=== PATIENT | male | born 1935 | race Caucasian/White ===

== ENCOUNTER 2017-06-22 07:31 | Inpatient (IN) | payer MEDICARE ==
[2017-06-22 08:45] LABS: Anisocytosis Slight; Basophils # (A) 0.1 k/uL (0-0.2); Basophils % (A) 1 %; CH 25.5; CHCM 32.6; Eosinophils # (A) 0.4 k/uL (0-0.7); Eosinophils % (A) 3 %; HCT 39.6 % (39.0-53.0); HDW 3.28; HGB 12.8 gm/dL (13.0-17.5); Hypochromasia Slight; Luc # (Auto) 0.13; Luc % (Auto) 1; Lymphocytes # (A) 1.3 k/uL (1.0-4.8); Lymphocytes % (A) 12 %; MCH 25.3 pg (25.0-35.0); MCHC 32.2 g/dL (31.0-37.0); MCV 78.6 fL (80.0-100.0); Mean Platelet Volume 7.4; Microcytosis Slight; Monocytes # (A) 0.7 k/uL (0-1.0); Monocytes % (A) 6 %; Neutrophils # (A) 8.2 k/uL (1.3-7.7); Neutrophils % (A) 76 %; RBC 5.04 m/uL (4.30-5.90); RDW 17.3 % (11.5-15.5); WBC 10.7 k/uL (3.8-10.6); WBC (Perox) 11.36
[2017-06-22 08:52] LABS: INR 1.3 (<1.2); Prothrombin Time 12.7 sec (9.0-12.0)
[2017-06-22 08:57] LABS: Calcium 9.2 mg/dL (8.4-10.2); Potassium 4.1 mmol/L (3.5-5.1); Total Bilirubin 0.9 mg/dL (0.2-1.3); Total Protein 6.2 g/dL (6.3-8.2)
--- NOTE | 2017-06-22 08:57 | XR ---
EXAMINATION TYPE: XR chest 2V DATE OF EXAM: 06/22/2017 COMPARISON: Chest x-ray January 13, 2017. HISTORY: History of open heart surgery with shortness of breath. TECHNIQUE: Frontal and lateral views of the chest are obtained. FINDINGS: There is stable right internal jugular Mediport catheter. Sternal wires and mediastinal cli ps are redemonstrated. There is persistent mild cardiomegaly with dual lead pacemaker and atheroscler otic thoracic aorta. There is chronic emphysematous change with persistent small to moderate size lef t pleural effusion or pleural thickening with increased lateral component noted. Increasing reticular interstitial prominence is present. The osseous structures remain demineralized. IMPRESSION: Background of chronic emphysematous change and chronic fibrosis with increased interstit ial prominence suggests new interstitial edema on background of chronic change, correlate for CHF exa cerbation given finding of mild cardiomegaly. Addition there is suspicious small to moderate lobulate d left pleural effusion or pleural thickening extending to lung apex level noted more prominent versu s prior. Pleural-based neoplasm needs to be considered given unilateral findings.
[2017-06-22] MEDS ORDERED: ASPIRIN 325 MG TAB PO STA (09:06)
[2017-06-22] MEDS ORDERED: FUROSEMIDE 10 MG/ML 4 ML VIAL IV STA (09:06)
[2017-06-22 09:19] LABS: Creatine Kinase MB 0.9 ng/mL (0.0-2.4); Troponin I 0.03 ng/mL (0.000-0.034)
[2017-06-22] MEDS ORDERED: NALOXONE 0.4 MG/ML 1 ML VIAL IV PRN (09:23)
--- NOTE | 2017-06-22 09:33 | ED ---
General Adult HPI - General Chief complaint: Shortness of Breath Stated complaint: Difficulty Breathing Time Seen by Provider: 06/22/17 07:42 Source: patient, RN notes reviewed, old records reviewed Mode of arrival: wheelchair Limitations: no limitations - History of Present Illness Initial comments: 82-year-old male history of CAD status post CABG, congestive heart failure, and COPD presents with a one-month history of worsening dyspnea. Patient does complain of orthopnea which is worse over the past 24 hours. Patient was unable to catch his breath even though he transition from bed to a chair this evening. Patient denies chest pain. Denies significant cough. Denies fever or chills. Patient does note some intermittent trace lower extremity swelling. He has history of pleural effusion requiring drainage this was several years ago. Patient states that approximately 3 weeks ago his Lasix was increased from 40 mg daily to 40 mg twice a day. No other change in medication. No history of chest pain over the past month. No significant change in diet. - Related Data Home Medications Medication Instructions Recorded Confirmed Aspirin EC [Ecotrin Low Dose] 81 mg PO DAILY 01/31/15 08/18/15 Allopurinol [Zyloprim] 100 mg PO BID 08/14/15 08/18/15 Amiodarone [Cordarone] 200 mg PO DAILY 08/14/15 08/18/15 Insulin Aspart [NovoLOG Flexpen] 8 unit SQ HS 08/14/15 08/18/15 Insulin Aspart [NovoLOG Flexpen] 22 unit SQ AC-BRKFST 08/14/15 08/18/15 Lisinopril [Zestril] 2.5 mg PO DAILY 08/14/15 08/18/15 Metoprolol Succinate (ER) [Toprol 25 mg PO BID 08/18/15 08/18/15 XL] Previous Rx's Medication Instructions Recorded Furosemide [Lasix] 40 mg PO BID #120 tab 02/17/15 Spironolactone [Aldactone] 25 mg PO DAILY #30 tab 02/17/15 glipiZIDE [Glucotrol] 5 mg PO AC-BID #60 tab 07/09/15 Allergies Allergy/AdvReac Type Severity Reaction Status Date / Time No Known Allergies Allergy Verified 06/22/17 07:37 Review of Systems ROS Statement: Those systems with pertinent positive or pertinent negative responses have been documented in the HPI. ROS Other: All systems not noted in ROS Statement are negative. Past Medical History Past Medical History: Atrial Fibrillation, Coronary Artery Disease (CAD), Heart Failure, Diabetes Mellitus, Hypertension Additional Past Medical History / Comment(s): Ischemic cardiomyopathy with history of AICD implantation, ventricular tachycardia requiring electrical cardioversion with Dr. 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 tach January 2015, AICD implantation Past Anesthesia/Blood Transfusion Reactions: No Reported Reaction Type of Cardiac Device: Permanent Pacemaker, AICD Device Placement Date:: 2004 Past Psychological History: No Psychological Hx Reported Smoking Status: Former smoker - Past Family History Father Family Medical History: Cancer, Myocardial Infarction ([place]) General Exam Limitations: no limitations General appearance: alert, in no apparent distress Head exam: Present: atraumatic, normocephalic Eye exam: Present: normal appearance, PERRL ENT exam: Present: normal exam, normal oropharynx Neck exam: Present: normal inspection, tenderness Respiratory exam: Present: respiratory distress, rales, decreased breath sounds (At the bases) Cardiovascular Exam: Present: regular rate, normal rhythm GI/Abdominal exam: Present: soft. Absent: distended Extremities exam: Present: normal capillary refill, pedal edema Back exam: Present: normal inspection, full ROM Neurological exam: Present: alert, oriented X3, CN II-XII intact. Absent: motor sensory deficit Psychiatric exam: Present: normal affect, normal mood Skin exam: Present: warm, dry. Absent: cyanosis, diaphoretic Course Vital Signs 06/22/17 07:33 Temperature 97.6 F Pulse Rate 77 Respiratory 18 Rate Blood Pressure 133/63 O2 Sat by Pulse 92 L Oximetry EKG Findings - EKG Comments: EKG Findings:: EKG shows paced rhythm, ventricular rate is 69, IL interval 296, there is right axis deviation, QRS duration 160, long QT at 505. No signs of ischemia. Medical Decision Making - Medical Decision Making 82-year-old male presenting with worsening shortness of breath and orthopnea. Patient does have history of heart failure. Symptoms worsened this evening prompting ER evaluation. On examination patient does appear fluid overloaded with peripheral edema and bilateral Rales on pulmonary auscultation. EKG is nonischemic. There is no history of chest pain. Chest x-ray does show pulmonary vascular congestion with left-sided pleural effusion. Patient is given IV Lasix, and aspirin in the emergency department. Laboratory studies reveal elevated creatinine which is at the patient's baseline. Troponin is mildly elevated in the setting of CK the. BNP is 10,000 consistent with congestive heart failure. Patient will be admitted for further diuresis. Diagnosis: Acute on chronic heart failure, CKD - Lab Data Result diagrams: 06/22/17 08:12 06/22/17 08:12 Lab Results 06/22/17 06/22/17 06/22/17 Range/Units 08:12 08:12 08:12 WBC 10.7 H (3.8-10.6) k/uL RBC 5.04 (4.30-5.90) m/uL Hgb 12.8 L (13.0-17.5) gm/dL Hct 39.6 (39.0-53.0) % MCV 78.6 L (80.0-100.0) fL MCH 25.3 (25.0-35.0) pg MCHC 32.2 (31.0-37.0) g/dL RDW 17.3 H (11.5-15.5) % Plt Count 279 (150-450) k/uL Neutrophils % 76 % Lymphocytes % 12 % Monocytes % 6 % Eosinophils % 3 % Basophils % 1 % Neutrophils # 8.2 H (1.3-7.7) k/uL Lymphocytes # 1.3 (1.0-4.8) k/uL Monocytes # 0.7 (0-1.0) k/uL Eosinophils # 0.4 (0-0.7) k/uL Basophils # 0.1 (0-0.2) k/uL Hypochromasia Slight Anisocytosis Slight Microcytosis Slight PT (9.0-12.0) sec INR (<1.2) APTT (22.0-30.0) sec Sodium 145 (137-145) mmol/L Potassium 4.1 (3.5-5.1) mmol/L Chloride 107 (98-107) mmol/L Carbon Dioxide 25 (22-30) mmol/L Anion Gap 13 mmol/L BUN 42 H (9-20) mg/dL Creatinine 1.95 H (0.66-1.25) mg/dL Est GFR (MDRD) Af Amer 40 (>60 ml/min/1.73 sqM) Est GFR (MDRD) Non-Af 33 (>60 ml/min/1.73 sqM) Glucose 106 H (74-99) mg/dL Calcium 9.2 (8.4-10.2) mg/dL Magnesium 2.0 (1.6-2.3) mg/dL Total Bilirubin 0.9 (0.2-1.3) mg/dL AST 14 L (17-59) U/L ALT 25 (21-72) U/L Alkaline Phosphatase 112 (38-126) U/L Total Creatine Kinase 29 L (55-170) U/L CK-MB (CK-2) 0.9 (0.0-2.4) ng/mL CK-MB (CK-2) Rel Index 3.1 Troponin I 0.030 (0.000-0.034) ng/mL NT-Pro-B Natriuret Pep pg/mL Total Protein 6.2 L (6.3-8.2) g/dL Albumin 3.8 (3.5-5.0) g/dL 06/22/17 06/22/17 Range/Units 08:12 08:12 WBC (3.8-10.6) k/uL RBC (4.30-5.90) m/uL Hgb (13.0-17.5) gm/dL Hct (39.0-53.0) % MCV (80.0-100.0) fL MCH (25.0-35.0) pg MCHC (31.0-37.0) g/dL RDW (11.5-15.5) % Plt Count (150-450) k/uL Neutrophils % % Lymphocytes % % Monocytes % % Eosinophils % % Basophils % % Neutrophils # (1.3-7.7) k/uL Lymphocytes # (1.0-4.8) k/uL Monocytes # (0-1.0) k/uL Eosinophils # (0-0.7) k/uL Basophils # (0-0.2) k/uL Hypochromasia Anisocytosis Microcytosis PT 12.7 H (9.0-12.0) sec INR 1.3 H (<1.2) APTT 27.0 (22.0-30.0) sec Sodium (137-145) mmol/L Potassium (3.5-5.1) mmol/L Chloride (98-107) mmol/L Carbon Dioxide (22-30) mmol/L Anion Gap mmol/L BUN (9-20) mg/dL Creatinine (0.66-1.25) mg/dL Est GFR (MDRD) Af Amer (>60 ml/min/1.73 sqM) Est GFR (MDRD) Non-Af (>60 ml/min/1.73 sqM) Glucose (74-99) mg/dL Calcium (8.4-10.2) mg/dL Magnesium (1.6-2.3) mg/dL Total Bilirubin (0.2-1.3) mg/dL AST (17-59) U/L ALT (21-72) U/L Alkaline Phosphatase (38-126) U/L Total Creatine Kinase (55-170) U/L CK-MB (CK-2) (0.0-2.4) ng/mL CK-MB (CK-2) Rel Index Troponin I (0.000-0.034) ng/mL NT-Pro-B Natriuret Pep 9160 pg/mL Total Protein (6.3-8.2) g/dL Albumin (3.5-5.0) g/dL Disposition Clinical Impression: Systolic congestive heart failure Disposition: ADMITTED IP TO THIS [facility] Condition: Stable Referrals: Clarita Marcelo MD [Primary Care Provider] - 1-2 days Decision to Admit Reason: Admit from EC Decision Date: 06/22/17 Decision Time: 09:33
[2017-06-22 12:16] LABS: Glucose,Whole Blood 102 mg/dL (75-99)
[2017-06-22] MEDS ORDERED: ONDANSETRON 4 MG/2 ML VIAL IVP PRN (13:00)
[2017-06-22] MEDS ORDERED: ACETAMINOPHEN TAB 325 MG TAB PO PRN (13:00)
[2017-06-22] MEDS ORDERED: Magnesium Replacement Protocol 1 EACH MISC MISCELLANE PRN (13:01)
[2017-06-22] MEDS ORDERED: Potassium Replacement Protocol 1 EACH MISC MISCELLANE PRN (13:01)
--- NOTE | 2017-06-22 13:20 | P.HPIM ---
History of Present Illness H&P Date: 06/22/17 Chief Complaint: Worsening shortness of breath This is a 82-year-old gentleman with past medical history noted below significant for history of coronary artery disease with known underlying systolic heart failure who presented to the emergency room with worsening shortness of breath. Patient said that his symptoms has been getting progressively worse over the past week. He denies any chest pain. He is also complaining of worsening bilateral lower extremity swelling. Patient admits that he was only taking Lasix at home once a day whereas he was instructed by me to take Lasix twice a day. His at bedside is frustrated that he is not taking his medication like he is supposed to. In the emergency room chest x- ray showed evidence of fluid overload and BNP was elevated. Patient was started on IV Lasix and is currently admitted to the hospital for further evaluation. Review of Systems Review of system: 14 points review of systems were obtained and were negative except to what were mentioned in the HPI. Past Medical History Past Medical History: Atrial Fibrillation, Coronary Artery Disease (CAD), Cancer , Heart Failure, COPD, Diabetes Mellitus, Hypertension, Liver Disease, Myocardial Infarction ([place]) Additional Past Medical History / Comment(s): Ischemic cardiomyopathy/AICD implantation, ventricular tachycardia/cardioversion, Afib/RVR, 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, NIDDM type II, occasional bilateral feet's toe numbness/tingling, pleural effusion L side with thoracentesis x2, sepsis, urinary retention, hepatitis in 1950 type unknown, some dysphagia-no special diet, Last Myocardial Infarction Date:: 1998 History of Any Multi-Drug Resistant Organisms: None Reported Past Surgical History: AICD, Coronary Bypass/CABG, Pacemaker Additional Past Surgical History / Comment(s): 1998 PTCA, 1998 4 vessel CABG, cardioversion for slow VT, AICD originally implanted 2006 and battery replaced in 2014, L thoracentesis x2, EGD with dilation, colonoscopy, bone marrow bx, bilateral cataract removal, mediport. Past Anesthesia/Blood Transfusion Reactions: No Reported Reaction Type of Cardiac Device: Permanent Pacemaker, AICD Device Placement Date:: 2004 implant/2014 gen change Smoking Status: Former smoker - Past Family History Mother Family Medical History: No Reported History Additional Family Medical History / Comment(s): Mother was healthy and lived to be 86yrs old. Father Family Medical History: Cancer Additional Family Medical History / Comment(s): Father had bone cancer. He also had "heart problems." He at the age of 82 yrs. Medications and Allergies Home Medications Medication Instructions Recorded Confirmed Type Aspirin EC [Ecotrin Low Dose] 81 mg PO DAILY 01/31/15 06/22/17 History Allopurinol [Zyloprim] 200 mg PO DAILY 08/14/15 06/22/17 History Amiodarone [Cordarone] 200 mg PO DAILY 08/14/15 06/22/17 History Cholecalciferol [Vitamin D3] 1,000 unit PO DAILY 06/22/17 06/22/17 History Furosemide [Lasix] 40 mg PO DAILY 06/22/17 06/22/17 History Levothyroxine Sodium [Synthroid] 100 mcg PO DAILY 06/22/17 06/22/17 History Metoprolol Tartrate 12.5 mg PO DAILY 06/22/17 06/22/17 History glipiZIDE [Glucotrol] 5 mg PO BID 06/22/17 06/22/17 History Allergies Allergy/AdvReac Type Severity Reaction Status Date / Time No Known Allergies Allergy Verified 06/22/17 12:21 Physical Exam Vitals: Vital Signs Temp Pulse Pulse Resp BP BP Pulse Ox 06/22/17 12:05 97.4 F L 66 18 113/56 98 06/22/17 11:50 97.8 F 68 18 118/59 94 L 06/22/17 11:42 97.8 F 68 18 118/59 94 L 06/22/17 11:11 70 18 130/58 96 06/22/17 07:33 97.6 F 77 18 133/63 92 L Intake and Output 06/21/17 06/22/17 06/22/17 22:59 06:59 14:59 Output Total 100 Balance -100 Output: Urine 100 Other: Weight 90.718 kg Patient Weight 06/23/17 06:59 Weight 90.718 kg General: The patient is awake and alert, in no distress Eye: there is normal conjunctiva bilaterally. Neck: The neck is supple, there is no JVD. Cardiovascular: Normal S1-S2, no S3-S4, no murmurs. Respiratory: Lungs with bibasilar crackles Gastrointestinal: Abdomen is soft, nontender Musculoskeletal: There is +2 edema up to the midshin. Neurological:. Speech is normal. Skin: Skin is warm and dry Results CBC & Chem 7: 06/22/17 08:12 06/22/17 08:12 Labs: Abnormal Lab Results - Last 24 Hours (Table) 06/22/17 06/22/17 06/22/17 Range/Units 08:12 08:12 08:12 WBC 10.7 H (3.8-10.6) k/uL Hgb 12.8 L (13.0-17.5) gm/dL MCV 78.6 L (80.0-100.0) fL RDW 17.3 H (11.5-15.5) % Neutrophils # 8.2 H (1.3-7.7) k/uL PT (9.0-12.0) sec INR (<1.2) BUN 42 H (9-20) mg/dL Creatinine 1.95 H (0.66-1.25) mg/dL Glucose 106 H (74-99) mg/dL POC Glucose (mg/dL) (75-99) mg/dL AST 14 L (17-59) U/L Total Creatine Kinase 29 L (55-170) U/L Total Protein 6.2 L (6.3-8.2) g/dL 06/22/17 06/22/17 Range/Units 08:12 12:11 WBC (3.8-10.6) k/uL Hgb (13.0-17.5) gm/dL MCV (80.0-100.0) fL RDW (11.5-15.5) % Neutrophils # (1.3-7.7) k/uL PT 12.7 H (9.0-12.0) sec INR 1.3 H (<1.2) BUN (9-20) mg/dL Creatinine (0.66-1.25) mg/dL Glucose (74-99) mg/dL POC Glucose (mg/dL) 102 H (75-99) mg/dL AST (17-59) U/L Total Creatine Kinase (55-170) U/L Total Protein (6.3-8.2) g/dL Thrombosis Risk Factor Assmnt - Choose All That Apply Any of the Below Risk Factors Present?: Yes Each Factor Represents 1 point: Abnormal pulmonary function (COPD), Heart failure (<1month), Obesity (BMI >25), Swollen legs (current) Other Risk Factors: Yes Each Risk Factor Represents 2 Points: Malignancy Each Risk Factor Represents 3 Points: Age 75 years or older Other congenital or acquired thrombophilia - If yes, enter type in comment: No Thrombosis Risk Factor Assessment Total Risk Factor Score: 9 Thrombosis Risk Factor Assessment Level: High Risk Assessment and Plan Plan: 1. Acute systolic heart failure exacerbation: Last echocardiogram approximately a month ago in the office showing EF of 20% 2. Underlying ischemic cardiomyopathy 3. 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 Essential hypertension: Blood pressure well-controlled 5. Next hyperlipidemia, diet-controlled 6. Underlying hypothyroidism on levothyroxin 7. Stage IIIB chronic kidney disease 8. Suspicious lobulated left pleural effusion with concerns about pleural- based neoplasm: I will consult pulmonology for further evaluation. May consider computed tomography scan of the chest without contrast. Today, I reviewed his medication list the lab work results. Continue diuresis with IV Lasix. Monitor kidney function and electrolytes closely. Consult cardiology for further evaluation. Repeat lab work in the morning. Patient was counseled extensively about medication compliance.
[2017-06-22 14:49] LABS: Creatine Kinase MB 0.8 ng/mL (0.0-2.4); Troponin I 0.025 ng/mL (0.000-0.034)
--- NOTE | 2017-06-22 15:14 | P.CNPUL ---
History of Present Illness Consult date: 06/22/17 Reason for consult: dyspnea, cough, chest pain, COPD, hypoxemia, pleural effusion History of present illness: Patient seen and evaluated examined on 6 floor is present at the bedside patient has been having increasing shortness of breath for 2-3 weeks has some dry nonproductive cough is present as well he also noted some increased swelling of the lower extremity he has been taking his Lasix off and on with due to progressive shortness of breath cough not feeling well he's been advised to come into the emergency department here where he was seen evaluated examined now admitted into the hospital for further evaluation on specific questioning he denies any night sweats or fever or chills cough is mostly dry and nonproductive he has received Lasix and he is been diuresing very well. This is a 82-year-old gentleman with past medical history noted below significant for history of coronary artery disease with known underlying systolic heart failure who presented to the emergency room with worsening shortness of breath. Patient said that his symptoms has been getting progressively worse over the past week. He denies any chest pain. He is also complaining of worsening bilateral lower extremity swelling. Patient admits that he was only taking Lasix at home once a day whereas he was instructed by me to take Lasix twice a day. His at bedside is frustrated that he is not taking his medication like he is supposed to. In the emergency room chest x- ray showed evidence of fluid overload and BNP was elevated. Patient was started on IV Lasix and is currently admitted to the hospital for further evaluation. Review of Systems Constitutional: Reports as per HPI, Reports daytime sleepiness, Reports fatigue , Reports poor appetite, Reports weakness Eyes: denies as per HPI, denies blurred vision, denies bulging eye, denies decreased vision, denies diplopia, denies discharge, denies dry eye, denies irritation, denies itching, denies pain, denies photophobia, denies loss of peripheral vision, denies loss of vision, denies tunnel vision/blind spots Ears: deny: decreased hearing, ear discharge, earache, tinnitus Ears, nose, mouth and throat: Reports as per HPI Cardiovascular: Reports as per HPI Respiratory: Reports as per HPI Gastrointestinal: Reports as per HPI Genitourinary: Reports as per HPI Musculoskeletal: Reports as per HPI Musculoskeletal: absent: ankle pain, ankle stiffness, ankle swelling, as per HPI , elbow pain, elbow stiffness, elbow swelling, foot pain, foot stiffness, foot swelling, hand pain, hand stiffness, hand swelling, hip pain, hip stiffness, hip swelling, knee pain, knee stiffness, knee swelling, shoulder pain, shoulder stiffness, shoulder swelling, wrist pain, wrist stiffness, wrist swelling Integumentary: Reports as per HPI Neurological: Reports as per HPI Psychiatric: Reports as per HPI Endocrine: Reports as per HPI Hematologic/Lymphatic: Reports as per HPI Allergic/Immunologic: Reports as per HPI Past Medical History Past Medical History: Atrial Fibrillation, Coronary Artery Disease (CAD), Cancer , Heart Failure, COPD, Diabetes Mellitus, Hypertension, Liver Disease, Myocardial Infarction ([place]) Additional Past Medical History / Comment(s): Ischemic cardiomyopathy/AICD implantation, ventricular tachycardia/cardioversion, Afib/RVR, 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, NIDDM type II, occasional bilateral feet's toe numbness/tingling, pleural effusion L side with thoracentesis x2, sepsis, urinary retention, hepatitis in 1950 type unknown, some dysphagia-no special diet, Last Myocardial Infarction Date:: 1998 History of Any Multi-Drug Resistant Organisms: None Reported Past Surgical History: AICD, Coronary Bypass/CABG, Pacemaker Additional Past Surgical History / Comment(s): 1998 PTCA, 1998 4 vessel CABG, cardioversion for slow VT, AICD originally implanted 2006 and battery replaced in 2014, L thoracentesis x2, EGD with dilation, colonoscopy, bone marrow bx, bilateral cataract removal, mediport. Past Anesthesia/Blood Transfusion Reactions: No Reported Reaction Type of Cardiac Device: Permanent Pacemaker, AICD Device Placement Date:: 2004 implant/2014 gen change Smoking Status: Former smoker - Past Family History Mother Family Medical History: No Reported History Additional Family Medical History / Comment(s): Mother was healthy and lived to be 86yrs old. Father Family Medical History: Cancer Additional Family Medical History / Comment(s): Father had bone cancer. He also had "heart problems." He at the age of 82 yrs. Medications and Allergies Home Medications Medication Instructions Recorded Confirmed Type Aspirin EC [Ecotrin Low Dose] 81 mg PO DAILY 01/31/15 06/22/17 History Allopurinol [Zyloprim] 200 mg PO DAILY 08/14/15 06/22/17 History Amiodarone [Cordarone] 200 mg PO DAILY 08/14/15 06/22/17 History Cholecalciferol [Vitamin D3] 1,000 unit PO DAILY 06/22/17 06/22/17 History Furosemide [Lasix] 40 mg PO DAILY 06/22/17 06/22/17 History Levothyroxine Sodium [Synthroid] 100 mcg PO DAILY 06/22/17 06/22/17 History Metoprolol Tartrate 12.5 mg PO DAILY 06/22/17 06/22/17 History glipiZIDE [Glucotrol] 5 mg PO BID 06/22/17 06/22/17 History Allergies Allergy/AdvReac Type Severity Reaction Status Date / Time No Known Allergies Allergy Verified 06/22/17 12:21 Physical Exam Vitals: Vital Signs Temp Pulse Pulse Resp BP BP Pulse Ox 06/22/17 12:05 97.4 F L 66 18 113/56 98 06/22/17 11:50 97.8 F 68 18 118/59 94 L 06/22/17 11:42 97.8 F 68 18 118/59 94 L 06/22/17 11:11 70 18 130/58 96 06/22/17 07:33 97.6 F 77 18 133/63 92 L Intake and Output 06/22/17 06/22/17 06/22/17 06:59 14:59 22:59 Output Total 100 Balance -100 Output: Urine 100 Other: Weight 90.718 kg Patient Weight 06/23/17 06:59 Weight 90.718 kg General: The patient is awake and alert, in no distress Eye: there is normal conjunctiva bilaterally. Neck: The neck is supple, there is no JVD. Cardiovascular: Normal S1-S2, no S3-S4, no murmurs. Respiratory: Lungs with bibasilar crackles Gastrointestinal: Abdomen is soft, nontender Musculoskeletal: There is +2 edema up to the midshin. Neurological:. Speech is normal. Skin: Skin is warm and dry Results - Laboratory Findings CBC and BMP: 06/22/17 08:12 06/22/17 08:12 PT/INR, D-dimer PT 12.7 sec (9.0-12.0) H 06/22/17 08:12 INR 1.3 (<1.2) H 06/22/17 08:12 Abnormal lab findings: Abnormal Labs 06/22/17 06/22/17 06/22/17 08:12 08:12 08:12 WBC 10.7 H Hgb 12.8 L MCV 78.6 L RDW 17.3 H Neutrophils # 8.2 H PT INR BUN 42 H Creatinine 1.95 H Glucose 106 H POC Glucose (mg/dL) AST 14 L Total Creatine Kinase 29 L Total Protein 6.2 L 06/22/17 06/22/17 06/22/17 08:12 12:11 13:46 WBC Hgb MCV RDW Neutrophils # PT 12.7 H INR 1.3 H BUN Creatinine Glucose POC Glucose (mg/dL) 102 H AST Total Creatine Kinase 27 L Total Protein - Diagnostic Findings Chest x-ray: report reviewed, image reviewed (Left-sided pleural effusion slightly worse than before) Assessment and Plan Plan: 1. Acute systolic heart failure exacerbation: Last echocardiogram approximately a month ago in the office showing EF of 20% 2. Suspicious lobulated left pleural effusion with concerns about pleural-based neoplasm: I will repeat chest x-ray for further evaluation. May consider computed tomography scan of the chest without contrast, pending finding on chest x-ray 3. Coronary artery disease with history of CABG many years ago 4. Essential hypertension: Blood pressure well-controlled 5. Next hyperlipidemia, diet-controlled 6. Underlying hypothyroidism on levothyroxin 7. Stage IIIB chronic kidney disease 8. History of chronic recurrent left pleural effusion with history of lymphoma requiring frequent thoracentesis on the left side, lately patient has been in remission in that regard Time with Patient: Greater than 30
--- NOTE | 2017-06-22 15:53 | P.PN ---
Progress Note - Text I follow this patient in the office and I saw him on 06/09/2017. Patient was supposed to go to the office for stress test. He been complaining of vague discomfort of the chest and shortness of breath. I had increased dose of Lasix. This morning I met him in the parking lot of the office and he was complaining of shortness of breath orthopnea and PND which is getting worse and therefore I sent him to the emergency room. I spoke to the nurse practitioner on the service Dr. Alexis and he will be seen by Dr. Xiong My plan was to start ENTRESTO and switch to carvedilol, watch electrolytes increase the dose of Lasix that he is noncompliant with diuretic therapy and consider adding spironolactone as long as his renal function and potassium are within normal limits. TSH checked He has an underlying left bundle branch block pattern and I will consider biventricular ICD upgrade in the future for heart failure management Dr. courtney's note was reviewed regarding the loculated pleural effusion and I will await further evaluation with CT See full evaluation/consultation by Dr. Xiong and Dr. alexis
[2017-06-22 16:46] LABS: Glucose,Whole Blood 117 mg/dL (75-99)
[2017-06-22] MEDS: glipiZIDE 5 MG TAB PO SCH (17:23)
[2017-06-22] MEDS: CARVEDILOL 1.563 MG TAB PO SCH (17:23)
[2017-06-22] MEDS: HEPARIN SODIUM,PORCINE 5,000 UNIT/ML 1 ML VIAL SQ SCH (20:05)
[2017-06-22] MEDS: FUROSEMIDE 10 MG/ML 4 ML VIAL IV SCH (20:05)
[2017-06-22 20:54] LABS: Glucose,Whole Blood 82 mg/dL (75-99)
[2017-06-22] MEDS ORDERED: METOPROLOL TARTRATE 12.5 MG TAB PO SCH (21:00)
[2017-06-22 21:06] LABS: Creatine Kinase MB 0.8 ng/mL (0.0-2.4); Troponin I 0.023 ng/mL (0.000-0.034)
[2017-06-23 05:42] LABS: Glucose,Whole Blood 89 mg/dL (75-99)
[2017-06-23 06:03] LABS: Anisocytosis Slight; Basophils # (A) 0.1 k/uL (0-0.2); Basophils % (A) 1 %; CH 25.3; Eosinophils # (A) 0.4 k/uL (0-0.7); Eosinophils % (A) 5 %; HCT 39.7 % (39.0-53.0); HDW 3.17; HGB 12.3 gm/dL (13.0-17.5); Hypochromasia Slight; Luc # (Auto) 0.14; Luc % (Auto) 2; Lymphocytes # (A) 1.5 k/uL (1.0-4.8); Lymphocytes % (A) 19 %; MCH 24.7 pg (25.0-35.0); MCV 79.5 fL (80.0-100.0); Mean Platelet Volume 7.4; Monocytes # (A) 0.6 k/uL (0-1.0); Monocytes % (A) 8 %; Neutrophils # (A) 5.2 k/uL (1.3-7.7); Neutrophils % (A) 66 %; RBC 4.99 m/uL (4.30-5.90); RDW 17.3 % (11.5-15.5); WBC 7.9 k/uL (3.8-10.6); WBC (Perox) 8.17
[2017-06-23 06:15] LABS: Calcium 8.9 mg/dL (8.4-10.2); Magnesium 1.9 mg/dL (1.6-2.3); Phosphorous 3.8 mg/dL (2.5-4.5); Potassium 4.5 mmol/L (3.5-5.1); Total Protein 5.9 g/dL (6.3-8.2)
[2017-06-23] MEDS: glipiZIDE 5 MG TAB PO SCH ×2 (06:50→17:19)
[2017-06-23] MEDS: CARVEDILOL 1.563 MG TAB PO SCH ×2 (06:50→17:19)
[2017-06-23] MEDS: LEVOTHYROXINE 100 MCG TAB PO SCH (06:50)
--- NOTE | 2017-06-23 07:52 | P.PN ---
Subjective Principal diagnosis: Acute on chronic hypoxic respiratory failure, acute exacerbation of CHF related to acute on chronic systolic heart failure, left-sided pleural effusion, history of B-cell lymphoma, history of chronic recurrent pleural effusion with multiple thoracentesis on the left side 06/23/2017, patient seen and evaluated examined during the rounds he is awake and alert breathing comfortably he is currently on room air breathing fairly well but does get short of breath occasionally he does desire deep breaths, it home however he is on home oxygen while in the hospital he is on oxygen as well. Temporary disconnected himself I have advised him to keep on using the oxygen given his marginal saturation. He denies any cough he's been diuresing fairly well swelling in the lower extremity has been improving along with his respiratory status as well Objective - Vital Signs Vital signs: Vital Signs Temp 97.4 F L 06/23/17 04:00 Pulse 70 06/23/17 04:00 Resp 18 06/23/17 04:00 BP 106/54 06/23/17 04:00 Pulse Ox 94 L 06/23/17 04:00 Intake & Output 06/22/17 06/23/17 06/23/17 18:59 06:59 18:59 Intake Total 360 100 Output Total 1100 800 Balance -740 -800 100 Weight 90.718 kg 88.8 kg Intake: Oral 360 100 Output: Urine 1100 800 Other: Voiding Method Urinal # Voids 2 - Exam General: The patient is awake and alert, in no distress Eye: there is normal conjunctiva bilaterally. Neck: The neck is supple, there is no JVD. No bruit and no lymphadenopathy, neck veins however prominent Cardiovascular: Normal S1-S2, no S3-S4, no murmurs. Respiratory: Lungs with bibasilar crackles, slightly decreased air entry on the left base is present with some dullness to percussion appears to have improved compared to yesterday Gastrointestinal: Abdomen is soft, nontender Musculoskeletal: There is trace edema at pretibial area Neurological:. Speech is normal. Coordination intact good bilateral strength and cranial last 2-12 are within normal limit. Neuro exam otherwise normal Skin: Skin is warm and dry - Labs CBC & Chem 7: 06/23/17 05:35 06/23/17 05:35 Labs: Abnormal Lab Results - Last 24 Hours (Table) 09/06/22/17 06/22/17 Range/Units 08:12 08:12 08:12 WBC 10.7 H (3.8-10.6) k/uL Hgb 12.8 L (13.0-17.5) gm/dL MCV 78.6 L (80.0-100.0) fL MCH (25.0-35.0) pg RDW 17.3 H (11.5-15.5) % Neutrophils # 8.2 H (1.3-7.7) k/uL PT (9.0-12.0) sec INR (<1.2) BUN 42 H (9-20) mg/dL Creatinine 1.95 H (0.66-1.25) mg/dL Glucose 106 H (74-99) mg/dL POC Glucose (mg/dL) (75-99) mg/dL AST 14 L (17-59) U/L Total Creatine Kinase 29 L (55-170) U/L Total Protein 6.2 L (6.3-8.2) g/dL 06/22/17 06/22/17 06/22/17 Range/Units 08:12 12:11 13:46 WBC (3.8-10.6) k/uL Hgb (13.0-17.5) gm/dL MCV (80.0-100.0) fL MCH (25.0-35.0) pg RDW (11.5-15.5) % Neutrophils # (1.3-7.7) k/uL PT 12.7 H (9.0-12.0) sec INR 1.3 H (<1.2) BUN (9-20) mg/dL Creatinine (0.66-1.25) mg/dL Glucose (74-99) mg/dL POC Glucose (mg/dL) 102 H (75-99) mg/dL AST (17-59) U/L Total Creatine Kinase 27 L (55-170) U/L Total Protein (6.3-8.2) g/dL 06/22/17 06/22/17 06/23/17 Range/Units 16:32 20:23 05:35 WBC (3.8-10.6) k/uL Hgb 12.3 L (13.0-17.5) gm/dL MCV 79.5 L (80.0-100.0) fL MCH 24.7 L (25.0-35.0) pg RDW 17.3 H (11.5-15.5) % Neutrophils # (1.3-7.7) k/uL PT (9.0-12.0) sec INR (<1.2) BUN (9-20) mg/dL Creatinine (0.66-1.25) mg/dL Glucose (74-99) mg/dL POC Glucose (mg/dL) 117 H (75-99) mg/dL AST (17-59) U/L Total Creatine Kinase 24 L (55-170) U/L Total Protein (6.3-8.2) g/dL 06/23/17 Range/Units 05:35 WBC (3.8-10.6) k/uL Hgb (13.0-17.5) gm/dL MCV (80.0-100.0) fL MCH (25.0-35.0) pg RDW (11.5-15.5) % Neutrophils # (1.3-7.7) k/uL PT (9.0-12.0) sec INR (<1.2) BUN 44 H (9-20) mg/dL Creatinine 2.10 H (0.66-1.25) mg/dL Glucose (74-99) mg/dL POC Glucose (mg/dL) (75-99) mg/dL AST (17-59) U/L Total Creatine Kinase (55-170) U/L Total Protein 5.9 L (6.3-8.2) g/dL - Imaging and Cardiology Chest x-ray: report reviewed, image reviewed (Chest x-ray performed to the earlier this morning on 06/23/2017 reviewed and compared with a chest x-ray performed on 06/22/2017 today morning x-ray is a portable view however continued to manifest interstitial edema with chronic changes in the left lower lobe which however appears to be not much change as dictated in plan we'll proceed with a computed tomography scan of the chest without dye) Assessment and Plan Plan: 1. Acute systolic heart failure exacerbation: Last echocardiogram approximately a month ago in the office showing EF of 20% 2. Suspicious lobulated left pleural effusion with concerns about pleural-based neoplasm: I have reviewed the repeat chest x-ray for further evaluation, there appears to be a chronic pleural effusion and pleural thickening, would consider obtaining computed tomography scan of the chest without contrast, 3. Coronary artery disease with history of CABG many years ago 4. Essential hypertension: Blood pressure well-controlled 5. Next hyperlipidemia, diet-controlled 6. Underlying hypothyroidism on levothyroxin 7. Stage IIIB chronic kidney disease 8. History of chronic recurrent left pleural effusion with history of lymphoma requiring frequent thoracentesis on the left side, lately patient has been in remission in that regard Time with Patient: Greater than 30
[2017-06-23] MEDS: FUROSEMIDE 10 MG/ML 4 ML VIAL IV SCH ×2 (09:02→20:22)
[2017-06-23] MEDS: CHOLECALCIFEROL 1,000 UNIT TAB PO SCH (09:02)
[2017-06-23] MEDS: HEPARIN SODIUM,PORCINE 5,000 UNIT/ML 1 ML VIAL SQ SCH ×2 (09:02→20:23)
[2017-06-23] MEDS: ALLOPURINOL 100 MG TAB PO SCH (09:02)
[2017-06-23] MEDS: AMIODARONE 200 MG TAB PO SCH (09:02)
[2017-06-23] MEDS: ASPIRIN 81 MG PO SCH (09:02)
--- NOTE | 2017-06-23 09:07 | XR ---
EXAMINATION TYPE: XR chest 1V DATE OF EXAM: 06/23/2017 COMPARISON: 06/22/2017 HISTORY: Difficulty breathing FINDINGS: There are bilateral pleural effusions with cardiomegaly and bibasilar infiltrate. There is a diffuse interstitial pattern. Postsurgical changes are noted. Mediport catheter seen. One of the sternotomy wires appears disrupted but stable. Arthropathy of the shoulders. IMPRESSION: 1. Bilateral pleural effusions greater on the left basilar infiltrate. Correlate for underlying inter stitial pulmonary fibrosis. Superimposed venous congestion or pneumonitis in the differential diagnos is.
--- NOTE | 2017-06-23 09:10 | CT ---
EXAMINATION TYPE: CT chest wo con DATE OF EXAM: 06/23/2017 COMPARISON: 01/18/2012 HISTORY: Pt poor history, Mass CT DLP: 529.1 mGycm. Automated Exposure Control for Dose Reduction was Utilized. TECHNIQUE: CT scan of the thorax is performed without IV contrast. FINDINGS: LUNGS: Diffuse interseptal lobular thickening is again appreciated, more pronounced than on the prior examination. This is seen throughout although perhaps more pronounced within the upper lungs. Locula robinson fluid is seen within the left interlobar fissure. Small layering bilateral pleural effusions are appreciated with associated minimal compressive dependent atelectasis. Mild paraseptal emphysematous changes are present. No bronchiectasis is appreciated. No pulmonary mass is seen, however evaluation for pulmonary nodules is diminished due to the scattered geographic groundglass opacities and interse ptal lobular thickening. The tracheobronchial tree is patent. MEDIASTINUM: Left ventricular enlargement is again seen as well as multilead left-sided cardiac devic e, diffuse three-vessel coronary artery calcifications, valvular calcifications and calcific atheroma tous changes of the thoracic aorta. Lack of IV contrast is noted to limit evaluation for mediastinal and especially hilar adenopathy. There are no definitive greater than 1 cm hilar or mediastinal lymph nodes. Nearly enlarged 1.0 cm right paratracheal lymph node is slightly enlarged in comparison to t he prior exam of 01/18/2012. Subcarinal lymph node has similar appearance. Hilar calcified mediastinal lymph nodes are noted. OSSEOUS STRUCTURES: Moderate degenerative changes of the visualized thoracic spine are seen as well a s median sternotomy wires. Punctate sclerotic focus is present within the lateral seventh rib on the right, unchanged from the prior and most likely relating to benign bone island. OTHER: Bilateral retroareolar gynecomastia is present. Small hiatal hernia is present. Scattered punc grande calcifications are seen within the splenic parenchyma. Exophytic left 4.5 cm upper pole renal cy st is seen as well as exophytic anterior midpole right 3.1 cm renal cyst. Punctate calcification is s een within the hepatic parenchyma. 1.9 cm hepatic cyst is present within the left lobe. IMPRESSION: 1. Progressed geographic groundglass airspace disease and interseptal lobular thickening as well as b ilateral pleural effusions and cardiomegaly all suggestive of decompensated congestive heart failure. This limits evaluation for pulmonary nodules although no pulmonary masses are seen. Loculated fluid is seen in the left interlobar fissure. 2. Prominent but nonenlarged right paratracheal lymph node, increased in size from the prior exam of 2011. This finding is nonspecific and may be reactive. 3. Incidental note is made of bilateral simple renal cysts, hepatic cyst, small hiatal hernia, spleni c/hepatic/hilar granulomatous disease and bilateral gynecomastia.
--- NOTE | 2017-06-23 11:19 | P.PN ---
Subjective Patient is feeling better today. He is diuresing well. Objective - Vital Signs Vital signs: Vital Signs Temp 97.2 F L 06/23/17 08:00 Pulse 77 06/23/17 08:00 Resp 18 06/23/17 08:00 BP 90/51 06/23/17 08:00 Pulse Ox 96 06/23/17 08:00 Intake & Output 06/22/17 06/23/17 06/23/17 18:59 06:59 18:59 Intake Total 360 100 Output Total 1100 800 Balance -740 -800 100 Weight 90.718 kg 88.8 kg Intake: Oral 360 100 Output: Urine 1100 800 Other: Voiding Method Urinal Urinal # Voids 2 1 - Exam General: The patient is awake and alert, in no distress Eye: there is normal conjunctiva bilaterally. Neck: The neck is supple, there is no JVD. Cardiovascular: Normal S1-S2, no S3-S4, no murmurs. Respiratory: Lungs clear to auscultation bilaterally Gastrointestinal: Abdomen is soft, nontender Musculoskeletal: There is +1 pedal edema. Skin: Skin is warm and dry - Labs CBC & Chem 7: 06/23/17 05:35 06/23/17 05:35 Labs: Abnormal Lab Results - Last 24 Hours (Table) 06/22/17 06/22/17 06/22/17 Range/Units 12:11 13:46 16:32 Hgb (13.0-17.5) gm/dL MCV (80.0-100.0) fL MCH (25.0-35.0) pg RDW (11.5-15.5) % BUN (9-20) mg/dL Creatinine (0.66-1.25) mg/dL POC Glucose (mg/dL) 102 H 117 H (75-99) mg/dL Total Creatine Kinase 27 L (55-170) U/L Total Protein (6.3-8.2) g/dL 06/22/17 06/23/17 06/23/17 Range/Units 20:23 05:35 05:35 Hgb 12.3 L (13.0-17.5) gm/dL MCV 79.5 L (80.0-100.0) fL MCH 24.7 L (25.0-35.0) pg RDW 17.3 H (11.5-15.5) % BUN 44 H (9-20) mg/dL Creatinine 2.10 H (0.66-1.25) mg/dL POC Glucose (mg/dL) (75-99) mg/dL Total Creatine Kinase 24 L (55-170) U/L Total Protein 5.9 L (6.3-8.2) g/dL Assessment and Plan Plan: 1. Acute systolic heart failure exacerbation: Last echocardiogram approximately a month ago in the office showing EF of 20% 2. Underlying ischemic cardiomyopathy 3. Coronary artery disease with history of CABG many years ago 4. Essential hypertension: Blood pressure well-controlled 5. Next hyperlipidemia, diet-controlled 6. Underlying hypothyroidism on levothyroxin 7. Stage IIIB chronic kidney disease 8. Bilateral pleural effusion with evidence of fluid overload Today, I reviewed his medication list the lab work results. Continue diuresis with IV Lasix. Monitor kidney function and electrolytes closely. Cardiology and pulmonology following closely. Repeat lab work in the morning. Patient was started on Entresto
[2017-06-23 11:34] LABS: Glucose,Whole Blood 96 mg/dL (75-99)
--- NOTE | 2017-06-23 15:03 | CONS ---
ISAAC Pack is an 82-year-old gentleman with history of coronary artery disease, ischemic cardiomyopathy with severe LV systolic dysfunction, diabetes, hypertension, dyslipidemia. He is admitted to hospital with acute exacerbation of chronic systolic heart failure. His baseline ejection fraction is around 20%. His symptoms are primarily in the form of progressively worsening shortness of breath and some leg edema. He had recently been seen by Dr. Carrera in our office, and his note is in the chart. Please review it if you need to. At the time of my evaluation this morning, patient is comfortable at rest, hemodynamically stable, able to lie flat in the bed, and leg edema had improved. PAST MEDICAL HISTORY: Past medical history is significant for: 1. Coronary artery disease, status post CABG. 2. Status post AICD. 3. Diabetes. 4. Atrial fibrillation. 5. Congestive heart failure. 6. COPD. MEDICATIONS: Medications at home included 1. Aspirin. 2. Amiodarone 200 mg daily. 3. Lasix. 4. Metoprolol. 5. Synthroid. 6. Glipizide. ALLERGIES: CHARTED. FAMILY HISTORY: Negative for premature coronary artery disease. SOCIAL HISTORY: Negative for current smoking, ETOH abuse or drug abuse. REVIEW OF SYSTEMS: HEENT is unremarkable. CARDIAC: As described above. RESPIRATORY: As described above. GI: Negative. GENITOURINARY: Negative. ALLERGY/IMMUNOLOGIC: Negative. SKIN: Negative. MUSCULOSKELETAL: Significant for arthritis. PSYCHOSOCIAL: Negative. ENDOCRINE: Negative. DERMATOLOGICAL: Negative. CONSTITUTIONAL: Negative. ONCOLOGICAL: Negative. Rest of the system review is not relevant. EXAM: He is comfortable at rest. Vital signs are stable. There is no jugular venous distention. Carotid upstroke is normal. There is no bruit. Chest exam reveals diminished air entry at the bases. Heart exam reveals first and second heart sounds. No gallop. No murmur. ABDOMEN: Soft, nontender. Examination of the extremities reveals 1+ edema. Peripheral pulses are felt. LABS/IMAGING: Hemoglobin of 12.3. Platelet count is 265. Potassium is 4.5. BUN is 44. Creatinine is 2.1. EKG shows sinus rhythm, first-degree AV block and intraventricular conduction delay. CT scan of the chest showed small bilateral pleural effusions. ASSESSMENT: 1. Acute exacerbation of chronic systolic heart failure. 2. Coronary artery disease. 3. Status post AICD. PLAN: Patient will continue the Coreg, aspirin, amiodarone, Lasix 40 IV q.12, and had just been started on Entresto. Patient is not a candidate for Aldactone, as he has renal insufficiency with a creatinine of 2.1. MMTORIEL / TURNERN: [id number] /
[2017-06-23 16:31] LABS: Glucose,Whole Blood 109 mg/dL (75-99)
[2017-06-23] MEDS: SACUBITRIL/VALSARTAN 24 MG-26 MG TABLET PO SCH (20:22)
[2017-06-23 21:06] LABS: Glucose,Whole Blood 127 mg/dL (75-99)
[2017-06-24 06:05] LABS: Anisocytosis Slight; Basophils # (A) 0.1 k/uL (0-0.2); Basophils % (A) 1 %; CH 25.2; CHCM 32.1; Eosinophils # (A) 0.4 k/uL (0-0.7); Eosinophils % (A) 5 %; HCT 39.7 % (39.0-53.0); HDW 3.18; HGB 12.7 gm/dL (13.0-17.5); Hypochromasia Slight; Luc # (Auto) 0.13; Luc % (Auto) 2; Lymphocytes # (A) 1.6 k/uL (1.0-4.8); Lymphocytes % (A) 22 %; MCH 25.1 pg (25.0-35.0); MCV 78.7 fL (80.0-100.0); Mean Platelet Volume 7.6; Microcytosis Slight; Monocytes # (A) 0.5 k/uL (0-1.0); Monocytes % (A) 7 %; Neutrophils # (A) 4.8 k/uL (1.3-7.7); Neutrophils % (A) 64 %; RBC 5.04 m/uL (4.30-5.90); RDW 16.9 % (11.5-15.5); WBC 7.5 k/uL (3.8-10.6); WBC (Perox) 7.03
[2017-06-24 06:12] LABS: Glucose,Whole Blood 93 mg/dL (75-99)
[2017-06-24 06:15] LABS: Calcium 8.8 mg/dL (8.4-10.2); Phosphorous 3.8 mg/dL (2.5-4.5); Total Bilirubin 0.7 mg/dL (0.2-1.3); Total Protein 5.7 g/dL (6.3-8.2)
[2017-06-24] MEDS: CARVEDILOL 1.563 MG TAB PO SCH ×2 (06:31→16:10)
[2017-06-24] MEDS: LEVOTHYROXINE 100 MCG TAB PO SCH (06:31)
[2017-06-24] MEDS: glipiZIDE 5 MG TAB PO SCH ×2 (06:31→16:10)
[2017-06-24] MEDS: ALLOPURINOL 100 MG TAB PO SCH (08:00)
[2017-06-24] MEDS: AMIODARONE 200 MG TAB PO SCH (08:00)
[2017-06-24] MEDS: CHOLECALCIFEROL 1,000 UNIT TAB PO SCH (08:00)
[2017-06-24] MEDS: ASPIRIN 81 MG PO SCH (08:00)
[2017-06-24] MEDS: HEPARIN SODIUM,PORCINE 5,000 UNIT/ML 1 ML VIAL SQ SCH ×2 (08:01→20:33)
[2017-06-24] MEDS: SACUBITRIL/VALSARTAN 24 MG-26 MG TABLET PO SCH ×2 (08:01→20:33)
--- NOTE | 2017-06-24 08:25 | P.PN ---
Subjective Principal diagnosis: Acute on chronic hypoxic respiratory failure, acute exacerbation of CHF related to acute on chronic systolic heart failure, left-sided pleural effusion, history of B-cell lymphoma, history of chronic recurrent pleural effusion with multiple thoracentesis on the left side 06/24/2017, patient seen and evaluated examined on the selective care, patient is still short of breath on activity and exertion has severity however has improved swelling in the lower extremity has improved, patient is status post computed tomography scan of the chest which I have reviewed dated 06/23/2017. The computed tomography scan showed extensive thickening of the fissures and Septra in the lung, interstitial edema bilaterally is present the small pleural effusion on the left side and some loculated pleural effusion and the major fissure as been noted no obvious pleural based masses seen, borderline left adenopathy in paratracheal area seen which is 1 cm in size 06/23/2017, patient seen and evaluated examined during the rounds he is awake and alert breathing comfortably he is currently on room air breathing fairly well but does get short of breath occasionally he does desire deep breaths, it home however he is on home oxygen while in the hospital he is on oxygen as well. Temporary disconnected himself I have advised him to keep on using the oxygen given his marginal saturation. He denies any cough he's been diuresing fairly well swelling in the lower extremity has been improving along with his respiratory status as well Objective - Vital Signs Vital signs: Vital Signs Temp 97.4 F L 06/24/17 08:00 Pulse 64 06/24/17 08:00 Resp 16 06/24/17 08:00 BP 92/54 06/24/17 08:00 Pulse Ox 97 06/24/17 08:00 Intake & Output 06/23/17 06/24/17 06/24/17 18:59 06:59 18:59 Intake Total 540 Output Total 100 150 Balance 440 -150 Weight 87.9 kg Intake: Oral 540 Output: Urine 100 150 Other: Voiding Method Urinal Urinal # Voids 1 1 - Exam General: The patient is awake and alert, in no distress Eye: there is normal conjunctiva bilaterally. Neck: The neck is supple, there is no JVD. No bruit and no lymphadenopathy, neck veins however prominent Cardiovascular: Normal S1-S2, no S3-S4, no murmurs. Respiratory: Lungs with bibasilar crackles, slightly decreased air entry on the left base is present with some dullness to percussion appears to have improved compared to yesterday Gastrointestinal: Abdomen is soft, nontender Musculoskeletal: There is trace edema at pretibial area Neurological:. Speech is normal. Coordination intact good bilateral strength and cranial last 2-12 are within normal limit. Neuro exam otherwise normal Skin: Skin is warm and dry - Labs CBC & Chem 7: 06/24/17 05:43 06/24/17 05:43 Labs: Abnormal Lab Results - Last 24 Hours (Table) 06/23/17 06/23/17 06/24/17 Range/Units 16:30 21:00 05:43 Hgb 12.7 L (13.0-17.5) gm/dL MCV 78.7 L (80.0-100.0) fL RDW 16.9 H (11.5-15.5) % BUN (9-20) mg/dL Creatinine (0.66-1.25) mg/dL POC Glucose (mg/dL) 109 H 127 H (75-99) mg/dL AST (17-59) U/L Total Protein (6.3-8.2) g/dL Albumin (3.5-5.0) g/dL 06/24/17 Range/Units 05:43 Hgb (13.0-17.5) gm/dL MCV (80.0-100.0) fL RDW (11.5-15.5) % BUN 43 H (9-20) mg/dL Creatinine 2.19 H (0.66-1.25) mg/dL POC Glucose (mg/dL) (75-99) mg/dL AST 15 L (17-59) U/L Total Protein 5.7 L (6.3-8.2) g/dL Albumin 3.3 L (3.5-5.0) g/dL Assessment and Plan Plan: 1. Acute systolic heart failure exacerbation: Last echocardiogram approximately a month ago in the office showing EF of 20% 2. lobulated left pleural effusion related to congestive heart failure no pleural-based neoplasm noted I have reviewed the computed tomography scan of the chest without contrast, no further workup is recommended except to monitor and observe at this point of time 3. Coronary artery disease with history of CABG many years ago 4. Essential hypertension: Blood pressure well-controlled 5. Next hyperlipidemia, diet-controlled 6. Underlying hypothyroidism on levothyroxin 7. Stage IIIB chronic kidney disease 8. History of chronic recurrent left pleural effusion with history of lymphoma requiring frequent thoracentesis on the left side, lately patient has been in remission in that regard Time with Patient: Greater than 30
--- NOTE | 2017-06-24 11:13 | P.PN ---
Subjective Principal diagnosis: Congestive heart failure This is a pleasant 82-year-old gentleman who follows with Dr. smith in the office. He has a known history of ischemic cardio myopathy with prior AICD implantation, coronary artery disease with prior bypass surgery, paroxysmal atrial fibrillation, COPD, hypertension, diabetes, hyperlipidemia, acute on chronic renal failure, documented ejection fraction of less than 20%. He was admitted to the hospital with congestive heart failure. Patient was also started yesterday on and chest. He today is down 1 kg. Hemoglobin 12.7, platelet count 270. Potassium 4.0, BUN 23, creatinine 2.1. Magnesium level 2.0. blood pressure this morning 92/50 heart rate in the 60s. Patient seen and examined this morning, denies any dizziness or lightheadedness, states that his breathing is somewhat improved today. Objective - Vital Signs Vital signs: Vital Signs Temp 97.4 F L 06/24/17 08:00 Pulse 64 06/24/17 08:00 Resp 16 06/24/17 08:00 BP 92/54 06/24/17 08:00 Pulse Ox 97 06/24/17 08:00 Intake & Output 06/23/17 06/24/17 06/24/17 18:59 06:59 18:59 Intake Total 540 Output Total 100 150 Balance 440 -150 Weight 87.9 kg Intake: Oral 540 Output: Urine 100 150 Other: Voiding Method Urinal Urinal # Voids 1 1 - Exam PHYSICAL EXAMINATION: HEENT: Head is atraumatic, normocephalic. Pupils equal, round. Neck is supple. There is no elevated jugular venous pressure. HEART EXAMINATION: Heart S1 and S2 systolic murmur is heard. CHEST EXAMINATION: His reveal diminished air entry to bilateral bases. ABDOMEN: Soft, nontender. Bowel sounds are heard. No organomegaly noted. EXTREMITIES: 2+ peripheral pulses with trace to 1+ evidence of peripheral edema and no calf tenderness noted. NEUROLOGIC patient is awake, alert and oriented -3. . - Labs CBC & Chem 7: 06/24/17 05:43 06/24/17 05:43 Labs: Abnormal Lab Results - Last 24 Hours (Table) 06/23/17 06/23/17 06/24/17 Range/Units 16:30 21:00 05:43 Hgb 12.7 L (13.0-17.5) gm/dL MCV 78.7 L (80.0-100.0) fL RDW 16.9 H (11.5-15.5) % BUN (9-20) mg/dL Creatinine (0.66-1.25) mg/dL POC Glucose (mg/dL) 109 H 127 H (75-99) mg/dL AST (17-59) U/L Total Protein (6.3-8.2) g/dL Albumin (3.5-5.0) g/dL 06/24/17 Range/Units 05:43 Hgb (13.0-17.5) gm/dL MCV (80.0-100.0) fL RDW (11.5-15.5) % BUN 43 H (9-20) mg/dL Creatinine 2.19 H (0.66-1.25) mg/dL POC Glucose (mg/dL) (75-99) mg/dL AST 15 L (17-59) U/L Total Protein 5.7 L (6.3-8.2) g/dL Albumin 3.3 L (3.5-5.0) g/dL Assessment and Plan (1) Systolic CHF, acute on chronic Status: Acute (2) Ischemic cardiomyopathy Status: Acute (3) AICD (automatic cardioverter/defibrillator) present Status: Acute (4) HTN (hypertension) Status: Acute (5) Acute on chronic kidney failure Status: Acute (6) Diabetes Status: Acute (7) History of coronary artery bypass graft Status: Acute (8) Renal insufficiency Status: Acute Plan: From cardiology's perspective, we'll recommend to continue current dose of IV Lasix. Check lytes BUN and creatinine in the morning and continue to monitor intake and output along with daily weights. DNP note has been reviewed, I agree with a documented findings and plan of care. Patient was seen and examined.
--- NOTE | 2017-06-24 11:35 | P.PN ---
Subjective Patient is feeling better today. He is diuresing well. No events overnight Objective - Vital Signs Vital signs: Vital Signs Temp 97.4 F L 06/24/17 08:00 Pulse 64 06/24/17 08:00 Resp 16 06/24/17 08:00 BP 92/54 06/24/17 08:00 Pulse Ox 97 06/24/17 08:00 Intake & Output 06/23/17 06/24/17 06/24/17 18:59 06:59 18:59 Intake Total 540 Output Total 100 150 Balance 440 -150 Weight 87.9 kg Intake: Oral 540 Output: Urine 100 150 Other: Voiding Method Urinal Urinal # Voids 1 1 - Exam General: The patient is awake and alert, in no distress Eye: there is normal conjunctiva bilaterally. Neck: The neck is supple, there is no JVD. Cardiovascular: Normal S1-S2, no S3-S4, no murmurs. Respiratory: Lungs clear to auscultation bilaterally Gastrointestinal: Abdomen is soft, nontender Musculoskeletal: There is +1 pedal edema. Skin: Skin is warm and dry - Labs CBC & Chem 7: 06/24/17 05:43 06/24/17 05:43 Labs: Abnormal Lab Results - Last 24 Hours (Table) 06/23/17 06/23/17 06/24/17 Range/Units 16:30 21:00 05:43 Hgb 12.7 L (13.0-17.5) gm/dL MCV 78.7 L (80.0-100.0) fL RDW 16.9 H (11.5-15.5) % BUN (9-20) mg/dL Creatinine (0.66-1.25) mg/dL POC Glucose (mg/dL) 109 H 127 H (75-99) mg/dL AST (17-59) U/L Total Protein (6.3-8.2) g/dL Albumin (3.5-5.0) g/dL 06/24/17 Range/Units 05:43 Hgb (13.0-17.5) gm/dL MCV (80.0-100.0) fL RDW (11.5-15.5) % BUN 43 H (9-20) mg/dL Creatinine 2.19 H (0.66-1.25) mg/dL POC Glucose (mg/dL) (75-99) mg/dL AST 15 L (17-59) U/L Total Protein 5.7 L (6.3-8.2) g/dL Albumin 3.3 L (3.5-5.0) g/dL Assessment and Plan Plan: 1. Acute systolic heart failure exacerbation: Last echocardiogram approximately a month ago in the office showing EF of 20% 2. Underlying ischemic cardiomyopathy 3. Coronary artery disease with history of CABG many years ago 4. Essential hypertension: Blood pressure well-controlled 5. Mixed hyperlipidemia, diet-controlled 6. Underlying hypothyroidism on levothyroxin 7. Stage IIIB chronic kidney disease 8. Bilateral pleural effusion with evidence of fluid overload Today, I reviewed his medication list the lab work results. Continue diuresis with IV Lasix. Monitor kidney function and electrolytes closely. Cardiology and pulmonology following closely. Repeat lab work in the morning. Patient was started on Entresto he is tolerating well,
[2017-06-24 11:46] LABS: Glucose,Whole Blood 130 mg/dL (75-99)
[2017-06-24] MEDS: FUROSEMIDE 10 MG/ML 4 ML VIAL IV SCH ×2 (12:01→20:34)
[2017-06-24 16:36] LABS: Glucose,Whole Blood 105 mg/dL (75-99)
[2017-06-24 21:28] LABS: Glucose,Whole Blood 172 mg/dL (75-99)
[2017-06-25 06:12] LABS: Anisocytosis Slight; Basophils # (A) 0.1 k/uL (0-0.2); Basophils % (A) 1 %; CH 25.3; CHCM 32.1; Eosinophils # (A) 0.4 k/uL (0-0.7); Eosinophils % (A) 5 %; HCT 42.4 % (39.0-53.0); HDW 3.16; HGB 13.2 gm/dL (13.0-17.5); Hypochromasia Slight; Luc # (Auto) 0.14; Luc % (Auto) 2; Lymphocytes # (A) 1.6 k/uL (1.0-4.8); Lymphocytes % (A) 20 %; MCH 24.6 pg (25.0-35.0); MCV 79.1 fL (80.0-100.0); Mean Platelet Volume 7.6; Microcytosis Slight; Monocytes # (A) 0.6 k/uL (0-1.0); Monocytes % (A) 7 %; Neutrophils # (A) 5.3 k/uL (1.3-7.7); Neutrophils % (A) 65 %; RBC 5.36 m/uL (4.30-5.90); WBC 8.1 k/uL (3.8-10.6); WBC (Perox) 8.73
[2017-06-25] MEDS: glipiZIDE 5 MG TAB PO SCH ×2 (06:19→17:53)
[2017-06-25] MEDS: CARVEDILOL 1.563 MG TAB PO SCH ×2 (06:19→17:53)
[2017-06-25] MEDS: LEVOTHYROXINE 100 MCG TAB PO SCH (06:19)
[2017-06-25 06:25] LABS: Calcium 8.8 mg/dL (8.4-10.2); Phosphorous 3.4 mg/dL (2.5-4.5); Potassium 3.6 mmol/L (3.5-5.1); Total Bilirubin 0.6 mg/dL (0.2-1.3); Total Protein 5.7 g/dL (6.3-8.2)
[2017-06-25 06:38] LABS: Glucose,Whole Blood 97 mg/dL (75-99)
[2017-06-25] MEDS: HEPARIN SODIUM,PORCINE 5,000 UNIT/ML 1 ML VIAL SQ SCH ×2 (07:51→20:01)
[2017-06-25] MEDS: AMIODARONE 200 MG TAB PO SCH (07:51)
[2017-06-25] MEDS: CHOLECALCIFEROL 1,000 UNIT TAB PO SCH (07:51)
[2017-06-25] MEDS: FUROSEMIDE 10 MG/ML 4 ML VIAL IV SCH (07:51)
[2017-06-25] MEDS: ALLOPURINOL 100 MG TAB PO SCH (07:51)
[2017-06-25] MEDS: SACUBITRIL/VALSARTAN 24 MG-26 MG TABLET PO SCH ×2 (07:51→20:01)
[2017-06-25] MEDS: ASPIRIN 81 MG PO SCH (07:51)
--- NOTE | 2017-06-25 11:13 | P.PN ---
Subjective Patient is feeling better today. He is diuresing well. No events overnight Objective - Vital Signs Vital signs: Vital Signs Temp 97.5 F L 06/25/17 08:00 Pulse 68 06/25/17 08:00 Resp 18 06/25/17 08:00 BP 102/55 06/25/17 08:00 Pulse Ox 94 L 06/25/17 08:00 Intake & Output 06/24/17 06/25/17 06/25/17 18:59 06:59 18:59 Intake Total 360 Output Total 425 Balance 360 -425 Weight 88.3 kg Intake: Oral 360 Output: Urine 425 Other: Voiding Method Urinal # Voids 1 - Exam General: The patient is awake and alert, in no distress Eye: there is normal conjunctiva bilaterally. Neck: The neck is supple, there is no JVD. Cardiovascular: Normal S1-S2, no S3-S4, no murmurs. Respiratory: Lungs clear to auscultation bilaterally Gastrointestinal: Abdomen is soft, nontender Musculoskeletal: There is +1 pedal edema. Skin: Skin is warm and dry - Labs CBC & Chem 7: 06/25/17 05:53 06/25/17 05:53 Labs: Abnormal Lab Results - Last 24 Hours (Table) 06/24/17 06/24/17 06/24/17 Range/Units 11:44 16:32 21:20 MCV (80.0-100.0) fL MCH (25.0-35.0) pg RDW (11.5-15.5) % BUN (9-20) mg/dL Creatinine (0.66-1.25) mg/dL POC Glucose (mg/dL) 130 H 105 H 172 H (75-99) mg/dL AST (17-59) U/L Total Protein (6.3-8.2) g/dL Albumin (3.5-5.0) g/dL 06/25/17 06/25/17 Range/Units 05:53 05:53 MCV 79.1 L (80.0-100.0) fL MCH 24.6 L (25.0-35.0) pg RDW 17.0 H (11.5-15.5) % BUN 47 H (9-20) mg/dL Creatinine 2.20 H (0.66-1.25) mg/dL POC Glucose (mg/dL) (75-99) mg/dL AST 13 L (17-59) U/L Total Protein 5.7 L (6.3-8.2) g/dL Albumin 3.3 L (3.5-5.0) g/dL Assessment and Plan Plan: 1. Acute systolic heart failure exacerbation: Last echocardiogram approximately a month ago in the office showing EF of 20% 2. Underlying ischemic cardiomyopathy 3. Coronary artery disease with history of CABG many years ago 4. Essential hypertension: Blood pressure well-controlled 5. Mixed hyperlipidemia, diet-controlled 6. Underlying hypothyroidism on levothyroxin 7. Stage IIIB chronic kidney disease 8. Bilateral pleural effusion with evidence of fluid overload Today, I reviewed his medication list the lab work results. Continue diuresis with IV Lasix. Monitor kidney function and electrolytes closely. Cardiology and pulmonology following closely. Repeat lab work in the morning. Patient was started on Entresto he is tolerating well, we will make sure that is covered by his insurance tomorrow. Plan to discharge home tomorrow.
[2017-06-25 11:27] LABS: Glucose,Whole Blood 213 mg/dL (75-99)
--- NOTE | 2017-06-25 12:06 | P.PN ---
Subjective Principal diagnosis: This is a pleasant 82-year-old gentleman who follows with Dr. smith in the office. He has a known history of ischemic cardio myopathy with prior AICD implantation, coronary artery disease with prior bypass surgery, paroxysmal atrial fibrillation, COPD, hypertension, diabetes, hyperlipidemia, acute on chronic renal failure, documented ejection fraction of less than 20%. He was admitted to the hospital with congestive heart failure. On follow-up with the patient today, he is feeling better. The shortness of breath has improved. The creatinine is worse today and I will decrease the dose of Lasix to 40 mg IVP daily and continue monitor the kidney function. Objective - Vital Signs Vital signs: Vital Signs Temp 97.6 F 06/25/17 11:57 Pulse 81 06/25/17 11:57 Resp 18 06/25/17 11:57 BP 112/58 06/25/17 11:57 Pulse Ox 98 06/25/17 11:57 Intake & Output 06/24/17 06/25/17 06/25/17 18:59 06:59 18:59 Intake Total 360 Output Total 425 Balance 360 -425 Weight 88.3 kg Intake: Oral 360 Output: Urine 425 Other: Voiding Method Urinal # Voids 1 - Constitutional General appearance: Present: no acute distress - Respiratory Respiratory: bilateral: CTA - Cardiovascular Heart sounds: normal: S1, S2 - Labs CBC & Chem 7: 06/25/17 05:53 06/25/17 05:53 Labs: Abnormal Lab Results - Last 24 Hours (Table) 06/24/17 06/24/17 06/25/17 Range/Units 16:32 21:20 05:53 MCV 79.1 L (80.0-100.0) fL MCH 24.6 L (25.0-35.0) pg RDW 17.0 H (11.5-15.5) % BUN (9-20) mg/dL Creatinine (0.66-1.25) mg/dL POC Glucose (mg/dL) 105 H 172 H (75-99) mg/dL AST (17-59) U/L Total Protein (6.3-8.2) g/dL Albumin (3.5-5.0) g/dL 06/25/17 06/25/17 Range/Units 05:53 11:20 MCV (80.0-100.0) fL MCH (25.0-35.0) pg RDW (11.5-15.5) % BUN 47 H (9-20) mg/dL Creatinine 2.20 H (0.66-1.25) mg/dL POC Glucose (mg/dL) 213 H (75-99) mg/dL AST 13 L (17-59) U/L Total Protein 5.7 L (6.3-8.2) g/dL Albumin 3.3 L (3.5-5.0) g/dL Assessment and Plan Plan: This is a pleasant 82-year-old gentleman who was admitted to the hospital was congestive heart failure secondary to systolic dysfunction. I am going to decrease the dose of Lasix to 40 mg IVP daily. Clinically the patient is doing better. Probably change the Lasix to by mouth tomorrow and possible discharge home tomorrow after tomorrow.
[2017-06-25 16:50] LABS: Glucose,Whole Blood 99 mg/dL (75-99)
[2017-06-26 05:57] LABS: Glucose,Whole Blood 86 mg/dL (75-99)
[2017-06-26] MEDS: LEVOTHYROXINE 100 MCG TAB PO SCH (05:59)
[2017-06-26 06:11] LABS: Basophils # (A) 0.1 k/uL (0-0.2); Basophils % (A) 1 %; CH 24.4; CHCM 30.9; Eosinophils # (A) 0.4 k/uL (0-0.7); Eosinophils % (A) 6 %; HCT 40.8 % (39.0-53.0); HDW 3.12; HGB 12.8 gm/dL (13.0-17.5); Hypochromasia Moderate; Luc # (Auto) 0.12; Luc % (Auto) 2; Lymphocytes # (A) 1.6 k/uL (1.0-4.8); Lymphocytes % (A) 21 %; MCH 24.8 pg (25.0-35.0); MCHC 31.3 g/dL (31.0-37.0); MCV 79.2 fL (80.0-100.0); Mean Platelet Volume 7.1; Monocytes # (A) 0.5 k/uL (0-1.0); Monocytes % (A) 6 %; Neutrophils # (A) 4.9 k/uL (1.3-7.7); Neutrophils % (A) 65 %; RBC 5.14 m/uL (4.30-5.90); RDW 15.9 % (11.5-15.5); WBC 7.6 k/uL (3.8-10.6); WBC (Perox) 7.85
[2017-06-26 06:22] LABS: Calcium 8.7 mg/dL (8.4-10.2); Magnesium 2.1 mg/dL (1.6-2.3); Phosphorous 3.5 mg/dL (2.5-4.5); Potassium 3.8 mmol/L (3.5-5.1); Total Bilirubin 0.5 mg/dL (0.2-1.3); Total Protein 5.6 g/dL (6.3-8.2)
[2017-06-26] MEDS: glipiZIDE 5 MG TAB PO SCH (06:52)
[2017-06-26] MEDS: CARVEDILOL 1.563 MG TAB PO SCH (06:52)
[2017-06-26] MEDS: ALLOPURINOL 100 MG TAB PO SCH (08:04)
[2017-06-26] MEDS: HEPARIN SODIUM,PORCINE 5,000 UNIT/ML 1 ML VIAL SQ SCH (08:05)
[2017-06-26] MEDS: SACUBITRIL/VALSARTAN 24 MG-26 MG TABLET PO SCH (08:05)
[2017-06-26] MEDS: AMIODARONE 200 MG TAB PO SCH (08:05)
[2017-06-26] MEDS: CHOLECALCIFEROL 1,000 UNIT TAB PO SCH (08:05)
[2017-06-26] MEDS: ASPIRIN 81 MG PO SCH (08:05)
[2017-06-26] MEDS ORDERED: FUROSEMIDE 10 MG/ML 4 ML VIAL IV SCH (09:00)
[2017-06-26 09:16] VITALS: BP 106/56; PULSE 84; RESP 18; TEMP 97
--- NOTE | 2017-06-26 10:54 | P.PN ---
Subjective Principal diagnosis: Congestive heart failure This is a pleasant 82-year-old gentleman who follows with Dr. carrera in the office. He has a known history of ischemic cardio myopathy with prior AICD implantation, coronary artery disease with prior bypass surgery, paroxysmal atrial fibrillation, COPD, hypertension, diabetes, hyperlipidemia, acute on chronic renal failure, documented ejection fraction of less than 20%. He was admitted to the hospital with congestive heart failure. Patient was also started yesterday on and chest. He today is down 1 kg. Hemoglobin 12.7, platelet count 270. Potassium 4.0, BUN 23, creatinine 2.1. Magnesium level 2.0. blood pressure this morning 92/50 heart rate in the 60s. Patient seen and examined this morning, denies any dizziness or lightheadedness, states that his breathing is somewhat improved today. 06/26/2017 Patient seen and examined this morning, feeling much better overall. Good urine output, weight unchanged from yesterday. Potassium 3.8, creatinine 2.1 today. We will discontinue the IV Lasix, increase patient's home dose of Lasix from 40 mg daily to 40 by mouth twice a day. He may be able to be discharged home from cardiology's perspective to follow-up with Dr. Carrera in the office post discharge. Objective - Vital Signs Vital signs: Vital Signs Temp 97 F L 06/26/17 08:00 Pulse 84 06/26/17 08:00 Resp 18 06/26/17 08:00 BP 106/56 06/26/17 08:00 Pulse Ox 96 06/26/17 08:00 Intake & Output 06/25/17 06/26/17 06/26/17 18:59 06:59 18:59 Intake Total 240 250 240 Output Total 250 1100 Balance -10 -850 240 Weight 88.7 kg Intake: Oral 240 250 240 Output: Urine 250 1100 Other: Voiding Method Urinal Urinal # Voids 1 1 - Exam PHYSICAL EXAMINATION: HEENT: Head is atraumatic, normocephalic. Pupils equal, round. Neck is supple. There is no elevated jugular venous pressure. HEART EXAMINATION: Heart S1 and S2 systolic murmur is heard. CHEST EXAMINATION: Lungs are clear to auscultation. ABDOMEN: Soft, nontender. Bowel sounds are heard. No organomegaly noted. EXTREMITIES: 2+ peripheral pulses with trace evidence of peripheral edema and no calf tenderness noted. NEUROLOGIC patient is awake, alert and oriented -3. . - Labs CBC & Chem 7: 06/26/17 05:48 06/26/17 05:48 Labs: Abnormal Lab Results - Last 24 Hours (Table) 06/25/17 06/26/17 06/26/17 Range/Units 11:20 05:48 05:48 Hgb 12.8 L (13.0-17.5) gm/dL MCV 79.2 L (80.0-100.0) fL MCH 24.8 L (25.0-35.0) pg RDW 15.9 H (11.5-15.5) % Chloride 108 H (98-107) mmol/L BUN 45 H (9-20) mg/dL Creatinine 2.16 H (0.66-1.25) mg/dL POC Glucose (mg/dL) 213 H (75-99) mg/dL Total Protein 5.6 L (6.3-8.2) g/dL Albumin 3.2 L (3.5-5.0) g/dL Assessment and Plan (1) Systolic CHF, acute on chronic Status: Acute (2) Ischemic cardiomyopathy Status: Acute (3) AICD (automatic cardioverter/defibrillator) present Status: Acute (4) HTN (hypertension) Status: Acute (5) Acute on chronic kidney failure Status: Acute (6) Diabetes Status: Acute (7) History of coronary artery bypass graft Status: Acute (8) Renal insufficiency Status: Acute Plan: From cardiology's perspective, we'll discontinue the IV Lasix, and initiate the patient on Lasix 40 mg one tablet by mouth twice a day. He may be able to be discharged home from cardiology's perspective. We will make him a follow-up appointment to see Dr. Schafer in the office post discharge. DNP note has been reviewed, I agree with a documented findings and plan of care. Patient was seen and examined.
--- NOTE | 2017-06-26 11:14 | P.PN ---
Subjective Principal diagnosis: Acute on chronic hypoxic respiratory failure, acute exacerbation of CHF related to acute on chronic systolic heart failure, left-sided pleural effusion, history of B-cell lymphoma, history of chronic recurrent pleural effusion with multiple thoracentesis on the left side 06/25/17, patient seen and evaluated examined during the rounds doing well in terms of respiration off of oxygen has been ambulating shortness of breath and cough has improved significantly patient is a being diuresed tolerating diuresing very well no other [place] complaining of present besides some component of dyspnea on exertion, his labs from today has been reviewed mild degree of the microcytosis is seen otherwise fairly stable hemoglobin BUN/ creatinine is 47 and 2.2, overall is noted to be stable except a mild shift upwards 06/24/2017, patient seen and evaluated examined on the selective care, patient is still short of breath on activity and exertion has severity however has improved swelling in the lower extremity has improved, patient is status post computed tomography scan of the chest which I have reviewed dated 06/23/2017. The computed tomography scan showed extensive thickening of the fissures and Septra in the lung, interstitial edema bilaterally is present the small pleural effusion on the left side and some loculated pleural effusion and the major fissure as been noted no obvious pleural based masses seen, borderline left adenopathy in paratracheal area seen which is 1 cm in size 06/23/2017, patient seen and evaluated examined during the rounds he is awake and alert breathing comfortably he is currently on room air breathing fairly well but does get short of breath occasionally he does desire deep breaths, it home however he is on home oxygen while in the hospital he is on oxygen as well. Temporary disconnected himself I have advised him to keep on using the oxygen given his marginal saturation. He denies any cough he's been diuresing fairly well swelling in the lower extremity has been improving along with his respiratory status as well Objective - Vital Signs Vital signs: Vital Signs Temp 97 F L 06/26/17 08:00 Pulse 84 06/26/17 08:00 Resp 18 06/26/17 08:00 BP 106/56 06/26/17 08:00 Pulse Ox 96 06/26/17 08:00 Intake & Output 06/25/17 06/26/17 06/26/17 18:59 06:59 18:59 Intake Total 240 250 240 Output Total 250 1100 Balance -10 850 240 Weight 88.7 kg Intake: Oral 240 250 240 Output: Urine 250 1100 Other: Voiding Method Urinal Urinal # Voids 1 1 - Exam General: The patient is awake and alert, in no distress Eye: there is normal conjunctiva bilaterally. Neck: The neck is supple, there is no JVD. No bruit and no lymphadenopathy, neck veins however prominent Cardiovascular: Normal S1-S2, no S3-S4, no murmurs. Respiratory: Lungs with bibasilar crackles, slightly decreased air entry on the left base is present with some dullness to percussion appears to have improved compared to yesterday Gastrointestinal: Abdomen is soft, nontender Musculoskeletal: There is trace edema at pretibial area Neurological:. Speech is normal. Coordination intact good bilateral strength and cranial last 2-12 are within normal limit. Neuro exam otherwise normal Skin: Skin is warm and dry - Labs CBC & Chem 7: 06/26/17 05:48 06/26/17 05:48 Labs: Abnormal Lab Results - Last 24 Hours (Table) 06/25/17 06/26/17 06/26/17 Range/Units 11:20 05:48 05:48 Hgb 12.8 L (13.0-17.5) gm/dL MCV 79.2 L (80.0-100.0) fL MCH 24.8 L (25.0-35.0) pg RDW 15.9 H (11.5-15.5) % Chloride 108 H (98-107) mmol/L BUN 45 H (9-20) mg/dL Creatinine 2.16 H (0.66-1.25) mg/dL POC Glucose (mg/dL) 213 H (75-99) mg/dL Total Protein 5.6 L (6.3-8.2) g/dL Albumin 3.2 L (3.5-5.0) g/dL Assessment and Plan Plan: 1. Acute systolic heart failure exacerbation: Last echocardiogram approximately a month ago in the office showing EF of 20% 2. lobulated left pleural effusion related to congestive heart failure no pleural-based neoplasm noted I have reviewed the computed tomography scan of the chest without contrast, no further workup is recommended except to monitor and observe at this point of time 3. Acute on chronic renal failure stage 3-4 overall stable with diuresis 4. Coronary artery disease with history of CABG many years ago 5. Next hyperlipidemia, diet-controlled 6. Underlying hypothyroidism on levothyroxin 7. Stage IIIB chronic kidney disease 8. History of chronic recurrent left pleural effusion with history of lymphoma requiring frequent thoracentesis on the left side, lately patient has been in remission in that regard 9. Essential hypertension: Blood pressure well-controlled Time with Patient: Greater than 30
[2017-06-26 11:23] LABS: Glucose,Whole Blood 129 mg/dL (75-99)
--- NOTE | 2017-06-26 11:43 | P.DS ---
Providers Date of admission: 06/22/17 09:23 Expected date of discharge: 06/26/17 Attending physician: Clarita Marcelo Consults: 06/22/17 13:14 Consult Physician Routine Consulting Provider: Silas Barrios Consult Reason/Comments: pleural effusion? Do you want consulting provider notified?: Yes Consult Physician Routine Consulting Provider: Andre Conway Consult Reason/Comments: CHF Do you want consulting provider notified?: Yes Primary care physician: Clarita Dayroyce [facility] Course: Patient was diuresed in the hospital with IV Lasix. He was seen and evaluated by cardiology. His regimen was adjusted. Entresto added to his regimen. He will be discharged home in a stable condition. He will follow-up with me in cardiology as directed. 1. Acute systolic heart failure exacerbation: Last echocardiogram approximately a month ago in the office showing EF of 20% 2. Underlying ischemic cardiomyopathy 3. Coronary artery disease with history of CABG many years ago 4. Essential hypertension: Blood pressure well-controlled 5. Mixed hyperlipidemia, diet-controlled 6. Underlying hypothyroidism on levothyroxin 7. Stage IIIB chronic kidney disease 8. Bilateral pleural effusion with evidence of fluid overload Patient Condition at Discharge: Stable Plan - Discharge Summary New Discharge Prescriptions: New Carvedilol [Coreg] 1.563 mg PO BID-W/MEALS #60 tab Potassium Chloride ER [K-Dur 10] 10 meq PO DAILY #30 tab Sacubitril/Valsartan [Entresto 24 mg-26 mg Tablet] 1 each PO BID #60 tab Continue Aspirin EC [Ecotrin Low Dose] 81 mg PO DAILY Amiodarone [Cordarone] 200 mg PO DAILY Allopurinol [Zyloprim] 200 mg PO DAILY Cholecalciferol [Vitamin D3] 1,000 unit PO DAILY glipiZIDE [Glucotrol] 5 mg PO BID Levothyroxine Sodium [Synthroid] 100 mcg PO DAILY Changed Furosemide [Lasix] 40 mg PO BID #60 Discontinued Metoprolol Tartrate 12.5 mg PO DAILY Discharge Medication List Aspirin EC [Ecotrin Low Dose] 81 mg PO DAILY 01/31/15 [History] Allopurinol [Zyloprim] 200 mg PO DAILY 08/14/15 [History] Amiodarone [Cordarone] 200 mg PO DAILY 08/14/15 [History] Cholecalciferol [Vitamin D3] 1,000 unit PO DAILY 06/22/17 [History] Levothyroxine Sodium [Synthroid] 100 mcg PO DAILY 06/22/17 [History] glipiZIDE [Glucotrol] 5 mg PO BID 06/22/17 [History] Carvedilol [Coreg] 1.563 mg PO BID-W/MEALS #60 tab 06/26/17 [Rx] Furosemide [Lasix] 40 mg PO BID #60 06/26/17 [Rx] Potassium Chloride ER [K-Dur 10] 10 meq PO DAILY #30 tab 06/26/17 [Rx] Sacubitril/Valsartan [Entresto 24 mg-26 mg Tablet] 1 each PO BID #60 tab [Rx] Follow up Appointment(s)/Referral(s): Silas Barrios MD [STAFF PHYSICIAN] - 1 Week Clarita Marcelo MD [Primary Care Provider] - 1 Week Discharge Disposition: HOME SELF-CARE
== END 2017-06-26 13:14 | disposition home or self-care (01) | DRG 291 ==
LOC: EC 07:31 → 6SEL 09:23
PROVIDERS: ADMIT Internal Medicine; ATTEND Internal Medicine
DX: I13.0 Hypertensive heart and chronic kidney disease with heart failure and stage 1 through stage 4 chronic kidney disease, or unspecified chronic kidney disease (principal); I50.23 Acute on chronic systolic (congestive) heart failure; J96.21 Acute and chronic respiratory failure with hypoxia; N17.9 Acute kidney failure, unspecified; E11.22 Type 2 diabetes mellitus with diabetic chronic kidney disease; I48.0 Paroxysmal atrial fibrillation; E03.9 Hypothyroidism, unspecified; E78.2 Mixed hyperlipidemia; I25.10 Atherosclerotic heart disease of native coronary artery without angina pectoris; I25.2 Old myocardial infarction; I25.5 Ischemic cardiomyopathy; J44.9 Chronic obstructive pulmonary disease, unspecified; N18.3 Chronic kidney disease, stage 3 (moderate); Z99.81 Dependence on supplemental oxygen; Z95.810 Presence of automatic (implantable) cardiac defibrillator; Z79.82 Long term (current) use of aspirin; Z79.899 Other long term (current) drug therapy; Z79.4 Long term (current) use of insulin; Z85.72 Personal history of non-Hodgkin lymphomas; Z95.1 Presence of aortocoronary bypass graft; Z87.891 Personal history of nicotine dependence; Z82.49 Family history of ischemic heart disease and other diseases of the circulatory system
CPT/HCPCS: 36415; 71010; 71020; 71250; 80053; 82550; 82553; 83735; 83880; 84100; 84443; 84484; 85025; 85610; 85730; 93005; 96374; 99285

== ENCOUNTER 2018-03-13 08:08 | Day surgery (SDC) | payer MEDICARE ==
[2018-03-09 09:49] VITALS: BMI 27.2
[~2018-03-13 08:08] MED LIST: LACTATED RINGERS 1,000 ML IV SCH
[2018-03-13 08:40] VITALS: TEMP 98.3
[2018-03-13] MEDS ORDERED: LIDOCAINE 1% 20 ML VIAL (10MG/ML) FOR IV START INTRADERMA ONE (08:50)
[2018-03-13 08:53] LABS: Glucose,Whole Blood 91 mg/dL (75-99)
[2018-03-13] MEDS ORDERED: PROPOFOL 10 MG/ML 20 ML VIAL IV ONE (09:29)
[2018-03-13] MEDS ORDERED: MIDAZOLAM 2 MG/2 ML VIAL ONE (09:29)
--- NOTE | 2018-03-13 09:50 | P.PCN ---
Date of Procedure: 03/13/18 Procedure(s) Performed: Procedure: Esophagogastroduodenoscopy and biopsy. Preoperative diagnosis: Dysphagia. Postoperative diagnosis: 1. Sliding hiatal hernia but no obvious esophagitis or strictures. 2. Mild antral gastritis. 3. Biopsies obtained from the antrum and esophagus. Preparation sedation: Was provided by anesthesia. Brief clinical history: The patient is an 82-year-old male who is scheduled for this evaluation because of progressive difficulties with swallowing solid food. There is no weight loss or any history of obstructive dysphagia and he does not have acid reflux. He indicated that he had a prior evaluation 7 or 8 years ago but he feels that things has gotten worse since. This evaluation is to assess for stricture or other pathology. Procedure: With the patient on his left lateral decubitus position and after informed consent and adequate sedation, I passed the Olympus-GIF 160 video upper endoscope through the cricopharyngeus down the esophagus. GE junction was around 41-42 cm from the incisors and there was no evidence of esophagitis or any obvious strictures or restriction to the advancement of the endoscope. No Mishra's esophagus. There was a small 1-2 cm sliding hiatal hernia then the endoscope was advanced into the stomach which was insufflated with air and inspected in detail including the retroflex view in the cardia. There was some mottling and erythema in the antrum but no ulcers or erosions. Pyloric channel , duodenal bulb, post bulbar area and descending duodenum appeared within normal limits. I obtained biopsies from the antrum and esophagus before the endoscope was withdrawn but there was no indication for dilation. The patient tolerated the procedure well. Plan: The patient was reassured. I suspect we are dealing with a motility issue. Further studies of his esophageal motility can be considered especially if his symptoms get worse or if there is nutritional compromise. Will await biopsy results and make further recommendations if applicable. He will follow up with you as planned.
[2018-03-13 10:12] VITALS: BP 109/56; PULSE 59; RESP 16
== END 2018-03-13 10:56 | disposition home or self-care (01) ==
LOC: ORWHC2ENDO 08:08
DX: K29.50 Unspecified chronic gastritis without bleeding (principal); K44.9 Diaphragmatic hernia without obstruction or gangrene; R13.10 Dysphagia, unspecified; I25.10 Atherosclerotic heart disease of native coronary artery without angina pectoris; I11.0 Hypertensive heart disease with heart failure; I50.9 Heart failure, unspecified; I48.91 Unspecified atrial fibrillation; E11.9 Type 2 diabetes mellitus without complications; C83.10 Mantle cell lymphoma, unspecified site; Z95.1 Presence of aortocoronary bypass graft; Z95.810 Presence of automatic (implantable) cardiac defibrillator; I25.2 Old myocardial infarction; E07.9 Disorder of thyroid, unspecified; N28.9 Disorder of kidney and ureter, unspecified; Z79.84 Long term (current) use of oral hypoglycemic drugs; Z79.82 Long term (current) use of aspirin; Z79.890 Hormone replacement therapy; Z79.899 Other long term (current) drug therapy
CPT/HCPCS: 88305; 43239; J2250; J2704

== ENCOUNTER 2018-05-26 23:53 | Inpatient (IN) | payer MEDICARE ==
--- NOTE | 2018-05-27 00:35 | ED ---
General Adult HPI - General Chief complaint: Shortness of Breath Stated complaint: SERGIO Time Seen by Provider: 05/27/18 00:01 Source: patient, family, RN notes reviewed, old records reviewed Mode of arrival: wheelchair Limitations: no limitations - History of Present Illness Initial comments: 82-year-old male presenting with worsening dyspnea. Patient states his symptoms have been progressive over the past several days however today was significantly worse. He does have history of both COPD and congestive heart failure. He states that his symptoms are worse with lying flat. He has had cough however this is nonproductive. No fever or chills. No chest pain. He has been compliant with his medications. He is currently on 40 mg of Lasix twice daily. No significant dietary changes. He does report lower extremity swelling. - Related Data Home Medications Medication Instructions Recorded Confirmed Aspirin EC [Ecotrin Low Dose] 81 mg PO DAILY 01/31/15 03/13/18 Allopurinol [Zyloprim] 200 mg PO DAILY 08/14/15 03/13/18 Amiodarone [Cordarone] 200 mg PO DAILY 08/14/15 03/13/18 Cholecalciferol [Vitamin D3] 1,000 unit PO DAILY 06/22/17 03/13/18 Levothyroxine Sodium [Synthroid] 100 mcg PO DAILY 06/22/17 03/13/18 glipiZIDE [Glucotrol] 5 mg PO BID 06/22/17 03/13/18 Carvedilol [Coreg] 1.563 mg PO QAM 03/09/18 03/13/18 Previous Rx's Medication Instructions Recorded Furosemide [Lasix] 40 mg PO BID #60 06/26/17 Sacubitril/Valsartan [Entresto 24 1 each PO BID #60 tab 06/26/17 mg-26 mg Tablet] Allergies Allergy/AdvReac Type Severity Reaction Status Date / Time No Known Allergies Allergy Verified 05/27/18 00:15 Review of Systems ROS Statement: Those systems with pertinent positive or pertinent negative responses have been documented in the HPI. ROS Other: All systems not noted in ROS Statement are negative. 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 Past Anesthesia/Blood Transfusion Reactions: No Reported Reaction Type of Cardiac Device: Permanent Pacemaker, AICD Device Placement Date:: 2004 implant/2014 gen change Past Psychological History: No Psychological Hx Reported Smoking Status: Former smoker - Past Family History Mother Family Medical History: No Reported History Additional Family Medical History / Comment(s): Mother was healthy and lived to be 86yrs old. Brother(s) Family Medical History: Cancer Father Family Medical History: Cancer Additional Family Medical History / Comment(s): Father had bone cancer. He also had "heart problems." He at the age of 82 yrs. General Exam Limitations: no limitations General appearance: alert, in no apparent distress Head exam: Present: atraumatic, normocephalic Eye exam: Present: normal appearance, PERRL ENT exam: Present: normal exam Neck exam: Present: normal inspection. Absent: tenderness, meningismus Respiratory exam: Present: rales, decreased breath sounds. Absent: respiratory distress Cardiovascular Exam: Present: regular rate, normal rhythm GI/Abdominal exam: Present: soft. Absent: distended, tenderness, guarding Extremities exam: Present: pedal edema Neurological exam: Present: alert, oriented X3, CN II-XII intact. Absent: motor sensory deficit Psychiatric exam: Present: normal affect, normal mood Skin exam: Present: warm, dry, intact. Absent: cyanosis, diaphoretic Course Vital Signs 05/27/18 05/27/18 00:13 00:15 Temperature 98.9 F Pulse Rate 102 H 96 Respiratory 26 H 20 Rate Blood Pressure 118/63 123/62 O2 Sat by Pulse 84 L 97 Oximetry EKG Findings - EKG Comments: EKG Findings:: EKG: Regular rhythm, likely sinusitis although there is poor baseline artifact, rate of 99, QRS duration 176, QTC 549 overall similar compared to EKG obtained in June 2017. No ST segment elevation. Medical Decision Making - Medical Decision Making 82-year-old male presenting with history concerning for congestive heart failure. Patient does have bilateral Rales on exam. He has pitting edema in the lower extremities. Chest x-ray shows congestive heart failure with pulmonary edema and bilateral pleural effusions. Patient's given IV Lasix in the emergency department. He will be admitted for further treatment of CHF exacerbation with hypoxia. Echo will be obtained. Cardiology placed on consult. Hemoglobin stable 12.9, mild leukocytosis at 11.8. Creatinine 2.3 which appears stable for this patient. BNP is significantly elevated at 17,000. - Lab Data Result diagrams: 05/27/18 00:42 05/27/18 00:42 Lab Results 05/27/18 05/27/18 05/27/18 Range/Units 00:42 00:42 00:42 WBC 11.8 H (3.8-10.6) k/uL RBC 5.04 (4.30-5.90) m/uL Hgb 12.9 L (13.0-17.5) gm/dL Hct 41.1 (39.0-53.0) % MCV 81.5 (80.0-100.0) fL MCH 25.5 (25.0-35.0) pg MCHC 31.3 (31.0-37.0) g/dL RDW 15.9 H (11.5-15.5) % Plt Count 225 (150-450) k/uL Neutrophils % 78 % Lymphocytes % 12 % Monocytes % 6 % Eosinophils % 3 % Basophils % 1 % Neutrophils # 9.2 H (1.3-7.7) k/uL Lymphocytes # 1.4 (1.0-4.8) k/uL Monocytes # 0.7 (0-1.0) k/uL Eosinophils # 0.3 (0-0.7) k/uL Basophils # 0.1 (0-0.2) k/uL PT (9.0-12.0) sec INR (<1.2) APTT (22.0-30.0) sec Sodium 143 (137-145) mmol/L Potassium 4.4 (3.5-5.1) mmol/L Chloride 108 H (98-107) mmol/L Carbon Dioxide 24 (22-30) mmol/L Anion Gap 11 mmol/L BUN 46 H (9-20) mg/dL Creatinine 2.30 H (0.66-1.25) mg/dL Est GFR (CKD-EPI)AfAm 30 (>60 ml/min/1.73 sqM) Est GFR (CKD-EPI)NonAf 26 (>60 ml/min/1.73 sqM) Glucose 123 H (74-99) mg/dL Calcium 8.9 (8.4-10.2) mg/dL Magnesium 1.9 (1.6-2.3) mg/dL Total Bilirubin 1.0 (0.2-1.3) mg/dL AST 19 (17-59) U/L ALT 34 (21-72) U/L Alkaline Phosphatase 124 (38-126) U/L Total Creatine Kinase 34 L (55-170) U/L CK-MB (CK-2) 0.9 (0.0-2.4) ng/mL CK-MB (CK-2) Rel Index 2.6 Troponin I 0.024 (0.000-0.034) ng/mL NT-Pro-B Natriuret Pep pg/mL Total Protein 6.4 (6.3-8.2) g/dL Albumin 3.8 (3.5-5.0) g/dL 05/27/18 05/27/18 Range/Units 00:42 00:42 WBC (3.8-10.6) k/uL RBC (4.30-5.90) m/uL Hgb (13.0-17.5) gm/dL Hct (39.0-53.0) % MCV (80.0-100.0) fL MCH (25.0-35.0) pg MCHC (31.0-37.0) g/dL RDW (11.5-15.5) % Plt Count (150-450) k/uL Neutrophils % % Lymphocytes % % Monocytes % % Eosinophils % % Basophils % % Neutrophils # (1.3-7.7) k/uL Lymphocytes # (1.0-4.8) k/uL Monocytes # (0-1.0) k/uL Eosinophils # (0-0.7) k/uL Basophils # (0-0.2) k/uL PT 12.6 H (9.0-12.0) sec INR 1.3 H (<1.2) APTT 27.0 (22.0-30.0) sec Sodium (137-145) mmol/L Potassium (3.5-5.1) mmol/L Chloride (98-107) mmol/L Carbon Dioxide (22-30) mmol/L Anion Gap mmol/L BUN (9-20) mg/dL Creatinine (0.66-1.25) mg/dL Est GFR (CKD-EPI)AfAm (>60 ml/min/1.73 sqM) Est GFR (CKD-EPI)NonAf (>60 ml/min/1.73 sqM) Glucose (74-99) mg/dL Calcium (8.4-10.2) mg/dL Magnesium (1.6-2.3) mg/dL Total Bilirubin (0.2-1.3) mg/dL AST (17-59) U/L ALT (21-72) U/L Alkaline Phosphatase (38-126) U/L Total Creatine Kinase (55-170) U/L CK-MB (CK-2) (0.0-2.4) ng/mL CK-MB (CK-2) Rel Index Troponin I (0.000-0.034) ng/mL NT-Pro-B Natriuret Pep 40264 pg/mL Total Protein (6.3-8.2) g/dL Albumin (3.5-5.0) g/dL Disposition Clinical Impression: Congestive heart disease, Renal insufficiency Disposition: ADMITTED IP TO THIS [facility] Condition: Stable Is patient prescribed a controlled substance at d/c from ED?: No Referrals: None,Stated [Primary Care Provider] - 1-2 days Decision to Admit Reason: Admit from EC Decision Date: 05/27/18 Decision Time: 01:44
[2018-05-27 00:58] LABS: Basophils # (A) 0.1 k/uL (0-0.2); Basophils % (A) 1 %; Eosinophils # (A) 0.3 k/uL (0-0.7); Eosinophils % (A) 3 %; HCT 41.1 % (39.0-53.0); HGB 12.9 gm/dL (13.0-17.5); Lymphocytes # (A) 1.4 k/uL (1.0-4.8); Lymphocytes % (A) 12 %; MCH 25.5 pg (25.0-35.0); MCHC 31.3 g/dL (31.0-37.0); MCV 81.5 fL (80.0-100.0); Mean Platelet Volume 6.9; Monocytes # (A) 0.7 k/uL (0-1.0); Monocytes % (A) 6 %; Neutrophils # (A) 9.2 k/uL (1.3-7.7); Neutrophils % (A) 78 %; Platelet Count 225 k/uL (150-450); RBC 5.04 m/uL (4.30-5.90); RDW 15.9 % (11.5-15.5); WBC 11.8 k/uL (3.8-10.6)
--- NOTE | 2018-05-27 01:03 | XR ---
EXAMINATION TYPE: XR chest 2V DATE OF EXAM: 05/27/2018 COMPARISON: 06/23/2017 HISTORY: Difficulty breathing TECHNIQUE: Frontal and lateral views of the chest are obtained. FINDINGS: There is pulmonary vascular congestion. There is pulmonary interstitial and alveolar edema . There is some blunting of costophrenic angles. There are chest leads. There is right central venous catheter with tip in the superior vena cava. There is left axillary pacemaker with the lead tips in the right ventricle. IMPRESSION: Congestive heart failure with pleural effusions. This appears the same or slightly worse than last exam.
[2018-05-27 01:04] LABS: Albumin 3.8 g/dL (3.5-5.0); Calcium 8.9 mg/dL (8.4-10.2); INR 1.3 (<1.2); Magnesium 1.9 mg/dL (1.6-2.3); Potassium 4.4 mmol/L (3.5-5.1); Prothrombin Time 12.6 sec (9.0-12.0); Total Protein 6.4 g/dL (6.3-8.2)
[2018-05-27] MEDS ORDERED: FUROSEMIDE 10 MG/ML 4 ML VIAL IV STA (01:15)
[2018-05-27 01:35] LABS: Creatine Kinase MB 0.9 ng/mL (0.0-2.4); Troponin I 0.024 ng/mL (0.000-0.034)
[2018-05-27] MEDS ORDERED: NALOXONE 0.4 MG/ML 1 ML VIAL IV PRN (01:38)
[2018-05-27] MEDS: glipiZIDE 5 MG TAB PO SCH ×2 (08:09→18:46)
[2018-05-27] MEDS: LEVOTHYROXINE 100 MCG TAB PO SCH (08:09)
[2018-05-27] MEDS: ASPIRIN 81 MG PO SCH (08:11)
[2018-05-27] MEDS: SACUBITRIL/VALSARTAN 24 MG-26 MG TABLET PO SCH ×2 (08:11→22:29)
[2018-05-27] MEDS: AMIODARONE 200 MG TAB PO SCH (08:11)
[2018-05-27] MEDS: FUROSEMIDE 10 MG/ML 4 ML VIAL IV SCH ×2 (08:12→21:56)
[2018-05-27] MEDS ORDERED: CARVEDILOL 1.563 MG TAB PO SCH (09:00)
[2018-05-27] MEDS: CARVEDILOL 3.125 MG TAB PO SCH (09:02)
--- NOTE | 2018-05-27 13:30 | P.CRDCN ---
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 He follows with Dr. Carrera regularly. He also had a dual- chamber pacemaker implantation. He came to the hospital complaining of increasing shortness of breath for the last 2 days. Denied any chest pain or palpitations. His pacemaker showed wide-complex rhythm consistent pacemaker rhythm. Underlying rhythm could be sinus tachycardia versus flutter. Patient has history of atrial flutter. Patient is given IV Lasix with some improvement of symptoms. There is mild pedal swelling. 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 Past Anesthesia/Blood Transfusion Reactions: No Reported Reaction Type of Cardiac Device: Permanent Pacemaker, AICD Device Placement Date:: 2004 implant/2014 gen change Past Psychological History: No Psychological Hx Reported Smoking Status: Former smoker - Past Family History Mother Family Medical History: No Reported History Additional Family Medical History / Comment(s): Mother was healthy and lived to be 86yrs old. Brother(s) Family Medical History: Cancer Father Family Medical History: Cancer Additional Family Medical History / Comment(s): Father had bone cancer. He also had "heart problems." He at the age of 82 yrs. Medications and Allergies Home Medications Medication Instructions Recorded Confirmed Type Aspirin EC [Ecotrin Low Dose] 81 mg PO DAILY 01/31/15 05/27/18 History Allopurinol [Zyloprim] 100 mg PO DAILY 08/14/15 05/27/18 History Amiodarone [Cordarone] 200 mg PO DAILY 08/14/15 05/27/18 History Cholecalciferol [Vitamin D3] 1,000 unit PO DAILY 06/22/17 05/27/18 History Levothyroxine Sodium [Synthroid] 100 mcg PO DAILY 06/22/17 05/27/18 History glipiZIDE [Glucotrol] 5 mg PO BID 06/22/17 05/27/18 History Furosemide [Lasix] 40 mg PO BID #60 06/26/17 05/27/18 Rx Carvedilol [Coreg] 3.125 mg PO BID 05/27/18 05/27/18 History Sacubitril/Valsartan [Entresto 24 1 tab PO DAILY 05/27/18 05/27/18 History mg-26 mg Tablet] Allergies Allergy/AdvReac Type Severity Reaction Status Date / Time No Known Allergies Allergy Verified 05/27/18 10:16 Physical Exam Vitals: Vital Signs Temp Pulse Resp BP Pulse Ox 05/27/18 12:00 80 18 117/71 95 05/27/18 10:15 78 18 112/56 95 05/27/18 08:14 82 18 113/66 94 L 05/27/18 07:08 85 18 96/52 95 05/27/18 06:00 98 F 84 20 114/56 97 05/27/18 05:00 92 20 112/56 98 05/27/18 04:00 90 20 118/57 97 05/27/18 03:00 22 05/27/18 02:30 98 F 101 H 20 137/64 97 05/27/18 02:00 92 20 123/60 97 05/27/18 01:15 90 20 127/64 97 05/27/18 00:15 96 20 123/62 97 05/27/18 00:13 98.9 F 102 H 26 H 118/63 84 L Intake and Output 05/26/18 05/27/18 05/27/18 22:59 06:59 14:59 Output Total 400 Balance -400 Output: Urine 400 Other: Weight 81.647 kg GENERAL EXAM: Patient is alert and oriented and Appears to be in moderate distress HEENT: Normocephalic. Normal reaction of pupils, equal size, normal range of extraocular motion. No erythema or exudates in the throat. NECK: No masses, no nuchal rigidity. CHEST: No chest wall deformity. LUNGS: [Diminished breath sounds at bases with scattered rhonchi HEART: Tachycardic ABDOMEN: No hepatosplenomegaly, normal bowel sounds, no guarding or rigidity. SKIN: No rashes CENTRAL NERVOUS SYSTEM: No focal deficits. EXTREMITIES: [Mild edema Results 05/27/18 00:42 05/27/18 00:42 Cardiac Enzymes 05/27/18 05/27/18 Range/Units 00:42 00:42 AST 19 (17-59) U/L CK-MB (CK-2) 0.9 (0.0-2.4) ng/mL Troponin I 0.024 (0.000-0.034) ng/mL Coagulation 05/27/18 Range/Units 00:42 PT 12.6 H (9.0-12.0) sec APTT 27.0 (22.0-30.0) sec CBC 05/27/18 Range/Units 00:42 WBC 11.8 H (3.8-10.6) k/uL RBC 5.04 (4.30-5.90) m/uL Hgb 12.9 L (13.0-17.5) gm/dL Hct 41.1 (39.0-53.0) % Plt Count 225 (150-450) k/uL Comprehensive Metabolic Panel 05/27/18 Range/Units 00:42 Sodium 143 (137-145) mmol/L Potassium 4.4 (3.5-5.1) mmol/L Chloride 108 H (98-107) mmol/L Carbon Dioxide 24 (22-30) mmol/L BUN 46 H (9-20) mg/dL Creatinine 2.30 H (0.66-1.25) mg/dL Glucose 123 H (74-99) mg/dL Calcium 8.9 (8.4-10.2) mg/dL AST 19 (17-59) U/L ALT 34 (21-72) U/L Alkaline Phosphatase 124 (38-126) U/L Total Protein 6.4 (6.3-8.2) g/dL Albumin 3.8 (3.5-5.0) g/dL Current Medications Generic Name Dose Route Start Last Admin Trade Name Freq PRN Reason Stop Dose Admin Amiodarone HCl 200 mg 05/27/18 09:00 05/27/18 08:11 Cordarone PO 200 mg DAILY MAME Administration Aspirin 81 mg 05/27/18 09:00 05/27/18 08:11 Aspirin PO 81 mg DAILY MAME Administration Carvedilol 1.5625 mg 05/27/18 09:00 05/27/18 09:02 Coreg PO 1.5625 mg QAM MAME Administration Furosemide 40 mg 05/27/18 09:00 05/27/18 08:12 Lasix IV 40 mg Q12HR MAME Administration Glipizide 5 mg 05/27/18 07:30 05/27/18 08:09 Glucotrol PO 5 mg BID-W/MEALS MAME Administration Levothyroxine Sodium 100 mcg 05/27/18 06:30 05/27/18 08:09 Synthroid PO 100 mcg 0630 MAME Administration Naloxone HCl 0.2 mg 05/27/18 01:38 Narcan IV Q2M PRN Opioid Reversal Sacubitril/Valsartan 1 each 05/27/18 09:00 05/27/18 08:11 Entresto 24 Mg-26 Mg Tablet PO 1 each BID MAME Administration Intake and Output 05/26/18 05/27/18 05/27/18 22:59 06:59 14:59 Output Total 400 Balance -400 Output: Urine 400 Other: Weight 81.647 kg 05/27/18 00:42 05/27/18 00:42 EKG Interpretations (text) Pacemaker rhythm Assessment and Plan (1) Chronic renal failure Current Visit: Yes Status: Acute Code(s): N18.9 - CHRONIC KIDNEY DISEASE, UNSPECIFIED SNOMED Code(s): 55756264 (2) Renal insufficiency Current Visit: Yes Status: Acute Code(s): N28.9 - DISORDER OF KIDNEY AND URETER, UNSPECIFIED SNOMED Code(s): 878245463 (3) AICD (automatic cardioverter/defibrillator) present Current Visit: No Status: Acute Code(s): Z95.810 - PRESENCE OF AUTOMATIC ( IMPLANTABLE) CARDIAC DEFIBRILLATOR SNOMED Code(s): 832872371 (4) Acute combined systolic and diastolic ACC/AHA stage C congestive heart failure Current Visit: No Status: Acute Code(s): I50.41 - ACUTE COMBINED SYSTOLIC AND DIASTOLIC (CONGESTIVE) HRT FAIL SNOMED Code(s): 251504835488327 (5) Cardiac dysrhythmia Current Visit: No Status: Acute Code(s): I49.9 - CARDIAC ARRHYTHMIA, UNSPECIFIED SNOMED Code(s): 343780501 Plan: Continue with IV diuretics. Continue with amiodarone. The rest of the medication to be continued. May consider renal consult. Prognosis is guarded.
[2018-05-27] MEDS ORDERED: IPRATROPIUM-ALBUTEROL 3 ML NEB INHALATION PRN (14:24)
--- NOTE | 2018-05-27 15:34 | P.HPIM ---
History of Present Illness This is a pleasant 82 years old male with past medical history of heart failure with ejection fraction less than 20% in 2018, atrial fibrillation, coronary artery disease, status post coronary bypass/CABG and AICD. He is status post cardiac Pacemaker too. He Follows with Dr. Johnston in the Outpatient Basis. COPD, Diabetes Mellitus, Hypertension, Liver Disease, Hypothyroidism, Who Presents Because of Progressive Dyspnea of one day duration, pt complains from one day of dry cough , but no phlegm , no chest pain or pain anywhere else, pt at baseline he is mobile using a cane, pt denies to me any h/o COPD before ( he was not giving this diagnosis previously) pt states he is ex-smoker pt is not on oxygen at home. When I see him patient's vitals looks stable, her oxygen saturation is 93% on 2- 3 L nasal cannula. Has mild leukocytosis at 11.8 K, INR is 1.3. His BMP was reviewed. Sodium 143, potassium 4.4, creatinine 2.3 close to his baseline. Troponin 0.024. Chest x-ray shows him slightly worse heart failure and pleural effusion. Patient got 1 dose of Lasix in the emergency room. And his been evaluated by airplane pilot helper Review of Systems CONSTITUTIONAL: No fever, no malaise, no fatigue. HEENT: No recent visual problems or hearing problems. Denied any sore throat. CARDIOVASCULAR: No orthopnea, PND, no palpitations, no syncope. PULMONARY: No shortness of breath, no cough, no hemoptysis. GASTROINTESTINAL: No diarrhea, no nausea, no vomiting, no abdominal pain. Normoactive bowel sounds. NEUROLOGICAL: No headaches, no weakness, no numbness. HEMATOLOGICAL: Denies any bleeding or petechiae. GENITOURINARY: Denies any burning micturition, frequency, or urgency. MUSCULOSKELETAL/RHEUMATOLOGICAL: Denies any joint pain, swelling, or any muscle pain. ENDOCRINE: Denies any polyuria or polydipsia. 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 Past Anesthesia/Blood Transfusion Reactions: No Reported Reaction Type of Cardiac Device: Permanent Pacemaker, AICD Device Placement Date:: 2004 implant/2014 gen change Past Psychological History: No Psychological Hx Reported Smoking Status: Former smoker - Past Family History Mother Family Medical History: No Reported History Additional Family Medical History / Comment(s): Mother was healthy and lived to be 86yrs old. Brother(s) Family Medical History: Cancer Father Family Medical History: Cancer Additional Family Medical History / Comment(s): Father had bone cancer. He also had "heart problems." He at the age of 82 yrs. Medications and Allergies Home Medications Medication Instructions Recorded Confirmed Type Aspirin EC [Ecotrin Low Dose] 81 mg PO DAILY 01/31/15 05/27/18 History Allopurinol [Zyloprim] 100 mg PO DAILY 08/14/15 05/27/18 History Amiodarone [Cordarone] 200 mg PO DAILY 08/14/15 05/27/18 History Cholecalciferol [Vitamin D3] 1,000 unit PO DAILY 06/22/17 05/27/18 History Levothyroxine Sodium [Synthroid] 100 mcg PO DAILY 06/22/17 05/27/18 History glipiZIDE [Glucotrol] 5 mg PO BID 06/22/17 05/27/18 History Furosemide [Lasix] 40 mg PO BID #60 06/26/17 05/27/18 Rx Carvedilol [Coreg] 3.125 mg PO BID 05/27/18 05/27/18 History Sacubitril/Valsartan [Entresto 24 1 tab PO DAILY 05/27/18 05/27/18 History mg-26 mg Tablet] Allergies Allergy/AdvReac Type Severity Reaction Status Date / Time No Known Allergies Allergy Verified 05/27/18 10:16 Physical Exam Vitals: Vital Signs Temp Pulse Resp BP Pulse Ox 05/27/18 14:42 77 08/19/18 14:34 80 05/27/18 14:14 82 18 130/67 93 L 05/27/18 13:00 86 18 92 L 05/27/18 12:00 80 18 117/71 95 05/27/18 10:15 78 18 112/56 95 05/27/18 08:14 82 18 113/66 94 L 05/27/18 07:08 85 18 96/52 95 05/27/18 06:00 98 F 84 20 114/56 97 05/27/18 05:00 92 20 112/56 98 05/27/18 04:00 90 20 118/57 97 05/27/18 03:00 22 05/27/18 02:30 98 F 101 H 20 137/64 97 05/27/18 02:00 92 20 123/60 97 05/27/18 01:15 90 20 127/64 97 05/27/18 00:15 96 20 123/62 97 05/27/18 00:13 98.9 F 102 H 26 H 118/63 84 L Intake and Output 05/26/18 05/27/18 05/27/18 22:59 06:59 14:59 Output Total 780 Balance -780 Output: Urine 780 Other: Weight 81.647 kg GENERAL: The patient is alert and oriented x3, not in any acute distress. Well developed, well nourished. HEENT: Pupils are round and equally reacting to light. EOMI. No scleral icterus. No conjunctival pallor. Normocephalic, atraumatic. No pharyngeal erythema. No thyromegaly. CARDIOVASCULAR: S1 and S2 present. No murmurs, rubs, or gallops. -PULMONARY: Chest is clear to auscultation, BV/L scattered wheezing with basal crackles. ABDOMEN: Soft, nontender, nondistended, normoactive bowel sounds. No palpable organomegaly. MUSCULOSKELETAL: No joint swelling or deformity. EXTREMITIES: No cyanosis, clubbing, or pedal edema. NEUROLOGICAL: Gross neurological examination did not reveal any focal deficits. SKIN: No rashes. Results CBC & Chem 7: 05/27/18 00:42 05/27/18 00:42 Labs: Abnormal Lab Results - Last 24 Hours (Table) 05/27/18 05/27/18 05/27/18 Range/Units 00:42 00:42 00:42 WBC 11.8 H (3.8-10.6) k/uL Hgb 12.9 L (13.0-17.5) gm/dL RDW 15.9 H (11.5-15.5) % Neutrophils # 9.2 H (1.3-7.7) k/uL PT (9.0-12.0) sec INR (<1.2) Chloride 108 H (98-107) mmol/L BUN 46 H (9-20) mg/dL Creatinine 2.30 H (0.66-1.25) mg/dL Glucose 123 H (74-99) mg/dL Total Creatine Kinase 34 L (55-170) U/L 05/27/18 Range/Units 00:42 WBC (3.8-10.6) k/uL Hgb (13.0-17.5) gm/dL RDW (11.5-15.5) % Neutrophils # (1.3-7.7) k/uL PT 12.6 H (9.0-12.0) sec INR 1.3 H (<1.2) Chloride (98-107) mmol/L BUN (9-20) mg/dL Creatinine (0.66-1.25) mg/dL Glucose (74-99) mg/dL Total Creatine Kinase (55-170) U/L Assessment and Plan Assessment: Acute on chronic systolic heart failure, status post and AICD atrial fibrillation, He is status post cardiac Pacemaker too History of coronary artery disease, status post coronary bypass/CABG . . He Follows with Dr. Johnston in the Outpatient Basis. possible COPD, pt denies h/o COPD. less likely Chronic Kid disease Diabetes Mellitus Hypertension h/o Liver Disease Hypothyroidism Plan: This is a pleasant 82 years old male with past medical history of heart failure and COPD who presents with progressive dyspnea. Continue same treatment. Continue with symptomatic treatment. c/w breathing treatment and oxygen treatment. Continue with diuretics and cardiology consultation. Monitor lytes and vitals. DVT and GI prophylaxis. Further recommendation to the clinical course of the patient's. DVT px sc heparin GI Px pepcid PT/OT: pending prognosis is guarded
[2018-05-27 20:36] LABS: Glucose,Whole Blood 53 mg/dL (75-99)
[2018-05-27 20:58] LABS: Glucose,Whole Blood 75 mg/dL (75-99)
[2018-05-27 23:01] LABS: Glucose,Whole Blood 109 mg/dL (75-99)
[2018-05-28 02:03] LABS: Glucose,Whole Blood 53 mg/dL (75-99)
[2018-05-28] MEDS ORDERED: DEXTROSE 50%-WATER 50 ML SYRINGE IVP STA ×2 (02:10→14:27)
[2018-05-28 02:23] LABS: Glucose,Whole Blood 64 mg/dL (75-99)
[2018-05-28 03:04] LABS: Glucose,Whole Blood 143 mg/dL (75-99)
[2018-05-28 05:07] LABS: Glucose,Whole Blood 77 mg/dL (75-99)
[2018-05-28] MEDS: glipiZIDE 5 MG TAB PO SCH (05:29)
[2018-05-28] MEDS: LEVOTHYROXINE 100 MCG TAB PO SCH (06:02)
[2018-05-28 06:34] LABS: Anisocytosis Slight; Basophils % (A) 1 %; Eosinophils # (A) 0.2 k/uL (0-0.7); Eosinophils % (A) 2 %; HCT 34.9 % (39.0-53.0); HGB 11.1 gm/dL (13.0-17.5); Lymphocytes # (A) 1.5 k/uL (1.0-4.8); Lymphocytes % (A) 17 %; MCHC 31.9 g/dL (31.0-37.0); MCV 81.5 fL (80.0-100.0); Mean Platelet Volume 7.9; Monocytes # (A) 0.6 k/uL (0-1.0); Monocytes % (A) 7 %; Neutrophils % (A) 72 %; Platelet Count 175 k/uL (150-450); RBC 4.27 m/uL (4.30-5.90); WBC 8.4 k/uL (3.8-10.6)
[2018-05-28 06:41] LABS: Calcium 7.9 mg/dL (8.4-10.2); Potassium 3.5 mmol/L (3.5-5.1)
[2018-05-28 06:43] LABS: Glucose,Whole Blood 81 mg/dL (75-99)
[2018-05-28 08:05] LABS: Glucose,Whole Blood 89 mg/dL (75-99)
[2018-05-28 09:08] LABS: Glucose,Whole Blood 113 mg/dL (75-99)
[2018-05-28] MEDS: ASPIRIN 81 MG PO SCH (09:46)
[2018-05-28] MEDS: SACUBITRIL/VALSARTAN 24 MG-26 MG TABLET PO SCH ×2 (09:46→20:01)
[2018-05-28] MEDS: AMIODARONE 200 MG TAB PO SCH (09:46)
[2018-05-28] MEDS: FUROSEMIDE 10 MG/ML 4 ML VIAL IV SCH ×2 (09:55→20:01)
[2018-05-28] MEDS: POTASSIUM CHLORIDE ER 20 MEQ TAB.ER PO SCH ×2 (10:07→12:29)
[2018-05-28 10:39] LABS: Glucose,Whole Blood 88 mg/dL (75-99)
--- NOTE | 2018-05-28 11:02 | P.NPCON ---
History of Present Illness - Reason for Consult acute renal failure, chronic renal failure - History of Present Illness Reason for consultation: Acute kidney injury on chronic kidney disease History of present illness: Patient is a 82-year-old male seen in renal consultation for acute kidney injury on chronic kidney disease. Patient has chronic kidney disease stage IV with baseline creatinine in the range of 1.9-2.2. Etiology is nephrosclerosis and cardiorenal syndrome. Patient has history of systolic CHF with ejection fraction of less than 20% with mild to moderate mitral regurgitation. He has a defibrillator in place. Patient presented to the hospital with dyspnea. Patient states Monday night he became quite short of breath. He does admit to taking Lasix 40 mg orally twice daily at home. However he refused to take an additional dose according to his . He admits to good urine output. No hematuria or dysuria. Currently maintained on IV Lasix 40 mg twice daily. Admits to good urine output. Symptoms have improved. Denies use of NSAIDs. Does have history of diabetes mellitus. Hasn't noticed significant weight gain. Vital signs are stable. General: The patient appeared well nourished and normally developed. HEENT: Head exam is unremarkable. Neck is without jugular venous distension. LUNGS: Lungs are clear to auscultation and percussion. Breath sounds decreased. HEART: Rate and Rhythm are regular. First and second heart sounds normal. No murmurs, rubs or gallops. ABDOMEN: Abdominal exam reveals normal bowel sounds. Non-tender and non- distended. No evidence of peritonitis. EXTREMITITES: No clubbing, cyanosis, or edema. 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 Past Anesthesia/Blood Transfusion Reactions: No Reported Reaction Type of Cardiac Device: Permanent Pacemaker, AICD Device Placement Date:: 2004 implant/2014 gen change Past Psychological History: No Psychological Hx Reported Smoking Status: Former smoker - Past Family History Mother Family Medical History: No Reported History Additional Family Medical History / Comment(s): Mother was healthy and lived to be 86yrs old. Brother(s) Family Medical History: Cancer Father Family Medical History: Cancer Additional Family Medical History / Comment(s): Father had bone cancer. He also had "heart problems." He at the age of 82 yrs. Medications and Allergies Home Medications Medication Instructions Recorded Confirmed Type Aspirin EC [Ecotrin Low Dose] 81 mg PO DAILY 01/31/15 05/27/18 History Allopurinol [Zyloprim] 100 mg PO DAILY 08/14/15 05/27/18 History Amiodarone [Cordarone] 200 mg PO DAILY 08/14/15 05/27/18 History Cholecalciferol [Vitamin D3] 1,000 unit PO DAILY 06/22/17 05/27/18 History Levothyroxine Sodium [Synthroid] 100 mcg PO DAILY 06/22/17 05/27/18 History glipiZIDE [Glucotrol] 5 mg PO BID 06/22/17 05/27/18 History Furosemide [Lasix] 40 mg PO BID #60 06/26/17 05/27/18 Rx Carvedilol [Coreg] 3.125 mg PO BID 05/27/18 05/27/18 History Sacubitril/Valsartan [Entresto 24 1 tab PO DAILY 05/27/18 05/27/18 History mg-26 mg Tablet] Allergies Allergy/AdvReac Type Severity Reaction Status Date / Time No Known Allergies Allergy Verified 05/27/18 10:16 Physical Exam Vitals: Vital Signs Temp Pulse Pulse Resp BP BP BP 05/28/18 09:44 76 101/58 05/28/18 09:05 97.5 F L 74 16 107/63 05/28/18 03:33 99.3 F 71 18 117/67 05/28/18 00:32 100.3 F H 77 18 111/66 05/27/18 23:31 98.5 F 76 16 123/68 05/27/18 21:33 83 16 113/69 05/27/18 20:00 97.4 F L 83 18 98/59 05/27/18 18:00 98.2 F 82 18 110/58 05/27/18 15:00 75 18 05/27/18 14:42 77 05/27/18 14:34 80 05/27/18 14:14 82 18 130/67 05/27/18 13:00 86 18 05/27/18 12:00 80 18 117/71 Pulse Ox 05/28/18 09:44 05/28/18 09:05 94 L 05/28/18 03:33 94 L 05/28/18 00:32 93 L 05/27/18 23:31 93 L 05/27/18 21:33 99 05/27/18 20:00 91 L 05/27/18 18:00 93 L 05/27/18 15:00 93 L 05/27/18 14:42 05/27/18 14:34 05/27/18 14:14 93 L 05/27/18 13:00 92 L 05/27/18 12:00 95 Intake and Output 05/27/18 05/28/18 05/28/18 22:59 06:59 14:59 Intake Total 20 80 Output Total 100 275 Balance -80 -195 Intake: IV 20 80 0.9 20 80 Output: Urine 100 275 Other: Voiding Method Urinal Urinal # Voids 1 0 Weight 90 kg Results - Lab Results Most recent lab results Calcium 7.9 mg/dL (8.4-10.2) L 05/28/18 05:41 Magnesium 1.9 mg/dL (1.6-2.3) 05/27/18 00:42 05/28/18 05:41 05/28/18 05:41 Assessment and Plan Plan: assessment: 1. Nonoliguric acute kidney injury mostly prerenal secondary to cardiorenal syndrome. Creatinine was 2.3 on admission and is down to 2.0 today. 2. Chronic kidney disease stage IV secondary to cardiorenal syndrome and nephrosclerosis. Baseline creatinine in the range of 1.9-2.2. 3. Volume overload. 4. Diabetes mellitus. 5. Systolic CHF with ejection fraction of less than 20% with mild to moderate mitral regurgitation. Plan: Continue Lasix 40 mg IV twice daily. Low-salt diet. Daily weights. Check urinalysis. Avoid nephrotoxic agents. Repeat electrolytes in the morning. Thank you for the consultation. I will continue to follow the patient with you during his hospital stay.
[2018-05-28 11:12] LABS: Glucose,Whole Blood 65 mg/dL (75-99)
[2018-05-28 11:29] LABS: Glucose,Whole Blood 67 mg/dL (75-99)
[2018-05-28 11:47] LABS: Glucose,Whole Blood 92 mg/dL (75-99)
--- NOTE | 2018-05-28 12:16 | P.PN ---
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 He follows with Dr. Carrera regularly. He also had a dual- chamber pacemaker implantation. He came to the hospital complaining of increasing shortness of breath for the last 2 days. Patient was initiated on IV Lasix and continues to be on that at this time. He states that he has been urinating quite a bit, however his weight is not reflective of that this morning. He also states that his breathing overall feels better today. Patient did have a drop in blood sugar through the night last night, this morning this is also stable. Blood pressure 108/60 with a heart rate in the 70s , 94% on 3 L of oxygen. White blood cell count 8.4, hemoglobin 11.1, platelet count 175. Sodium 141, potassium 3.5, BUN 46, creatinine 2.0. Objective - Vital Signs Vital signs: Vital Signs Temp 97.5 F L 05/28/18 09:05 Pulse 76 05/28/18 09:44 Resp 16 05/28/18 09:05 BP 101/58 05/28/18 09:44 Pulse Ox 94 L 05/28/18 09:05 Intake & Output 05/27/18 05/28/18 05/28/18 18:59 06:59 18:59 Intake Total 100 Output Total 780 375 Balance -780 -275 Weight 90 kg Intake: IV 100 0.9 100 Output: Urine 780 375 Other: Voiding Method Urinal Urinal # Voids 1 0 - Exam GENERAL EXAM: Patient is alert and oriented and Appears to be in moderate distress HEENT: Normocephalic. Normal reaction of pupils, equal size, normal range of extraocular motion. No erythema or exudates in the throat. NECK: No masses, no nuchal rigidity. CHEST: No chest wall deformity. LUNGS: [Diminished breath sounds at bases with scattered rhonchi HEART: Tachycardic ABDOMEN: No hepatosplenomegaly, normal bowel sounds, no guarding or rigidity. SKIN: No rashes CENTRAL NERVOUS SYSTEM: No focal deficits. EXTREMITIES: [Mild edema - Labs CBC & Chem 7: 05/28/18 05:41 05/28/18 05:41 Labs: Abnormal Lab Results - Last 24 Hours (Table) 05/27/18 05/27/18 05/28/18 Range/Units 20:34 22:59 02:01 RBC (4.30-5.90) m/uL Hgb (13.0-17.5) gm/dL Hct (39.0-53.0) % RDW (11.5-15.5) % BUN (9-20) mg/dL Creatinine (0.66-1.25) mg/dL Glucose (74-99) mg/dL POC Glucose (mg/dL) 53 L 109 H 53 L (75-99) mg/dL Calcium (8.4-10.2) mg/dL 05/28/18 05/28/18 05/28/18 Range/Units 02:20 03:02 05:41 RBC 4.27 L (4.30-5.90) m/uL Hgb 11.1 L (13.0-17.5) gm/dL Hct 34.9 L (39.0-53.0) % RDW 16.0 H (11.5-15.5) % BUN (9-20) mg/dL Creatinine (0.66-1.25) mg/dL Glucose (74-99) mg/dL POC Glucose (mg/dL) 64 L 143 H (75-99) mg/dL Calcium (8.4-10.2) mg/dL 05/28/18 05/28/18 05/28/18 Range/Units 05:41 09:05 11:05 RBC (4.30-5.90) m/uL Hgb (13.0-17.5) gm/dL Hct (39.0-53.0) % RDW (11.5-15.5) % BUN 46 H (9-20) mg/dL Creatinine 2.08 H (0.66-1.25) mg/dL Glucose 101 H (74-99) mg/dL POC Glucose (mg/dL) 113 H 65 L (75-99) mg/dL Calcium 7.9 L (8.4-10.2) mg/dL 05/28/18 Range/Units 11:19 RBC (4.30-5.90) m/uL Hgb (13.0-17.5) gm/dL Hct (39.0-53.0) % RDW (11.5-15.5) % BUN (9-20) mg/dL Creatinine (0.66-1.25) mg/dL Glucose (74-99) mg/dL POC Glucose (mg/dL) 67 L (75-99) mg/dL Calcium (8.4-10.2) mg/dL Assessment and Plan Plan: Assessment and plan #1 Acute on chronic systolic heart failure, ischemic cardiomyopathy, status post and AICD #2 atrial fibrillation, chronic persistent. He is status post cardiac Pacemaker too #3 History of coronary artery disease, status post coronary bypass/CABG . #4 Chronic Kidney disease #5 Diabetes Mellitus #6 Hypertension Plan Cardiology's perspective, we'll continue the patient on current dose of IV Lasix. Check lytes BUN and creatinine in the morning. Recommend a nephrology consult if okay with the hospitalist as well. DNP note has been reviewed, I agree with a documented findings and plan of care. Patient was seen and examined.
[2018-05-28] MEDS: CARVEDILOL 3.125 MG TAB PO SCH (12:29)
--- NOTE | 2018-05-28 13:16 | P.PN ---
Subjective This is a pleasant 82 years old male with past medical history of heart failure with ejection fraction less than 20% in 2018, atrial fibrillation, coronary artery disease, status post coronary bypass/CABG and AICD. He is status post cardiac Pacemaker too. He Follows with Dr. Johnston in the Outpatient Basis. COPD, Diabetes Mellitus, Hypertension, Liver Disease, Hypothyroidism, Who Presents Because of Progressive Dyspnea of one day duration, pt complains from one day of dry cough , but no phlegm , no chest pain or pain anywhere else, pt at baseline he is mobile using a cane, pt denies to me any h/o COPD before ( he was not giving this diagnosis previously) pt states he is ex-smoker pt is not on oxygen at home. When I see him patient's vitals looks stable, her oxygen saturation is 93% on 2- 3 L nasal cannula. Has mild leukocytosis at 11.8 K, INR is 1.3. His BMP was reviewed. Sodium 143, potassium 4.4, creatinine 2.3 close to his baseline. Troponin 0.024. Chest x-ray shows him slightly worse heart failure and pleural effusion. Patient got 1 dose of Lasix in the emergency room. And his been evaluated by wood crafter 05/28/2018 pt is lying in bed not in distress, he is breathin is better today , no chest pain , no pain anywhere else , pt sugar dropped this morning , hold glipizide in view of his worsening kid function , creatinine is improving 2.3 to 2.0 . cardiology and nephrology team are following the pt and their input is appreciated Objective - Vital Signs Vital signs: Vital Signs Temp 97.1 F L 05/28/18 12:00 Pulse 75 05/28/18 12:00 Resp 20 05/28/18 12:00 BP 88/45 05/28/18 12:00 Pulse Ox 95 05/28/18 12:00 Intake & Output 05/27/18 05/28/18 05/28/18 18:59 06:59 18:59 Intake Total 100 Output Total 780 375 200 Balance -780 -275 -200 Weight 90 kg Intake: IV 100 0.9 100 Output: Urine 780 375 200 Other: Voiding Method Urinal Urinal # Voids 1 0 - Exam GENERAL: The patient is alert and oriented x3, not in any acute distress. Well developed, well nourished. HEENT: Pupils are round and equally reacting to light. EOMI. No scleral icterus. No conjunctival pallor. Normocephalic, atraumatic. No pharyngeal erythema. No thyromegaly. CARDIOVASCULAR: S1 and S2 present. No murmurs, rubs, or gallops. -PULMONARY: Chest is clear to auscultation, BV/L scattered wheezing with basal crackles. improving ABDOMEN: Soft, nontender, nondistended, normoactive bowel sounds. No palpable organomegaly. MUSCULOSKELETAL: No joint swelling or deformity. EXTREMITIES: No cyanosis, clubbing, or pedal edema. NEUROLOGICAL: Gross neurological examination did not reveal any focal deficits. SKIN: No rashes. - Labs CBC & Chem 7: 05/28/18 05:41 05/28/18 05:41 Labs: Abnormal Lab Results - Last 24 Hours (Table) 05/27/18 05/27/18 05/28/18 Range/Units 20:34 22:59 02:01 RBC (4.30-5.90) m/uL Hgb (13.0-17.5) gm/dL Hct (39.0-53.0) % RDW (11.5-15.5) % BUN (9-20) mg/dL Creatinine (0.66-1.25) mg/dL Glucose (74-99) mg/dL POC Glucose (mg/dL) 53 L 109 H 53 L (75-99) mg/dL Calcium (8.4-10.2) mg/dL 05/28/18 05/28/18 05/28/18 Range/Units 02:20 03:02 05:41 RBC 4.27 L (4.30-5.90) m/uL Hgb 11.1 L (13.0-17.5) gm/dL Hct 34.9 L (39.0-53.0) % RDW 16.0 H (11.5-15.5) % BUN (9-20) mg/dL Creatinine (0.66-1.25) mg/dL Glucose (74-99) mg/dL POC Glucose (mg/dL) 64 L 143 H (75-99) mg/dL Calcium (8.4-10.2) mg/dL 05/28/18 05/28/18 05/28/18 Range/Units 05:41 09:05 11:05 RBC (4.30-5.90) m/uL Hgb (13.0-17.5) gm/dL Hct (39.0-53.0) % RDW (11.5-15.5) % BUN 46 H (9-20) mg/dL Creatinine 2.08 H (0.66-1.25) mg/dL Glucose 101 H (74-99) mg/dL POC Glucose (mg/dL) 113 H 65 L (75-99) mg/dL Calcium 7.9 L (8.4-10.2) mg/dL 05/28/18 Range/Units 11:19 RBC (4.30-5.90) m/uL Hgb (13.0-17.5) gm/dL Hct (39.0-53.0) % RDW (11.5-15.5) % BUN (9-20) mg/dL Creatinine (0.66-1.25) mg/dL Glucose (74-99) mg/dL POC Glucose (mg/dL) 67 L (75-99) mg/dL Calcium (8.4-10.2) mg/dL Assessment and Plan Assessment: Acute on chronic systolic heart failure, status post and AICD atrial fibrillation, He is status post cardiac Pacemaker too History of coronary artery disease, status post coronary bypass/CABG . . He Follows with Dr. Johnston in the Outpatient Basis. possible COPD, pt denies h/o COPD. less likely Chronic Kid disease Diabetes Mellitus Hypertension h/o Liver Disease Hypothyroidism Hypoglycemia Plan: This is a pleasant 82 years old male with past medical history of heart failure and COPD who presents with progressive dyspnea. Continue same treatment. Continue with symptomatic treatment. c/w breathing treatment and oxygen treatment. Continue with diuretics and cardiology consultation. Monitor lytes and vitals. DVT and GI prophylaxis. Further recommendation to the clinical course of the patient's.Hold Glipizide due to low sugar DVT px sc heparin GI Px pepcid PT/OT: pending prognosis is guarded
[2018-05-28] MEDS: DEXTROSE 50%-WATER 50 ML SYRINGE IVP ONE ×2 (13:45→13:59)
[2018-05-28 14:07] LABS: Glucose,Whole Blood 210 mg/dL (75-99)
[2018-05-28] MEDS ORDERED: DEXTROSE 50%-WATER 50 ML SYRINGE IVP PRN (14:40)
[2018-05-28 14:42] LABS: Glucose,Whole Blood 215 mg/dL (75-99)
[2018-05-28 15:14] VITALS: BMI 28.4
[2018-05-28 16:31] LABS: Glucose,Whole Blood 155 mg/dL (75-99)
[2018-05-28 17:09] LABS: Appearance,Urine Clear (Clear); Bilirubin,Urine Negative (Negative); Blood,Urine Negative (Negative); Color,Urine Yellow; Glucose,Urine (UA) Negative (Negative); Ketones,Urine Negative (Negative); Leukocyte Esterase,Urine Negative (Negative); Nitrite,Urine Negative (Negative); Protein,Urine Negative (Negative); Specific Gravity,Urine 1.009 (1.001-1.035); Urobilinogen,Urine <2.0 mg/dL (<2.0)
[2018-05-28 18:46] LABS: Glucose,Whole Blood 136 mg/dL (75-99)
[2018-05-28 20:01] LABS: Glucose,Whole Blood 143 mg/dL (75-99)
[2018-05-28 20:40] LABS: Hemoglobin A1C 5.3 % (4.0-6.0)
[2018-05-28 21:58] LABS: Glucose,Whole Blood 154 mg/dL (75-99)
[2018-05-28 23:55] LABS: Glucose,Whole Blood 154 mg/dL (75-99)
[2018-05-29 01:58] LABS: Glucose,Whole Blood 136 mg/dL (75-99)
[2018-05-29 03:56] LABS: Glucose,Whole Blood 117 mg/dL (75-99)
[2018-05-29] MEDS: LEVOTHYROXINE 100 MCG TAB PO SCH (06:07)
[2018-05-29 06:09] LABS: Glucose,Whole Blood 113 mg/dL (75-99)
[2018-05-29 06:48] LABS: Basophils # (A) 0.1 k/uL (0-0.2); Basophils % (A) 1 %; Eosinophils # (A) 0.5 k/uL (0-0.7); Eosinophils % (A) 6 %; HCT 36.2 % (39.0-53.0); HGB 11.1 gm/dL (13.0-17.5); Hypochromasia Moderate; Lymphocytes % (A) 13 %; MCH 25.6 pg (25.0-35.0); MCHC 30.8 g/dL (31.0-37.0); MCV 83.2 fL (80.0-100.0); Mean Platelet Volume 7.4; Monocytes # (A) 0.6 k/uL (0-1.0); Monocytes % (A) 7 %; Neutrophils % (A) 73 %; Platelet Count 190 k/uL (150-450); RBC 4.35 m/uL (4.30-5.90); RDW 15.5 % (11.5-15.5); WBC 8.3 k/uL (3.8-10.6)
[2018-05-29 07:02] LABS: Calcium 8.1 mg/dL (8.4-10.2)
[2018-05-29 08:01] LABS: Glucose,Whole Blood 142 mg/dL (75-99)
[2018-05-29] MEDS: SACUBITRIL/VALSARTAN 24 MG-26 MG TABLET PO SCH ×2 (09:42→19:49)
[2018-05-29] MEDS: FUROSEMIDE 10 MG/ML 4 ML VIAL IV SCH (09:42)
[2018-05-29] MEDS: CARVEDILOL 3.125 MG TAB PO SCH (09:43)
[2018-05-29] MEDS: ASPIRIN 81 MG PO SCH (09:43)
[2018-05-29] MEDS: AMIODARONE 200 MG TAB PO SCH (09:43)
--- NOTE | 2018-05-29 11:02 | P.PN ---
Subjective Patient is seen in follow-up for acute kidney injury on chronic kidney disease. Patient has chronic kidney disease stage IV with baseline creatinine in the range of 1.9-2.2 secondary to nephrosclerosis and cardiorenal syndrome. Patient has systolic CHF with ejection fraction of less than 20% with mild to moderate mitral regurgitation. Patient presented with shortness of breath. Currently maintained on Lasix 40 mg IV twice daily. Admits to good urine output. Dyspnea improved. No active complaints at this time. Vital signs are stable. General: The patient appeared well nourished and normally developed. HEENT: Head exam is unremarkable. Neck is without jugular venous distension. LUNGS: Lungs are clear to auscultation and percussion. Breath sounds decreased. HEART: Rate and Rhythm are regular. First and second heart sounds normal. No murmurs, rubs or gallops. ABDOMEN: Abdominal exam reveals normal bowel sounds. Non-tender and non- distended. No evidence of peritonitis. EXTREMITITES: No clubbing, cyanosis, or edema. Objective - Vital Signs Vital signs: Vital Signs Temp 97.1 F L 05/29/18 08:00 Pulse 76 05/29/18 08:00 Resp 18 05/29/18 08:00 BP 101/53 05/29/18 08:00 Pulse Ox 95 05/29/18 08:00 Intake & Output 05/28/18 05/29/18 05/29/18 18:59 06:59 18:59 Intake Total 480 170 230 Output Total 400 1275 Balance 80 -1105 230 Weight 90 kg 86 kg Intake: IV 170 0.9 170 Oral 480 230 Output: Urine 400 1275 Other: Voiding Method Urinal Urinal # Voids 0 - Labs CBC & Chem 7: 05/29/18 06:27 05/29/18 06:27 Labs: Abnormal Lab Results - Last 24 Hours (Table) 05/28/18 05/28/18 05/28/18 Range/Units 11:05 11:19 14:06 Hgb (13.0-17.5) gm/dL Hct (39.0-53.0) % MCHC (31.0-37.0) g/dL Chloride (98-107) mmol/L BUN (9-20) mg/dL Creatinine (0.66-1.25) mg/dL Glucose (74-99) mg/dL POC Glucose (mg/dL) 65 L 67 L 210 H (75-99) mg/dL Calcium (8.4-10.2) mg/dL 05/28/18 05/28/18 05/28/18 Range/Units 14:22 16:17 18:39 Hgb (13.0-17.5) gm/dL Hct (39.0-53.0) % MCHC (31.0-37.0) g/dL Chloride (98-107) mmol/L BUN (9-20) mg/dL Creatinine (0.66-1.25) mg/dL Glucose (74-99) mg/dL POC Glucose (mg/dL) 215 H 155 H 136 H (75-99) mg/dL Calcium (8.4-10.2) mg/dL 05/28/18 05/28/18 05/28/18 Range/Units 20:00 21:56 23:53 Hgb (13.0-17.5) gm/dL Hct (39.0-53.0) % MCHC (31.0-37.0) g/dL Chloride (98-107) mmol/L BUN (9-20) mg/dL Creatinine (0.66-1.25) mg/dL Glucose (74-99) mg/dL POC Glucose (mg/dL) 143 H 154 H 154 H (75-99) mg/dL Calcium (8.4-10.2) mg/dL 05/29/18 05/29/18 05/29/18 Range/Units 01:57 03:55 06:08 Hgb (13.0-17.5) gm/dL Hct (39.0-53.0) % MCHC (31.0-37.0) g/dL Chloride (98-107) mmol/L BUN (9-20) mg/dL Creatinine (0.66-1.25) mg/dL Glucose (74-99) mg/dL POC Glucose (mg/dL) 136 H 117 H 113 H (75-99) mg/dL Calcium (8.4-10.2) mg/dL 05/29/18 05/29/18 05/29/18 Range/Units 06:27 06:27 07:57 Hgb 11.1 L (13.0-17.5) gm/dL Hct 36.2 L (39.0-53.0) % MCHC 30.8 L (31.0-37.0) g/dL Chloride 108 H (98-107) mmol/L BUN 49 H (9-20) mg/dL Creatinine 2.00 H (0.66-1.25) mg/dL Glucose 110 H (74-99) mg/dL POC Glucose (mg/dL) 142 H (75-99) mg/dL Calcium 8.1 L (8.4-10.2) mg/dL Assessment and Plan Plan: assessment: 1. Nonoliguric acute kidney injury mostly prerenal secondary to cardiorenal syndrome. Creatinine was 2.3 on admission and is down to 2.0 today. Urinalysis benign. 2. Chronic kidney disease stage IV secondary to cardiorenal syndrome and nephrosclerosis. Baseline creatinine in the range of 1.9-2.2. 3. Volume overload. Improved with diuresis. 4. Diabetes mellitus. 5. Systolic CHF with ejection fraction of less than 20% with mild to moderate mitral regurgitation. Plan: I will change Lasix to 40 mg orally twice daily. Low-salt diet. Daily weights. Avoid nephrotoxic agents. Repeat electrolytes in the morning. Upon discharge I advised the patient to follow a low salt diet along with 60 ounces fluid restriction daily. He is to monitor his weight closely.
[2018-05-29 12:17] LABS: Glucose,Whole Blood 155 mg/dL (75-99)
[2018-05-29 12:17] LABS: Glucose,Whole Blood 135 mg/dL (75-99)
[2018-05-29] MEDS: INSULIN ASPART 100 UNIT/ML 1 ML 10 ML VIAL SQ SCH ×3 (12:20→21:09)
--- NOTE | 2018-05-29 12:44 | P.PN ---
Subjective Progress Note Date: 05/29/18 History of present illness: This is a 82-year-old gentleman with history of coronary artery disease, ischemic cardio myopathy with severe LV dysfunction and chronic congestive heart failure. He follows with Dr. Carrera regularly. He also had a dual- chamber pacemaker implantation. He came to the hospital complaining of increasing shortness of breath for the last 2 days. Patient was initiated on IV Lasix and continues to be on that at this time. He states that he has been urinating quite a bit, however his weight is not reflective of that this morning. He also states that his breathing overall feels better today. Patient did have a drop in blood sugar through the night last night, this morning this is also stable. Blood pressure 108/60 with a heart rate in the 70s , 94% on 3 L of oxygen. White blood cell count 8.4, hemoglobin 11.1, platelet count 175. Sodium 141, potassium 3.5, BUN 46, creatinine 2.0. 05/29/2018 Patient seen and examined this morning, feeling significantly better overall. Weight is down 4 kg today. Sodium 141, potassium 4.0, BUN 49, creatinine 2.0. Magnesium 2.0. We will discontinue the IV Lasix today and start the patient on oral diuretics. Plan for possible discharge home in 24hours. Objective - Vital Signs Vital signs: Vital Signs Temp 97.1 F L 05/29/18 08:00 Pulse 76 05/29/18 08:00 Resp 18 05/29/18 08:00 BP 101/53 05/29/18 08:00 Pulse Ox 95 05/29/18 08:00 Intake & Output 05/28/18 05/29/18 05/29/18 18:59 06:59 18:59 Intake Total 480 170 230 Output Total 400 1275 Balance 80 -1105 230 Weight 90 kg 86 kg Intake: IV 170 0.9 170 Oral 480 230 Output: Urine 400 1275 Other: Voiding Method Urinal Urinal # Voids 0 - Exam GENERAL EXAM: Patient is alert and oriented and Appears to be in moderate distress HEENT: Normocephalic. Normal reaction of pupils, equal size, normal range of extraocular motion. No erythema or exudates in the throat. NECK: No masses, no nuchal rigidity. CHEST: No chest wall deformity. LUNGS: Lungs are clear to auscultation HEART: Tachycardic ABDOMEN: No hepatosplenomegaly, normal bowel sounds, no guarding or rigidity. SKIN: No rashes CENTRAL NERVOUS SYSTEM: No focal deficits. EXTREMITIES: Mild edema - Labs CBC & Chem 7: 05/29/18 06:27 05/29/18 06:27 Labs: Abnormal Lab Results - Last 24 Hours (Table) 05/28/18 05/28/18 05/28/18 Range/Units 14:06 14:22 16:17 Hgb (13.0-17.5) gm/dL Hct (39.0-53.0) % MCHC (31.0-37.0) g/dL Chloride (98-107) mmol/L BUN (9-20) mg/dL Creatinine (0.66-1.25) mg/dL Glucose (74-99) mg/dL POC Glucose (mg/dL) 210 H 215 H 155 H (75-99) mg/dL Calcium (8.4-10.2) mg/dL 05/28/18 05/28/18 05/28/18 Range/Units 18:39 20:00 21:56 Hgb (13.0-17.5) gm/dL Hct (39.0-53.0) % MCHC (31.0-37.0) g/dL Chloride (98-107) mmol/L BUN (9-20) mg/dL Creatinine (0.66-1.25) mg/dL Glucose (74-99) mg/dL POC Glucose (mg/dL) 136 H 143 H 154 H (75-99) mg/dL Calcium (8.4-10.2) mg/dL 05/28/18 05/29/18 05/29/18 Range/Units 23:53 01:57 03:55 Hgb (13.0-17.5) gm/dL Hct (39.0-53.0) % MCHC (31.0-37.0) g/dL Chloride (98-107) mmol/L BUN (9-20) mg/dL Creatinine (0.66-1.25) mg/dL Glucose (74-99) mg/dL POC Glucose (mg/dL) 154 H 136 H 117 H (75-99) mg/dL Calcium (8.4-10.2) mg/dL 05/29/18 05/29/18 05/29/18 Range/Units 06:08 06:27 06:27 Hgb 11.1 L (13.0-17.5) gm/dL Hct 36.2 L (39.0-53.0) % MCHC 30.8 L (31.0-37.0) g/dL Chloride 108 H (98-107) mmol/L BUN 49 H (9-20) mg/dL Creatinine 2.00 H (0.66-1.25) mg/dL Glucose 110 H (74-99) mg/dL POC Glucose (mg/dL) 113 H (75-99) mg/dL Calcium 8.1 L (8.4-10.2) mg/dL 05/29/18 05/29/18 05/29/18 Range/Units 07:57 10:42 11:45 Hgb (13.0-17.5) gm/dL Hct (39.0-53.0) % MCHC (31.0-37.0) g/dL Chloride (98-107) mmol/L BUN (9-20) mg/dL Creatinine (0.66-1.25) mg/dL Glucose (74-99) mg/dL POC Glucose (mg/dL) 142 H 155 H 135 H (75-99) mg/dL Calcium (8.4-10.2) mg/dL Assessment and Plan Plan: Assessment and plan #1 Acute on chronic systolic heart failure, ischemic cardiomyopathy, status post and AICD #2 atrial fibrillation, chronic persistent. He is status post cardiac Pacemaker too #3 History of coronary artery disease, status post coronary bypass/CABG . #4 Chronic Kidney disease #5 Diabetes Mellitus #6 Hypertension Plan Cardiology's perspective, we'll discontinue the IV Lasix and start the patient on oral diuretics today. Plan for possible discharge home in 24 hours if stable. DNP note has been reviewed, I agree with a documented findings and plan of care. Patient was seen and examined.
--- NOTE | 2018-05-29 14:06 | XR ---
EXAMINATION TYPE: XR chest 2V DATE OF EXAM: 05/29/2018 COMPARISON: 05/27/2018 TECHNIQUE: PA and lateral views submitted. HISTORY: Difficulty breathing FINDINGS: Bilateral small effusion with diffuse interstitial pattern and cardiomegaly noted. Cardiac device, Me diport, and postsurgical changes seen. Granuloma left upper lobe. Atherosclerotic change aorta. Findi ngs appear stable. IMPRESSION: 1. Bilateral infiltrate, small effusion and diffuse interstitial pattern CHF favored. Atypical or int erstitial pneumonitis also in the differential diagnosis.
[2018-05-29] MEDS ORDERED: IOPAMIDOL-250 50ML BTL IV ONE (16:13)
--- NOTE | 2018-05-29 16:30 | P.PCN ---
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
[2018-05-29 17:18] LABS: Glucose,Whole Blood 140 mg/dL (75-99)
[2018-05-29] MEDS: FUROSEMIDE 40 MG TAB PO SCH (18:39)
[2018-05-29 21:01] LABS: Glucose,Whole Blood 152 mg/dL (75-99)
[2018-05-29] MEDS ORDERED: MELATONIN 3 MG TABLET PO PRN (23:32)
--- NOTE | 2018-05-29 23:54 | P.PN ---
Subjective This is a pleasant 82 years old male with past medical history of heart failure with ejection fraction less than 20% in 2018, atrial fibrillation, coronary artery disease, status post coronary bypass/CABG and AICD. He is status post cardiac Pacemaker too. He Follows with Dr. Johnston in the Outpatient Basis. COPD, Diabetes Mellitus, Hypertension, Liver Disease, Hypothyroidism, Who Presents Because of Progressive Dyspnea of one day duration, pt complains from one day of dry cough , but no phlegm , no chest pain or pain anywhere else, pt at baseline he is mobile using a cane, pt denies to me any h/o COPD before ( he was not giving this diagnosis previously) pt states he is ex-smoker pt is not on oxygen at home. When I see him patient's vitals looks stable, her oxygen saturation is 93% on 2- 3 L nasal cannula. Has mild leukocytosis at 11.8 K, INR is 1.3. His BMP was reviewed. Sodium 143, potassium 4.4, creatinine 2.3 close to his baseline. Troponin 0.024. Chest x-ray shows him slightly worse heart failure and pleural effusion. Patient got 1 dose of Lasix in the emergency room. And his been evaluated by percussion instructor 05/28/2018 pt is lying in bed not in distress, he is breathin is better today , no chest pain , no pain anywhere else , pt sugar dropped this morning , hold glipizide in view of his worsening kid function , creatinine is improving 2.3 to 2.0 . cardiology and nephrology team are following the pt and their input is appreciated 05/29/2018 pt breathing is doing better today , pt however has low grade temp , around 100 F, pt has wound in his leg with no s/s of cellultis , we will repeat CXR and ask ID team to evaluate the pt Objective - Vital Signs Vital signs: Vital Signs Temp 96.8 F L 05/29/18 19:52 Pulse 74 05/29/18 20:00 Resp 18 05/29/18 20:00 BP 100/45 05/29/18 19:52 Pulse Ox 97 05/29/18 19:52 Intake & Output 05/29/18 05/29/18 05/30/18 06:59 18:59 06:59 Intake Total 170 1260 Output Total 1275 700 300 Balance -1105 560 -300 Weight 86 kg Intake: IV 170 200 0.9 170 200 Oral 1060 Output: Urine 1275 700 300 Other: Voiding Method Urinal Urinal # Voids 1 - Exam GENERAL: The patient is alert and oriented x3, not in any acute distress. Well developed, well nourished. HEENT: Pupils are round and equally reacting to light. EOMI. No scleral icterus. No conjunctival pallor. Normocephalic, atraumatic. No pharyngeal erythema. No thyromegaly. CARDIOVASCULAR: S1 and S2 present. No murmurs, rubs, or gallops. -PULMONARY: Chest is clear to auscultation, BV/L scattered wheezing with basal crackles. improving ABDOMEN: Soft, nontender, nondistended, normoactive bowel sounds. No palpable organomegaly. MUSCULOSKELETAL: No joint swelling or deformity. EXTREMITIES: No cyanosis, clubbing, or pedal edema. NEUROLOGICAL: Gross neurological examination did not reveal any focal deficits. SKIN: No rashes. - Labs CBC & Chem 7: 05/29/18 06:27 05/29/18 06:27 Labs: Abnormal Lab Results - Last 24 Hours (Table) 05/28/18 05/29/18 05/29/18 Range/Units 23:53 01:57 03:55 Hgb (13.0-17.5) gm/dL Hct (39.0-53.0) % MCHC (31.0-37.0) g/dL Chloride (98-107) mmol/L BUN (9-20) mg/dL Creatinine (0.66-1.25) mg/dL Glucose (74-99) mg/dL POC Glucose (mg/dL) 154 H 136 H 117 H (75-99) mg/dL Calcium (8.4-10.2) mg/dL 05/29/18 05/29/18 05/29/18 Range/Units 06:08 06:27 06:27 Hgb 11.1 L (13.0-17.5) gm/dL Hct 36.2 L (39.0-53.0) % MCHC 30.8 L (31.0-37.0) g/dL Chloride 108 H (98-107) mmol/L BUN 49 H (9-20) mg/dL Creatinine 2.00 H (0.66-1.25) mg/dL Glucose 110 H (74-99) mg/dL POC Glucose (mg/dL) 113 H (75-99) mg/dL Calcium 8.1 L (8.4-10.2) mg/dL 05/29/18 05/29/18 05/29/18 Range/Units 07:57 10:42 11:45 Hgb (13.0-17.5) gm/dL Hct (39.0-53.0) % MCHC (31.0-37.0) g/dL Chloride (98-107) mmol/L BUN (9-20) mg/dL Creatinine (0.66-1.25) mg/dL Glucose (74-99) mg/dL POC Glucose (mg/dL) 142 H 155 H 135 H (75-99) mg/dL Calcium (8.4-10.2) mg/dL 05/29/18 05/29/18 Range/Units 17:06 21:00 Hgb (13.0-17.5) gm/dL Hct (39.0-53.0) % MCHC (31.0-37.0) g/dL Chloride (98-107) mmol/L BUN (9-20) mg/dL Creatinine (0.66-1.25) mg/dL Glucose (74-99) mg/dL POC Glucose (mg/dL) 140 H 152 H (75-99) mg/dL Calcium (8.4-10.2) mg/dL Assessment and Plan Assessment: Acute on chronic systolic heart failure, status post and AICD atrial fibrillation, He is status post cardiac Pacemaker too History of coronary artery disease, status post coronary bypass/CABG . . He Follows with Dr. Johnston in the Outpatient Basis. possible COPD, pt denies h/o COPD. less likely Chronic Kid disease Diabetes Mellitus Hypertension h/o Liver Disease Hypothyroidism Hypoglycemia Plan: This is a pleasant 82 years old male with past medical history of heart failure and COPD who presents with progressive dyspnea. Continue same treatment. Continue with symptomatic treatment. c/w breathing treatment and oxygen treatment. Continue with diuretics and cardiology consultation. Monitor lytes and vitals. DVT and GI prophylaxis. Further recommendation to the clinical course of the patient's.Hold Glipizide due to low sugar DVT px sc heparin GI Px pepcid PT/OT: pending prognosis is guarded
[2018-05-29 23:55] VITALS: RESP 16
[2018-05-30 06:01] LABS: Glucose,Whole Blood 129 mg/dL (75-99)
[2018-05-30] MEDS: INSULIN ASPART 100 UNIT/ML 1 ML 10 ML VIAL SQ SCH ×2 (06:19→12:28)
[2018-05-30 06:21] LABS: Basophils % (A) 1 %; Eosinophils # (A) 0.5 k/uL (0-0.7); Eosinophils % (A) 8 %; HCT 36.1 % (39.0-53.0); HGB 11.4 gm/dL (13.0-17.5); Hypochromasia Slight; Lymphocytes # (A) 1.3 k/uL (1.0-4.8); Lymphocytes % (A) 20 %; MCH 26.1 pg (25.0-35.0); MCHC 31.6 g/dL (31.0-37.0); MCV 82.7 fL (80.0-100.0); Mean Platelet Volume 7.5; Monocytes # (A) 0.4 k/uL (0-1.0); Monocytes % (A) 6 %; Neutrophils # (A) 4.1 k/uL (1.3-7.7); Neutrophils % (A) 64 %; Platelet Count 209 k/uL (150-450); RBC 4.36 m/uL (4.30-5.90); RDW 15.6 % (11.5-15.5); WBC 6.4 k/uL (3.8-10.6)
[2018-05-30] MEDS: LEVOTHYROXINE 100 MCG TAB PO SCH (06:28)
[2018-05-30 06:45] LABS: Calcium 8.4 mg/dL (8.4-10.2)
--- NOTE | 2018-05-30 08:00 | CONS ---
CONSULTATION DATE OF SERVICE: 05/29/2018 REASON FOR CONSULTATION: 1. Fever. 2. Right leg wound. HISTORY OF PRESENT ILLNESS: The patient is an 82-year-old male who presented to the [facility] ER on 05/26/2018 with chief complaints of increasing shortness of breath. His symptoms has been getting worse before he presented. The patient has been complaining of orthopnea, but no PND. He has also been complaining of swelling in his lower extremity. No high-grade fever, rigors or chills. With his symptoms, the patient was evaluated by the ER physician. The patient has been diagnosed with congestive heart failure on the basis of chest x-ray. The patient does have a cough which is mild in intensity and is dry in nature. No chest pain. No nausea. No vomiting. No URI symptoms. No abdominal pain and no diarrhea. The patient was evaluated by the ER physician. The patient was afebrile on admission. He did have a low-grade fever around midnight of 100.3, however, the patient is afebrile since then. Infectious Disease consultation was requested for further management. The patient also has a small wound on the right anterior watters/leg that he had for a couple of weeks now. The patient says as a trauma to the leg has been using different kind of salves on it without any healing. He denies having any pain to the right leg wound area or any drainage from it. No significant erythema. REVIEW OF SYSTEMS: CONSTITUTIONAL: Positive for weakness and low-grade fever x1 episode as mentioned above. EYES: No complaint. ENT: No complaint. RESPIRATORY: As per HPI. CARDIOVASCULAR: As per HPI. GENITOURINARY: No complaint. GASTROINTESTINAL: No complaint. MUSCULOSKELETAL: No complaint. INTEGUMENTARY; As per HPI. PSYCHOLOGICAL: No complaint. ENDOCRINE: No complaint. NEUROLOGICAL: No complaint. PAST MEDICAL HISTORY: Coronary artery disease, atrial fibrillation, heart failure, COPD, diabetes mellitus, hypertension, myocardial infarction, hypothyroidism, mantle cell lymphoma, pleural effusion, sepsis, UTI. PAST SURGICAL HISTORY: AICD placement, coronary artery bypass grafting, heart catheterization, cardioversion, left-sided thoracocentesis x2, colonoscopy, bone marrow biopsy, bilateral cataract surgery. SOCIAL HISTORY: Remote history of smoking. No drinking or drug use. Lives with the family. FAMILY HISTORY: Mother with and lived to be 86-year-old. Father history of bone cancer and heart problems. ALLERGIES: No known drug allergies. MEDICATIONS: Medications currently include the patient is on DuoNeb, amiodarone, aspirin, Coreg, Lasix, NovoLog, Synthroid, Narcan, Entresto. PHYSICAL EXAMINATION: On examination, blood pressure is 100/45 with a pulse of 74, temperature of 96.8. He is 97% on 2 L nasal cannula. General description is an elderly male lying in bed in no distress. HEENT examination shows slight pallor. No scleral icterus. Oral mucous membrane is dry. No pharyngeal erythema or thrush. NECK: Trachea central. No thyromegaly. LUNGS: Unlabored breathing, fine crackles at the bases bilaterally. No wheeze. HEART: S1, S2. Regular rate and rhythm. ABDOMEN: Soft, no tenderness. No guarding or rigidity. EXTREMITIES: No edema of feet. Right leg superficial wound with no slough tissue, no surrounding erythema or any foul-smelling drainage. NEUROLOGICALLY: Patient is awake, alert, oriented x3. Mood and affect normal. LABS: Hemoglobin is 11.1, white count of 8.3, BUN of 49, creatinine 2.0. Electrolytes have been normal. Chest x-ray report as mentioned above. No culture during this admission. DIAGNOSTIC IMPRESSION AND PLAN: Patient with low-grade fever in this patient admitted to the hospital with shortness of breath progressive, more congestive heart failure exacerbation. The patient did have a low-grade fever, however, no clinical focus of bacterial infection. The patient chest x-ray suggestive of congestive heart failure with no evidence of any pneumonia. Urine is negative. No evidence of cellulitis of right leg wound traumatic but no secondary wound infection. PLAN: 1. We will watch the patient closely off antibiotic therapy at this point. If he spikes any more fever or any change in his clinical condition to culture him before starting him on any antibiotics. 2. Right leg wound will be treated with an Aquacel Silver dressing to be changed . 3. We will follow up on his clinical condition to further adjust medication if needed. Family was present at bedside. Their questions were answered. MMODL / IJN: [id number] /
[2018-05-30] MEDS: CARVEDILOL 3.125 MG TAB PO SCH (08:40)
[2018-05-30] MEDS: ASPIRIN 81 MG PO SCH (08:40)
[2018-05-30] MEDS: SACUBITRIL/VALSARTAN 24 MG-26 MG TABLET PO SCH (08:40)
[2018-05-30] MEDS: FUROSEMIDE 40 MG TAB PO SCH ×2 (08:40→15:45)
[2018-05-30] MEDS: AMIODARONE 200 MG TAB PO SCH (08:40)
--- NOTE | 2018-05-30 11:49 | P.PN ---
Subjective Progress Note Date: 05/30/18 Principal diagnosis: This 82-year-old is known with chronic kidney disease and acute kidney injury secondary to cardiorenal syndrome responding to diuretics creatinine is back to baseline at 2. He feels fairly well denies any shortness of breath although he has minimal cough. He is on room air. Good appetite is able to walk. His urine output is documented at 100 mL. He was admitted with CHF, has ejection fraction of 20% atrial fibrillation coronary artery disease status post CABG and AICD. Also has COPD. Objective - Vital Signs Vital signs: Vital Signs Temp 97.3 F L 05/30/18 08:00 Pulse 64 05/30/18 08:00 Resp 16 05/30/18 08:00 BP 116/70 05/30/18 08:00 Pulse Ox 97 05/30/18 08:00 Intake & Output 05/29/18 05/30/18 05/30/18 18:59 06:59 18:59 Intake Total 1260 100 Output Total 700 500 120 Balance 560 -500 -20 Weight 86.5 kg Intake: IV 200 0.9 200 Oral 1060 100 Output: Urine 700 500 120 Other: Voiding Method Urinal # Voids 1 Awake alert oriented comfortable HEENT exam no JVP neck is supple no facial asymmetry Lungs are significant for bilateral coarse crackle at bases not clear but cough. Heart sounds are unremarkable no murmur rub gallop Abdomen soft nontender. No masses felt Extremity examination was no edema Neurologically awake alert oriented - Labs CBC & Chem 7: 05/30/18 05:54 05/30/18 05:54 Labs: Abnormal Lab Results - Last 24 Hours (Table) 05/29/18 05/29/18 05/29/18 Range/Units 10:42 11:45 17:06 Hgb (13.0-17.5) gm/dL Hct (39.0-53.0) % RDW (11.5-15.5) % BUN (9-20) mg/dL Creatinine (0.66-1.25) mg/dL Glucose (74-99) mg/dL POC Glucose (mg/dL) 155 H 135 H 140 H (75-99) mg/dL 05/29/18 05/30/18 05/30/18 Range/Units 21:00 05:54 05:54 Hgb 11.4 L (13.0-17.5) gm/dL Hct 36.1 L (39.0-53.0) % RDW 15.6 H (11.5-15.5) % BUN 53 H (9-20) mg/dL Creatinine 2.10 H (0.66-1.25) mg/dL Glucose 118 H (74-99) mg/dL POC Glucose (mg/dL) 152 H (75-99) mg/dL 05/30/18 Range/Units 06:00 Hgb (13.0-17.5) gm/dL Hct (39.0-53.0) % RDW (11.5-15.5) % BUN (9-20) mg/dL Creatinine (0.66-1.25) mg/dL Glucose (74-99) mg/dL POC Glucose (mg/dL) 129 H (75-99) mg/dL Assessment and Plan Assessment: Impression 1. Acute kidney injury secondary to cardiorenal syndrome improved with diuresis.. Creatinine was 2.3 on admission is currently 2.1. Adequate urine output on current Lasix dose of 40 twice a day. 2. Chronic kidney disease nephrosclerosis Baseline creatinine is 2. 3. History of coronary artery disease, cardiac myopathy, AICD, stable compensated 4. Bilateral basal crackles secondary to COPD. 5. Mild anemia hemoglobin 11.4 at target. Recommendation. 1. May be discharged but needs to be followed up closely to ensure adequacy of volume status being optimized. Currently on Lasix 40 twice a day which is his home Lasix dose. Would like to see him in the office in about 2 or 3 days after discharge
[2018-05-30 13:46] VITALS: BP 108/54; PULSE 65; TEMP 96.9
--- NOTE | 2018-05-30 14:35 | P.PN ---
Subjective Progress Note Date: 05/30/18 History of present illness: This is a 82-year-old gentleman with history of coronary artery disease, ischemic cardio myopathy with severe LV dysfunction and chronic congestive heart failure. He follows with Dr. Carrera regularly. He also had a dual- chamber pacemaker implantation. He came to the hospital complaining of increasing shortness of breath for the last 2 days. Patient was initiated on IV Lasix and continues to be on that at this time. He states that he has been urinating quite a bit, however his weight is not reflective of that this morning. He also states that his breathing overall feels better today. Patient did have a drop in blood sugar through the night last night, this morning this is also stable. Blood pressure 108/60 with a heart rate in the 70s , 94% on 3 L of oxygen. White blood cell count 8.4, hemoglobin 11.1, platelet count 175. Sodium 141, potassium 3.5, BUN 46, creatinine 2.0. 05/29/2018 Patient seen and examined this morning, feeling significantly better overall. Weight is down 4 kg today. Sodium 141, potassium 4.0, BUN 49, creatinine 2.0. Magnesium 2.0. We will discontinue the IV Lasix today and start the patient on oral diuretics. Plan for possible discharge home in 24hours. 05/30/2008 Patient seen and examined this morning, feels well, breathing is stable. Blood pressure 108/50, heart rate in the 60s, 90-60% on room air. White blood cell count 6.4, hemoglobin 11.4, platelet count 209. Sodium 141, potassium 4.0, BUN 53, creatinine 2.1. From cardiology's perspective, he may be able to be discharged home today. We'll make him a follow-up appointment in the office with Dr. Carrera. We will also get lytes BUN and creatinine in one week. Objective - Vital Signs Vital signs: Vital Signs Temp 96.9 F L 05/30/18 12:00 Pulse 65 05/30/18 12:00 Resp 16 05/30/18 12:00 BP 108/54 05/30/18 12:00 Pulse Ox 92 L 05/30/18 12:00 Intake & Output 05/29/18 05/30/18 05/30/18 18:59 06:59 18:59 Intake Total 1260 100 Output Total 700 500 120 Balance 560 -500 -20 Weight 86.5 kg Intake: IV 200 0.9 200 Oral 1060 100 Output: Urine 700 500 120 Other: Voiding Method Urinal # Voids 1 - Exam GENERAL EXAM: Patient is alert and oriented and Appears to be in moderate distress HEENT: Normocephalic. Normal reaction of pupils, equal size, normal range of extraocular motion. No erythema or exudates in the throat. NECK: No masses, no nuchal rigidity. CHEST: No chest wall deformity. LUNGS: Lungs are clear to auscultation HEART: Tachycardic ABDOMEN: No hepatosplenomegaly, normal bowel sounds, no guarding or rigidity. SKIN: No rashes CENTRAL NERVOUS SYSTEM: No focal deficits. EXTREMITIES: Mild edema - Labs CBC & Chem 7: 05/30/18 05:54 05/30/18 05:54 Labs: Abnormal Lab Results - Last 24 Hours (Table) 05/29/18 05/29/18 05/30/18 Range/Units 17:06 21:00 05:54 Hgb 11.4 L (13.0-17.5) gm/dL Hct 36.1 L (39.0-53.0) % RDW 15.6 H (11.5-15.5) % BUN (9-20) mg/dL Creatinine (0.66-1.25) mg/dL Glucose (74-99) mg/dL POC Glucose (mg/dL) 140 H 152 H (75-99) mg/dL 05/30/18 05/30/18 Range/Units 05:54 06:00 Hgb (13.0-17.5) gm/dL Hct (39.0-53.0) % RDW (11.5-15.5) % BUN 53 H (9-20) mg/dL Creatinine 2.10 H (0.66-1.25) mg/dL Glucose 118 H (74-99) mg/dL POC Glucose (mg/dL) 129 H (75-99) mg/dL Assessment and Plan Plan: Assessment and plan #1 Acute on chronic systolic heart failure, ischemic cardiomyopathy, status post and AICD #2 atrial fibrillation, chronic persistent. He is status post cardiac Pacemaker too #3 History of coronary artery disease, status post coronary bypass/CABG . #4 Chronic Kidney disease #5 Diabetes Mellitus #6 Hypertension Plan Cardiology's perspective, patient may be able to be discharged home today. We will make him a follow-up appointment to see Dr. Carrera in the office. Millietes BUN and creatinine in one week. DNP note has been reviewed, I agree with a documented findings and plan of care. Patient was seen and examined.
[2018-05-30 16:43] LABS: Glucose,Whole Blood 191 mg/dL (75-99)
--- NOTE | 2018-05-30 23:03 | PN ---
PROGRESS NOTE DATE OF SERVICE: 05/30/2018 REASON FOR FOLLOWUP: 1. Fever. 2. Right lower extremity but no cellulitis. INTERVAL HISTORY: The patient was seen on rounds this morning. The patient had been afebrile. He was breathing comfortably. Denied significant chest pain or any cough. No abdominal pain. No pain in the right left area. PHYSICAL EXAMINATION: Blood pressure 108/54 with a pulse of 65, temperature 96.9. He is 92% on room air. General description is an elderly male lying in bed in no distress. RESPIRATORY SYSTEM: Unlabored breathing. Clear to auscultation anteriorly. HEART: S1, S2. Regular rate and rhythm. ABDOMEN: Soft, non-tender. Right leg wound is dressed. No obvious drainage on the dressing. LABS: White count 6.4. DIAGNOSTIC IMPRESSION AND PLAN: 1. Patient with a fever that has resolved. No clear focus of infection. Did well off antibiotic therapy; hence no need for any antibiotic on discharge. 2. Right leg wound. Local wound care with an Aquacel Silver dressing. Follow up in the office in a week or so if the wound has not healed. Continue with supportive care. MMODL / IJN: [id number] /
--- NOTE | 2018-06-01 12:40 | ECHOF ---
Referral Reason:chf MEASUREMENTS -------- HEIGHT: 182.9 cm WEIGHT: 89.8 kg BP: 117/67 IVSd: 1.1 cm (0.6 - 1.1) LVIDd: 6.1 cm (3.9 - 5.3) LVPWd: 1.3 cm (0.6 - 1.1) IVSs: 1.2 cm LVIDs: 6.1 cm LVPWs: 1.2 cm Ao Diam: 2.7 cm (2.0 - 3.7) AV Cusp: 1.7 cm (1.5 - 2.6) LA Diam: 3.5 cm (2.7 - 3.8) MV EXCURSION: 12.148 mm (> 18.000) MV EF SLOPE: 37 mm/s (70 - 150) EPSS: 1.3 cm MV E Jose Antonio: 0.92 m/s MV DecT: 162 ms MV A Jose Antonio: 0.81 m/s MV E/A Ratio: 1.14 AR PHT: 464 ms RAP: 5.00 mmHg RVSP: 18.28 mmHg FINDINGS -------- Sinus rhythm. AICD This was a technically difficult study with suboptimal views. The left ventricle is mildly dilated. There is borderline concentric left ventricular hypertrophy. Overall left ventricular systolic function is severely impaired with, an EF < 20%. The right ventricle is normal in size and function. The left atrium is normal in size. The right atrium is normal in size. Lumason used Aortic valve is trileaflet and is mildly thickened. There is mild aortic regurgitation. The mitral valve leaflets are mildly thickened. Moderate mitral regurgitation is present. Mild tricuspid regurgitation present. The right ventricular systolic pressure, as measured by Doppl er, is 18.28mmHg. Trace/mild (physiologic) pulmonic regurgitation. The aortic root size is normal. There is no pericardial effusion. CONCLUSIONS -------- 1. Sinus rhythm. 2. AICD 3. This was a technically difficult study with suboptimal views. 4. The left ventricle is mildly dilated. 5. There is borderline concentric left ventricular hypertrophy. 6. Overall left ventricular systolic function is severely impaired with, an EF < 20%. 7. The left atrium is normal in size. 8. Lumason used 9. Aortic valve is trileaflet and is mildly thickened. 10. There is mild aortic regurgitation. 11. The mitral valve leaflets are mildly thickened. 12. Moderate mitral regurgitation is present. 13. Mild tricuspid regurgitation present. 14. The right ventricular systolic pressure, as measured by Doppler, is 18.28mmHg. 15. Trace/mild (physiologic) pulmonic regurgitation. 16. The aortic root size is normal. 17. There is no pericardial effusion. PLANT CUSTODIAN: Linda Pleitez RDCS
== END 2018-05-30 17:58 | disposition home or self-care (01) | DRG 291 ==
LOC: EC 23:53 → 6SEL 05-27 01:38
PROVIDERS: ADMIT Internal Medicine; ATTEND Internal Medicine
PROC: B51NYZZ Fluoroscopy of Left Upper Extremity Veins using Other Contrast (ICD-10-PCS; principal; 2018-05-29 16:08)
DX: I13.2 Hypertensive heart and chronic kidney disease with heart failure and with stage 5 chronic kidney disease, or end stage renal disease (principal); I50.23 Acute on chronic systolic (congestive) heart failure; N17.9 Acute kidney failure, unspecified; N18.4 Chronic kidney disease, stage 4 (severe); E11.22 Type 2 diabetes mellitus with diabetic chronic kidney disease; E11.649 Type 2 diabetes mellitus with hypoglycemia without coma; J44.9 Chronic obstructive pulmonary disease, unspecified; I25.5 Ischemic cardiomyopathy; I48.2 Chronic atrial fibrillation; I34.0 Nonrheumatic mitral (valve) insufficiency; D64.9 Anemia, unspecified; I44.7 Left bundle-branch block, unspecified; R50.9 Fever, unspecified; E03.9 Hypothyroidism, unspecified; K76.9 Liver disease, unspecified; R09.02 Hypoxemia; D72.829 Elevated white blood cell count, unspecified; I25.10 Atherosclerotic heart disease of native coronary artery without angina pectoris; I25.2 Old myocardial infarction; Z79.84 Long term (current) use of oral hypoglycemic drugs; Z79.82 Long term (current) use of aspirin; Z79.890 Hormone replacement therapy; Z79.899 Other long term (current) drug therapy; Z95.1 Presence of aortocoronary bypass graft; Z95.810 Presence of automatic (implantable) cardiac defibrillator; Z87.891 Personal history of nicotine dependence; Z85.72 Personal history of non-Hodgkin lymphomas; Z87.440 Personal history of urinary (tract) infections; Z86.79 Personal history of other diseases of the circulatory system; Z95.0 Presence of cardiac pacemaker; Z98.42 Cataract extraction status, left eye; Z98.41 Cataract extraction status, right eye; Z80.8 Family history of malignant neoplasm of other organs or systems
CPT/HCPCS: 36005; 36415; 71046; 75820; 80048; 80053; 81003; 82550; 82553; 83036; 83735; 83880; 84484; 85025; 85610; 85730; 93005; 93306; 94640; 96374; 96376; 99285

== ENCOUNTER → 2018-06-14 | Outpatient (CLI) | payer MEDICARE ==
[2018-06-14 11:30] LABS: HCT 40.9 % (39.0-53.0); HGB 12.7 gm/dL (13.0-17.5); Hypochromasia Slight; MCH 25.6 pg (25.0-35.0); MCV 82.8 fL (80.0-100.0); Mean Platelet Volume 7.2; Platelet Count 240 k/uL (150-450); RBC 4.94 m/uL (4.30-5.90); RDW 15.9 % (11.5-15.5); WBC 8.8 k/uL (3.8-10.6)
[2018-06-14 11:59] LABS: Potassium 4.5 mmol/L (3.5-5.1)
== END | disposition home or self-care (01) ==
LOC: LABPAT 10:25
PROVIDERS: ATTEND Internal Medicine Clinical Cardiac Electrophysiology
DX: Z01.812 Encounter for preprocedural laboratory examination (principal); I50.22 Chronic systolic (congestive) heart failure
CPT/HCPCS: 36415; 80051; 82565; 82947; 84520; 85027

== ENCOUNTER 2018-06-19 09:02 | Day surgery (SDC) | payer MEDICARE ==
[~2018-06-19 09:02] MED LIST changes: -LACTATED RINGERS 1,000 ML IV SCH; +SODIUM CHLORIDE 0.9% 1,000 ML IV SCH; +ceFAZolin 1,000 MG in SODIUM CHLORIDE 0.9% IRRIGATIO 250 ML IRRIGATION ONE; +ceFAZolin IN SWFI 2 GM/20 ML SYRINGE IVP ONE
[2018-06-19 10:29] LABS: Glucose,Whole Blood 94 mg/dL (75-99)
[2018-06-19] MEDS ORDERED: MIDAZOLAM 2 MG/2 ML VIAL ONE (11:58)
[2018-06-19] MEDS ORDERED: fentaNYL (PF) 50 MCG/ML 2 ML AMP ONE (11:58)
[2018-06-19] MEDS ORDERED: PROPOFOL 10 MG/ML 20 ML VIAL IV ONE (11:58)
[2018-06-19] MEDS ORDERED: ePHEDrine SULFATE/0.9% NACL/PF 50 MG/5 ML SYRINGE IV ONE (11:58)
[2018-06-19] MEDS ORDERED: IV FLUID CONTINUATION 800 ML IV ONE (12:23)
[2018-06-19] MEDS ORDERED: LIDOCAINE 1% INJ 10MG/ML (20 ML MDV) SQ ONE (13:12)
[2018-06-19] MEDS ORDERED: LIDOCAINE 1% INJ 10MG/ML (20 ML MDV) ONE (13:13)
[2018-06-19] MEDS ORDERED: IOPAMIDOL-250 50ML BTL IV ONE (14:20)
[2018-06-19] MEDS ORDERED: ACETAMINOPHEN TAB 325 MG TAB PO PRN (14:57)
[2018-06-19] MEDS ORDERED: ACETAMINOPHEN IV (For NPO) 1,000 MG in EMPTY BAG 1 BAG IVPB ONE (15:00)
[2018-06-19] MEDS: LACTATED RINGERS 1,000 ML IV SCH (16:56)
[2018-06-19 17:21] LABS: Glucose,Whole Blood 71 mg/dL (75-99)
[2018-06-19 20:34] LABS: Glucose,Whole Blood 129 mg/dL (75-99)
[2018-06-19] MEDS: ceFAZolin IN SWFI 2 GM/20 ML SYRINGE IVP SCH (21:08)
[2018-06-19] MEDS: HYDROcodone/APAP 5-325MG 1 EACH TAB PO PRN (21:16)
[2018-06-19] MEDS: SACUBITRIL/VALSARTAN 24 MG-26 MG TABLET PO SCH (21:16)
[2018-06-19] MEDS: CARVEDILOL 3.125 MG TAB PO SCH (21:17)
[2018-06-19] MEDS: glipiZIDE 5 MG TAB PO SCH (21:17)
[2018-06-19] MEDS: FUROSEMIDE 40 MG TAB PO SCH (21:18)
[2018-06-19 22:52] VITALS: BMI 24.5
--- NOTE | 2018-06-20 00:21 | PCN ---
PROCEDURE NOTE DATE OF SERVICE: 06/19/2018. HISTORY: Mr. Patel is an 83-year-old male patient who has known severe ischemic cardiomyopathy, underlying left bundle branch block, recurrent heart failure symptoms, and recent hospitalization once again for congestive heart failure despite being on appropriate guideline-directed medical treatment for many years. He has a dual-chamber ICD in situ. Venogram showed a patent left subclavian vein. Therefore, an upgrade to a biventricular ICD was recommended for management of heart failure since he has failed medical treatment. Ejection fraction is severely reduced. DESCRIPTION OF PROCEDURE: The patient was brought to the EP lab in a fasting state. Written informed consent was obtained prior to the procedure. The left shoulder area was prepped and draped as per protocol. Next, 1% lidocaine was used for local anesthesia. An incision was made directly over the previous surgical site and carried down to the level of the generator. The generator was explanted. The leads were freed. Partial capsulectomy was performed. Access was obtained in the left axillary vein and via this coronary sinus catheter was placed. Then the sheath was placed. Coronary sinus was cannulated. Venogram was performed. He had extremely diminutive anterior veins, lateral veins, but he had a large posterolateral vein. An LV lead was placed with LV lead tip in the lateral position in an OCCITAN [address] [employer] LV lead was a model #1458QL, 75 cm in length, and serial number [id number]. The pacing impedance was 890 ohms, pacing threshold 0.8 v at 0.5 milliseconds, 10 V test negative on the tip, but from the proximal pole diaphragmatic stimulation was noted. The sheath was removed. The lead was secured to the underlying pectoralis muscle. The old generator was explanted. The new generator was implanted. The old generator was a [employer] model number [id number], serial #[id number]. The new generator was a [employer] model number [id number], serial #[id number]. Leads and generator were then placed in subfascial pocket. The wound was closed in 3 layers and dressed per protocol. The device was programmed programming and Bi-V pacing with an LV offset of 60 milliseconds. The pacing from the distal pole was provided. The patient tolerated the procedure well without any acute complications. MMODL / IJN: [id number] /
[2018-06-20] MEDS: ceFAZolin IN SWFI 2 GM/20 ML SYRINGE IVP SCH ×3 (02:43→11:52)
[2018-06-20] MEDS: HYDROcodone/APAP 5-325MG 1 EACH TAB PO PRN (02:47)
[2018-06-20] MEDS ORDERED: LEVOTHYROXINE 100 MCG TAB PO SCH (06:30)
[2018-06-20 07:03] LABS: Glucose,Whole Blood 68 mg/dL (75-99)
[2018-06-20 07:25] LABS: Glucose,Whole Blood 85 mg/dL (75-99)
--- NOTE | 2018-06-20 07:56 | P.DS ---
Providers Attending physician: Edu Carrera Primary care physician: [facility] Course: Patient is doing well. Mild tenderness over the ICD site. No hematoma. 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 with hospitalizations for heart failure, underlying left bundle branch block Severe LV dysfunction, upgrade to a biventricular ICD yesterday ICD site is healing well no hematoma minimal bruising Suggest he may go home on his current medications without any changes after completion of IV antibiotics and device interrogation this morning As well as chest x-ray The office in 5 days and see me again in about 2-3 months Patient Condition at Discharge: Stable Plan - Discharge Summary Discharge Rx Participant: No New Discharge Prescriptions: Continue RX: Aspirin EC [Ecotrin Low Dose] 81 mg PO DAILY RX: Allopurinol [Zyloprim] 100 mg PO DAILY RX: Cholecalciferol [Vitamin D3] 1,000 unit PO DAILY RX: Levothyroxine Sodium [Synthroid] 100 mcg PO DAILY RX: Furosemide [Lasix] 40 mg PO BID #60 RX: Carvedilol [Coreg] 3.125 mg PO BID RX: Amiodarone [Cordarone] 100 mg PO DAILY #90 tab RX: Sacubitril/Valsartan [Entresto 24 mg-26 mg Tablet] 1 each PO BID #60 tablet RX: glipiZIDE [Glucotrol] 5 mg PO AC-BID Discharge Medication List RX: Aspirin EC [Ecotrin Low Dose] 81 mg PO DAILY 01/31/15 [History] RX: Allopurinol [Zyloprim] 100 mg PO DAILY 08/14/15 [History] RX: Cholecalciferol [Vitamin D3] 1,000 unit PO DAILY 06/22/17 [History] RX: Levothyroxine Sodium [Synthroid] 100 mcg PO DAILY 06/22/17 [History] RX: Furosemide [Lasix] 40 mg PO BID #60 06/26/17 [Rx] RX: Carvedilol [Coreg] 3.125 mg PO BID 05/27/18 [History] RX: Amiodarone [Cordarone] 100 mg PO DAILY #90 tab 05/29/18 [Rx] RX: Sacubitril/Valsartan [Entresto 24 mg-26 mg Tablet] 1 each PO BID #60 tablet 05/30/18 [Rx] RX: glipiZIDE [Glucotrol] 5 mg PO AC-BID 06/14/18 [History] Follow up Appointment(s)/Referral(s): Edu Carrera MD [STAFF PHYSICIAN] - 1 Week (Follow-up in device clinic in [address] Johnston in 3 months No change in medications, continue all home medications as before) Activity/Diet/Wound Care/Special Instructions: PATIENT EDUCATION MATERIAL Instructions following a heart rhythm device implant. 1. Keep dressing DRY for 5 DAYS. You may cover the area with Saran or Cling Wrap, prior to a shower. 2. The dressing will be removed in the Device Clinic at [facility]. Absorbable sutures were used to close the wound. 3. Avoid raising the left arm above the shoulder level. 4 week restriction 4. Avoid arm movements, like backscratching, rubbing the head, or pulling on a cord. 4 weeks restriction 5. Gentle range of motion movements of the shoulder, closest to the incision should be performed to avoid a frozen shoulder. (Pendulum exercises of the shoulder) 6. The opposite arm may be used freely. 7. Avoid driving for 7 days. 8. Avoid activities such as golfing, swimming, weed whacking, lifting more than 10 pounds weight, bowling, gymnastics and weight training/lifting. (6 weeks restriction) 9. Activities such as wood chopping with an axe, pull-ups in the gymnasium, power lifting, arc-welding, being close to home induction cooktops will always be a problem. 10. Arm sling is only a reminder not to raise the arm above the head. You do not need to keep the arm completely immobilized. Your free to move the arm and use it and for normal activities. In case of any problems, please call [facility], [facility], @ [phone], Attention: Device Clinic Device clinic follow-up in 5 days Follow-up with primary punch hand in 2-3 months
[2018-06-20 08:13] VITALS: RESP 18
[2018-06-20] MEDS: FUROSEMIDE 40 MG TAB PO SCH (08:34)
[2018-06-20] MEDS: glipiZIDE 5 MG TAB PO SCH (08:34)
[2018-06-20] MEDS: SACUBITRIL/VALSARTAN 24 MG-26 MG TABLET PO SCH (08:34)
[2018-06-20] MEDS: CARVEDILOL 3.125 MG TAB PO SCH (08:34)
[2018-06-20] MEDS ORDERED: AMIODARONE 100 MG TAB PO SCH (09:00)
[2018-06-20] MEDS ORDERED: ALLOPURINOL 100 MG TAB PO SCH (09:00)
[2018-06-20] MEDS ORDERED: ASPIRIN 81 MG PO SCH (09:00)
--- NOTE | 2018-06-20 09:38 | XR ---
EXAMINATION TYPE: XR chest 2V DATE OF EXAM: 06/20/2018 COMPARISON: Prior chest x-ray 05/29/2018 HISTORY: Lead placement check TECHNIQUE: Frontal and lateral views of the chest are obtained. FINDINGS: Generator is present in the left pectoral region. There has been interval placement of a l ead within the coronary sinus. No evident pneumothorax. Patient is post median sternotomy. Heart timo ins enlarged. Interstitium is increased. Right sided Port-A-Cath is stable, distal tip coursing to th e level within the superior vena cava. Suspect pseudotumor present on the lateral exam. There is blun ting the posterior costophrenic angle suggestive of small effusions. Stable leads in the right atrium and ventricle. IMPRESSION: No evident complication status post lead placement.
[2018-06-20] MEDS: LACTATED RINGERS 1,000 ML IV SCH (10:09)
[2018-06-20 11:46] VITALS: BP 119/68; PULSE 61; TEMP 97.4
== END 2018-06-20 12:30 | disposition home or self-care (01) ==
LOC: CATHEP 09:02 → 3OBS 14:34 → CATHEP 06-20 12:30
PROVIDERS: ATTEND Internal Medicine Clinical Cardiac Electrophysiology
DX: I25.5 Ischemic cardiomyopathy (principal); I44.7 Left bundle-branch block, unspecified; Z45.02 Encounter for adjustment and management of automatic implantable cardiac defibrillator; I25.10 Atherosclerotic heart disease of native coronary artery without angina pectoris; I13.2 Hypertensive heart and chronic kidney disease with heart failure and with stage 5 chronic kidney disease, or end stage renal disease; E11.22 Type 2 diabetes mellitus with diabetic chronic kidney disease; N18.5 Chronic kidney disease, stage 5; I50.22 Chronic systolic (congestive) heart failure; F17.210 Nicotine dependence, cigarettes, uncomplicated; E07.9 Disorder of thyroid, unspecified; E78.5 Hyperlipidemia, unspecified; Z95.1 Presence of aortocoronary bypass graft; Z79.84 Long term (current) use of oral hypoglycemic drugs; Z79.82 Long term (current) use of aspirin; Z79.890 Hormone replacement therapy; Z79.899 Other long term (current) drug therapy
CPT/HCPCS: 33225; 33264; 71046; C1769 ×2; C1892; C1730; C1900; C1882; J2250; J0690 ×3; J2001; J3010; J2704; Q9966; 33249

== ENCOUNTER → 2018-07-06 | Outpatient (CLI) | payer MEDICARE ==
--- NOTE | 2018-07-06 16:39 | US ---
EXAMINATION TYPE: US kidneys/renal and bladder DATE OF EXAM: 07/06/2018 COMPARISON: US CLINICAL HISTORY: N18.3 CKD. EXAM MEASUREMENTS: Right Kidney: 9.7 x 5.6 x 4.7 cm Left Kidney: 9.6 x 5.3 x 4.3 cm Post Void Residual Volume: 97.8 mL Right Kidney: mid cortical simple cyst = 3.0 x 3.6 x 3.1cm Left Kidney: superior simple cortical cyst = 4.7 x 3.8 x 3.8cm Bladder: wnl Bilateral Jets seen: small left jet seen within 5 minute observation Normal Post Void Residual: No IMPRESSION: 1. Bilateral simple renal cysts. 2. Left ureteral jet identified. Right ureteral jet not identified.
== END ==
LOC: RADUSWWP 07:59
PROVIDERS: ATTEND Internal Medicine
DX: N28.1 Cyst of kidney, acquired (principal); Z96.0 Presence of urogenital implants
CPT/HCPCS: 76770

== ENCOUNTER → 2018-08-14 | Outpatient (CLI) | payer MEDICARE ==
--- NOTE | 2018-08-14 14:11 | XR ---
EXAMINATION TYPE: XR chest 2V DATE OF EXAM: 08/14/2018 COMPARISON: Prior chest x-ray 06/20/2018, CT chest 06/23/2017 HISTORY: Pleural effusion, history of lymphoma, abnormal chest x-ray TECHNIQUE: Frontal and lateral views of the chest are obtained. FINDINGS: Patient is post median sternotomy and rotated. Right-sided Port-A-Cath is in place, cathet er coursing to the level of the superior vena cava. Generator is in left pectoral region, intracardia c leads are present in the right atrium, ventricle, coronary sinus. No evident pneumothorax. There is persistent blunting of the left costophrenic angle. Interstitium is increased. Cardiac mediastinal s ilhouette, pulmonary vascularity and gary are stable. Calcified nodule present in the left upper lobe . Bones are stable. Superior sternal wire is fractured. Aorta is dense.. Pseudotumor no longer eviden t. There is underlying emphysema. IMPRESSION: Resolution of pseudotumor. There is chronic interstitial lung disease and cardiomegaly. Chronic pleural reaction suspected at the left lung base.
== END | disposition home or self-care (01) ==
LOC: RADXRMAIN 10:08
PROVIDERS: ATTEND Internal Medicine Sleep Medicine
DX: J84.9 Interstitial pulmonary disease, unspecified (principal); I51.7 Cardiomegaly
CPT/HCPCS: 71046

== ENCOUNTER → 2018-08-14 | Outpatient (CLI) | payer MEDICARE ==
[2018-08-14 18:14] LABS: Albumin 3.7 g/dL (3.80-4.90); Albumin/Globulin Ratio 2.31 (1.20-2.10); Anion Gap 8.8 mmol/L (4.00-12.00); Calcium 8.6 mg/dL (8.7-10.3); Carbon Dioxide 29.2 mmol/L (21.6-31.8); Globulin 1.6 g/dL (2.1-3.7); Potassium 4.6 mmol/L (3.5-5.5); Total Bilirubin 0.4 mg/dL (0.2-1.2); Total Protein 5.3 g/dL (6.2-8.2)
== END | disposition home or self-care (01) ==
LOC: LABWHC1 09:08
PROVIDERS: ATTEND Nurse Practitioner Family
DX: N18.3 Chronic kidney disease, stage 3 (moderate) (principal)
CPT/HCPCS: 36415; 80053

== ENCOUNTER → 2018-08-31 | Outpatient (CLI) | payer MEDICARE ==
[2018-08-31 16:51] LABS: Anisocytosis Slight; Appearance,Urine Clear (Clear); Basophils # (A) 0.1 k/uL (0-0.2); Basophils % (A) 1 %; Bilirubin,Urine Negative (Negative); Blood,Urine Negative (Negative); Color,Urine Light Yellow; Eosinophils # (A) 0.5 k/uL (0-0.7); Eosinophils % (A) 5 %; Glucose,Urine (UA) Negative (Negative); HCT 41.9 % (39.0-53.0); HGB 13.5 gm/dL (13.0-17.5); Hypochromasia Slight; Ketones,Urine Negative (Negative); Leukocyte Esterase,Urine Negative (Negative); Lymphocytes # (A) 2.1 k/uL (1.0-4.8); Lymphocytes % (A) 22 %; MCH 27.1 pg (25.0-35.0); MCHC 32.3 g/dL (31.0-37.0); MCV 83.9 fL (80.0-100.0); Mean Platelet Volume 7.1; Monocytes # (A) 0.6 k/uL (0-1.0); Monocytes % (A) 6 %; Neutrophils # (A) 6.4 k/uL (1.3-7.7); Neutrophils % (A) 66 %; Nitrite,Urine Negative (Negative); PH, Urine 5.5 (5.0-8.0); Platelet Count 219 k/uL (150-450); Protein,Urine Negative (Negative); RBC 4.99 m/uL (4.30-5.90); RDW 16.6 % (11.5-15.5); Specific Gravity,Urine 1.008 (1.001-1.035); Urobilinogen,Urine <2.0 mg/dL (<2.0); WBC 9.7 k/uL (3.8-10.6)
[2018-09-01 01:48] LABS: Iron Saturation 16.36 (15.00-50.00)
[2018-09-01 01:54] LABS: Parathyroid Hormone Intact 150.7 pg/mL (14.0-72.0)
[2018-09-01 01:58] LABS: Vitamin D 25 Hydroxy 32.1 ng/mL (30.0-100.0)
[2018-09-01 10:52] LABS: Albumin 4.2 g/dL (3.80-4.90); Albumin/Globulin Ratio 2.33 (1.20-2.10); Anion Gap 16.4 mmol/L (4.00-12.00); Calcium 9.3 mg/dL (8.7-10.3); Carbon Dioxide 23.6 mmol/L (21.6-31.8); Globulin 1.8 g/dL (2.1-3.7); Phosphorus 3.1 mg/dL (2.4-5.1); Potassium 4.5 mmol/L (3.5-5.5); Total Bilirubin 0.4 mg/dL (0.3-1.2)
== END | disposition home or self-care (01) ==
LOC: LABWHC1 16:00
PROVIDERS: ATTEND Nurse Practitioner Family
DX: N18.3 Chronic kidney disease, stage 3 (moderate) (principal); D63.1 Anemia in chronic kidney disease; N39.0 Urinary tract infection, site not specified; R80.9 Proteinuria, unspecified; E21.3 Hyperparathyroidism, unspecified; E55.9 Vitamin D deficiency, unspecified; M10.9 Gout, unspecified
CPT/HCPCS: 36415; 80053; 81003; 82306; 82570; 82728; 83540; 83550; 83735; 83970; 84100; 84156; 84550; 85025

== ENCOUNTER → 2019-02-14 | Outpatient (CLI) | payer MEDICARE ==
[2019-02-14 09:14] LABS: Anisocytosis Slight; HCT 42.8 % (39.0-53.0); HGB 13.7 gm/dL (13.0-17.5); MCH 27.5 pg (25.0-35.0); MCHC 31.9 g/dL (31.0-37.0); MCV 86.2 fL (80.0-100.0); Mean Platelet Volume 8.2; Platelet Count 224 k/uL (150-450); RBC 4.96 m/uL (4.30-5.90); WBC 8.7 k/uL (3.8-10.6)
[2019-02-14 10:26] LABS: Appearance,Urine Clear (Clear); Bilirubin,Urine Negative (Negative); Blood,Urine Trace (Negative); Color,Urine Light Yellow; Glucose,Urine (UA) Negative (Negative); Ketones,Urine Negative (Negative); Leukocyte Esterase,Urine Negative (Negative); Mucus,Urine Rare /hpf; Nitrite,Urine Negative (Negative); PH, Urine 5.5 (5.0-8.0); Protein,Urine Negative (Negative); RBC,Urine 6 /hpf (0-5); Specific Gravity,Urine 1.011 (1.001-1.035); Urobilinogen,Urine <2.0 mg/dL (<2.0); WBC,Urine 3 /hpf (0-5)
[2019-02-14 11:52] LABS: Iron Saturation 20.28 (15.00-50.00)
[2019-02-14 11:53] LABS: Albumin 4.4 g/dL (3.80-4.90); Albumin/Globulin Ratio 2.44 (1.60-3.17); Anion Gap 13.9 mmol/L (4.00-12.00); Calcium 9.2 mg/dL (8.7-10.3); Carbon Dioxide 21.1 mmol/L (21.6-31.8); Globulin 1.8 g/dL (1.6-3.3); Magnesium 2.4 mg/dL (1.5-2.4); Phosphorus 4.4 mg/dL (2.4-5.1); Potassium 5.3 mmol/L (3.5-5.5); Total Bilirubin 0.3 mg/dL (0.3-1.2); Total Protein 6.2 g/dL (6.2-8.2); Uric Acid 8.6 mg/dL (3.7-8.7)
[2019-02-14 12:01] LABS: Vitamin D 25 Hydroxy 35.8 ng/mL (30.0-100.0)
[2019-02-14 18:22] LABS: Total Protein,Urine Random 7.6 mg/dL (0.0-13.5)
[2019-02-14 18:23] LABS: Creatinine,Urine Random 38.2 mg/dL
== END | disposition home or self-care (01) ==
LOC: LABWHC1 07:33
PROVIDERS: ATTEND Nurse Practitioner Family
DX: E55.9 Vitamin D deficiency, unspecified (principal); E21.3 Hyperparathyroidism, unspecified; N18.3 Chronic kidney disease, stage 3 (moderate); D63.1 Anemia in chronic kidney disease; N39.0 Urinary tract infection, site not specified; R80.9 Proteinuria, unspecified; M10.9 Gout, unspecified
CPT/HCPCS: 36415; 80053; 81001; 82306; 82570; 82728; 83540; 83550; 83735; 83970; 84100; 84156; 84550; 85027

== ENCOUNTER 2019-02-16 19:51 | Inpatient (IN) | payer MEDICARE ==
[2019-02-16 20:57] LABS: Anisocytosis Slight; Basophils # (A) 0.1 k/uL (0-0.2); Basophils % (A) 0 %; Eosinophils # (A) 0.2 k/uL (0-0.7); Eosinophils % (A) 1 %; HCT 42.3 % (39.0-53.0); HGB 13.4 gm/dL (13.0-17.5); Lymphocytes # (A) 1.2 k/uL (1.0-4.8); Lymphocytes % (A) 6 %; MCH 26.8 pg (25.0-35.0); MCHC 31.6 g/dL (31.0-37.0); MCV 84.8 fL (80.0-100.0); Mean Platelet Volume 7.2; Monocytes # (A) 0.9 k/uL (0-1.0); Monocytes % (A) 4 %; Neutrophils # (A) 17.3 k/uL (1.3-7.7); Neutrophils % (A) 87 %; Platelet Count 247 k/uL (150-450); RBC 4.99 m/uL (4.30-5.90); RDW 16.4 % (11.5-15.5); WBC 19.8 k/uL (3.8-10.6)
--- NOTE | 2019-02-16 21:07 | XR ---
EXAMINATION TYPE: XR chest 2V DATE OF EXAM: 02/16/2019 COMPARISON: 08/14/2013 HISTORY: 83-year-old male with chest pain and shortness of breath TECHNIQUE: AP and lateral views FINDINGS: Left anterior chest wall ICD generator with right atrial, right ventricular, and coronary sinus leads . Median sternotomy wires are present with post-CABG clips. Heart mildly enlarged with diffuse inters titial densities. No sizable pleural effusion. Right anterior chest wall injection port with catheter tip obscured by the multiple ICD leads. IMPRESSION: Mild cardiomegaly with diffuse interstitial changes, possible CHF with mild pulmonary vascular conges tion.
[2019-02-16 21:11] LABS: INR 1.1 (<1.2); Partial Thromboplastin Time 24.7 sec (22.0-30.0); Prothrombin Time 11.8 sec (9.0-12.0)
[2019-02-16 21:16] LABS: D-Dimer 1.28 mg/L FEU (<0.60)
[2019-02-16 21:17] LABS: Albumin 4.2 g/dL (3.5-5.0); Calcium 9.2 mg/dL (8.4-10.2); Potassium 5.6 mmol/L (3.5-5.1); Total Bilirubin 0.8 mg/dL (0.2-1.3); Total Protein 6.7 g/dL (6.3-8.2)
[2019-02-16] MEDS ORDERED: DEXTROSE 50% SYRINGE 50 ML IVP STA (21:31)
[2019-02-16] MEDS ORDERED: INSULIN REGULAR 100 UNIT/ML VIAL IV ONE (21:32)
[2019-02-16] MEDS ORDERED: SODIUM CHLORIDE 0.9% 500 ML 250 ML IV ONE (22:03)
[2019-02-16] MEDS ORDERED: LEVOFLOXACIN 750MG-D5W PMX 750 MG in DEXTROSE/WATER 1 150ML.BAG IVPB STA (23:06)
[2019-02-16] MEDS ORDERED: VANCOMYCIN 1,000 MG in SODIUM CHLORIDE 0.9% 250 ML IVPB STA (23:06)
[2019-02-16] MEDS ORDERED: VANCOMYCIN IV PER PHARMACY 1 EACH MISC MISCELLANE PRN (23:08)
[2019-02-16] MEDS: VANCOMYCIN 1,500 MG in SODIUM CHLORIDE 0.9% 250 ML IVPB STA (23:59)
--- NOTE | 2019-02-17 00:03 | ED ---
Chest Pain HPI - General Chief Complaint: Chest Pain Stated Complaint: WILL HILL Time Seen by Provider: 02/16/19 21:05 Source: patient, family Mode of arrival: wheelchair Limitations: no limitations - History of Present Illness Initial Comments: The patient is an 83-year-old male who presents to the emergency department with complaint of chest pain and shortness of breath. The symptoms started last night and worsened today. The patient is reporting a substernal chest pressure without radiation. He also admits to shortness of breath especially upon ex ertion. He has had a persistent cough without phlegm production. No reported fevers or chills. He denies chest palpitations. No abdominal pain. Does admits to nausea with an episode of vomiting. Denies any changes in his bowel or bladder habits. Does admit to bilateral lower extremity swelling. Swelling has been worse than normal. The patient does have a history of congestive heart failure and is on Lasix 40mg twice a day. States he has been taking his medications as directed and has not missed any doses. He denies any calf pain. No history of DVTs or PEs. Last travel was in December when he flew home from [place]. There are no other alleviating, precipitating or modifying factors - Related Data Home Medications Medication Instructions Recorded Confirmed Aspirin EC [Ecotrin Low Dose] 81 mg PO DAILY 01/31/15 02/16/19 Allopurinol [Zyloprim] 100 mg PO DAILY 08/14/15 02/16/19 Cholecalciferol [Vitamin D3 (25 1,000 unit PO DAILY 06/22/17 02/16/19 Mcg = 1000 Iu)] Levothyroxine Sodium [Synthroid] 100 mcg PO DAILY 06/22/17 02/16/19 glipiZIDE [Glucotrol] 5 mg PO QAM 06/14/18 02/16/19 Sacubitril/Valsartan [Entresto 24 1 tab PO BID 02/16/19 02/16/19 mg-26 mg Tablet] Previous Rx's Medication Instructions Recorded Furosemide [Lasix] 40 mg PO BID #60 06/26/17 Amiodarone [Cordarone] 100 mg PO DAILY #90 tab 05/29/18 Allergies Allergy/AdvReac Type Severity Reaction Status Date / Time No Known Allergies Allergy Verified 02/16/19 20:38 Review of Systems ROS Statement: Those systems with pertinent positive or pertinent negative responses have been documented in the HPI. ROS Other: All systems not noted in ROS Statement are negative. EKG Findings - EKG Comments: EKG Findings:: EKG demonstrates a ventricularly paced rhythm with a rate of 108. KS interval 0 QRS 148. QTC of 530. There are no acute ST segment elevations or depressions. Does not meet Amita's criteria. 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 Past Anesthesia/Blood Transfusion Reactions: No Reported Reaction Type of Cardiac Device: Permanent Pacemaker, AICD Device Placement Date:: 2004 implant/2014 gen change Past Psychological History: No Psychological Hx Reported Smoking Status: Former smoker Past Alcohol Use History: None Reported Past Drug Use History: None Reported - Past Family History Mother Family Medical History: No Reported History Additional Family Medical History / Comment(s): Mother was healthy and lived to be 86yrs old. Brother(s) Family Medical History: Cancer Father Family Medical History: Cancer Additional Family Medical History / Comment(s): Father had bone cancer. He also had "heart problems." He at the age of 82 yrs. General Exam Limitations: no limitations General appearance: alert, in no apparent distress Head exam: Present: atraumatic, normocephalic, normal inspection Eye exam: Present: normal appearance, PERRL, EOMI. Absent: scleral icterus, c onjunctival injection, periorbital swelling ENT exam: Present: normal exam, mucous membranes moist Neck exam: Present: normal inspection. Absent: tenderness, meningismus, lymphadenopathy Respiratory exam: Present: wheezes, rales. Absent: stridor Cardiovascular Exam: Present: normal rhythm, tachycardia, normal heart sounds. Absent: systolic murmur, diastolic murmur, rubs, gallop, clicks, JVD GI/Abdominal exam: Present: soft, normal bowel sounds. Absent: distended, ten derness, guarding, rebound, rigid Extremities exam: Present: normal inspection, full ROM, normal capillary refill, pedal edema. Absent: tenderness, joint swelling, calf tenderness Back exam: Present: normal inspection Neurological exam: Present: alert, oriented X3, CN II-XII intact Psychiatric exam: Present: normal affect, normal mood Skin exam: Present: warm, dry, intact, normal color. Absent: rash Course Vital Signs 02/16/19 02/16/19 02/16/19 20:00 20:13 20:20 Temperature 97.6 F Pulse Rate 129 H 107 H Respiratory 22 15 Rate Blood Pressure 72/42 98/57 94/46 O2 Sat by Pulse 94 L Oximetry 02/16/19 02/16/19 02/16/19 20:30 20:40 20:50 Temperature Pulse Rate 117 H 116 H Respiratory 24 30 H Rate Blood Pressure 94/46 97/49 92/57 O2 Sat by Pulse 97 96 Oximetry 02/16/19 02/16/19 02/16/19 21:00 21:06 21:10 Temperature Pulse Rate 112 H 87 111 H Respiratory 17 16 33 H Rate Blood Pressure 92/57 95/53 83/46 O2 Sat by Pulse 97 97 96 Oximetry 02/16/19 02/16/19 02/16/19 21:20 21:30 21:40 Temperature Pulse Rate 108 H 107 H 108 H Respiratory 21 19 17 Rate Blood Pressure 80/48 80/48 95/53 O2 Sat by Pulse 96 96 96 Oximetry 02/16/19 02/16/19 02/16/19 21:50 22:00 22:06 Temperature Pulse Rate 105 H 105 H 86 Respiratory 6 L 18 18 Rate Blood Pressure 81/54 81/54 88/56 O2 Sat by Pulse 96 97 98 Oximetry 02/16/19 02/16/19 02/16/19 22:10 22:20 22:30 Temperature Pulse Rate 98 96 81 Respiratory 20 17 22 Rate Blood Pressure 65/39 85/49 85/49 O2 Sat by Pulse 96 96 Oximetry 02/16/19 02/16/19 02/16/19 22:40 22:50 23:00 Temperature Pulse Rate 83 81 81 Respiratory 18 18 18 Rate Blood Pressure 88/56 84/43 84/43 O2 Sat by Pulse Oximetry 02/16/19 02/16/19 02/16/19 23:10 23:20 23:30 Temperature Pulse Rate 71 74 79 Respiratory 14 19 Rate Blood Pressure 87/45 91/48 91/48 O2 Sat by Pulse 97 98 Oximetry 02/16/19 02/16/19 02/17/19 23:40 23:50 00:00 Temperature Pulse Rate 61 80 80 Respiratory Rate Blood Pressure 100/45 88/40 88/40 O2 Sat by Pulse 97 98 97 Oximetry 02/17/19 02/17/19 02/17/19 00:10 00:20 00:30 Temperature Pulse Rate 78 87 80 Respiratory 15 Rate Blood Pressure 83/47 84/47 84/47 O2 Sat by Pulse 96 96 96 Oximetry 02/17/19 02/17/19 02/17/19 00:40 00:50 01:00 Temperature Pulse Rate 78 78 80 Respiratory 19 17 15 Rate Blood Pressure 93/41 89/50 89/50 O2 Sat by Pulse 97 96 96 Oximetry 02/17/19 02/17/19 02/17/19 01:10 01:20 01:30 Temperature Pulse Rate 79 79 65 Respiratory 16 18 19 Rate Blood Pressure 95/55 101/64 101/64 O2 Sat by Pulse 95 98 97 Oximetry 02/17/19 02/17/19 01:40 01:50 Temperature Pulse Rate 78 75 Respiratory 33 H 14 Rate Blood Pressure 96/51 90/57 O2 Sat by Pulse 95 97 Oximetry Chest Pain MDM - Differential Diagnosis ACS, Pneumonia Acute kidney injury, chronic kidney disease, acute exacerbation of CHF - MDM Upon arrival the patient was placed into room 3. He was hooked up to continuous pulse ox and cardiac monitoring. He was placed on 2 L of oxygen via nasal cannula. A 12-lead EKG was performed. IV access was established. The patient was hypotensive upon arrival and therefore was given a 250 mL bolus of 0.9% normal saline. Laboratory studies were conducted. The patient did have a chest x-ray performed. Upon return results the patient's labs are significant for white count of 19.8, d-dimer 1.2, potassium of 5.6, and a creatinine of 3.9. Chest x-ray does demonstrate volume overload. I did discuss the results with the patient. I did discuss the diagnosis, differential and treatment options. I did obtain blood cultures and started the patient on Levaquin and Vanco for his elevated white blood cell count with productive cough. I also provided the patient with a amp of dextrose and 10 units of IV insulin because of his hyperkalemia. Repeat lytes will be drawn in 4 hours. I called and discussed the case with Dr. Dalton. He did accept admission of the patient and requested he be placed in the ICU. I did call discuss case with Dr. Rice who did accept admission. He did recommend a central line. I discussed central line placement with the patient who refused the procedure. He is aware of the risks of not having the access or starting vasopressors. He is of sound mind and capable of making his own decisions. His family at bedside agrees with his decision. I did call and discuss this with Dr. Rice. The patient's blood pressure did improve and remained in the mid 90s systolic. I discussed heparinizing the patient with Dr. Dalton but he recommended against it. The patient will have a perfusion scan done in the morning. I will consult Dr. Vaz from nephrology. I will also consult cardiology and the patient's test technician, Dr. Barrios. The patient was reevaluated upon multiple occasions. He remained in stable condition and was transported to the floor. Disposition Clinical Impression: Chest pain, Systolic CHF, acute on chronic, Hypotension, Acute renal failure (ARF), Chronic renal failure Disposition: ADMITTED IP TO THIS HOSP Condition: Serious Is patient prescribed a controlled substance at d/c from ED?: No Decision to Admit Reason: Admit from EC Decision Date: 02/17/19 Decision Time: 00:03
[2019-02-17] MEDS ORDERED: NALOXONE 0.4 MG/ML 1 ML VIAL IV PRN (00:05)
[2019-02-17] MEDS: VANCOMYCIN 1,500 MG in SODIUM CHLORIDE 0.9% 250 ML IVPB STA (01:02)
[2019-02-17 01:41] LABS: Appearance,Urine Clear (Clear); Bilirubin,Urine Negative (Negative); Blood,Urine Negative (Negative); Color,Urine Yellow; Glucose,Urine (UA) Negative (Negative); Hyaline Casts,Urine 117 /lpf (0-2); Ketones,Urine Negative (Negative); Leukocyte Esterase,Urine Trace (Negative); Mucus,Urine Rare /hpf; Nitrite,Urine Negative (Negative); Protein,Urine Trace (Negative); RBC,Urine 3 /hpf (0-5); Specific Gravity,Urine 1.013 (1.001-1.035); Squamous Epithelial Cell,Urine <1 /hpf (0-4); Urobilinogen,Urine <2.0 mg/dL (<2.0); WBC,Urine 6 /hpf (0-5)
[2019-02-17] MEDS ORDERED: VANCOMYCIN IV PER PHARMACY 1 EACH MISC MISCELLANE PRN (01:46)
[2019-02-17] MEDS ORDERED: TEMAZEPAM 15 MG CAP PO PRN (01:48)
[2019-02-17] MEDS ORDERED: HYDROmorphone 0.5 MG/0.5 ML SYRINGE IVP PRN (01:48)
[2019-02-17] MEDS ORDERED: HYDROcodone/APAP 5-325MG 1 EACH TAB PO PRN (01:48)
[2019-02-17] MEDS ORDERED: ALPRAZolam 0.25 MG TAB PO PRN (01:48)
[2019-02-17 02:31] LABS: Anisocytosis Slight; Basophils # (A) 0.1 k/uL (0-0.2); Basophils % (A) 0 %; Eosinophils # (A) 0.1 k/uL (0-0.7); Eosinophils % (A) 0 %; HCT 36.6 % (39.0-53.0); HGB 11.7 gm/dL (13.0-17.5); Lymphocytes # (A) 1.8 k/uL (1.0-4.8); Lymphocytes % (A) 10 %; MCH 26.9 pg (25.0-35.0); MCHC 31.9 g/dL (31.0-37.0); MCV 84.3 fL (80.0-100.0); Mean Platelet Volume 7.9; Monocytes # (A) 0.7 k/uL (0-1.0); Monocytes % (A) 4 %; Neutrophils # (A) 14.4 k/uL (1.3-7.7); Neutrophils % (A) 84 %; Platelet Count 190 k/uL (150-450); RBC 4.35 m/uL (4.30-5.90); RDW 16.5 % (11.5-15.5); WBC 17.2 k/uL (3.8-10.6)
[2019-02-17 02:33] LABS: Calcium 8.5 mg/dL (8.4-10.2); Potassium 5.4 mmol/L (3.5-5.1)
[2019-02-17 02:50] LABS: Glucose,Whole Blood 95 mg/dL (75-99)
[2019-02-17] MEDS: PANTOPRAZOLE 40 MG/10 ML VIAL IVP SCH ×2 (03:47→08:37)
--- NOTE | 2019-02-17 06:43 | XR ---
EXAMINATION TYPE: XR chest 1V portable DATE OF EXAM: 02/17/2019 HISTORY: chf. REFERENCE: Previous study dated 02/16/2019. FINDINGS: There has been a midline sternotomy. There is a multilead pacing device in place on the lef t. There is a Port-A-Cath in place via a right subclavian approach. Its tip is in the right atrium. There is dense consolidation at the left lung base. There is a small left effusion. There is mild vas cular congestion and mild interstitial change. IMPRESSION: 1. LEFT BASILAR AIRSPACE DISEASE. 2. SMALL LEFT EFFUSION. 3. I COULD NOT EXCLUDE A MILD DEGREE OF HEART FAILURE.
[2019-02-17 06:46] LABS: Anisocytosis Slight; HCT 35.1 % (39.0-53.0); HGB 11.3 gm/dL (13.0-17.5); MCH 27.4 pg (25.0-35.0); MCHC 32.2 g/dL (31.0-37.0); Mean Platelet Volume 8.6; Platelet Count 184 k/uL (150-450); RBC 4.14 m/uL (4.30-5.90); RDW 16.6 % (11.5-15.5); WBC 14.3 k/uL (3.8-10.6)
[2019-02-17 07:04] LABS: Potassium 4.9 mmol/L (3.5-5.1)
[2019-02-17 07:05] LABS: Calcium 8.4 mg/dL (8.4-10.2)
[2019-02-17 07:20] LABS: Glucose,Whole Blood 77 mg/dL (75-99)
[2019-02-17] MEDS: LEVOTHYROXINE 100 MCG TAB PO SCH (07:21)
[2019-02-17] MEDS ORDERED: FUROSEMIDE 10 MG/ML 4 ML VIAL IV STA (07:59)
--- NOTE | 2019-02-17 08:23 | HP ---
HISTORY AND PHYSICAL DATE OF SERVICE: 02/16/2019. CHIEF COMPLAINT: Chest pain, shortness of breath. HISTORY OF PRESENT ILLNESS: This 83-year-old gentleman with a past medical history of multiple medical problems including history of CAD, history of atrial fibrillation, history of CHF, COPD, diabetes mellitus Type 2, hypertension, hyperlipidemia, myocardial infarction, history of CAD/CABG being followed by Dr. Carrera and Dr. Barrios in the outpatient setting, was complaining of cough and the patient also subsequently vomiting. The patient has shortness of breath and some chest pain as well. Because of multiple symptomatology, patient came to [facility] and admitted for further evaluation and treatment. The patient was found to have multiple lab abnormalities including creatinine which was elevated at 3.98. The patient's baseline creatinine was around 2. The patient has seen Nephrology previously. Lactic acid 2.2 and WBC 19.2. Influenza is negative. The patient's chest x-ray which was personally reviewed by me showed evidence of some fluid overload as well. There is no history of fever, rigors or chills. No history of headache, loss of consciousness, seizures. Patient being admitted for further evaluation and treatment. The patient has significant cough at this time. PAST MEDICAL HISTORY: History of CAD, history of CHF, COPD, diabetes mellitus Type 2, history of hypertension, history of liver disease, history of myocardial infarction, history of atrial fibrillation, history of CAD/CABG, cardiac catheterization. MEDICATIONS: Prior to admission home medications are: 1. Glucotrol 5 mg q.a.m. 2. Entresto 1 p.o. b.i.d. 3. Synthroid 100 mcg daily. 4. Lasix 40 mg p.o. b.i.d. 5. Vitamin D 3000 daily. 6. Ecotrin 81 mg p.o. daily. 7. Cordarone 100 mg p.o. daily. 8. Zyloprim 100 mg daily. ALLERGIES: None. FAMILY HISTORY: History of bone cancer in the family and heart problems in the family. SOCIAL HISTORY: Previous history of smoking. No history of current smoking or alcohol intake. REVIEW OF SYSTEMS: ENT: No diminished vision. No diminished hearing. CARDIOVASCULAR: As mentioned earlier. GI no nausea or vomiting. no dysuria. CENTRAL NERVOUS SYSTEM: No numbness or weakness. ALLERGY/IMMUNOLOGY: No asthma or hayfever. MUSCULOSKELETAL as mentioned earlier. HEMATOLOGY/ONCOLOGY: No history of anemia. ENDOCRINE: Hypothyroidism. CONSTITUTIONAL: As mentioned earlier. DERMATOLOGY: Negative. RHEUMATOLOGY: Negative. PSYCHIATRY: As mentioned earlier. PHYSICAL EXAM: Patient is alert, oriented times three. Pulse is 129, blood pressure 72/42, respiratory rate 22, temperature 97.6, pulse ox 94% on room air. HEENT: Conjunctivae normal. Oral mucosa moist. NECK is jugular venous distention at the root of the neck. CARDIOVASCULAR system: S1, S2 muffled. Ejection systolic murmur. RESPIRATIONS: Breath sounds diminished in the bases. A few scattered rhonchi and crackles. ABDOMEN: Soft, nontender. No mass palpable. LEGS: No edema. No swelling. NERVOUS SYSTEM: Higher functions as mentioned earlier. Moves all four extremities. No focal motor or sensory deficits. LYMPHATICS: No lymph nodes palpable in the neck, axillae or groin. SKIN: No ulcer, rash or bleeding. JOINTS: No active deforming arthropathy. LABS: At this time shows WBC 19.8 and sodium is 141, potassium 5.6 and creatinine 3.98. Plasma lactic acid 2.2, alk phos 127. ASSESSMENT: 1. Shortness of breath and chest pain, possible congestive heart failure acute exacerbation with acute on chronic systolic dysfunction ejection fraction less than 20%. 2. Rule out bilateral pneumonia. 3. Hypotension possibly secondary dehydration and prerenal factors rule out cardiogenic shock. 4. Increased creatinine with acute on chronic renal failure with acute tubular necrosis. 5. Chronic kidney disease stage 3 baseline. 6. Increased lactic acid secondary to dehydration. 7. Increased WBC. 8. History atrial fibrillation. 9. History of coronary artery disease. 10.History of congestive heart failure. 11.History of chronic obstructive pulmonary disease. 12.Diabetes mellitus type 2. 13.Hypertension. 14.History of liver disease. 15.History of myocardial infarction. 16.History of hypothyroidism. 17.History of AICD. 18.History of coronary artery disease, coronary artery bypass grafting. 19.Remote history of nicotine dependence. 20.FULL CODE. RECOMMENDATIONS AND DISCUSSION: In this 83-year-old gentleman who presented with multiple complex medical issues, we will monitor the patient closely. Continue the current medications, management and symptomatic treatment. Otherwise, I recommend ICU management, ICU monitoring. Cautious IV fluids have been recommended. If the blood pressure is not improving, Levophed drip may be initiated. We will obtain cardiology consultation and nephrology consultation as well. Dr. Pool will be consulted. Empiric antibiotics also will be given. Patient was given vancomycin and Levaquin. We will hold off the blood pressure medications. Prognosis guarded. DVT prophylaxis. Prognosis guarded because of multiple complex medical issues. Further recommendations to follow. A copy of dictation is being forwarded to Dr. Barrios who is the primary physician. Pulmonary will be consulted for further evaluation and treatment. MMODL / IJN: [id number] /
[2019-02-17] MEDS: INSULIN ASPART (NovoLOG) 100 UNIT/ML VIAL SQ SCH ×4 (08:35→20:33)
[2019-02-17] MEDS: glipiZIDE 5 MG TAB PO SCH (08:36)
[2019-02-17] MEDS: HEPARIN SODIUM,PORCINE 5,000 UNIT/ML 1 ML VIAL SQ SCH ×2 (08:36→21:14)
[2019-02-17] MEDS: ALLOPURINOL 100 MG TAB PO SCH (08:36)
[2019-02-17] MEDS: ASPIRIN 81 MG PO SCH (08:36)
[2019-02-17] MEDS: FUROSEMIDE 10 MG/ML 4 ML VIAL IV SCH ×2 (08:36→21:12)
[2019-02-17] MEDS: AMIODARONE 100 MG TAB PO SCH (08:36)
[2019-02-17] MEDS: CHOLECALCIFEROL 1,000 UNIT TAB PO SCH (08:36)
[2019-02-17] MEDS ORDERED: AMIODARONE 100 MG TAB PO SCH (09:00)
--- NOTE | 2019-02-17 09:40 | P.CNPUL ---
History of Present Illness Consult date: 02/17/19 Requesting physician: Fernanda Dalton Reason for consult: dyspnea Chief complaint: Shortness of breath History of present illness: This is an 83-year-old white male with history of multiple medical problems including chronic atrial fibrillation, COPD, congestive heart failure, type 2 diabetes, hypertension, previous UT, previous CABG. Patient presented to the ER last night with 1 day history of shortness of breath and cough. Cough was nonproductive. No fever no chills no hemoptysis minimal vague chest pain. Upon presentation to the ER, patient was noted to be hypotensive, fluid boluses were given, patient was also noted to have atrial fibrillation, but with controlled rate, he was also noted to have acute on chronic renal failure, borderline elevated lactic acid of 2.2, WBC count was 19.2. Chest x-ray showed mostly interstitial edema, underlying pneumonia could not be entirely ruled out, hypotension responded to fluids, did not require any pressors. Because of the hypotension, patient was admitted to the ICU, and I was asked to see him on consultation. Today, the patient is feeling better, breathing easier, received a dose of Lasix earlier today, and responded quite well. Chest x-ray continues to show mild interstitial edema, no clear-cut evidence of pneumonia, but again it is not entirely ruled out. Clinically felt to be less likely. His BNP level was elevated. D-dimer was elevated, but felt to be nonspecific. And VQ scan was canceled. Patient is presently resting in bed, on 1 L nasal cannula, in no form of any distress. Review of Systems Constitutional: Denies weight loss, fevers chills, night sweats. Eyes: Denies diplopia blurred vision. Ears: Denies earache nose, mouth and throat: Denies sore throat, no nasal discharge, . Cardiovascular: Presently denies any chest pain, no palpitations, no orthopnea, no PND. Respiratory: As noted in HPI. Mostly shortness of breath however significantly improved in the last 24 hours Gastrointestinal: Has nausea vomiting abdominal pain melena or hematemesis. Genitourinary: Denied dysuria frequency urgency. Musculoskeletal: Denies arthralgia or myalgia. Integumentary: Denies any rashes Neurological: No headache no blurred vision no dizziness.. Psychiatric: Denies symptoms of active depression Endocrine: Denies heat or cold intolerance. Hematologic: Denies clotting bleeding or bruising. Past Medical History Past Medical History: Atrial Fibrillation, Coronary Artery Disease (CAD), Cancer, Heart Failure, COPD, Diabetes Mellitus, Hypertension, Liver Disease, Myocardial Infarction (UT), Thyroid Disorder Additional Past Medical History / Comment(s): See Dr Carrera's H&P,mantle cell lymphoma treated 9-10 years ago with chemo, hx pleural effusion L side with thoracentesis x2, sepsis, urinary retention, hepatitis in 1950 type unknown, diff swallowing, decreased kidney function Last Myocardial Infarction Date:: 1998 History of Any Multi-Drug Resistant Organisms: None Reported Past Surgical History: AICD, Coronary Bypass/CABG, Heart Catheterization, Pacemaker Additional Past Surgical History / Comment(s): PTCA, 1998 4 vessel CABG, cardioversion, L thoracentesis x2, colonoscopy, bone marrow bx, bilateral catara ct removal, mediport. Past Anesthesia/Blood Transfusion Reactions: No Reported Reaction Type of Cardiac Device: Permanent Pacemaker, AICD Device Placement Date:: 2004 implant/2017 gen change Past Psychological History: No Psychological Hx Reported Additional Psychological History / Comment(s): Lives in the family home with his . 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 Denies any recent travels. No recent animal exposures. Uses cane to ambulate. Pt drives. Smoking Status: Former smoker Past Alcohol Use History: None Reported Additional Past Alcohol Use History / Comment(s): Pt smoked from about 1955 until 1994. 1 ppd Past Drug Use History: None Reported - Past Family History Mother Family Medical History: No Reported History Additional Family Medical History / Comment(s): Mother was healthy and lived to be 86yrs old. Brother(s) Family Medical History: Cancer Father Family Medical History: Cancer Additional Family Medical History / Comment(s): Father had bone cancer. He also had "heart problems." He at the age of 82 yrs. Medications and Allergies Home Medications Medication Instructions Recorded Confirmed Type Aspirin EC [Ecotrin Low Dose] 81 mg PO DAILY 01/31/15 02/16/19 History Allopurinol [Zyloprim] 100 mg PO DAILY 08/14/15 02/16/19 History Cholecalciferol [Vitamin D3 (25 1,000 unit PO DAILY 06/22/17 02/16/19 History Mcg = 1000 Iu)] Levothyroxine Sodium [Synthroid] 100 mcg PO DAILY 06/22/17 02/16/19 History Furosemide [Lasix] 40 mg PO BID #60 06/26/17 02/16/19 Rx Amiodarone [Cordarone] 100 mg PO DAILY #90 tab 05/29/18 02/16/19 Rx glipiZIDE [Glucotrol] 5 mg PO QAM 06/14/18 02/16/19 History Sacubitril/Valsartan [Entresto 24 1 tab PO BID 02/16/19 02/16/19 History mg-26 mg Tablet] Allergies Allergy/AdvReac Type Severity Reaction Status Date / Time No Known Allergies Allergy Verified 02/16/19 20:38 Physical Exam Vitals: Vital Signs Temp Pulse Resp BP Pulse Ox 02/17/19 08:00 65 14 104/68 96 02/17/19 07:00 65 16 86/66 95 02/17/19 06:00 64 13 94/53 90 L 02/17/19 05:00 67 15 98/48 93 L 02/17/19 04:00 74 16 105/44 94 L 02/17/19 03:50 71 11 L 94 L 02/17/19 03:40 69 14 94 L 02/17/19 03:30 71 11 L 94 L 02/17/19 03:20 75 20 92 L 02/17/19 03:19 98.4 F 16 94 L 02/17/19 03:10 72 19 93 L 02/17/19 03:00 98.4 F 74 17 104/61 95 02/17/19 02:50 87 20 104/59 95 02/17/19 02:30 70 14 88/46 98 02/17/19 02:20 64 17 88/46 96 02/17/19 02:10 75 11 L 78/36 96 02/17/19 02:00 74 17 90/57 98 02/17/19 01:50 75 14 90/57 97 02/17/19 01:40 78 33 H 96/51 95 02/17/19 01:30 65 19 101/64 97 02/17/19 01:20 79 18 101/64 98 02/17/19 01:10 79 16 95/55 95 02/17/19 01:00 80 15 89/50 96 02/17/19 00:50 78 17 89/50 96 02/17/19 00:40 78 19 93/41 97 02/17/19 00:30 80 15 84/47 96 02/17/19 00:20 87 84/47 96 02/17/19 00:10 78 83/47 96 02/17/19 00:00 80 88/40 97 02/16/19 23:50 80 88/40 98 02/16/19 23:40 61 100/45 97 02/16/19 23:30 79 19 91/48 98 02/16/19 23:20 74 91/48 97 02/16/19 23:10 71 14 87/45 02/16/19 23:00 81 18 84/43 02/16/19 22:50 81 18 84/43 02/16/19 22:40 83 18 88/56 02/16/19 22:30 81 22 85/49 02/16/19 22:20 96 17 85/49 96 02/16/19 22:10 98 20 65/39 96 02/16/19 22:06 86 18 88/56 98 02/16/19 22:00 105 H 18 81/54 97 02/16/19 21:50 105 H 6 L 81/54 96 02/16/19 21:40 108 H 17 95/53 96 02/16/19 21:30 107 H 19 80/48 96 02/16/19 21:20 108 H 21 80/48 96 02/16/19 21:10 111 H 33 H 83/46 96 02/16/19 21:06 87 16 95/53 97 02/16/19 21:00 112 H 17 92/57 97 02/16/19 20:50 92/57 02/16/19 20:40 116 H 30 H 97/49 96 02/16/19 20:30 117 H 24 94/46 97 02/16/19 20:20 107 H 15 94/46 02/16/19 20:13 98/57 02/16/19 20:00 97.6 F 129 H 22 72/42 94 L Intake and Output 02/16/19 02/17/19 02/17/19 22:59 06:59 14:59 Intake Total 335 60 Output Total 150 Balance 335 -90 Intake: IV 335 60 0.9 60 60 Levofloxacin 750Mg-D5w 150 Pmx 750 mg In Dextrose/ Water 1 150ml.bag @ 100 mls/hr IVPB ONCE STA Rx#: [id number] Vancomycin 1,500 mg In 125 Sodium Chloride 0.9% 250 ml @ 125 mls/hr IVPB ONCE STA Rx#:[id number] Output: Urine 150 Other: # Voids 0 1 Weight 83.915 kg General appearance: alert, in no apparent distress Head exam: Atraumatic, normocephalic Eye exam:normal appearance, PERRL, EOMI. Absent: scleral icterus, conjunctival injection, periorbital swelling ENT exam: normal exam, mucous membranes moist Neck exam: Present: normal inspection. Absent: tenderness, meningismus, lymphadenopathy Respiratory exam: Crackles noted bilaterally, no rhonchi no wheezes. Symmetrical chest expansion noted. Cardiovascular Exam: Irregular irregular rhythm, no S3 gallop. GI/Abdominal exam: Present: soft, normal bowel sounds. Absent: distended, tenderness, guarding, rebound, rigid Extremities exam: Present: normal inspection, full ROM, normal capillary refill. Absent: tenderness, pedal edema, joint swelling, calf tenderness Back exam: Present: normal inspection Neurological exam: Present: alert, oriented X3, CN II-XII intact Psychiatric exam: Present: normal affect, normal mood Skin exam: Present: warm, dry, intact, normal color. Absent: rash Results - Laboratory Findings CBC and BMP: 02/17/19 06:35 02/17/19 06:35 PT/INR, D-dimer PT 11.8 sec (9.0-12.0) 02/16/19 20:29 INR 1.1 (<1.2) 02/16/19 20:29 D-Dimer 1.28 mg/L FEU (<0.60) H 02/16/19 20:29 Abnormal lab findings: Abnormal Labs 02/16/19 02/16/19 02/16/19 20:29 20:29 20:29 WBC 19.8 H RBC Hgb Hct RDW 16.4 H Neutrophils # 17.3 H D-Dimer 1.28 H Potassium 5.6 H Chloride Carbon Dioxide 18 L BUN 89 H Creatinine 3.98 H Glucose 150 H Plasma Lactic Acid Dario AST 15 L ALT 19 L Alkaline Phosphatase 127 H Troponin I Urine Protein Ur Leukocyte Esterase Urine WBC Hyaline Casts Urine Mucus 02/16/19 02/17/19 02/17/19 20:29 01:30 02:09 WBC RBC Hgb Hct RDW Neutrophils # D-Dimer Potassium Chloride Carbon Dioxide BUN Creatinine Glucose Plasma Lactic Acid Dario 2.2 H* AST ALT Alkaline Phosphatase Troponin I 0.076 H* Urine Protein Trace H Ur Leukocyte Esterase Trace H Urine WBC 6 H Hyaline Casts 117 H Urine Mucus Rare H 02/17/19 02/17/19 02/17/19 02:09 02:09 04:37 WBC 17.2 H RBC Hgb 11.7 L Hct 36.6 L RDW 16.5 H Neutrophils # 14.4 H D-Dimer Potassium 5.4 H Chloride 110 H Carbon Dioxide BUN 94 H Creatinine 4.13 H Glucose Plasma Lactic Acid Dario AST ALT Alkaline Phosphatase Troponin I 0.082 H* Urine Protein Ur Leukocyte Esterase Urine WBC Hyaline Casts Urine Mucus 02/17/19 02/17/19 06:35 06:35 WBC 14.3 H RBC 4.14 L Hgb 11.3 L Hct 35.1 L RDW 16.6 H Neutrophils # D-Dimer Potassium Chloride 110 H Carbon Dioxide BUN 95 H Creatinine 4.04 H Glucose Plasma Lactic Acid Dario AST ALT Alkaline Phosphatase Troponin I Urine Protein Ur Leukocyte Esterase Urine WBC Hyaline Casts Urine Mucus - Diagnostic Findings Chest x-ray: image reviewed (Chest x-ray is suggestive of bilateral interstitial edema.) Assessment and Plan Assessment: Impression: 1 acute on chronic systolic congestive heart failure, patient is known to have history of LV dysfunction and ejection fraction of 20%. 2 strongly doubt pneumonia considering the clinical history and the presentation and the response to treatment. 3 hypotension mostly secondary to systolic dysfunction and atrial fibrillation. 4 acute on chronic renal failure, most likely cardiorenal in nature. 5 chronic kidney disease stage III. 6 increased lactic acid secondary to hypoperfusion and LV dysfunction as well as hypotension. 7 chronic atrial fibrillation 5 type 2 diabetes 6 history of hypertension 7 history of coronary artery disease and previous UT, previous CABg 8 history of hypothyroidism 10 LV dysfunction and previous AICD placement. Recommendation: Clearly the patient presented with multiple complex medical problems, however he is responding to treatment mostly diuretics, I have written for a maintenance dose of Lasix, will continue all his other meds, will discontinue vancomycin, continue to hold his blood pressure medication, transfer out of the ICU to a monitor bed on selective today. We'll continue to follow as needed. Time with Patient: Greater than 30
[2019-02-17] MEDS ORDERED: LEVOFLOXACIN 500MG-D5W PMX 500 MG in DEXTROSE/WATER 1 100ML.BAG IVPB SCH (10:00)
[2019-02-17 11:41] LABS: Glucose,Whole Blood 91 mg/dL (75-99)
--- NOTE | 2019-02-17 12:30 | P.CRDCN ---
History of Present Illness Consult date: 02/17/19 Chief complaint: Shortness of breath History of present illness: This is a pleasant 83-year-old gentleman with a past medical history significant for coronary artery disease, status post CABG, known ischemic cardiomyopathy based on echocardiogram was performed in 2079 showing an EF of 20%, status post bi-V ICD, chronic kidney disease, diabetes, hypertension, and dyslipidemia, was admitted to the intensive care unit with shortness of breath and possible congestive heart failure. The patient somewhat is a poor historian. He stated that for the last few days, he has been experiencing increasing in the shortness of breath as well as congestion. Beside that he was experiencing cough but without any sputum production. No fever and no chills. No lower extremities edema. And no symptoms of chest pain or chest discomfort. In the emergency room, the chest x-ray revealed findings consistent with CHF was bilateral pleural effusion. The BNP came in to be elevated. Beside that the troponin was checked and came in to be slightly abnormal. The patient clearly indicates that he did not have any symptoms of chest pain or chest discomfort. More importantly, the creatinine came in to be around [address] above the patient's baseline creatinine. Currently nephrology is on the case. The EKG showed atrial fibrillation with interventricular conduction delay seems to be nonspecific. No documented history of atrial fibrillation. Reviewing the previous medical records did not indicate that the patient was diagnosed with atrial fibrillation in the past nor he is taking any oral anticoagulation at home. The patient received one dose of Lasix IV with improvement in his symptoms. The last echocardiogram was from 2017 showing an EF of 20% with mild valvular abnormalities. The patient underwent an upgrade into bi-V ICD in May 2018 as well. Past Medical History Past Medical History: Atrial Fibrillation, Coronary Artery Disease (CAD), Cancer, Heart Failure, COPD, Diabetes Mellitus, Hypertension, Liver Disease, Myocardial Infarction ([place]), Thyroid Disorder Additional Past Medical History / Comment(s): See Dr Carrera's H&P,mantle cell lymphoma treated 9-10 years ago with chemo, hx pleural effusion L side with thoracentesis x2, sepsis, urinary retention, hepatitis in 1950 type unknown, diff swallowing, decreased kidney function Last Myocardial Infarction Date:: 1998 History of Any Multi-Drug Resistant Organisms: None Reported Past Surgical History: AICD, Coronary Bypass/CABG, Heart Catheterization, Pacemaker Additional Past Surgical History / Comment(s): PTCA, 1998 4 vessel CABG, cardioversion, L thoracentesis x2, colonoscopy, bone marrow bx, bilateral cataract removal, mediport. Past Anesthesia/Blood Transfusion Reactions: No Reported Reaction Type of Cardiac Device: Permanent Pacemaker, AICD Device Placement Date:: 2004 implant/2017 gen change Past Psychological History: No Psychological Hx Reported Additional Psychological History / Comment(s): Lives in the family home with his . 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 Denies any recent travels. No recent animal exposures. Uses cane to ambulate. Pt drives. Smoking Status: Former smoker Past Alcohol Use History: None Reported Additional Past Alcohol Use History / Comment(s): Pt smoked from about 1955 until 1994. 1 ppd Past Drug Use History: None Reported - Past Family History Mother Family Medical History: No Reported History Additional Family Medical History / Comment(s): Mother was healthy and lived to be 86yrs old. Brother(s) Family Medical History: Cancer Father Family Medical History: Cancer Additional Family Medical History / Comment(s): Father had bone cancer. He also had "heart problems." He at the age of 82 yrs. Medications and Allergies Home Medications Medication Instructions Recorded Confirmed Type Aspirin EC [Ecotrin Low Dose] 81 mg PO DAILY 01/31/15 02/16/19 History Allopurinol [Zyloprim] 100 mg PO DAILY 08/14/15 02/16/19 History Cholecalciferol [Vitamin D3 (25 1,000 unit PO DAILY 06/22/17 02/16/19 History Mcg = 1000 Iu)] Levothyroxine Sodium [Synthroid] 100 mcg PO DAILY 06/22/17 02/16/19 History Furosemide [Lasix] 40 mg PO BID #60 06/26/17 02/16/19 Rx Amiodarone [Cordarone] 100 mg PO DAILY #90 tab 05/29/18 02/16/19 Rx glipiZIDE [Glucotrol] 5 mg PO QAM 06/14/18 02/16/19 History Sacubitril/Valsartan [Entresto 24 1 tab PO BID 02/16/19 02/16/19 History mg-26 mg Tablet] Allergies Allergy/AdvReac Type Severity Reaction Status Date / Time No Known Allergies Allergy Verified 02/16/19 20:38 Physical Exam Vitals: Vital Signs Temp Pulse Resp BP Pulse Ox 02/17/19 11:00 98 F 64 14 96/46 93 L 02/17/19 10:00 66 16 101/53 96 02/17/19 09:00 69 14 103/57 93 L 02/17/19 08:00 65 14 104/68 96 02/17/19 07:00 65 16 86/66 95 02/17/19 06:00 64 13 94/53 90 L 02/17/19 05:00 67 15 98/48 93 L 02/17/19 04:00 74 16 105/44 94 L 02/17/19 03:50 71 11 L 94 L 02/17/19 03:40 69 14 94 L 02/17/19 03:30 71 11 L 94 L 02/17/19 03:20 75 20 92 L 02/17/19 03:19 98.4 F 16 94 L 02/17/19 03:10 72 19 93 L 02/17/19 03:00 98.4 F 74 17 104/61 95 02/17/19 02:50 87 20 104/59 95 02/17/19 02:30 70 14 88/46 98 02/17/19 02:20 64 17 88/46 96 02/17/19 02:10 75 11 L 78/36 96 02/17/19 02:00 74 17 90/57 98 02/17/19 01:50 75 14 90/57 97 02/17/19 01:40 78 33 H 96/51 95 02/17/19 01:30 65 19 101/64 97 02/17/19 01:20 79 18 101/64 98 02/17/19 01:10 79 16 95/55 95 02/17/19 01:00 80 15 89/50 96 02/17/19 00:50 78 17 89/50 96 02/17/19 00:40 78 19 93/41 97 02/17/19 00:30 80 15 84/47 96 02/17/19 00:20 87 84/47 96 02/17/19 00:10 78 83/47 96 02/17/19 00:00 80 88/40 97 02/16/19 23:50 80 88/40 98 02/16/19 23:40 61 100/45 97 02/16/19 23:30 79 19 91/48 98 02/16/19 23:20 74 91/48 97 02/16/19 23:10 71 14 87/45 02/16/19 23:00 81 18 84/43 02/16/19 22:50 81 18 84/43 02/16/19 22:40 83 18 88/56 02/16/19 22:30 81 22 85/49 02/16/19 22:20 96 17 85/49 96 02/16/19 22:10 98 20 65/39 96 02/16/19 22:06 86 18 88/56 98 02/16/19 22:00 105 H 18 81/54 97 02/16/19 21:50 105 H 6 L 81/54 96 02/16/19 21:40 108 H 17 95/53 96 02/16/19 21:30 107 H 19 80/48 96 02/16/19 21:20 108 H 21 80/48 96 02/16/19 21:10 111 H 33 H 83/46 96 02/16/19 21:06 87 16 95/53 97 02/16/19 21:00 112 H 17 92/57 97 02/16/19 20:50 92/57 02/16/19 20:40 116 H 30 H 97/49 96 02/16/19 20:30 117 H 24 94/46 97 02/16/19 20:20 107 H 15 94/46 02/16/19 20:13 98/57 02/16/19 20:00 97.6 F 129 H 22 72/42 94 L Intake and Output 02/16/19 02/17/19 02/17/19 22:59 06:59 14:59 Intake Total 335 100 Output Total 350 Balance 335 -250 Intake: IV 335 100 0.9 60 100 Levofloxacin 750Mg-D5w 150 Pmx 750 mg In Dextrose/ Water 1 150ml.bag @ 100 mls/hr IVPB ONCE STA Rx#: [id number] Vancomycin 1,500 mg In 125 Sodium Chloride 0.9% 250 ml @ 125 mls/hr IVPB ONCE STA Rx#:[id number] Output: Urine 350 Other: # Voids 0 1 Weight 83.915 kg - Constitutional General appearance: no acute distress - Respiratory Respiratory: bilateral: rales - Cardiovascular Rhythm: irregularly irregular Heart sounds: normal: S1, S2 Results 02/17/19 06:35 02/17/19 06:35 Cardiac Enzymes 02/16/19 02/16/19 02/17/19 Range/Units 20:29 20:29 02:09 AST 15 L (17-59) U/L Troponin I 0.023 0.076 H* (0.000-0.034) ng/mL 02/17/19 Range/Units 04:37 AST (17-59) U/L Troponin I 0.082 H* (0.000-0.034) ng/mL Coagulation 02/16/19 Range/Units 20:29 PT 11.8 (9.0-12.0) sec APTT 24.7 (22.0-30.0) sec CBC 02/16/19 02/17/19 02/17/19 Range/Units 20:29 02:09 06:35 WBC 19.8 H 17.2 H 14.3 H (3.8-10.6) k/uL RBC 4.99 4.35 4.14 L (4.30-5.90) m/uL Hgb 13.4 11.7 L 11.3 L (13.0-17.5) gm/dL Hct 42.3 36.6 L 35.1 L (39.0-53.0) % Plt Count 247 190 184 (150-450) k/uL Comprehensive Metabolic Panel 02/16/19 02/17/19 02/17/19 Range/Units 20:29 02:09 06:35 Sodium 141 141 143 (137-145) mmol/L Potassium 5.6 H 5.4 H 4.9 (3.5-5.1) mmol/L Chloride 107 110 H 110 H (98-107) mmol/L Carbon Dioxide 18 L 24 24 (22-30) mmol/L BUN 89 H 94 H 95 H (9-20) mg/dL Creatinine 3.98 H 4.13 H 4.04 H (0.66-1.25) mg/dL Glucose 150 H 90 76 (74-99) mg/dL Calcium 9.2 8.5 8.4 (8.4-10.2) mg/dL AST 15 L (17-59) U/L ALT 19 L (21-72) U/L Alkaline Phosphatase 127 H (38-126) U/L Total Protein 6.7 (6.3-8.2) g/dL Albumin 4.2 (3.5-5.0) g/dL Current Medications Generic Name Dose Route Start Last Admin Trade Name Freq PRN Reason Stop Dose Admin Hydrocodone Bitart/Acetaminophen 1 each 02/17/19 01:48 [place] 5-325 PO Q6HR PRN Pain Allopurinol 100 mg 02/17/19 09:00 02/17/19 08:36 Zyloprim PO 100 mg DAILY [facility] Administration Alprazolam 0.25 mg 02/17/19 01:48 Xanax PO TID PRN Anxiety Amiodarone HCl 100 mg 02/17/19 09:00 02/17/19 08:36 Cordarone PO 100 mg DAILY [facility] Administration Aspirin 81 mg 02/17/19 09:00 02/17/19 08:36 Aspirin PO 81 mg DAILY [facility] Administration Cholecalciferol 1,000 unit 02/17/19 09:00 02/17/19 08:36 Vitamin D3 (25 Mcg = 1000 Iu) PO 1,000 unit DAILY [facility] Administration Furosemide 40 mg 02/17/19 09:00 02/17/19 08:36 Lasix IV Not Given Q12HR [facility] Glipizide 5 mg 02/17/19 09:00 02/17/19 08:36 Glucotrol PO 5 mg QAM [facility] Administration Heparin Sodium (Porcine) 5,000 unit 02/17/19 09:00 02/17/19 08:36 Heparin SQ 5,000 unit Q12HR [facility] Administration Hydromorphone HCl 0.5 mg 02/17/19 01:48 Dilaudid IVP Q6HR PRN Severe Pain Levofloxacin 500 mg/ IV 100 mls @ 100 mls/hr 02/18/19 23:00 Solution IVPB Q48H [facility] Insulin Aspart 0 unit 02/17/19 07:30 02/17/19 08:35 Novolog SQ Not Given ACHS [facility] Protocol Levothyroxine Sodium 100 mcg 02/17/19 06:30 02/17/19 07:21 Synthroid PO 100 mcg DAILY@0630 [facility] Administration Naloxone HCl 0.2 mg 02/17/19 00:05 Narcan IV Q2M PRN Opioid Reversal Pantoprazole Sodium 40 mg 02/17/19 02:00 02/17/19 08:37 Protonix IVP Not Given BID [facility] Temazepam 15 mg 02/17/19 01:48 Restoril PO HS PRN Insomnia Intake and Output 02/16/19 02/17/19 02/17/19 22:59 06:59 14:59 Intake Total 335 100 Output Total 350 Balance 335 -250 Intake: IV 335 100 0.9 60 100 Levofloxacin 750Mg-D5w 150 Pmx 750 mg In Dextrose/ Water 1 150ml.bag @ 100 mls/hr IVPB ONCE STA Rx#: [id number] Vancomycin 1,500 mg In 125 Sodium Chloride 0.9% 250 ml @ 125 mls/hr IVPB ONCE STA Rx#:[id number] Output: Urine 350 Other: # Voids 0 1 Weight 83.915 kg 02/17/19 06:35 02/17/19 06:35 Assessment and Plan Assessment: Assessment #1 acute on chronic systolic congestive heart failure. #2 known ischemic cardiomyopathy was EF of 20% #3 severe underlying coronary artery disease and status post CABG #4 acute on chronic renal failure #5 mildly abnormal cardiac enzymes Plan #1 the patient was given one dose of Lasix IV with improvement in his symptoms #2 awaiting for the 40 service to see and evaluate the patient #3 he is on Lasix at this point at 40 mg IV twice a day #4 the patient is not on any oral anticoagulation for unknown reason. #5 continue monitor the kidney function and electrolytes #6 consider medical treatment for the mildly abnormal cardiac enzymes, which is likely related to acute renal failure as well as LV dysfunction, in view of the absence of any chest pain or chest discomfort at this point Thank you for allowing us participate in his care and we will continue following up with the patient
[2019-02-17 12:45] LABS: Potassium 4.9 mmol/L (3.5-5.1)
--- NOTE | 2019-02-17 13:21 | CONS ---
CONSULTATION REASON FOR CONSULT: Renal failure. HISTORY OF PRESENT ILLNESS: The patient is an 83-year-old male with history of chronic kidney disease and NKF stage IIIB to IV, with baseline creatinine about 2.2-2.9 mg/dL. The patient was admitted to the hospital with complaints of shortness of breath. He denied any fevers or chills. Chest x-ray showed evidence of pulmonary vascular congestion. The patient's white cell count was also elevated at 17.2. No nausea, vomiting or diarrhea is noted. Troponin was mildly elevated at 0.082. The patient denied any chest pains or cough. UA showed hyaline casts. No significant WBCs were noted. Blood pressure has been low systolic was in the 80s when he 1st came into the hospital. The patient did receive an IV fluid bolus in the ER. 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 Baseline creatinine 2.2-2.8 mg/dL. Mantle cell lymphoma. Hyperuricemia. History of hyperkalemia. History of BPH and urinary retention, history of CHF, ejection fraction less than 20%, coronary artery disease, type 2 diabetes, history of liver disease, history of atrial fibrillation. MEDICATIONS: Prior to admission included Glucotrol and Entresto, Synthroid. Lasix, Ecotrin, Cordarone, Zyloprim. ALLERGIES: None. SOCIAL HISTORY: The patient is a former smoker. No history of drug abuse or alcohol abuse. REVIEW OF SYSTEMS: As per HPI. Other systems negative. PHYSICAL EXAMINATION: Currently patient is comfortable, awake, alert, oriented x3. He is not in any acute distress. Blood pressure this morning 104/68, heart rate 65 per minute. He is afebrile. Examination of the heart S1, S2. Examination of the lungs bilateral breath sounds are heard. Abdomen is soft, nontender. Examination of lower extremities shows no significant edema. Minimal basal crackles are heard. CHIEF NUCLEAR MEDICINE TECHNOLOGIST exam is grossly intact. LAB: Show sodium 143, potassium 4.9, chloride 110, BUN 95, serum creatinine 4.04. Hemoglobin 11.3 g/dL. Magnesium was 2.2. ASSESSMENT: 1. Acute kidney injury secondary to hypotension and hypoperfusion, component of cardiorenal syndrome as well. Currently, patient is nonoliguric. I will give him a dose of Lasix this morning. Continue to minimize IV fluids. Decrease to KVO. Avoid any other nephrotoxic agents. Hold off on Entresto to avoid hypotension and repeat labs in a.m. Discontinue vancomycin given the advanced renal failure. 2. Chronic kidney disease and NKF stage IV secondary to nephrosclerosis and cardiorenal syndrome. Baseline creatinine 2.2-2.8 mg/dL. 3. Cardiomyopathy, ejection fraction less than 20%. 4. Congestive heart failure, acute on top of chronic, mainly systolic. 5. History of atrial fibrillation maintained on amiodarone, rate is controlled. 6. Type 2 diabetes, currently on Glucotrol. PLAN: Continue empiric antibiotics. Minimize IV fluids. Lasix x1 now. DC vancomycin given the advanced renal failure. Repeat labs in a.m. The patient did have a white count and lactic acidosis as well at the time of admission. Continue with the empiric antibiotics. His urine does not appear to be infected. We will follow up on the chest x-ray tomorrow after diuresis. Thank you for this consultation. We will continue to follow the patient with you during his hospitalization. MMODL / IJN: [id number] /
[2019-02-17 16:22] VITALS: BMI 26.5
[2019-02-17 16:50] LABS: Glucose,Whole Blood 44 mg/dL (75-99)
[2019-02-17 16:52] LABS: Glucose,Whole Blood 42 mg/dL (75-99)
[2019-02-17 17:12] LABS: Glucose,Whole Blood 57 mg/dL (75-99)
[2019-02-17] MEDS: PANTOPRAZOLE 40 MG TABLET PO SCH (17:33)
[2019-02-17 17:36] LABS: Glucose,Whole Blood 72 mg/dL (75-99)
[2019-02-17] MEDS ORDERED: VANCOMYCIN 1,500 MG in SODIUM CHLORIDE 0.9% 250 ML IVPB ONE (18:00)
--- NOTE | 2019-02-17 19:33 | PN ---
PROGRESS NOTE DATE OF SERVICE: 02/17/2019 This 83-year-old gentleman who was admitted with shortness of breath and CHF acute exacerbation, ejection fraction less than 20%. Patient was suspected of bilateral pneumonia too. The patient also had hypotension which was multifactorial. Patient has renal failure also. Today, the patient also reports that the patient has taken Motrin 600 mg twice daily for at least a week after dental extraction recently. The most recent chest x-ray done today which was personally reviewed by me showed some improvement at this time. Multiple consultants are following the patient closely. Blood pressure has also improved. Patient is feeling slightly better. Patient is still being monitored in ICU at this time. PAST MEDICAL HISTORY: Reviewed. REVIEW OF SYSTEMS: CARDIOVASCULAR SYSTEM: No angina. No palpitations. RESPIRATORY: As mentioned earlier. GI no nausea or vomiting. : No dysuria. NERVOUS SYSTEM: No numbness or weakness. CURRENT MEDICATIONS: Reviewed and include: 1. [place] 5 mg q.6h p.r.n. 2. Zyloprim 100 mg p.o. daily. 3. Xanax 0.5 t.i.d. 4. Cordarone 100 mg b.i.d. 5. Aspirin 81 mg daily. 6. Vitamin D 3000 daily. 7. Lasix 40 mg IV b.i.d. 8. Glucotrol 5 mg t.i.d. 9. Heparin 5000 units b.i.d. 10.Dilaudid q.6h p.r.n. 11.NovoLog a.c. and q.h.s. 12.Levaquin 500 mg IV q.48h. 13.Synthroid 100 mcg p.o. daily. 14.Narcan 0.2 q.2h p.r.n. 15.Protonix 40 mg b.i.d. 16.Restoril 50 mg q.h.s. p.r.n. PHYSICAL EXAM: Patient is alert, oriented x3. Pulse 66, blood pressure 111/50, respiration 20, temperature 98.2, pulse ox 94% on 2 L. HEENT: Conjunctivae normal. Oral mucosa moist. NECK is no jugular venous distention. No carotid bruit. No lymph node enlargement. CARDIOVASCULAR system: S1, S2 muffled. Ejection systolic murmur present. RESPIRATORY: Breath sounds diminished in the bases. A few scattered rhonchi and crackles. ABDOMEN: Soft, nontender. LEGS: No edema. No swelling. Higher functions as mentioned earlier. Moves all 4 limbs. No focal motor or sensory deficits. LYMPHATICS: No lymph nodes palpable in the neck, axillae or groin. SKIN: No ulcer, no rash. No bleeding. JOINTS: No active deforming arthropathy. LABS: WBC 14.2, hemoglobin 11.3, sodium 142, potassium 4.9, and creatinine is 4.04. The baseline creatinine is around 2. ASSESSMENT: 1. Shortness of breath, chest pain, with possible congestive heart failure acute exacerbation with acute on chronic systolic dysfunction, ejection fraction less than 20%. 2. Rule out bilateral pneumonia. 3. Hypotension, possibly secondary to dehydration renal factors. Rule out cardiogenic shock. 4. Increased creatinine with acute on chronic renal failure with acute tubular necrosis. 5. Possible cardiorenal syndrome. 6. Chronic kidney disease stage 3 baseline. 7. Increased lactic acid, possibly secondary to dehydration. 8. Increased WBC. 9. History atrial fibrillation. 10.History of coronary artery disease. 11.History of congestive heart failure. 12.History of chronic obstructive pulmonary disease. 13.Diabetes mellitus type 2. 14.Hypertension. 15.History of liver disease. 16.History of myocardial infarction. 17.History of hypothyroidism. 18.History of AICD. 19.History of coronary artery disease, coronary artery bypass grafting. 20.Remote history of nicotine dependence. 21.FULL CODE. RECOMMENDATIONS AND DISCUSSION: I recommend to continue current medications. Monitor and symptomatic treatment. Otherwise troponin is noted. The Lasix will be continued and we will continue to monitor. Nephrology is consulted. Broad-spectrum IV antibiotics. Avoid nephrotoxic agents. Resume the home medications. Closely follow with multiple consultants. Discussed with the family at length. Guarded prognosis. Further recommendations to follow. MMODL / IJN: [id number] / SEBASTIÁN
[2019-02-17 20:34] LABS: Glucose,Whole Blood 56 mg/dL (75-99)
[2019-02-17 21:01] LABS: Glucose,Whole Blood 72 mg/dL (75-99)
[2019-02-18 00:12] LABS: Glucose,Whole Blood 95 mg/dL (75-99)
[2019-02-18 04:40] LABS: Anisocytosis Slight; Basophils # (A) 0.1 k/uL (0-0.2); Basophils % (A) 1 %; Eosinophils # (A) 0.4 k/uL (0-0.7); Eosinophils % (A) 4 %; HCT 37.7 % (39.0-53.0); HGB 11.4 gm/dL (13.0-17.5); Lymphocytes # (A) 1.1 k/uL (1.0-4.8); Lymphocytes % (A) 12 %; MCH 26.1 pg (25.0-35.0); MCHC 30.2 g/dL (31.0-37.0); MCV 86.3 fL (80.0-100.0); Mean Platelet Volume 7.1; Monocytes # (A) 0.5 k/uL (0-1.0); Monocytes % (A) 6 %; Neutrophils # (A) 6.7 k/uL (1.3-7.7); Neutrophils % (A) 76 %; Platelet Count 201 k/uL (150-450); RBC 4.37 m/uL (4.30-5.90); RDW 16.3 % (11.5-15.5); WBC 8.9 k/uL (3.8-10.6)
[2019-02-18 04:48] LABS: Calcium 8.9 mg/dL (8.4-10.2); Potassium 4.7 mmol/L (3.5-5.1)
[2019-02-18 04:53] LABS: Vancomycin,Random 11.7 ug/mL
[2019-02-18 05:31] LABS: Glucose,Whole Blood 74 mg/dL (75-99)
[2019-02-18] MEDS: LEVOTHYROXINE 100 MCG TAB PO SCH (06:23)
[2019-02-18 06:52] LABS: Glucose,Whole Blood 97 mg/dL (75-99)
--- NOTE | 2019-02-18 07:34 | PN ---
PROGRESS NOTE DATE OF SERVICE: February 18, 2019 This is an 83-year-old male seen by my partner yesterday in evaluation. His impression at that time was acute on chronic systolic heart failure. He apparently has an ejection fraction of 20%. My partner also strongly doubted pneumonia on evaluating the patient. He apparently did have some transient hypotension, but here in the unit has been stable. In addition, he has acute on chronic renal failure, chronic kidney disease, stage III, lactic acidemia secondary to hypoperfusion, chronic atrial fibrillation, type 2 diabetes, benign essential hypertension, CAD with previous [place] and bypass grafting, hypothyroidism, and previous AICD placement for LV dysfunction. Currently, the patient is resting comfortably. He is receiving O2 at 2 L. He has no complaints. His IV is a 0.9 at 20 mL an hour. He denies any chest pain or chest discomfort, shortness of breath, cough, wheezing, phlegm production, hemoptysis, fever, chills, nausea, vomiting or diarrhea. PHYSICAL EXAMINATION: His current vital signs are reviewed temperature 98.3 heart rate 79, respiratory rate 16, blood pressure 111/56, mean 74 and a 2 L saturation between 93% and 95%. Appears in no acute distress. HEENT examination is grossly unremarkable. Nasal O2 noted. NECK: Supple. Full range of motion. No adenopathy. CARDIOVASCULAR: Examination reveals distant heart sounds. S1, S2 normal. Heart rate about 80 beats per minute. It is regular. S1, S2 normal. No murmur noted. LUNGS: Reveal some bibasilar crackles. No wheezes or rhonchi. Breath sounds are diminished. ABDOMEN: Soft. Bowel sounds are heard. EXTREMITIES: Are intact. Mild lower extremity edema. SKIN: Without rash. NEUROLOGIC: Examination is brief but nonfocal. The chest x-ray from this morning still shows a pattern of fluid overload. There is a small effusion. There is some cephalization and some interstitial edema. His device is noted. Labs are reviewed. White count 8.9, hemoglobin 11.4, hematocrit 37.7, platelet count 201,000. Sodium 141, potassium 4.7, chloride 110, CO2 of 21. Anion gap is 10. BUN and creatinine were 86 and 3.80. Microbiologic studies are all negative thus far. Medications are reviewed. ASSESSMENT: 1. Acute on chronic systolic heart failure in a patient with severe cardiomyopathy and ejection fraction of 20%. 2. Strongly doubt pneumonia. 3. Hypotension, transient, secondary to systolic dysfunction, atrial fibrillation. 4. Acute on chronic renal failure with stage 3 chronic kidney disease. 5. Lactic acidemia secondary to hypoperfusion with left ventricular dysfunction. 6. Chronic atrial fibrillation. 7. Type 2 diabetes mellitus. 8. History of hypertension. 9. History of coronary artery disease with previous myocardial infarction and bypass grafting. 10.Hypothyroidism. 11.Status post AICD placement. PLAN: The patient's medications are reviewed. I think the antibiotic can be discontinued. Additional recommendations and suggestions are forthcoming. Prognosis is guarded. Currently, he is stable. No additional recommendations are made. We will continue to follow while he is here in the intensive care unit. BRITTNY / TURNERN: [id number] /
--- NOTE | 2019-02-18 08:06 | XR ---
EXAMINATION TYPE: XR chest 1V portable DATE OF EXAM: 02/18/2019 COMPARISON: 02/17/2019 HISTORY: Shortness of breath FINDINGS: There are bilateral pleural effusions with cardiomegaly and bibasilar infiltrate. There is a diffuse interstitial pattern. Mediport catheter and cardiac device noted. Sternotomy wires are seen with dis ruption of the upper wire. This is stable. Atherosclerotic change aorta. IMPRESSION: 1. Bilateral infiltrate and small effusion with diffuse interstitial pattern correlate for CHF. Other yeung consider pneumonia.
[2019-02-18] MEDS: ALLOPURINOL 100 MG TAB PO SCH (08:22)
[2019-02-18] MEDS: glipiZIDE 5 MG TAB PO SCH (08:22)
[2019-02-18] MEDS: HEPARIN SODIUM,PORCINE 5,000 UNIT/ML 1 ML VIAL SQ SCH ×2 (08:22→21:05)
[2019-02-18] MEDS: ASPIRIN 81 MG PO SCH (08:22)
[2019-02-18] MEDS: AMIODARONE 100 MG TAB PO SCH (08:22)
[2019-02-18] MEDS: METOPROLOL TARTRATE 25 MG TAB PO SCH ×2 (08:22→21:05)
[2019-02-18] MEDS: CHOLECALCIFEROL 1,000 UNIT TAB PO SCH (08:22)
[2019-02-18] MEDS: FUROSEMIDE 10 MG/ML 4 ML VIAL IV SCH ×2 (08:23→21:05)
[2019-02-18] MEDS: PANTOPRAZOLE 40 MG TABLET PO SCH ×2 (08:24→17:14)
--- NOTE | 2019-02-18 08:55 | PN ---
PROGRESS NOTE Mr. Patel is an 83-year-old male who presented to the hospital with symptoms of progressive dyspnea. He has a known history of severe cardiomyopathy, status post Bi V ICD implantation, history of chronic kidney disease, status post CABG. He is feeling better this morning. He is denying any chest discomfort. He denies any dizziness or palpitation. Hemodynamically, he has been stable. He continues to be at this time on amiodarone 100 mg daily, aspirin 81 mg daily, Lasix 40 mg IV q.12 hours. PHYSICAL EXAMINATION: Blood pressure 112/60 with the heart rate in the 70s. LUNGS: With few crackles at the bases. HEART: Regular rate and rhythm. S1, S2. No S3. No gallop appreciated with a systolic murmur, diastolic murmur. ABDOMEN: Soft, nontender. EXTREMITIES: With mild edema. LAB DATA: Lab data revealed a BUN and creatinine 86 and 3.8, hemoglobin of 11.4, potassium 4.7. IMPRESSION: 1. Worsening congestive heart failure in a patient with known history of severe ischemic cardiomyopathy. 2. History of ICD Bi-V implant. 3. History of paroxysmal atrial fibrillation. 4. Renal failure. RECOMMENDATION: I will continue on the present therapy. I will start him on a low-dose beta lelo. His Entresto is on hold because of the renal functions and that will be reassessed. He will continue on the diuretics for now. We will follow his renal function and depending on the progress, further recommendation will be made. MMODL / IJN: [id number] /
--- NOTE | 2019-02-18 11:22 | PN ---
PROGRESS NOTE Patient is seen for followup for chronic kidney disease and acute kidney injury. He was admitted to the hospital with shortness of breath. He was found to be in fluid overload, although he was also hypotensive and had an elevated lactic acid level and mild elevation in his white count. Patient is maintained on empiric antibiotics. Overall, he states he is feeling better. Serum creatinine is down to 3.8 from 4.1 initially. PHYSICAL EXAMINATION: This morning, blood pressure was 112/59, heart rate 67 per minute. He is afebrile. Examination of the heart, S1, S2. Examination of the lungs, bilateral breath sounds are heard. Abdomen is soft, nontender. Examination of the lower extremities shows no significant edema. HUMAN RESOURCES ASSISTANT exam is grossly intact. LABS: Show sodium 141, potassium 4.7, chloride 110, BUN 86, serum creatinine 3.8, hemoglobin 11.4. ASSESSMENT: 1. Acute on top of chronic kidney disease, acute tubular necrosis, currently nonoliguric. Also component of cardiorenal syndrome. Continue with current dose of IV Lasix for now. 2. Chronic kidney disease, NKF stage IV. Baseline creatinine about 2.2 mg/dL. He has been at 2.8 as well over the past few months. Etiology is nephrosclerosis. 3. Congestive heart failure, acute on top of chronic, mainly systolic. 4. History of paroxysmal atrial fibrillation. 5. Coronary artery disease, status post coronary artery bypass surgery with severe ischemic cardiomyopathy and ejection fraction less than 20%. PLAN: Continue current dose of Lasix. Continue empiric antibiotics. All cultures are negative thus far. Repeat labs in a.m. MMODL / IJN: [id number] /
[2019-02-18 11:36] LABS: Glucose,Whole Blood 63 mg/dL (75-99)
[2019-02-18 11:59] LABS: Glucose,Whole Blood 71 mg/dL (75-99)
--- NOTE | 2019-02-18 15:52 | PN ---
PROGRESS NOTE DATE OF SERVICE: 02/18/2019 This 83-year-old gentleman who was admitted with shortness of breath as well as CHF, acute exacerbation, is being closely monitored. The patient is also suspected to have some pneumonia. Patient is on empiric antibiotics. The patient also had CHF and renal failure. Creatinine is 2.8 . Multiple consultants are following the patient closely. The patient has mild hypoglycemia today. Past medical history reviewed. REVIEW OF SYSTEMS: CARDIOVASCULAR SYSTEM: No angina, palpitations. RESPIRATORY SYSTEM: No cough, hemoptysis. GI: No nausea, vomiting. : No dysuria or retention. NERVOUS SYSTEM: No numbness, weakness. CURRENT MEDICATIONS: Reviewed. They include: 1. [place] 5 mg q.6 p.r.n. 2. Zyloprim 100 mg daily. 3. Xanax 0.25 t.i.d. 4. Cordarone 100 mg p.o. daily. 5. Aspirin 81 mg p.o. daily. 6. Vitamin D3 1000 daily. 7. Lasix 40 mg b.i.d. 8. Glucotrol 5 mg each morning. 9. Heparin subcutaneously b.i.d. 10.Dilaudid. 11.NovoLog. 12.Synthroid. 13.Lopressor. 14.Narcan. 15.Protonix. 16.Restoril. Doses reviewed. PHYSICAL EXAMINATION: Patient is alert, oriented x3. Pulse 57, blood pressure 112/67, respiration 14, temperature 97.8, pulse ox 94% on 2 L nasal cannula. HEENT: Conjunctivae normal. Oral mucosa moist. NECK: JVD at the root of the neck. CARDIOVASCULAR SYSTEM: S1, S2 muffled. No S3. No S4. RESPIRATORY SYSTEM: Breath sounds diminished at the bases. A few scattered rhonchi and crackles. ABDOMEN: Soft, obese, non-tender. LEGS: Minimal edema. NERVOUS SYSTEM: Diffusely weak. LAB/INVESTIGATIONS: WBC 8.9, hemoglobin 11.4. Creatinine is 3.80. Yesterday it was 4.04. BUN is 86. Troponins are noted. Sugars are noted. The cultures are negative so far. ASSESSMENT: 1. Shortness of breath with chest pain with possible congestive heart failure, acute exacerbation, with acute on chronic systolic dysfunction, ejection fraction less than 20%. 2. Possible bilateral pneumonia. 3. Hypotension, possibly secondary to dehydration and renal failure. Rule out cardiogenic shock. 4. Increased creatinine with acute on chronic renal failure with acute tubular necrosis. 5. Possible cardiorenal syndrome. 6. Chronic kidney disease, stage III at baseline. 7. Increased lactic acid, possible secondary to dehydration. 8. Increased white count. 9. History of atrial fibrillation. 10.History of coronary artery disease. 11.History of congestive heart failure. 12.Chronic obstructive pulmonary disease. 13.Diabetes mellitus, type 2. 14.Hypertension. 15.History of liver disease. 16.History of myocardial infarction. 17.History of hypothyroidism. 18.History of automated implantable cardioverter defibrillator. 19.History of coronary artery disease, coronary artery bypass grafting. 20.Remote history of nicotine dependence. 21.FULL CODE. RECOMMENDATIONS AND DISCUSSION: I recommend to continue current medications, continue with the monitoring, symptomatic treatment. Blood pressure has improved significantly. I would hold the antidiabetic medication because of persistent hypoglycemia. We will closely monitor with multiple consultants, Cardiology, Nephrology. Prognosis guarded because of multiple complex medical issues. Increase ambulation. Further recommendations to follow. MMODL / IJN: [id number] /
[2019-02-18 17:07] LABS: Glucose,Whole Blood 123 mg/dL (75-99)
[2019-02-18] MEDS: INSULIN ASPART (NovoLOG) 100 UNIT/ML VIAL SQ SCH ×2 (19:24→20:54)
[2019-02-18 20:43] LABS: Glucose,Whole Blood 135 mg/dL (75-99)
[2019-02-18] MEDS ORDERED: LEVOFLOXACIN 500MG-D5W PMX 500 MG in DEXTROSE/WATER 1 100ML.BAG IVPB SCH (23:00)
[2019-02-19 04:54] LABS: Anisocytosis Slight; Basophils # (A) 0.1 k/uL (0-0.2); Basophils % (A) 1 %; Eosinophils # (A) 0.4 k/uL (0-0.7); Eosinophils % (A) 5 %; HCT 37.6 % (39.0-53.0); HGB 11.9 gm/dL (13.0-17.5); Lymphocytes # (A) 1.8 k/uL (1.0-4.8); Lymphocytes % (A) 19 %; MCH 26.8 pg (25.0-35.0); MCHC 31.7 g/dL (31.0-37.0); MCV 84.5 fL (80.0-100.0); Mean Platelet Volume 7.5; Monocytes # (A) 0.6 k/uL (0-1.0); Monocytes % (A) 6 %; Neutrophils # (A) 6.5 k/uL (1.3-7.7); Neutrophils % (A) 68 %; Platelet Count 177 k/uL (150-450); RBC 4.45 m/uL (4.30-5.90); RDW 16.8 % (11.5-15.5); WBC 9.5 k/uL (3.8-10.6)
[2019-02-19 05:07] LABS: Potassium 4.4 mmol/L (3.5-5.1)
[2019-02-19] MEDS: INSULIN ASPART (NovoLOG) 100 UNIT/ML VIAL SQ SCH ×4 (06:05→20:50)
[2019-02-19] MEDS: LEVOTHYROXINE 100 MCG TAB PO SCH (06:41)
[2019-02-19] MEDS: PANTOPRAZOLE 40 MG TABLET PO SCH ×2 (06:41→16:55)
[2019-02-19 06:46] LABS: Glucose,Whole Blood 91 mg/dL (75-99)
--- NOTE | 2019-02-19 07:19 | PN ---
PROGRESS NOTE DATE OF SERVICE: February 19, 2019 This is an 83-year-old male seen by my partner in evaluation over the weekend. His impression at that time was that he had acute on chronic systolic heart failure. He apparently has an ejection fraction by echocardiogram of 20%. The patient was thought to also have pneumonia, but my partner and his evaluation doubted that diagnosis. The patient did have some transient hypotension. He is currently relatively stable. He does have a history of chronic kidney disease, stage 3, lactic acidemia secondary to hypoperfusion, chronic atrial fibrillation, type 2 diabetes mellitus, benign essential hypertension, CAD with previous [place] and bypass grafting, hypothyroidism, and previous AICD placement for LV dysfunction. The patient currently is resting comfortably. He is not receiving any supplemental oxygen. His IV is 0.9 at 20 mL an hour. The patient could likely be discharged to [facility]. Currently has had a stable night overnight. No major complaints. No chest pain, chest pressure, difficulty breathing, coughing, wheezing, or phlegm production. Current vital signs include a temperature 98.3, heart rate 63, respiratory rate about 8 breaths per minute, blood pressure 100/59, mean 72, room air saturation 93%. Appears in no acute distress. HEENT examination is grossly unremarkable. Mucous membranes are moist. NECK: Supple. Full range of motion. No adenopathy or thyromegaly. Neck veins are flat. CARDIOVASCULAR: Examination reveals distant heart sounds. Heart rate 63. Soft systolic murmur is noted. S1, S2 normal. LUNGS: Reveal relatively clear breath sounds. Maybe just a few scattered crackles. No wheezes or rhonchi. Breath sounds are equal bilaterally. ABDOMEN: Soft. Bowel sounds are heard. EXTREMITIES: Are intact. There is no cyanosis, clubbing, or significant edema. SKIN: Without rash. NEUROLOGIC: Examination is brief but nonfocal. White count 9.5, hemoglobin 11.9, hematocrit 37.6, platelet count 177,000. Sodium 144, potassium 4.4, chloride 110, CO2 of 24. BUN and creatinine were 82 and 3.56. The rest of the labs look okay. Microbiology data is negative. No chest x-ray from today. The chest x-ray from yesterday showed evidence of findings consistent with heart failure. Medications are reviewed. Medications are appropriate. The patient is not requiring any antibiotics or breathing treatments. ASSESSMENT: 1. Acute on chronic systolic heart failure in a patient with severe cardiomyopathy and ejection fraction of 20%. 2. Strongly doubt pneumonia. 3. Hypotension, transient, secondary to systolic dysfunction and atrial fibrillation. 4. Acute on chronic renal failure with stage 3 chronic kidney disease. 5. Lactic acidemia secondary to hypoperfusion with left ventricular dysfunction. 6. Chronic atrial fibrillation. 7. Type 2 diabetes mellitus. 8. History of hypertension. 9. History of coronary artery disease with previous myocardial infarction and bypass grafting. 10.Hypothyroidism. 11.Status post AICD placement. PLAN: The patient's medications were reviewed. Labs and problem list are all reviewed. He had an uneventful night. The patient could be discharged up to [facility]. He is not requiring any supplemental oxygen. His IV is 0.9 at 20 mL an hour. Additional recommendations and suggestions are forthcoming. MMTORIEL / IJN: [id number] /
[2019-02-19] MEDS: AMIODARONE 100 MG TAB PO SCH (08:07)
[2019-02-19] MEDS: CHOLECALCIFEROL 1,000 UNIT TAB PO SCH (08:07)
[2019-02-19] MEDS: FUROSEMIDE 10 MG/ML 4 ML VIAL IV SCH ×2 (08:07→21:00)
[2019-02-19] MEDS: ASPIRIN 81 MG PO SCH (08:07)
[2019-02-19] MEDS: ALLOPURINOL 100 MG TAB PO SCH (08:07)
[2019-02-19] MEDS: METOPROLOL TARTRATE 25 MG TAB PO SCH ×2 (08:08→21:00)
[2019-02-19] MEDS: HEPARIN SODIUM,PORCINE 5,000 UNIT/ML 1 ML VIAL SQ SCH ×2 (08:08→21:00)
--- NOTE | 2019-02-19 08:28 | PN ---
PROGRESS NOTE Mr. Patel is an 83-year-old male with a history of severe cardiomyopathy, status post Bi V ICD implantation, chronic disease, status post coronary artery bypass grafting, who presented with exacerbation of systolic heart failure. He is feeling better today. His breathing is stable. He is denying any chest pain. He is supine. He denies any dizziness or palpitation. He denies any nausea. He continues to be at this time on amiodarone 100 mg daily, aspirin once a day, Lasix 40 mg IV q.12 hours, metoprolol tartrate 25 mg twice a day. PHYSICAL EXAMINATION: Blood pressure 100/59 with a heart rate in the 60s. LUNGS: Clear. HEART: Regular rate and rhythm, S1, S2. No S3 with a systolic murmur. No diastolic murmur, no rub. ABDOMEN: Soft, nontender. EXTREMITIES: No significant edema. LAB DATA: Revealed a BUN and creatinine of 82 and 3.56, which has improved compared to yesterday. Potassium 4.4, hemoglobin 11.9. ASSESSMENT: 1. Exacerbation of systolic heart failure. 2. Worsening renal function, stabilizing. 3. Paroxysmal atrial fibrillation. 4. Status post ICD Bi V implantation. RECOMMENDATION: The patient will continue on the present regimen. Will continue to hold his Entresto for now until his blood pressure stabilizes. The IV diuretic will be adjusted by the Nephrology Service. Will continue to follow his renal function, increase his level of activity and depending on his progress, further recommendation will be made. MMODL / IJN: [id number] /
[2019-02-19 11:58] LABS: Glucose,Whole Blood 106 mg/dL (75-99)
[2019-02-19 16:59] LABS: Glucose,Whole Blood 144 mg/dL (75-99)
--- NOTE | 2019-02-19 17:55 | PN ---
PROGRESS NOTE DATE OF SERVICE: 02/19/2019 This 83-year-old gentleman, admitted with shortness of breath and CHF acute exacerbation, is being closely monitored. The blood pressure is improving at this time. The patient was suspected to have possible bilateral pneumonia also. Multiple consultants, including Cardiology and Pulmonology, are following the patient closely. Past medical history reviewed. REVIEW OF SYSTEMS: CARDIOVASCULAR SYSTEM: No angina, palpitations. RESPIRATORY SYSTEM: As mentioned earlier. GI: As mentioned earlier. : No dysuria or retention. NERVOUS SYSTEM: No numbness, weakness. CURRENT MEDICATIONS: Reviewed. They include: 1. Gilbert 5 mg q.6 p.r.n. 2. Zyloprim 100 mg p.o. daily. 3. Xanax 0.25 t.i.d. 4. Cordarone 100 mg p.o. daily. 5. Aspirin 81 mg daily. 6. Vitamin D3 1000 daily. 7. Lasix 40 mg IV b.i.d. 8. Heparin 5000 units subcutaneously b.i.d. 9. Dilaudid 0.5 q.6 p.r.n. 10.NovoLog. 11.Synthroid 100 mcg p.o. daily. 12.Lopressor 25 mg p.o. b.i.d. 13.Narcan. 14.Protonix 40 mg b.i.d. 15.Restoril 15 mg at bedtime p.r.n. PHYSICAL EXAMINATION: Patient is alert and oriented x3. Pulse 60, blood pressure 115/49, respiration 18, temperature 97.6, pulse ox 94% on room air. HEENT: Conjunctivae normal. Oral mucosa moist. NECK: No jugular venous distention. No carotid bruit. No lymph node enlargement. CARDIOVASCULAR SYSTEM: S1, S2 muffled. RESPIRATORY SYSTEM: Breath sounds diminished at the bases. A few scattered rhonchi and crackles. ABDOMEN: Soft, non-tender. LEGS: No edema. No swelling. NERVOUS SYSTEM: No focal deficit. LABS: Labs at this time show WBC 9.5, hemoglobin 11.9, sodium 144, potassium 4.4. ASSESSMENT: 1. Shortness of breath and chest pain with possible congestive heart failure, acute exacerbation, with acute on chronic systolic dysfunction, ejection fraction less than 20%. 2. Possible bilateral pneumonia. 3. Hypotension, possibly secondary to dehydration and respiratory failure. Rule out cardiogenic shock. 4. Increased creatinine with acute on chronic renal failure with acute tubular necrosis. 5. Possible cardiorenal syndrome. 6. Chronic kidney disease, stage III at baseline. 7. Increased lactic acid, possibly secondary to dehydration. 8. Increased white count. 9. History of atrial fibrillation. 10.History of coronary artery disease. 11.History of congestive heart failure. 12.History of chronic obstructive pulmonary disease. 13.Diabetes mellitus, type 2. 14.Hypertension. 15.History of liver disease. 16.History of myocardial infarction. 17.History of hypothyroidism. 18.History of automated implantable cardioverter defibrillator. 19.History of coronary artery disease, coronary artery bypass grafting. 20.Remote history of nicotine dependence. 21.FULL CODE. RECOMMENDATIONS AND DISCUSSION: I recommend to continue current medications, continue with the monitoring, symptomatic treatment. Otherwise at this time I would recommend continuing with Lasix. The most recent chest x-ray done yesterday, which was personally reviewed by me, showed some CHF. I will repeat a chest x-ray in the morning to evaluate the fluid status. Otherwise, continue with the rest of the medications. Follow with Cardiology. Prognosis guarded because of multiple complex medical issues. Further recommendations to follow. MMODL / IJN: [id number] /
--- NOTE | 2019-02-19 19:21 | P.CNPUL ---
History of Present Illness Consult date: 02/19/19 Reason for consult: dyspnea, COPD, hypoxemia, pleural effusion Chief complaint: Shortness of breath, primary care, continuation of care History of present illness: Patient is a 83-year-old male with the problem associated with chronic systolic heart failure, COPD, type 2 diabetes mellitus, history of coronary artery di sease status post CABG history of lymphoma, patient is well-known to me from before, patient presented about 1 two-day history of increasing shortness of breath dry nonproductive cough without any fever or chills he was hypoxic, with elevated lactic acid of 1.2 and WBC count of 19,000 he was noted to be A. fib with controlled ventricular response as well as renal failure he did respond with a fluid challenge it appears that patient has more of a heart failure than a pneumonia he was placed in ICU now he is downgraded to selective care and I was asked to evaluate this patient further and continuation of care he remains on supplemental oxygen and breathing much more easier Review of Systems All systems: negative Past Medical History Past Medical History: Atrial Fibrillation, Coronary Artery Disease (CAD), Cance r, Heart Failure, COPD, Diabetes Mellitus, Hypertension, Liver Disease, Myocardial Infarction (CO), Thyroid Disorder Additional Past Medical History / Comment(s): See Dr Carrera's H&P,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 Past Anesthesia/Blood Transfusion Reactions: No Reported Reaction Type of Cardiac Device: Permanent Pacemaker, AICD Device Placement Date:: 2004 implant/2017 gen change Past Psychological History: No Psychological Hx Reported Additional Psychological History / Comment(s): Lives in the family home with his . 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 Denies any recent travels. No recent animal exposures. Uses cane to ambulate. Pt drives. Smoking Status: Former smoker Past Alcohol Use History: None Reported Additional Past Alcohol Use History / Comment(s): Pt smoked from about 1955 until 1994. 1 ppd Past Drug Use History: None Reported - Past Family History Mother Family Medical History: No Reported History Additional Family Medical History / Comment(s): Mother was healthy and lived to be 86yrs old. Brother(s) Family Medical History: Cancer Father Family Medical History: Cancer Additional Family Medical History / Comment(s): Father had bone cancer. He also had "heart problems." He at the age of 82 yrs. Medications and Allergies Home Medications Medication Instructions Recorded Confirmed Type Aspirin EC [Ecotrin Low Dose] 81 mg PO DAILY 01/31/15 02/16/19 History Allopurinol [Zyloprim] 100 mg PO DAILY 08/14/15 02/16/19 History Cholecalciferol [Vitamin D3 (25 1,000 unit PO DAILY 06/22/17 02/16/19 History Mcg = 1000 Iu)] Levothyroxine Sodium [Synthroid] 100 mcg PO DAILY 06/22/17 02/16/19 History Furosemide [Lasix] 40 mg PO BID #60 06/26/17 02/16/19 Rx Amiodarone [Cordarone] 100 mg PO DAILY #90 tab 05/29/18 02/16/19 Rx glipiZIDE [Glucotrol] 5 mg PO QAM 06/14/18 02/16/19 History Sacubitril/Valsartan [Entresto 24 1 tab PO BID 02/16/19 02/16/19 History mg-26 mg Tablet] Allergies Allergy/AdvReac Type Severity Reaction Status Date / Time No Known Allergies Allergy Verified 02/16/19 20:38 Physical Exam Vitals: Vital Signs Temp Pulse Resp BP Pulse Ox 02/19/19 16:00 98 F 61 16 119/53 83 L 02/19/19 12:00 97.6 F 60 8 L 115/49 91 L 02/19/19 08:00 98.0 F 67 15 113/59 92 L 02/19/19 06:00 63 8 L 100/59 93 L 02/19/19 04:00 98.3 F 73 20 108/49 91 L 02/19/19 02:00 66 17 104/56 91 L 02/19/19 00:00 98.2 F 70 17 121/54 95 02/18/19 22:00 68 18 134/80 94 L 02/18/19 21:00 98.4 F 79 23 128/56 93 L 02/18/19 20:00 67 17 139/55 94 L Intake and Output 02/19/19 02/19/19 02/19/19 06:59 14:59 22:59 Intake Total 80 250 150 Output Total 625 200 300 Balance -545 50 -150 Intake: IV 80 0.9 80 Oral 250 150 Output: Urine 625 200 300 Other: Voiding Method Urinal Urinal Urinal Weight 87.2 kg - Constitutional General appearance: average body habitus, cooperative, disheveled - EENT Eyes: EOMI, PERRLA, normal appearance ENT: normal oropharynx Ears: bilateral: normal - Neck Neck: normal ROM Carotids: bilateral: upstroke normal Thyroid: bilateral: normal size - Respiratory Respiratory: bilateral: diminished (The bilateral bases) - Cardiovascular Rhythm: irregularly irregular Heart sounds: normal: S1, S2 - Gastrointestinal General gastrointestinal: normal bowel sounds, soft - Integumentary Integumentary: normal - Musculoskeletal Musculoskeletal: gait normal, generalized weakness, strength equal bilaterally - Psychiatric Psychiatric: A&O x's 3, appropriate affect, intact judgment & insight Results - Laboratory Findings CBC and BMP: 02/19/19 04:28 02/19/19 04:28 PT/INR, D-dimer PT 11.8 sec (9.0-12.0) 02/16/19 20:29 INR 1.1 (<1.2) 02/16/19 20:29 D-Dimer 1.28 mg/L FEU (<0.60) H 02/16/19 20:29 Abnormal lab findings: Abnormal Labs 02/16/19 02/16/19 02/16/19 20:29 20:29 20:29 WBC 19.8 H RBC Hgb Hct MCHC RDW 16.4 H Neutrophils # 17.3 H D-Dimer 1.28 H Potassium 5.6 H Chloride Carbon Dioxide 18 L BUN 89 H Creatinine 3.98 H Glucose 150 H POC Glucose (mg/dL) Plasma Lactic Acid Dario AST 15 L ALT 19 L Alkaline Phosphatase 127 H Troponin I Urine Protein Ur Leukocyte Esterase Urine WBC Hyaline Casts Urine Mucus 02/16/19 02/17/19 02/17/19 20:29 01:30 02:09 WBC RBC Hgb Hct MCHC RDW Neutrophils # D-Dimer Potassium Chloride Carbon Dioxide BUN Creatinine Glucose POC Glucose (mg/dL) Plasma Lactic Acid Dario 2.2 H* AST ALT Alkaline Phosphatase Troponin I 0.076 H* Urine Protein Trace H Ur Leukocyte Esterase Trace H Urine WBC 6 H Hyaline Casts 117 H Urine Mucus Rare H 02/17/19 02/17/19 02/17/19 02:09 02:09 04:37 WBC 17.2 H RBC Hgb 11.7 L Hct 36.6 L MCHC RDW 16.5 H Neutrophils # 14.4 H D-Dimer Potassium 5.4 H Chloride 110 H Carbon Dioxide BUN 94 H Creatinine 4.13 H Glucose POC Glucose (mg/dL) Plasma Lactic Acid Dario AST ALT Alkaline Phosphatase Troponin I 0.082 H* Urine Protein Ur Leukocyte Esterase Urine WBC Hyaline Casts Urine Mucus 02/17/19 02/17/19 02/17/19 06:35 06:35 12:22 WBC 14.3 H RBC 4.14 L Hgb 11.3 L Hct 35.1 L MCHC RDW 16.6 H Neutrophils # D-Dimer Potassium Chloride 110 H 111 H Carbon Dioxide 21 L BUN 95 H Creatinine 4.04 H Glucose POC Glucose (mg/dL) Plasma Lactic Acid Dario AST ALT Alkaline Phosphatase Troponin I Urine Protein Ur Leukocyte Esterase Urine WBC Hyaline Casts Urine Mucus 02/17/19 02/17/19 02/17/19 12:22 16:49 16:51 WBC RBC Hgb Hct MCHC RDW Neutrophils # D-Dimer Potassium Chloride Carbon Dioxide BUN Creatinine Glucose POC Glucose (mg/dL) 44 L 42 L Plasma Lactic Acid Dario AST ALT Alkaline Phosphatase Troponin I 0.071 H* Urine Protein Ur Leukocyte Esterase Urine WBC Hyaline Casts Urine Mucus 02/17/19 02/17/19 02/17/19 17:11 17:35 20:32 WBC RBC Hgb Hct MCHC RDW Neutrophils # D-Dimer Potassium Chloride Carbon Dioxide BUN Creatinine Glucose POC Glucose (mg/dL) 57 L 72 L 56 L Plasma Lactic Acid Dario AST ALT Alkaline Phosphatase Troponin I Urine Protein Ur Leukocyte Esterase Urine WBC Hyaline Casts Urine Mucus 02/17/19 02/18/19 02/18/19 20:57 04:10 04:10 WBC RBC Hgb 11.4 L Hct 37.7 L MCHC 30.2 L RDW 16.3 H Neutrophils # D-Dimer Potassium Chloride 110 H Carbon Dioxide 21 L BUN 86 H Creatinine 3.80 H Glucose 63 L POC Glucose (mg/dL) 72 L Plasma Lactic Acid Dario AST ALT Alkaline Phosphatase Troponin I Urine Protein Ur Leukocyte Esterase Urine WBC Hyaline Casts Urine Mucus 02/18/19 02/18/19 02/18/19 05:29 11:34 11:58 WBC RBC Hgb Hct MCHC RDW Neutrophils # D-Dimer Potassium Chloride Carbon Dioxide BUN Creatinine Glucose POC Glucose (mg/dL) 74 L 63 L 71 L Plasma Lactic Acid Dario AST ALT Alkaline Phosphatase Troponin I Urine Protein Ur Leukocyte Esterase Urine WBC Hyaline Casts Urine Mucus 02/18/19 02/18/19 02/19/19 17:05 20:42 04:28 WBC RBC Hgb 11.9 L Hct 37.6 L MCHC RDW 16.8 H Neutrophils # D-Dimer Potassium Chloride Carbon Dioxide BUN Creatinine Glucose POC Glucose (mg/dL) 123 H 135 H Plasma Lactic Acid Dario AST ALT Alkaline Phosphatase Troponin I Urine Protein Ur Leukocyte Esterase Urine WBC Hyaline Casts Urine Mucus 02/19/19 02/19/19 02/19/19 04:28 11:57 16:58 WBC RBC Hgb Hct MCHC RDW Neutrophils # D-Dimer Potassium Chloride 110 H Carbon Dioxide BUN 82 H Creatinine 3.56 H Glucose POC Glucose (mg/dL) 106 H 144 H Plasma Lactic Acid Dario AST ALT Alkaline Phosphatase Troponin I Urine Protein Ur Leukocyte Esterase Urine WBC Hyaline Casts Urine Mucus - Diagnostic Findings Chest x-ray: report reviewed, image reviewed (Bilateral basal diffuse interstitial infiltrates are still more of a congestive heart failure) Assessment and Plan Assessment: Acute systolic heart failure with severe cardiomyopathy baseline ejection fraction 20% status post AICD placement Acute hypoxic respiratory failure Interstitial lung disease Acute on chronic renal failure Baseline chronic stage III with slight worsening of renal function Chronic atrial fibrillation Type 2 diabetes mellitus Lymphoma in remission Plan: Agree with transfer patient out of the ICU Continue supplemental oxygen Continue medications for gout and generalized anxiety disorder For A. fib continue aspirin and amiodarone Gentle diuresis with Lasix DVT prophylaxis with subcu heparin Sliding scale insulin Continue Synthroid Peptic ulcer disease prophylaxis Further management and plan of care as per clinical response of the patient Doubt pneumonia agree with discontinuing the Levaquin and observe off of antibiotics Time with Patient: Greater than 30
[2019-02-19 20:25] LABS: Glucose,Whole Blood 222 mg/dL (75-99)
--- NOTE | 2019-02-19 21:36 | PN ---
PROGRESS NOTE The patient is seen for followup for acute kidney injury on top of chronic kidney disease. He was admitted to the hospital with shortness of breath. The patient also had an elevated white count and lactic acidosis. He received a small amount of IV fluid in the ER following which he is being diuresed. Currently maintained on Lasix 40 mg IV q.12 hours. Overall, patient is feeling better. His renal function has improved as well. Creatinine down from 4.1 to 3.56 mg/dL today. Patient continues to have good urine output. PHYSICAL EXAMINATION: On examination today, blood pressure was 115/49, heart rate 60 per minute. He is afebrile. Examination of the heart S1, S2. Examination lungs bilateral breath sounds are heard. Abdomen is soft, nontender. Examination lower extremities shows no evidence of edema. [employer] exam is grossly intact. LAB: Shows sodium 144, potassium 4.4, BUN 82, serum creatinine 3.56, hemoglobin 11.9 g/dL. ASSESSMENT: 1. Acute kidney injury, cardiorenal, currently improving. 2. Volume overload, congestive heart failure, acute on top of chronic mainly systolic currently improved. 3. Lactic acidosis on initial admission, now resolved. 4. Possible pneumonia maintained on antibiotics. 5. Chronic kidney disease stage IV secondary to nephrosclerosis. Baseline creatinine about 2.2 -2.8 mg/dL. 6. History of paroxysmal atrial fibrillation. 7. Ischemic cardiomyopathy with ejection fraction less than 20%. PLAN: Continue with IV Lasix. Will possibly switch to p.o. Lasix tomorrow. Renal function continues to improve. Chest x-ray from yesterday still showed interstitial edema and pleural effusions. MMODL / IJN: [id number] /
[2019-02-20 04:55] LABS: Anisocytosis Slight; Basophils # (A) 0.1 k/uL (0-0.2); Basophils % (A) 1 %; Eosinophils # (A) 0.4 k/uL (0-0.7); Eosinophils % (A) 4 %; HCT 38.4 % (39.0-53.0); HGB 12.2 gm/dL (13.0-17.5); Lymphocytes # (A) 1.7 k/uL (1.0-4.8); Lymphocytes % (A) 19 %; MCHC 31.8 g/dL (31.0-37.0); Mean Platelet Volume 7.2; Monocytes # (A) 0.6 k/uL (0-1.0); Monocytes % (A) 7 %; Neutrophils # (A) 6.1 k/uL (1.3-7.7); Neutrophils % (A) 68 %; Platelet Count 190 k/uL (150-450); RBC 4.52 m/uL (4.30-5.90); RDW 16.3 % (11.5-15.5)
[2019-02-20 04:57] LABS: Calcium 9.1 mg/dL (8.4-10.2); Potassium 4.4 mmol/L (3.5-5.1)
[2019-02-20] MEDS: LEVOTHYROXINE 100 MCG TAB PO SCH (06:33)
[2019-02-20] MEDS: PANTOPRAZOLE 40 MG TABLET PO SCH ×2 (06:33→17:51)
[2019-02-20] MEDS: INSULIN ASPART (NovoLOG) 100 UNIT/ML VIAL SQ SCH ×4 (06:37→21:53)
[2019-02-20 06:38] LABS: Glucose,Whole Blood 147 mg/dL (75-99)
--- NOTE | 2019-02-20 07:40 | XR ---
EXAMINATION TYPE: XR chest 1V portable DATE OF EXAM: 02/20/2019 COMPARISON: Prior chest x-ray 02/18/2019 HISTORY: Congestive heart failure TECHNIQUE: Single frontal view of the chest is obtained. FINDINGS: Heart size is stable, patient is post median sternotomy. Intracardiac defibrillator leads, Port-A-Cath are stable. Fractured sternal wire again noted. There is no pneumothorax. Interstitium i s increased. Left hemidiaphragm is obscured. IMPRESSION: Possible pulmonary venous hypertension and interstitial edema. Correlate for possible le ft lower lobe atelectasis, pneumonia, effusion, there may be chronic pleural reaction.
--- NOTE | 2019-02-20 08:50 | PN ---
PROGRESS NOTE Mr. Patel is an 83-year-old male with a known history of coronary artery disease, history of severe cardiomyopathy, status post Bi V ICD implantation who presented with exacerbation of systolic heart failure. He is feeling better today. His breathing is stable. He is denying any chest pain. He denies any dizziness or palpitation. He denies any nausea. He is lying supine without any difficulty. He is in sinus mechanism and hemodynamically stable. He continues to be on amiodarone 100 mg daily, aspirin once a day, Lasix 40 mg IV q.12 hours, metoprolol tartrate 25 mg twice a day. PHYSICAL EXAMINATION: Blood pressure 110/50 with a heart rate in 60s. LUNGS: No wheezes or rales appreciated. HEART: Regular rate and rhythm. S1, S2. No S3. No rub. ABDOMEN: Soft, nontender. EXTREMITIES: No edema. Chest x-ray shows small effusion on the left side with mild congestion. His x-ray has improved in comparison to yesterday. IMPRESSION: 1. Heart failure with systolic dysfunction, improving. 2. History of ischemic cardiomyopathy, status post ICD Bi V implant. 3. Paroxysmal atrial fibrillation. 4. Renal failure, stabilizing. RECOMMENDATION: I will switch him to oral diuretics, increase his level of activity, follow his renal function. I am hopeful that if he is stable, he may be able to be discharged home in the next 24 to 48 hours. FAISALL / TURNERN: [id number] /
[2019-02-20] MEDS: ASPIRIN 81 MG PO SCH (10:37)
[2019-02-20] MEDS: FUROSEMIDE 40 MG TAB PO SCH ×2 (10:37→15:13)
[2019-02-20] MEDS: ALLOPURINOL 100 MG TAB PO SCH (10:37)
[2019-02-20] MEDS: HEPARIN SODIUM,PORCINE 5,000 UNIT/ML 1 ML VIAL SQ SCH ×2 (10:37→20:45)
[2019-02-20] MEDS: CHOLECALCIFEROL 1,000 UNIT TAB PO SCH (10:37)
[2019-02-20] MEDS: AMIODARONE 100 MG TAB PO SCH (10:37)
[2019-02-20] MEDS: METOPROLOL TARTRATE 25 MG TAB PO SCH ×2 (10:37→20:45)
--- NOTE | 2019-02-20 10:49 | PN ---
PROGRESS NOTE DATE OF SERVICE: 02/20/2019 An 83-year-old male seen by my partner in evaluation over the weekend. The patient was admitted on February 17. At that time, he thought the patient had heart failure that was acute on chronic in nature. He has systolic heart failure as his ejection fraction by echocardiogram is about 20%. The patient was thought to have pneumonia, but that was not likely a proper diagnosis. Anyway, the patient did have some transient hypotension, which resolved. He does have a history of chronic kidney disease, stage III, lactic acidemia secondary to hypoperfusion, chronic atrial fibrillation, type 2 diabetes mellitus, benign essential hypertension, CAD with previous [place] and bypass grafting, hypothyroidism, and previous AICD placement for LV dysfunction. Currently, the patient is on room air. He is not receiving any IV fluids. He has Lasix 40 twice a day, IV could be switched to Lasix 40 p.o. b.i.d. The patient has no complaints. He is lying flat in bed. Denies any shortness of breath, chest tightness, wheezing, cough, phlegm production, chest pain or pressure. Current vital signs are good, temperature 97.9, heart rate 64, respiratory rate 16, blood pressure 110/58 mean 70, room air saturation 93%. Appears in no acute distress. HEENT: Examination is grossly unremarkable. Mucous membranes are moist. No oral lesions. NECK: Supple. Full range of motion. No adenopathy, thyromegaly or neck vein distention. CARDIOVASCULAR: Examination reveals regular rhythm and rate. S1, S2 normal. No S3, S4, or murmur. Heart sounds are distant. LUNGS: Reveal mostly clear breath sounds. Maybe some slight crackles at the bases. No rhonchi or wheezes. ABDOMEN: Soft. Bowel sounds are heard. EXTREMITIES: Intact. No cyanosis, clubbing, or significant edema. SKIN: Without rash. NEUROLOGIC: Examination is brief but nonfocal. LABORATORY STUDIES: White count 9, hemoglobin 12.2, hematocrit 38.4, platelet count 198,000. Sodium 140, potassium 4.4, chloride 106, CO2 is 23, anion gap is 11, BUN and creatinine were 85 and 3.36. A chest x-ray was done on February 20. It showed some mild interstitial edema and mild fluid overload. There is bilateral pleural effusion. Microbiologic studies are negative. Medications are reviewed. ASSESSMENT: 1. Acute on chronic systolic heart failure in a patient with severe cardiomyopathy and ejection fraction of about 20%. 2. No strong evidence of pneumonia. 3. Hypotension, transient, secondary to systolic dysfunction and atrial fibrillation. 4. Acute on chronic renal failure with stage III chronic kidney disease. 5. Lactic acidemia secondary to hypoperfusion with left ventricular dysfunction. 6. Chronic atrial fibrillation. 7. Type 2 diabetes mellitus. 8. History of hypertension. 9. History of coronary artery disease with previous myocardial infarction and bypass grafting. 10.Hypothyroidism. 11.Status post AICD placement. PLAN: All-in-all, Mr. Patel is doing well. He has been weaned down to room air. He has got no IV fluids. The patient's Lasix IV 40 twice a day will be switched to oral Lasix 40 twice a day. The patient could be discharged out of the unit to [address] [place] [address]. The patient's respiratory status seems to be relatively stable. Chest x-ray still shows some mild fluid overload and small pleural effusions. Additional recommendations and suggestions are forthcoming. Medications, labs, allergies, problem list are all reviewed. MMODL / IJN: [id number] /
[2019-02-20 12:10] LABS: Glucose,Whole Blood 137 mg/dL (75-99)
--- NOTE | 2019-02-20 14:02 | PN ---
PROGRESS NOTE REASON FOR REQUEST: Patient is seen for followup for acute kidney injury on top of chronic kidney disease. He was admitted to the hospital with CHF, volume overload. Patient is currently being diuresed. He did have an elevated lactic acid and white count as well. Patient is maintained on antibiotics, so far cultures are negative. He is a improved significantly with serum creatinine down to 3.36 from 4.1 on initial admission. PHYSICAL EXAMINATION: On examination today, blood pressure was 110/51, heart rate 61 per minute, patient is afebrile. Examination of the heart, S1, S2. Examination of the lungs, bilateral breath sounds are heard. Abdomen is soft, non-tender. Examination of the lower extremities shows no evidence of edema. [employer] exam is grossly intact. LABS: Show sodium 140, potassium 4.4, chloride 106, BUN 85, serum creatinine 3.36, hemoglobin 12.2 g/dL. ASSESSMENT: 1. Acute kidney injury, mainly cardiorenal, currently improving. 2. Chronic kidney disease, NKF stage IV, secondary to nephrosclerosis. Baseline creatinine around 2.2-2.8 mg/dL. 3. History of paroxysmal atrial fibrillation. 4. Ischemic cardiomyopathy. Ejection fraction less than 20%. 5. Lactic acidosis on initial admission, currently resolved. 6. Possible pneumonia maintained on antibiotics. PLAN: Can switch Lasix to p.o. and patient is stable for discharge from Nephrology standpoint. He should follow up as outpatient for CKD. MMTORIEL / TURNERN: [id number] /
[2019-02-20 17:00] LABS: Glucose,Whole Blood 146 mg/dL (75-99)
[2019-02-20 21:53] LABS: Glucose,Whole Blood 158 mg/dL (75-99)
[2019-02-20 23:38] VITALS: RESP 16
--- NOTE | 2019-02-20 23:44 | PN ---
PROGRESS NOTE DATE OF SERVICE: 02/20/2019 This 83-year-old gentleman who was admitted with CHF, acute exacerbation, also had shortness of breath. The patient had an ejection fraction of less than 20%. The patient also had possible bilateral pneumonia. The patient is being closely monitored. Creatinine is 3.36 at this time. Cardiology is following the patient closely and recommends monitoring 24 hours more in the hospital. No chest pain. No palpitations. Past medical history reviewed. REVIEW OF SYSTEMS: CARDIOVASCULAR SYSTEM: No angina, palpitations. RESPIRATORY SYSTEM: As mentioned earlier. GI: No nausea, vomiting. : No dysuria or retention. NERVOUS SYSTEM: No numbness, weakness. CURRENT MEDICATIONS: Reviewed. They include: 1. [place] 5 mg q.6 p.r.n. 2. Zyloprim 100 mg p.o. daily. 3. Xanax 0.25 t.i.d. 4. Cordarone 100 mg p.o. daily. 5. Aspirin 81 mg daily. 6. Vitamin D3 1000 daily. 7. Lasix 40 mg p.o. b.i.d. 8. Heparin subcutaneously b.i.d. 9. Dilaudid q.6 p.r.n. 10.NovoLog before meals and at bedtime. 11.Synthroid 100 mcg p.o. daily. 12.Lopressor 25 mg p.o. b.i.d. 13.Narcan 0.2 q.2 p.r.n. 14.Protonix 40 mg b.i.d. 15.Restoril 15 mg at bedtime p.r.n. PHYSICAL EXAMINATION: Patient is alert and oriented x3. Pulse is 55, blood pressure 109/56, respiration 20, temperature 97.8, pulse ox 97% on room air. HEENT: Conjunctivae normal. Oral mucosa moist. NECK: No jugular venous distention. No carotid bruit. No lymph node enlargement. CARDIOVASCULAR SYSTEM: S1, S2 muffled. RESPIRATORY SYSTEM: Breath sounds diminished at the bases. Bilateral scattered rhonchi and crackles. ABDOMEN: Soft, non-tender. LEGS: No edema. No swelling. NERVOUS SYSTEM: Higher functions as mentioned earlier. Moves all 4 limbs. No focal motor or sensory deficit. LYMPHATICS: No lymph node palpable in neck, axillae or groin. JOINTS: No active deforming arthropathy. LABS: WBC 9, hemoglobin 12.2. Sodium 140, potassium 4.4. Creatinine is 3.36. ASSESSMENT: 1. Shortness of breath with chest pain with possible congestive heart failure, acute exacerbation, with acute on chronic systolic dysfunction, ejection fraction less than 20%. 2. Possible bilateral pneumonia. 3. Hypotension, possibly secondary to dehydration and respiratory failure. Rule out cardiogenic shock. 4. Increased creatinine with acute on chronic renal failure with acute tubular necrosis. 5. Possible cardiorenal syndrome. 6. Chronic kidney disease, stage III at baseline. 7. Increased lactic acid, possibly secondary to dehydration. 8. Increased white count. 9. History of atrial fibrillation. 10.History of coronary artery disease. 11.History of congestive heart failure. 12.Chronic obstructive pulmonary disease. 13.Diabetes mellitus, type 2. 14.Hypertension. 15.History of liver disease. 16.History of myocardial infarction. 17.History of hypothyroidism. 18.History of automated implantable cardioverter defibrillator. 19.History of coronary artery disease, coronary artery bypass grafting. 20.Remote history of nicotine dependence. 21.FULL CODE. RECOMMENDATIONS AND DISCUSSION: I recommend to continue current medications, continue with the monitoring, symptomatic treatment. Continue with cautious diuresis. Otherwise, we will continue to monitor. Repeat labs will be ordered. DVT prophylaxis. Guarded prognosis because of multiple complex medical issues. Further recommendations to follow. Increase ambulation. MMODL / IJN: [id number] /
[2019-02-21 06:08] LABS: Glucose,Whole Blood 140 mg/dL (75-99)
[2019-02-21] MEDS: INSULIN ASPART (NovoLOG) 100 UNIT/ML VIAL SQ SCH ×2 (06:23→11:42)
[2019-02-21] MEDS: LEVOTHYROXINE 100 MCG TAB PO SCH (06:23)
[2019-02-21] MEDS: PANTOPRAZOLE 40 MG TABLET PO SCH (06:23)
[2019-02-21 06:38] LABS: Anisocytosis Slight; Basophils # (A) 0.1 k/uL (0-0.2); Basophils % (A) 1 %; Eosinophils # (A) 0.4 k/uL (0-0.7); Eosinophils % (A) 4 %; HCT 38.8 % (39.0-53.0); HGB 11.9 gm/dL (13.0-17.5); Lymphocytes # (A) 1.6 k/uL (1.0-4.8); Lymphocytes % (A) 18 %; MCH 26.1 pg (25.0-35.0); MCHC 30.7 g/dL (31.0-37.0); MCV 85.1 fL (80.0-100.0); Mean Platelet Volume 7.4; Monocytes # (A) 0.6 k/uL (0-1.0); Monocytes % (A) 6 %; Neutrophils # (A) 6.2 k/uL (1.3-7.7); Neutrophils % (A) 69 %; Platelet Count 210 k/uL (150-450); RBC 4.56 m/uL (4.30-5.90)
[2019-02-21 06:47] LABS: Calcium 9.2 mg/dL (8.4-10.2); Potassium 4.3 mmol/L (3.5-5.1)
[2019-02-21] MEDS: ASPIRIN 81 MG PO SCH (08:37)
[2019-02-21] MEDS: CHOLECALCIFEROL 1,000 UNIT TAB PO SCH (08:37)
[2019-02-21] MEDS: ALLOPURINOL 100 MG TAB PO SCH (08:37)
[2019-02-21] MEDS: FUROSEMIDE 40 MG TAB PO SCH (08:38)
[2019-02-21] MEDS: METOPROLOL TARTRATE 25 MG TAB PO SCH (08:38)
[2019-02-21] MEDS: HEPARIN SODIUM,PORCINE 5,000 UNIT/ML 1 ML VIAL SQ SCH (08:40)
[2019-02-21] MEDS: AMIODARONE 100 MG TAB PO SCH (08:45)
--- NOTE | 2019-02-21 08:57 | P.PN ---
Subjective Progress Note Date: 02/21/19 Principal diagnosis: Acute on chronic systolic heart failure, pulmonary edema, ischemic cardiomyopathy ejection pressure 20%, coronary artery disease, chronic renal failure, respiratory failure acute in nature, history of lymphoma, COPD 02/21/2019, patient seen and evaluated examined during the rounds clinically he is doing much better in terms of breathing denies any shortness of breath denies any cough or sputum production labs reviewed medications reviewed, renal functions remains stable creatinine slightly improved white cell count is normalized he is complaining of right ankle pain x-ray is ordered on examination her right ankle there is no evidence of redness or erythema or edema it is tender to touch no swelling is present This is a pleasant 83-year-old gentleman with a past medical history significant for coronary artery disease, status post CABG, known ischemic cardiomyopathy based on echocardiogram was performed in 2079 showing an EF of 20%, status post bi-V ICD, chronic kidney disease, diabetes, hypertension, and dyslipidemia, was admitted to the intensive care unit with shortness of breath and possible congestive heart failure. The patient somewhat is a poor historian. He stated that for the last few days, he has been experiencing increasing in the shortness of breath as well as congestion. Beside that he was experiencing cough but without any sputum production. No fever and no chills. No lower extremities edema. And no symptoms of chest pain or chest discomfort. In the emergency room, the chest x-ray revealed findings consistent with CHF was bilateral pleural effusion. The BNP came in to be elevated. Beside that the troponin was checked and came in to be slightly abnormal. The patient clearly indicates that he did not have any symptoms of chest pain or chest discomfort. More importantly, the creatinine came in to be around [address] above the patient's baseline creatinine. Currently nephrology is on the case. The EKG showed atrial fibrillation with interventricular conduction delay seems to be nonspecific. No documented history of atrial fibrillation. Reviewing the previous medical records did not indicate that the patient was diagnosed with atrial fibrillation in the past nor he is taking any oral anticoagulation at home. The patient received one dose of Lasix IV with improvement in his symptoms. The last echocardiogram was from 2017 showing an EF of 20% with mild valvular abnormalities. The patient underwent an upgrade into bi-V ICD in May 2018 as well. Objective - Vital Signs Vital signs: Vital Signs Temp 97.6 F 02/21/19 03:32 Pulse 71 05/16/19 03:32 Resp 16 02/21/19 03:32 BP 121/56 02/21/19 03:32 Pulse Ox 98 02/21/19 03:32 Intake & Output 02/20/19 02/21/19 02/21/19 18:59 06:59 18:59 Intake Total 740 Output Total 375 501 Balance 365 -501 Weight 85.5 kg 84.5 kg Intake: Oral 740 Output: Urine 375 501 Other: Voiding Method Urinal Urinal # Voids 1 - Exam - Constitutional General appearance: average body habitus, cooperative, disheveled - EENT Eyes: EOMI, PERRLA, normal appearance ENT: normal oropharynx Ears: bilateral: normal - Neck Neck: normal ROM Carotids: bilateral: upstroke normal Thyroid: bilateral: normal size - Respiratory Respiratory: bilateral: diminished (The bilateral bases) - Cardiovascular Rhythm: irregularly irregular Heart sounds: normal: S1, S2 - Gastrointestinal General gastrointestinal: normal bowel sounds, soft - Integumentary Integumentary: normal - Musculoskeletal Musculoskeletal: gait normal, generalized weakness, strength equal bilaterally, right ankle normal in appearance, no swelling no redness somewhat tender to touch - Psychiatric Psychiatric: A&O x's 3, appropriate affect, intact judgment & insight - Labs CBC & Chem 7: 02/21/19 05:54 02/21/19 05:54 Labs: Abnormal Lab Results - Last 24 Hours (Table) 02/20/19 02/20/19 02/20/19 Range/Units 12:08 16:59 21:18 Hgb (13.0-17.5) gm/dL Hct (39.0-53.0) % MCHC (31.0-37.0) g/dL RDW (11.5-15.5) % BUN (9-20) mg/dL Creatinine (0.66-1.25) mg/dL Glucose (74-99) mg/dL POC Glucose (mg/dL) 137 H 146 H 158 H (75-99) mg/dL 02/21/19 02/21/19 02/21/19 Range/Units 05:54 05:54 06:04 Hgb 11.9 L (13.0-17.5) gm/dL Hct 38.8 L (39.0-53.0) % MCHC 30.7 L (31.0-37.0) g/dL RDW 16.0 H (11.5-15.5) % BUN 91 H (9-20) mg/dL Creatinine 3.25 H (0.66-1.25) mg/dL Glucose 135 H (74-99) mg/dL POC Glucose (mg/dL) 140 H (75-99) mg/dL Microbiology - Last 24 Hours (Table) 02/17/19 00:54 Blood Culture - Preliminary Blood No Growth after 96 hours 02/18/19 19:00 Gram Stain - Final Sputum Sputum Culture - Final Assessment and Plan Assessment: Right ankle pain Acute systolic heart failure with severe cardiomyopathy baseline ejection fraction 20% status post AICD placement Acute hypoxic respiratory failure Interstitial lung disease Acute on chronic renal failure Baseline chronic stage III with slight worsening of renal function Chronic atrial fibrillation Type 2 diabetes mellitus Lymphoma in remission Plan: Ankle x-ray Monitor off of oxygen Continue medications for gout and generalized anxiety disorder For A. fib continue aspirin and amiodarone Gentle diuresis with Lasix DVT prophylaxis with subcu heparin Sliding scale insulin Continue Synthroid Peptic ulcer disease prophylaxis Further management and plan of care as per clinical response of the patient Doubt pneumonia agree with discontinuing the Levaquin and observe off of antibiotics Time with Patient: Greater than 30
[2019-02-21] MEDS ORDERED: FUROSEMIDE 10 MG/ML 4 ML VIAL IV STA (10:03)
[2019-02-21] MEDS ORDERED: traMADol 50 MG TAB PO PRN (10:49)
--- NOTE | 2019-02-21 11:01 | P.DS ---
Providers Date of admission: 02/17/19 00:10 Attending physician: Fernanda Dalton Consults: 02/17/19 00:05 Consult Physician Urgent Consulting Provider: Silas Barrios Consult Reason/Comments: aechf Do you want consulting provider notified?: Yes Consult Physician Urgent Consulting Provider: [facility] Consult Reason/Comments: aechf, chest pain Do you want consulting provider notified?: Yes Consult Physician Urgent Consulting Provider: Mary Vaz Consult Reason/Comments: brannon/ckd Do you want consulting provider notified?: Yes 02/17/19 02:39 Consult Physician Urgent Consulting Provider: Sophie Pool Consult Reason/Comments: hypotension, aechf, brannon/ckd Do you want consulting provider notified?: Already Contacted Primary care physician: Silas Barrios Hospital Course: 83-year-old pleasant gentleman with the on systolic dysfunction EF of less than 20% came in with CHF exacerbation patient was treated with diuretic therapy clinically doing well euvolemic patient will be discharged today. Patient also has acute renal failure that may be a competent of from cardiorenal syndrome patient baseline creatinine around 2.59 around 2.5 stabilized at that level we'll repeat basic metabolic profile in 3 days patient was cleared to be discharged from nephrology perspective and the patient will be discharged on 41 twice a day of Lasix. Patient is complaining of right ankle pain, inflammation related to osteoarthritis I'll give him nonsteroidal anti-inflammatories because of the chronic kidney dysfunction I can only give him tramadol. Patient will be discharged today patient is euvolemic. Patient doesn't have significant swelling to worry about the gout. PHYSICAL EXAMINATION: GENERAL: The patient is alert and oriented x3, not in any acute distress. Well developed, well nourished. HEENT: Pupils are round and equally reacting to light. EOMI. No scleral icterus. No conjunctival pallor. Normocephalic, atraumatic. No pharyngeal erythema. No thyromegaly. CARDIOVASCULAR: S1 and S2 present. No murmurs, rubs, or gallops. PULMONARY: Chest is clear to auscultation, no wheezing or crackles. ABDOMEN: Soft, nontender, nondistended, normoactive bowel sounds. No palpable organomegaly. MUSCULOSKELETAL: No joint swelling or deformity. EXTREMITIES: No cyanosis, clubbing, or pedal edema. NEUROLOGICAL: Gross neurological examination did not reveal any focal deficits. SKIN: No rashes. other chronic medical problems hospitalization course please refer to dictation from Dr. Dalton from yesterday Patient Condition at Discharge: Serious Plan - Discharge Summary New Discharge Prescriptions: New Metoprolol Tartrate [Lopressor] 25 mg PO BID #60 tab traMADol HCl [Ultram] 50 mg PO QID PRN #20 tab PRN Reason: Pain/Discomfort Continue Aspirin EC [Ecotrin Low Dose] 81 mg PO DAILY Allopurinol [Zyloprim] 100 mg PO DAILY Cholecalciferol [Vitamin D3 (25 Mcg = 1000 Iu)] 1,000 unit PO DAILY Levothyroxine Sodium [Synthroid] 100 mcg PO DAILY Furosemide [Lasix] 40 mg PO BID #60 Amiodarone [Cordarone] 100 mg PO DAILY #90 tab glipiZIDE [Glucotrol] 5 mg PO QAM Discontinued Sacubitril/Valsartan [Entresto 24 mg-26 mg Tablet] 1 tab PO BID Discharge Medication List Aspirin EC [Ecotrin Low Dose] 81 mg PO DAILY 01/31/15 [History] Allopurinol [Zyloprim] 100 mg PO DAILY 08/14/15 [History] Cholecalciferol [Vitamin D3 (25 Mcg = 1000 Iu)] 1,000 unit PO DAILY 06/22/17 [History] Levothyroxine Sodium [Synthroid] 100 mcg PO DAILY 06/22/17 [History] Furosemide [Lasix] 40 mg PO BID #60 06/26/17 [Rx] Amiodarone [Cordarone] 100 mg PO DAILY #90 tab 05/29/18 [Rx] glipiZIDE [Glucotrol] 5 mg PO QAM 06/14/18 [History] Metoprolol Tartrate [Lopressor] 25 mg PO BID #60 tab 02/21/19 [Rx] traMADol HCl [Ultram] 50 mg PO QID PRN #20 tab 02/21/19 [Rx] Follow up Appointment(s)/Referral(s): Mary Vaz MD [STAFF PHYSICIAN] - 1 Week [facility], [NON-STAFF] - 1-2 Days Silas Barrios MD [Primary Care Provider] - 3 Days Ambulatory/Diagnostic Orders: Basic Metabolic Panel [LAB.AMB] Time Frame: 3 Days, Location: None Selected
[2019-02-21 11:22] LABS: Glucose,Whole Blood 125 mg/dL (75-99)
--- NOTE | 2019-02-21 11:30 | P.PN ---
Subjective Patient is seen in follow-up for acute kidney injury on chronic kidney disease. Patient has chronic kidney disease stage IV secondary to cardiorenal syndrome with baseline creatinine in the range of 2.2-2.8. Creatinine today is 3.25. He is maintained on Lasix 40 mg orally twice daily. Urine output is good. No vomiting or diarrhea. Patient has systolic CHF with ejection fraction of 20%. Vital signs are stable. General: The patient appeared well nourished and normally developed. HEENT: Head exam is unremarkable. Neck is without jugular venous distension. LUNGS: Lungs are clear to auscultation and percussion. Breath sounds decreased. HEART: Rate and Rhythm are regular. First and second heart sounds normal. No murmurs, rubs or gallops. ABDOMEN: Abdominal exam reveals normal bowel sounds. Non-tender and non- distended. No evidence of peritonitis. EXTREMITITES: No clubbing, cyanosis, or edema. Objective - Vital Signs Vital signs: Vital Signs Temp 97.6 F 02/21/19 03:32 Pulse 71 02/21/19 03:32 Resp 16 02/21/19 03:32 BP 121/56 02/21/19 03:32 Pulse Ox 98 02/21/19 03:32 Intake & Output 02/20/19 02/21/19 02/21/19 18:59 06:59 18:59 Intake Total 740 Output Total 375 501 Balance 365 -501 Weight 85.5 kg 84.5 kg Intake: Oral 740 Output: Urine 375 501 Other: Voiding Method Urinal Urinal # Voids 1 - Labs CBC & Chem 7: 02/21/19 05:54 02/21/19 05:54 Labs: Abnormal Lab Results - Last 24 Hours (Table) 02/20/19 02/20/19 02/20/19 Range/Units 12:08 16:59 21:18 Hgb (13.0-17.5) gm/dL Hct (39.0-53.0) % MCHC (31.0-37.0) g/dL RDW (11.5-15.5) % BUN (9-20) mg/dL Creatinine (0.66-1.25) mg/dL Glucose (74-99) mg/dL POC Glucose (mg/dL) 137 H 146 H 158 H (75-99) mg/dL 02/21/19 02/21/19 02/21/19 Range/Units 05:54 05:54 06:04 Hgb 11.9 L (13.0-17.5) gm/dL Hct 38.8 L (39.0-53.0) % MCHC 30.7 L (31.0-37.0) g/dL RDW 16.0 H (11.5-15.5) % BUN 91 H (9-20) mg/dL Creatinine 3.25 H (0.66-1.25) mg/dL Glucose 135 H (74-99) mg/dL POC Glucose (mg/dL) 140 H (75-99) mg/dL 02/21/19 Range/Units 11:21 Hgb (13.0-17.5) gm/dL Hct (39.0-53.0) % MCHC (31.0-37.0) g/dL RDW (11.5-15.5) % BUN (9-20) mg/dL Creatinine (0.66-1.25) mg/dL Glucose (74-99) mg/dL POC Glucose (mg/dL) 125 H (75-99) mg/dL Microbiology - Last 24 Hours (Table) 02/17/19 00:54 Blood Culture - Preliminary Blood No Growth after 96 hours 02/18/19 19:00 Gram Stain - Final Sputum Sputum Culture - Final Assessment and Plan Plan: Assessment: 1. Acute kidney injury mostly prerenal secondary to cardiorenal syndrome. Creatinine 3.25 today. 2. Chronic kidney disease stage IV secondary to cardiorenal syndrome with baseline creatinine in the range of 2.2-2.8. 3. Systolic CHF with ejection fraction of 20%. 4. Volume overload. Improved with diuresis. Plan: Maintain Lasix 40 mg orally twice daily. Stable for discharge from nephrology standpoint. Repeat basic metabolic panel in 2-3 days postdischarge. Follow up outpatient in the next 1 week. I advised the patient follow a low-salt diet and to monitor his weight closely at home.
[2019-02-21 11:36] VITALS: TEMP 98
[2019-02-21 11:41] VITALS: BP 103/56; PULSE 68
--- NOTE | 2019-02-21 12:03 | XR ---
Right ankle HISTORY: Right ankle pain 3 views of the right ankle There is mild soft tissue swelling. Bone mineralization, joint spaces and alignment are maintained. T here is a plantar calcaneal spur. There is an enthesophyte at the insertion Achilles tendon. No dislo cation. Question small ossific density distal level of the fibula. IMPRESSION: Mild soft tissue swelling. Difficult to exclude small chip fracture or avulsion injury di stal fibula.
--- NOTE | 2019-02-21 12:40 | P.PN ---
Subjective Progress Note Date: 02/21/19 This is a pleasant 83-year-old gentleman with a past medical history significant for coronary artery disease, status post CABG, known ischemic cardiomyopathy based on echocardiogram was performed in 2079 showing an EF of 20%, status post bi-V ICD, chronic kidney disease, diabetes, hypertension, and dyslipidemia, was admitted to the intensive care unit with shortness of breath and possible congestive heart failure. The patient somewhat is a poor historian. He stated that for the last few days, he has been experiencing increasing in the shortness of breath as well as congestion. Beside that he was experiencing cough but without any sputum production. No fever and no chills. No lower extremities edema. And no symptoms of chest pain or chest discomfort. In the emergency room, the chest x-ray revealed findings consistent with CHF was bilateral pleural effusion. The BNP came in to be elevated. Beside that the troponin was checked and came in to be slightly abnormal. The patient clearly indicates that he did not have any symptoms of chest pain or chest discomfort. More importantly, the creatinine came in to be around [address] above the patient's baseline creatinine. Currently nephrology is on the case. The EKG showed atrial fibrillation with interventricular conduction delay seems to be nonspecific. No documented history of atrial fibrillation. Reviewing the previous medical records did not indicate that the patient was diagnosed with atrial fibrillation in the past nor he is taking any oral anticoagulation at home. The patient received one dose of Lasix IV with improvement in his symptoms. The last echocardiogram was from 2017 showing an EF of 20% with mild valvular abnormalities. The patient underwent an upgrade into bi-V ICD in May 2018 as well. 02/21/2019 Patient was seen and examined this morning, overall feeling well. Denies any shortness of breath, no chest pain, no dizziness or palpitations. Blood pressure 104/50 with a heart rate of 60, 95% on room air. White blood cell count 9.0, hemoglobin 11.9, platelet count 210. Sodium 141, potassium 4.3, BUN 91 and creatinine 3.2. Objective - Vital Signs Vital signs: Vital Signs Temp 98.0 F 02/21/19 08:30 Pulse 68 02/21/19 11:10 Resp 16 02/21/19 11:10 BP 103/56 02/21/19 11:10 Pulse Ox 95 05/16/19 11:10 Intake & Output 02/20/19 02/21/19 02/21/19 18:59 06:59 18:59 Intake Total 740 Output Total 375 501 550 Balance 365 -501 -550 Weight 85.5 kg 84.5 kg Intake: Oral 740 Output: Urine 375 501 550 Other: Voiding Method Urinal Urinal Urinal # Voids 1 2 - Exam PHYSICAL EXAMINATION: GENERAL: 83-year-old gentleman in no acute distress at the time of my examination HEENT: Head is atraumatic, normocephalic. Pupils equal, round. Sclera anicteric. Conjunctiva are clear. Mucous membranes of the mouth are moist. Neck is supple. There is no elevated jugular venous pressure. No carotid bruit is heard. HEART EXAMINATION: Heart S1, S2 normal. No murmur or gallop heard. CHEST EXAMINATION: Lungs are clear to auscultation and precussion. No chest wall tenderness is noted on palpation or with deep breathing. ABDOMEN: Soft, nontender. Bowel sounds are heard. No organomegaly noted. EXTREMITIES: 2+ peripheral pulses with no evidence of peripheral edema and no calf tenderness noted. NEUROLOGIC patient is awake, alert and oriented 3 . . - Labs CBC & Chem 7: 02/21/19 05:54 02/21/19 05:54 Labs: Abnormal Lab Results - Last 24 Hours (Table) 02/20/19 02/20/19 02/21/19 Range/Units 16:59 21:18 05:54 Hgb 11.9 L (13.0-17.5) gm/dL Hct 38.8 L (39.0-53.0) % MCHC 30.7 L (31.0-37.0) g/dL RDW 16.0 H (11.5-15.5) % BUN (9-20) mg/dL Creatinine (0.66-1.25) mg/dL Glucose (74-99) mg/dL POC Glucose (mg/dL) 146 H 158 H (75-99) mg/dL 02/21/19 02/21/19 02/21/19 Range/Units 05:54 06:04 11:21 Hgb (13.0-17.5) gm/dL Hct (39.0-53.0) % MCHC (31.0-37.0) g/dL RDW (11.5-15.5) % BUN 91 H (9-20) mg/dL Creatinine 3.25 H (0.66-1.25) mg/dL Glucose 135 H (74-99) mg/dL POC Glucose (mg/dL) 140 H 125 H (75-99) mg/dL Microbiology - Last 24 Hours (Table) 02/17/19 00:54 Blood Culture - Preliminary Blood No Growth after 96 hours 02/18/19 19:00 Gram Stain - Final Sputum Sputum Culture - Final Assessment and Plan Plan: Assessment and plan #1 systolic congestive heart failure acute on chronic #2 ischemic cardio myopathy with prior by V AICD #3 paroxysmal atrial fibrillation #4 renal failure Plan From cardiology's perspective, patient may be able to be discharged home today. We will make him a follow-up appointment in the office post discharge. DNP note has been reviewed, I agree with a documented findings and plan of care. Patient was seen and examined.
== END 2019-02-21 13:45 | disposition home health service (06) | DRG 291 ==
LOC: EC 19:51 → 2SICU 02-17 00:10 → 3SCARD 02-20 14:34
PROVIDERS: ADMIT Hospitalist; ATTEND Hospitalist
DX: I13.0 Hypertensive heart and chronic kidney disease with heart failure and stage 1 through stage 4 chronic kidney disease, or unspecified chronic kidney disease (principal); I50.23 Acute on chronic systolic (congestive) heart failure; J96.01 Acute respiratory failure with hypoxia; N17.0 Acute kidney failure with tubular necrosis; J18.9 Pneumonia, unspecified organism; R57.0 Cardiogenic shock; C85.90 Non-Hodgkin lymphoma, unspecified, unspecified site; E87.2 Acidosis; J84.9 Interstitial pulmonary disease, unspecified; N18.4 Chronic kidney disease, stage 4 (severe); J44.0 Chronic obstructive pulmonary disease with (acute) lower respiratory infection; E03.9 Hypothyroidism, unspecified; E11.22 Type 2 diabetes mellitus with diabetic chronic kidney disease; E11.649 Type 2 diabetes mellitus with hypoglycemia without coma; E78.5 Hyperlipidemia, unspecified; E86.0 Dehydration; I25.10 Atherosclerotic heart disease of native coronary artery without angina pectoris; I25.5 Ischemic cardiomyopathy; I48.0 Paroxysmal atrial fibrillation; I48.2 Chronic atrial fibrillation; M19.071 Primary osteoarthritis, right ankle and foot; E87.5 Hyperkalemia; N40.1 Benign prostatic hyperplasia with lower urinary tract symptoms; Z79.82 Long term (current) use of aspirin; I25.2 Old myocardial infarction; Z79.84 Long term (current) use of oral hypoglycemic drugs; Z79.890 Hormone replacement therapy; Z79.899 Other long term (current) drug therapy; Z87.891 Personal history of nicotine dependence; Z95.1 Presence of aortocoronary bypass graft; Z95.810 Presence of automatic (implantable) cardiac defibrillator; Z98.42 Cataract extraction status, left eye; Z98.41 Cataract extraction status, right eye
CPT/HCPCS: 36415; 71045; 71046; 80048; 80051; 80053; 80202; 81001; 83605; 83735; 83880; 84484; 85025; 85027; 85379; 85610; 85730; 87040; 87070; 87086; 87205; 87502; 93005; 96361; 96365; 96366; 96375; 99285

== ENCOUNTER → 2019-05-03 | Outpatient (CLI) | payer MEDICARE ==
[2019-05-03 11:36] LABS: Anisocytosis Slight; HCT 38.8 % (39.0-53.0); HGB 11.9 gm/dL (13.0-17.5); Hypochromasia Moderate; MCH 27.5 pg (25.0-35.0); MCHC 30.7 g/dL (31.0-37.0); MCV 89.6 fL (80.0-100.0); Mean Platelet Volume 7.3; Platelet Count 237 k/uL (150-450); RBC 4.33 m/uL (4.30-5.90); WBC 9.8 k/uL (3.8-10.6)
[2019-05-03 12:20] LABS: Appearance,Urine Clear (Clear); Bilirubin,Urine Negative (Negative); Blood,Urine Negative (Negative); Color,Urine Light Yellow; Glucose,Urine (UA) Negative (Negative); Ketones,Urine Negative (Negative); Leukocyte Esterase,Urine Negative (Negative); Nitrite,Urine Negative (Negative); PH, Urine 5.5 (5.0-8.0); Protein,Urine Negative (Negative); Specific Gravity,Urine 1.009 (1.001-1.035); Urobilinogen,Urine <2.0 mg/dL (<2.0)
[2019-05-03 17:04] LABS: Iron Saturation 11.61 (15.00-50.00)
[2019-05-03 17:11] LABS: African American GFR (CKD) 29.8 (60.0-200.0); Albumin 3.8 g/dL (3.80-4.90); Albumin/Globulin Ratio 2.38 (1.60-3.17); Anion Gap 9.6 mmol/L (4.00-12.00); BUN/Creat Ratio 22.17 Ratio (12.00-20.00); Calcium 8.8 mg/dL (8.7-10.3); Carbon Dioxide 27.4 mmol/L (21.6-31.8); Globulin 1.6 g/dL (1.6-3.3); Magnesium 1.9 mg/dL (1.5-2.4); Phosphorus 2.9 mg/dL (2.4-5.1); Potassium 4.6 mmol/L (3.5-5.5); Total Bilirubin 0.4 mg/dL (0.3-1.2); Total Protein 5.4 g/dL (6.2-8.2)
[2019-05-03 17:13] LABS: Vitamin D 25 Hydroxy 29.9 ng/mL (30.0-100.0)
[2019-05-03 19:53] LABS: Total Protein,Urine Random <4.0 mg/dL (0.0-13.5)
== END | disposition home or self-care (01) ==
LOC: LABWHC1 10:17
PROVIDERS: ATTEND Nurse Practitioner Family
DX: N39.0 Urinary tract infection, site not specified (principal); N18.3 Chronic kidney disease, stage 3 (moderate); D63.1 Anemia in chronic kidney disease; R80.9 Proteinuria, unspecified; E55.9 Vitamin D deficiency, unspecified; M10.9 Gout, unspecified; N25.81 Secondary hyperparathyroidism of renal origin
CPT/HCPCS: 36415; 80053; 81003; 82306; 82570; 82728; 83540; 83550; 83735; 83970; 84100; 84156; 85027

== ENCOUNTER → 2019-08-05 | Outpatient (CLI) | payer MEDICARE ==
[2019-08-05 10:10] LABS: HCT 39.6 % (39.0-53.0); HGB 12.5 gm/dL (13.0-17.5); Hypochromasia Moderate; MCH 27.1 pg (25.0-35.0); MCHC 31.6 g/dL (31.0-37.0); MCV 85.6 fL (80.0-100.0); Mean Platelet Volume 6.9; Platelet Count 212 k/uL (150-450); RBC 4.63 m/uL (4.30-5.90); RDW 15.3 % (11.5-15.5); WBC 10.3 k/uL (3.8-10.6)
[2019-08-05 16:58] LABS: % Iron Saturation 12.72 (15.00-50.00); African American GFR (CKD) 28.1 (60.0-200.0); Albumin 3.9 g/dL (3.80-4.90); Albumin/Globulin Ratio 2.44 (1.60-3.17); Anion Gap 5.9 mmol/L (4.00-12.00); BUN/Creat Ratio 23.75 Ratio (12.00-20.00); Calcium 8.8 mg/dL (8.7-10.3); Carbon Dioxide 27.1 mmol/L (21.6-31.8); Globulin 1.6 g/dL (1.6-3.3); Magnesium 2.1 mg/dL (1.5-2.4); Phosphorus 2.6 mg/dL (2.4-5.1); Potassium 4.4 mmol/L (3.5-5.5); Total Bilirubin 0.3 mg/dL (0.3-1.2); Total Protein 5.5 g/dL (6.2-8.2); Uric Acid 5.4 mg/dL (3.7-8.7)
[2019-08-05 17:08] LABS: Ferritin 40.4 ng/mL (22.0-322.0)
== END | disposition home or self-care (01) ==
LOC: LABWHC1 09:29
PROVIDERS: ATTEND Internal Medicine
DX: N25.81 Secondary hyperparathyroidism of renal origin (principal); D63.1 Anemia in chronic kidney disease; N18.3 Chronic kidney disease, stage 3 (moderate); E55.9 Vitamin D deficiency, unspecified; M10.9 Gout, unspecified
CPT/HCPCS: 36415; 80053; 82306; 82728; 83540; 83550; 83735; 83970; 84100; 84550; 85027

== ENCOUNTER → 2020-06-02 | Outpatient (CLI) | payer MEDICARE ==
[2020-06-02 11:33] LABS: HCT 39.8 % (39.0-53.0); HGB 12.1 gm/dL (13.0-17.5); Hypochromasia Moderate; MCH 26.4 pg (25.0-35.0); MCHC 30.5 g/dL (31.0-37.0); MCV 86.7 fL (80.0-100.0); Mean Platelet Volume 7.6; Platelet Count 169 k/uL (150-450); RBC 4.59 m/uL (4.30-5.90); RDW 15.9 % (11.5-15.5); WBC 7.5 k/uL (3.8-10.6)
[2020-06-02 18:56] LABS: % Iron Saturation 10.76 (15.00-50.00); African American GFR (CKD) 28.1 (60.0-200.0); Albumin 3.9 g/dL (3.80-4.90); Albumin/Globulin Ratio 2.05 (1.60-3.17); Anion Gap 8.2 mmol/L (4.00-12.00); BUN/Creat Ratio 22.5 Ratio (12.00-20.00); Carbon Dioxide 25.8 mmol/L (21.6-31.8); Globulin 1.9 g/dL (1.6-3.3); Magnesium 1.9 mg/dL (1.5-2.4); Non-African American GFR(CKD) 24.2 (60.0-200.0); Phosphorus 2.9 mg/dL (2.4-5.1); Potassium 5.1 mmol/L (3.5-5.5); Total Bilirubin 0.4 mg/dL (0.2-1.2); Total Protein 5.8 g/dL (6.2-8.2)
[2020-06-02 19:04] LABS: Ferritin 43.8 ng/mL (22.0-322.0)
== END | disposition home or self-care (01) ==
LOC: LABWHC1 10:01
PROVIDERS: ATTEND Nurse Practitioner Family
DX: N25.81 Secondary hyperparathyroidism of renal origin (principal); D50.9 Iron deficiency anemia, unspecified; E55.9 Vitamin D deficiency, unspecified; E79.0 Hyperuricemia without signs of inflammatory arthritis and tophaceous disease; N18.3 Chronic kidney disease, stage 3 (moderate); D63.1 Anemia in chronic kidney disease; M10.9 Gout, unspecified
CPT/HCPCS: 36415; 80053; 82306; 82728; 83540; 83550; 83735; 83970; 84100; 84550; 85027

== ENCOUNTER 2022-01-28 14:04 | Inpatient (IN) | payer MEDICARE ==
[2022-01-28 15:07] LABS: Anisocytosis Slight; Basophils # (A) 0.1 k/uL (0-0.2); Basophils % (A) 1 %; Eosinophils # (A) 0.4 k/uL (0-0.7); Eosinophils % (A) 5 %; HCT 38.3 % (39.0-53.0); HGB 11.6 gm/dL (13.0-17.5); Hypochromasia Moderate; Lymphocytes # (A) 1.4 k/uL (1.0-4.8); Lymphocytes % (A) 18 %; MCH 27.9 pg (25.0-35.0); MCHC 30.2 g/dL (31.0-37.0); MCV 92.6 fL (80.0-100.0); Mean Platelet Volume 7.8; Monocytes # (A) 0.4 k/uL (0-1.0); Monocytes % (A) 5 %; Neutrophils # (A) 5.7 k/uL (1.3-7.7); Neutrophils % (A) 70 %; Platelet Count 255 k/uL (150-450); RBC 4.13 m/uL (4.30-5.90); RDW 17.2 % (11.5-15.5); WBC 8.1 k/uL (3.8-10.6)
--- NOTE | 2022-01-28 15:14 | XR ---
EXAMINATION TYPE: XR chest 1V portable DATE OF EXAM: 01/28/2022 COMPARISON: 02/20/2019 INDICATION: Dyspnea, cough TECHNIQUE: Single frontal view of the chest is obtained. FINDINGS: The heart size is enlarged. The pulmonary vasculature is prominent. Diffuse increased lung markings are present bilaterally. Sternotomy wires are in the midline. Electro albert device overlies left chest. IMPRESSION: 1. Clinical correlation recommended for congestive heart failure. Follow-up is recommended.
[2022-01-28 15:22] LABS: INR 2.4 (<1.2); Partial Thromboplastin Time 36.9 sec (22.0-30.0); Prothrombin Time 24.3 sec (9.0-12.0)
[2022-01-28 15:28] LABS: Calcium 8.6 mg/dL (8.4-10.2); Magnesium 2.2 mg/dL (1.6-2.3); Potassium 4.7 mmol/L (3.5-5.1)
--- NOTE | 2022-01-28 15:47 | ED ---
General Adult HPI - General Chief complaint: Chest Pain Stated complaint: Chest Pain/SOB Time Seen by Provider: 01/28/22 14:24 Source: patient Mode of arrival: wheelchair Limitations: no limitations - History of Present Illness Initial comments: Dictation was produced using [employer] dictation software. please excuse any grammatical, word or spelling errors. Chief Complaint: 86-year-old male with multiple comorbidities presents to the emergency department for chest pain or shortness of breath. History of Present Illness: 86-year-old male who presents emergency Department along with his for chest pain or shortness of breath. Patient has multiple comorbidities he takes and a coagulation medications. He also has history of h eart failure with ejection fraction of approximately 10-15%. Last 48 hours he's been having worsening shortness of breath and some chest pain. States that shortness of breath is more concerning this chest pain. Patient states that he has some mild chest pressure with exertion. Nonradiating not associated with diaphoresis or nausea. States that he is legs feel swollen. He feels as though he is more short of breath especially with exertion and with lying flat. He's been sleeping in a recliner. Patient recently got covered and ended up being hospitalized for several days while in [facility]. Denies any fever. Does not any active chest pain at this time. The ROS documented in this emergency department record has been reviewed and confirmed by me. Those systems with pertinent positive or negative responses have been documented in the HPI. All other systems are other negative and/or noncontributory. PHYSICAL EXAM: General Impression: Alert and oriented x3, not in acute distress HEENT: Normocephalic atraumatic, extra-ocular movements intact, pupils equal and reactive to light bilaterally, mucous membranes moist. Cardiovascular: Heart regular rate and rhythm Chest: Able to complete full sentences, no retractions, no tachypnea Abdomen: abdomen soft, non-tender, non-distended, no organomegaly Musculoskeletal: Pulses present and equal in all extremities, no peripheral edema Motor: no focal deficits noted Neurological: CN II-XII grossly intact, no focal motor or sensory deficits noted Skin: Intact with no visualized rashes Psych: Normal affect and mood ED course: 86-year-old well-appearing male presents to the emergency department for shortness of breath and chest pain. His chest pain is atypical with typical features. He has extensive history of heart failure. Does not appear to be dyspneic at the bedside. EKG shows paced rhythm without any criteria to meet sgabrbossa. Laboratory evaluation obtained. CBC, coag panel unremarkable. Metabolic panel shows sodium 146. Creatinine of 2.66 with a BUN of 45. Patient's creatinine is slightly higher than his baseline. Brain atrophy peptide is 20,000. 4 panel viral PCR is negative. Troponins 0.016. Patient has history of elevated troponin. X-ray suggests heart failure. Patient given Lasix are given patient's medical history degree of symptomatology will be admitted observation for diuresis, Cardec monitoring and cartilage consultation. Patient will be admitted to Dr. Pedraza who was on city call today. EKG interpretation: Ventricular rate 868 pacemaker, QS 140, QTc 446. No DC prolo ngation, no QTC prolongation, no ST or T-wave changes noted. Overall, this EKG is unremarkable - Related Data Home Medications Medication Instructions Recorded Confirmed Aspirin EC [Ecotrin Low Dose] 81 mg PO DAILY 01/31/15 01/28/22 Levothyroxine Sodium [Synthroid] 100 mcg PO DAILY 06/22/17 01/28/22 Allopurinol [Zyloprim] 300 mg PO HS 01/28/22 01/28/22 Cranberry Fruit Extract [Cranberry] 200 mg PO DAILY 01/28/22 01/28/22 Furosemide [Lasix] 80 mg PO DAILY 01/28/22 01/28/22 Metoprolol Tartrate [Lopressor] 50 mg PO BID 01/28/22 01/28/22 Sacubitril/Valsartan [Entresto 24 1 tab PO BID 01/28/22 01/28/22 mg-26 mg Tablet] Warfarin [Coumadin] 1.25 mg PO SUTUWEFR 01/28/22 01/28/22 Warfarin [Coumadin] 2.5 mg PO MOTHSA 01/28/22 01/28/22 calcitrioL [Calcitriol] 0.25 mcg PO COUGHLIN 01/28/22 01/28/22 Previous Rx's Medication Instructions Recorded Amiodarone [Cordarone] 100 mg PO DAILY #90 tab 05/29/18 Allergies Allergy/AdvReac Type Severity Reaction Status Date / Time No Known Allergies Allergy Verified 01/28/22 16:07 Review of Systems ROS Statement: Those systems with pertinent positive or pertinent negative responses have been documented in the HPI. ROS Other: All systems not noted in ROS Statement are negative. 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 Past Anesthesia/Blood Transfusion Reactions: No Reported Reaction Type of Cardiac Device: Permanent Pacemaker, AICD Device Placement Date:: 2004 implant/2017 gen change Past Psychological History: No Psychological Hx Reported Smoking Status: Former smoker Past Alcohol Use History: None Reported Past Drug Use History: None Reported - Past Family History Mother Family Medical History: No Reported History Additional Family Medical History / Comment(s): Mother was healthy and lived to be 86yrs old. Brother(s) Family Medical History: Cancer Father Family Medical History: Cancer Additional Family Medical History / Comment(s): Father had bone cancer. He also had "heart problems." He at the age of 82 yrs. General Exam Limitations: no limitations Course Vital Signs 01/28/22 01/28/22 14:09 14:27 Temperature 98.2 F Pulse Rate 73 60 Respiratory 18 16 Rate Blood Pressure 117/51 116/52 O2 Sat by Pulse 93 L 99 Oximetry Medical Decision Making - Lab Data Result diagrams: 01/28/22 14:54 01/28/22 14:54 Lab Results 01/28/22 01/28/22 01/28/22 Range/Units 14:54 14:54 14:54 WBC 8.1 (3.8-10.6) k/uL RBC 4.13 L (4.30-5.90) m/uL Hgb 11.6 L (13.0-17.5) gm/dL Hct 38.3 L (39.0-53.0) % MCV 92.6 (80.0-100.0) fL MCH 27.9 (25.0-35.0) pg MCHC 30.2 L (31.0-37.0) g/dL RDW 17.2 H (11.5-15.5) % Plt Count 255 (150-450) k/uL MPV 7.8 Neutrophils % 70 % Lymphocytes % 18 % Monocytes % 5 % Eosinophils % 5 % Basophils % 1 % Neutrophils # 5.7 (1.3-7.7) k/uL Lymphocytes # 1.4 (1.0-4.8) k/uL Monocytes # 0.4 (0-1.0) k/uL Eosinophils # 0.4 (0-0.7) k/uL Basophils # 0.1 (0-0.2) k/uL Hypochromasia Moderate Anisocytosis Slight PT 24.3 H (9.0-12.0) sec INR 2.4 H (<1.2) APTT 36.9 H (22.0-30.0) sec Sodium 146 H (137-145) mmol/L Potassium 4.7 (3.5-5.1) mmol/L Chloride 110 H (98-107) mmol/L Carbon Dioxide 28 (22-30) mmol/L Anion Gap 8 mmol/L BUN 45 H (9-20) mg/dL Creatinine 2.66 H (0.66-1.25) mg/dL Est GFR (CKD-EPI)AfAm 24 (>60 ml/min/1.73 sqM) Est GFR (CKD-EPI)NonAf 21 (>60 ml/min/1.73 sqM) Glucose 125 H (74-99) mg/dL Plasma Lactic Acid Dario (0.7-2.0) mmol/L Calcium 8.6 (8.4-10.2) mg/dL Magnesium 2.2 (1.6-2.3) mg/dL Troponin I (0.000-0.034) ng/mL NT-Pro-B Natriuret Pep pg/mL Influenza Type A (PCR) (Not Detectd) Influenza Type B (PCR) (Not Detectd) RSV (PCR) (Not Detectd) SARS-CoV-2 (PCR) (Not Detectd) 01/28/22 01/28/22 01/28/22 Range/Units 14:54 14:54 14:54 WBC (3.8-10.6) k/uL RBC (4.30-5.90) m/uL Hgb (13.0-17.5) gm/dL Hct (39.0-53.0) % MCV (80.0-100.0) fL MCH (25.0-35.0) pg MCHC (31.0-37.0) g/dL RDW (11.5-15.5) % Plt Count (150-450) k/uL MPV Neutrophils % % Lymphocytes % % Monocytes % % Eosinophils % % Basophils % % Neutrophils # (1.3-7.7) k/uL Lymphocytes # (1.0-4.8) k/uL Monocytes # (0-1.0) k/uL Eosinophils # (0-0.7) k/uL Basophils # (0-0.2) k/uL Hypochromasia Anisocytosis PT (9.0-12.0) sec INR (<1.2) APTT (22.0-30.0) sec Sodium (137-145) mmol/L Potassium (3.5-5.1) mmol/L Chloride (98-107) mmol/L Carbon Dioxide (22-30) mmol/L Anion Gap mmol/L BUN (9-20) mg/dL Creatinine (0.66-1.25) mg/dL Est GFR (CKD-EPI)AfAm (>60 ml/min/1.73 sqM) Est GFR (CKD-EPI)NonAf (>60 ml/min/1.73 sqM) Glucose (74-99) mg/dL Plasma Lactic Acid Dario 1.0 (0.7-2.0) mmol/L Calcium (8.4-10.2) mg/dL Magnesium (1.6-2.3) mg/dL Troponin I 0.016 (0.000-0.034) ng/mL NT-Pro-B Natriuret Pep 34174 pg/mL Influenza Type A (PCR) (Not Detectd) Influenza Type B (PCR) (Not Detectd) RSV (PCR) (Not Detectd) SARS-CoV-2 (PCR) (Not Detectd) 01/28/22 Range/Units 15:09 WBC (3.8-10.6) k/uL RBC (4.30-5.90) m/uL Hgb (13.0-17.5) gm/dL Hct (39.0-53.0) % MCV (80.0-100.0) fL MCH (25.0-35.0) pg MCHC (31.0-37.0) g/dL RDW (11.5-15.5) % Plt Count (150-450) k/uL MPV Neutrophils % % Lymphocytes % % Monocytes % % Eosinophils % % Basophils % % Neutrophils # (1.3-7.7) k/uL Lymphocytes # (1.0-4.8) k/uL Monocytes # (0-1.0) k/uL Eosinophils # (0-0.7) k/uL Basophils # (0-0.2) k/uL Hypochromasia Anisocytosis PT (9.0-12.0) sec INR (<1.2) APTT (22.0-30.0) sec Sodium (137-145) mmol/L Potassium (3.5-5.1) mmol/L Chloride (98-107) mmol/L Carbon Dioxide (22-30) mmol/L Anion Gap mmol/L BUN (9-20) mg/dL Creatinine (0.66-1.25) mg/dL Est GFR (CKD-EPI)AfAm (>60 ml/min/1.73 sqM) Est GFR (CKD-EPI)NonAf (>60 ml/min/1.73 sqM) Glucose (74-99) mg/dL Plasma Lactic Acid Dario (0.7-2.0) mmol/L Calcium (8.4-10.2) mg/dL Magnesium (1.6-2.3) mg/dL Troponin I (0.000-0.034) ng/mL NT-Pro-B Natriuret Pep pg/mL Influenza Type A (PCR) Not Detected (Not Detectd) Influenza Type B (PCR) Not Detected (Not Detectd) RSV (PCR) Not Detected (Not Detectd) SARS-CoV-2 (PCR) Not Detected (Not Detectd) Disposition Clinical Impression: Heart failure Disposition: ADMITTED IP TO THIS HOSP Condition: Fair Referrals: Ali,Silas, MD [Primary Care Provider] - 1-2 days Decision Time: 17:23
[2022-01-28] MEDS ORDERED: FUROSEMIDE 10 MG/ML 4 ML VIAL IV SCH (17:30)
[2022-01-29] MEDS: FUROSEMIDE 80 MG TAB PO SCH ×2 (09:09→16:34)
[2022-01-29 09:43] VITALS: BMI 24.3
[2022-01-29] MEDS: AMIODARONE 100 MG TAB PO SCH (11:46)
[2022-01-29] MEDS: SACUBITRIL/VALSARTAN 24 MG-26 MG TABLET PO SCH ×2 (11:46→21:09)
[2022-01-29] MEDS: METOPROLOL TARTRATE 50 MG TAB PO SCH ×2 (11:46→21:10)
--- NOTE | 2022-01-29 12:42 | P.CNPUL ---
History of Present Illness Consult date: 01/29/22 Reason for consult: dyspnea, hypoxemia, pleural effusion Chief complaint: Shortness of breath for 2-3 days with increased swelling of the lower extre History of present illness: Patient is 86-year-old male well-known to me with prior medical history of lymphoma and chronic systolic heart failure with baseline ejection fraction about 10-15%, patient has chronic pleural effusion which has been tapped multiple times around to be diagnostic pleural effusion thought to be related to lymphoma since chemotherapy and lymphoma it's subsided, patient has component of COPD he follows me in the office, has been stable using his bronchodilator as needed. Patient has a episode of chest pain and shortness of breath started a bout 2-3 days ago in addition patient was having swelling in the lower extremity, on specific questioning denies any chest pain or radiation of pain shortness of breath is present but however denies any cough or sputum production no night sweats fever or chills. No cough or loss of consciousness dizziness appetite has been good, lately have difficulty in laying down flat has been sleeping in a recliner. 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 Past Anesthesia/Blood Transfusion Reactions: No Reported Reaction Type of Cardiac Device: Permanent Pacemaker, AICD Device Placement Date:: 2004 implant/2017 gen change Past Psychological History: No Psychological Hx Reported Additional Psychological History / Comment(s): Lives in the family home with his . 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 Denies any recent travels. No recent animal exposures. Uses cane to ambulate. Pt drives. Smoking Status: Former smoker Past Alcohol Use History: None Reported Additional Past Alcohol Use History / Comment(s): Pt smoked from about 1955 unti l 1994. 1 ppd Past Drug Use History: None Reported - Past Family History Mother Family Medical History: No Reported History Additional Family Medical History / Comment(s): Mother was healthy and lived to be 86yrs old. Brother(s) Family Medical History: Cancer Father Family Medical History: Cancer Additional Family Medical History / Comment(s): Father had bone cancer. He also had "heart problems." He at the age of 82 yrs. Medications and Allergies Home Medications Medication Instructions Recorded Confirmed Type Aspirin EC [Ecotrin Low Dose] 81 mg PO DAILY 01/31/15 01/28/22 History Levothyroxine Sodium [Synthroid] 100 mcg PO DAILY 06/22/17 01/28/22 History Amiodarone [Cordarone] 100 mg PO DAILY #90 tab 05/29/18 01/28/22 Rx Allopurinol [Zyloprim] 300 mg PO HS 01/28/22 01/28/22 History Cranberry Fruit Extract [Cranberry] 200 mg PO DAILY 01/28/22 01/28/22 History Furosemide [Lasix] 80 mg PO DAILY 01/28/22 01/28/22 History Metoprolol Tartrate [Lopressor] 50 mg PO BID 01/28/22 01/28/22 History Sacubitril/Valsartan [Entresto 24 1 tab PO BID 01/28/22 01/28/22 History mg-26 mg Tablet] Warfarin [Coumadin] 1.25 mg PO SUTUWEFR 01/28/22 01/28/22 History Warfarin [Coumadin] 2.5 mg PO MOTHSA 01/28/22 01/28/22 History calcitrioL [Calcitriol] 0.25 mcg PO COUGHLIN 01/28/22 01/28/22 History Allergies Allergy/AdvReac Type Severity Reaction Status Date / Time No Known Allergies Allergy Verified 01/28/22 16:07 Physical Exam Vitals: Vital Signs Temp Pulse Pulse Resp BP BP Pulse Ox 01/29/22 06:49 97.7 F 63 18 103/49 96 01/29/22 01:24 97.7 F 72 18 116/64 100 01/28/22 21:17 98.0 F 76 16 146/74 98 01/28/22 19:43 66 20 133/63 95 01/28/22 18:03 66 20 138/63 95 01/28/22 14:27 60 16 116/52 99 01/28/22 14:09 98.2 F 73 18 117/51 93 L Intake and Output 01/28/22 01/29/22 01/29/22 22:59 06:59 14:59 Intake Total 90 Output Total 300 Balance -210 Intake: Oral 90 Output: Urine 300 Other: Voiding Method Urinal Urinal # Voids 0 1 # Bowel Movements 1 Weight 77.111 kg 77.111 kg - Constitutional General appearance: average body habitus, cooperative, disheveled - EENT Eyes: EOMI, PERRLA ENT: normal oropharynx Ears: bilateral: normal - Neck Carotids: bilateral: upstroke normal Thyroid: bilateral: normal size - Respiratory Respiratory: bilateral: rales (Bilateral fine end inspiratory) - Cardiovascular Rhythm: regular Heart sounds: normal: S1, S2 - Gastrointestinal General gastrointestinal: normal bowel sounds, soft - Integumentary +2 edema of both lower extremity Integumentary: normal - Neurologic Neurologic: CNII-XII intact - Musculoskeletal Musculoskeletal: gait normal, generalized weakness, strength equal bilaterally - Psychiatric Psychiatric: A&O x's 3, appropriate affect, intact judgment & insight Results - Laboratory Findings CBC and BMP: 01/28/22 14:54 01/28/22 14:54 PT/INR, D-dimer PT 24.3 sec (9.0-12.0) H 01/28/22 14:54 INR 2.4 (<1.2) H 01/28/22 14:54 Abnormal lab findings: Abnormal Labs 01/28/22 01/28/22 01/28/22 14:54 14:54 14:54 RBC 4.13 L Hgb 11.6 L Hct 38.3 L MCHC 30.2 L RDW 17.2 H PT 24.3 H INR 2.4 H APTT 36.9 H Sodium 146 H Chloride 110 H BUN 45 H Creatinine 2.66 H Glucose 125 H - Diagnostic Findings Chest x-ray: report reviewed, image reviewed (X-ray finding as noted above) Assessment and Plan Assessment: Acute on chronic hypoxic respiratory failure related to acute exacerbation of congestive heart failure Acute on chronic systolic heart failure Acute on chronic kidney disease Chronic paroxysmal atrial fibrillation Coronary artery disease status post CABG COPD Diabetes mellitus History of mental cell lymphoma status post chemotherapy History of thyroid disorder Plan: Gentle diuresis Hold on steroids Monitor renal functions closely Continue anticoagulation Deep breathing sense incentive spirometry Continue Synthroid amiodarone Continue Coumadin The plan of care as per clinical response of the patient Time with Patient: Greater than 30
--- NOTE | 2022-01-29 14:10 | P.CRDCN ---
History of Present Illness Consult date: 01/29/22 Consult reason: congestive heart failure History of present illness: The patient is an 86-year-old male with multiple comorbid conditions who follows with Dr. Carrera on an outpatient patient's. Patient was and [facility] yesterday undergoing routine echocardiogram, when he reported having increased shortness of breath as well as orthopnea. According to technologist, EF was consistent with previous readings and he was not noted to have a pericardial or pleural effusion. He was then instructed to proceed to the emergency room. The patient states that the shortness of breath has been progressive over the last several days. He also stated that his legs were quite swollen. DIAGNOSTICS: EKG showed ventricular paced rhythm Chest x-ray shows diffuse increased lung markings bilaterally. Lab data: WBC 8.1, hemoglobin 11.6, hematocrit 30.3, platelet 255, INR 2.4, sodium 146, potassium 4.7, BUN 45, creatinine 2.66, BNP 28,000, magnesium 2.2, troponin 0.01 Vital signs: Blood pressure 103/49, respiratory rate 18, pulse 63, temp 97.7F, SpO2 96% on 4 L nasal cannula PAST MEDICAL HISTORY: Congestive heart failure, ischemic cardiomyopathy, CAD status post CABG, chronic renal failure REVIEW OF SYSTEMS: No fever or chills. No cough or expectoration. No diaphoresis. Patient denies headache, dizziness, blurred vision, double vision. Patient denies any stomach discomfort. No nausea, vomiting. No hematochezia. No hematemesis. Denies any black stools or blood in his stools. Denies dysuria or hematuria. No muscle weakness or numbness. Positive for shortness of breath, improving. Negative for chest pain or chest pressure. Negative for palpitations. PHYSICAL EXAMINATION: This is a 86-year-old male in no apparent distress at the time of my examination. HEENT: Head is atraumatic, normocephalic. Pupils are equal, round. Sclerae anicteric. Conjunctivae are clear. Mucous membranes of the mouth are moist. Neck is supple. There is no jugular venous distention. No carotid bruit is heard. CHEST EXAMINATION: Lungs are diminished to auscultation. No chest wall tenderness is noted on palpation or with deep breathing. No wheezes or rhonchi HEART EXAMINATION: Heart regular rate and rhythm. S1, S2 heard. No murmurs, gall ops or rub. ABDOMEN: Soft, nontender. Bowel sounds are heard. No organomegaly noted. EXTREMITIES: Weak peripheral pulses. 1+ pitting edema. No calf tenderness noted. NEUROLOGIC EXAMINATION: Patient is awake, alert and oriented x3. FINAL ASSESSMENT AND PLAN: Congestive heart failure, BNP 28,000, responded to single dose of IV Lasix Shortness of breath, improving Ischemic cardiomyopathy, known EF of 20% Coronary artery disease Hypertension Chronic renal failure, baseline creatinine around 2.5 PLAN: Switch to oral Lasix; 80mg BID Resume home medications including Entresto Montior electrolytes Further recommendations based on clinical course I am dictating on behalf of Dr Edu Carrera's history/physical and assessment/plan. 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 Past Anesthesia/Blood Transfusion Reactions: No Reported Reaction Type of Cardiac Device: Permanent Pacemaker, AICD Device Placement Date:: 2004 implant/2017 gen change Past Psychological History: No Psychological Hx Reported Additional Psychological History / Comment(s): Lives in the family home with his . 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 Denies any recent travels. No recent animal exposures. Uses cane to ambulate. Pt drives. Smoking Status: Former smoker Past Alcohol Use History: None Reported Additional Past Alcohol Use History / Comment(s): Pt smoked from about 1955 until 1994. 1 ppd Past Drug Use History: None Reported - Past Family History Mother Family Medical History: No Reported History Additional Family Medical History / Comment(s): Mother was healthy and lived to be 86yrs old. Brother(s) Family Medical History: Cancer Father Family Medical History: Cancer Additional Family Medical History / Comment(s): Father had bone cancer. He also had "heart problems." He at the age of 82 yrs. Medications and Allergies Home Medications Medication Instructions Recorded Confirmed Type Aspirin EC [Ecotrin Low Dose] 81 mg PO DAILY 01/31/15 01/28/22 History Levothyroxine Sodium [Synthroid] 100 mcg PO DAILY 06/22/17 01/28/22 History Amiodarone [Cordarone] 100 mg PO DAILY #90 tab 05/29/18 01/28/22 Rx Allopurinol [Zyloprim] 300 mg PO HS 01/28/22 01/28/22 History Cranberry Fruit Extract [Cranberry] 200 mg PO DAILY 01/28/22 01/28/22 History Furosemide [Lasix] 80 mg PO DAILY 01/28/22 01/28/22 History Metoprolol Tartrate [Lopressor] 50 mg PO BID 01/28/22 01/28/22 History Sacubitril/Valsartan [Entresto 24 1 tab PO BID 01/28/22 01/28/22 History mg-26 mg Tablet] Warfarin [Coumadin] 1.25 mg PO SUTUWEFR 01/28/22 01/28/22 History Warfarin [Coumadin] 2.5 mg PO MOTHSA 01/28/22 01/28/22 History calcitrioL [Calcitriol] 0.25 mcg PO COUGHLIN 01/28/22 01/28/22 History Allergies Allergy/AdvReac Type Severity Reaction Status Date / Time No Known Allergies Allergy Verified 01/28/22 16:07 Physical Exam Vitals: Vital Signs Temp Pulse Pulse Resp BP BP Pulse Ox 01/29/22 06:49 97.7 F 63 18 103/49 96 01/29/22 01:24 97.7 F 72 18 116/64 100 01/28/22 21:17 98.0 F 76 16 146/74 98 01/28/22 19:43 66 20 133/63 95 01/28/22 18:03 66 20 138/63 95 01/28/22 14:27 60 16 116/52 99 01/28/22 14:09 98.2 F 73 18 117/51 93 L Intake and Output 01/28/22 01/29/22 01/29/22 22:59 06:59 14:59 Output Total 300 Balance -300 Output: Urine 300 Other: Voiding Method Urinal Urinal # Voids 0 1 Weight 77.111 kg Results 01/28/22 14:54 01/28/22 14:54 Cardiac Enzymes 01/28/22 Range/Units 14:54 Troponin I 0.016 (0.000-0.034) ng/mL Coagulation 01/28/22 Range/Units 14:54 PT 24.3 H (9.0-12.0) sec APTT 36.9 H (22.0-30.0) sec CBC 01/28/22 Range/Units 14:54 WBC 8.1 (3.8-10.6) k/uL RBC 4.13 L (4.30-5.90) m/uL Hgb 11.6 L (13.0-17.5) gm/dL Hct 38.3 L (39.0-53.0) % Plt Count 255 (150-450) k/uL Comprehensive Metabolic Panel 01/28/22 Range/Units 14:54 Sodium 146 H (137-145) mmol/L Potassium 4.7 (3.5-5.1) mmol/L Chloride 110 H (98-107) mmol/L Carbon Dioxide 28 (22-30) mmol/L BUN 45 H (9-20) mg/dL Creatinine 2.66 H (0.66-1.25) mg/dL Glucose 125 H (74-99) mg/dL Calcium 8.6 (8.4-10.2) mg/dL Current Medications Generic Name Dose Route Start Last Admin Trade Name Jude PRN Reason Stop Dose Admin Furosemide 80 mg 01/29/22 09:00 Furosemide 80 Mg Tab PO BID@0900,1600 MAME Intake and Output 01/28/22 01/29/22 01/29/22 22:59 06:59 14:59 Output Total 300 Balance -300 Output: Urine 300 Other: Voiding Method Urinal Urinal # Voids 0 1 Weight 77.111 kg 01/28/22 14:54 01/28/22 14:54
[2022-01-29] MEDS: WARFARIN 2.5 MG TAB PO SCH (18:12)
[2022-01-29 18:29] LABS: INR 2.7 (<1.2); Prothrombin Time 26.7 sec (9.0-12.0)
[2022-01-29 18:32] LABS: Appearance,Urine Clear (Clear); Bilirubin,Urine Negative (Negative); Blood,Urine Negative (Negative); Color,Urine Light Yellow; Glucose,Urine (UA) Negative (Negative); Ketones,Urine Negative (Negative); Leukocyte Esterase,Urine Negative (Negative); Nitrite,Urine Negative (Negative); PH, Urine 5.5 (5.0-8.0); Protein,Urine Negative (Negative); Specific Gravity,Urine 1.008 (1.001-1.035); Urobilinogen,Urine <2.0 mg/dL (<2.0)
--- NOTE | 2022-01-29 19:05 | HP ---
HISTORY AND PHYSICAL CHIEF COMPLAINT: Shortness of breath and bilateral leg swelling. HISTORY OF PRESENT ILLNESS: This 86-year-old gentleman with a past medical history of atrial fibrillation, CAD, CHF and COPD was complaining of increased shortness of breath and also bilateral leg edema. Patient came to [facility]. Chest x-ray showed significant CHF, mainly on the right side. The patient was started on diuretics. Patient was also seen by Pulmonary and Cardiology. Patient is being closely monitored. There is no history of any fever, rigors or chills. Creatinine is also elevated at 2.66, indicating chronic kidney disease, stage 3. There is no history of any fever, rigor or chills at this time. PAST MEDICAL HISTORY: History of CAD, CHF, COPD. HOME MEDICATIONS: Reviewed. They include calcitriol, Coumadin. Doses and other medications are reviewed. ALLERGIES: NONE. FAMILY HISTORY: History of cancer. SOCIAL HISTORY: Previous history of smoking. REVIEW OF SYSTEMS: Fourteen-point review of systems negative except as mentioned earlier. PHYSICAL EXAMINATION: Pulse is 65, blood pressure 111/47, respiration 16. HEENT: Conjunctivae normal. NECK: Jugular venous distention at the root of the neck. CARDIOVASCULAR: S1, S2 muffled. Ejection systolic murmur. RESPIRATION: Breath sounds diminished at the bases. Bilateral scattered rhonchi and crackles. ABDOMEN: Soft, nontender. LEGS: No edema. No swelling. NERVOUS SYSTEM: Diffusely weak. SKIN: No ulcer, rash, bleeding. JOINTS: No active deforming arthropathy. LABS: WBC 8.2, hemoglobin 11.6. Sodium 146. ASSESSMENT: 1. Congestive heart failure, acute exacerbation, with acute on chronic systolic cardiac failure. 2. Chronic kidney disease, stage 3. 3. Coumadin monitoring. 4. Atrial fibrillation. 5. Chronic obstructive pulmonary disease. 6. Diabetes mellitus, type 2. 7. Hypertension. 8. Multiple medical problems. RECOMMENDATIONS AND DISCUSSION: In this 86-year-old gentleman who presented with multiple complex medical issues, we will monitor the patient closely. Resume the home medications. I would recommend Lasix. Continue the rest of the medications. Monitor fluid and electrolyte balance closely. Closely follow with Pulmonary and Cardiology. Prognosis guarded. Further recommendations to follow. MMODL / IJN: [id number] /
[2022-01-29 20:07] LABS: INR 2.48 (0.90-1.11); Prothrombin Time 26.1 sec (9.9-11.9)
[2022-01-29] MEDS: allopurinoL 300 MG TAB PO SCH (21:10)
[2022-01-30] MEDS: LEVOTHYROXINE 100 MCG TAB PO SCH (05:52)
[2022-01-30] MEDS: METOPROLOL TARTRATE 50 MG TAB PO SCH ×2 (08:37→20:46)
[2022-01-30] MEDS: ASPIRIN 81 MG PO SCH (08:37)
[2022-01-30] MEDS: AMIODARONE 100 MG TAB PO SCH (08:37)
[2022-01-30] MEDS: SACUBITRIL/VALSARTAN 24 MG-26 MG TABLET PO SCH ×2 (08:37→20:47)
[2022-01-30] MEDS: FUROSEMIDE 80 MG TAB PO SCH (08:37)
[2022-01-30 11:39] LABS: Basophils # (A) 0.06 X 10*3/uL (0.00-0.10); Basophils % (A) 0.7 %; Eosinophils # (A) 0.48 X 10*3/uL (0.04-0.35); Eosinophils % (A) 5.6 %; HGB 10.1 g/dL (13.0-17.0); Immature Grans, Automated 0.3 %; Lymphocytes % (A) 20.9 %; MCH 27.7 pg (27.0-32.0); MCHC 28.9 g/dL (32.0-37.0); MCV 95.9 fL (80.0-97.0); Mean Platelet Volume 10.9 fL (9.5-12.2); Monocytes # (A) 0.73 X 10*3/uL (0.20-1.00); Monocytes % (A) 8.5 %; NRBC Per 100 WBC 0 /100 WBCS (0.0-0.0); Neutrophils # (A) 5.53 X 10*3/uL (1.80-7.70); Platelet Count 230 X 10*3/uL (140-440); RBC 3.65 X 10*6/uL (4.40-5.60); RDW 17.6 % (11.5-14.5); WBC 8.63 X 10*3/uL (4.50-10.00)
[2022-01-30 11:58] LABS: Albumin 3.2 g/dL (3.8-4.9); Albumin/Globulin Ratio 1.6 (1.60-3.17); Anion Gap 13.2 mmol/L (10.00-18.00); BUN/Creat Ratio 16.07 Ratio (12.00-20.00); Blood Urea Nitrogen 43.4 mg/dL (9.0-27.0); Calcium 8.6 mg/dL (8.7-10.3); Carbon Dioxide 25.8 mmol/L (20.0-27.5); Non-African American GFR(CKD) 20.7 (60.0-200.0); Potassium 4.2 mmol/L (3.5-5.5); Total Bilirubin 0.5 mg/dL (0.30-1.20); Total Protein 5.2 g/dL (6.2-8.2)
[2022-01-30 12:01] LABS: INR 2.28 (0.90-1.11); Prothrombin Time 24.1 sec (9.9-11.9)
--- NOTE | 2022-01-30 13:09 | XR ---
EXAMINATION TYPE: XR chest 1V portable DATE OF EXAM: 01/30/2022 12:25 PM COMPARISON: Multiple radiographs, with the most recent on 01/26/2022 TECHNIQUE: XR chest 1V portable Frontal view of the chest. CLINICAL INDICATION:Male, 86 years old with history of chf; FINDINGS: Lungs/Pleura: There is no evidence of focal consolidation, or pneumothorax. There is blunting of the costophrenic angles. Pulmonary vascularity: Pulmonary vascular congestion. Heart/mediastinum: Cardiomediastinal silhouette is enlarged and stable. Three lead cardiac conduction device overlying the left hemithorax with lead tips projecting over the right ventricle, right atriu m and coronary sinus. Musculoskeletal: No acute osseous pathology. Midline sternotomy wires are noted and stable. IMPRESSION: Similar Cardiomegaly, pulmonary vascular congestion and bilateral pleural effusions. 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
--- NOTE | 2022-01-30 13:15 | P.PN ---
Subjective Progress Note Date: 01/30/22 The patient is an 86-year-old male who is currently admitted to the hospital with shortness of breath. He was referred by the cardiology office after developing edema and orthopnea. He states the symptoms have significantly improved after a single dose of IV Lasix and increasing his oral dose. He states he slept comfortably overnight. No chest pain or chest pressure. No heart racing or fluttering. No dizziness or lightheadedness. GENERAL: Well-appearing, well-nourished and in no acute distress. NECK: Supple without JVD or thyromegaly. LUNGS: Breath sounds diminished to auscultation bilaterally. Respiration equal and unlabored. No wheezes, rales or rhonchi. HEART: Regular rate and rhythm without murmurs, rubs or gallops. S1 and S2 heard. EXTREMITIES: Normal range of motion, +1 pitting edema. No clubbing or cyanosis. Peripheral pulses intact and strong. VITALS: Blood pressure 125/57, pulse 68, respiratory rate 18, SpO2 98% on 2L nasal cannula, SpO2 97.8F TELEMETRY: Sinus mechanism overnight IMPRESSION: Congestive heart failure, BNP 28,000 Shortness of breath, improved Ischemic cardiomyopathy, known EF of 20% CAD Hypertension Chronic renal failure, currently at baseline PLAN: Continue furosemide 80 mg in the a.m. and 40 mg at 2 PM Continue all other cardiac medications Patient may be discharged Follow-up in office in 2-3 weeks I am dictating on behalf of Dr Edu Carrera's history/physical and assessment/plan. Objective - Vital Signs Vital signs: Vital Signs Temp 97.9 F 01/30/22 06:57 Pulse 68 01/30/22 06:57 Resp 18 01/30/22 06:57 BP 125/57 01/30/22 06:57 Pulse Ox 98 01/30/22 06:57 Intake & Output 01/29/22 01/30/22 01/30/22 18:59 06:59 18:59 Intake Total 450 240 Output Total 500 200 600 Balance -50 -200 -360 Weight 77.111 kg Intake: Oral 450 240 Output: Urine 500 200 600 Other: Voiding Method Urinal Urinal # Voids 2 1 # Bowel Movements 1 - Labs CBC & Chem 7: 01/30/22 06:48 01/30/22 06:48 Labs: Abnormal Lab Results - Last 24 Hours (Table) 01/29/22 01/29/22 Range/Units 11:24 16:49 PT 26.1 H 26.7 H (9.9-11.9) sec INR 2.48 H 2.7 H (0.90-1.11)
--- NOTE | 2022-01-30 14:33 | P.PN ---
Subjective Progress Note Date: 01/30/22 Principal diagnosis: Acute on chronic hypoxic respiratory failure related to acute exacerbation of congestive heart failure Acute on chronic systolic heart failure Acute on chronic kidney disease Chronic paroxysmal atrial fibrillation Coronary artery disease status post CABG COPD Diabetes mellitus History of mental cell lymphoma status post chemotherapy History of thyroid disorder 01/30/2022, patient seen and evaluated examined, sitting upright in chair breathing comfortably, some swelling in the lower extremity had a period which was not present in the morning when he woke up, advised to recline and use recliner, shortness of breath stable patient remains on Lasix dose being adjusted, labs reviewed well anticoagulated with an INR of 2.2, BUN/creatinine stable 43/2.7, Lasix dose has been reduced to 40 mg in the afternoon and 18 mg in the morning Patient is 86-year-old male well-known to me with prior medical history of lymphoma and chronic systolic heart failure with baseline ejection fraction about 10-15%, patient has chronic pleural effusion which has been tapped multiple times around to be diagnostic pleural effusion thought to be related to lymphoma since chemotherapy and lymphoma it's subsided, patient has component of COPD he follows me in the office, has been stable using his bronchodilator as needed. Patient has a episode of chest pain and shortness of breath started about 2-3 days ago in addition patient was having swelling in the lower extremity, on specific questioning denies any chest pain or radiation of pain shortness of breath is present but however denies any cough or sputum production no night sweats fever or chills. No cough or loss of consciousness dizziness appetite has been good, lately have difficulty in laying down flat has been sleeping in a recliner. ECG paced rhythm, labs significant for chronic kidney disease with BUN/creatinine 45/2.66 troponin was 0.016: And flow negative, chest x-ray consistent with cardiomegaly interstitial edema small trace pleural effusion Objective - Vital Signs Vital signs: Vital Signs Temp 98.2 F 01/30/22 13:53 Pulse 63 01/30/22 13:53 Resp 18 01/30/22 13:53 BP 107/64 01/30/22 13:53 Pulse Ox 92 L 01/30/22 13:53 Intake & Output 01/29/22 01/30/22 01/30/22 18:59 06:59 18:59 Intake Total 450 480 Output Total 500 200 700 Balance -50 -200 -220 Weight 77.111 kg Intake: Oral 450 480 Output: Urine 500 200 700 Other: Voiding Method Urinal Urinal # Voids 2 1 # Bowel Movements 1 - Exam - Constitutional General appearance: average body habitus, cooperative, disheveled - EENT Eyes: EOMI, PERRLA ENT: normal oropharynx Ears: bilateral: normal - Neck Carotids: bilateral: upstroke normal Thyroid: bilateral: normal size - Respiratory Respiratory: bilateral: rales (Bilateral fine end inspiratory) - Cardiovascular Rhythm: regular Heart sounds: normal: S1, S2 - Gastrointestinal General gastrointestinal: normal bowel sounds, soft - Integumentary +2 edema of both lower extremity Integumentary: normal - Neurologic Neurologic: CNII-XII intact - Musculoskeletal Musculoskeletal: gait normal, generalized weakness, strength equal bilaterally - Psychiatric Psychiatric: A&O x's 3, appropriate affect, intact judgment & insight - Labs CBC & Chem 7: 01/30/22 06:48 01/30/22 06:48 Labs: Abnormal Lab Results - Last 24 Hours (Table) 01/29/22 01/29/22 01/30/22 Range/Units 11:24 16:49 06:48 RBC (4.40-5.60) X 10*6/uL Hgb (13.0-17.0) g/dL Hct (39.6-50.0) % MCHC (32.0-37.0) g/dL RDW (11.5-14.5) % Eosinophils # (0.04-0.35) X 10*3/uL PT 26.1 H 26.7 H 24.1 H (9.9-11.9) sec INR 2.48 H 2.7 H 2.28 H (0.90-1.11) Sodium (135-145) mmol/L BUN (9.0-27.0) mg/dL Creatinine (0.6-1.5) mg/dL Est GFR (CKD-EPI)AfAm (60.0-200.0) Est GFR (CKD-EPI)NonAf (60.0-200.0) Calcium (8.7-10.3) mg/dL AST (14-35) U/L ALT (10-49) U/L Total Protein (6.2-8.2) g/dL Albumin (3.8-4.9) g/dL 01/30/22 01/30/22 Range/Units 06:48 06:48 RBC 3.65 L (4.40-5.60) X 10*6/uL Hgb 10.1 L (13.0-17.0) g/dL Hct 35.0 L (39.6-50.0) % MCHC 28.9 L (32.0-37.0) g/dL RDW 17.6 H (11.5-14.5) % Eosinophils # 0.48 H (0.04-0.35) X 10*3/uL PT (9.9-11.9) sec INR (0.90-1.11) Sodium 146 H (135-145) mmol/L BUN 43.4 H (9.0-27.0) mg/dL Creatinine 2.7 H (0.6-1.5) mg/dL Est GFR (CKD-EPI)AfAm 24.0 L (60.0-200.0) Est GFR (CKD-EPI)NonAf 20.7 L (60.0-200.0) Calcium 8.6 L (8.7-10.3) mg/dL AST 12 L (14-35) U/L ALT 9 L (10-49) U/L Total Protein 5.2 L (6.2-8.2) g/dL Albumin 3.2 L (3.8-4.9) g/dL Assessment and Plan Assessment: Acute on chronic hypoxic respiratory failure related to acute exacerbation of congestive heart failure Acute on chronic systolic heart failure Acute on chronic kidney disease Chronic paroxysmal atrial fibrillation Coronary artery disease status post CABG COPD Diabetes mellitus History of mental cell lymphoma status post chemotherapy History of thyroid disorder Plan: Gentle diuresis Hold on steroids Monitor renal functions closely Continue anticoagulation, INR well therapeutic range Deep breathing sense incentive spirometry Continue Synthroid amiodarone and other home medications Continue Coumadin The plan of care as per clinical response of the patient Time with Patient: Greater than 30
[2022-01-30] MEDS: FUROSEMIDE 40 MG TAB PO SCH (15:09)
[2022-01-30] MEDS ORDERED: WARFARIN 1.25 MG TAB PO SCH (18:00)
--- NOTE | 2022-01-30 19:35 | PN ---
PROGRESS NOTE DATE OF SERVICE: 01/30/2022 This 86-year-old gentleman who was admitted with shortness of breath and CHF is being closely monitored at this time. Most recent chest x-ray was reviewed personally by me and showed some evidence of fluid overload. The patient is on diuretics. PHYSICAL EXAMINATION: Pulse is 63, blood pressure 106/60, respiration 18. CHEST: A few scattered rhonchi. CARDIOVASCULAR: S1, S2 muffled. ABDOMEN: Soft. NERVOUS SYSTEM: No focal deficit. LABS: Creatinine is 2.7. ASSESSMENT: 1. Congestive heart failure, acute exacerbation, with acute on chronic systolic cardiac failure. 2. Chronic kidney disease, stage 3. 3. Coumadin monitoring. 4. Atrial fibrillation. 5. Chronic obstructive pulmonary disease. 6. Diabetes mellitus, type 2. 7. Hypertension. 8. Multiple medical issues. RECOMMENDATIONS AND DISCUSSION: I recommend to continue current medications, continue with the monitoring, symptomatic treatment. Continue with the diuretics. Otherwise I would also recommend closely following with Cardiology. Continue to monitor. I would also recommend a nephrology evaluation to rule out the possibility of cardiorenal syndrome. Prognosis guarded. MMODL / IJN: [id number] /
[2022-01-30] MEDS: allopurinoL 300 MG TAB PO SCH (20:47)
[2022-01-31 08:42] LABS: INR 2.4 (<1.2); Prothrombin Time 23.6 sec (9.0-12.0)
[2022-01-31 09:00] LABS: Anisocytosis Slight; Basophils # (A) 0.1 k/uL (0-0.2); Basophils % (A) 1 %; Eosinophils # (A) 0.4 k/uL (0-0.7); Eosinophils % (A) 5 %; HCT 34.2 % (39.0-53.0); HGB 10.5 gm/dL (13.0-17.5); Hypochromasia Marked; Lymphocytes # (A) 1.6 k/uL (1.0-4.8); Lymphocytes % (A) 22 %; MCH 29.3 pg (25.0-35.0); MCHC 30.7 g/dL (31.0-37.0); MCV 95.5 fL (80.0-100.0); Mean Platelet Volume 7.7; Monocytes # (A) 0.4 k/uL (0-1.0); Monocytes % (A) 6 %; Neutrophils # (A) 4.8 k/uL (1.3-7.7); Neutrophils % (A) 65 %; Platelet Count 226 k/uL (150-450); RBC 3.58 m/uL (4.30-5.90); RDW 17.5 % (11.5-15.5); WBC 7.3 k/uL (3.8-10.6)
[2022-01-31 09:19] LABS: ALT 8 U/L (4-49); AST 17 U/L (17-59); African American GFR (CKD) 25 (>60 ml/min/1.73 sqM); Albumin 2.9 g/dL (3.5-5.0); Albumin/Globulin Ratio 1.2; Alkaline Phosphatase 94 U/L (38-126); Anion Gap 9 mmol/L; Blood Urea Nitrogen 53 mg/dL (9-20); Calcium 8.3 mg/dL (8.4-10.2); Carbon Dioxide 24 mmol/L (22-30); Chloride 107 mmol/L (98-107); Globulin 2.4 g/dL; Glucose 84 mg/dL (74-99); Non-African American GFR(CKD) 21 (>60 ml/min/1.73 sqM); Potassium 4.3 mmol/L (3.5-5.1); Sodium 140 mmol/L (137-145); Total Bilirubin 0.8 mg/dL (0.2-1.3); Total Protein 5.3 g/dL (6.3-8.2)
--- NOTE | 2022-01-31 10:39 | PN ---
PROGRESS NOTE Mr. aRmone Patel sees Dr. Carrera on a regular basis. He is doing fairly well. However, he has some shortness of breath and room-air oxygen saturation is somewhat low. I am recommending that we continue his current dose of oral Lasix, increase activity, and see if his oxygen level is less than 90%. He may require home oxygen, and this will be advised further by the primary care physician or the admitting physician. He is feeling much better. His breathing is easier. Vitals are stable. There is JVD of 1 cm. No carotid bruit. S1-S2 heard normally. Short systolic murmur noted. Lungs reveal improved air entry. Abdomen is soft. Lower extremities reveal diminished pulses. There is trace edema. Central nervous system grossly within normal limits. I am recommending that we increase activity, switch him to oral Lasix, and if his oxygen levels are low, he may need home oxygen. Patient can be discharged on that today. MMODL / IJN: [id number] /
[2022-01-31 10:49] LABS: Glucose,Whole Blood 94 mg/dL (75-99)
[2022-01-31] MEDS: ASPIRIN 81 MG PO SCH (11:47)
[2022-01-31] MEDS: AMIODARONE 100 MG TAB PO SCH (11:47)
[2022-01-31] MEDS: FUROSEMIDE 80 MG TAB PO SCH (11:47)
[2022-01-31] MEDS: METOPROLOL TARTRATE 50 MG TAB PO SCH ×2 (11:47→20:43)
[2022-01-31] MEDS: LEVOTHYROXINE 100 MCG TAB PO SCH (11:47)
[2022-01-31] MEDS: SACUBITRIL/VALSARTAN 24 MG-26 MG TABLET PO SCH ×2 (11:48→20:43)
--- NOTE | 2022-01-31 12:01 | P.PN ---
Subjective Progress Note Date: 01/31/22 Principal diagnosis: Acute on chronic hypoxic respiratory failure related to acute exacerbation of congestive heart failure Acute on chronic systolic heart failure Acute on chronic kidney disease Chronic paroxysmal atrial fibrillation Coronary artery disease status post CABG COPD Diabetes mellitus History of mental cell lymphoma status post chemotherapy History of thyroid disorder 01/31/2022, patient seen eval examined during the rounds labs reviewed medications reviewed care plan discussed, patient on exertion desaturated have been assess for home oxygen is being arranged, shortness of breath slightly improved swelling in the lower extremity slightly improved as well, denies any cough congestion or chest pain, has been on diuretics with 80 mg of Lasix in the morning and 40 mg in the afternoon, labs performed today revealed stable white cell count and platelet count with stable hemoglobin well anticoagulated with Coumadin in therapeutic range, BUN/creatinine stable 53/2.64, Lasix x-ray performed yesterday shows interstitial edema along with cardiomegaly small tiny pleural effusion 01/30/2022, patient seen and evaluated examined, sitting upright in chair breathing comfortably, some swelling in the lower extremity had a period which was not present in the morning when he woke up, advised to recline and use recliner, shortness of breath stable patient remains on Lasix dose being adjusted, labs reviewed well anticoagulated with an INR of 2.2, BUN/creatinine stable 43/2.7, Lasix dose has been reduced to 40 mg in the afternoon and 18 mg in the morning Patient is 86-year-old male well-known to me with prior medical history of lymphoma and chronic systolic heart failure with baseline ejection fraction about 10-15%, patient has chronic pleural effusion which has been tapped multiple times around to be diagnostic pleural effusion thought to be related to lymphoma since chemotherapy and lymphoma it's subsided, patient has component of COPD he follows me in the office, has been stable using his bronchodilator as needed. Patient has a episode of chest pain and shortness of breath started about 2-3 days ago in addition patient was having swelling in the lower extremity, on specific questioning denies any chest pain or radiation of pain shortness of breath is present but however denies any cough or sputum production no night sweats fever or chills. No cough or loss of consciousness dizziness appetite has been good, lately have difficulty in laying down flat has been sleeping in a recliner. ECG paced rhythm, labs significant for chronic kidney disease with BUN/creatinine 45/2.66 troponin was 0.016: And flow negative, chest x-ray consistent with cardiomegaly interstitial edema small trace pleural effusion Objective - Vital Signs Vital signs: Vital Signs Temp 97.3 F L 01/31/22 02:49 Pulse 64 01/31/22 02:49 Resp 18 01/31/22 02:49 BP 98/46 01/31/22 02:49 Pulse Ox 96 01/31/22 02:49 Intake & Output 01/30/22 01/31/22 01/31/22 18:59 06:59 18:59 Intake Total 480 Output Total 700 150 Balance -220 -150 Intake: Oral 480 Output: Urine 700 150 Other: Voiding Method Urinal Urinal # Voids 1 - Exam - Constitutional General appearance: average body habitus, cooperative, disheveled - EENT Eyes: EOMI, PERRLA ENT: normal oropharynx Ears: bilateral: normal - Neck Carotids: bilateral: upstroke normal Thyroid: bilateral: normal size - Respiratory Respiratory: bilateral: rales (Bilateral fine end inspiratory) - Cardiovascular Rhythm: regular Heart sounds: normal: S1, S2 - Gastrointestinal General gastrointestinal: normal bowel sounds, soft - Integumentary +2 edema of both lower extremity Integumentary: normal - Neurologic Neurologic: CNII-XII intact - Musculoskeletal Musculoskeletal: gait normal, generalized weakness, strength equal bilaterally - Psychiatric Psychiatric: A&O x's 3, appropriate affect, intact judgment & insight - Labs CBC & Chem 7: 01/31/22 06:30 01/31/22 06:07 Labs: Abnormal Lab Results - Last 24 Hours (Table) 01/30/22 01/30/22 01/31/22 Range/Units 06:48 06:48 06:07 RBC (4.30-5.90) m/uL Hgb (13.0-17.5) gm/dL Hct (39.0-53.0) % MCHC (31.0-37.0) g/dL RDW (11.5-15.5) % PT 24.1 H (9.9-11.9) sec INR 2.28 H (0.90-1.11) Sodium 146 H (135-145) mmol/L BUN 43.4 H 53 H (9.0-27.0) mg/dL Creatinine 2.7 H 2.64 H (0.6-1.5) mg/dL Est GFR (CKD-EPI)AfAm 24.0 L (60.0-200.0) Est GFR (CKD-EPI)NonAf 20.7 L (60.0-200.0) Calcium 8.6 L 8.3 L (8.7-10.3) mg/dL AST 12 L (14-35) U/L ALT 9 L (10-49) U/L Total Protein 5.2 L 5.3 L (6.2-8.2) g/dL Albumin 3.2 L 2.9 L (3.8-4.9) g/dL 01/31/22 01/31/22 Range/Units 06:30 06:44 RBC 3.58 L (4.30-5.90) m/uL Hgb 10.5 L (13.0-17.5) gm/dL Hct 34.2 L (39.0-53.0) % MCHC 30.7 L (31.0-37.0) g/dL RDW 17.5 H (11.5-15.5) % PT 23.6 H (9.9-11.9) sec INR 2.4 H (0.90-1.11) Sodium (135-145) mmol/L BUN (9.0-27.0) mg/dL Creatinine (0.6-1.5) mg/dL Est GFR (CKD-EPI)AfAm (60.0-200.0) Est GFR (CKD-EPI)NonAf (60.0-200.0) Calcium (8.7-10.3) mg/dL AST (14-35) U/L ALT (10-49) U/L Total Protein (6.2-8.2) g/dL Albumin (3.8-4.9) g/dL Assessment and Plan Assessment: Acute on chronic hypoxic respiratory failure related to acute exacerbation of congestive heart failure Acute on chronic systolic heart failure Acute on chronic kidney disease Chronic paroxysmal atrial fibrillation Coronary artery disease status post CABG COPD Diabetes mellitus History of mental cell lymphoma status post chemotherapy History of thyroid disorder Plan: Arrange home oxygen, will arrange for portable oxygen as outpatient Gentle diuresis Hold on steroids Monitor renal functions closely Continue anticoagulation, INR well therapeutic range Deep breathing sense incentive spirometry Continue Synthroid amiodarone and other home medications Continue Coumadin The plan of care as per clinical response of the patient
[2022-01-31 12:09] LABS: Glucose,Whole Blood 126 mg/dL (75-99)
--- NOTE | 2022-01-31 14:18 | P.NPCON ---
History of Present Illness - Reason for Consult acute renal failure, chronic renal failure - History of Present Illness Reason for consultation: Acute kidney injury on chronic kidney disease History of present illness: Patient is a 86-year-old male seen in renal consultation for acute kidney injury on chronic kidney disease. Patient has chronic kidney disease stage IV with baseline creatinine in the range of 2-2.5. Creatinine is admission was 2.6 as and is fairly stable at 2.64 today. Patient presented to the hospital with shortness of breath. Patient has congestive heart failure with ejection f raction of 20%. Patient shortness of breath had been worsening for about 2 days prior to admission. He was also having chest discomfort. He currently feels well. Denies any vomiting or diarrhea. Has been voiding. Edema has improved. He is on 4 L nasal cannula. No fever or chills. No significant cough. He is currently maintained on Lasix 80 mg in the morning and 40 mg in the afternoon. Prior to admission he was taking Lasix 80 mg once daily. He is also on entresto. No history of diabetes. Denies use of nonsteroidals. No gross hematuria. UA is benign. Vital signs are stable. General: Awake and alert. No acute distress. HEENT: Head exam is unremarkable. LUNGS: Breath sounds decreased. HEART: Rate and Rhythm are regular. ABDOMEN: Soft, no distention. EXTREMITITES: 1+ edema. Past Medical History Past Medical History: Atrial Fibrillation, Coronary Artery Disease (CAD), Cancer, Heart Failure, COPD, Diabetes Mellitus, Hypertension, Liver Disease, Myocardial Infarction (IA), Thyroid Disorder Additional Past Medical History / Comment(s): See Dr Carrera's H&P,mantle cell lymphoma treated 9-10 years ago with chemo, hx pleural effusion L side with thoracentesis x2, sepsis, urinary retention, hepatitis in 1950 type unknown, diff swallowing, decreased kidney function Last Myocardial Infarction Date:: 1998 History of Any Multi-Drug Resistant Organisms: None Reported Past Surgical History: AICD, Coronary Bypass/CABG, Heart Catheterization, Pacemaker Additional Past Surgical History / Comment(s): PTCA, 1998 4 vessel CABG, cardioversion, L thoracentesis x2, colonoscopy, bone marrow bx, bilateral cataract removal, mediport. Past Anesthesia/Blood Transfusion Reactions: No Reported Reaction Type of Cardiac Device: Permanent Pacemaker, AICD Device Placement Date:: 2004 implant/2017 gen change Past Psychological History: No Psychological Hx Reported Additional Psychological History / Comment(s): Lives in the family home with his . 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 Denies any recent travels. No recent animal exposures. Uses cane to ambulate. Pt drives. Smoking Status: Former smoker Past Alcohol Use History: None Reported Additional Past Alcohol Use History / Comment(s): Pt smoked from about 1955 until 1994. 1 ppd Past Drug Use History: None Reported - Past Family History Mother Family Medical History: No Reported History Additional Family Medical History / Comment(s): Mother was healthy and lived to be 86yrs old. Brother(s) Family Medical History: Cancer Father Family Medical History: Cancer Additional Family Medical History / Comment(s): Father had bone cancer. He also had "heart problems." He at the age of 82 yrs. Medications and Allergies Home Medications Medication Instructions Recorded Confirmed Type Aspirin EC [Ecotrin Low Dose] 81 mg PO DAILY 01/31/15 01/28/22 History Levothyroxine Sodium [Synthroid] 100 mcg PO DAILY 06/22/17 01/28/22 History Amiodarone [Cordarone] 100 mg PO DAILY #90 tab 05/29/18 01/28/22 Rx Allopurinol [Zyloprim] 300 mg PO HS 01/28/22 01/28/22 History Cranberry Fruit Extract [Cranberry] 200 mg PO DAILY 01/28/22 01/28/22 History Furosemide [Lasix] 80 mg PO DAILY 01/28/22 01/28/22 History Metoprolol Tartrate [Lopressor] 50 mg PO BID 01/28/22 01/28/22 History Sacubitril/Valsartan [Entresto 24 1 tab PO BID 01/28/22 01/28/22 History mg-26 mg Tablet] Warfarin [Coumadin] 1.25 mg PO SUTUWEFR 01/28/22 01/28/22 History Warfarin [Coumadin] 2.5 mg PO MOTHSA 01/28/22 01/28/22 History calcitrioL [Calcitriol] 0.25 mcg PO COUGHLIN 01/28/22 01/28/22 History Allergies Allergy/AdvReac Type Severity Reaction Status Date / Time No Known Allergies Allergy Verified 01/28/22 16:07 Physical Exam Vitals: Vital Signs Temp Pulse Resp BP Pulse Ox 01/31/22 02:49 97.3 F L 64 18 98/46 96 01/30/22 19:35 97.7 F 51 L 17 90/42 93 L Intake and Output 01/30/22 01/31/22 01/31/22 22:59 06:59 14:59 Intake Total 222 Output Total 150 Balance -150 222 Intake: Oral 222 Output: Urine 150 Other: Voiding Method Urinal Urinal # Voids 1 1 Results - Lab Results Most recent lab results Calcium 8.3 mg/dL (8.4-10.2) L 01/31/22 06:07 Magnesium 2.2 mg/dL (1.6-2.3) 01/28/22 14:54 01/31/22 06:30 01/31/22 06:07 Assessment and Plan Plan: Assessment: 1. Mild acute kidney injury mostly prerenal secondary to cardiorenal syndrome. Creatinine stable at 2.6. UA benign. 2. Chronic kidney disease stage IV secondary to nephrosclerosis and cardiorenal syndrome with baseline creatinine the range of 2-2.5. 3. Acute on chronic systolic CHF with ejection fraction of 20%. 4. Volume overload. 5. Coronary artery disease status post CABG. Plan: Maintain oral Lasix. Advised to follow low salt diet and 40 ohms fluid resection per day upon discharge. He was also advised to monitor his weight closely at home and to call physician if edema worsens or gains more than 3 pounds in 1 week duration. Avoid nephrotoxins. Repeat labs in the morning. Check renal ultrasound. Thank you for the consultation. I will continue to follow the patient with you during his hospital stay.
[2022-01-31] MEDS: FUROSEMIDE 40 MG TAB PO SCH (14:39)
[2022-01-31] MEDS: WARFARIN 2.5 MG TAB PO SCH (17:38)
[2022-01-31 17:46] LABS: Glucose,Whole Blood 132 mg/dL (75-99)
[2022-01-31] MEDS: allopurinoL 300 MG TAB PO SCH (20:43)
[2022-01-31 21:24] LABS: Glucose,Whole Blood 156 mg/dL (75-99)
[2022-01-31 22:13] VITALS: RESP 18
[2022-02-01] MEDS: LEVOTHYROXINE 100 MCG TAB PO SCH (05:46)
[2022-02-01 07:01] VITALS: BP 100/50; TEMP 97.4
[2022-02-01 07:02] LABS: INR 2.5 (<1.2); Prothrombin Time 25.1 sec (9.0-12.0)
[2022-02-01 07:30] LABS: Glucose,Whole Blood 97 mg/dL (75-99)
--- NOTE | 2022-02-01 08:43 | US ---
EXAMINATION TYPE: US kidneys/renal and bladder DATE OF EXAM: 02/01/2022 COMPARISON: US dated 07/06/2018 CLINICAL HISTORY: brannon. EXAM MEASUREMENTS: Right Kidney: 9.3 x 4.3 x 4.7 cm Left Kidney: 12.1 x 6.1 x 5.2 cm Right Kidney: cyst measures 3.4 x 2.6 x 3.7 cm Left Kidney: cyst measures 4.8 x 4.2 x 5.4 Bladder: wnl Bilateral Jets seen: Yes There is no evidence for hydronephrosis at this point in time. No nephrolithiasis is seen. Some tiffanie ical thinning on the right is present. Redemonstration of partially exophytic benign appearing thin-w alled cysts bilaterally. The urinary bladder is adequately distended. Bilateral ureteral jets are se en. IMPRESSION: No hydronephrosis evident bilaterally. No significant change from prior.
[2022-02-01] MEDS: ASPIRIN 81 MG PO SCH (08:58)
[2022-02-01] MEDS: AMIODARONE 100 MG TAB PO SCH (08:58)
[2022-02-01] MEDS: METOPROLOL TARTRATE 50 MG TAB PO SCH (08:58)
[2022-02-01] MEDS: SACUBITRIL/VALSARTAN 24 MG-26 MG TABLET PO SCH (08:58)
[2022-02-01] MEDS: FUROSEMIDE 80 MG TAB PO SCH (08:58)
[2022-02-01 09:23] LABS: African American GFR (CKD) 25.7 (60.0-200.0); Anion Gap 12.9 mmol/L (10.00-18.00); BUN/Creat Ratio 20.55 Ratio (12.00-20.00); Blood Urea Nitrogen 52.4 mg/dL (9.0-27.0); Calcium 8.2 mg/dL (8.7-10.3); Magnesium 2.2 mg/dL (1.5-2.4); Non-African American GFR(CKD) 22.2 (60.0-200.0)
[2022-02-01 09:43] VITALS: PULSE 54
--- NOTE | 2022-02-01 09:44 | PN ---
PROGRESS NOTE This is an 86-year-old white male who is feeling better. His oxygen level drops down to 83% on room air. He is currently on 4 L oxygen. He does not have oxygen at home. He is being treated for his congestive heart failure, atrial fibrillation, possible COPD exacerbation and scar tissue in his lungs, status post COVID, exertional dyspnea. Give the patient a script for to take at home 2 puffs b.i.d. Wait for home oxygen to be set up prior to discharge. He has elevated creatinine. Ultrasound of the kidneys is being done. possibly be sent home on oxygen tomorrow, as he is ambulating better without dyspnea. His heart failure appears to be improving. Will continue him on diuretics and and possibly discharge home tomorrow when oxygen is set up. [email or web address] / TURNERN: [id number] /
--- NOTE | 2022-02-01 10:58 | P.PN ---
Subjective Patient is seen in follow-up for acute kidney injury on chronic kidney disease. Renal function stable. Denies chest pain or shortness of breath. No edema. Good urine output. Vital signs are stable. General: Awake and alert. No acute distress. HEENT: Head exam is unremarkable. LUNGS: Breath sounds decreased. HEART: Rate and Rhythm are regular. ABDOMEN: Soft, no distention. EXTREMITITES: No edema. Objective - Vital Signs Vital signs: Vital Signs Temp 97.4 F L 02/01/22 07:00 Pulse 54 L 02/01/22 09:40 Resp 18 02/01/22 09:40 BP 100/50 02/01/22 07:00 Pulse Ox 99 02/01/22 07:00 Intake & Output 01/31/22 02/01/22 02/01/22 18:59 06:59 18:59 Intake Total 340 118 Output Total 325 Balance 15 118 Intake: Oral 340 118 Output: Urine 325 Other: Voiding Method Toilet Urinal # Voids 1 1 - Labs CBC & Chem 7: 01/31/22 06:30 02/01/22 06:20 Labs: Abnormal Lab Results - Last 24 Hours (Table) 01/31/22 01/31/22 01/31/22 Range/Units 12:08 17:44 21:23 PT (9.0-12.0) sec INR (<1.2) BUN (9.0-27.0) mg/dL Creatinine (0.6-1.5) mg/dL Est GFR (CKD-EPI)AfAm (60.0-200.0) Est GFR (CKD-EPI)NonAf (60.0-200.0) BUN/Creatinine Ratio (12.00-20.00) Ratio POC Glucose (mg/dL) 126 H 132 H 156 H (75-99) mg/dL Calcium (8.7-10.3) mg/dL 02/01/22 02/01/22 Range/Units 06:20 06:20 PT 25.1 H (9.0-12.0) sec INR 2.5 H (<1.2) BUN 52.4 H (9.0-27.0) mg/dL Creatinine 2.6 H (0.6-1.5) mg/dL Est GFR (CKD-EPI)AfAm 25.7 L (60.0-200.0) Est GFR (CKD-EPI)NonAf 22.2 L (60.0-200.0) BUN/Creatinine Ratio 20.55 H (12.00-20.00) Ratio POC Glucose (mg/dL) (75-99) mg/dL Calcium 8.2 L (8.7-10.3) mg/dL Assessment and Plan Plan: Assessment: 1. Mild acute kidney injury mostly prerenal secondary to cardiorenal syndrome. Creatinine stable at 2.6. UA benign. No hydronephrosis noted on renal ultrasound. 2. Chronic kidney disease stage IV secondary to nephrosclerosis and cardiorenal syndrome with baseline creatinine the range of 2-2.5. 3. Acute on chronic systolic CHF with ejection fraction of 20%. 4. Volume overload. Improved with diuresis. 5. Coronary artery disease status post CABG. Plan: Maintain oral Lasix. Advised to follow low salt diet and 40 oz fluid resection per day upon discharge. He was also advised to monitor his weight closely at home and to call physician if edema worsens or gains more than 3 pounds in 1 week duration. Avoid nephrotoxins. Follow-up outpatient 1 week post discharge.
[2022-02-01 11:40] LABS: Glucose,Whole Blood 115 mg/dL (75-99)
--- NOTE | 2022-02-01 18:03 | P.PN ---
Subjective Progress Note Date: 02/01/22 Principal diagnosis: Acute on chronic hypoxic respiratory failure related to acute exacerbation of congestive heart failure Acute on chronic systolic heart failure Acute on chronic kidney disease Chronic paroxysmal atrial fibrillation Coronary artery disease status post CABG COPD Diabetes mellitus History of mental cell lymphoma status post chemotherapy History of thyroid disorder 02/01/2022, patient seen eval examined during the rounds labs reviewed medications reviewed shortness breath is improved, patient denies any chest pain and swelling the lower extremities improved, remains on supplemental oxygen, patient has been prescribed home oxygen assess drop down into mid 80s off of oxygen 01/31/2022, patient seen eval examined during the rounds labs reviewed med icaAtrenta reviewed care plan discussed, patient on exertion desaturated have been assess for home oxygen is being arranged, shortness of breath slightly improved swelling in the lower extremity slightly improved as well, denies any cough congestion or chest pain, has been on diuretics with 80 mg of Lasix in the morning and 40 mg in the afternoon, labs performed today revealed stable white cell count and platelet count with stable hemoglobin well anticoagulated with Coumadin in therapeutic range, BUN/creatinine stable 53/2.64, Lasix x-ray performed yesterday shows interstitial edema along with cardiomegaly small tiny pleural effusion 01/30/2022, patient seen and evaluated examined, sitting upright in chair breathing comfortably, some swelling in the lower extremity had a period which was not present in the morning when he woke up, advised to recline and use recliner, shortness of breath stable patient remains on Lasix dose being adjusted, labs reviewed well anticoagulated with an INR of 2.2, BUN/creatinine stable 43/2.7, Lasix dose has been reduced to 40 mg in the afternoon and 18 mg in the morning Patient is 86-year-old male well-known to me with prior medical history of lymphoma and chronic systolic heart failure with baseline ejection fraction about 10-15%, patient has chronic pleural effusion which has been tapped multiple times around to be diagnostic pleural effusion thought to be related to lymphoma since chemotherapy and lymphoma it's subsided, patient has component of COPD he follows me in the office, has been stable using his bronchodilator as needed. Patient has a episode of chest pain and shortness of breath started about 2-3 days ago in addition patient was having swelling in the lower extremity, on specific questioning denies any chest pain or radiation of pain shortness of breath is present but however denies any cough or sputum production no night sweats fever or chills. No cough or loss of consciousness dizziness appetite has been good, lately have difficulty in laying down flat has been sleeping in a recliner. ECG paced rhythm, labs significant for chronic kidney disease with BUN/creatinine 45/2.66 troponin was 0.016: And flow negative, chest x-ray consistent with cardiomegaly interstitial edema small trace pleural effusion Objective - Vital Signs Vital signs: Vital Signs Temp 97.4 F L 02/01/22 07:00 Pulse 54 L 02/01/22 09:40 Resp 18 02/01/22 09:40 BP 100/50 02/01/22 07:00 Pulse Ox 99 02/01/22 07:00 Intake & Output 01/31/22 02/01/22 02/01/22 18:59 06:59 18:59 Intake Total 340 118 Output Total 325 500 Balance 15 -382 Intake: Oral 340 118 Output: Urine 325 500 Other: Voiding Method Toilet Urinal # Voids 1 1 - Exam - Constitutional General appearance: average body habitus, cooperative, disheveled - EENT Eyes: EOMI, PERRLA ENT: normal oropharynx Ears: bilateral: normal - Neck Carotids: bilateral: upstroke normal Thyroid: bilateral: normal size - Respiratory Respiratory: bilateral: rales (Bilateral fine end inspiratory) - Cardiovascular Rhythm: regular Heart sounds: normal: S1, S2 - Gastrointestinal General gastrointestinal: normal bowel sounds, soft - Integumentary +2 edema of both lower extremity Integumentary: normal - Neurologic Neurologic: CNII-XII intact - Musculoskeletal Musculoskeletal: gait normal, generalized weakness, strength equal bilaterally - Psychiatric Psychiatric: A&O x's 3, appropriate affect, intact judgment & insight - Labs CBC & Chem 7: 01/31/22 06:30 02/01/22 06:20 Labs: Abnormal Lab Results - Last 24 Hours (Table) 01/31/22 02/01/22 02/01/22 Range/Units 21:23 06:20 06:20 PT 25.1 H (9.0-12.0) sec INR 2.5 H (<1.2) BUN 52.4 H (9.0-27.0) mg/dL Creatinine 2.6 H (0.6-1.5) mg/dL Est GFR (CKD-EPI)AfAm 25.7 L (60.0-200.0) Est GFR (CKD-EPI)NonAf 22.2 L (60.0-200.0) BUN/Creatinine Ratio 20.55 H (12.00-20.00) Ratio POC Glucose (mg/dL) 156 H (75-99) mg/dL Calcium 8.2 L (8.7-10.3) mg/dL 02/01/22 Range/Units 11:38 PT (9.0-12.0) sec INR (<1.2) BUN (9.0-27.0) mg/dL Creatinine (0.6-1.5) mg/dL Est GFR (CKD-EPI)AfAm (60.0-200.0) Est GFR (CKD-EPI)NonAf (60.0-200.0) BUN/Creatinine Ratio (12.00-20.00) Ratio POC Glucose (mg/dL) 115 H (75-99) mg/dL Calcium (8.7-10.3) mg/dL Assessment and Plan Assessment: Acute on chronic hypoxic respiratory failure related to acute exacerbation of congestive heart failure Acute on chronic systolic heart failure Acute on chronic kidney disease Chronic paroxysmal atrial fibrillation Coronary artery disease status post CABG COPD Diabetes mellitus History of mental cell lymphoma status post chemotherapy History of thyroid disorder Plan: Arrange home oxygen, will arrange for portable oxygen as outpatient Gentle diuresis Hold on steroids Monitor renal functions closely Continue anticoagulation, INR well therapeutic range Deep breathing sense incentive spirometry Continue Synthroid amiodarone and other home medications Continue Coumadin The plan of care as per clinical response of the patient Time with Patient: Greater than 30
== END 2022-02-01 12:51 | disposition home or self-care (01) | DRG 291 ==
LOC: EC 14:04 → 6NMEDSUR 17:21 → OBSVTOIN 01-31 13:34
PROVIDERS: ADMIT Family Medicine; ATTEND Family Medicine
DX: I13.0 Hypertensive heart and chronic kidney disease with heart failure and stage 1 through stage 4 chronic kidney disease, or unspecified chronic kidney disease (principal); I50.23 Acute on chronic systolic (congestive) heart failure; J96.21 Acute and chronic respiratory failure with hypoxia; N17.9 Acute kidney failure, unspecified; N18.4 Chronic kidney disease, stage 4 (severe); Z20.822 Contact with and (suspected) exposure to COVID-19; J44.9 Chronic obstructive pulmonary disease, unspecified; I48.0 Paroxysmal atrial fibrillation; E11.22 Type 2 diabetes mellitus with diabetic chronic kidney disease; G31.89 Other specified degenerative diseases of nervous system; E87.70 Fluid overload, unspecified; I25.10 Atherosclerotic heart disease of native coronary artery without angina pectoris; I25.2 Old myocardial infarction; I25.5 Ischemic cardiomyopathy; Z79.01 Long term (current) use of anticoagulants; Z79.82 Long term (current) use of aspirin; Z79.890 Hormone replacement therapy; Z79.899 Other long term (current) drug therapy; Z85.72 Personal history of non-Hodgkin lymphomas; Z86.16 Personal history of COVID-19; Z87.891 Personal history of nicotine dependence; Z92.21 Personal history of antineoplastic chemotherapy; Z95.1 Presence of aortocoronary bypass graft; Z95.810 Presence of automatic (implantable) cardiac defibrillator; Z98.42 Cataract extraction status, left eye; Z98.41 Cataract extraction status, right eye
CPT/HCPCS: 36415; 71045; 76770; 80048; 80053; 81003; 83605; 83735; 83880; 84484; 85025; 85610; 85730; 87636; 93005; 96374; 99285

== ENCOUNTER 2022-02-19 11:15 | Observation (INO) | payer MEDICARE ==
[2022-02-19 11:42] LABS: Glucose,Whole Blood 111 mg/dL (75-99)
[2022-02-19] MEDS ORDERED: SODIUM CHLORIDE 0.9% 500 ML 500 ML IV STA (11:49)
--- NOTE | 2022-02-19 11:54 | ED ---
General Adult HPI - General Chief complaint: Recheck/Abnormal Lab/Rx Stated complaint: Low Blood Pressure Time Seen by Provider: 02/19/22 11:25 Source: patient, family, RN notes reviewed, old records reviewed Mode of arrival: ambulatory Limitations: no limitations - History of Present Illness Initial comments: this is an 86-year-old male who presents emergency Department with the complaint of feeling extremely weak and having low blood pressure. According to the his blood pressures been running a little bit low last couple of days but this morning was excessively low. One of the patient's blood pressure 72/69 which didn't seem like a legitimate blood pressure. Patient states he felt very weak when he got up it was no focal weakness was generalized. Patient denies any recent fever or chills. Patient denies any chest pain palpitations difficulty breathing or shortness of breath. Patient denies any dysuria hematuria urinary frequency. Patient denies any recent fever or chills. Patient denies any injury or trauma. Patient states just overall he feels extremely weak. Patient states he has not taken any of his medications today. - Related Data Home Medications Medication Instructions Recorded Confirmed Aspirin EC [Ecotrin Low Dose] 81 mg PO DAILY 01/31/15 02/19/22 Levothyroxine Sodium [Synthroid] 100 mcg PO DAILY 06/22/17 02/19/22 Allopurinol [Zyloprim] 300 mg PO HS 01/28/22 02/19/22 Cranberry Fruit Extract [Cranberry] 200 mg PO DAILY 01/28/22 02/19/22 Metoprolol Tartrate [Lopressor] 50 mg PO DAILY 01/28/22 02/19/22 Sacubitril/Valsartan [Entresto 24 1 tab PO BID 01/28/22 02/19/22 mg-26 mg Tablet] Warfarin [Coumadin] 1.25 mg PO SUTUWEFR 01/28/22 02/19/22 Warfarin [Coumadin] 2.5 mg PO MOTHSA 01/28/22 02/19/22 calcitrioL [Calcitriol] 0.25 mcg PO COUGHLIN 01/28/22 02/19/22 Furosemide [Lasix] 80 mg PO DAILY 02/19/22 02/19/22 Previous Rx's Medication Instructions Recorded Amiodarone [Cordarone] 100 mg PO DAILY #90 tab 05/29/18 Furosemide [Lasix] 40 mg PO DAILY@1400 90 Days #90 tab 01/31/22 Allergies Allergy/AdvReac Type Severity Reaction Status Date / Time No Known Allergies Allergy Verified 02/19/22 12:59 Review of Systems ROS Statement: Those systems with pertinent positive or pertinent negative responses have been documented in the HPI. ROS Other: All systems not noted in ROS Statement are negative. Past Medical History Past Medical History: Atrial Fibrillation, Coronary Artery Disease (CAD), Cancer, Heart Failure, COPD, Diabetes Mellitus, Hypertension, Liver Disease, Myocardial Infarction ([place]), Thyroid Disorder Additional Past Medical History / Comment(s): See Dr Carrera's H&P,mantle cell lymphoma treated 9-10 years ago with chemo, hx pleural effusion L side with thoracentesis x2, sepsis, urinary retention, hepatitis in 1950 type unknown, diff swallowing, decreased kidney function Last Myocardial Infarction Date:: 1998 History of Any Multi-Drug Resistant Organisms: None Reported Past Surgical History: AICD, Coronary Bypass/CABG, Heart Catheterization, Pacema ker Additional Past Surgical History / Comment(s): PTCA, 1998 4 vessel CABG, cardioversion, L thoracentesis x2, colonoscopy, bone marrow bx, bilateral cataract removal, mediport. Past Anesthesia/Blood Transfusion Reactions: No Reported Reaction Type of Cardiac Device: Permanent Pacemaker, AICD Device Placement Date:: 2004 implant/2017 gen change Past Psychological History: No Psychological Hx Reported Smoking Status: Former smoker Past Alcohol Use History: None Reported Past Drug Use History: None Reported - Past Family History Mother Family Medical History: No Reported History Additional Family Medical History / Comment(s): Mother was healthy and lived to be 86yrs old. Brother(s) Family Medical History: Cancer Father Family Medical History: Cancer Additional Family Medical History / Comment(s): Father had bone cancer. He also had "heart problems." He at the age of 82 yrs. General Exam - General Exam Comments Initial Comments: GENERAL: Patient is well-developed and well-nourished. Patient is nontoxic and well- hydrated and is in no acute distress. ENT: Neck is soft and supple. No significant lymphadenopathy is noted. Oropharynx is clear. Moist mucous membranes. Neck has full range of motion without eliciting any pain. EYES: The sclera were anicteric and conjunctiva were pink and moist. Extraocular movements were intact and pupils were equal round and reactive to light. Eyelids were unremarkable. PULMONARY: Unlabored respirations. Good breath sounds bilaterally. No audible rales rhonchi or wheezing was noted. CARDIOVASCULAR: There is a regular rate and rhythm without any murmurs gallops or rubs. ABDOMEN: Soft and nontender with normal bowel sounds. SKIN: Skin is clear with no lesions or rashes and otherwise unremarkable. NEUROLOGIC: Patient is alert and oriented x3. Cranial nerves II through XII are grossly intact. Motor and sensory are also intact. Normal speech, volume and content. Symmetrical smile. MUSCULOSKELETAL: Normal extremities with adequate strength and full range of motion. LYMPHATICS: No significant lymphadenopathy is noted PSYCHIATRIC: Normal psychiatric evaluation. 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 Chest x-ray shows some pulmonary edema. I spoke with Dr. Barrios he wanted the patient admitted to Dr. biggs. Dr. so wanted antibiotics started so I started the patient antibiotic. - Lab Data Result diagrams: 02/19/22 12:29 02/19/22 12:29 Lab Results 02/19/22 02/19/22 02/19/22 Range/Units 11:41 12:29 12:29 WBC 11.5 H (3.8-10.6) k/uL RBC 4.17 L (4.30-5.90) m/uL Hgb 11.9 L (13.0-17.5) gm/dL Hct 38.0 L (39.0-53.0) % MCV 91.1 (80.0-100.0) fL MCH 28.4 (25.0-35.0) pg MCHC 31.2 (31.0-37.0) g/dL RDW 15.7 H (11.5-15.5) % Plt Count 243 (150-450) k/uL MPV 7.7 Neutrophils % 75 % Lymphocytes % 16 % Monocytes % 5 % Eosinophils % 3 % Basophils % 0 % Neutrophils # 8.6 H (1.3-7.7) k/uL Lymphocytes # 1.9 (1.0-4.8) k/uL Monocytes # 0.6 (0-1.0) k/uL Eosinophils # 0.3 (0-0.7) k/uL Basophils # 0.0 (0-0.2) k/uL Hypochromasia Slight PT 18.9 H (9.0-12.0) sec INR 1.9 H (<1.2) APTT 31.4 H (22.0-30.0) sec Sodium (137-145) mmol/L Potassium (3.5-5.1) mmol/L Chloride (98-107) mmol/L Carbon Dioxide (22-30) mmol/L Anion Gap mmol/L BUN (9-20) mg/dL Creatinine (0.66-1.25) mg/dL Est GFR (CKD-EPI)AfAm (>60 ml/min/1.73 sqM) Est GFR (CKD-EPI)NonAf (>60 ml/min/1.73 sqM) Glucose (74-99) mg/dL POC Glucose (mg/dL) 111 H (75-99) mg/dL POC Glu [employer] Professional ID [place], [place] Plasma Lactic Acid Dario (0.7-2.0) mmol/L Calcium (8.4-10.2) mg/dL Magnesium (1.6-2.3) mg/dL Total Bilirubin (0.2-1.3) mg/dL AST (17-59) U/L ALT (4-49) U/L Alkaline Phosphatase (38-126) U/L Troponin I (0.000-0.034) ng/mL NT-Pro-B Natriuret Pep pg/mL Total Protein (6.3-8.2) g/dL Albumin (3.5-5.0) g/dL Urine Color Urine Appearance (Clear) Urine pH (5.0-8.0) Ur Specific [place] (1.001-1.035) Urine Protein (Negative) Urine Glucose (UA) (Negative) Urine Ketones (Negative) Urine Blood (Negative) Urine Nitrite (Negative) Urine Bilirubin (Negative) Urine Urobilinogen (<2.0) mg/dL Ur Leukocyte Esterase (Negative) 02/19/22 02/19/22 02/19/22 Range/Units 12:29 12:29 12:29 WBC (3.8-10.6) k/uL RBC (4.30-5.90) m/uL Hgb (13.0-17.5) gm/dL Hct (39.0-53.0) % MCV (80.0-100.0) fL MCH (25.0-35.0) pg MCHC (31.0-37.0) g/dL RDW (11.5-15.5) % Plt Count (150-450) k/uL MPV Neutrophils % % Lymphocytes % % Monocytes % % Eosinophils % % Basophils % % Neutrophils # (1.3-7.7) k/uL Lymphocytes # (1.0-4.8) k/uL Monocytes # (0-1.0) k/uL Eosinophils # (0-0.7) k/uL Basophils # (0-0.2) k/uL Hypochromasia PT (9.0-12.0) sec INR (<1.2) APTT (22.0-30.0) sec Sodium 143 (137-145) mmol/L Potassium 3.9 (3.5-5.1) mmol/L Chloride 105 (98-107) mmol/L Carbon Dioxide 26 (22-30) mmol/L Anion Gap 12 mmol/L BUN 79 H (9-20) mg/dL Creatinine 3.61 H (0.66-1.25) mg/dL Est GFR (CKD-EPI)AfAm 17 (>60 ml/min/1.73 sqM) Est GFR (CKD-EPI)NonAf 15 (>60 ml/min/1.73 sqM) Glucose 105 H (74-99) mg/dL POC Glucose (mg/dL) (75-99) mg/dL POC Glu [employer] Professional ID Plasma Lactic Acid Dario 1.6 (0.7-2.0) mmol/L Calcium 8.7 (8.4-10.2) mg/dL Magnesium 2.2 (1.6-2.3) mg/dL Total Bilirubin 0.8 (0.2-1.3) mg/dL AST 19 (17-59) U/L ALT 11 (4-49) U/L Alkaline Phosphatase 104 (38-126) U/L Troponin I 0.035 H* (0.000-0.034) ng/mL NT-Pro-B Natriuret Pep pg/mL Total Protein 6.0 L (6.3-8.2) g/dL Albumin 3.6 (3.5-5.0) g/dL Urine Color Urine Appearance (Clear) Urine pH (5.0-8.0) Ur Specific [place] (1.001-1.035) Urine Protein (Negative) Urine Glucose (UA) (Negative) Urine Ketones (Negative) Urine Blood (Negative) Urine Nitrite (Negative) Urine Bilirubin (Negative) Urine Urobilinogen (<2.0) mg/dL Ur Leukocyte Esterase (Negative) 02/19/22 02/19/22 Range/Units 12:30 13:01 WBC (3.8-10.6) k/uL RBC (4.30-5.90) m/uL Hgb (13.0-17.5) gm/dL Hct (39.0-53.0) % MCV (80.0-100.0) fL MCH (25.0-35.0) pg MCHC (31.0-37.0) g/dL RDW (11.5-15.5) % Plt Count (150-450) k/uL MPV Neutrophils % % Lymphocytes % % Monocytes % % Eosinophils % % Basophils % % Neutrophils # (1.3-7.7) k/uL Lymphocytes # (1.0-4.8) k/uL Monocytes # (0-1.0) k/uL Eosinophils # (0-0.7) k/uL Basophils # (0-0.2) k/uL Hypochromasia PT (9.0-12.0) sec INR (<1.2) APTT (22.0-30.0) sec Sodium (137-145) mmol/L Potassium (3.5-5.1) mmol/L Chloride (98-107) mmol/L Carbon Dioxide (22-30) mmol/L Anion Gap mmol/L BUN (9-20) mg/dL Creatinine (0.66-1.25) mg/dL Est GFR (CKD-EPI)AfAm (>60 ml/min/1.73 sqM) Est GFR (CKD-EPI)NonAf (>60 ml/min/1.73 sqM) Glucose (74-99) mg/dL POC Glucose (mg/dL) (75-99) mg/dL POC Glu [employer] Professional ID Plasma Lactic Acid Dario (0.7-2.0) mmol/L Calcium (8.4-10.2) mg/dL Magnesium (1.6-2.3) mg/dL Total Bilirubin (0.2-1.3) mg/dL AST (17-59) U/L ALT (4-49) U/L Alkaline Phosphatase (38-126) U/L Troponin I (0.000-0.034) ng/mL NT-Pro-B Natriuret Pep 8820 pg/mL Total Protein (6.3-8.2) g/dL Albumin (3.5-5.0) g/dL Urine Color Yellow Urine Appearance Clear (Clear) Urine pH 5.5 (5.0-8.0) Ur Specific [place] 1.012 (1.001-1.035) Urine Protein Negative (Negative) Urine Glucose (UA) Negative (Negative) Urine Ketones Negative (Negative) Urine Blood Negative (Negative) Urine Nitrite Negative (Negative) Urine Bilirubin Negative (Negative) Urine Urobilinogen <2.0 (<2.0) mg/dL Ur Leukocyte Esterase Negative (Negative) Disposition Clinical Impression: Pulmonary edema, Acute on chronic renal failure, Dehydration Disposition: ADMITTED IP TO THIS HOSP Referrals: Silas Barrios MD [Primary Care Provider] - 1-2 days Time of Disposition: 14:25
[2022-02-19 12:44] LABS: Basophils % (A) 0 %; Eosinophils # (A) 0.3 k/uL (0-0.7); Eosinophils % (A) 3 %; HGB 11.9 gm/dL (13.0-17.5); Hypochromasia Slight; Lymphocytes # (A) 1.9 k/uL (1.0-4.8); Lymphocytes % (A) 16 %; MCH 28.4 pg (25.0-35.0); MCHC 31.2 g/dL (31.0-37.0); MCV 91.1 fL (80.0-100.0); Mean Platelet Volume 7.7; Monocytes # (A) 0.6 k/uL (0-1.0); Monocytes % (A) 5 %; Neutrophils # (A) 8.6 k/uL (1.3-7.7); Neutrophils % (A) 75 %; Platelet Count 243 k/uL (150-450); RBC 4.17 m/uL (4.30-5.90); RDW 15.7 % (11.5-15.5); WBC 11.5 k/uL (3.8-10.6)
[2022-02-19 12:55] LABS: Albumin 3.6 g/dL (3.5-5.0); Calcium 8.7 mg/dL (8.4-10.2); Magnesium 2.2 mg/dL (1.6-2.3); Potassium 3.9 mmol/L (3.5-5.1); Total Bilirubin 0.8 mg/dL (0.2-1.3)
[2022-02-19 12:57] LABS: INR 1.9 (<1.2); Partial Thromboplastin Time 31.4 sec (22.0-30.0); Prothrombin Time 18.9 sec (9.0-12.0)
[2022-02-19 13:14] LABS: Appearance,Urine Clear (Clear); Bilirubin,Urine Negative (Negative); Blood,Urine Negative (Negative); Color,Urine Yellow; Glucose,Urine (UA) Negative (Negative); Ketones,Urine Negative (Negative); Leukocyte Esterase,Urine Negative (Negative); Nitrite,Urine Negative (Negative); PH, Urine 5.5 (5.0-8.0); Protein,Urine Negative (Negative); Specific Gravity,Urine 1.012 (1.001-1.035); Urobilinogen,Urine <2.0 mg/dL (<2.0)
--- NOTE | 2022-02-19 13:15 | XR ---
EXAMINATION TYPE: XR chest 2V DATE OF EXAM: 02/19/2022 COMPARISON: 01/30/2022 HISTORY: 86-year-old male with weakness and low blood pressure TECHNIQUE: AP and lateral views FINDINGS: Left anterior chest wall AICD generator with right atrial, right ventricular, and coronary sinus lead s. Mild hyperinflation. Diffuse interstitial density. Some left basilar opacity. Right anterior chest wall injection port. Catheter seems to be disconnected. One end of the catheter fragment is seen at the level of the right clavicle. IMPRESSION: 1. Correlate for CHF with pulmonary vascular congestion. Possible small left effusion with adjacent a telectasis and/or consolidation. 2. Right anterior chest wall injection port. The catheter is disconnected. One end of the catheter is seen at the level of the right clavicle. Unchanged from recent prior.
[2022-02-19 19:58] LABS: Glucose,Whole Blood 132 mg/dL (75-99)
[2022-02-19] MEDS: FUROSEMIDE 10 MG/ML 10 ML VIAL IV SCH (21:55)
[2022-02-20] MEDS: LEVOTHYROXINE 100 MCG TAB PO SCH (05:55)
[2022-02-20] MEDS: ASPIRIN 81 MG PO SCH (07:36)
[2022-02-20] MEDS: AMIODARONE 100 MG TAB PO SCH (07:36)
[2022-02-20] MEDS: FUROSEMIDE 10 MG/ML 10 ML VIAL IV SCH (08:44)
[2022-02-20 09:13] LABS: African American GFR (CKD) 18.2 (60.0-200.0); Anion Gap 12.1 mmol/L (10.00-18.00); BUN/Creat Ratio 20.32 Ratio (12.00-20.00); Blood Urea Nitrogen 68.9 mg/dL (9.0-27.0); Calcium 8.1 mg/dL (8.7-10.3); Carbon Dioxide 23.2 mmol/L (20.0-27.5); Non-African American GFR(CKD) 15.7 (60.0-200.0); Potassium 3.9 mmol/L (3.5-5.5)
--- NOTE | 2022-02-20 09:47 | P.NPCON ---
History of Present Illness - Reason for Consult acute renal failure - History of Present Illness Patient is an 86-year-old male with history of hypertension, hypothyroidism, chronic kidney disease NKF stage IV with baseline creatinine about 2.6 mg/dL patient has underlying history of CHF with ejection fraction of 20%. He was recently discharged from the hospital after an admission for exacerbation of CHF last month. This admission patient is admitted to the hospital with complaints of increased weakness and low blood pressure. His systolic blood pressure was in the 70s when he came in. Patient denies any chest pains or shortness of breath. No nausea vomiting abdominal pain or diarrhea. No significant changes in urine output Review of Systems As per HPI other systems negative Past Medical History Past Medical History: Atrial Fibrillation, Coronary Artery Disease (CAD), Cancer, Heart Failure, COPD, Diabetes Mellitus, Hypertension, Liver Disease, Myocardial Infarction ([place]), Thyroid Disorder Additional Past Medical History / Comment(s): See Dr Carrera's H&P,mantle cell lymphoma treated 9-10 years ago with chemo, hx pleural effusion L side with thoracentesis x2, sepsis, urinary retention, hepatitis in 1950 type unknown, diff swallowing, decreased kidney function Last Myocardial Infarction Date:: 1998 History of Any Multi-Drug Resistant Organisms: None Reported Past Surgical History: AICD, Coronary Bypass/CABG, Heart Catheterization, Pacemaker Additional Past Surgical History / Comment(s): PTCA, 1998 4 vessel CABG, cardioversion, L thoracentesis x2, colonoscopy, bone marrow bx, bilateral c ataract removal, mediport. Past Anesthesia/Blood Transfusion Reactions: No Reported Reaction Type of Cardiac Device: Permanent Pacemaker, AICD Device Placement Date:: 2004 implant/2017 gen change Past Psychological History: No Psychological Hx Reported Additional Psychological History / Comment(s): Lives in the family home with his . 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 Denies any recent travels. No recent animal exposures. Uses cane to ambulate. Pt drives. Smoking Status: Former smoker Past Alcohol Use History: None Reported Additional Past Alcohol Use History / Comment(s): Pt smoked from about 1955 until 1994. 1 ppd Past Drug Use History: None Reported - Past Family History Mother Family Medical History: No Reported History Additional Family Medical History / Comment(s): Mother was healthy and lived to be 86yrs old. Brother(s) Family Medical History: Cancer Father Family Medical History: Cancer Additional Family Medical History / Comment(s): Father had bone cancer. He also had "heart problems." He at the age of 82 yrs. Medications and Allergies Home Medications Medication Instructions Recorded Confirmed Type Aspirin EC [Ecotrin Low Dose] 81 mg PO DAILY 01/31/15 02/19/22 History Levothyroxine Sodium [Synthroid] 100 mcg PO DAILY 06/22/17 02/19/22 History Amiodarone [Cordarone] 100 mg PO DAILY #90 tab 05/29/18 02/19/22 Rx Allopurinol [Zyloprim] 300 mg PO HS 01/28/22 02/19/22 History Cranberry Fruit Extract [Cranberry] 200 mg PO DAILY 01/28/22 02/19/22 History Metoprolol Tartrate [Lopressor] 50 mg PO DAILY 01/28/22 02/19/22 History Sacubitril/Valsartan [Entresto 24 1 tab PO BID 01/28/22 02/19/22 History mg-26 mg Tablet] Warfarin [Coumadin] 1.25 mg PO SUTUWEFR 01/28/22 02/19/22 History Warfarin [Coumadin] 2.5 mg PO MOTHSA 01/28/22 02/19/22 History calcitrioL [Calcitriol] 0.25 mcg PO COUGHLIN 01/28/22 02/19/22 History Furosemide [Lasix] 40 mg PO DAILY@1400 90 Days #90 tab 01/31/22 02/19/22 Rx Furosemide [Lasix] 80 mg PO DAILY 02/19/22 02/19/22 History Allergies Allergy/AdvReac Type Severity Reaction Status Date / Time No Known Allergies Allergy Verified 02/19/22 12:59 Physical Exam Vitals: Vital Signs Temp Pulse Pulse Pulse Resp BP BP 02/20/22 08:00 97.8 F 02/20/22 07:41 104 H 02/20/22 07:38 104 H 18 02/20/22 02:01 97.8 F 81 16 103/54 02/19/22 20:00 98.2 F 58 L 16 100/53 02/19/22 17:35 98.8 F 70 16 02/19/22 16:23 70 16 93/57 02/19/22 12:02 98.8 F 78 16 02/19/22 11:45 87 16 109/70 05/14/22 11:42 85 02/19/22 11:21 97.7 F 92 18 94/54 BP BP BP Pulse Ox 02/20/22 08:00 02/20/22 07:41 02/20/22 07:38 119/64 93 L 02/20/22 02:01 94 L 02/19/22 20:00 96 02/19/22 17:35 101/57 97 02/19/22 16:23 97 02/19/22 12:02 106/55 90/51 107/54 95 02/19/22 11:45 99 02/19/22 11:42 02/19/22 11:21 98 Intake and Output 02/19/22 02/20/22 02/20/22 22:59 06:59 14:59 Output Total 750 Balance -750 Output: Urine 750 Other: Weight 76.204 kg Awake, comfortable not in any acute distress Alert oriented 3 Examination of the heart S1 and S2 Examination lungs bilateral breath sounds are heard Abdomen is soft nontender Examination lower extremity shows no evidence of edema. Patient has a lesion on his left arm lower leg which is currently dressed. 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 Acute kidney injury associated with hypotension and hypoperfusion. Currently nonoliguric. Rule out urine retention 2. 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 UA has been benign. No evidence of obstruction noted on previous ultrasound Baseline creatinine about 2.4-2.6 mg/dL 3. Systolic CHF with recent admission for exacerbation last month. Ejection fraction 20% 4. Hypotension, hypovolemic versus secondary to him severe cardiomyopathy. No evidence of infection. Decrease dose of diuretics 5. 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 Hyperuricemia maintained on allopurinol Plan: Decrease Lasix to 40 mg IV every 12 hours as chest x-ray continues to show bilateral pulmonary vascular congestion although clinically patient does not appear to be significantly volume overloaded. Check bladder scan and rule out urine retention Avoid any nephrotoxic agents Repeat labs in a.m. Accurate I's and O's
--- NOTE | 2022-02-20 15:41 | P.HPIM ---
History of Present Illness H&P Date: 02/19/22 Chief Complaint: Low blood pressure 86-year-old male, history of atrial fibrillation, CAD, CHF, COPD, diabetes mellitus, hypertension, hypothyroidism and liver disease who presents emergency Department with the complaint of feeling extremely weak and having low blood pressure. According to the his blood pressures been running a little bit low last couple of days but this morning was excessively low. One of the patient's blood pressure 72/69 which didn't seem like a legitimate blood pressure. Patient states he felt very weak when he got up it was no focal weakness was generalized. Patient denies any recent fever or chills. Patient denies any chest pain palpitations difficulty breathing or shortness of breath. Patient denies any dysuria hematuria urinary frequency. Patient denies any recent fever or chills. Patient denies any injury or trauma. Patient states just overall he feels extremely weak. Patient states he has not taken any of his medications today. Workup in ED reveals pulmonary edema on chest x-ray EKG shows paced rhythm at 83 bpm QRS is 181 Q-T intervals 436 QTC is 476. Labs completed revealed the CBC of 11.5, hemoglobin 11.9, platelet count of 243, BUN of 79 with creatinine of 3.61; troponin is elevated at 0.035; BNP of 8820 Review of Systems REVIEW OF SYSTEMS: CONSTITUTIONAL: No fever, no malaise, no fatigue. HEENT: No recent visual problems or hearing problems. Denied any sore throat. CARDIOVASCULAR: No chest pain, orthopnea, PND, no palpitations, no syncope. PULMONARY: No shortness of breath, no cough, no hemoptysis. GASTROINTESTINAL: No diarrhea, no nausea, no vomiting, no abdominal pain. NEUROLOGICAL: No headaches, no weakness, no numbness. HEMATOLOGICAL: Denies any bleeding or petechiae. GENITOURINARY: Denies any burning micturition, frequency, or urgency. MUSCULOSKELETAL/RHEUMATOLOGICAL: Denies any joint pain, swelling, or any muscle pain. ENDOCRINE: Denies any polyuria or polydipsia. The rest of the 14-point review of systems is negative. 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 Past Anesthesia/Blood Transfusion Reactions: No Reported Reaction Type of Cardiac Device: Permanent Pacemaker, AICD Device Placement Date:: 2004 implant/2017 gen change Past Psychological History: No Psychological Hx Reported Smoking Status: Former smoker Past Alcohol Use History: None Reported Past Drug Use History: None Reported - Past Family History Mother Family Medical History: No Reported History Additional Family Medical History / Comment(s): Mother was healthy and lived to be 86yrs old. Brother(s) Family Medical History: Cancer Father Family Medical History: Cancer Additional Family Medical History / Comment(s): Father had bone cancer. He also had "heart problems." He at the age of 82 yrs. Medications and Allergies Home Medications Medication Instructions Recorded Confirmed Type Aspirin EC [Ecotrin Low Dose] 81 mg PO DAILY 01/31/15 02/19/22 History Levothyroxine Sodium [Synthroid] 100 mcg PO DAILY 06/22/17 02/19/22 History Amiodarone [Cordarone] 100 mg PO DAILY #90 tab 05/29/18 02/19/22 Rx Allopurinol [Zyloprim] 300 mg PO HS 01/28/22 02/19/22 History Cranberry Fruit Extract [Cranberry] 200 mg PO DAILY 01/28/22 02/19/22 History Metoprolol Tartrate [Lopressor] 50 mg PO DAILY 01/28/22 02/19/22 History Sacubitril/Valsartan [Entresto 24 1 tab PO BID 01/28/22 02/19/22 History mg-26 mg Tablet] Warfarin [Coumadin] 1.25 mg PO SUTUWEFR 01/28/22 02/19/22 History Warfarin [Coumadin] 2.5 mg PO MOTHSA 01/28/22 02/19/22 History calcitrioL [Calcitriol] 0.25 mcg PO COUGHLIN 01/28/22 02/19/22 History Furosemide [Lasix] 40 mg PO DAILY@1400 90 Days #90 tab 01/31/22 02/19/22 Rx Furosemide [Lasix] 80 mg PO DAILY 02/19/22 02/19/22 History Allergies Allergy/AdvReac Type Severity Reaction Status Date / Time No Known Allergies Allergy Verified 02/19/22 12:59 Physical Exam Vitals: Vital Signs Temp Pulse Pulse Resp BP BP BP 02/19/22 12:02 98.8 F 78 16 106/55 90/51 02/19/22 11:45 87 16 109/70 02/19/22 11:42 85 02/19/22 11:21 97.7 F 92 18 94/54 BP Pulse Ox 02/19/22 12:02 107/54 95 02/19/22 11:45 99 02/19/22 11:42 02/19/22 11:21 98 Intake and Output 02/19/22 02/19/22 02/19/22 06:59 14:59 22:59 Other: Weight 76.204 kg - Constitutional General appearance: Present: average body habitus, cooperative, no acute distress - EENT Eyes: Present: anicteric sclerae, EOMI, PERRLA, normal appearance ENT: Present: hearing grossly normal, normal oropharynx Ears: bilateral: normal - Neck Neck: Present: normal ROM. Absent: lymphadenopathy, rigidity, thyromegaly Carotids: negative: bruit present Thyroid: bilateral: normal size, negative: enlarged, nodule - Respiratory Respiratory: bilateral: CTA, negative: rales, rhonchi, wheezing - Cardiovascular Rhythm: regular Heart sounds: normal: S1, S2 Abnormal Heart Sounds: Absent: systolic murmur, diastolic murmur - Gastrointestinal General gastrointestinal: Present: normal bowel sounds, soft. Absent: di stended, organomegaly, tenderness - Genitourinary Genitourinary Comment(s): deferred - Integumentary Integumentary: Present: normal turgor. Absent: jaundiced, rash, ulcer - Neurologic Neurologic: Present: CNII-XII intact. Absent: focal deficits - Musculoskeletal Musculoskeletal: Present: gait normal, strength equal bilaterally - Psychiatric Psychiatric: Present: A&O x's 3, appropriate affect, intact judgment & insight Results CBC & Chem 7: 02/19/22 12:29 02/19/22 12:29 Labs: Abnormal Lab Results - Last 24 Hours (Table) 02/19/22 02/19/22 02/19/22 Range/Units 11:41 12:29 12:29 WBC 11.5 H (3.8-10.6) k/uL RBC 4.17 L (4.30-5.90) m/uL Hgb 11.9 L (13.0-17.5) gm/dL Hct 38.0 L (39.0-53.0) % RDW 15.7 H (11.5-15.5) % Neutrophils # 8.6 H (1.3-7.7) k/uL PT 18.9 H (9.0-12.0) sec INR 1.9 H (<1.2) APTT 31.4 H (22.0-30.0) sec BUN (9-20) mg/dL Creatinine (0.66-1.25) mg/dL Glucose (74-99) mg/dL POC Glucose (mg/dL) 111 H (75-99) mg/dL Troponin I (0.000-0.034) ng/mL Total Protein (6.3-8.2) g/dL 02/19/22 02/19/22 Range/Units 12:29 12:29 WBC (3.8-10.6) k/uL RBC (4.30-5.90) m/uL Hgb (13.0-17.5) gm/dL Hct (39.0-53.0) % RDW (11.5-15.5) % Neutrophils # (1.3-7.7) k/uL PT (9.0-12.0) sec INR (<1.2) APTT (22.0-30.0) sec BUN 79 H (9-20) mg/dL Creatinine 3.61 H (0.66-1.25) mg/dL Glucose 105 H (74-99) mg/dL POC Glucose (mg/dL) (75-99) mg/dL Troponin I 0.035 H* (0.000-0.034) ng/mL Total Protein 6.0 L (6.3-8.2) g/dL Assessment and Plan Assessment: 1. Acute pulmonary edema; we will start with gentle diuresis with Lasix 40 mg IV every 12 hours; we will monitor strict GUILLERMINA's and daily weights; low-salt and fluid restricted diet; consult cardiology for further recommendations 2. Elevated troponin; rule out acute coronary syndrome; monitor EKG and trend troponin; recommend 2-D echo; consult cardiology for further recommendations 3. Hypotension; cardiac courses dehydration; hold off on antihypertensive therapy; rate and blood pressure closely; further treatment as indicated 4. 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 Dehydration; we will hold off on IV fluid hydration due to pulmonary edema; nephrology has been consulted 6. Atrial fibrillation; rate controlled on amiodarone 100 mg daily; patient also takes metoprolol with further placed on hold until blood pressure improves; continue anticoagulation with Coumadin 7. CAD/CHF; patient takes aspirin, metoprolol, and Entresto and Lasix at home 8. COPD; not in exacerbation 9. Diabetes mellitus; not on any diabetic regimen; blood glucose at 105 upon admission; we will monitor Accu-Cheks as needed 10. Hypothyroidism; levothyroxin 100 MCG daily DVT prophylaxis; SCDs/Coumadin CODE STATUS; full code
--- NOTE | 2022-02-20 16:33 | P.PN ---
Subjective Progress Note Date: 02/20/22 Principal diagnosis: Acute kidney injury associated with hypotension and hypoperfusion 86-year-old male, history of atrial fibrillation, CAD, CHF, COPD, diabetes mellitus, hypertension, hypothyroidism and liver disease who presents emergency Department with the complaint of feeling extremely weak and having low blood pressure. According to the his blood pressures been running a little bit low last couple of days but this morning was excessively low. One of the patient's blood pressure 72/69 which didn't seem like a legitimate blood pressure. Patient states he felt very weak when he got up it was no focal weakness was generalized. Patient denies any recent fever or chills. Patient denies any chest pain palpitations difficulty breathing or shortness of breath. Patient denies any dysuria hematuria urinary frequency. Patient denies any recent fever or chills. Patient denies any injury or trauma. Patient states just overall he feels extremely weak. Patient states he has not taken any of his medications today. Workup in ED reveals pulmonary edema on chest x-ray EKG shows paced rhythm at 83 bpm QRS is 181 Q-T intervals 436 QTC is 476. Labs completed revealed the CBC of 11.5, hemoglobin 11.9, platelet count of 243, BUN of 79 with creatinine of 3.61; troponin is elevated at 0.035; BNP of 8820 patient has been evaluated by urology and is recommended to decrease Lasix to 40 mg IV every 12 hours as clinically patient does not appear to be significantly volume overloaded. Check bladder scan and rule out urine retention; Avoid any nephrotoxic agents; Repeat labs in a.m. Accurate I's and O's Objective - Vital Signs Vital signs: Vital Signs Temp 97.4 F L 02/20/22 14:00 Pulse 71 02/20/22 14:00 Resp 18 02/20/22 14:00 BP 129/60 02/20/22 14:00 Pulse Ox 97 02/20/22 14:00 Intake & Output 02/19/22 02/20/22 02/20/22 18:59 06:59 18:59 Output Total 750 Balance -750 Weight 76.204 kg Output: Urine 750 - Exam Awake, comfortable not in any acute distress Alert oriented 3 Examination of the heart S1 and S2 Examination lungs bilateral breath sounds are heard Abdomen is soft nontender Examination lower extremity shows no evidence of edema. Patient has a lesion on his left arm lower leg which is currently dressed. TANK CARPENTER exam grossly intact - Labs CBC & Chem 7: 02/19/22 12:29 02/20/22 03:56 Labs: Abnormal Lab Results - Last 24 Hours (Table) 02/19/22 02/20/22 Range/Units 19:56 03:56 BUN 68.9 H (9.0-27.0) mg/dL Creatinine 3.4 H (0.6-1.5) mg/dL Est GFR (CKD-EPI)AfAm 18.2 L (60.0-200.0) Est GFR (CKD-EPI)NonAf 15.7 L (60.0-200.0) BUN/Creatinine Ratio 20.32 H (12.00-20.00) Ratio POC Glucose (mg/dL) 132 H (75-99) mg/dL Calcium 8.1 L (8.7-10.3) mg/dL Assessment and Plan Assessment: 1. Acute pulmonary edema; we will start with gentle diuresis with Lasix 40 mg IV every 12 hours; we will monitor strict GUILLERMINA's and daily weights; low-salt and fluid restricted diet; consult cardiology for further recommendations 2. Elevated troponin; rule out acute coronary syndrome; monitor EKG and trend troponin; recommend 2-D echo; consult cardiology for further recommendations 3. Hypotension; cardiac courses dehydration; hold off on antihypertensive therapy; rate and blood pressure closely; further treatment as indicated 4. 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 Dehydration; we will hold off on IV fluid hydration due to pulmonary edema; nephrology has been consulted 6. Atrial fibrillation; rate controlled on amiodarone 100 mg daily; patient also takes metoprolol with further placed on hold until blood pressure improves; continue anticoagulation with Coumadin 7. CAD/CHF; patient takes aspirin, metoprolol, and Entresto and Lasix at home 8. COPD; not in exacerbation 9. Diabetes mellitus; not on any diabetic regimen; blood glucose at 105 upon admission; we will monitor Accu-Cheks as needed 10. Hypothyroidism; levothyroxin 100 MCG daily DVT prophylaxis; SCDs/Coumadin CODE STATUS; full code
[2022-02-20] MEDS: FUROSEMIDE 10 MG/ML 4 ML VIAL IV SCH (21:28)
[2022-02-21] MEDS: LEVOTHYROXINE 100 MCG TAB PO SCH (05:47)
[2022-02-21 09:45] LABS: African American GFR (CKD) 20.3 (60.0-200.0); Anion Gap 11.9 mmol/L (10.00-18.00); BUN/Creat Ratio 19.84 Ratio (12.00-20.00); Blood Urea Nitrogen 61.5 mg/dL (9.0-27.0); Calcium 8.4 mg/dL (8.7-10.3); Carbon Dioxide 22.1 mmol/L (20.0-27.5); Non-African American GFR(CKD) 17.5 (60.0-200.0); Potassium 4.3 mmol/L (3.5-5.5)
[2022-02-21] MEDS: ASPIRIN 81 MG PO SCH (10:23)
[2022-02-21] MEDS: AMIODARONE 100 MG TAB PO SCH (10:23)
[2022-02-21] MEDS: FUROSEMIDE 10 MG/ML 4 ML VIAL IV SCH ×2 (10:29→20:30)
--- NOTE | 2022-02-21 12:13 | XR ---
EXAMINATION TYPE: XR chest 1V DATE OF EXAM: 02/21/2022 COMPARISON: 02/19/2022 HISTORY: Shortness of breath TECHNIQUE: Single frontal view of the chest is obtained. FINDINGS: Left anterior chest wall AICD generator with right atrial, right ventricular, and coronary sinus leads. Mild hyperinflation. Diffuse interstitial density. Some left basilar opacity. Right ant erior chest wall injection port. Catheter seems to be disconnected. One end of the catheter fragment is seen at the level of the right clavicle. IMPRESSION: 1. Diffuse interstitial pattern persists. Been the basis of venous congestion or interstitial pneumon ia. Small left pleural effusion and basilar infiltrate noted. 2. There appears to be a discontinuation between the Mediport catheter and the Mediport. Fractured ca theter with free floating foreign body within the SVC in the differential diagnosis. Correlate clinic ally.
--- NOTE | 2022-02-21 13:25 | P.PN ---
Subjective Pt is seen for f/u for CARRIE, slowly improving. Admitted with hypotension. Underlying catdiomyopathy , EF < 20% Currently being diuresed. Good UOP No complaints today. Underlying CKD stage 4 with baseline cr 2.4-2.6 mg/dL Objective - Vital Signs Vital signs: Vital Signs Temp 97.6 F 02/21/22 07:42 Pulse 78 02/21/22 07:42 Resp 19 02/21/22 07:42 BP 104/53 02/21/22 07:42 Pulse Ox 91 L 02/21/22 07:42 Intake & Output 02/20/22 02/21/22 02/21/22 18:59 06:59 18:59 Intake Total 1320 480 Output Total 300 700 Balance 1020 -220 Intake: Oral 1320 480 Output: Urine 300 700 Other: Voiding Method Urinal # Voids 1 - Exam Awake, comfortable, alert oriented x3. Lungs are clar CVS S1 and S2 Abdomen is soft Extremities show no edema. INSTRUMENT REPAIR SPECIALIST exam is intact - Labs CBC & Chem 7: 02/19/22 12:29 02/21/22 03:47 Labs: Abnormal Lab Results - Last 24 Hours (Table) 02/21/22 Range/Units 03:47 BUN 61.5 H (9.0-27.0) mg/dL Creatinine 3.1 H (0.6-1.5) mg/dL Est GFR (CKD-EPI)AfAm 20.3 L (60.0-200.0) Est GFR (CKD-EPI)NonAf 17.5 L (60.0-200.0) Calcium 8.4 L (8.7-10.3) mg/dL Assessment and Plan Assessment: 1. Acute kidney injury associated with hypotension and hypoperfusion. Currently nonoliguric. Improving. 2. 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 UA has been benign. No evidence of obstruction noted on previous ultrasound Baseline creatinine about 2.4-2.6 mg/dL 3. Systolic CHF with recent admission for exacerbation last month. Ejection fraction 20% 4. Hypotension, hypovolemic versus secondary to him severe cardiomyopathy. No evidence of infection. Decrease dose of diuretics 5. 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 Hyperuricemia maintained on allopurinol Plan: Continue Lasix to 40 mg IV every 12 hours as chest x-ray continues to show bilateral pulmonary vascular congestion although clinically patient does not appear to be significantly volume overloaded. Can switch to PO diuretics in am Avoid any nephrotoxic agents Repeat labs in a.m.
--- NOTE | 2022-02-21 15:18 | P.PN ---
Subjective Progress Note Date: 02/21/22 Acute kidney injury associated with hypotension and hypoperfusion 86-year-old male, history of atrial fibrillation, CAD, CHF, COPD, diabetes mellitus, hypertension, hypothyroidism and liver disease who presents emergency Department with the complaint of feeling extremely weak and having low blood pressure. According to the his blood pressures been running a little bit l ow last couple of days but this morning was excessively low. One of the patient's blood pressure 72/69 which didn't seem like a legitimate blood pressure. Patient states he felt very weak when he got up it was no focal weakness was generalized. Patient denies any recent fever or chills. Patient denies any chest pain palpitations difficulty breathing or shortness of breath. Patient denies any dysuria hematuria urinary frequency. Patient denies any recent fever or chills. Patient denies any injury or trauma. Patient states just overall he feels extremely weak. Patient states he has not taken any of his medications today. Workup in ED reveals pulmonary edema on chest x-ray EKG shows paced rhythm at 83 bpm QRS is 181 Q-T intervals 436 QTC is 476. Labs completed revealed the CBC of 11.5, hemoglobin 11.9, platelet count of 243, BUN of 79 with creatinine of 3.61; troponin is elevated at 0.035; BNP of 8820 patient has been evaluated by urology and is recommended to decrease Lasix to 40 mg IV every 12 hours as clinically patient does not appear to be significantly volume overloaded. Check bladder scan and rule out urine retention; Avoid any nephrotoxic agents; Repeat labs in a.m. Accurate I's and O's 02/21/2022 Patient is seen and evaluated in follow-up this morning currently sitting up in the chair on room air and denies any worsening shortness of breath. Patient's blood pressures continue to be low at 104/53 and maintained on IV Lasix with nephrology following closely. Patient follows with cardiology in the outpatient setting and will consult cardiology for CHF. Patient also has chronic kidney disease and follows with nephrology outpatient and current creatinine is 3.1 today the sodium of 140 and potassium is 4.3. Chest x-ray ordered and pending at this time. Review of systems: Constitutional: No reports of fatigue, fever, or chills Cardiovascular: No reports of chest pain or palpitations Respiratory: No reports of worsening shortness of breath or cough GI: No reports of nausea, vomiting, or diarrhea : No reports of dysuria or retention, patient reports to urinating frequently secondary to the IV Lasix Neurovascular: No reports of weakness or numbness All medications have been reviewed Active Medications Amiodarone HCl (Amiodarone 100 Mg Tab) 100 mg PO DAILY [facility] Last Admin: 02/20/22 07:36 Dose: 100 mg Documented by: Aspirin (Aspirin 81 Mg) 81 mg PO DAILY [facility] Last Admin: 02/20/22 07:36 Dose: 81 mg Documented by: Furosemide (Furosemide 10 Mg/Ml 4 Ml Vial) 40 mg IV Q12HR [facility] Last Admin: 02/20/22 21:28 Dose: 40 mg Documented by: Levothyroxine Sodium (Levothyroxine 100 Mcg Tab) 100 mcg PO 0630 [facility] Last Admin: 02/21/22 05:47 Dose: 100 mcg Documented by: Physical exam: Gen: This is a 86-year-old male awake, alert and oriented 3, well-developed, well-nourished. HEENT: Head is atraumatic, normocephalic. Pupils equal, round. Sclerae is anicteric. NECK: Supple. No JVD. No lymphadenopathy. No thyromegaly. LUNGS: Diminished breath sounds laterally with no wheezes or rhonchi. No intercostal retractions. HEART: Regular rate and rhythm. No murmur. ABDOMEN: Soft. Bowel sounds are present. No masses. No tenderness. EXTREMITIES: No pedal edema. No calf tenderness. NEUROLOGICAL: Patient is awake, alert and oriented x3. Cranial nerves 2 through 12 are grossly intact. Assessment: Acute pulmonary edema Elevated troponin, rule out acute coronary syndrome Hypotension currently with a history of hypertension Dehydration Acute on chronic kidney disease stage IV Atrial fibrillation, currently rate controlled Coumadin therapy Coronary artery disease Chronic congestive heart failure with systolic dysfunction and most recent EF less than 20%, on Entresto COPD, not in acute exacerbation Diabetes mellitus, diet controlled Hypothyroidism GI prophylaxis DVT prophylaxis Full code Plan: Recommend to continue with IV Lasix twice daily and possibly transition to oral tomorrow Chest x-ray today shows diffuse interstitial pattern persists on the basis of venous congestion or interstitial pneumonia with a small left pleural effusion and basilar infiltrate noted Nephrology following Cardiology consulted and pending at this time Encouraged heart healthy renal diet Continue to monitor vital signs and blood pressure closely Due to multiple complex medical issues, prognosis is guarded Possible discharge in 24-48 hours The impression and plan of care has been dictated by Liyah Rizvi, Nurse Practitioner as directed. Dr. Merissa MD I have performed a history and examination and MDM of this patient, discussed the same with the dictator, and agree with the dictator's assessment and plan as written ,documented as a scribe. Based on total visit time, I have performed more than 50% of the visit. Objective - Vital Signs Vital signs: Vital Signs Temp 97.6 F 02/21/22 07:42 Pulse 78 02/21/22 07:42 Resp 19 02/21/22 07:42 BP 104/53 02/21/22 07:42 Pulse Ox 91 L 02/21/22 07:42 Intake & Output 02/20/22 02/21/22 02/21/22 18:59 06:59 18:59 Intake Total 1320 480 Output Total 300 700 Balance 1020 -220 Intake: Oral 1320 480 Output: Urine 300 700 Other: # Voids 1 - Labs CBC & Chem 7: 02/19/22 12:29 02/21/22 03:47
[2022-02-21] MEDS ORDERED: WARFARIN 2 MG TAB PO ONE (23:00)
[2022-02-22] MEDS: LEVOTHYROXINE 100 MCG TAB PO SCH (05:47)
[2022-02-22 06:18] LABS: African American GFR (CKD) 23 (>60 ml/min/1.73 sqM); Anion Gap 10 mmol/L; Blood Urea Nitrogen 63 mg/dL (9-20); Calcium 8.2 mg/dL (8.4-10.2); Carbon Dioxide 24 mmol/L (22-30); Chloride 104 mmol/L (98-107); Glucose 100 mg/dL (74-99); Non-African American GFR(CKD) 20 (>60 ml/min/1.73 sqM); Potassium 4.4 mmol/L (3.5-5.1); Sodium 138 mmol/L (137-145)
[2022-02-22] MEDS: AMIODARONE 100 MG TAB PO SCH (08:17)
[2022-02-22] MEDS: FUROSEMIDE 10 MG/ML 4 ML VIAL IV SCH (08:17)
[2022-02-22] MEDS: ASPIRIN 81 MG PO SCH (08:17)
[2022-02-22] MEDS ORDERED: FUROSEMIDE 80 MG TAB PO SCH (09:00)
[2022-02-22 09:07] LABS: INR 1.44 (0.90-1.11); Prothrombin Time 15.6 sec (9.9-11.9)
[2022-02-22 09:13] LABS: Basophils # (A) 0.04 X 10*3/uL (0.00-0.10); Basophils % (A) 0.5 %; Eosinophils # (A) 0.63 X 10*3/uL (0.04-0.35); Eosinophils % (A) 7.2 %; HCT 36.8 % (39.6-50.0); Immature Grans, Automated 0.2 %; Lymphocytes # (A) 2.45 X 10*3/uL (0.90-5.00); Lymphocytes % (A) 27.9 %; MCH 27.3 pg (27.0-32.0); MCHC 29.9 g/dL (32.0-37.0); MCV 91.3 fL (80.0-97.0); Mean Platelet Volume 10.7 fL (9.5-12.2); Monocytes # (A) 0.65 X 10*3/uL (0.20-1.00); Monocytes % (A) 7.4 %; NRBC Per 100 WBC 0 /100 WBCS (0.0-0.0); Neutrophils % (A) 56.8 %; Platelet Count 248 X 10*3/uL (140-440); RBC 4.03 X 10*6/uL (4.40-5.60); RDW 15.7 % (11.5-14.5); WBC 8.79 X 10*3/uL (4.50-10.00)
--- NOTE | 2022-02-22 09:36 | P.CRDCN ---
History of Present Illness History of present illness: HISTORY OF PRESENTING ILLNESS This is a pleasant 86-year-old female past medical history significant for ischemic cardiomyopathy with a known EF of 20%, status post bi-V ICD, coronary artery disease status post CABG in 1998 (ZARCO-LAD, VG-D1, VG-OM1, VG-RCA), chronic heart failure with reduced ejection fraction, chronic kidney disease, hypertension, paroxysmal atrial fibrillation on Coumadin. He follows in the office with Dr. Carrera. We have been asked to see in consultation for congest ryder heart failure. Patient presents to the hospital on 02/19/22 with complaints of generalized weakness and hypotension. He states he noted at home his blood pressure being low with 70s/60s. He states he had generalized weakness. Denies chest pain, shortness of breath, lightheadedness, dizziness, palpitations, orthopnea or PND. Patient's BP remains 90s/50s. DIAGNOSTICS EKG reveals V paced HR 83 Most recent echocardiogram 01/28/2022 revealed an EF of less than 20%, grade 2 diastolic dysfunction, large hypokinetic areas of anterior, anterolateral, inferior lateral and inferior m[place]o. Mild to moderate aortic regurgitation, moderate to severe mitral regurgitation, moderate tricuspid regurgitation, PASP 45mmHg. Telemetry tracings indicate= patient not on telemetry to review. Chest xray small left pleural effusion, basilar infiltrate noted. Discontinuation which in the MediPort catheter Mediport. Fractured catheter with free-floating foreign body within the SVC in the differential diagnosis. Laboratory reviewed, WBC 1.5, hemoglobin 11.9, platelets 243, sodium 140, potassium 4.3, P1 61, serum creatinine 3.1, troponin 0.035, proBNP 8820, UA negative. Current home cardiac medications include Coumadin, and Entresto 24 mg/26 mg twice a day, metoprolol titrate 50 mg daily, Lasix 40 mg nightly and 80 mg daily, aspirin 81 mg daily, amiodarone 200 mg daily REVIEW OF SYSTEMS At the time of my exam: CONSTITUTIONAL: Denies fever or chills. CARDIOVASCULAR: Denies chest pain, shortness of breath, orthopnea, PND or palpitations. RESPIRATORY: Denies cough. GASTROINTESTINAL: Denies abdominal pain, diarrhea, constipation, nausea or vomiting. MUSCULOSKELETAL: Denies myalgias. NEUROLOGIC: Denies numbness, tingling, headache or weakness. ENDOCRINE: + fatigue, Denies weight change, polydipsia or polyurina. GENITOURINARY: Denies burning, hematuria or urgency with micturation. HEMATOLOGIC: Denies history of anemia or bleeding. PHYSICAL EXAMINATION Blood pressure 99/55 HR 89 afebrile, 96% on room air. CONSTITUTIONAL: No apparent distress. HEENT: Head is normocephalic. Pupils are equal, round. Sclerae anicteric. Mucous membranes of the mouth are moist. No JVD. No carotid bruit. CHEST EXAMINATION: Lungs are clear to auscultation. No chest wall tenderness is noted on palpation or with deep breathing. HEART EXAMINATION: Regular rate and rhythm. S1, S2 heard. No murmurs, gallops or rub. ABDOMEN: Soft, nontender. Positive bowel sounds. EXTREMITIES: 2+ peripheral pulses, 2+ bilateal extremity edema and no calf tenderness. NEUROLOGIC EXAMINATION: Patient is awake, alert and oriented x3. ASSESSMENT Symptoms of hypotension at home and generalized fatigue/weakness Chronic heart failure with reduced ejection fraction <20% Ischemic cardiomyopathy with a known EF of 20% Status post bi-V ICD Coronary artery disease status post CABG in 1998 (ZARCO-LAD, VG-D1, VG-OM1, VG- RCA) Acute on Chronic kidney disease stage 4 Hypertension Paroxysmal atrial fibrillation on Coumadin PLAN Hold Entresto at this time secondary to hypotension Transition to PO Lasix Continue beta lelo and amiodarone Continue coumadin Further recommendations based on clinical course. Nurse practitioner note has been reviewed by physician. Signing provider agrees with the documented findings, assessment, and plan of care. Past Medical History Past Medical History: Atrial Fibrillation, Coronary Artery Disease (CAD), Cancer, Heart Failure, COPD, Diabetes Mellitus, Hypertension, Liver Disease, Myocardial Infarction (MS), Thyroid Disorder Additional Past Medical History / Comment(s): See Dr Carrera's H&P,mantle cell lymphoma treated 9-10 years ago with chemo, hx pleural effusion L side with thoracentesis x2, sepsis, urinary retention, hepatitis in 1950 type unknown, diff swallowing, decreased kidney function Last Myocardial Infarction Date:: 1998 History of Any Multi-Drug Resistant Organisms: None Reported Past Surgical History: AICD, Coronary Bypass/CABG, Heart Catheterization, Pacemaker Additional Past Surgical History / Comment(s): PTCA, 1998 4 vessel CABG, cardioversion, L thoracentesis x2, colonoscopy, bone marrow bx, bilateral cataract removal, mediport. Past Anesthesia/Blood Transfusion Reactions: No Reported Reaction Type of Cardiac Device: Permanent Pacemaker, AICD Device Placement Date:: 2004 implant/2017 gen change Past Psychological History: No Psychological Hx Reported Smoking Status: Former smoker Past Alcohol Use History: None Reported Past Drug Use History: None Reported - Past Family History Mother Family Medical History: No Reported History Additional Family Medical History / Comment(s): Mother was healthy and lived to be 86yrs old. Brother(s) Family Medical History: Cancer Father Family Medical History: Cancer Additional Family Medical History / Comment(s): Father had bone cancer. He also had "heart problems." He at the age of 82 yrs. Medications and Allergies Home Medications Medication Instructions Recorded Confirmed Type Aspirin EC [Ecotrin Low Dose] 81 mg PO DAILY 01/31/15 02/19/22 History Levothyroxine Sodium [Synthroid] 100 mcg PO DAILY 06/22/17 02/19/22 History Amiodarone [Cordarone] 100 mg PO DAILY #90 tab 05/29/18 02/19/22 Rx Allopurinol [Zyloprim] 300 mg PO HS 01/28/22 02/19/22 History Cranberry Fruit Extract [Cranberry] 200 mg PO DAILY 01/28/22 02/19/22 History Metoprolol Tartrate [Lopressor] 50 mg PO DAILY 01/28/22 02/19/22 History Sacubitril/Valsartan [Entresto 24 1 tab PO BID 01/28/22 02/19/22 History mg-26 mg Tablet] Warfarin [Coumadin] 1.25 mg PO SUTUWEFR 01/28/22 02/19/22 History Warfarin [Coumadin] 2.5 mg PO MOTHSA 01/28/22 02/19/22 History calcitrioL [Calcitriol] 0.25 mcg PO COUGHLIN 01/28/22 02/19/22 History Furosemide [Lasix] 40 mg PO DAILY@1400 90 Days #90 tab 01/31/22 02/19/22 Rx Furosemide [Lasix] 80 mg PO DAILY 02/19/22 02/19/22 History Allergies Allergy/AdvReac Type Severity Reaction Status Date / Time No Known Allergies Allergy Verified 02/19/22 12:59 Physical Exam Vitals: Vital Signs Temp Pulse Resp BP BP Pulse Ox 02/21/22 07:42 97.6 F 78 19 104/53 91 L 02/21/22 02:00 97.9 F 80 18 93/48 02/21/22 00:19 98.5 F 82 16 101/48 92 L 02/20/22 14:00 97.4 F L 71 18 129/60 97 Intake and Output 02/20/22 02/21/22 02/21/22 22:59 06:59 14:59 Intake Total 1080 480 Output Total 100 700 Balance 980 -220 Intake: Oral 1080 480 Output: Urine 100 700 Other: Voiding Method Urinal # Voids 1 Results 02/22/22 04:11 02/22/22 04:11 Comprehensive Metabolic Panel 02/21/22 Range/Units 03:47 Sodium 140 (135-145) mmol/L Potassium 4.3 (3.5-5.5) mmol/L Chloride 106 (96-109) mmol/L Carbon Dioxide 22.1 (20.0-27.5) mmol/L BUN 61.5 H (9.0-27.0) mg/dL Creatinine 3.1 H (0.6-1.5) mg/dL Glucose 102 (70-110) mg/dL Calcium 8.4 L (8.7-10.3) mg/dL Current Medications Generic Name Dose Route Start Last Admin Trade Name Freq PRN Reason Stop Dose Admin Amiodarone HCl 100 mg 02/20/22 09:00 02/21/22 10:23 Amiodarone 100 Mg Tab PO 100 mg DAILY MAME Administration Aspirin 81 mg 02/20/22 09:00 02/21/22 10:23 Aspirin 81 Mg PO 81 mg DAILY MAME Administration Furosemide 40 mg 02/20/22 21:00 02/21/22 10:29 Furosemide 10 Mg/Ml 4 Ml Vial IV 40 mg Q12HR MAME Administration Levothyroxine Sodium 100 mcg 02/20/22 06:30 02/21/22 05:47 Levothyroxine 100 Mcg Tab PO 100 mcg 0630 MAME Administration Intake and Output 02/20/22 02/21/22 02/21/22 22:59 06:59 14:59 Intake Total 1080 480 Output Total 100 700 Balance 980 -220 Intake: Oral 1080 480 Output: Urine 100 700 Other: Voiding Method Urinal # Voids 1 02/19/22 12:29 02/21/22 03:47
[2022-02-22] MEDS: METOPROLOL TARTRATE 50 MG TAB PO SCH (12:27)
--- NOTE | 2022-02-22 12:40 | P.PN ---
Subjective Pt is seen for f/u for CARRIE, slowly improving. Admitted with hypotension. Underlying catdiomyopathy , EF < 20% Currently being diuresed. Good UOP No complaints today. Underlying CKD stage 4 with baseline cr 2.4-2.6 mg/dL Patient has been maintained on IV Lasix. No complaints of chest pains or shortness of breath. Patient has been switched over to oral diuretics. Objective - Vital Signs Vital signs: Vital Signs Temp 97.8 F 02/22/22 08:00 Pulse 81 02/22/22 08:00 Resp 18 02/22/22 08:00 BP 97/57 02/22/22 08:00 Pulse Ox 95 02/22/22 08:00 Intake & Output 02/21/22 02/22/22 02/22/22 18:59 06:59 18:59 Intake Total 900 Balance 900 Intake: Oral 900 Other: Voiding Method Urinal Toilet Toilet - Exam Awake, comfortable, alert oriented x3. Lungs are clar CVS S1 and S2 Abdomen is soft Extremities show no edema. RN EXAMINER exam is intact - Labs CBC & Chem 7: 02/22/22 04:11 02/22/22 04:11 Labs: Abnormal Lab Results - Last 24 Hours (Table) 02/22/22 02/22/22 02/22/22 Range/Units 04:11 04:11 04:11 RBC 4.03 L (4.40-5.60) X 10*6/uL Hgb 11.0 L (13.0-17.0) g/dL Hct 36.8 L (39.6-50.0) % MCHC 29.9 L (32.0-37.0) g/dL RDW 15.7 H (11.5-14.5) % Eosinophils # 0.63 H (0.04-0.35) X 10*3/uL PT 15.6 H (9.9-11.9) sec INR 1.44 H (0.90-1.11) BUN 63 H (9-20) mg/dL Creatinine 2.76 H (0.66-1.25) mg/dL Glucose 100 H (74-99) mg/dL Calcium 8.2 L (8.4-10.2) mg/dL Assessment and Plan Assessment: 1. Acute kidney injury associated with hypotension and hypoperfusion. Currently nonoliguric. Improving. 2. 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 UA has been benign. No evidence of obstruction noted on previous ultrasound Baseline creatinine about 2.4-2.6 mg/dL 3. Systolic CHF with recent admission for exacerbation last month. Ejection fraction 20% 4. Hypotension, hypovolemic versus secondary to him severe cardiomyopathy. No evidence of infection. Decrease dose of diuretics 5. 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 Hyperuricemia maintained on allopurinol Plan: May continue with oral diuretics Patient is stable for discharge from nephrology standpoint
--- NOTE | 2022-02-22 13:39 | P.PN ---
Subjective Progress Note Date: 02/22/22 Acute kidney injury associated with hypotension and hypoperfusion 86-year-old male, history of atrial fibrillation, CAD, CHF, COPD, diabetes mellitus, hypertension, hypothyroidism and liver disease who presents emergency Department with the complaint of feeling extremely weak and having low blood pressure. According to the his blood pressures been running a little bit l ow last couple of days but this morning was excessively low. One of the patient's blood pressure 72/69 which didn't seem like a legitimate blood pressure. Patient states he felt very weak when he got up it was no focal weakness was generalized. Patient denies any recent fever or chills. Patient denies any chest pain palpitations difficulty breathing or shortness of breath. Patient denies any dysuria hematuria urinary frequency. Patient denies any recent fever or chills. Patient denies any injury or trauma. Patient states just overall he feels extremely weak. Patient states he has not taken any of his medications today. Workup in ED reveals pulmonary edema on chest x-ray EKG shows paced rhythm at 83 bpm QRS is 181 Q-T intervals 436 QTC is 476. Labs completed revealed the CBC of 11.5, hemoglobin 11.9, platelet count of 243, BUN of 79 with creatinine of 3.61; troponin is elevated at 0.035; BNP of 8820 patient has been evaluated by urology and is recommended to decrease Lasix to 40 mg IV every 12 hours as clinically patient does not appear to be significantly volume overloaded. Check bladder scan and rule out urine retention; Avoid any nephrotoxic agents; Repeat labs in a.m. Accurate I's and O's 02/21/2022 Patient is seen and evaluated in follow-up this morning currently sitting up in the chair on room air and denies any worsening shortness of breath. Patient's blood pressures continue to be low at 104/53 and maintained on IV Lasix with nephrology following closely. Patient follows with cardiology in the outpatient setting and will consult cardiology for CHF. Patient also has chronic kidney disease and follows with nephrology outpatient and current creatinine is 3.1 today the sodium of 140 and potassium is 4.3. Chest x-ray ordered and pending at this time. 02/22/2022 Patient is seen in follow-up this morning and has been transitioned oral Lasix with cardiology and nephrology following. Patient was maintained on Entresto although cardiology commode holding due to hypotension. Pacemaker to be interrogated today. Creatinine stable at 2.76 with a sodium of 138 and potassium is 4.4. Patient does follow with nephrology outpatient and will follow-up with repeat labs once discharged. Patient has been resumed on Coumadin and current INR is 1.44 and will repeat labs in the a.m. with possible discharge in 24 hours. Patient denies any worsening shortness of breath or chest pain. Patient is afebrile. No reports of nausea or vomiting and patient is tolerating diet. Review of systems: Constitutional: No reports of fatigue, fever, or chills Cardiovascular: No reports of chest pain or palpitations Respiratory: No reports of worsening shortness of breath or cough GI: No reports of nausea, vomiting, or diarrhea : No reports of dysuria or retention Neurovascular: No reports of weakness or numbness All medications have been reviewed Active Medications Amiodarone HCl (Amiodarone 100 Mg Tab) 100 mg PO DAILY [facility] Last Admin: 02/22/22 08:17 Dose: 100 mg Documented by: Aspirin (Aspirin 81 Mg) 81 mg PO DAILY [facility] Last Admin: 02/22/22 08:17 Dose: 81 mg Documented by: Furosemide (Furosemide 40 Mg Tab) 40 mg PO DAILY@1400 [facility] Furosemide (Furosemide 80 Mg Tab) 80 mg PO DAILY [facility] Levothyroxine Sodium (Levothyroxine 100 Mcg Tab) 100 mcg PO 0630 [facility] Last Admin: 02/22/22 05:47 Dose: 100 mcg Documented by: Metoprolol Tartrate (Metoprolol Tartrate 50 Mg Tab) 50 mg PO DAILY [facility] Last Admin: 02/22/22 12:27 Dose: 50 mg Documented by: Miscellaneous Information (Warfarin Per Pharmacy) 1 each MISCELLANE DIRECTED PRN; Protocol PRN Reason: Per Protocol Warfarin Sodium (Warfarin 3 Mg Tab) 3 mg PO ONCE ONE Stop: 02/22/22 18:01 Physical exam: Gen: This is a 86-year-old male awake, alert and oriented 3, well-developed, well-nourished. HEENT: Head is atraumatic, normocephalic. Pupils equal, round. Sclerae is anicteric. NECK: Supple. No JVD. No lymphadenopathy. No thyromegaly. LUNGS: Diminished breath sounds laterally with no wheezes or rhonchi. No intercostal retractions. HEART: Irregularly irregular, S1, S2 muffled ABDOMEN: Soft. Bowel sounds are present. No masses. No tenderness. EXTREMITIES: No pedal edema. No calf tenderness. NEUROLOGICAL: Patient is awake, alert and oriented x3. Cranial nerves 2 through 12 are grossly intact. Assessment: Acute pulmonary edema Elevated troponin, rule out acute coronary syndrome Hypotension currently with a history of hypertension Dehydration Acute on chronic kidney disease stage IV Atrial fibrillation, currently rate controlled Coumadin therapy Coronary artery disease Chronic congestive heart failure with systolic dysfunction and most recent EF less than 20% COPD, not in acute exacerbation Diabetes mellitus, diet controlled Hypothyroidism GI prophylaxis DVT prophylaxis Full code Plan: Recommend to continue with current medications and has been transitioned oral Lasix today and also metoprolol with cardiology following. Plan is for pacemaker interrogation today Nephrology following and recommended close outpatient follow-up Encouraged heart healthy renal diet Patient has been on Coumadin and current INR is 1.4 and recommend repeat labs in the a.m. Continue to monitor vital signs and blood pressure closely Due to multiple complex medical issues, prognosis is guarded Possible discharge in 24 hours The impression and plan of care has been dictated by Liyah Rizvi, Nurse Practitioner as directed. Dr. Dayday MD I have performed a history and examination and MDM of this patient, discussed the same with the dictator, and agree with the dictator's assessment and plan as written ,documented as a scribe. Based on total visit time, I have performed more than 50% of the visit. Objective - Vital Signs Vital signs: Vital Signs Temp 98.1 F 02/22/22 01:57 Pulse 89 02/22/22 01:57 Resp 18 02/22/22 01:57 BP 99/55 02/22/22 01:57 Pulse Ox 96 02/22/22 01:57 Intake & Output 02/21/22 02/22/22 02/22/22 18:59 06:59 18:59 Intake Total 900 Balance 900 Intake: Oral 900 Other: Voiding Method Urinal Toilet - Labs CBC & Chem 7: 02/22/22 04:11 02/22/22 04:11 Labs: Abnormal Lab Results - Last 24 Hours (Table) 02/21/22 02/22/22 Range/Units 03:47 04:11 BUN 61.5 H 63 H (9.0-27.0) mg/dL Creatinine 3.1 H 2.76 H (0.6-1.5) mg/dL Est GFR (CKD-EPI)AfAm 20.3 L (60.0-200.0) Est GFR (CKD-EPI)NonAf 17.5 L (60.0-200.0) Glucose 100 H (74-99) mg/dL Calcium 8.4 L 8.2 L (8.7-10.3) mg/dL
[2022-02-22] MEDS ORDERED: FUROSEMIDE 40 MG TAB PO SCH (14:00)
[2022-02-22] MEDS ORDERED: WARFARIN 3 MG TAB PO ONE (18:00)
[2022-02-23] MEDS: LEVOTHYROXINE 100 MCG TAB PO SCH (06:17)
[2022-02-23] MEDS: METOPROLOL TARTRATE 50 MG TAB PO SCH (07:34)
[2022-02-23] MEDS: AMIODARONE 100 MG TAB PO SCH (07:34)
[2022-02-23] MEDS: ASPIRIN 81 MG PO SCH (07:34)
[2022-02-23 07:37] VITALS: BP 111/56; PULSE 65; RESP 16; TEMP 98.3
[2022-02-23] MEDS ORDERED: FUROSEMIDE 80 MG TAB PO SCH (09:00)
[2022-02-23 09:41] LABS: INR 1.42 (0.90-1.11); Prothrombin Time 15.4 sec (9.9-11.9)
--- NOTE | 2022-02-23 10:45 | P.PN ---
Subjective This is a pleasant 86-year-old female past medical history significant for ischemic cardiomyopathy with a known EF of 20%, status post bi-V ICD, coronary artery disease status post CABG in 1998 (ZARCO-LAD, VG-D1, VG-OM1, VG-RCA), chronic heart failure with reduced ejection fraction, chronic kidney disease, hypertension, paroxysmal atrial fibrillation on Coumadin. He follows in the office with Dr. Carrera. We have been asked to see in consultation for congestive heart failure. Patient presents to the hospital on 02/19/22 with complaints of generalized weakness and hypotension. He states he noted at home his blood pressure being low with 70s/60s. He states he had generalized weakness. Denies chest pain, shortness of breath, lightheadedness, dizziness, palpitations, orthopnea or PND. Patient's BP remains 90s/50s. DIAGNOSTICS EKG reveals V paced HR 83 Most recent echocardiogram 01/28/2022 revealed an EF of less than 20%, grade 2 diastolic dysfunction, large hypokinetic areas of anterior, anterolateral, inferior lateral and inferior [place]. Mild to moderate aortic regurgitation, moderate to severe mitral regurgitation, moderate tricuspid regurgitation, PASP 45mmHg. Current home cardiac medications include Coumadin, and Entresto 24 mg/26 mg twice a day, metoprolol titrate 50 mg daily, Lasix 40 mg nightly and 80 mg daily, aspirin 81 mg daily, amiodarone 200 mg daily 02/23/2022 Patient seen and examined at bedside, no distress. He denies any chest pain, shortness of breath, lightheadedness or dizziness. Patient continues to be hypotensive with a blood pressure 88/52. His generalized weakness/fatigue have improved. PHYSICAL EXAMINATION Vitals reviewed. CONSTITUTIONAL: No apparent distress. HEENT: Head is normocephalic. Pupils are equal, round. Sclerae anicteric. Mucous membranes of the mouth are moist. No JVD. No carotid bruit. CHEST EXAMINATION: Lungs are clear to auscultation. No chest wall tenderness is noted on palpation or with deep breathing. HEART EXAMINATION: Regular rate and rhythm. S1, S2 heard. No murmurs, gallops or rub. ABDOMEN: Soft, nontender. Positive bowel sounds. EXTREMITIES: 2+ peripheral pulses, 1+ bilateral extremity edema and no calf tenderness. NEUROLOGIC EXAMINATION: Patient is awake, alert and oriented x3. ASSESSMENT Symptoms of hypotension and generalized fatigue/weakness Chronic heart failure with reduced ejection fraction <20% Ischemic cardiomyopathy with a known EF of 20% Status post bi-V ICD Coronary artery disease status post CABG in 1998 (ZARCO-LAD, VG-D1, VG-OM1, VG-RCA) Acute on Chronic kidney disease stage 4 Hypertension Paroxysmal atrial fibrillation on Coumadin PLAN We will hold Entresto at this time secondary to hypotension Continue PO Lasix Continue beta lelo and amiodarone Continue coumadin From cardiology perspective, patient is discharged home. Patient has a follow up with Dr. Carrera tomorrow 02/24/2022 at 10:30am, patient advised to follow up and keep appointment. Adjust entresto as outpatient. Nurse practitioner note has been reviewed by physician. Signing provider agrees with the documented findings, assessment, and plan of care. Objective - Vital Signs Vital signs: Vital Signs Temp 98.3 F 02/23/22 07:36 Pulse 65 02/23/22 07:36 Resp 16 02/23/22 07:36 BP 111/56 02/23/22 07:36 Pulse Ox 92 L 02/23/22 07:36 Intake & Output 02/22/22 02/23/22 02/23/22 18:59 06:59 18:59 Intake Total 1080 Balance 1080 Intake: Oral 1080 Other: Voiding Method Toilet Toilet # Voids 3 - Labs CBC & Chem 7: 02/22/22 04:11 02/22/22 04:11 Labs: Abnormal Lab Results - Last 24 Hours (Table) 02/23/22 Range/Units 03:51 PT 15.4 H (9.9-11.9) sec INR 1.42 H (0.90-1.11)
--- NOTE | 2022-02-23 15:07 | P.DS ---
Providers Date of admission: 02/19/22 14:41 Expected date of discharge: 02/23/22 Attending physician: Fernanda Dalton Consults: 02/19/22 14:41 Consult Physician Urgent Consulting Provider: Mary Vaz Consult Reason/Comments: Acute on chronic renal failure Do you want consulting provider notified?: Yes 02/21/22 11:45 Consult Physician Routine Consulting Provider: Edu Carrera Consult Reason/Comments: CHF Do you want consulting provider notified?: Yes Primary care physician: Silas Barrios Hospital Course: Final diagnosis Acute pulmonary edema Elevated troponin, ruled out acute coronary syndrome Hypotension currently with a history of hypertension Dehydration Acute on chronic kidney disease stage IV Atrial fibrillation, currently rate controlled Coumadin therapy Coronary artery disease Chronic congestive heart failure with systolic dysfunction and most recent EF less than 20% COPD, not in acute exacerbation Diabetes mellitus, diet controlled Hypothyroidism GI prophylaxis DVT prophylaxis Full code Discharge disposition Patient is being discharged in a stable condition with guarded prognosis to home. Patient will follow-up with Dr. Silas Barrios in the outpatient setting upon discharge. Patient is to follow-up with cardiology Dr. Carrera at his scheduled appointment tomorrow and also nephrology outpatient. Total time taken is greater than 35 minutes. Hospital course This is an 86-year-old male who was recently admitted with acute kidney injury with hypotension and hypoperfusion and was being closely monitored. Patient evaluated and followed by cardiology along with nephrology as patient had a BNP of 8820 and creatinine was 3.61 on admission. Patient had been on entresto per cardiology although given his hypotension recommend holding and discussing further with cardiology appointment tomorrow. Kidney functions improved and patient was maintained on IV Lasix and will continue current dosing of Lasix and outpatient follow-up with nephrology. Patient also on Coumadin and recommend close monitoring of PT/INR with repeat labs provided. Patient would like to go home today. Currently no reports of chest pain, shortness of breath, or palpitations. Patient is afebrile. No reports of nausea or vomiting and patient is tolerating diet. Patient will be discharged home today. Physical exam: Gen: This is a 86-year-old male who is awake, alert and oriented 3, well- developed, well-nourished. HEENT: Head is atraumatic, normocephalic. Pupils equal, round. Sclerae is anicteric. NECK: Supple. No JVD. No lymphadenopathy. No thyromegaly. LUNGS: Clear to auscultation. No wheezes or rhonchi. No intercostal retractions. HEART: Regular rate and rhythm. No murmur. ABDOMEN: Soft. Bowel sounds are present. No masses. No tenderness. EXTREMITIES: No pedal edema. No calf tenderness. NEUROLOGICAL: Patient is awake, alert and oriented x3. Cranial nerves 2 through 12 are grossly intact. Please refer to medication reconciliation sheet for a list of medications. The impression and plan of care has been dictated by Liyah Rizvi, Nurse Practitioner as directed. Dr. Dayday MD I have performed a history and examination and MDM of this patient, discussed the same with the dictator, and agree with the dictator's assessment and plan as written ,documented as a scribe. Based on total visit time, I have performed more than 50% of the visit. Patient Condition at Discharge: Fair Plan - Discharge Summary Discharge Rx Participant: Yes New Discharge Prescriptions: Continue Aspirin EC [Ecotrin Low Dose] 81 mg PO DAILY Levothyroxine Sodium [Synthroid] 100 mcg PO DAILY Amiodarone [Cordarone] 100 mg PO DAILY #90 tab calcitrioL [Calcitriol] 0.25 mcg PO COUGHLIN Warfarin [Coumadin] 1.25 mg PO SUTUWEFR Furosemide [Lasix] 40 mg PO DAILY@1400 90 Days #90 tab Furosemide [Lasix] 80 mg PO DAILY Warfarin [Coumadin] 2.5 mg PO MOTHSA Allopurinol [Zyloprim] 300 mg PO HS Metoprolol Tartrate [Lopressor] 50 mg PO DAILY Cranberry Fruit Extract [Cranberry] 200 mg PO DAILY Discontinued Sacubitril/Valsartan [Entresto 24 mg-26 mg Tablet] 1 tab PO BID Discharge Medication List Aspirin EC [Ecotrin Low Dose] 81 mg PO DAILY 01/31/15 [History] Levothyroxine Sodium [Synthroid] 100 mcg PO DAILY 06/22/17 [History] Amiodarone [Cordarone] 100 mg PO DAILY #90 tab 05/29/18 [Rx] Allopurinol [Zyloprim] 300 mg PO HS 01/28/22 [History] Cranberry Fruit Extract [Cranberry] 200 mg PO DAILY 01/28/22 [History] Metoprolol Tartrate [Lopressor] 50 mg PO DAILY 01/28/22 [History] Warfarin [Coumadin] 1.25 mg PO SUTUWEFR 01/28/22 [History] Warfarin [Coumadin] 2.5 mg PO MOTHSA 01/28/22 [History] calcitrioL [Calcitriol] 0.25 mcg PO COUGHLIN 01/28/22 [History] Furosemide [Lasix] 40 mg PO DAILY@1400 90 Days #90 tab 01/31/22 [Rx] Furosemide [Lasix] 80 mg PO DAILY 02/19/22 [History] Follow up Appointment(s)/Referral(s): Edu Carrera MD [STAFF PHYSICIAN] - 02/24/22 10:30 am Mary Vaz MD [STAFF PHYSICIAN] - 03/30/22 10:00 am Silas Barrios MD [Primary Care Provider] - 03/08/22 10:15 am Ambulatory/Diagnostic Orders: Prothrombin Time INR [LAB.AMB] Time Frame: 1 Day, Location: None Selected Patient Instructions/Handouts: Dehydration (DC) Activity/Diet/Wound Care/Special Instructions: Activity Limited until follow-up Continue taking medications as prescribed Continue to hold Entresto and follow-up with Dr. Carrera tomorrow at your scheduled appointment to discuss Follow-up with primary care provider on discharge Follow-up with nephrology outpatient Take scheduled dose of Coumadin ronny Recommend repeat PT/INR tomorrow to monitor INR level Discharge Disposition: HOME SELF-CARE
--- NOTE | 2022-02-23 17:31 | P.PN ---
Subjective Pt is seen for f/u for CARRIE, slowly improving. Admitted with hypotension. Underlying catdiomyopathy , EF < 20% Currently being diuresed. Good UOP No complaints today. Underlying CKD stage 4 with baseline cr 2.4-2.6 mg/dL Patient has been maintained on IV Lasix. No complaints of chest pains or shortness of breath. Patient has been switched over to oral diuretics. Objective - Vital Signs Vital signs: Vital Signs Temp 98.3 F 02/23/22 07:36 Pulse 65 02/23/22 07:36 Resp 16 02/23/22 07:36 BP 111/56 02/23/22 07:36 Pulse Ox 92 L 02/23/22 07:36 Intake & Output 02/22/22 02/23/22 02/23/22 18:59 06:59 18:59 Intake Total 1080 Balance 1080 Intake: Oral 1080 Other: Voiding Method Toilet Toilet # Voids 3 - Exam Awake, comfortable, alert oriented x3. Lungs are clar CVS S1 and S2 Abdomen is soft Extremities show no edema. 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 Acute kidney injury associated with hypotension and hypoperfusion. Currently nonoliguric. Improving. 2. 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 UA has been benign. No evidence of obstruction noted on previous ultrasound Baseline creatinine about 2.4-2.6 mg/dL 3. Systolic CHF with recent admission for exacerbation last month. Ejection fraction 20% 4. Hypotension, hypovolemic versus secondary to him severe cardiomyopathy. No evidence of infection. Decrease dose of diuretics 5. 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 Hyperuricemia maintained on allopurinol Plan: OK for discharge F/u for CKD and CHF in 1 week
[2022-02-23] MEDS ORDERED: WARFARIN 3 MG TAB PO ONE (18:00)
--- NOTE | 2022-02-24 17:47 | P.EPPROC ---
- EP Procedure Note Electrophysiology Procedure Note: Biventricular ICD interrogation and reprogramming Indication the procedure Refractory heart failure despite biventricular pacing and guideline directed medical treatment including ENTRESTO beta blockers The [facility] medical biventricular ICD was interrogated on February, He is in sinus rhythm Atrial pacing threshold 0.75 V at 0.5 ms, P waves 1.7 mV and pacing impedance 400 ohms RV pacing threshold 1.2 V at 0.5 ms, R waves 11 mV and pacing impedance 390 ohms LV pacing threshold V1-M2 is 1 warted 0.5 ms and pacing impedance 890 ohms High-voltage impedance 47 ohms He is programmed DDDR 50 The following changes were made LV offset was changed to 30 ms LV configuration was changed to distal tip 1-mid to Syncope AV was on as before Sensory rate change 220 beats a minute Rate-responsive AV delay medium
--- NOTE | 2022-02-25 09:35 | CDI ---
Documentation Clarification Form Date: 02/25/22 From: Viviane Pearson Admit Date: 02/19/2022 02:41:00 PM Patient Name: Ramone Patel Visit Number: [id number] Discharge Date: 02/23/2022 01:09:00 PM ATTENTION: The Clinical Documentation Specialists (CDI) and [facility] Coding Staff appreciate your assistance in clarifying documentation. Please respond to the clarification below the line at the bottom and electronically sign. The CDI & [facility] Coding staff will review the response and follow-up if needed. Please note: Queries are made part of the Legal Health Record. If you have any questions, please contact the author of this message via ITS. Dr. Ozzie Parikh, Conflicting documentation has been found in the medical record. As attending physician, please provide clarification. Per H&P, acute pulmonary edema, will start with gentle diuresis with Lasix 40 mg IV every 12 hours; monitor strict GUILLERMINA's and daily weights; low-salt and fluid restricted diet. Per DS, chronic congestive heart failure with systolic dysfunction and most recent EF less than 20% History/Risk Factors: ischemic cardiomyopathy, acute renal failure with CKD 4, HTN, DM T2 w CKD, PAF, hypotension, COPD Clinical Indicators: BNP-8820. 5/14 CXR-Correlate for CHF with pulmonary vascular congestion.Possible small left effusion with adjacent atelectasis and/or consolidation. Treatment: IV Lasix Please clarify which diagnosis is most appropriate: [ ] Acute pulmonary edema [ ] Acute on chronic systolic CHF [ ] Other (please specify) [ ] Unable to determine MTDD
--- NOTE | 2022-03-02 09:30 | CDI ---
Documentation Clarification Form Date: 02/25/2022 09:34:00 AM From: Deya Wahl Phone: Admit Date: 02/19/2022 02:41:00 PM Patient Name: Ramone Patel Visit Number: [id number] Discharge Date: 02/23/2022 01:09:00 PM ATTENTION: The Clinical Documentation Specialists (CDI) and [facility] Coding Staff appreciate your assistance in clarifying documentation. Please respond to the clarification below the line at the bottom and electronically sign. The CDI & [facility] Coding staff will review the response and follow-up if needed. Please note: Queries are made part of the Legal Health Record. If you have any questions, please contact the author of this message via ITS. Dr. Lynne Naylor Conflicting documentation has been found in the medical record. As attending physician, please provide clarification. Per H&P: acute pulmonary edema, will start with gentle diuresis with Lasix 40 mg IV every 12 hours; monitor strict GUILLERMINA's and daily weights; low-salt and fluid restricted diet. Per Dischrg Sum: Acute pulmonary edema and chronic congestive heart failure with systolic dysfunction and most recent EF less than 20% History/Risk Factors: ischemic cardiomyopathy, acute renal failure with CKD 4, HTN, DM T2 w CKD, PAF, hypotension, COPD Clinical Indicators: BNP-8820. 5/14 CXR-Correlate for CHF with pulmonary vascular congestion. Possible small left effusion with adjacent atelectasis and/or consolidation. Treatment: IV Lasix Please clarify which diagnosis is most appropriate: [ ] Acute pulmonary edema (not related to CHF) [ x ] Acute on chronic systolic CHF (cause of acute pulmonary edema) [ ] Other (please specify) [ ] Unable to determine MTDD
== END 2022-02-23 13:09 | disposition home or self-care (01) ==
LOC: EC 11:15 → INTOOBSV 14:41 → 4SSUR 14:41 → UNDODISIN 02-23 13:09
PROVIDERS: ADMIT Hospitalist; ATTEND Hospitalist
PROC: 4B02XTZ Measurement of Cardiac Defibrillator, External Approach (ICD-10-PCS; principal; 2022-02-22)
DX: N17.9 Acute kidney failure, unspecified (principal); I50.23 Acute on chronic systolic (congestive) heart failure; I13.0 Hypertensive heart and chronic kidney disease with heart failure and stage 1 through stage 4 chronic kidney disease, or unspecified chronic kidney disease; N18.4 Chronic kidney disease, stage 4 (severe); E11.22 Type 2 diabetes mellitus with diabetic chronic kidney disease; I95.9 Hypotension, unspecified; E86.0 Dehydration; E83.9 Disorder of mineral metabolism, unspecified; I48.0 Paroxysmal atrial fibrillation; J44.9 Chronic obstructive pulmonary disease, unspecified; I25.10 Atherosclerotic heart disease of native coronary artery without angina pectoris; I25.5 Ischemic cardiomyopathy; I08.3 Combined rheumatic disorders of mitral, aortic and tricuspid valves; E03.9 Hypothyroidism, unspecified; K76.9 Liver disease, unspecified; E79.0 Hyperuricemia without signs of inflammatory arthritis and tophaceous disease; I25.2 Old myocardial infarction; R79.89 Other specified abnormal findings of blood chemistry; Z79.82 Long term (current) use of aspirin; Z79.01 Long term (current) use of anticoagulants; Z79.890 Hormone replacement therapy; Z79.899 Other long term (current) drug therapy; Z95.810 Presence of automatic (implantable) cardiac defibrillator; Z87.891 Personal history of nicotine dependence; Z95.1 Presence of aortocoronary bypass graft; Z98.61 Coronary angioplasty status; Z85.72 Personal history of non-Hodgkin lymphomas; Z92.21 Personal history of antineoplastic chemotherapy; Z86.19 Personal history of other infectious and parasitic diseases; Z98.42 Cataract extraction status, left eye; Z98.41 Cataract extraction status, right eye; Z87.448 Personal history of other diseases of urinary system; Z98.890 Other specified postprocedural states; Z80.8 Family history of malignant neoplasm of other organs or systems; Z82.49 Family history of ischemic heart disease and other diseases of the circulatory system
CPT/HCPCS: 96376 ×3; 96375; 96361; 96365; 99285; 36415; 93005; 83880; 80053; 80048 ×3; 83605; 83735; 84484; 85025 ×2; 85610 ×3; 85730; 81003; 71045; 71046; G0378 ×5; J1940 ×4; J0696

== ENCOUNTER → 2023-03-15 | Outpatient (CLI) | payer MEDICARE ==
--- NOTE | 2023-03-15 14:25 | CT ---
EXAMINATION TYPE: CT abdomen pelvis wo con DATE OF EXAM: 03/15/2023 HISTORY: Left flank pain and gross hematuria. CT DLP: 424.6 mGycm. Automated Exposure Control for Dose Reduction was Utilized. TECHNIQUE: CT scan of the abdomen and pelvis is performed without oral or IV contrast. COMPARISON: NONE FINDINGS: Within the limitations of a non-contrast study, the following observations are made. LUNG BASES: Overlying sternal wires are partially imaged. There is partial visualization of cardiomeg andrei and multi lead pacemaker/defibrillator. There is reticulation and tiny nodularity in the bases. T here is trace left pleural effusion. Some honeycombing in the left lung base is present. LIVER/GB: Dependent density in gallbladder is consistent with small stones and/or gallbladder sludge. Punctate calcification anterior left hepatic lobe axial image 33. PANCREAS: No significant abnormality is seen. SPLEEN: Scattered punctate locations throughout the spleen consistent with product of old granulomato us disease. ADRENALS: No significant abnormality is seen. KIDNEYS: Cortical thinning in both kidneys. There are simple appearing thin-walled cysts in both kidn eys noted. Findings consistent with product of chronic medical renal disease. No hydronephrosis seen bilaterally. Mild to moderately distended bladder without intraluminal mass or calculus. BOWEL: Prominent sigmoid colonic diverticulosis without CT evidence for acute diverticulitis. Additio nal scattered colonic diverticula in the left colon. No suspicious small or large bowel dilatation. N ormal-appearing appendix from cecum. GENITAL ORGANS: Enlarged prostate consistent with BPH bulging on bladder base. LYMPH NODES: No greater than 1cm abdominal or pelvic lymph nodes are appreciated. OSSEOUS STRUCTURES: Moderate axial joint space loss and spurring of both hips. Multilevel spinous pro cess hypertrophy. Multilevel spurring in the thoracolumbar spine. OTHER: Severe calcified plaque of the aorta extends into branch vessels.. IMPRESSION: 1. No renal stones or hydronephrosis is seen bilaterally. Source of hematuria not identified. If symp toms persist further investigation with CT urogram would be warranted. No suspicious acute findings s een to account for patient's symptoms of left-sided flank pain on noncontrast CT. Prominent sigmoid c olonic diverticulosis without convincing CT evidence for acute diverticulitis.
== END | disposition home or self-care (01) ==
LOC: RADCTMAIN 12:59
PROVIDERS: ATTEND Family Medicine
DX: K57.30 Diverticulosis of large intestine without perforation or abscess without bleeding (principal); R10.32 Left lower quadrant pain
CPT/HCPCS: 74176

== ENCOUNTER 2023-05-25 09:35 | Inpatient (IN) | payer MEDICARE ==
[2023-05-25] MEDS: FUROSEMIDE 10 MG/ML 4 ML VIAL IV SCH ×2 (10:00→13:42)
--- NOTE | 2023-05-25 10:25 | ED ---
General Adult HPI - General Chief complaint: Recheck/Abnormal Lab/Rx Stated complaint: Leg redness Time Seen by Provider: 05/25/23 10:05 Source: patient, RN/MD (I did speak with Dr. Carrera who sent the patient to the hospital), RN notes reviewed Mode of arrival: ambulatory Limitations: no limitations - History of Present Illness Initial comments: Patient is a pleasant 87-year-old male presenting to the emergency department with concerns for red legs. Onset of symptoms was around a week ago. Patient does have some discomfort and itching. No history of similar symptoms previously. Patient feels his legs may be slightly swollen. 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 No chest pain or dyspnea. - Related Data Home Medications Medication Instructions Recorded Confirmed Aspirin EC [Ecotrin Low Dose] 81 mg PO DAILY 01/31/15 05/25/23 Levothyroxine Sodium [Synthroid] 100 mcg PO DAILY 06/22/17 05/25/23 Warfarin [Coumadin] 1.25 mg PO TUSA 01/28/22 05/25/23 Warfarin [Coumadin] 2.5 mg PO SUMOWETHFR 01/28/22 05/25/23 allopurinoL [Zyloprim] 300 mg PO DAILY 01/28/22 05/25/23 calcitrioL [Calcitriol] 0.25 mcg PO COUGHLIN 01/28/22 05/25/23 Furosemide [Lasix] 80 mg PO DAILY 02/19/22 05/25/23 Ferrous Sulfate [Feosol] 325 mg PO DAILY 05/25/23 05/25/23 Ipratropium-Albuterol Nebulize 3 ml INHALATION RT-TID 05/25/23 05/25/23 [Duoneb 0.5 mg-3 mg/3 ml Soln] Multivitamins, Thera [Multivitamin 1 tab PO DAILY 05/25/23 05/25/23 (formulary)] Previous Rx's Medication Instructions Recorded Amiodarone [Cordarone] 100 mg PO DAILY #90 tab 05/29/18 Allergies Allergy/AdvReac Type Severity Reaction Status Date / Time No Known Allergies Allergy Verified 05/25/23 11:32 Review of Systems ROS Statement: Those systems with pertinent positive or pertinent negative responses have been documented in the HPI. ROS Other: All systems not noted in ROS Statement are negative. Constitutional: Denies: fever Eyes: Denies: eye pain ENT: Denies: ear pain Respiratory: Denies: cough Cardiovascular: Denies: chest pain Skin: Reports: as per HPI, rash Past Medical History Past Medical History: Atrial Fibrillation, Coronary Artery Disease (CAD), Cancer, Heart Failure, COPD, Diabetes Mellitus, Hypertension, Liver Disease, Myocardial Infarction (NH), Thyroid Disorder Additional Past Medical History / Comment(s): See Dr Carrera's H&P,mantle cell lymphoma treated 9-10 years ago with chemo, hx pleural effusion L side with thoracentesis x2, sepsis, urinary retention, hepatitis in 1950 type unknown, diff swallowing, decreased kidney function Last Myocardial Infarction Date:: 1998 History of Any Multi-Drug Resistant Organisms: None Reported Past Surgical History: AICD, Coronary Bypass/CABG, Heart Catheterization, Pacemaker Additional Past Surgical History / Comment(s): PTCA, 1998 4 vessel CABG, cardioversion, L thoracentesis x2, colonoscopy, bone marrow bx, bilateral cataract removal, mediport. Past Anesthesia/Blood Transfusion Reactions: No Reported Reaction Type of Cardiac Device: Permanent Pacemaker, AICD Device Placement Date:: 2004 implant/2017 gen change Past Psychological History: No Psychological Hx Reported Smoking Status: Former smoker Past Alcohol Use History: None Reported Past Drug Use History: None Reported - Past Family History Mother Family Medical History: No Reported History Additional Family Medical History / Comment(s): Mother was healthy and lived to be 86yrs old. Brother(s) Family Medical History: Cancer Father Family Medical History: Cancer Additional Family Medical History / Comment(s): Father had bone cancer. He also had "heart problems." He at the age of 82 yrs. General Exam Limitations: no limitations General appearance: alert, in no apparent distress Head exam: Present: normocephalic Eye exam: Present: normal appearance Neck exam: Present: normal inspection Respiratory exam: Present: normal lung sounds bilaterally Cardiovascular Exam: Present: regular rate, normal rhythm GI/Abdominal exam: Present: soft. Absent: tenderness Extremities exam: Present: pedal edema (+1 bilateral). Absent: calf tenderness Neurological exam: Present: alert Psychiatric exam: Present: normal affect, normal mood Skin exam: Present: erythema (Bilateral lower legs from the knees down, more so anterior with bulla formation) Course Vital Signs 05/25/23 09:44 Temperature 98.4 F Pulse Rate 83 Respiratory 20 Rate Blood Pressure 105/69 O2 Sat by Pulse 99 Oximetry EKG Findings - EKG Results: EKG: interpreted by ADALBERTO (Paced rhythm with a rate of 87. Right axis. Wide QRS, pots. Nonspecific ST-T.) Medical Decision Making - Medical Decision Making Was pt. sent in by a medical professional or institution (, PA, INDEPEND[employer]ENT [employer]UCATION, urgent care, hospital, or fpc...) When possible be specific @ -Patient was sent in by Dr. Schafer Did you speak to anyone other than the patient for history (EMS, parent, family, police, friend...)? What history was obtained from this source @ -Family is present and helps provide history including onset Did you review nursing and triage notes (agree or disagree)? Why? @ -I reviewed and agree with nursing and triage notes Were old charts reviewed (outside hosp., previous admission, EMS record, old EKG, old radiological studies, urgent care reports/EKG's, fpc records)? Report findings @ -No old charts were reviewed Differential Diagnosis (chest pain, altered mental status, abdominal pain women, abdominal pain men, vaginal bleeding, weakness, fever, dyspnea, syncope, headache, dizziness, GI bleed, back pain, seizure, CVA, palpatations, mental health, musculoskeletal)? @ -Differential Fever: Pneumonia, viral URI, endocarditis, myocarditis, pericarditis, otitis, sinusitis, peritonsillar Abscess, retropharyngeal Abscess, epiglottitis, peritonitis, appendicitis, Lamar cystitis, diverticulitis, hepatitis, colitis, UTI, PID, TOA, pyelonephritis, prostatitis, epididymitis, meningitis, encephalitis, pulmonary embolism, CVA, thyroid storm, pancreatitis, adrenal crisis, cavernous sinus thrombosis, this is not meant to be an all-inclusive list. EKG interpreted by me (3pts min.). @ -As above X-rays interpreted by me (1pt min.). @ -Chest x-ray shows cardiomegaly and poststernotomy wires. Pacemaker/defibrillator present. dis connection of right chest port. Increased interstitial markings. CT interpreted by me (1pt min.). @ -None done U/S interpreted by me (1pt. min.). @ -None done What testing was considered but not performed or refused? (CT, X-rays, U/S, labs)? Why? @ -None What meds were considered but not given or refused? Why? @ -None Did you discuss the management of the patient with other professionals (professionals i.e. , PA, [employer]DEPEND[employer]ENT [employer]UC[employer], lab, RT, psych nurse, sr. social media & mobile manager, tempering kiln tender, teacher, eeo officer, registered nurse hh case manager)? Give summary @ -Case was earlier discussed with Dr. Carrera. Case also discussed with Dr. Pedraza, who will admit his patient. Was smoking cessation discussed for >3mins.? @ -No Was critical care preformed (if so, how long)? @ -No Were there social determinants of health that impacted care today? How? (Homelessness, low income, unemployed, alcoholism, drug addiction, transportation, low edu. Level, literacy, decrease access to med. care, [place] [facility], rehab)? @ -No Was there de-escalation of care discussed even if they declined (Discuss DNR or withdrawal of care, Hospice)? DNR status @ -No What co-morbidities impacted this encounter? (DM, HTN, Smoking, COPD, CAD, Can cer, CVA, ARF, Chemo, Hep., AIDS, mental health diagnosis, sleep apnea, morbid obesity)? @ -None Was patient admitted / discharged? Hospital course, mention meds given and route, prescriptions, significant lab abnormalities, going to OR and other pertinent info. @ -Patient and family are made aware of plan. Patient will be admitted with IV antibiotics. Admission orders written. Card ALLERGY consult will be placed. Undiagnosed new problem with uncertain prognosis? @ -No Drug Therapy requiring intensive monitoring for toxicity (Heparin, Nitro, Insulin, Cardizem)? @ -No Were any procedures done? @ -No Diagnosis/symptom? @ -Cellulitis bilateral legs Acute, or Chronic, or Acute on Chronic? @ -Acute Uncomplicated (without systemic symptoms) or Complicated (systemic symptoms)? @ -default Side effects of treatment? @ -No Exacerbation, Progression, or Severe Exacerbation? @ -No Poses a threat to life or bodily function? How? (Chest pain, USA, NH, pneumonia, PE, COPD, DKA, ARF, appy, cholecystitis, CVA, Diverticulitis, Homicidal, Suicidal, threat to staff... and all critical care pts) @ -No - Lab Data Result diagrams: 05/25/23 11:16 Lab Results 05/25/23 Range/Units 11:16 WBC 7.8 (3.8-10.6) k/uL RBC 4.62 (4.30-5.90) m/uL Hgb 12.6 L (13.0-17.5) gm/dL Hct 41.1 (39.0-53.0) % MCV 88.9 (80.0-100.0) fL MCH 27.2 (25.0-35.0) pg MCHC 30.6 L (31.0-37.0) g/dL RDW 16.0 H (11.5-15.5) % Plt Count 244 (150-450) k/uL MPV 8.5 Neutrophils % 76 % Lymphocytes % 15 % Monocytes % 5 % Eosinophils % 3 % Basophils % 1 % Neutrophils # 5.9 (1.3-7.7) k/uL Lymphocytes # 1.1 (1.0-4.8) k/uL Monocytes # 0.4 (0-1.0) k/uL Eosinophils # 0.2 (0-0.7) k/uL Basophils # 0.1 (0-0.2) k/uL Hypochromasia Marked Anisocytosis Slight Disposition Clinical Impression: Bilateral lower leg cellulitis Disposition: ADMITTED IP TO THIS HOSP Is patient prescribed a controlled substance at d/c from ED?: No Referrals: Quentin Pedraza MD [Primary Care Provider] - 1-2 days Time of Disposition: 11:43
--- NOTE | 2023-05-25 11:25 | XR ---
EXAMINATION TYPE: XR chest 2V DATE OF EXAM: 05/25/2023 11:19 AM COMPARISON: Chest radiographs from 02/21/2022. TECHNIQUE: XR chest 2V Frontal and lateral views of the chest. CLINICAL INDICATION:Male, 87 years old with history of edema; FINDINGS: Lungs/Pleura: No evidence of focal consolidation or pneumothorax. Blunting of the costophrenic angles is present. Pulmonary vascularity: Pulmonary vascular congestion. Heart/mediastinum: Cardiomediastinal silhouette is enlarged and stable. Atherosclerotic calcificatio ns are seen in the aorta. Three lead cardiac conduction device overlying the left hemithorax with janis d tips projecting over the right ventricle, right atrium and coronary sinus. Musculoskeletal: No acute osseous pathology. Midline sternotomy wires are noted. Broken/disconnected right chest wall [id number]. IMPRESSION: 1. Pulmonary fibrotic change with superimposed Cardiomegaly, pulmonary vascular congestion and bilat eral pleural effusions. Correlate with BNP for congestive heart failure. 2. Broken/disconnected right chest wall [id number].
[2023-05-25 11:36] LABS: Anisocytosis Slight; Basophils # (A) 0.1 k/uL (0-0.2); Basophils % (A) 1 %; Eosinophils # (A) 0.2 k/uL (0-0.7); Eosinophils % (A) 3 %; HCT 41.1 % (39.0-53.0); HGB 12.6 gm/dL (13.0-17.5); Hypochromasia Marked; Lymphocytes # (A) 1.1 k/uL (1.0-4.8); Lymphocytes % (A) 15 %; MCH 27.2 pg (25.0-35.0); MCHC 30.6 g/dL (31.0-37.0); MCV 88.9 fL (80.0-100.0); Mean Platelet Volume 8.5; Monocytes # (A) 0.4 k/uL (0-1.0); Monocytes % (A) 5 %; Neutrophils # (A) 5.9 k/uL (1.3-7.7); Neutrophils % (A) 76 %; Platelet Count 244 k/uL (150-450); RBC 4.62 m/uL (4.30-5.90); WBC 7.8 k/uL (3.8-10.6)
[2023-05-25] MEDS ORDERED: NALOXONE 0.4 MG/ML 1 ML VIAL IV PRN (11:44)
[2023-05-25 11:48] LABS: INR 3.9 (<1.2); Partial Thromboplastin Time 40.6 sec (22.0-30.0)
[2023-05-25 12:05] LABS: ALT 13 U/L (4-49); AST 14 U/L (17-59); African American GFR (CKD) 18 (>60 ml/min/1.73 sqM); Albumin 3.5 g/dL (3.5-5.0); Alkaline Phosphatase 141 U/L (38-126); Anion Gap 13 mmol/L; Blood Urea Nitrogen 84 mg/dL (9-20); Calcium 9.1 mg/dL (8.4-10.2); Carbon Dioxide 25 mmol/L (22-30); Chloride 103 mmol/L (98-107); Glucose 108 mg/dL (74-99); Non-African American GFR(CKD) 15 (>60 ml/min/1.73 sqM); Potassium 4.6 mmol/L (3.5-5.1); Sodium 141 mmol/L (137-145); Total Bilirubin 0.9 mg/dL (0.2-1.3); Total Protein 6.2 g/dL (6.3-8.2)
--- NOTE | 2023-05-25 13:20 | P.CRDCN ---
History of Present Illness History of present illness: HISTORY OF PRESENT ILLNESS: This is a 87-year-old male with a past medical history significant for coronary artery disease with previous CABG, ischemic cardiomyopathy with previous AICD implantation, congestive heart failure, hypertension, hyperlipidemia, paroxysmal atrial fibrillation, and chronic kidney disease. Patient follows in the office with Dr. Carrera. We have been asked to see the patient in consultation for "cardiac care". Patient examined at the bedside in the emergency room. Patient was seen today by his primary substation operator for worsening shortness of breath and lower extremity edema. The patient was directed to come to the emergency room. The patient currently denies any chest pain or pressure. He does report mild shortness of breath. Denies dizziness or lightheadedness. The patient is being admitted to the hospital secondary to bilateral lower extremity cellulitis. * EKG reveals ventricular paced rhythm * Chest xray pulmonary fibrotic changes with superimposed cardiomegaly, pulmonary vascular congestion and bilateral pleural effusions. * Laboratory data: WBC 7.8. Hemoglobin 12.6. Platelet count 244. INR 3.9. Sodium 141. Potassium 4.6. BUN 34. Creatinine 3.42. ProBNP 73,500. * Current home cardiac medications include amiodarone 100 mg daily, aspirin 81 mg daily, Lasix 80 mg daily, warfarin 1.25 mg on Monday and Monday and 2.5 mg on Monday and Monday. * Most recent echocardiogram obtained in the office December 2022 revealed ejection fraction 25%, moderate to severe MR, moderate AR, moderate TR * Patient underwent Lexiscan stress test in August 2021 which was negative for ischemia REVIEW OF SYSTEMS: At the time of my exam: CONSTITUTIONAL: Denies fever or chills. HEENT: Denies blurred vision, vision changes, or eye pain. Denies hemoptysis CARDIOVASCULAR: Denies chest pain. Denies orthopnea. Denies PND. Denies palpitations RESPIRATORY: Denies shortness of breath. GASTROINTESTINAL: Denies abdominal pain. Denies nausea or vomiting. HEMATOLOGIC: Denies bleeding disorders. GENITOURINARY: Denies any blood in urine. SKIN: Denies pruitis. Denies rash. PHYSICAL EXAM: VITAL SIGNS: Reviewed. GENERAL: Well-developed in no acute distress. HEENT: Head is normocephalic. Pupils are equal, round. Sclerae anicteric. Mucous membranes of the mouth are moist. Neck supple. No JVD or thyromegaly LUNGS: Respirations even and unlabored. Lungs diminished with bibasilar crackles HEART: Regular rate and rhythm. S1 and S2 heard. Systolic murmur noted. ABDOMEN: Soft. Nondistended. Nontender. EXTREMITIES: Normal range of motion. No clubbing or cyanosis. Peripheral pulses intact. 2+ bilateral lower extremity edema with erythema noted. Ulceration noted to lateral aspect of right lower extremity. NEUROLOGIC: Awake and alert. Oriented x 3. ASSESSMENT: Bilateral lower extremity cellulitis Right lower extremity wound Acute on chronic heart failure with reduced EF, 25%, proBNP 73,500 Ischemic cardiomyopathy with previous AICD implantation Coronary artery disease with previous CABG Chronic kidney disease Hypertension Hyperlipidemia Paroxysmal atrial fibrillation Supratherapeutic INR, INR was 3.9 on admission PLAN: No need to repeat echo as this was performed in December 2022 at the office Resume home cardiac medications Begin IV Lasix 40 mg every 8 hours Daily weights, accurate I&O, and monitor kidney function Management of lower extremity cellulitis per primary medicine Further recommendations pending patient's course Nurse practitioner note has been reviewed by physician. Signing provider agrees with the documented findings, assessment, and plan of care. Past Medical History Past Medical History: Atrial Fibrillation, Coronary Artery Disease (CAD), Cancer, Heart Failure, COPD, Diabetes Mellitus, Hypertension, Liver Disease, Myocardial Infarction (CA), Thyroid Disorder Additional Past Medical History / Comment(s): See Dr Carrera's H&P,mantle cell lymphoma treated 9-10 years ago with chemo, hx pleural effusion L side with thoracentesis x2, sepsis, urinary retention, hepatitis in 1950 type unknown, diff swallowing, decreased kidney function Last Myocardial Infarction Date:: 1998 History of Any Multi-Drug Resistant Organisms: None Reported Past Surgical History: AICD, Coronary Bypass/CABG, Heart Catheterization, Pacemaker Additional Past Surgical History / Comment(s): PTCA, 1998 4 vessel CABG, cardioversion, L thoracentesis x2, colonoscopy, bone marrow bx, bilateral catar act removal, mediport. Past Anesthesia/Blood Transfusion Reactions: No Reported Reaction Type of Cardiac Device: Permanent Pacemaker, AICD Device Placement Date:: 2004 implant/2017 gen change Past Psychological History: No Psychological Hx Reported Smoking Status: Former smoker Past Alcohol Use History: None Reported Past Drug Use History: None Reported - Past Family History Mother Family Medical History: No Reported History Additional Family Medical History / Comment(s): Mother was healthy and lived to be 86yrs old. Brother(s) Family Medical History: Cancer Father Family Medical History: Cancer Additional Family Medical History / Comment(s): Father had bone cancer. He also had "heart problems." He at the age of 82 yrs. Medications and Allergies Home Medications Medication Instructions Recorded Confirmed Type Aspirin EC [Ecotrin Low Dose] 81 mg PO DAILY 01/31/15 05/25/23 History Levothyroxine Sodium [Synthroid] 100 mcg PO DAILY 06/22/17 05/25/23 History Amiodarone [Cordarone] 100 mg PO DAILY #90 tab 05/29/18 05/25/23 Rx Warfarin [Coumadin] 1.25 mg PO TUSA 01/28/22 05/25/23 History Warfarin [Coumadin] 2.5 mg PO SUMOWETHFR 01/28/22 05/25/23 History allopurinoL [Zyloprim] 300 mg PO DAILY 01/28/22 05/25/23 History calcitrioL [Calcitriol] 0.25 mcg PO COUGHLIN 01/28/22 05/25/23 History Furosemide [Lasix] 80 mg PO DAILY 02/19/22 05/25/23 History Ferrous Sulfate [Feosol] 325 mg PO DAILY 05/25/23 05/25/23 History Ipratropium-Albuterol Nebulize 3 ml INHALATION RT-TID 05/25/23 05/25/23 History [Duoneb 0.5 mg-3 mg/3 ml Soln] Multivitamins, Thera [Multivitamin 1 tab PO DAILY 05/25/23 05/25/23 History (formulary)] Allergies Allergy/AdvReac Type Severity Reaction Status Date / Time No Known Allergies Allergy Verified 05/25/23 11:32 Physical Exam Vitals: Vital Signs Temp Pulse Resp BP Pulse Ox 05/25/23 09:44 98.4 F 83 20 105/69 99 Intake and Output 05/24/23 05/25/23 05/25/23 22:59 06:59 14:59 Other: Weight 70.307 kg Results 05/25/23 11:16 05/25/23 11:16 Cardiac Enzymes 05/25/23 Range/Units 11:16 AST 14 L (17-59) U/L Coagulation 05/25/23 Range/Units 11:16 PT 38.0 H (9.0-12.0) sec APTT 40.6 H (22.0-30.0) sec CBC 05/25/23 Range/Units 11:16 WBC 7.8 (3.8-10.6) k/uL RBC 4.62 (4.30-5.90) m/uL Hgb 12.6 L (13.0-17.5) gm/dL Hct 41.1 (39.0-53.0) % Plt Count 244 (150-450) k/uL Comprehensive Metabolic Panel 05/25/23 Range/Units 11:16 Sodium 141 (137-145) mmol/L Potassium 4.6 (3.5-5.1) mmol/L Chloride 103 (98-107) mmol/L Carbon Dioxide 25 (22-30) mmol/L BUN 84 H (9-20) mg/dL Creatinine 3.42 H (0.66-1.25) mg/dL Glucose 108 H (74-99) mg/dL Calcium 9.1 (8.4-10.2) mg/dL AST 14 L (17-59) U/L ALT 13 (4-49) U/L Alkaline Phosphatase 141 H (38-126) U/L Total Protein 6.2 L (6.3-8.2) g/dL Albumin 3.5 (3.5-5.0) g/dL Current Medications Generic Name Dose Route Start Last Admin Trade Name Freq PRN Reason Stop Dose Admin Acetaminophen 650 mg 05/25/23 11:44 Acetaminophen Tab 325 Mg Tab PO Q6HR PRN Mild Pain or Fever > 100.5 Amiodarone HCl 100 mg 05/26/23 09:00 Amiodarone 100 Mg Tab PO DAILY MAME Cefazolin Sodium 1,000 mg/ 50 mls @ 100 mls/hr 05/25/23 20:00 Sodium Chloride IVPB Q8H [facility] Protocol Sodium Chloride 1,000 mls @ 20 mls/hr 05/25/23 11:45 Saline 0.9% IV .Q24H MAME Naloxone HCl 0.2 mg 05/25/23 11:44 Naloxone 0.4 Mg/Ml 1 Ml Vial IV Q2M PRN Opioid Reversal Non-Formulary Medication 81 mg 05/26/23 09:00 Aspirin Ec PO DAILY MAME Intake and Output 05/24/23 05/25/23 05/25/23 22:59 06:59 14:59 Other: Weight 70.307 kg Patient Weight 05/26/23 06:59 Weight 70.307 kg 05/25/23 11:16 05/25/23 11:16
[2023-05-25] MEDS: SODIUM CHLORIDE 0.9% 1,000 ML IV SCH (13:22)
[2023-05-25] MEDS ORDERED: WARFARIN 2.5 MG TAB PO SCH (14:45)
--- NOTE | 2023-05-25 16:08 | P.EPPROC ---
- EP Procedure Note Electrophysiology Procedure Note: Patient has a [employer] medical biventricular ICD This was interrogated today Atrial pacing threshold 0.75 V at 0.5 ms, P waves 2.2 mV and pacing impedance 360 ms Patient is in sinus rhythm. He is on 100 mg of amiodarone by mouth daily RV threshold 1.25 V at 0.5 ms, R waves 10.7 mV and pacing impedance 350 ohms LV pacing threshold 1.4 V at 0.5 ms the pacing impedance of 840 ohms HV impedance 43 ohms Pacing mode DDDR 50-110 Best LV threshold was distal tip to mid 2, 1.4 V at 0.5 ms All other thresholds were very high Phrenic nerve stimulation using M3-RV coil Impedance monitoring status: within normal range Changes made LV offset increased to 45 ms LV first Synch AV turned on Plan watch Bi V pacing percentage
--- NOTE | 2023-05-25 18:35 | CT ---
EXAMINATION TYPE: CT chest wo con DATE OF EXAM: 05/25/2023 COMPARISON: 10/23/2016 HISTORY: COPD pleural effusion CT DLP: 345.[address] of the chest was performed with lung and mediastinal window settings submitted. The la ck of contrast limits evaluation of the vascular, mediastinal and parenchymal structures including th e upper abdomen. LUNGS: There are small bilateral pleural effusions. There is loculated left apical pleural effusion m easuring approximately 4.2 cm in thickness. There are coarse infiltrates throughout both lung trevino which may reflect interstitial edema with underlying congestive failure. Atypical pneumonia is not ex cluded. MEDIASTINUM/CHARLENE: Thoracic aorta is of normal caliber with limited evaluation given lack of contrast . The heart is moderately median sternotomy changes noted. Changes of CABG. No evidence for mediasti nal mass. No lymph nodes greater than 1cm. UPPER ABDOMEN: Layering gallstones noted. Left renal cyst. Granulomas of the spleen. OTHER: No significant other abnormality. IMPRESSION: 1. There are coarse infiltrates throughout both lung trevino which may reflect interstitial edema wit h underlying congestive failure. Atypical pneumonia is not excluded. 2. Bilateral pleural effusions with loculated components seen within the left apical region.
[2023-05-25] MEDS: IPRATROPIUM-ALBUTEROL 3 ML NEB INHALATION SCH (19:52)
[2023-05-25] MEDS: BUDESONIDE 0.5 MG/2 ML NEBU INHALATION SCH (19:52)
--- NOTE | 2023-05-26 02:16 | HP ---
HISTORY AND PHYSICAL HISTORY OF PRESENT ILLNESS: This 87-year-old white male came to the emergency room, concern for red legs. He has been in a ship for a week. He was noncompliant with some of his breathing treatments and some of his medications. He came to the hospital despite doubling up his Lasix and his leg swelling and redness worsened. History of some petechiae over the lower legs. HOME MEDICINES: List reviewed. ALLERGIES: List reviewed. FAMILY HISTORY: Reviewed. ALLERGIES: Negative. FAMILY HISTORY: Mother healthy. Brother with cancer. Father with cancer. REVIEW OF SYSTEMS: GENERAL: Positive for orthopnea, PND, dyspnea with exertion. INTEGUMENT: Leg redness and swelling, bruising in extremities. A 14-point review of system, skinny, disheveled. PHYSICAL EXAMINATION: CARDIOVASCULAR: Irregular rate and rhythm. LUNGS: Scattered rhonchi and wheeze. GI: Soft. HEMATOLOGY: Negative for Homans. PSYCH: Fair mood and affect. NEUROLOGIC: Cranial nerves intact. PSYCH: Fair mood and affect. EKG shows paced rhythm, wide QRS. ASSESSMENT: Cellulitis of the legs, CHF, COPD, acute on chronic anemia, acute on chronic anemia. IV antibiotics will be given. Prognosis guarded. Continue current treatments. Breathing treatments, IV Lasix, IV antibiotics. Otherwise prognosis guarded. MMODL / IJN: [id number] /
[2023-05-26] MEDS: LEVOTHYROXINE 100 MCG TAB PO SCH (06:30)
[2023-05-26] MEDS: FUROSEMIDE 10 MG/ML 4 ML VIAL IV SCH ×3 (06:30→20:23)
[2023-05-26] MEDS: MULTIVITAMINS, THERA 1 EACH TAB PO SCH (08:05)
[2023-05-26] MEDS: allopurinoL 300 MG TAB PO SCH (08:05)
[2023-05-26] MEDS: FERROUS SULFATE 325 MG TAB PO SCH (08:05)
[2023-05-26] MEDS: ASPIRIN 81 MG PO SCH (08:05)
[2023-05-26] MEDS: IPRATROPIUM-ALBUTEROL 3 ML NEB INHALATION SCH ×3 (08:30→19:37)
[2023-05-26] MEDS: BUDESONIDE 0.5 MG/2 ML NEBU INHALATION SCH ×2 (08:30→19:37)
[2023-05-26] MEDS: AMIODARONE 100 MG TAB PO SCH (09:56)
--- NOTE | 2023-05-26 10:01 | P.PN ---
Subjective HISTORY OF PRESENT ILLNESS: This is a 87-year-old male with a past medical history significant for coronary artery disease with previous CABG, ischemic cardiomyopathy with previous AICD implantation, congestive heart failure, hypertension, hyperlipidemia, paroxysmal atrial fibrillation, and chronic kidney disease. Patient follows in the office with Dr. Carrera. We have been asked to see the patient in consultation for " cardiac care". Patient examined at the bedside in the emergency room. Patient was seen today by his primary stationary equipment mechanic for worsening shortness of breath and lower extremity edema. The patient was directed to come to the emergency room. The patient currently denies any chest pain or pressure. He does report mild shortness of breath. Denies dizziness or lightheadedness. The patient is being admitted to the hospital secondary to bilateral lower extremity cellulitis. * EKG reveals ventricular paced rhythm * Chest xray pulmonary fibrotic changes with superimposed cardiomegaly, pulmonary vascular congestion and bilateral pleural effusions. * Laboratory data: WBC 7.8. Hemoglobin 12.6. Platelet count 244. INR 3.9. Sodium 141. Potassium 4.6. BUN 34. Creatinine 3.42. ProBNP 73,500. * Current home cardiac medications include amiodarone 100 mg daily, aspirin 81 mg daily, Lasix 80 mg daily, warfarin 1.25 mg on Monday and Monday and 2.5 mg on Monday and Monday. * Most recent echocardiogram obtained in the office December 2022 revealed ejection fraction 25%, moderate to severe MR, moderate AR, moderate TR * Patient underwent Lexiscan stress test in August 2021 which was negative for ischemia 05/26/2023 Patient examined this morning. Patient is sitting up in the chair. Patient denies chest pain or pressure. He currently denies shortness of breath. He remains on IV Lasix. Patient states he has been urinating frequently. He con tinues to have lower extremity edema and erythema. Kidney function from this morning is pending. PHYSICAL EXAM: VITAL SIGNS: Reviewed. GENERAL: Well-developed in no acute distress. HEENT: Head is normocephalic. Pupils are equal, round. Sclerae anicteric. Mucous membranes of the mouth are moist. Neck supple. No JVD or thyromegaly LUNGS: Respirations even and unlabored. Lungs diminished with bibasilar crackles HEART: Regular rate and rhythm. S1 and S2 heard. Systolic murmur noted. ABDOMEN: Soft. Nondistended. Nontender. EXTREMITIES: Normal range of motion. No clubbing or cyanosis. Peripheral pulses intact. 2+ bilateral lower extremity edema with erythema noted. U lceration noted to lateral aspect of right lower extremity. NEUROLOGIC: Awake and alert. Oriented x 3. ASSESSMENT: Bilateral lower extremity cellulitis Right lower extremity wound Acute on chronic heart failure with reduced EF, 25%, proBNP 73,500 Ischemic cardiomyopathy with previous AICD implantation Coronary artery disease with previous CABG Chronic kidney disease Hypertension Hyperlipidemia Paroxysmal atrial fibrillation Supratherapeutic INR, INR was 3.9 on admission PLAN: No need to repeat echo as this was performed in December 2022 at the office Continue current cardiac medications Continue IV Lasix 40 mg every 8 hours Daily weights, accurate I&O, and monitor kidney function Management of lower extremity cellulitis per primary medicine Coumadin remains on hold secondary to elevated INR. Repeat INR this morning. Further recommendations pending patient's course Nurse practitioner note has been reviewed by physician. Signing provider agrees with the documented findings, assessment, and plan of care. Objective - Vital Signs Vital signs: Vital Signs Temp 97.8 F 05/26/23 07:17 Pulse 86 05/26/23 08:47 Resp 17 05/26/23 07:17 BP 117/68 05/26/23 07:17 Pulse Ox 97 05/26/23 08:35 FiO2 Intake & Output 05/25/23 05/26/23 05/26/23 18:59 06:59 18:59 Weight 50.5 kg Other: # Voids 3 # Bowel Movements 1 - Labs CBC & Chem 7: 05/25/23 11:16 05/25/23 11:16 Labs: Abnormal Lab Results - Last 24 Hours (Table) 05/25/23 05/25/23 05/25/23 Range/Units 11:16 11:16 11:16 Hgb 12.6 L (13.0-17.5) gm/dL MCHC 30.6 L (31.0-37.0) g/dL RDW 16.0 H (11.5-15.5) % PT 38.0 H (9.0-12.0) sec INR 3.9 H (<1.2) APTT 40.6 H (22.0-30.0) sec BUN 84 H (9-20) mg/dL Creatinine 3.42 H (0.66-1.25) mg/dL Glucose 108 H (74-99) mg/dL AST 14 L (17-59) U/L Alkaline Phosphatase 141 H (38-126) U/L Total Protein 6.2 L (6.3-8.2) g/dL
[2023-05-26 11:08] LABS: Basophils # (A) 0.06 X 10*3/uL (0.00-0.10); Basophils % (A) 0.7 %; Eosinophils # (A) 0.15 X 10*3/uL (0.04-0.35); Eosinophils % (A) 1.8 %; HCT 39.6 % (39.6-50.0); HGB 11.5 d/dL (13.0-17.0); Lymphocytes # (A) 1.18 X 10*3/uL (0.90-5.00); Lymphocytes % (A) 14.4 %; MCH 25.9 pg (27.0-32.0); MCV 89.2 FL (80.0-97.0); Mean Platelet Volume 10.9 FL (9.5-12.2); Monocytes % (A) 6.1 %; NRBC Per 100 WBC 0 X 10*3/uL (0.00-0.01); Neutrophils # (A) 6.27 X 10*3/uL (1.80-7.70); Neutrophils % (A) 76.8 %; Platelet Count 284 X 10*3/uL (140-440); RBC 4.44 X 10*6/uL (4.40-5.60); RDW 15.9 % (11.5-14.5); WBC 8.18 X 10*3/uL (4.50-10.00)
--- NOTE | 2023-05-26 11:11 | P.NPCON ---
History of Present Illness - Reason for Consult acute renal failure - History of Present Illness Patient is an 87-year-old male who was admitted to the hospital with increased lower extremity swelling. He also complains of increased weakness and shortness of breath over the past few weeks. Patient denies any urinary symptoms. Patient has history of CK D stage IV with baseline creatinine around 2.7 to 3.1 mg/dL. Patient has history of cardiomyopathy with EF less than 20%. Serum creatinine was 3.42 mg/dL on admission. We do not have any labs from today yet. Patient has been voiding. Blood pressure has been on the lower side with systolic in the 90s. Patient is currently being diuresed and maintained on Lasix 40 mg IV every 8 hours. Review of Systems As per HPI. Past Medical History Past Medical History: Atrial Fibrillation, Coronary Artery Disease (CAD), Cancer, Heart Failure, COPD, Diabetes Mellitus, Hypertension, Liver Disease, Myocardial Infarction (MD), Renal Disease, Thyroid Disorder Additional Past Medical History / Comment(s): See Dr Carrera's H&P,mantle cell lymphoma treated 9-10 years ago with chemo, hx pleural effusion L side with thoracentesis x2, sepsis, urinary retention, hepatitis in 1950 type unknown, diff swallowing, decreased kidney function Last Myocardial Infarction Date:: 1998 History of Any Multi-Drug Resistant Organisms: None Reported Past Surgical History: AICD, Coronary Bypass/CABG, Heart Catheterization, Pacemaker Additional Past Surgical History / Comment(s): PTCA, 1998 4 vessel CABG, cardioversion, L thoracentesis x2, colonoscopy, bone marrow bx, bilateral ca taract removal, mediport. Past Anesthesia/Blood Transfusion Reactions: No Reported Reaction Type of Cardiac Device: Permanent Pacemaker, AICD Device Placement Date:: 2004 implant/2017 gen change Past Psychological History: No Psychological Hx Reported Additional Psychological History / Comment(s): Lives in the family home with his . 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 Denies any recent travels. No recent animal exposures. Uses cane to ambulate. Pt drives. Smoking Status: Former smoker Past Alcohol Use History: None Reported Additional Past Alcohol Use History / Comment(s): Pt smoked from about 1955 u ntil 1994. 1 ppd Past Drug Use History: None Reported - Past Family History Mother Family Medical History: No Reported History Additional Family Medical History / Comment(s): Mother was healthy and lived to be 86yrs old. Brother(s) Family Medical History: Cancer Father Family Medical History: Cancer Additional Family Medical History / Comment(s): Father had bone cancer. He also had "heart problems." He at the age of 82 yrs. Medications and Allergies Home Medications Medication Instructions Recorded Confirmed Type Aspirin EC [Ecotrin Low Dose] 81 mg PO DAILY 01/31/15 05/25/23 History Levothyroxine Sodium [Synthroid] 100 mcg PO DAILY 06/22/17 05/25/23 History Amiodarone [Cordarone] 100 mg PO DAILY #90 tab 05/29/18 05/25/23 Rx Warfarin [Coumadin] 1.25 mg PO TUSA 01/28/22 05/25/23 History Warfarin [Coumadin] 2.5 mg PO SUMOWETHFR 01/28/22 05/25/23 History allopurinoL [Zyloprim] 300 mg PO DAILY 01/28/22 05/25/23 History calcitrioL [Calcitriol] 0.25 mcg PO COUGHLIN 01/28/22 05/25/23 History Furosemide [Lasix] 80 mg PO DAILY 02/19/22 05/25/23 History Ferrous Sulfate [Feosol] 325 mg PO DAILY 05/25/23 05/25/23 History Ipratropium-Albuterol Nebulize 3 ml INHALATION RT-TID 05/25/23 05/25/23 History [Duoneb 0.5 mg-3 mg/3 ml Soln] Multivitamins, Thera [Multivitamin 1 tab PO DAILY 05/25/23 05/25/23 History (formulary)] Allergies Allergy/AdvReac Type Severity Reaction Status Date / Time No Known Allergies Allergy Verified 05/25/23 11:32 Physical Exam Vitals: Vital Signs Temp Pulse Pulse Resp BP BP BP 05/26/23 08:47 86 05/26/23 08:35 05/26/23 08:33 84 05/26/23 07:17 97.8 F 86 17 117/68 05/26/23 01:40 97.7 F 85 20 109/64 05/25/23 19:54 90 05/25/23 19:45 97.8 F 92 20 106/84 05/25/23 18:24 97.7 F 90 18 107/69 05/25/23 17:20 90 22 113/73 05/25/23 13:14 89 20 126/61 Pulse Ox 05/26/23 08:47 05/26/23 08:35 97 05/26/23 08:33 05/26/23 07:17 97 05/26/23 01:40 98 05/25/23 19:54 05/25/23 19:45 92 L 05/25/23 18:24 92 L 05/25/23 17:20 94 L 05/25/23 13:14 Intake and Output 05/25/23 05/26/23 05/26/23 22:59 06:59 14:59 Output Total 245 Balance -245 Output: Urine 50 Post Void Residual 195 Other: # Voids 3 # Bowel Movements 1 Weight 50.5 kg Patient is awake, comfortable, no acute distress Examination of the heart S1 and S2 Examination of the lungs bilateral breath sounds are heard Abdomen is soft nontender Examination of lower extremities shows bilateral edema about 3+ with some erythema noted worse on the left leg. MACHINE [employer] exam grossly intact Results - Lab Results Most recent lab results Calcium 9.1 mg/dL (8.4-10.2) 05/25/23 11:16 05/25/23 11:16 05/25/23 11:16 Assessment and Plan Assessment: 1. Acute kidney injury nonoliguric mostly cardiorenal. No urine retention noted. UA is completely benign 2. Cardiomyopathy with EF 25%. Ischemic cardiomyopathy 3. Volume overload 4. Paroxysmal A. fib 5. Chronic kidney disease NKF stage IV with baseline creatinine around 2.7-3.1 mg/dL secondary to nephrosclerosis 6. CK D mineral bone disorder maintained on calcitriol. Calcium is 9.1. Plan: Continue to diurese patient. Continue with current dose of IV Lasix Continue with calcitriol Continue with IV antibiotics for cellulitis. Repeat labs in a.m. Thank you for the consultation. We will continue to follow the patient with you during his hospitalization.
[2023-05-26 12:30] LABS: INR 4.3 (<1.2)
[2023-05-26 13:17] LABS: ALT 9 U/L (10-49); AST 11 U/L (14-35); Albumin 3.6 d/dL (3.8-4.9); Albumin/Globulin Ratio 1.64 Ratio (1.60-3.17); Alkaline Phosphatase 130 U/L (41-126); BUN/Creat Ratio 22.47 Ratio (12.00-20.00); Blood Urea Nitrogen 76.4 mg/dL (9.0-27.0); Calcium 9.2 mg/dL (8.7-10.3); Carbon Dioxide 22.7 mmol/L (21.6-31.8); Chloride 104 mmol/L (96-109); Globulin 2.2 d/dL (1.6-3.3); Glucose 99 mg/dL (70-110); Potassium 4.2 mmol/L (3.5-5.5); Sodium 143 mmol/L (135-145); Total Bilirubin 0.5 mg/dL (0.3-1.2); Total Protein 5.8 d/dL (6.2-8.2)
[2023-05-26] MEDS: SODIUM CHLORIDE 0.9% 1,000 ML IV SCH (13:45)
[2023-05-26] MEDS ORDERED: WARFARIN 0.5 MG TAB PO ONE (18:00)
[2023-05-26] MEDS: ACETAMINOPHEN TAB 325 MG TAB PO PRN (18:37)
--- NOTE | 2023-05-27 02:29 | PN ---
PROGRESS NOTE SUBJECTIVE: This is an 87-year-old white male who remains on cefazolin for leg infection, Lasix IV q.8 hours for CHF, Synthroid 100 mcg daily. Home oxygen, DuoNeb updrafts q.i.d., Pulmicort updrafts b.i.d. He is on Cordarone for atrial fibrillation, zyloprim for gout, has persistent leg swelling and redness. OBJECTIVE: VITAL SIGNS: Temperature 97.5, pulse 82, blood pressure is 96 to 114 over 60 to 67, and 98% on 4 L. CARDIOVASCULAR: S1, S2. LUNGS: Decreased breath sounds x4. HEMATOLOGY: 2 to 3+ edema with redness and swelling of lower extremities. X-ray shows some possible infiltrate. Chronic kidney disease stage 4, baseline 27 to 3.1, cardiomyopathy, ejection fraction 20 , he remains on Lasix. He has history of atrial fibrillation, coronary artery disease, heart failure, COPD, diabetes mellitus, hypertension, liver disease, myocardial infarction, renal disease, thyroid disorder. Continue to diurese patient. Continue with IV antibiotics. Continue with IV Lasix, calcitriol, IV antibiotics. Repeat labs in the morning. Prognosis guarded. MMODL / IJN: [id number] /
[2023-05-27] MEDS: FUROSEMIDE 10 MG/ML 4 ML VIAL IV SCH ×2 (05:32→20:51)
[2023-05-27] MEDS: LEVOTHYROXINE 100 MCG TAB PO SCH (05:32)
[2023-05-27] MEDS: BUDESONIDE 0.5 MG/2 ML NEBU INHALATION SCH ×2 (07:56→20:59)
[2023-05-27] MEDS: IPRATROPIUM-ALBUTEROL 3 ML NEB INHALATION SCH ×3 (07:56→20:59)
[2023-05-27 08:35] LABS: Basophils % (A) 0 %; Eosinophils # (A) 0.3 k/uL (0-0.7); Eosinophils % (A) 3 %; HCT 40.6 % (39.0-53.0); HGB 12.1 gm/dL (13.0-17.5); Hypochromasia Marked; Lymphocytes # (A) 1.1 k/uL (1.0-4.8); Lymphocytes % (A) 13 %; MCH 26.6 pg (25.0-35.0); MCHC 29.9 g/dL (31.0-37.0); MCV 89.1 fL (80.0-100.0); Mean Platelet Volume 8.3; Monocytes # (A) 0.6 k/uL (0-1.0); Monocytes % (A) 7 %; Neutrophils # (A) 6.5 k/uL (1.3-7.7); Neutrophils % (A) 76 %; Platelet Count 239 k/uL (150-450); RBC 4.55 m/uL (4.30-5.90); WBC 8.6 k/uL (3.8-10.6)
[2023-05-27 08:38] LABS: INR 3.5 (<1.2); Prothrombin Time 34.3 sec (9.0-12.0)
--- NOTE | 2023-05-27 08:53 | P.PN ---
Subjective Progress Note Date: 05/27/23 Principal diagnosis: Heart failure The patient is a pleasant 87-year-old gentleman with CAD and status post CABG and ischemic cardiomyopathy status post AICD as well as permanent atrial fibrillation as well as hypertension and dyslipidemia was admitted to the hospital with bilateral lower extremity edema related to heart failure and also bilateral lower extremity cellulitis May [id number] The patient was seen and evaluated this morning. He continues to have bilateral lower extremity edema. Currently he is on Lasix 40 mg IV 3 times a day. The creatinine is elevated but remains a stable. No symptoms of chest pain or chest discomfort or shortness of breath. From a cardiovascular standpoint of view, I would continue the current medical regimen including the current dose of Lasix with continue monitoring the kidney function and electrolytes and follow-up with the patient The examination is remarkable for severe bilateral lower extremity is edema. Assessment Heart failure exacerbation secondary to heart failure with reduced ejection fraction CAD and status post CABG Ischemic cardiomyopathy Permanent atrial fibrillation Multiple comorbid conditions Chronic renal failure Lower extremity cellulitis Plan Continue the current medical regimen Continue the current dose of Lasix IV Follow-up with the patient Objective - Vital Signs Vital signs: Vital Signs Temp 98.0 F 05/27/23 07:03 Pulse 84 05/27/23 08:13 Resp 17 05/27/23 07:20 BP 109/73 05/27/23 07:03 Pulse Ox 97 05/27/23 07:58 FiO2 Intake & Output 05/26/23 05/27/23 05/27/23 18:59 06:59 18:59 Intake Total 290 Output Total 345 675 100 Balance -345 -385 -100 Weight 68.039 kg 69.6 kg Intake: Intake, IV Titration 50 Amount ceFAZolin 1,000 mg In 50 Sodium Chloride 0.9% 50 ml @ 100 mls/hr IVPB Q12HR [facility] Rx#:[id number] Oral 240 Output: Urine 150 675 100 Post Void Residual 195 Other: Voiding Method Urinal Urinal # Voids 0 1 - Labs CBC & Chem 7: 05/27/23 07:39 05/26/23 07:40 Labs: Abnormal Lab Results - Last 24 Hours (Table) 05/26/23 05/26/23 05/26/23 Range/Units 07:40 07:40 11:53 Hgb 11.5 L (13.0-17.0) d/dL MCH 25.9 L (27.0-32.0) pg MCHC 29.0 L (32.0-37.0) d/dL RDW 15.9 H (11.5-14.5) % PT 42.0 H (9.0-12.0) sec INR 4.3 H (<1.2) Anion Gap 16.30 H (4.00-12.00) mmol/L BUN 76.4 H (9.0-27.0) mg/dL Creatinine 3.4 H (0.6-1.5) mg/dL Est GFR (CKD-EPI) 17 L (>=60) BUN/Creatinine Ratio 22.47 H (12.00-20.00) Ratio AST 11 L (14-35) U/L ALT 9 L (10-49) U/L Alkaline Phosphatase 130 H (41-126) U/L Total Protein 5.8 L (6.2-8.2) d/dL Albumin 3.6 L (3.8-4.9) d/dL 05/27/23 05/27/23 Range/Units 07:39 07:39 Hgb 12.1 L (13.0-17.0) d/dL MCH (27.0-32.0) pg MCHC 29.9 L (32.0-37.0) d/dL RDW 16.0 H (11.5-14.5) % PT 34.3 H (9.0-12.0) sec INR 3.5 H (<1.2) Anion Gap (4.00-12.00) mmol/L BUN (9.0-27.0) mg/dL Creatinine (0.6-1.5) mg/dL Est GFR (CKD-EPI) (>=60) BUN/Creatinine Ratio (12.00-20.00) Ratio AST (14-35) U/L ALT (10-49) U/L Alkaline Phosphatase (41-126) U/L Total Protein (6.2-8.2) d/dL Albumin (3.8-4.9) d/dL Microbiology - Last 24 Hours (Table) 05/25/23 11:16 Blood Culture - Preliminary Blood 05/25/23 11:16 Blood Culture - Preliminary Blood
[2023-05-27 09:05] LABS: ALT 10 U/L (4-49); AST 15 U/L (17-59); African American GFR (CKD) 17 (>60 ml/min/1.73 sqM); Albumin 3.4 g/dL (3.5-5.0); Albumin/Globulin Ratio 1.3; Alkaline Phosphatase 139 U/L (38-126); Anion Gap 12 mmol/L; Blood Urea Nitrogen 90 mg/dL (9-20); Calcium 8.9 mg/dL (8.4-10.2); Carbon Dioxide 24 mmol/L (22-30); Chloride 103 mmol/L (98-107); Globulin 2.7 g/dL; Glucose 110 mg/dL (74-99); Non-African American GFR(CKD) 15 (>60 ml/min/1.73 sqM); Potassium 4.7 mmol/L (3.5-5.1); Sodium 139 mmol/L (137-145); Total Bilirubin 0.6 mg/dL (0.2-1.3); Total Protein 6.1 g/dL (6.3-8.2)
[2023-05-27] MEDS: MULTIVITAMINS, THERA 1 EACH TAB PO SCH (09:14)
[2023-05-27] MEDS: FERROUS SULFATE 325 MG TAB PO SCH (09:14)
[2023-05-27] MEDS: allopurinoL 300 MG TAB PO SCH (09:15)
[2023-05-27] MEDS: TAMSULOSIN 0.4 MG CAP.ER.24H PO SCH (09:15)
[2023-05-27] MEDS: ASPIRIN 81 MG PO SCH (09:15)
[2023-05-27] MEDS: AMIODARONE 100 MG TAB PO SCH (09:15)
--- NOTE | 2023-05-27 12:47 | P.PN ---
Subjective Patient is seen in follow-up for acute kidney injury on chronic kidney disease. Renal function fairly stable. Urine output documented as about 1 L in the last 24 hours. On IV Lasix. Hemodynamically stable. On 4 L nasal cannula. Family present at bedside. Vital signs are stable. General: No acute distress. HEENT: Head exam is unremarkable. On nasal cannula. LUNGS: Scattered rhonchi. HEART: Rate and Rhythm are regular. ABDOMEN: Nontender. EXTREMITITES: Lower extremity erythema noted. 2+ edema. Objective - Vital Signs Vital signs: Vital Signs Temp 98.0 F 05/27/23 07:03 Pulse 84 05/27/23 08:13 Resp 17 05/27/23 07:20 BP 109/73 05/27/23 07:03 Pulse Ox 97 05/27/23 07:58 FiO2 Intake & Output 05/26/23 05/27/23 05/27/23 18:59 06:59 18:59 Intake Total 290 Output Total 345 675 100 Balance -345 -385 -100 Weight 68.039 kg 69.6 kg Intake: Intake, IV Titration 50 Amount ceFAZolin 1,000 mg In 50 Sodium Chloride 0.9% 50 ml @ 100 mls/hr IVPB Q12HR [facility] Rx#:[id number] Oral 240 Output: Urine 150 675 100 Post Void Residual 195 Other: Voiding Method Urinal Urinal # Voids 0 1 - Labs CBC & Chem 7: 05/27/23 07:39 05/27/23 07:39 Labs: Abnormal Lab Results - Last 24 Hours (Table) 05/26/23 05/27/23 05/27/23 Range/Units 07:40 07:39 07:39 Hgb 12.1 L (13.0-17.5) gm/dL MCHC 29.9 L (31.0-37.0) g/dL RDW 16.0 H (11.5-15.5) % PT 34.3 H (9.0-12.0) sec INR 3.5 H (<1.2) Anion Gap 16.30 H (4.00-12.00) mmol/L BUN 76.4 H (9.0-27.0) mg/dL Creatinine 3.4 H (0.6-1.5) mg/dL Est GFR (CKD-EPI) 17 L (>=60) BUN/Creatinine Ratio 22.47 H (12.00-20.00) Ratio Glucose (74-99) mg/dL AST 11 L (14-35) U/L ALT 9 L (10-49) U/L Alkaline Phosphatase 130 H (41-126) U/L Total Protein 5.8 L (6.2-8.2) d/dL Albumin 3.6 L (3.8-4.9) d/dL 05/27/23 Range/Units 07:39 Hgb (13.0-17.5) gm/dL MCHC (31.0-37.0) g/dL RDW (11.5-15.5) % PT (9.0-12.0) sec INR (<1.2) Anion Gap (4.00-12.00) mmol/L BUN 90 H (9.0-27.0) mg/dL Creatinine 3.55 H (0.6-1.5) mg/dL Est GFR (CKD-EPI) (>=60) BUN/Creatinine Ratio (12.00-20.00) Ratio Glucose 110 H (74-99) mg/dL AST 15 L (14-35) U/L ALT (10-49) U/L Alkaline Phosphatase 139 H (41-126) U/L Total Protein 6.1 L (6.2-8.2) d/dL Albumin 3.4 L (3.8-4.9) d/dL Microbiology - Last 24 Hours (Table) 05/25/23 11:16 Blood Culture - Preliminary Blood 05/25/23 11:16 Blood Culture - Preliminary Blood Assessment and Plan Plan: Assessment: 1. Acute kidney injury secondary to ATN secondary to cardiorenal syndrome. Renal function stable. Creatinine 3.55 today. No hydronephrosis noted on CT done in March 2023. 2. Chronic kidney disease stage IV secondary to nephrosclerosis with baseline creatinine in the range of 2.6-3. 3. Acute on chronic systolic CHF with ejection fraction of 25% with moderate to severe mitral regurgitation, moderate aortic and tricuspid regurgitation. 4. Volume overload. 5. Chronic kidney disease mineral bone disease maintained on calcitriol. 6. Lower extremity cellulitis on antibiotics. Plan: Change Lasix to 60 mg IV twice daily. Add metolazone 5 mg once daily. Low-salt diet and 1200 mL fluid restriction. Check UA. Continue to monitor bladder scans to make sure no urinary retention. Avoid nephrotoxins. Continue to monitor renal function and urine output. Continue to assess daily for need for renal replacement therapy.
[2023-05-27] MEDS: metOLazone 5 MG TAB PO SCH (14:19)
[2023-05-27] MEDS ORDERED: WARFARIN 2.5 MG TAB PO SCH (14:34)
[2023-05-27] MEDS: SODIUM CHLORIDE 0.9% 1,000 ML IV SCH (17:57)
[2023-05-27] MEDS ORDERED: WARFARIN 0.5 MG TAB PO ONE (18:00)
[2023-05-27 21:18] LABS: Appearance,Urine Clear (Clear); Bilirubin,Urine Negative (Negative); Blood,Urine Negative (Negative); Color,Urine Yellow; Glucose,Urine (UA) Negative (Negative); Ketones,Urine Negative (Negative); Leukocyte Esterase,Urine Negative (Negative); Nitrite,Urine Negative (Negative); Protein,Urine Negative (Negative); Specific Gravity,Urine 1.014 (1.001-1.035); Urobilinogen,Urine <2.0 mg/dL (<2.0)
--- NOTE | 2023-05-27 21:54 | P.CONS ---
History of Present Illness - Reason for Consult Consult date: 05/27/23 Cellulitis leg Requesting physician: Quentin Pedraza - Chief Complaint Shortness of breath and leg swelling x days - History of Present Illness Patient is a 87-year-old male with a past medical history significant for atrial fibrillation coronary artery disease COPD diabetes mellitus heart failure liver disease patient presenting to the hospital 2 days ago for ev aluation of red legs apparently the patient symptom has been going on for a week before presentation to the hospital, patient complaining of discomfort and itching to bilateral lower extremity especially the right leg did have significant swelling and some weeping edema discomfort has been described as dull aching at times sharp 5-6 out of 10 no radiation patient denies high-grade fever or any chills patient denies having any headache or URI symptoms no chest pain did have some shortness of breath minimal dry cough no nausea no vomiting no abdominal pain or any diarrhea with the symptoms the patient was evaluated on presentation to the hospital patient was afebrile and no fever has been recorded subsequently patient did have significant tachycardia hypertension mildly hypoxic requiring supplemental oxygen patient did have a normal white count INR was elevated BUN/creatinine is elevated levels of the normal urine has been negative blood cultures obtained currently pending patient is being treated with the cefazolin infectious disease was consulted last night concerning for cellulitis Review of Systems Positive point and negatives has been mentioned in the HPI, complete review of systems was performed and all other systems are negative Past Medical History Past Medical History: Atrial Fibrillation, Coronary Artery Disease (CAD), Cancer, Heart Failure, COPD, Diabetes Mellitus, Hypertension, Liver Disease, Myocardial Infarction (CA), Renal Disease, Thyroid Disorder Additional Past Medical History / Comment(s): See Dr Carrera's H&P,mantle cell lymphoma treated 9-10 years ago with chemo, hx pleural effusion L side with thoracentesis x2, sepsis, urinary retention, hepatitis in 1950 type unknown, diff swallowing, decreased kidney function Last Myocardial Infarction Date:: 1998 History of Any Multi-Drug Resistant Organisms: None Reported Past Surgical History: AICD, Coronary Bypass/CABG, Heart Catheterization, Pacemaker Additional Past Surgical History / Comment(s): PTCA, 1998 4 vessel CABG, cardioversion, L thoracentesis x2, colonoscopy, bone marrow bx, bilateral cataract removal, mediport. Past Anesthesia/Blood Transfusion Reactions: No Reported Reaction Type of Cardiac Device: Permanent Pacemaker, AICD Device Placement Date:: 2004 implant/2018 gen change Past Psychological History: No Psychological Hx Reported Additional Psychological History / Comment(s): Lives in the family home with his . 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 Denies any recent travels. No recent animal exposures. Uses cane to ambulate. Pt drives. Smoking Status: Former smoker Past Alcohol Use History: None Reported Additional Past Alcohol Use History / Comment(s): Pt smoked from about 1955 until 1994. 1 ppd Past Drug Use History: None Reported - Past Family History Mother Family Medical History: No Reported History Additional Family Medical History / Comment(s): Mother was healthy and lived to be 86yrs old. Brother(s) Family Medical History: Cancer Father Family Medical History: Cancer Additional Family Medical History / Comment(s): Father had bone cancer. He also had "heart problems." He at the age of 82 yrs. Medications and Allergies Home Medications Medication Instructions Recorded Confirmed Type Aspirin EC [Ecotrin Low Dose] 81 mg PO DAILY 01/31/15 05/25/23 History Levothyroxine Sodium [Synthroid] 100 mcg PO DAILY 06/22/17 05/25/23 History Amiodarone [Cordarone] 100 mg PO DAILY #90 tab 05/29/18 05/25/23 Rx Warfarin [Coumadin] 1.25 mg PO TUSA 01/28/22 05/25/23 History Warfarin [Coumadin] 2.5 mg PO SUMOWETHFR 01/28/22 05/25/23 History allopurinoL [Zyloprim] 300 mg PO DAILY 01/28/22 05/25/23 History calcitrioL [Calcitriol] 0.25 mcg PO COUGHLIN 01/28/22 05/25/23 History Furosemide [Lasix] 80 mg PO DAILY 02/19/22 05/25/23 History Ferrous Sulfate [Iron (65 MG 325 mg PO DAILY 05/25/23 05/25/23 History Elemental)] Ipratropium-Albuterol Nebulize 3 ml INHALATION RT-TID 05/25/23 05/25/23 History [Duoneb 0.5 mg-3 mg/3 ml Soln] Multivitamins, Thera [Multivitamin 1 tab PO DAILY 05/25/23 05/25/23 History (formulary)] Budesonide [Pulmicort] 0.5 mg INHALATION RT-BID 90 Days 06/06/23 Rx #180 ml Cephalexin [Keflex] 500 mg PO BID 10 Days #20 cap 06/06/23 Rx Midodrine [ProAmatine] 10 mg PO AC-TID 30 Days #90 tab 06/06/23 Rx Tamsulosin [Flomax] 0.4 mg PO PC-BRKFST 30 Days #30 cap 06/06/23 Rx Torsemide [Demadex] 40 mg PO DAILY 90 Days #90 tab 06/06/23 Rx Allergies Allergy/AdvReac Type Severity Reaction Status Date / Time No Known Allergies Allergy Verified 05/25/23 11:32 Physical Exam Vitals: Vital Signs Temp Pulse Pulse Resp BP Pulse Ox 05/27/23 08:13 84 05/27/23 07:58 82 97 05/27/23 07:20 84 17 05/27/23 07:03 98.0 F 87 21 109/73 100 05/27/23 01:28 97.4 F L 84 17 101/64 100 05/26/23 19:47 86 05/26/23 19:37 86 05/26/23 19:04 97.5 F L 89 20 114/67 98 05/26/23 14:00 97.4 F L 90 16 96/60 99 05/26/23 11:56 82 05/26/23 11:46 80 Intake and Output 05/26/23 05/27/23 05/27/23 22:59 06:59 14:59 Intake Total 50 240 Output Total 225 550 100 Balance -175 -310 -100 Intake: Intake, IV Titration 50 Amount ceFAZolin 1,000 mg In 50 Sodium Chloride 0.9% 50 ml @ 100 mls/hr IVPB Q12HR [facility] Rx#:[id number] Oral 240 Output: Urine 225 550 100 Other: Voiding Method Urinal # Voids 0 1 Weight 69.6 kg GENERAL DESCRIPTION: Elderly male lying in bed, no distress. No tachypnea or accessory muscle of respiration use. HEENT: Shows Pallor , no scleral icterus. Oral mucous membrane is dry. NECK: Trachea central, no thyromegaly. LUNGS: Unlabored breathing. Decreased breath sounds at the base HEART: S1, S2, regular rate and rhythm. No loud murmur ABDOMEN: Soft, no tenderness , guarding or rigidity, no organomegaly EXTREMITIES: Bilateral extremity swelling some superficial ulceration and redness no foul-smelling drainage SKIN: No rash, no masses palpable. NEUROLOGICAL: The patient is awake, alert, oriented x3, mood and affect normal. Results CBC & Chem 7: 06/07/23 06:50 06/07/23 06:50 Labs: Abnormal Lab Results - Last 24 Hours (Table) 05/26/23 05/26/23 05/26/23 Range/Units 07:40 07:40 11:53 Hgb 11.5 L (13.0-17.0) d/dL MCH 25.9 L (27.0-32.0) pg MCHC 29.0 L (32.0-37.0) d/dL RDW 15.9 H (11.5-14.5) % PT 42.0 H (9.0-12.0) sec INR 4.3 H (<1.2) Anion Gap 16.30 H (4.00-12.00) mmol/L BUN 76.4 H (9.0-27.0) mg/dL Creatinine 3.4 H (0.6-1.5) mg/dL Est GFR (CKD-EPI) 17 L (>=60) BUN/Creatinine Ratio 22.47 H (12.00-20.00) Ratio Glucose (74-99) mg/dL AST 11 L (14-35) U/L ALT 9 L (10-49) U/L Alkaline Phosphatase 130 H (41-126) U/L Total Protein 5.8 L (6.2-8.2) d/dL Albumin 3.6 L (3.8-4.9) d/dL 05/27/23 05/27/23 05/27/23 Range/Units 07:39 07:39 07:39 Hgb 12.1 L (13.0-17.0) d/dL MCH (27.0-32.0) pg MCHC 29.9 L (32.0-37.0) d/dL RDW 16.0 H (11.5-14.5) % PT 34.3 H (9.0-12.0) sec INR 3.5 H (<1.2) Anion Gap (4.00-12.00) mmol/L BUN 90 H (9.0-27.0) mg/dL Creatinine 3.55 H (0.6-1.5) mg/dL Est GFR (CKD-EPI) (>=60) BUN/Creatinine Ratio (12.00-20.00) Ratio Glucose 110 H (74-99) mg/dL AST 15 L (14-35) U/L ALT (10-49) U/L Alkaline Phosphatase 139 H (41-126) U/L Total Protein 6.1 L (6.2-8.2) d/dL Albumin 3.4 L (3.8-4.9) d/dL Microbiology - Last 24 Hours (Table) 05/25/23 11:16 Blood Culture - Preliminary Blood 05/25/23 11:16 Blood Culture - Preliminary Blood Assessment and Plan (1) Bilateral lower leg cellulitis Status: Acute Code(s): L03.116 - CELLULITIS OF LEFT LOWER LIMB; L03.115 - CELLULITIS OF RIGHT LOWER LIMB SNOMED Code(s): 191688550 Plan: 1patient presented to hospital with redness to the lower extremity also did have significant swelling which is more likely due to the fluid overload in this patient with underlying CHF and renal insufficiency, the patient lower extremity was noted to be significantly cold and the patient did have a history of smoking underlying PAD need to be ruled out and possible component of mild cellulitis. 2patient with renal insufficiency high risk of nephrotoxicity. 3continue cefazolin which has been adjusted to the kidney function. We will follow on clinical condition and cultures to further adjust medication if needed Thank you for this consultation we will follow the patient along with you Dictation was produced using [email or web address] dictation software. please excuse any grammatical, word or spelling errors. Time with Patient: Greater than 30
[2023-05-28] MEDS: ACETAMINOPHEN TAB 325 MG TAB PO PRN ×2 (01:31→01:34)
--- NOTE | 2023-05-28 01:50 | PN ---
PROGRESS NOTE SUBJECTIVE: He continues to have systolic CHF. Continues on cefazolin for leg cellulitis Lasix for CHF. He had swelling and leakage of the water out of feet. Renal function has been worsening Flomax. ASSESSMENT AND PLAN: Severe pulmonary hypertension, chronic obstructive pulmonary disease, congestive heart failure systolic, benign prostatic hypertrophy, cellulitis of the legs, congestive heart failure overload. They added Zaroxolyn to go with the Lasix today. Continue with breathing treatments, oxygen. PROGNOSIS: Extremely guarded. MMODL / IJN: [id number] /
[2023-05-28] MEDS: LEVOTHYROXINE 100 MCG TAB PO SCH (05:47)
[2023-05-28] MEDS: BUDESONIDE 0.5 MG/2 ML NEBU INHALATION SCH ×2 (07:47→20:45)
[2023-05-28] MEDS: IPRATROPIUM-ALBUTEROL 3 ML NEB INHALATION SCH ×3 (07:47→20:45)
[2023-05-28 07:59] LABS: Basophils % (A) 0 %; Eosinophils # (A) 0.2 k/uL (0-0.7); Eosinophils % (A) 3 %; HCT 38.4 % (39.0-53.0); HGB 11.3 gm/dL (13.0-17.5); Hypochromasia Marked; Lymphocytes # (A) 1.1 k/uL (1.0-4.8); Lymphocytes % (A) 13 %; MCH 26.1 pg (25.0-35.0); MCHC 29.5 g/dL (31.0-37.0); MCV 88.4 fL (80.0-100.0); Mean Platelet Volume 8.7; Monocytes # (A) 0.5 k/uL (0-1.0); Monocytes % (A) 7 %; Neutrophils # (A) 5.9 k/uL (1.3-7.7); Neutrophils % (A) 76 %; Platelet Count 204 k/uL (150-450); RBC 4.35 m/uL (4.30-5.90); WBC 7.8 k/uL (3.8-10.6)
[2023-05-28 08:01] LABS: INR 2.8 (<1.2); Prothrombin Time 26.8 sec (9.0-12.0)
[2023-05-28 08:25] LABS: ALT 7 U/L (4-49); AST 14 U/L (17-59); African American GFR (CKD) 16 (>60 ml/min/1.73 sqM); Albumin 3.2 g/dL (3.5-5.0); Albumin/Globulin Ratio 1.2; Alkaline Phosphatase 133 U/L (38-126); Blood Urea Nitrogen 96 mg/dL (9-20); Calcium 8.6 mg/dL (8.4-10.2); Carbon Dioxide 25 mmol/L (22-30); Globulin 2.7 g/dL; Glucose 123 mg/dL (74-99); Magnesium 2.5 mg/dL (1.6-2.3); Non-African American GFR(CKD) 14 (>60 ml/min/1.73 sqM); Potassium 4.9 mmol/L (3.5-5.1); Sodium 136 mmol/L (137-145); Total Bilirubin 0.4 mg/dL (0.2-1.3); Total Protein 5.9 g/dL (6.3-8.2)
[2023-05-28] MEDS: FUROSEMIDE 10 MG/ML 4 ML VIAL IV SCH ×2 (08:45→21:42)
[2023-05-28] MEDS: AMIODARONE 100 MG TAB PO SCH (09:00)
[2023-05-28] MEDS: TAMSULOSIN 0.4 MG CAP.ER.24H PO SCH (09:00)
[2023-05-28] MEDS: MULTIVITAMINS, THERA 1 EACH TAB PO SCH (09:00)
[2023-05-28] MEDS: metOLazone 5 MG TAB PO SCH (09:00)
[2023-05-28] MEDS: ASPIRIN 81 MG PO SCH (09:01)
[2023-05-28] MEDS: FERROUS SULFATE 325 MG TAB PO SCH (09:01)
[2023-05-28 10:00] LABS: Anion Gap 9 mmol/L; Chloride 102 mmol/L (98-107)
--- NOTE | 2023-05-28 11:11 | P.PN ---
Subjective Patient is seen in follow-up for acute kidney injury on chronic kidney disease. Renal function slightly worse. Urine output documented about 1-1.3 L in the last 24 hours. On IV Lasix. Also on metolazone. Hemodynamically stable. On 4 L nasal cannula. Family present at bedside. Vital signs are stable. General: No acute distress. HEENT: Head exam is unremarkable. On nasal cannula. LUNGS: Scattered rhonchi. HEART: Rate and Rhythm are regular. ABDOMEN: Nontender. EXTREMITITES: Lower extremity erythema noted. 2+ edema. Objective - Vital Signs Vital signs: Vital Signs Temp 98.0 F 05/28/23 07:51 Pulse 93 05/28/23 08:02 Resp 20 05/28/23 07:51 BP 102/65 05/28/23 07:51 Pulse Ox 98 05/28/23 07:51 FiO2 Intake & Output 05/27/23 05/28/23 05/28/23 18:59 06:59 18:59 Intake Total 236 410 Output Total 900 425 Balance -664 -15 Weight 69.8 kg Intake: Intake, IV Titration 170 Amount Sodium Chloride 0.9% 1, 120 000 ml @ 20 mls/hr IV . Q24H [facility] Rx#:[id number] ceFAZolin 1,000 mg In 50 Sodium Chloride 0.9% 50 ml @ 100 mls/hr IVPB Q12HR [facility] Rx#:[id number] Oral 236 240 Output: Urine 650 425 Post Void Residual 250 Other: Voiding Method Urinal Urinal # Voids 1 - Labs CBC & Chem 7: 05/28/23 06:55 05/28/23 06:55 Labs: Abnormal Lab Results - Last 24 Hours (Table) 05/28/23 05/28/23 05/28/23 Range/Units 06:55 06:55 06:55 Hgb 11.3 L (13.0-17.5) gm/dL Hct 38.4 L (39.0-53.0) % MCHC 29.5 L (31.0-37.0) g/dL RDW 16.0 H (11.5-15.5) % PT 26.8 H (9.0-12.0) sec INR 2.8 H (<1.2) Sodium 136 L (137-145) mmol/L BUN 96 H (9-20) mg/dL Creatinine 3.66 H (0.66-1.25) mg/dL Glucose 123 H (74-99) mg/dL Magnesium 2.5 H (1.6-2.3) mg/dL AST 14 L (17-59) U/L Alkaline Phosphatase 133 H (38-126) U/L Total Protein 5.9 L (6.3-8.2) g/dL Albumin 3.2 L (3.5-5.0) g/dL Microbiology - Last 24 Hours (Table) 05/25/23 11:16 Blood Culture - Preliminary Blood 05/25/23 11:16 Blood Culture - Preliminary Blood Assessment and Plan Plan: Assessment: 1. Acute kidney injury secondary to ATN secondary to cardiorenal syndrome. Renal function stable. Creatinine 3.66 today. No hydronephrosis noted on CT done in March 2023. UA benign. 2. Chronic kidney disease stage IV secondary to nephrosclerosis with baseline creatinine in the range of 2.6-3. 3. Acute on chronic systolic CHF with ejection fraction of 25% with moderate to severe mitral regurgitation, moderate aortic and tricuspid regurgitation. 4. Volume overload. 5. Chronic kidney disease mineral bone disease maintained on calcitriol. 6. Lower extremity cellulitis on antibiotics. Plan: Maintain IV Lasix. Maintain metolazone. Low-salt diet and 1200 mL fluid restriction. Continue to monitor bladder scans to make sure no urinary retention. Avoid nephrotoxins. Continue to monitor renal function and urine output. Discussed need for renal replacement therapy due to volume overload. Patient states he needs to think about it. Continue to assess on a daily basis.
--- NOTE | 2023-05-28 12:40 | P.PN ---
Subjective Progress Note Date: 05/28/23 Principal diagnosis: Heart failure The patient is a pleasant 87-year-old gentleman with CAD and status post CABG and ischemic cardiomyopathy status post AICD as well as permanent atrial fibrillation as well as hypertension and dyslipidemia was admitted to the hospital with bilateral lower extremity edema related to heart failure and also bilateral lower extremity cellulitis May 272022 The patient was seen and evaluated this morning. He continues to have bilateral lower extremity edema. Currently he is on Lasix 40 mg IV 3 times a day. The creatinine is elevated but remains a stable. No symptoms of chest pain or chest discomfort or shortness of breath. From a cardiovascular standpoint of view, I would continue the current medical regimen including the current dose of Lasix with continue monitoring the kidney function and electrolytes and follow-up with the patient The examination is remarkable for severe bilateral lower extremity is edema. 05/28/2023 The patient was seen and evaluated this morning. He continues to be congested. Continues to have severe bilateral lower extremity is edema. He continues to have bilateral expiratory wheezing. He is on Lasix IV which I would suggest continue for at least additional 24 hours and continuing of the kidneys Ozzie. No symptoms of any chest pain or chest discomfort at this point. The examination is remarkable for severe bilateral lower extremity is edema and also bilateral expiratory wheezing Assessment Heart failure exacerbation secondary to heart failure with reduced ejection fraction CAD and status post CABG Ischemic cardiomyopathy Permanent atrial fibrillation Multiple comorbid conditions Chronic renal failure Lower extremity cellulitis Plan Continue the current medical regimen Continue the current dose of Lasix IV Follow-up with the patient Objective - Vital Signs Vital signs: Vital Signs Temp 98.0 F 05/28/23 07:51 Pulse 93 05/28/23 08:02 Resp 20 05/28/23 07:51 BP 102/65 05/28/23 07:51 Pulse Ox 98 05/28/23 07:51 FiO2 Intake & Output 05/27/23 05/28/23 05/28/23 18:59 06:59 18:59 Intake Total 236 410 Output Total 900 425 Balance -664 -15 Weight 69.8 kg Intake: Intake, IV Titration 170 Amount Sodium Chloride 0.9% 1, 120 000 ml @ 20 mls/hr IV . Q24H [facility] Rx#:[id number] ceFAZolin 1,000 mg In 50 Sodium Chloride 0.9% 50 ml @ 100 mls/hr IVPB Q12HR [facility] Rx#:[id number] Oral 236 240 Output: Urine 650 425 Post Void Residual 250 Other: Voiding Method Urinal Urinal # Voids 1 - Labs CBC & Chem 7: 05/28/23 06:55 05/28/23 06:55 Labs: Abnormal Lab Results - Last 24 Hours (Table) 05/28/23 05/28/23 05/28/23 Range/Units 06:55 06:55 06:55 Hgb 11.3 L (13.0-17.5) gm/dL Hct 38.4 L (39.0-53.0) % MCHC 29.5 L (31.0-37.0) g/dL RDW 16.0 H (11.5-15.5) % PT 26.8 H (9.0-12.0) sec INR 2.8 H (<1.2) Sodium 136 L (137-145) mmol/L BUN 96 H (9-20) mg/dL Creatinine 3.66 H (0.66-1.25) mg/dL Glucose 123 H (74-99) mg/dL Magnesium 2.5 H (1.6-2.3) mg/dL AST 14 L (17-59) U/L Alkaline Phosphatase 133 H (38-126) U/L Total Protein 5.9 L (6.3-8.2) g/dL Albumin 3.2 L (3.5-5.0) g/dL Microbiology - Last 24 Hours (Table) 05/25/23 11:16 Blood Culture - Preliminary Blood 05/25/23 11:16 Blood Culture - Preliminary Blood
[2023-05-28] MEDS: SODIUM CHLORIDE 0.9% 1,000 ML IV SCH (17:49)
[2023-05-28] MEDS ORDERED: WARFARIN 2.5 MG TAB PO ONE (18:00)
--- NOTE | 2023-05-29 00:41 | PN ---
PROGRESS NOTE SUBJECTIVE: An 87-year-old white male, still remains on cefazolin for leg cellulitis. Renal physician started him on Zaroxolyn for leg edema, severe swelling in his legs. Continues to have water flowing out of his legs. OBJECTIVE: VITAL SIGNS: Temperature is 97.8, blood pressure 107 to 112 over 70s, O2 96% on 4 L. CARDIOVASCULAR: S1, S2. LUNGS: Transmitted upper sounds. Scattered rhonchi. ABDOMEN: Soft. EXTREMITIES: 2+ edema in his lower extremities. Redness to the lower extremities. HEMATOLOGY: Negative Homans. PSYCH: Fair mood and affect. Kidney function GFR remains around 15. Does not want dialysis at this time, came on 4 L oxygen. White count is 7.8, hemoglobin is 11.3. ASSESSMENT: Acute kidney injury, cardiorenal syndrome, COPD, pulmonary hypertension, chronic kidney disease stage 4, systolic CHF due to environmental noncompliance with medications, etc. at home, volume overload, chronic kidney disease. He had calcitriol. Cellulitis of the legs, on antibiotics. He is on Lasix, metolazone. Fluid restriction. Flomax was started for bladder retention. He may need dialysis to get some of the fluid off as a temporary basis. Prognosis guarded. Please see further orders. MMODL / IJN: [id number] /
[2023-05-29 05:39] LABS: INR 2.1 (<1.2); Prothrombin Time 20.8 sec (9.0-12.0)
[2023-05-29] MEDS: LEVOTHYROXINE 100 MCG TAB PO SCH (06:17)
--- NOTE | 2023-05-29 08:20 | P.PN ---
Subjective Progress Note Date: 05/28/23 Principal diagnosis: Bilateral Leg Cellulitis Patient is a 87-year-old male with a past medical history significant for atrial fibrillation coronary artery disease COPD diabetes mellitus heart failure liver disease patient presenting to the hospital 2 days ago for evalu ation of red legs apparently the patient symptom has been going on for a week before presentation to the hospital, patient has been diagnosed with cellulitis started on cefazolin. On today's evaluation that is 05/28/2023, patient remains to be afebrile, the patient is breathing comfortably on 4 L nasal cannula oxygen lower extremity swelling and pain has slightly decreased did have blister on the right lateral leg with some clear drainage. Patient did have a hemoglobin of 11.1% 0.8 creatinine 3.66 blood cultures obtained currently pending Objective - Vital Signs Vital signs: Vital Signs Temp 97.8 F 05/28/23 19:59 Pulse 92 05/28/23 21:40 Resp 20 05/28/23 21:40 BP 107/70 05/28/23 19:59 Pulse Ox 96 05/28/23 19:59 FiO2 Intake & Output 05/28/23 05/28/23 05/29/23 06:59 18:59 06:59 Intake Total 410 Output Total 425 900 Balance -15 Weight 69.8 kg Intake: Intake, IV Titration 170 Amount Sodium Chloride 0.9% 1, 120 000 ml @ 20 mls/hr IV . Q24H [facility] Rx#:[id number] ceFAZolin 1,000 mg In 50 Sodium Chloride 0.9% 50 ml @ 100 mls/hr IVPB Q12HR [facility] Rx#:[id number] Oral 240 Output: Urine 425 900 Other: Voiding Method Urinal Urinal Urinal - Exam GENERAL DESCRIPTION: Elderly male lying in bed in no distress RESPIRATORY SYSTEM: Unlabored breathing , decreased breath sounds at bases HEART: S1 S2 regular rate and rhythm ,no loud murmurs ABDOMEN: Soft , no tenderness EXTREMITIES: Bilateral extremity the swelling minimal redness not as cold today with a blister on right lateral leg some clear drainage - Labs CBC & Chem 7: 05/28/23 06:55 05/28/23 06:55 Labs: Abnormal Lab Results - Last 24 Hours (Table) 05/28/23 05/28/23 05/28/23 Range/Units 06:55 06:55 06:55 Hgb 11.3 L (13.0-17.5) gm/dL Hct 38.4 L (39.0-53.0) % MCHC 29.5 L (31.0-37.0) g/dL RDW 16.0 H (11.5-15.5) % PT 26.8 H (9.0-12.0) sec INR 2.8 H (<1.2) Sodium 136 L (137-145) mmol/L BUN 96 H (9-20) mg/dL Creatinine 3.66 H (0.66-1.25) mg/dL Glucose 123 H (74-99) mg/dL Magnesium 2.5 H (1.6-2.3) mg/dL AST 14 L (17-59) U/L Alkaline Phosphatase 133 H (38-126) U/L Total Protein 5.9 L (6.3-8.2) g/dL Albumin 3.2 L (3.5-5.0) g/dL Microbiology - Last 24 Hours (Table) 05/25/23 11:16 Blood Culture - Preliminary Blood 05/25/23 11:16 Blood Culture - Preliminary Blood Assessment and Plan (1) Bilateral lower leg cellulitis Current Visit: Yes Status: Acute Code(s): L03.116 - CELLULITIS OF LEFT LOWER LIMB; L03.115 - CELLULITIS OF RIGHT LOWER LIMB SNOMED Code(s): 650304599 Plan: 1patient presented to hospital with redness to the lower extremity also did have significant swelling which is more likely due to the fluid overload in this patient with underlying CHF and renal insufficiency, the patient lower extremity was noted to be significantly cold and the patient did have a history of smoking underlying PAD need to be ruled out and possible component of mild cellulitis. 2patient with renal insufficiency high risk of nephrotoxicity. 3local wound care with Aquacel dressing and mild compression discussed with the RN 4patient to continue with the cefazolin and monitor clinical course closely at the bedside questions were answered Dictation was produced using [employer] software. please excuse any grammatical, word or spelling errors.
[2023-05-29] MEDS: IPRATROPIUM-ALBUTEROL 3 ML NEB INHALATION SCH ×3 (08:35→20:41)
[2023-05-29] MEDS: BUDESONIDE 0.5 MG/2 ML NEBU INHALATION SCH ×2 (08:36→20:41)
[2023-05-29 08:49] LABS: Albumin 3.6 d/dL (3.8-4.9); BUN/Creat Ratio 25.18 Ratio (12.00-20.00); Blood Urea Nitrogen 95.7 mg/dL (9.0-27.0); Calcium 8.9 mg/dL (8.7-10.3); Carbon Dioxide 23.8 mmol/L (21.6-31.8); Chloride 101 mmol/L (96-109); Glucose 135 mg/dL (70-110); Magnesium 2.7 mg/dL (1.5-2.4); Sodium 140 mmol/L (135-145)
--- NOTE | 2023-05-29 09:44 | P.PN ---
Subjective Progress Note Date: 05/29/23 Heart failure The patient is a pleasant 87-year-old gentleman with CAD and status post CABG and ischemic cardiomyopathy status post AICD as well as permanent atrial fibrillation as well as hypertension and dyslipidemia was admitted to the hospital with bilateral lower extremity edema related to heart failure and also bilateral lower extremity cellulitis May [id number] The patient was seen and evaluated this morning. He continues to have bilateral lower extremity edema. Currently he is on Lasix 40 mg IV 3 times a day. The creatinine is elevated but remains a stable. No symptoms of chest pain or chest discomfort or shortness of breath. From a cardiovascular standpoint of view, I would continue the current medical regimen including the current dose of Lasix with continue monitoring the kidney function and electrolytes and follow-up with the patient The examination is remarkable for severe bilateral lower extremity is edema. 05/28/2023 The patient was seen and evaluated this morning. He continues to be congested. Continues to have severe bilateral lower extremity is edema. He continues to have bilateral expiratory wheezing. He is on Lasix IV which I would suggest continue for at least additional 24 hours and continuing of the kidneys Ozzie. No symptoms of any chest pain or chest discomfort at this point. The examination is remarkable for severe bilateral lower extremity is edema and also bilateral expiratory wheezing 05/29 Patient is seen today in follow-up. He is currently on IV Lasix 60 mg twice daily. Patient recently had an adjustment made to his ICD. Dr. Carrera would like an additional adjustment made and will be contacting [facility]. Noted the patient is not on a beta lelo at home and will review office records regarding this. Blood pressure 108/72, heart rate in the 70s and 80s, pulse ox 99% on 4 L. Patient is continued on warfarin dosed by pharmacy. INR is 2.1. Sodium 140, potassium 5, BUN 95 and creatinine 3.8. Assessment Heart failure exacerbation secondary to heart failure with reduced ejection fraction CAD and status post CABG Ischemic cardiomyopathy Permanent atrial fibrillation Multiple comorbid conditions Chronic renal failure Lower extremity cellulitis Plan Continue the current medical regimen Continue the current dose of Lasix IV Make adjustment to [facility] ICD device Review office records for medications Follow-up with the patient Nurse practitioner note has been reviewed, I agree with the documented findings and plan of care. Patient was seen and examined. Objective - Vital Signs Vital signs: Vital Signs Temp 98.6 F 05/29/23 07:19 Pulse 87 05/29/23 08:58 Resp 18 05/29/23 07:19 BP 108/72 05/29/23 07:19 Pulse Ox 94 L 05/29/23 08:36 FiO2 Intake & Output 05/28/23 05/29/23 05/29/23 18:59 06:59 18:59 Output Total 900 400 Balance -900 -400 Weight 69.3 kg Output: Urine 900 400 Other: Voiding Method Urinal Urinal - Labs CBC & Chem 7: 05/28/23 06:55 05/29/23 05:11 Labs: Abnormal Lab Results - Last 24 Hours (Table) 05/28/23 05/29/23 05/29/23 Range/Units 06:55 05:11 05:11 PT 20.8 H (9.0-12.0) sec INR 2.1 H (<1.2) Sodium 136 L (137-145) mmol/L Anion Gap 15.20 H (4.00-12.00) mmol/L BUN 96 H 95.7 H (9-20) mg/dL Creatinine 3.66 H 3.8 H (0.66-1.25) mg/dL Est GFR (CKD-EPI) 15 L (>=60) BUN/Creatinine Ratio 25.18 H (12.00-20.00) Ratio Glucose 123 H 135 H (74-99) mg/dL Magnesium 2.5 H 2.7 H (1.6-2.3) mg/dL AST 14 L (17-59) U/L Alkaline Phosphatase 133 H (38-126) U/L Total Protein 5.9 L (6.3-8.2) g/dL Albumin 3.2 L 3.6 L (3.5-5.0) g/dL Microbiology - Last 24 Hours (Table) 05/25/23 11:16 Blood Culture - Preliminary Blood 05/25/23 11:16 Blood Culture - Preliminary Blood
[2023-05-29] MEDS: FUROSEMIDE 10 MG/ML 4 ML VIAL IV SCH (10:33)
[2023-05-29] MEDS: MULTIVITAMINS, THERA 1 EACH TAB PO SCH (10:34)
[2023-05-29] MEDS: AMIODARONE 100 MG TAB PO SCH (10:34)
[2023-05-29] MEDS: FERROUS SULFATE 325 MG TAB PO SCH (10:34)
[2023-05-29] MEDS: ASPIRIN 81 MG PO SCH (10:34)
[2023-05-29] MEDS: metOLazone 5 MG TAB PO SCH (10:35)
[2023-05-29] MEDS: TAMSULOSIN 0.4 MG CAP.ER.24H PO SCH (10:35)
[2023-05-29] MEDS: SODIUM CHLORIDE 0.9% 1,000 ML IV SCH (10:35)
--- NOTE | 2023-05-29 12:39 | P.PN ---
Subjective Patient is seen in follow-up for acute kidney injury on chronic kidney disease. Renal function slightly worse. Urine output documented about 1-1.3 L in the last 24 hours. On IV Lasix. Also on metolazone. Hemodynamically stable. On 4 L nasal cannula. Family present at bedside. Vital signs are stable. General: No acute distress. HEENT: Head exam is unremarkable. On nasal cannula. LUNGS: Scattered rhonchi. HEART: Rate and Rhythm are regular. ABDOMEN: Nontender. EXTREMITITES: Lower extremity erythema noted. 2+ edema. Objective - Vital Signs Vital signs: Vital Signs Temp 98.6 F 05/29/23 07:19 Pulse 87 05/29/23 08:58 Resp 18 05/29/23 07:19 BP 108/72 05/29/23 07:19 Pulse Ox 94 L 05/29/23 08:36 FiO2 Intake & Output 05/28/23 05/29/23 05/29/23 18:59 06:59 18:59 Output Total 900 400 Balance -900 -400 Weight 69.3 kg Output: Urine 900 400 Other: Voiding Method Urinal Urinal Urinal - Labs CBC & Chem 7: 05/28/23 06:55 05/29/23 05:11 Labs: Abnormal Lab Results - Last 24 Hours (Table) 05/29/23 05/29/23 Range/Units 05:11 05:11 PT 20.8 H (9.0-12.0) sec INR 2.1 H (<1.2) Anion Gap 15.20 H (4.00-12.00) mmol/L BUN 95.7 H (9.0-27.0) mg/dL Creatinine 3.8 H (0.6-1.5) mg/dL Est GFR (CKD-EPI) 15 L (>=60) BUN/Creatinine Ratio 25.18 H (12.00-20.00) Ratio Glucose 135 H (70-110) mg/dL Magnesium 2.7 H (1.5-2.4) mg/dL Albumin 3.6 L (3.8-4.9) d/dL Microbiology - Last 24 Hours (Table) 05/25/23 11:16 Blood Culture - Preliminary Blood 05/25/23 11:16 Blood Culture - Preliminary Blood Assessment and Plan Plan: Assessment: 1. Acute kidney injury secondary to ATN secondary to cardiorenal syndrome. Renal function stable. Creatinine 3.88 today. No hydronephrosis noted on CT done in March 2023. UA benign. 2. Chronic kidney disease stage IV secondary to nephrosclerosis with baseline creatinine in the range of 2.6-3. 3. Acute on chronic systolic CHF with ejection fraction of 25% with moderate to severe mitral regurgitation, moderate aortic and tricuspid regurgitation. 4. Volume overload. 5. Chronic kidney disease mineral bone disease maintained on calcitriol. 6. Lower extremity cellulitis on antibiotics. Plan: Maintain IV Lasix. Increase dose to 80 mg. Maintain metolazone. Low-salt diet and 1200 mL fluid restriction. Bladder scans have been negative for urinary retention. Avoid nephrotoxins. Continue to monitor renal function and urine output. Again discussed need for renal replacement therapy due to volume overload. Patient states he hasn't made up his mind and still wants to think about it and discuss with his family. Continue to assess on a daily basis.
[2023-05-29] MEDS ORDERED: WARFARIN 2.5 MG TAB PO ONE (18:00)
--- NOTE | 2023-05-29 21:02 | PN ---
PROGRESS NOTE SUBJECTIVE: INR is now down to 2.1, hemoglobin is 11.3, white count 7.8. GFR is 15. He was started on higher dose Zaroxolyn and Lasix due to leg edema and swelling. Blood cultures are negative. Dr. Luis saw the patient with acute kidney injury with worsening CHF due to noncompliance of outpatient medications. Urine output 1-1.3 L in 24 hours on Lasix and metolazone. He is on 4 L oxygen. OBJECTIVE: VITAL SIGNS: Blood pressure 108/72, O2 of 94%, pulse is 87, respiratory rate 16 to 18, temp 98.6. CARDIOVASCULAR: S1, S2. LUNGS: Scattered wheeze x4. HEMATOLOGY: Negative Homans. PSYCH: Fair mood and affect. LABORATORY DATA: BUN is 95, creatinine 3.8. PLAN: Increase his Lasix and metolazone. Fluid restriction. Bladder scan negative for retention. Cardiorenal syndrome, worsening renal function due to increased diuresis. Systolic CHF, cellulitis. Prognosis guarded. MMODL / IJN: [id number] /
[2023-05-29] MEDS: FUROSEMIDE 10 MG/ML 10 ML VIAL IV SCH (22:09)
[2023-05-30] MEDS: LEVOTHYROXINE 100 MCG TAB PO SCH (06:54)
[2023-05-30] MEDS: MIDODRINE 5 MG TAB PO SCH ×4 (06:54→19:31)
[2023-05-30 07:40] LABS: INR 2.2 (<1.2); Prothrombin Time 21.7 sec (9.0-12.0)
--- NOTE | 2023-05-30 07:51 | P.PN ---
Subjective Progress Note Date: 05/29/23 Principal diagnosis: Bilateral Leg Cellulitis Patient is a 87-year-old male with a past medical history significant for atrial fibrillation coronary artery disease COPD diabetes mellitus heart failure liver disease patient presenting to the hospital 2 days ago for evalu ation of red legs apparently the patient symptom has been going on for a week before presentation to the hospital, patient has been diagnosed with cellulitis started on cefazolin. On today's evaluation that is 05/29/2023, the patient remains to be afebrile, the patient is breathing comfortably on 3 L nasal cannula oxygen patient denies having any chest pain did have some shortness of breath or cough still complaining of discomfort in the lower extremity but no worsening has been tolerating his compression dressing. No CBC was done today his white count was 7.8 yesterday INR is 2.1 creatinine 3. 8 blood cultures currently pending Objective - Vital Signs Vital signs: Vital Signs Temp 97.9 F 05/29/23 20:00 Pulse 96 05/29/23 20:53 Resp 17 05/29/23 20:00 BP 94/51 05/29/23 20:00 Pulse Ox 97 05/29/23 20:00 FiO2 Intake & Output 05/29/23 05/29/23 05/30/23 06:59 18:59 06:59 Intake Total 800 Output Total 400 700 Balance -400 100 Weight 69.3 kg Intake: Oral 800 Output: Urine 400 700 Other: Voiding Method Urinal Urinal - Exam GENERAL DESCRIPTION: Elderly male lying in bed in no distress RESPIRATORY SYSTEM: Unlabored breathing , decreased breath sounds at bases HEART: S1 S2 regular rate and rhythm ,no loud murmurs ABDOMEN: Soft , no tenderness EXTREMITIES: Dressing has just been changed by the nursing staff mention swelling to the leg but redness has improved and no drainage - Labs CBC & Chem 7: 05/28/23 06:55 05/29/23 05:11 Labs: Abnormal Lab Results - Last 24 Hours (Table) 05/29/23 05/29/23 Range/Units 05:11 05:11 PT 20.8 H (9.0-12.0) sec INR 2.1 H (<1.2) Anion Gap 15.20 H (4.00-12.00) mmol/L BUN 95.7 H (9.0-27.0) mg/dL Creatinine 3.8 H (0.6-1.5) mg/dL Est GFR (CKD-EPI) 15 L (>=60) BUN/Creatinine Ratio 25.18 H (12.00-20.00) Ratio Glucose 135 H (70-110) mg/dL Magnesium 2.7 H (1.5-2.4) mg/dL Albumin 3.6 L (3.8-4.9) d/dL Assessment and Plan (1) Bilateral lower leg cellulitis Current Visit: Yes Status: Acute Code(s): L03.116 - CELLULITIS OF LEFT LOWER LIMB; L03.115 - CELLULITIS OF RIGHT LOWER LIMB SNOMED Code(s): 273183134 Plan: 1patient presented to hospital with redness to the lower extremity also did have significant swelling which is more likely due to the fluid overload in this patient with underlying CHF and renal insufficiency, the patient lower extremity was noted to be significantly cold and the patient did have a history of smoking underlying PAD need to be ruled out and possible component of mild cellulitis. 2patient with renal insufficiency high risk of nephrotoxicity. 3local wound care with Aquacel dressing and mild compression discussed with the RN 4patient did have a minimal clinical improvement as far as cellulitis to lower extremities concerned we will continue patient on cefazolin and monitor his clinical course closely Dictation was produced using [employer] dictation software. please excuse any grammatical, word or spelling errors.
[2023-05-30] MEDS: IPRATROPIUM-ALBUTEROL 3 ML NEB INHALATION SCH ×3 (08:27→21:20)
[2023-05-30] MEDS: BUDESONIDE 0.5 MG/2 ML NEBU INHALATION SCH ×2 (08:27→21:20)
[2023-05-30] MEDS: FUROSEMIDE 10 MG/ML 10 ML VIAL IV SCH ×2 (08:38→22:06)
[2023-05-30] MEDS: FERROUS SULFATE 325 MG TAB PO SCH (08:38)
[2023-05-30] MEDS: MULTIVITAMINS, THERA 1 EACH TAB PO SCH (08:39)
[2023-05-30] MEDS: metOLazone 5 MG TAB PO SCH (08:39)
[2023-05-30] MEDS: ASPIRIN 81 MG PO SCH (10:37)
[2023-05-30] MEDS: AMIODARONE 100 MG TAB PO SCH (10:37)
[2023-05-30] MEDS: TAMSULOSIN 0.4 MG CAP.ER.24H PO SCH (10:37)
[2023-05-30 11:07] LABS: Magnesium 2.5 mg/dL (1.5-2.4)
[2023-05-30 11:22] LABS: BUN/Creat Ratio 26.41 Ratio (12.00-20.00); Calcium 9.1 mg/dL (8.7-10.3); Carbon Dioxide 24.3 mmol/L (21.6-31.8); Chloride 100 mmol/L (96-109); Glucose 116 mg/dL (70-110); Potassium 5.1 mmol/L (3.5-5.5); Sodium 138 mmol/L (135-145)
[2023-05-30] MEDS: SODIUM CHLORIDE 0.9% 1,000 ML IV SCH (12:48)
--- NOTE | 2023-05-30 13:02 | P.PN ---
Subjective Patient is seen in follow-up for acute kidney injury on chronic kidney disease. Renal function continues to worsen. Urine output documented about 1-1.3 L in the last 24 hours. On IV Lasix. Also on metolazone. Hemodynamically stable. On 2 L nasal cannula. Family present at bedside. Vital signs are stable. General: No acute distress. HEENT: Head exam is unremarkable. On nasal cannula. LUNGS: Scattered rhonchi. HEART: Rate and Rhythm are regular. ABDOMEN: Nontender. EXTREMITITES: Lower extremity erythema noted. 2+ edema. Objective - Vital Signs Vital signs: Vital Signs Temp 96.7 F L 05/30/23 07:11 Pulse 75 05/30/23 11:59 Resp 18 05/30/23 07:11 BP 107/64 05/30/23 07:11 Pulse Ox 94 L 05/30/23 08:27 FiO2 Intake & Output 05/29/23 05/30/23 05/30/23 18:59 06:59 18:59 Intake Total 800 Output Total 700 375 300 Balance 100 -375 -300 Weight 69.3 kg 69.3 kg Intake: Oral 800 Output: Urine 700 375 300 Other: Voiding Method Urinal Urinal # Voids 0 - Labs CBC & Chem 7: 05/28/23 06:55 05/30/23 07:16 Labs: Abnormal Lab Results - Last 24 Hours (Table) 05/30/23 05/30/23 Range/Units 07:16 07:16 PT 21.7 H (9.0-12.0) sec INR 2.2 H (<1.2) Anion Gap 13.70 H (4.00-12.00) mmol/L BUN 103.0 H* (9.0-27.0) mg/dL Creatinine 3.9 H (0.6-1.5) mg/dL Est GFR (CKD-EPI) 14 L (>=60) BUN/Creatinine Ratio 26.41 H (12.00-20.00) Ratio Glucose 116 H (70-110) mg/dL Magnesium 2.5 H (1.5-2.4) mg/dL Assessment and Plan Plan: Assessment: 1. Acute kidney injury secondary to ATN secondary to cardiorenal syndrome. Renal function continues to worsen. Creatinine 3.9 today. No hydronephrosis noted on CT done in March 2023. UA benign. 2. Chronic kidney disease stage IV secondary to nephrosclerosis with baseline creatinine in the range of 2.6-3. 3. Acute on chronic systolic CHF with ejection fraction of 25% with moderate to severe mitral regurgitation, moderate aortic and tricuspid regurgitation. 4. Volume overload. 5. Chronic kidney disease mineral bone disease maintained on calcitriol. 6. Lower extremity cellulitis on antibiotics. Plan: Maintain IV Lasix. Maintain metolazone. Low-salt diet and 1200 mL fluid restriction. Bladder scans have been negative for urinary retention. Avoid nephrotoxins. Continue to monitor renal function and urine output. Due to worsening renal function, volume overload, initiate renal replacement therapy. Patient and family agreeable. Plan for first unit of hemodialysis today and second treatment tomorrow.
[2023-05-30] MEDS ORDERED: IV FLUID CONTINUATION 500 ML IV ONE (14:28)
[2023-05-30] MEDS: LIDOCAINE 1% INJ 10MG/ML (20 ML MDV) SQ ONE ×2 (14:35→14:42)
[2023-05-30] MEDS ORDERED: MIDAZOLAM 2 MG/2 ML VIAL IVP ONE (14:37)
[2023-05-30] MEDS ORDERED: fentaNYL (PF) 50 MCG/ML 2 ML AMP IVP ONE (14:38)
--- NOTE | 2023-05-30 15:09 | IR ---
EXAMINATION TYPE: IR cvc insert central tunneled DATE OF EXAM: 05/30/2023 COMPARISON: NONE HISTORY: Fluoroscopy time. Fluoroscopy was provided to the referring clinician.
--- NOTE | 2023-05-30 16:16 | P.PN ---
Subjective Progress Note Date: 05/30/23 Principal diagnosis: Bilateral Leg Cellulitis Patient is a 87-year-old male with a past medical history significant for atrial fibrillation coronary artery disease COPD diabetes mellitus heart failure liver disease patient presenting to the hospital 2 days ago for evalu ation of red legs apparently the patient symptom has been going on for a week before presentation to the hospital, patient has been diagnosed with cellulitis started on cefazolin. On today's evaluation that is 05/30/2023, the patient continues to be afebrile, the patient is breathing comfortably on 3 L nasal cannula oxygen patient denies having any chest pain , the patient did have some shortness of breath or cough , discomfort in the lower extremity has decreased intensity and the patient has be en tolerating his compression dressing. No CBC was done today his white count was 7.8 as of 05/28/2023 INR is 2.2 creatinine 3.9 blood cultures currently pending Objective - Vital Signs Vital signs: Vital Signs Temp 96.7 F L 05/30/23 07:11 Pulse 75 05/30/23 11:59 Resp 18 05/30/23 07:11 BP 107/64 05/30/23 07:11 Pulse Ox 94 L 05/30/23 08:27 FiO2 Intake & Output 05/29/23 05/30/23 05/30/23 18:59 06:59 18:59 Intake Total 800 Output Total 700 375 300 Balance 100 -375 -300 Weight 69.3 kg 69.3 kg Intake: Oral 800 Output: Urine 700 375 300 Other: Voiding Method Urinal Urinal # Voids 0 - Exam GENERAL DESCRIPTION: Elderly male lying in bed in no distress RESPIRATORY SYSTEM: Unlabored breathing , decreased breath sounds at bases HEART: S1 S2 regular rate and rhythm ,no loud murmurs ABDOMEN: Soft , no tenderness EXTREMITIES: Bilateral lower extremity are currently wrapped in [place] wrap no drainage on the dressing - Labs CBC & Chem 7: 05/28/23 06:55 05/30/23 07:16 Labs: Abnormal Lab Results - Last 24 Hours (Table) 05/30/23 05/30/23 Range/Units 07:16 07:16 PT 21.7 H (9.0-12.0) sec INR 2.2 H (<1.2) Anion Gap 13.70 H (4.00-12.00) mmol/L BUN 103.0 H* (9.0-27.0) mg/dL Creatinine 3.9 H (0.6-1.5) mg/dL Est GFR (CKD-EPI) 14 L (>=60) BUN/Creatinine Ratio 26.41 H (12.00-20.00) Ratio Glucose 116 H (70-110) mg/dL Magnesium 2.5 H (1.5-2.4) mg/dL Assessment and Plan (1) Bilateral lower leg cellulitis Current Visit: Yes Status: Acute Code(s): L03.116 - CELLULITIS OF LEFT LOWER LIMB; L03.115 - CELLULITIS OF RIGHT LOWER LIMB SNOMED Code(s): 535696010 Plan: 1patient presented to hospital with redness to the lower extremity also did have significant swelling which is more likely due to the fluid overload in this patient with underlying CHF and renal insufficiency, the patient lower extremity was noted to be significantly cold and the patient did have a history of smoking underlying PAD need to be ruled out and possible component of mild cellulitis. 2patient with renal insufficiency high risk of nephrotoxicity. 3local wound care with Aquacel dressing and mild compression changed every 48 hours 4patient did have a clinical improvement as far as cellulitis to lower extremities concerned 5- we will continue patient on cefazolin and monitor his clinical course closely While at the bedside questions were answered Dictation was produced using [employer] dictation software. please excuse any grammatical, word or spelling errors. Time with Patient: Less than 30
--- NOTE | 2023-05-30 17:04 | P.GSCN ---
History of Present Illness History of present illness: 87-year-old gentleman consulted for placement of dialysis catheter. Patient has a history of chronic renal failure with high BUN/creatinine patient has a pacemaker on the left side of chest patient has a Port-A-Cath on the right side of the chest patient had a history of non-Hodgkin lymphoma treated with the chemotherapy in the past Patient was seen in the room neck supple trachea central no bruit appreciated patient has a pacemaker on the left side and Port-A-Cath on the right side good entry both lungs first and second sound present patient has history of atrial fibrillation on Coumadin we will stop the Coumadin and nothing by mouth for dialysis catheter placement. Past Medical History Past Medical History: Atrial Fibrillation, Coronary Artery Disease (CAD), Cancer, Heart Failure, COPD, Diabetes Mellitus, Hypertension, Liver Disease, Myocardial Infarction ([place]), Renal Disease, Thyroid Disorder Additional Past Medical History / Comment(s): See Dr Carrera's H&P,mantle cell lymphoma treated 9-10 years ago with chemo, hx pleural effusion L side with thoracentesis x2, sepsis, urinary retention, hepatitis in 1950 type unknown, diff swallowing, decreased kidney function Last Myocardial Infarction Date:: 1998 History of Any Multi-Drug Resistant Organisms: None Reported Past Surgical History: AICD, Coronary Bypass/CABG, Heart Catheterization, Pacemaker Additional Past Surgical History / Comment(s): PTCA, 1998 4 vessel CABG, cardioversion, L thoracentesis x2, colonoscopy, bone marrow bx, bilateral cataract removal, mediport. Past Anesthesia/Blood Transfusion Reactions: No Reported Reaction Type of Cardiac Device: Permanent Pacemaker, AICD Device Placement Date:: 2004 implant/2017 gen change Past Psychological History: No Psychological Hx Reported Additional Psychological History / Comment(s): Lives in the family home with his . 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 Denies any recent travels. No recent animal exposures. Uses cane to ambulate. Pt drives. Smoking Status: Former smoker Past Alcohol Use History: None Reported Additional Past Alcohol Use History / Comment(s): Pt smoked from about 1955 until 1994. 1 ppd Past Drug Use History: None Reported - Past Family History Mother Family Medical History: No Reported History Additional Family Medical History / Comment(s): Mother was healthy and lived to be 86yrs old. Brother(s) Family Medical History: Cancer Father Family Medical History: Cancer Additional Family Medical History / Comment(s): Father had bone cancer. He also had "heart problems." He at the age of 82 yrs. Medications and Allergies Home Medications Medication Instructions Recorded Confirmed Type Aspirin EC [Ecotrin Low Dose] 81 mg PO DAILY 01/31/15 05/25/23 History Levothyroxine Sodium [Synthroid] 100 mcg PO DAILY 06/22/17 05/25/23 History Amiodarone [Cordarone] 100 mg PO DAILY #90 tab 05/29/18 05/25/23 Rx Warfarin [Coumadin] 1.25 mg PO TUSA 01/28/22 05/25/23 History Warfarin [Coumadin] 2.5 mg PO SUMOWETHFR 01/28/22 05/25/23 History allopurinoL [Zyloprim] 300 mg PO DAILY 01/28/22 05/25/23 History calcitrioL [Calcitriol] 0.25 mcg PO COUGHLIN 01/28/22 05/25/23 History Furosemide [Lasix] 80 mg PO DAILY 02/19/22 05/25/23 History Ferrous Sulfate [Feosol] 325 mg PO DAILY 05/25/23 05/25/23 History Ipratropium-Albuterol Nebulize 3 ml INHALATION RT-TID 05/25/23 05/25/23 History [Duoneb 0.5 mg-3 mg/3 ml Soln] Multivitamins, Thera [Multivitamin 1 tab PO DAILY 05/25/23 05/25/23 History (formulary)] Allergies Allergy/AdvReac Type Severity Reaction Status Date / Time No Known Allergies Allergy Verified 05/25/23 11:32 Surgical - Exam Vital Signs Temp Pulse Resp BP Pulse Ox 98.4 F 83 20 105/69 99 05/25/23 09:44 05/25/23 09:44 05/25/23 09:44 05/25/23 09:44 05/25/23 09:44 Results - Labs 05/28/23 06:55 05/30/23 07:16 Abnormal Lab Results - Last 24 Hours (Table) 05/30/23 05/30/23 Range/Units 07:16 07:16 PT 21.7 H (9.0-12.0) sec INR 2.2 H (<1.2) Anion Gap 13.70 H (4.00-12.00) mmol/L BUN 103.0 H* (9.0-27.0) mg/dL Creatinine 3.9 H (0.6-1.5) mg/dL Est GFR (CKD-EPI) 14 L (>=60) BUN/Creatinine Ratio 26.41 H (12.00-20.00) Ratio Glucose 116 H (70-110) mg/dL Magnesium 2.5 H (1.5-2.4) mg/dL Diabetes panel 05/30/23 Range/Units 07:16 Sodium 138 (135-145) mmol/L Potassium 5.1 (3.5-5.5) mmol/L Chloride 100 (96-109) mmol/L Carbon Dioxide 24.3 (21.6-31.8) mmol/L BUN 103.0 H* (9.0-27.0) mg/dL Creatinine 3.9 H (0.6-1.5) mg/dL Glucose 116 H (70-110) mg/dL Calcium 9.1 (8.7-10.3) mg/dL Calcium panel 05/30/23 Range/Units 07:16 Calcium 9.1 (8.7-10.3) mg/dL Pituitary panel 05/30/23 Range/Units 07:16 Sodium 138 (135-145) mmol/L Potassium 5.1 (3.5-5.5) mmol/L Chloride 100 (96-109) mmol/L Carbon Dioxide 24.3 (21.6-31.8) mmol/L BUN 103.0 H* (9.0-27.0) mg/dL Creatinine 3.9 H (0.6-1.5) mg/dL Glucose 116 H (70-110) mg/dL Calcium 9.1 (8.7-10.3) mg/dL Adrenal panel 05/30/23 Range/Units 07:16 Sodium 138 (135-145) mmol/L Potassium 5.1 (3.5-5.5) mmol/L Chloride 100 (96-109) mmol/L Carbon Dioxide 24.3 (21.6-31.8) mmol/L BUN 103.0 H* (9.0-27.0) mg/dL Creatinine 3.9 H (0.6-1.5) mg/dL Glucose 116 H (70-110) mg/dL Calcium 9.1 (8.7-10.3) mg/dL
--- NOTE | 2023-05-30 17:06 | P.PCN ---
Description of Procedure: Preoperative diagnosis acute chronic renal failure Postop same Procedure patient was brought to the [facility] right groin were prepped and draped for breast manner 1% lidocaine plain was infiltrated with IV sedation ultrasound guided micropuncture introducer right femoral vein micropuncture guidewire was passed and 4-Uzbek dilator. The guidewire. Then we passed a regular guidewire visual parked at the inferior vena cava a dilator were top the guidewire then replaced the sheath then tunnel was created through the terminal be brought 28 same dialysis catheter which was introduced through the sheath and sheath was removed flushed with heparin saline and Hep-Lock secured with 3-0 nylon dressing applied patient tolerated the procedure well
[2023-05-30] MEDS ORDERED: WARFARIN 0.5 MG TAB PO ONE (18:00)
--- NOTE | 2023-05-31 02:42 | PN ---
PROGRESS NOTE SUBJECTIVE: The patient remains on Zaroxolyn, high-dose Lasix, has worsening renal function due to the increased diuresis on Lasix and Zaroxolyn. Going to give dialysis for a couple of days. Get fluid off him. Continue his home medications. OBJECTIVE: CARDIOVASCULAR: S1, S2. LUNGS: Rales at the bases. HEMATOLOGY: Negative for Homans. PSYCH: Fair mood and affect. EXTREMITIES: 2+ edema, bilateral legs. atrial fibrillation. Continue current treatment. Dialysis for a day or 2, continue with breathing treatment, breathing treatments diuresis. PROGNOSIS: Guarded. Antibiotics for his legs. MMODL / IJN: [id number] /
[2023-05-31] MEDS: LEVOTHYROXINE 100 MCG TAB PO SCH (06:13)
[2023-05-31] MEDS: MIDODRINE 5 MG TAB PO SCH ×3 (06:13→17:30)
[2023-05-31 07:36] LABS: INR 1.9 (<1.2); Prothrombin Time 18.5 sec (9.0-12.0)
[2023-05-31] MEDS: IPRATROPIUM-ALBUTEROL 3 ML NEB INHALATION SCH ×3 (08:33→21:12)
[2023-05-31] MEDS: BUDESONIDE 0.5 MG/2 ML NEBU INHALATION SCH ×2 (08:33→21:11)
[2023-05-31 09:30] LABS: Hepatitis B Surface AB- Quant 3.5 mIU/mL
[2023-05-31] MEDS: FERROUS SULFATE 325 MG TAB PO SCH (10:01)
[2023-05-31] MEDS: TAMSULOSIN 0.4 MG CAP.ER.24H PO SCH (10:01)
[2023-05-31] MEDS: MULTIVITAMINS, THERA 1 EACH TAB PO SCH (10:01)
[2023-05-31] MEDS: ASPIRIN 81 MG PO SCH (10:01)
[2023-05-31] MEDS: AMIODARONE 100 MG TAB PO SCH (10:02)
[2023-05-31] MEDS: TORSEMIDE 20 MG TAB PO SCH (10:09)
[2023-05-31 10:46] LABS: Hepatitis B Surface Antigen Nonreactive
--- NOTE | 2023-05-31 15:41 | P.PN ---
Subjective Patient is seen in follow-up for acute kidney injury on chronic kidney disease. Started on hemodialysis 05/30/2023. Tolerated about 1 L ultrafiltration yesterday. Feels weak. Vital signs are stable. General: No acute distress. HEENT: Head exam is unremarkable. On nasal cannula. LUNGS: Scattered rhonchi. HEART: Rate and Rhythm are regular. ABDOMEN: Nontender. EXTREMITITES: Lower extremities wrapped. 1+ edema. Objective - Vital Signs Vital signs: Vital Signs Temp 97.9 F 05/31/23 08:16 Pulse 83 05/31/23 13:26 Resp 18 05/31/23 08:16 BP 101/53 05/31/23 13:26 Pulse Ox 96 05/31/23 08:33 FiO2 Intake & Output 05/30/23 05/31/23 05/31/23 18:59 06:59 18:59 Intake Total 25 400 Output Total 480 1025 Balance -455 -625 Weight 69.3 kg Intake: IV 25 Hemodialysis 400 Output: Urine 480 125 Hemodialysis 900 Other: Voiding Method Urinal Urinal # Voids 5 - Labs CBC & Chem 7: 05/28/23 06:55 05/30/23 07:16 Labs: Abnormal Lab Results - Last 24 Hours (Table) 05/31/23 Range/Units 06:54 PT 18.5 H (9.0-12.0) sec INR 1.9 H (<1.2) Microbiology - Last 24 Hours (Table) 05/25/23 11:16 Blood Culture - Final Blood 05/25/23 11:16 Blood Culture - Final Blood Assessment and Plan Plan: Assessment: 1. Acute kidney injury secondary to ATN secondary to cardiorenal syndrome. Due to worsening renal function and volume overload, started on hemodialysis 05/30/2023. Tunneled femoral catheter was placed 05/30/2023. No hydronephrosis noted on CT done in March 2023. UA benign. 2. Chronic kidney disease stage IV secondary to nephrosclerosis with baseline creatinine in the range of 2.6-3. 3. Acute on chronic systolic CHF with ejection fraction of 25% with moderate to severe mitral regurgitation, moderate aortic and tricuspid regurgitation. 4. Volume overload. 5. Chronic kidney disease mineral bone disease maintained on calcitriol. 6. Lower extremity cellulitis on antibiotics. Plan: Second treatment of hemodialysis today and third treatment tomorrow. Stop IV Lasix. Stop metolazone. Add oral torsemide. Low-salt diet and 1200 mL fluid restriction. Bladder scans have been negative for urinary retention. Avoid nephrotoxins. Continue to monitor renal function and urine output. Phosphorus level 3.8 dated 05/31/2023. Maintain midodrine.
[2023-05-31] MEDS ORDERED: WARFARIN 2.5 MG TAB PO ONE (18:00)
[2023-05-31] MEDS: SODIUM CHLORIDE 0.9% 1,000 ML IV SCH (21:07)
--- NOTE | 2023-06-01 02:09 | PN ---
PROGRESS NOTE SUBJECTIVE: He had dialysis last night. He has had some orthostatic hypotension today with dizziness getting out of bed, status post dialysis, so he got 500 mL of fluid removed. OBJECTIVE: CARDIOVASCULAR: S1, S2. LUNGS: Transmitted upper sounds. HEMATOLOGY: Negative for Homans. PSYCH: Fair mood and affect. OPHTHALMOLOGIC: Pupils equal, round, reactive to light and accommodation. NEUROLOGIC: Cranial nerves intact. EXTREMITIES: Cellulitis of the legs is much better. Status post dialysis, hypertension. Continue current treatment. Follow up in next 24 to 48 hours. PROGNOSIS: Guarded. Please see further orders. MMODL / IJN: [id number] /
[2023-06-01 05:56] LABS: INR 1.7 (<1.2); Prothrombin Time 16.6 sec (9.0-12.0)
[2023-06-01] MEDS: MIDODRINE 5 MG TAB PO SCH ×3 (06:01→18:25)
[2023-06-01] MEDS: LEVOTHYROXINE 100 MCG TAB PO SCH (06:02)
[2023-06-01] MEDS: TAMSULOSIN 0.4 MG CAP.ER.24H PO SCH (08:17)
[2023-06-01] MEDS: ASPIRIN 81 MG PO SCH (08:17)
[2023-06-01] MEDS: FERROUS SULFATE 325 MG TAB PO SCH (08:17)
[2023-06-01] MEDS: TORSEMIDE 20 MG TAB PO SCH (08:18)
[2023-06-01] MEDS: MULTIVITAMINS, THERA 1 EACH TAB PO SCH (08:18)
[2023-06-01] MEDS: AMIODARONE 100 MG TAB PO SCH (08:18)
[2023-06-01] MEDS: IPRATROPIUM-ALBUTEROL 3 ML NEB INHALATION SCH ×3 (08:52→21:10)
[2023-06-01] MEDS: BUDESONIDE 0.5 MG/2 ML NEBU INHALATION SCH ×2 (08:52→21:10)
--- NOTE | 2023-06-01 11:26 | P.PN ---
Subjective Patient is seen in follow-up for acute kidney injury on chronic kidney disease. Started on hemodialysis 05/30/2023. Tolerated 2 L ultrafiltration yesterday. Feels better today. Family present at bedside. Vital signs are stable. General: No acute distress. HEENT: Head exam is unremarkable. On nasal cannula. LUNGS: Scattered rhonchi. HEART: Rate and Rhythm are regular. ABDOMEN: Nontender. EXTREMITITES: Lower extremities wrapped. 1+ edema. Objective - Vital Signs Vital signs: Vital Signs Temp 97.7 F 06/01/23 07:07 Pulse 76 06/01/23 09:07 Resp 19 06/01/23 07:10 BP 93/53 06/01/23 07:07 Pulse Ox 99 06/01/23 07:07 FiO2 Intake & Output 05/31/23 06/01/23 06/01/23 18:59 06:59 18:59 Intake Total 790 Output Total 2500 Balance -1710 Intake: Intake, IV Titration 50 Amount ceFAZolin 1,000 mg In 50 Sodium Chloride 0.9% 50 ml @ 100 mls/hr IVPB Q12HR [facility] Rx#:[id number] Oral 240 Hemodialysis 500 Output: Urine 200 Hemodialysis 2300 Other: Voiding Method Urinal Urinal Urinal - Labs CBC & Chem 7: 05/28/23 06:55 05/30/23 07:16 Labs: Abnormal Lab Results - Last 24 Hours (Table) 06/01/23 Range/Units 04:29 PT 16.6 H (9.0-12.0) sec INR 1.7 H (<1.2) Assessment and Plan Plan: Assessment: 1. Acute kidney injury secondary to ATN secondary to cardiorenal syndrome. Due to worsening renal function and volume overload, started on hemodialysis 05/30/2023. Tunneled femoral catheter was placed 05/30/2023. No hydronephrosis noted on CT done in March 2023. UA benign. 2. Chronic kidney disease stage IV secondary to nephrosclerosis with baseline creatinine in the range of 2.6-3. 3. Acute on chronic systolic CHF with ejection fraction of 25% with moderate to severe mitral regurgitation, moderate aortic and tricuspid regurgitation. 4. Volume overload. Improving with diuresis and ultrafiltration. 5. Chronic kidney disease mineral bone disease maintained on calcitriol. 6. Lower extremity cellulitis on antibiotics. Plan: Third treatment of hemodialysis today. Plan to hold tomorrow. Maintain torsemide. Low-salt diet and 1200 mL fluid restriction. Bladder scans have been negative for urinary retention. Avoid nephrotoxins. Continue to monitor renal function and urine output. Phosphorus level 3.8 dated 05/31/2023. Maintain midodrine.
[2023-06-01] MEDS ORDERED: MIDODRINE 5 MG TAB PO PRN (14:35)
[2023-06-01 14:37] LABS: Basophils # (A) 0.04 X 10*3/uL (0.00-0.10); Basophils % (A) 0.6 %; Eosinophils # (A) 0.21 X 10*3/uL (0.04-0.35); Eosinophils % (A) 3.2 %; HCT 35.7 % (39.6-50.0); HGB 10.5 d/dL (13.0-17.0); Lymphocytes # (A) 1.21 X 10*3/uL (0.90-5.00); Lymphocytes % (A) 18.7 %; MCHC 29.4 d/dL (32.0-37.0); MCV 88.4 FL (80.0-97.0); Mean Platelet Volume 11.5 FL (9.5-12.2); Monocytes % (A) 9.3 %; NRBC Per 100 WBC 0 X 10*3/uL (0.00-0.01); Neutrophils % (A) 67.9 %; Platelet Count 233 X 10*3/uL (140-440); RBC 4.04 X 10*6/uL (4.40-5.60); RDW 15.9 % (11.5-14.5); WBC 6.48 X 10*3/uL (4.50-10.00)
[2023-06-01] MEDS ORDERED: WARFARIN 2.5 MG TAB PO ONE (18:00)
[2023-06-01] MEDS: SODIUM CHLORIDE 0.9% 1,000 ML IV SCH (20:49)
--- NOTE | 2023-06-02 01:06 | PN ---
PROGRESS NOTE SUBJECTIVE: An 87-year-old white male. He had dialysis 3/4 days. He is feeling better. OBJECTIVE: VITAL SIGNS: Temperature 97.6, O2 is 100% on 3 to 5 L. Blood pressure remains low at 97 over 50s. Respiratory rate 16 to 18, pulse 70s to 80s. CARDIOVASCULAR: S1, S2. LUNGS: Scattered wheeze. Transmitted upper airway sounds. GI: Soft. ENDOCRINE: He was weak and fatigued. HEMATOLOGY: 2+ edema, improving. Negative Homans. Probably we can do aggressive dialysis tomorrow and see if he possibly does not need any more in the future. We will monitor his creatinine. Watch him for orthostatic hypotension. Given midodrine for that. ASSESSMENT AND PLAN: Acute on chronic kidney disease, stage IV, systolic ejection fraction, congestive heart failure, volume overload, chronic kidney disease, cellulitis of the legs, acute kidney injury secondary to acute tubular necrosis, cardiorenal syndrome, fluid overload. No hydronephrosis on CT scan. No urinary retention. Monitor renal function. Maintain midodrine. Prognosis guarded. MMODL / IJN: [id number] /
[2023-06-02 01:54] LABS: ALT 9 U/L (10-49); AST 21 U/L (14-35); Albumin 3.3 d/dL (3.8-4.9); Albumin/Globulin Ratio 1.57 Ratio (1.60-3.17); Alkaline Phosphatase 108 U/L (41-126); BUN/Creat Ratio 19.29 Ratio (12.00-20.00); Blood Urea Nitrogen 46.3 mg/dL (9.0-27.0); Calcium 8.7 mg/dL (8.7-10.3); Carbon Dioxide 25.9 mmol/L (21.6-31.8); Chloride 100 mmol/L (96-109); Globulin 2.1 d/dL (1.6-3.3); Glucose 80 mg/dL (70-110); Magnesium 2.2 mg/dL (1.5-2.4); Sodium 138 mmol/L (135-145); Total Bilirubin 0.4 mg/dL (0.3-1.2); Total Protein 5.4 d/dL (6.2-8.2)
[2023-06-02] MEDS: LEVOTHYROXINE 100 MCG TAB PO SCH (06:30)
[2023-06-02] MEDS: MIDODRINE 5 MG TAB PO SCH ×3 (06:30→17:31)
[2023-06-02] MEDS: IPRATROPIUM-ALBUTEROL 3 ML NEB INHALATION SCH ×3 (08:25→21:14)
[2023-06-02] MEDS: BUDESONIDE 0.5 MG/2 ML NEBU INHALATION SCH ×2 (08:26→21:13)
[2023-06-02 08:29] LABS: INR 1.7 (<1.2); Prothrombin Time 17.3 sec (9.0-12.0)
[2023-06-02] MEDS: FERROUS SULFATE 325 MG TAB PO SCH (09:07)
[2023-06-02] MEDS: ACETAMINOPHEN TAB 325 MG TAB PO PRN (09:07)
[2023-06-02] MEDS: ASPIRIN 81 MG PO SCH (09:07)
[2023-06-02] MEDS: MULTIVITAMINS, THERA 1 EACH TAB PO SCH (09:07)
[2023-06-02] MEDS: AMIODARONE 100 MG TAB PO SCH (09:07)
[2023-06-02] MEDS: TAMSULOSIN 0.4 MG CAP.ER.24H PO SCH (09:07)
[2023-06-02] MEDS: SODIUM CHLORIDE 0.9% 1,000 ML IV SCH (11:18)
[2023-06-02] MEDS: TORSEMIDE 20 MG TAB PO SCH (11:18)
--- NOTE | 2023-06-02 11:42 | P.PN ---
Subjective Patient is seen in follow-up for acute kidney injury on chronic kidney disease. Started on hemodialysis 05/30/2023. Tolerated 1.5 L ultrafiltration yesterday. Resting in bed. No active complaints. Family present at bedside. Vital signs are stable. General: No acute distress. HEENT: Head exam is unremarkable. On nasal cannula. LUNGS: Scattered rhonchi. HEART: Rate and Rhythm are regular. ABDOMEN: Nontender. EXTREMITITES: Lower extremities wrapped. 1+ edema. Objective - Vital Signs Vital signs: Vital Signs Temp 97.8 F 06/02/23 07:04 Pulse 72 06/02/23 08:43 Resp 16 06/02/23 07:04 BP 97/56 06/02/23 07:04 Pulse Ox 100 06/02/23 08:26 FiO2 Intake & Output 06/01/23 06/02/23 06/02/23 18:59 06:59 18:59 Intake Total 840 Output Total 1625 Balance -785 Weight 69.2 kg Intake: Intake, IV Titration 100 Amount Sodium Chloride 0.9% 1, 100 000 ml @ 20 mls/hr IV . Q24H [facility] Rx#:[id number] Oral 240 Hemodialysis 500 Output: Urine 125 Hemodialysis 1500 Other: Voiding Method Urinal Urinal # Voids 2 - Labs CBC & Chem 7: 06/01/23 04:29 06/01/23 04:29 Labs: Abnormal Lab Results - Last 24 Hours (Table) 06/01/23 06/01/23 06/02/23 Range/Units 04:29 04:29 08:05 RBC 4.04 L (4.40-5.60) X 10*6/uL Hgb 10.5 L (13.0-17.0) d/dL Hct 35.7 L (39.6-50.0) % MCH 26.0 L (27.0-32.0) pg MCHC 29.4 L (32.0-37.0) d/dL RDW 15.9 H (11.5-14.5) % PT 17.3 H (9.0-12.0) sec INR 1.7 H (<1.2) Anion Gap 12.10 H (4.00-12.00) mmol/L BUN 46.3 H (9.0-27.0) mg/dL Creatinine 2.4 H (0.6-1.5) mg/dL Est GFR (CKD-EPI) 26 L (>=60) ALT 9 L (10-49) U/L Total Protein 5.4 L (6.2-8.2) d/dL Albumin 3.3 L (3.8-4.9) d/dL Albumin/Globulin Ratio 1.57 L (1.60-3.17) Ratio Assessment and Plan Plan: Assessment: 1. Acute kidney injury secondary to ATN secondary to cardiorenal syndrome. Due to worsening renal function and volume overload, started on hemodialysis 05/30/2023. Tunneled femoral catheter was placed 05/30/2023. No hydronephrosis noted on CT done in March 2023. UA benign. 2. Chronic kidney disease stage IV secondary to nephrosclerosis with baseline creatinine in the range of 2.6-3. 3. Acute on chronic systolic CHF with ejection fraction of 25% with moderate to severe mitral regurgitation, moderate aortic and tricuspid regurgitation. 4. Volume overload. Improving with diuresis and ultrafiltration. 5. Chronic kidney disease mineral bone disease maintained on calcitriol. 6. Lower extremity cellulitis on antibiotics. Plan: Hemodialysis tomorrow. Maintain torsemide. Repeat chest x-ray. Low-salt diet and 1200 mL fluid restriction. Bladder scans have been negative for urinary retention. Avoid nephrotoxins. Continue to monitor renal function and urine output. Phosphorus level 3.8 dated 05/31/2023. Maintain midodrine. shift nurse manager to set up outpatient dialysis.
--- NOTE | 2023-06-02 12:11 | XR ---
EXAMINATION TYPE: XR chest 1V DATE OF EXAM: 06/02/2023 COMPARISON: 05/25/2023 HISTORY: Shortness of breath TECHNIQUE: Single frontal view of the chest is obtained. FINDINGS: The catheter appears to be separate from the Mediport suggesting catheter fracture. Report edly previous exam. Atherosclerotic change aorta. There is a new lobulated density along the left upper lobe pleural-based with small left effusion and consolidation. Coarsened interstitium suggests chronic pulmonary fibrosis. Sternotomy changes are se en in the upper sternotomy wire. Cardiac device noted. IMPRESSION: 1. Left lower lobe consolidation and small effusion with a new pleural-based density along the lung a pex possibly related to loculated fluid. Correlate clinically. 2. There is disruption of the Mediport catheter which appears to be a free floating within the vascul ar system and separate from the hub of the Mediport. Report called to the patient's nurse Shelbi at 12 :06 PM 06/02/2023. 3. Pulmonary fibrosis with left lower lobe infiltrate.
--- NOTE | 2023-06-02 15:50 | PN ---
PROGRESS NOTE HISTORY OF PRESENT ILLNESS: This is an 87-year-old gentleman known to me. I was consulted for placement of a dialysis catheter. This patient has a history of cancer. The patient has a Port-A- Cath placed about 9 years ago on the right side and also the patient has a pacemaker on the left side, so we decided to place a dialysis catheter, right femoral approach, and the patient has been doing well and having dialysis. I was called in today by the nurse that x-ray shows there is a possible dialysis catheter is and is found in the chest at the junction of the superior vena cava-right atrial junction. I came, I reviewed the chart and x-ray. We put a catheter in the right groin which is intact, it has no evidence of dislodging dialysis catheter. The patient had a pacemaker put in, in the past. We see the port and the catheter is in the right vena cava and there were multiple pacemaker wires around it and this has happened almost a year ago because in 2019 this catheter was intact. I have discussed this with Dr. Edu Carrera, the pumpman, he recommended that since the patient has no symptoms and for the past 1 year, he is at very high risk for any surgical intervention because of multiple pacemaker wires around it catheter may be organized since it is there for the past one year. So, I advised to leave it alone. I have discussed with the family and they understand the risks and complications. MMTORIEL / TURNERN: [id number] /
--- NOTE | 2023-06-02 16:35 | P.PN ---
Subjective Progress Note Date: 05/31/23 Principal diagnosis: Bilateral Leg Cellulitis Patient is a 87-year-old male with a past medical history significant for atrial fibrillation coronary artery disease COPD diabetes mellitus heart failure liver disease patient presenting to the hospital 2 days ago for evalu ation of red legs apparently the patient symptom has been going on for a week before presentation to the hospital, patient has been diagnosed with cellulitis started on cefazolin. On today's evaluation that is 05/31/2023, the patient remains to be afebrile, the patient is breathing comfortably on 4 L nasal cannula oxygen patient denies having chest pain , no significant cough , the patient discomfort in the lower extremity has decreased intensity and the patient has been tolerating his compression dressing. No CBC was done today his white count was 7.8 as of 05/28/2023, no CBC was done today INR is 1.7 blood cultures currently pending Objective - Vital Signs Vital signs: Vital Signs Temp 97.9 F 05/31/23 08:16 Pulse 83 05/31/23 13:26 Resp 18 05/31/23 08:16 BP 101/53 05/31/23 13:26 Pulse Ox 96 05/31/23 08:33 FiO2 Intake & Output 05/30/23 05/31/23 05/31/23 18:59 06:59 18:59 Intake Total 25 400 Output Total 480 1025 Balance -455 -625 Weight 69.3 kg Intake: IV 25 Hemodialysis 400 Output: Urine 480 125 Hemodialysis 900 Other: Voiding Method Urinal Urinal # Voids 5 - Exam GENERAL DESCRIPTION: Elderly male lying in bed in no distress RESPIRATORY SYSTEM: Unlabored breathing , decreased breath sounds at bases HEART: S1 S2 regular rate and rhythm ,no loud murmurs ABDOMEN: Soft , no tenderness EXTREMITIES: Bilateral lower extremity are currently wrapped in [place] wrap no drainage on the dressing - Labs CBC & Chem 7: 06/01/23 04:29 06/01/23 04:29 Labs: Abnormal Lab Results - Last 24 Hours (Table) 05/31/23 Range/Units 06:54 PT 18.5 H (9.0-12.0) sec INR 1.9 H (<1.2) Microbiology - Last 24 Hours (Table) 05/25/23 11:16 Blood Culture - Final Blood 05/25/23 11:16 Blood Culture - Final Blood Assessment and Plan (1) Bilateral lower leg cellulitis Current Visit: Yes Status: Acute Code(s): L03.116 - CELLULITIS OF LEFT LOWER LIMB; L03.115 - CELLULITIS OF RIGHT LOWER LIMB SNOMED Code(s): 343256121 Plan: 1patient presented to hospital with redness to the lower extremity also did have significant swelling which is more likely due to the fluid overload in this patient with underlying CHF and renal insufficiency, the patient lower extremity was noted to be significantly cold and the patient did have a history of smoking underlying PAD need to be ruled out and possible component of mild cellulitis. 2patient with renal insufficiency high risk of nephrotoxicity. 3local wound care with Aquacel dressing and mild compression changed every 48 hours 4patient did have a clinical improvement as far as cellulitis to lower extremities concerned, will continue patient on cefazolin and monitor his clinical course closely Dictation was produced using [email or web address] dictation software. please excuse any grammatical, word or spelling errors. Time with Patient: Less than 30
--- NOTE | 2023-06-02 16:37 | P.PN ---
Subjective Progress Note Date: 06/01/23 Principal diagnosis: Bilateral Leg Cellulitis Patient is a 87-year-old male with a past medical history significant for atrial fibrillation coronary artery disease COPD diabetes mellitus heart failure liver disease patient presenting to the hospital 2 days ago for evalu ation of red legs apparently the patient symptom has been going on for a week before presentation to the hospital, patient has been diagnosed with cellulitis started on cefazolin. On today's evaluation that is 06/01/2023, the patient continues to be afebrile, the patient is breathing comfortably on 3 L nasal cannula oxygen, patient denies chest pain did have occasional dry cough , the patient discomfort in the lower extremity has decreased intensity and the patient has been tolerating his compression dressing. No abdominal pain or diarrhea reported Patient did have a hemoglobin of 10.5, white count 6.48 and is 1.7 creatinine is 2.4 Objective - Vital Signs Vital signs: Vital Signs Temp 97.7 F 06/01/23 07:07 Pulse 76 06/01/23 09:07 Resp 19 06/01/23 07:10 BP 93/53 06/01/23 07:07 Pulse Ox 99 06/01/23 07:07 FiO2 Intake & Output 05/31/23 06/01/23 06/01/23 18:59 06:59 18:59 Intake Total 790 Output Total 2500 Balance -1710 Intake: Intake, IV Titration 50 Amount ceFAZolin 1,000 mg In 50 Sodium Chloride 0.9% 50 ml @ 100 mls/hr IVPB Q12HR [facility] Rx#:[id number] Oral 240 Hemodialysis 500 Output: Urine 200 Hemodialysis 2300 Other: Voiding Method Urinal Urinal Urinal - Exam GENERAL DESCRIPTION: Elderly male lying in bed in no distress RESPIRATORY SYSTEM: Unlabored breathing , decreased breath sounds at bases HEART: S1 S2 regular rate and rhythm ,no loud murmurs ABDOMEN: Soft , no tenderness EXTREMITIES: Bilateral lower extremity are currently wrapped in [place] wrap no drainage on the dressing - Labs CBC & Chem 7: 06/01/23 04:29 06/01/23 04:29 Labs: Abnormal Lab Results - Last 24 Hours (Table) 06/01/23 Range/Units 04:29 PT 16.6 H (9.0-12.0) sec INR 1.7 H (<1.2) Assessment and Plan (1) Bilateral lower leg cellulitis Current Visit: Yes Status: Acute Code(s): L03.116 - CELLULITIS OF LEFT LOWER LIMB; L03.115 - CELLULITIS OF RIGHT LOWER LIMB SNOMED Code(s): 115288525 Plan: 1patient presented to hospital with redness to the lower extremity also did have significant swelling which is more likely due to the fluid overload in this patient with underlying CHF and renal insufficiency, the patient lower extremity was noted to be significantly cold and the patient did have a history of smoking underlying PAD need to be ruled out and possible component of mild cellulitis. 2patient with renal insufficiency high risk of nephrotoxicity. 3local wound care with Aquacel dressing and mild compression changed every 48 hours 4patient did have a clinical improvement as far as cellulitis to lower extremities concerned, for the patient is currently being treated with cefazolin and monitor his clinical course closely Dictation was produced using [employer] dictation software. please excuse any gram matical, word or spelling errors. Time with Patient: Less than 30
--- NOTE | 2023-06-02 16:39 | P.PN ---
Subjective Progress Note Date: 06/02/23 Principal diagnosis: Bilateral Leg Cellulitis Patient is a 87-year-old male with a past medical history significant for atrial fibrillation coronary artery disease COPD diabetes mellitus heart failure liver disease patient presenting to the hospital 2 days ago for evalu ation of red legs apparently the patient symptom has been going on for a week before presentation to the hospital, patient has been diagnosed with cellulitis started on cefazolin. On today's evaluation that is 06/02/2023, the patient is afebrile, the patient is breathing comfortably on 3 L nasal cannula oxygen, patient denies chest pain , the patient did have occasional dry cough , the patient denies pain to the lower extremity no nausea no vomiting and no diarrhea Patient did have a hemoglobin of 10.5, white count 6.48 and is 1.7 creatinine is 2.4 as of yesterday, no blood draw today Objective - Vital Signs Vital signs: Vital Signs Temp 98.7 F 06/02/23 13:29 Pulse 82 06/02/23 13:29 Resp 17 06/02/23 13:29 BP 86/44 06/02/23 13:29 Pulse Ox 97 06/02/23 13:29 FiO2 Intake & Output 06/01/23 06/02/23 06/02/23 18:59 06:59 18:59 Intake Total 840 Output Total 1625 Balance -785 Weight 69.2 kg Intake: Intake, IV Titration 100 Amount Sodium Chloride 0.9% 1, 100 000 ml @ 20 mls/hr IV . Q24H [facility] Rx#:[id number] Oral 240 Hemodialysis 500 Output: Urine 125 Hemodialysis 1500 Other: Voiding Method Urinal Urinal # Voids 2 - Exam GENERAL DESCRIPTION: Elderly male lying in bed in no distress RESPIRATORY SYSTEM: Unlabored breathing , decreased breath sounds at bases HEART: S1 S2 regular rate and rhythm ,no loud murmurs ABDOMEN: Soft , no tenderness EXTREMITIES: Bilateral lower extremity are currently wrapped in [place] wrap no drainage on the dressing - Labs CBC & Chem 7: 06/01/23 04:29 06/01/23 04:29 Labs: Abnormal Lab Results - Last 24 Hours (Table) 06/01/23 06/02/23 Range/Units 04:29 08:05 PT 17.3 H (9.0-12.0) sec INR 1.7 H (<1.2) Anion Gap 12.10 H (4.00-12.00) mmol/L BUN 46.3 H (9.0-27.0) mg/dL Creatinine 2.4 H (0.6-1.5) mg/dL Est GFR (CKD-EPI) 26 L (>=60) ALT 9 L (10-49) U/L Total Protein 5.4 L (6.2-8.2) d/dL Albumin 3.3 L (3.8-4.9) d/dL Albumin/Globulin Ratio 1.57 L (1.60-3.17) Ratio Assessment and Plan (1) Bilateral lower leg cellulitis Current Visit: Yes Status: Acute Code(s): L03.116 - CELLULITIS OF LEFT LOWER LIMB; L03.115 - CELLULITIS OF RIGHT LOWER LIMB SNOMED Code(s): 212493797 Plan: 1patient presented to hospital with redness to the lower extremity also did have significant swelling which is more likely due to the fluid overload in this patient with underlying CHF and renal insufficiency, the patient lower extremity was noted to be significantly cold and the patient did have a history of smoking underlying PAD need to be ruled out and possible component of mild cellulitis. 2patient with renal insufficiency high risk of nephrotoxicity. 3local wound care with Aquacel dressing and mild compression changed every 48 hours 4patient did have a clinical improvement as far as cellulitis to lower extremities concerned, 5- patient has received a week of cefazolin, we will switch him over to short course of oral Keflex Dictation was produced using [employer] software. please excuse any grammatical, word or spelling errors. Time with Patient: Less than 30
[2023-06-02] MEDS ORDERED: WARFARIN 3 MG TAB PO ONE (18:00)
[2023-06-02] MEDS: CEPHALEXIN 500 MG CAP PO SCH (20:55)
[2023-06-03] MEDS: LEVOTHYROXINE 100 MCG TAB PO SCH (06:44)
[2023-06-03] MEDS: MIDODRINE 5 MG TAB PO SCH ×3 (06:44→17:13)
[2023-06-03 07:39] LABS: Basophils % (A) 0 %; Eosinophils # (A) 0.2 k/uL (0-0.7); Eosinophils % (A) 3 %; HGB 10.9 gm/dL (13.0-17.5); Hypochromasia Marked; Lymphocytes % (A) 16 %; MCH 26.8 pg (25.0-35.0); MCHC 30.4 g/dL (31.0-37.0); MCV 88.2 fL (80.0-100.0); Mean Platelet Volume 8.8; Monocytes # (A) 0.4 k/uL (0-1.0); Monocytes % (A) 6 %; Neutrophils # (A) 4.6 k/uL (1.3-7.7); Neutrophils % (A) 73 %; Platelet Count 201 k/uL (150-450); RBC 4.08 m/uL (4.30-5.90); WBC 6.4 k/uL (3.8-10.6)
[2023-06-03 07:44] LABS: Prothrombin Time 19.2 sec (9.0-12.0)
[2023-06-03 08:16] LABS: ALT 6 U/L (4-49); AST 19 U/L (17-59); African American GFR (CKD) 24 (>60 ml/min/1.73 sqM); Albumin 2.8 g/dL (3.5-5.0); Albumin/Globulin Ratio 1.1; Alkaline Phosphatase 102 U/L (38-126); Anion Gap 7 mmol/L; Blood Urea Nitrogen 42 mg/dL (9-20); Calcium 8.3 mg/dL (8.4-10.2); Carbon Dioxide 27 mmol/L (22-30); Chloride 101 mmol/L (98-107); Globulin 2.5 g/dL; Glucose 102 mg/dL (74-99); Non-African American GFR(CKD) 21 (>60 ml/min/1.73 sqM); Potassium 4.1 mmol/L (3.5-5.1); Sodium 135 mmol/L (137-145); Total Bilirubin 0.5 mg/dL (0.2-1.3); Total Protein 5.3 g/dL (6.3-8.2)
[2023-06-03] MEDS: IPRATROPIUM-ALBUTEROL 3 ML NEB INHALATION SCH ×3 (08:37→20:10)
[2023-06-03] MEDS: BUDESONIDE 0.5 MG/2 ML NEBU INHALATION SCH ×2 (08:37→20:10)
[2023-06-03] MEDS: AMIODARONE 100 MG TAB PO SCH (09:51)
[2023-06-03] MEDS: FERROUS SULFATE 325 MG TAB PO SCH (09:51)
[2023-06-03] MEDS: MULTIVITAMINS, THERA 1 EACH TAB PO SCH (09:51)
[2023-06-03] MEDS: CEPHALEXIN 500 MG CAP PO SCH ×2 (09:51→20:17)
[2023-06-03] MEDS: ASPIRIN 81 MG PO SCH (09:51)
[2023-06-03] MEDS: TAMSULOSIN 0.4 MG CAP.ER.24H PO SCH (09:51)
[2023-06-03] MEDS: TORSEMIDE 20 MG TAB PO SCH (09:52)
[2023-06-03] MEDS: SODIUM CHLORIDE 0.9% 1,000 ML IV SCH (12:49)
--- NOTE | 2023-06-03 16:11 | P.PN ---
Subjective Progress Note Date: 06/03/23 #1 acute kidney injury on dialysis. Hemodialysis yesterday with 1.5 L of UF. Patient and family refusing dialysis today. Objective - Vital Signs Vital signs: Vital Signs Temp 97.7 F 06/03/23 13:02 Pulse 76 06/03/23 15:30 Resp 17 06/03/23 13:02 BP 92/45 06/03/23 13:02 Pulse Ox 92 L 06/03/23 13:02 FiO2 Intake & Output 06/02/23 06/03/23 06/03/23 18:59 06:59 18:59 Intake Total 1100 Balance 1100 Weight 69.2 kg 67.2 kg Intake: Oral 1100 Other: Voiding Method Urinal Urinal - Exam No acute distress S1-S2 heard Decreased breath sounds Edema - Labs CBC & Chem 7: 06/03/23 07:08 06/03/23 07:08 Labs: Abnormal Lab Results - Last 24 Hours (Table) 06/03/23 06/03/23 06/03/23 Range/Units 07:08 07:08 07:08 RBC 4.08 L (4.30-5.90) m/uL Hgb 10.9 L (13.0-17.5) gm/dL Hct 36.0 L (39.0-53.0) % MCHC 30.4 L (31.0-37.0) g/dL RDW 16.0 H (11.5-15.5) % PT 19.2 H (9.0-12.0) sec INR 2.0 H (<1.2) Sodium 135 L (137-145) mmol/L BUN 42 H (9-20) mg/dL Creatinine 2.66 H (0.66-1.25) mg/dL Glucose 102 H (74-99) mg/dL Calcium 8.3 L (8.4-10.2) mg/dL Total Protein 5.3 L (6.3-8.2) g/dL Albumin 2.8 L (3.5-5.0) g/dL Assessment and Plan Assessment: #1 acute kidney injury oliguric needing dialysis secondary to ATN/CRS. -Baseline creatinine 2.6-3.0 MG per DL. #2 CHF with systolic dysfunction EF of 25% #3 chronic kidney disease stage IV secondary to nephrosclerosis #4 volume overload #5 anemia with chronic kidney disease #6 metabolic bone disease Plan: #1 hemodialysis, plan on Monday. #2 midodrine for hemodynamic support #3 supportive care
--- NOTE | 2023-06-03 16:52 | P.PN ---
Subjective Progress Note Date: 06/03/23 Principal diagnosis: Bilateral Leg Cellulitis Patient is a 87-year-old male with a past medical history significant for atrial fibrillation coronary artery disease COPD diabetes mellitus heart failure liver disease patient presenting to the hospital 2 days ago for evalu ation of red legs apparently the patient symptom has been going on for a week before presentation to the hospital, patient has been diagnosed with cellulitis started on cefazolin. On today's evaluation that is , the patient a remains to befebrile, the patient is breathing comfortably on 3 L nasal cannula oxygen, patient denies chest pain , the padenies any cough or sputum production the patient denies pain to the lower extremity no nausea no vomiting and no diarrhea Patient did have a hemoglobin of 10.5, white count 6.4 and creatinine is 2.66 Objective - Vital Signs Vital signs: Vital Signs Temp 97.7 F 06/03/23 13:02 Pulse 76 06/03/23 15:30 Resp 17 06/03/23 13:02 BP 92/45 06/03/23 13:02 Pulse Ox 92 L 06/03/23 13:02 FiO2 Intake & Output 06/02/23 06/03/23 06/03/23 18:59 06:59 18:59 Intake Total 1100 Balance 1100 Weight 69.2 kg 67.2 kg Intake: Oral 1100 Other: Voiding Method Urinal Urinal - Exam GENERAL DESCRIPTION: Elderly male lying in bed in no distress RESPIRATORY SYSTEM: Unlabored breathing , decreased breath sounds at bases HEART: S1 S2 regular rate and rhythm ,no loud murmurs ABDOMEN: Soft , no tenderness EXTREMITIES: Right lower extremity swelling redness has improved did have superficial ulceration with no slough tissue - Labs CBC & Chem 7: 06/03/23 07:08 06/03/23 07:08 Labs: Abnormal Lab Results - Last 24 Hours (Table) 06/03/23 06/03/23 06/03/23 Range/Units 07:08 07:08 07:08 RBC 4.08 L (4.30-5.90) m/uL Hgb 10.9 L (13.0-17.5) gm/dL Hct 36.0 L (39.0-53.0) % MCHC 30.4 L (31.0-37.0) g/dL RDW 16.0 H (11.5-15.5) % PT 19.2 H (9.0-12.0) sec INR 2.0 H (<1.2) Sodium 135 L (137-145) mmol/L BUN 42 H (9-20) mg/dL Creatinine 2.66 H (0.66-1.25) mg/dL Glucose 102 H (74-99) mg/dL Calcium 8.3 L (8.4-10.2) mg/dL Total Protein 5.3 L (6.3-8.2) g/dL Albumin 2.8 L (3.5-5.0) g/dL Assessment and Plan (1) Bilateral lower leg cellulitis Current Visit: Yes Status: Acute Code(s): L03.116 - CELLULITIS OF LEFT LOWER LIMB; L03.115 - CELLULITIS OF RIGHT LOWER LIMB SNOMED Code(s): 222955291 Plan: 1patient presented to hospital with redness to the lower extremity also did have significant swelling which is more likely due to the fluid overload in this patient with underlying CHF and renal insufficiency, the patient lower extremity was noted to be significantly cold and the patient did have a history of smoking underlying PAD need to be ruled out and possible component of mild cellulitis. 2patient with renal insufficiency high risk of nephrotoxicity. 3local wound care with Aquacel dressing and mild compression changed every 48 hours 4patient did have a clinical improvement as far as cellulitis to lower extremities concerned, and we will continue the patient on oral Keflex at the bedside questions were answered Dictation was produced using [employer] dictation software. please excuse any grammatical, word or spelling errors. Time with Patient: Less than 30
[2023-06-03] MEDS ORDERED: WARFARIN 2.5 MG TAB PO ONE (18:00)
[2023-06-04] MEDS: MIDODRINE 5 MG TAB PO SCH ×3 (06:45→17:33)
[2023-06-04] MEDS: LEVOTHYROXINE 100 MCG TAB PO SCH (06:45)
[2023-06-04 07:39] LABS: INR 2.2 (<1.2); Prothrombin Time 21.2 sec (9.0-12.0)
[2023-06-04] MEDS: TAMSULOSIN 0.4 MG CAP.ER.24H PO SCH (09:30)
[2023-06-04] MEDS: MULTIVITAMINS, THERA 1 EACH TAB PO SCH (09:30)
[2023-06-04] MEDS: ASPIRIN 81 MG PO SCH (09:30)
[2023-06-04] MEDS: CEPHALEXIN 500 MG CAP PO SCH ×2 (09:30→20:05)
[2023-06-04] MEDS: FERROUS SULFATE 325 MG TAB PO SCH (09:30)
[2023-06-04] MEDS: TORSEMIDE 20 MG TAB PO SCH ×2 (09:31→12:07)
[2023-06-04] MEDS: AMIODARONE 100 MG TAB PO SCH (09:31)
[2023-06-04] MEDS: BUDESONIDE 0.5 MG/2 ML NEBU INHALATION SCH ×2 (10:13→21:08)
[2023-06-04] MEDS: IPRATROPIUM-ALBUTEROL 3 ML NEB INHALATION SCH ×3 (10:13→21:08)
--- NOTE | 2023-06-04 12:43 | P.PN ---
Subjective Progress Note Date: 06/04/23 #1 acute kidney injury on dialysis. Hemodialysis on Monday with 1.5 L of UF. Patient and family refused dialysis yesterday. Blood pressures still low, currently asymptomatic Objective - Vital Signs Vital signs: Vital Signs Temp 97.4 F L 06/04/23 07:36 Pulse 72 06/04/23 10:28 Resp 17 06/04/23 07:36 BP 84/41 06/04/23 07:36 Pulse Ox 100 06/04/23 07:36 FiO2 Intake & Output 06/03/23 06/04/23 06/04/23 18:59 06:59 18:59 Output Total 150 Balance -150 Weight 69.127 kg Output: Urine 150 Other: # Voids 2 - Exam No acute distress S1-S2 heard Decreased breath sounds Edema - Labs CBC & Chem 7: 06/03/23 07:08 06/03/23 07:08 Labs: Abnormal Lab Results - Last 24 Hours (Table) 06/04/23 Range/Units 07:02 PT 21.2 H (9.0-12.0) sec INR 2.2 H (<1.2) Assessment and Plan Assessment: #1 acute kidney injury oliguric needing dialysis secondary to ATN/CRS. -Baseline creatinine 2.6-3.0 MG per DL. #2 CHF with systolic dysfunction EF of 25% #3 chronic kidney disease stage IV secondary to nephrosclerosis #4 volume overload #5 anemia with chronic kidney disease #6 metabolic bone disease Plan: #1 hemodialysis, plan on Monday. #2 midodrine for hemodynamic support #3 supportive care
[2023-06-04 13:11] LABS: Basophils % (A) 1 %; Eosinophils # (A) 0.2 k/uL (0-0.7); Eosinophils % (A) 3 %; HCT 35.5 % (39.0-53.0); Hypochromasia Marked; Lymphocytes # (A) 1.3 k/uL (1.0-4.8); Lymphocytes % (A) 17 %; MCH 27.4 pg (25.0-35.0); MCHC 31.1 g/dL (31.0-37.0); MCV 88.2 fL (80.0-100.0); Mean Platelet Volume 9.4; Monocytes # (A) 0.4 k/uL (0-1.0); Monocytes % (A) 6 %; Neutrophils # (A) 5.2 k/uL (1.3-7.7); Neutrophils % (A) 72 %; Platelet Count 197 k/uL (150-450); RBC 4.02 m/uL (4.30-5.90); WBC 7.3 k/uL (3.8-10.6)
[2023-06-04 13:12] LABS: ALT 16 U/L (4-49); AST 21 U/L (17-59); African American GFR (CKD) 21 (>60 ml/min/1.73 sqM); Albumin 2.8 g/dL (3.5-5.0); Albumin/Globulin Ratio 1.1; Alkaline Phosphatase 104 U/L (38-126); Anion Gap 9 mmol/L; Blood Urea Nitrogen 55 mg/dL (9-20); Calcium 8.3 mg/dL (8.4-10.2); Carbon Dioxide 26 mmol/L (22-30); Chloride 99 mmol/L (98-107); Globulin 2.5 g/dL; Glucose 94 mg/dL (74-99); Non-African American GFR(CKD) 18 (>60 ml/min/1.73 sqM); Potassium 4.3 mmol/L (3.5-5.1); Sodium 134 mmol/L (137-145); Total Bilirubin 0.5 mg/dL (0.2-1.3); Total Protein 5.3 g/dL (6.3-8.2)
--- NOTE | 2023-06-04 15:57 | P.PN ---
Subjective Progress Note Date: 06/04/23 Principal diagnosis: Bilateral Leg Cellulitis Patient is a 87-year-old male with a past medical history significant for atrial fibrillation coronary artery disease COPD diabetes mellitus heart failure liver disease patient presenting to the hospital 2 days ago for evalu ation of red legs apparently the patient symptom has been going on for a week before presentation to the hospital, patient has been diagnosed with cellulitis started on cefazolin. On today's evaluation that is 06/04/2023 patient remains to be afebrile, patient is breathing comfortably on 4 L nasal cannula oxygen but denies having any chest pain shortness of breath or cough no nausea vomiting abdominal pain or pain to the lower extremity. Patient did have a hemoglobin of 11.1 white count of 7.3 creatinine 3.05 blood culture has been negative Objective - Vital Signs Vital signs: Vital Signs Temp 97.4 F L 06/04/23 13:40 Pulse 82 06/04/23 15:39 Resp 16 06/04/23 15:39 BP 102/64 06/04/23 13:40 Pulse Ox 97 06/04/23 15:26 FiO2 Intake & Output 06/03/23 06/04/23 06/04/23 18:59 06:59 18:59 Output Total 150 Balance -150 Weight 69.127 kg Output: Urine 150 Other: # Voids 2 - Exam GENERAL DESCRIPTION: Elderly male lying in bed in no distress RESPIRATORY SYSTEM: Unlabored breathing , decreased breath sounds at bases HEART: S1 S2 regular rate and rhythm ,no loud murmurs ABDOMEN: Soft , no tenderness EXTREMITIES: Right lower extremity swelling redness has improved did have superficial ulceration with no slough tissue - Labs CBC & Chem 7: 06/04/23 07:02 06/04/23 07:02 Labs: Abnormal Lab Results - Last 24 Hours (Table) 06/04/23 06/04/23 06/04/23 Range/Units 07:02 07:02 07:02 RBC 4.02 L (4.30-5.90) m/uL Hgb 11.0 L (13.0-17.5) gm/dL Hct 35.5 L (39.0-53.0) % RDW 16.0 H (11.5-15.5) % PT 21.2 H (9.0-12.0) sec INR 2.2 H (<1.2) Sodium 134 L (137-145) mmol/L BUN 55 H (9-20) mg/dL Creatinine 3.05 H (0.66-1.25) mg/dL Calcium 8.3 L (8.4-10.2) mg/dL Total Protein 5.3 L (6.3-8.2) g/dL Albumin 2.8 L (3.5-5.0) g/dL Assessment and Plan (1) Bilateral lower leg cellulitis Current Visit: Yes Status: Acute Code(s): L03.116 - CELLULITIS OF LEFT LOWER LIMB; L03.115 - CELLULITIS OF RIGHT LOWER LIMB SNOMED Code(s): 814278505 Plan: 1patient presented to hospital with redness to the lower extremity also did have significant swelling which is more likely due to the fluid overload in this patient with underlying CHF and renal insufficiency, the patient lower extremity was noted to be significantly cold and the patient did have a history of smoking underlying PAD need to be ruled out and possible component of mild cellulitis. 2patient with renal insufficiency high risk of nephrotoxicity. 3local wound care with Aquacel dressing and mild compression changed every 48 hours 4patient lower extremity wound cellulitis is slowly clinical improvement patient is currently on oral Keflex to continue for about a week and monitor his clinical course closely Dictation was produced using [employer] dictation software. please excuse any grammatical, word or spelling errors.
[2023-06-04] MEDS ORDERED: WARFARIN 2.5 MG TAB PO ONE (18:00)
[2023-06-04] MEDS: ACETAMINOPHEN TAB 325 MG TAB PO PRN (20:06)
[2023-06-04] MEDS: SODIUM CHLORIDE 0.9% 1,000 ML IV SCH (20:12)
[2023-06-05] MEDS: LEVOTHYROXINE 100 MCG TAB PO SCH (06:19)
[2023-06-05] MEDS: MIDODRINE 5 MG TAB PO SCH ×3 (06:19→18:31)
[2023-06-05 07:49] LABS: INR 2.3 (<1.2)
[2023-06-05] MEDS: CEPHALEXIN 500 MG CAP PO SCH ×2 (08:41→20:16)
[2023-06-05] MEDS: AMIODARONE 100 MG TAB PO SCH (08:41)
[2023-06-05] MEDS: TAMSULOSIN 0.4 MG CAP.ER.24H PO SCH (08:41)
[2023-06-05] MEDS: TORSEMIDE 20 MG TAB PO SCH (08:41)
[2023-06-05] MEDS: ASPIRIN 81 MG PO SCH (08:41)
[2023-06-05] MEDS: FERROUS SULFATE 325 MG TAB PO SCH (08:41)
[2023-06-05] MEDS: MULTIVITAMINS, THERA 1 EACH TAB PO SCH (08:41)
[2023-06-05] MEDS: IPRATROPIUM-ALBUTEROL 3 ML NEB INHALATION SCH ×3 (09:08→21:20)
[2023-06-05] MEDS: BUDESONIDE 0.5 MG/2 ML NEBU INHALATION SCH ×2 (09:08→21:20)
[2023-06-05 11:02] LABS: Basophils # (A) 0.04 X 10*3/uL (0.00-0.10); Basophils % (A) 0.6 %; Eosinophils # (A) 0.27 X 10*3/uL (0.04-0.35); Eosinophils % (A) 3.8 %; HCT 35.6 % (39.6-50.0); HGB 10.4 d/dL (13.0-17.0); Lymphocytes # (A) 1.33 X 10*3/uL (0.90-5.00); Lymphocytes % (A) 18.8 %; MCH 25.7 pg (27.0-32.0); MCHC 29.2 d/dL (32.0-37.0); MCV 87.9 FL (80.0-97.0); Mean Platelet Volume 11.5 FL (9.5-12.2); Monocytes # (A) 0.53 X 10*3/uL (0.20-1.00); Monocytes % (A) 7.5 %; NRBC Per 100 WBC 0 X 10*3/uL (0.00-0.01); Neutrophils # (A) 4.87 X 10*3/uL (1.80-7.70); Neutrophils % (A) 68.7 %; Platelet Count 211 X 10*3/uL (140-440); RBC 4.05 X 10*6/uL (4.40-5.60); RDW 15.8 % (11.5-14.5); WBC 7.08 X 10*3/uL (4.50-10.00)
[2023-06-05 11:15] LABS: ALT 10 U/L (10-49); AST 16 U/L (14-35); Albumin 3.3 d/dL (3.8-4.9); Albumin/Globulin Ratio 1.57 Ratio (1.60-3.17); Alkaline Phosphatase 110 U/L (41-126); BUN/Creat Ratio 17.11 Ratio (12.00-20.00); Blood Urea Nitrogen 63.3 mg/dL (9.0-27.0); Calcium 8.9 mg/dL (8.7-10.3); Carbon Dioxide 26.2 mmol/L (21.6-31.8); Chloride 100 mmol/L (96-109); Globulin 2.1 d/dL (1.6-3.3); Glucose 105 mg/dL (70-110); Potassium 4.7 mmol/L (3.5-5.5); Sodium 138 mmol/L (135-145); Total Bilirubin 0.3 mg/dL (0.3-1.2); Total Protein 5.4 d/dL (6.2-8.2)
--- NOTE | 2023-06-05 12:28 | P.PN ---
Subjective patient is seen for follow-up for acute kidney injury. patient has underlying chronic kidney disease. started hemodialysis on 05/30/2023. Currently seen on hemodialysis. Blood pressure on the lower side. Tolerating treatment well. Goal UF of about 1 L. urine output is not accurately charted. Objective - Vital Signs Vital signs: Vital Signs Temp 97.5 F L 06/05/23 07:18 Pulse 89 06/05/23 12:08 Resp 16 06/05/23 07:18 BP 102/60 06/05/23 07:18 Pulse Ox 96 06/05/23 09:11 FiO2 Intake & Output 06/04/23 06/05/23 06/05/23 18:59 06:59 18:59 Output Total 100 Balance -100 Weight 69.127 kg 69.8 kg Output: Urine 100 Other: Voiding Method Urinal # Voids 2 - Exam patient is awake, comfortable, no acute distress Examination of the heart S1 and S2 Examination of the lungs bilateral breath sounds are heard Abdomen is soft nontender Examination of lower extremity shows trace edema bilaterally [employer] exam grossly intact - Labs CBC & Chem 7: 06/05/23 06:56 06/05/23 06:56 Labs: Abnormal Lab Results - Last 24 Hours (Table) 06/04/23 06/04/23 06/05/23 Range/Units 07:02 07:02 06:56 RBC 4.02 L 4.05 L (4.30-5.90) m/uL Hgb 11.0 L 10.4 L (13.0-17.5) gm/dL Hct 35.5 L 35.6 L (39.0-53.0) % MCH 25.7 L (27.0-32.0) pg MCHC 29.2 L (32.0-37.0) d/dL RDW 16.0 H 15.8 H (11.5-15.5) % PT (9.0-12.0) sec INR (<1.2) Sodium 134 L (137-145) mmol/L BUN 55 H (9-20) mg/dL Creatinine 3.05 H (0.66-1.25) mg/dL Est GFR (CKD-EPI) (>=60) Calcium 8.3 L (8.4-10.2) mg/dL Total Protein 5.3 L (6.3-8.2) g/dL Albumin 2.8 L (3.5-5.0) g/dL Albumin/Globulin Ratio (1.60-3.17) Ratio 06/05/23 06/05/23 Range/Units 06:56 06:56 RBC (4.30-5.90) m/uL Hgb (13.0-17.5) gm/dL Hct (39.0-53.0) % MCH (27.0-32.0) pg MCHC (32.0-37.0) d/dL RDW (11.5-15.5) % PT 22.0 H (9.0-12.0) sec INR 2.3 H (<1.2) Sodium (137-145) mmol/L BUN 63.3 H (9-20) mg/dL Creatinine 3.7 H (0.66-1.25) mg/dL Est GFR (CKD-EPI) 15 L (>=60) Calcium (8.4-10.2) mg/dL Total Protein 5.4 L (6.3-8.2) g/dL Albumin 3.3 L (3.5-5.0) g/dL Albumin/Globulin Ratio 1.57 L (1.60-3.17) Ratio Assessment and Plan Assessment: 1. Acute kidney injury nonoliguric mostly cardiorenal. started hemodialysis on 05/30/2023 due to worsening renal function and persistent volume overload. 2. Cardiomyopathy with EF 25%. Ischemic cardiomyopathy 3. Volume overload 4. Paroxysmal A. fib 5. Chronic kidney disease NKF stage IV with baseline creatinine around 2.7-3.1 mg/dL secondary to nephrosclerosis 6. CK D mineral bone disorder maintained on calcitriol. 7. Lower extremity cellulitis maintained on antibiotics Plan: continue with midodrine Hemodialysis on 06/07/2023 continue with Demadex
[2023-06-05] MEDS ORDERED: WARFARIN 2.5 MG TAB PO ONE (18:00)
[2023-06-06] MEDS: MIDODRINE 5 MG TAB PO SCH ×3 (06:28→17:21)
[2023-06-06] MEDS: LEVOTHYROXINE 100 MCG TAB PO SCH (06:28)
[2023-06-06 07:20] LABS: INR 2.5 (<1.2); Prothrombin Time 24.2 sec (9.0-12.0)
[2023-06-06] MEDS: SODIUM CHLORIDE 0.9% 1,000 ML IV SCH ×2 (08:11→11:22)
[2023-06-06] MEDS: MULTIVITAMINS, THERA 1 EACH TAB PO SCH (08:34)
[2023-06-06] MEDS: TORSEMIDE 20 MG TAB PO SCH (08:34)
[2023-06-06] MEDS: AMIODARONE 100 MG TAB PO SCH (08:34)
[2023-06-06] MEDS: FERROUS SULFATE 325 MG TAB PO SCH (08:34)
[2023-06-06] MEDS: ASPIRIN 81 MG PO SCH (08:34)
[2023-06-06] MEDS: CEPHALEXIN 500 MG CAP PO SCH ×2 (08:34→21:45)
[2023-06-06] MEDS: TAMSULOSIN 0.4 MG CAP.ER.24H PO SCH (08:34)
[2023-06-06] MEDS: BUDESONIDE 0.5 MG/2 ML NEBU INHALATION SCH ×2 (08:40→21:19)
[2023-06-06] MEDS: IPRATROPIUM-ALBUTEROL 3 ML NEB INHALATION SCH ×3 (08:40→21:19)
--- NOTE | 2023-06-06 11:06 | P.PN ---
Subjective patient is seen for follow-up for acute kidney injury. patient has underlying chronic kidney disease. started hemodialysis on 05/30/2023. Status post hemodialysis yesterday with UF of 1.3 L. Urine output remains low. It is not accurately charted. No significant complaints today. Objective - Vital Signs Vital signs: Vital Signs Temp 98.3 F 06/06/23 07:04 Pulse 80 06/06/23 08:55 Resp 17 06/06/23 07:04 BP 106/65 06/06/23 07:04 Pulse Ox 100 06/06/23 07:04 FiO2 Intake & Output 06/05/23 06/06/23 06/06/23 18:59 06:59 18:59 Intake Total 1020 Output Total 1300 200 Balance -280 -200 Weight 70 kg Intake: Oral 720 Hemodialysis 300 Output: Urine 200 Hemodialysis 1300 Other: Voiding Method Urinal Urinal # Voids 0 2 - Exam patient is awake, comfortable, no acute distress Examination of the heart S1 and S2 Examination of the lungs bilateral breath sounds are heard Abdomen is soft nontender Examination of lower extremity shows 1+ edema bilaterally HR SPECIALIST exam grossly intact - Labs CBC & Chem 7: 06/05/23 06:56 06/05/23 06:56 Labs: Abnormal Lab Results - Last 24 Hours (Table) 06/05/23 06/06/23 Range/Units 06:56 06:25 PT 24.2 H (9.0-12.0) sec INR 2.5 H (<1.2) BUN 63.3 H (9.0-27.0) mg/dL Creatinine 3.7 H (0.6-1.5) mg/dL Est GFR (CKD-EPI) 15 L (>=60) Total Protein 5.4 L (6.2-8.2) d/dL Albumin 3.3 L (3.8-4.9) d/dL Albumin/Globulin Ratio 1.57 L (1.60-3.17) Ratio Assessment and Plan Assessment: 1. Acute kidney injury nonoliguric mostly cardiorenal. started hemodialysis on 05/30/2023 due to worsening renal function and persistent volume overload. No obstruction on computed tomography scan in March 2023. UA is benign. 2. Cardiomyopathy with EF 25%. Ischemic cardiomyopathy 3. Volume overload 4. Paroxysmal A. fib 5. Chronic kidney disease NKF stage IV with baseline creatinine around 2.7-3.1 mg/dL secondary to nephrosclerosis 6. CK D mineral bone disorder maintained on calcitriol. 7. Lower extremity cellulitis maintained on antibiotics 8. Acute on chronic systolic CHF with ejection fraction 25% with moderate to severe mitral regurgitation and moderate aortic and tricuspid regurgitation Plan: continue with midodrine Hemodialysis on 06/07/2023. We will try to get him back on TTS schedule around time of discharge. continue with Demadex
--- NOTE | 2023-06-06 14:54 | P.PN ---
Subjective Progress Note Date: 06/05/23 Principal diagnosis: Bilateral Leg Cellulitis Patient is a 87-year-old male with a past medical history significant for atrial fibrillation coronary artery disease COPD diabetes mellitus heart failure liver disease patient presenting to the hospital 2 days ago for evalu ation of red legs apparently the patient symptom has been going on for a week before presentation to the hospital, patient has been diagnosed with cellulitis started on cefazolin. On today's evaluation that is 06/05/2023 patient continues to be afebrile, patient is breathing comfortably on 4 L nasal cannula oxygen, the patient denies having any chest pain shortness of breath or cough no nausea vomiting abdominal pain or pain to the lower extremity. Patient did have a hemoglobin of 10.4 white count of 7.08 creatinine 3.7 blood culture has been negative Objective - Vital Signs Vital signs: Vital Signs Temp 97.5 F L 06/05/23 07:18 Pulse 89 06/05/23 12:08 Resp 16 06/05/23 07:18 BP 102/60 06/05/23 07:18 Pulse Ox 96 06/05/23 09:11 FiO2 Intake & Output 06/04/23 06/05/23 06/05/23 18:59 06:59 18:59 Output Total 100 Balance -100 Weight 69.127 kg 69.8 kg Output: Urine 100 Other: Voiding Method Urinal # Voids 2 - Exam GENERAL DESCRIPTION: Elderly male lying in bed in no distress RESPIRATORY SYSTEM: Unlabored breathing , decreased breath sounds at bases HEART: S1 S2 regular rate and rhythm ,no loud murmurs ABDOMEN: Soft , no tenderness EXTREMITIES: Right lower extremity swelling redness has improved did have sup erficial ulceration with no slough tissue - Labs CBC & Chem 7: 06/05/23 06:56 06/05/23 06:56 Labs: Abnormal Lab Results - Last 24 Hours (Table) 06/04/23 06/04/23 06/05/23 Range/Units 07:02 07:02 06:56 RBC 4.02 L 4.05 L (4.30-5.90) m/uL Hgb 11.0 L 10.4 L (13.0-17.5) gm/dL Hct 35.5 L 35.6 L (39.0-53.0) % MCH 25.7 L (27.0-32.0) pg MCHC 29.2 L (32.0-37.0) d/dL RDW 16.0 H 15.8 H (11.5-15.5) % PT (9.0-12.0) sec INR (<1.2) Sodium 134 L (137-145) mmol/L BUN 55 H (9-20) mg/dL Creatinine 3.05 H (0.66-1.25) mg/dL Est GFR (CKD-EPI) (>=60) Calcium 8.3 L (8.4-10.2) mg/dL Total Protein 5.3 L (6.3-8.2) g/dL Albumin 2.8 L (3.5-5.0) g/dL Albumin/Globulin Ratio (1.60-3.17) Ratio 06/05/23 06/05/23 Range/Units 06:56 06:56 RBC (4.30-5.90) m/uL Hgb (13.0-17.5) gm/dL Hct (39.0-53.0) % MCH (27.0-32.0) pg MCHC (32.0-37.0) d/dL RDW (11.5-15.5) % PT 22.0 H (9.0-12.0) sec INR 2.3 H (<1.2) Sodium (137-145) mmol/L BUN 63.3 H (9-20) mg/dL Creatinine 3.7 H (0.66-1.25) mg/dL Est GFR (CKD-EPI) 15 L (>=60) Calcium (8.4-10.2) mg/dL Total Protein 5.4 L (6.3-8.2) g/dL Albumin 3.3 L (3.5-5.0) g/dL Albumin/Globulin Ratio 1.57 L (1.60-3.17) Ratio Assessment and Plan (1) Bilateral lower leg cellulitis Current Visit: Yes Status: Acute Code(s): L03.116 - CELLULITIS OF LEFT LOWER LIMB; L03.115 - CELLULITIS OF RIGHT LOWER LIMB SNOMED Code(s): 960797221 Plan: 1patient presented to hospital with redness to the lower extremity also did have significant swelling which is more likely due to the fluid overload in this patient with underlying CHF and renal insufficiency, the patient lower extremity was noted to be significantly cold and the patient did have a history of smoking underlying PAD need to be ruled out and possible component of mild cellulitis. 2patient with renal insufficiency high risk of nephrotoxicity. 3local wound care with Aquacel dressing changed every 48 hours 4patient has shown improvement as far as lower extremity wound cellulitis , patient is currently on oral Keflex to continue and monitor his clinical course closely Dictation was produced using [employer] dictation software. please excuse any grammatical, word or spelling errors. Time with Patient: Less than 30
--- NOTE | 2023-06-06 14:55 | P.PN ---
Subjective Progress Note Date: 06/06/23 Principal diagnosis: Bilateral Leg Cellulitis Patient is a 87-year-old male with a past medical history significant for atrial fibrillation coronary artery disease COPD diabetes mellitus heart failure liver disease patient presenting to the hospital 2 days ago for evalu ation of red legs apparently the patient symptom has been going on for a week before presentation to the hospital, patient has been diagnosed with cellulitis started on cefazolin. On today's evaluation that is 06/06/2023 patient denies any fever or any chills, patient is breathing comfortably on 4 L nasal cannula oxygen, the patient denies having any chest pain shortness of breath or cough no nausea vomiting abdominal pain or pain to the lower extremity. No new symptoms Patient did have a hemoglobin of 10.4 white count of 7.08 creatinine 3.7 as of 06/05/2023 no blood drawn today, blood culture has been negative Objective - Vital Signs Vital signs: Vital Signs Temp 98.3 F 06/06/23 07:04 Pulse 80 06/06/23 12:18 Resp 17 06/06/23 07:04 BP 106/65 06/06/23 07:04 Pulse Ox 100 06/06/23 07:04 FiO2 Intake & Output 06/05/23 06/06/23 06/06/23 18:59 06:59 18:59 Intake Total 1020 Output Total 1300 200 Balance -280 -200 Weight 70 kg Intake: Oral 720 Hemodialysis 300 Output: Urine 200 Hemodialysis 1300 Other: Voiding Method Urinal Urinal # Voids 0 2 - Exam GENERAL DESCRIPTION: Elderly male lying in bed in no distress RESPIRATORY SYSTEM: Unlabored breathing , decreased breath sounds at bases HEART: S1 S2 regular rate and rhythm ,no loud murmurs ABDOMEN: Soft , no tenderness EXTREMITIES: Right lower extremity swelling redness has improved did have superficial ulceration with no slough tissue - Labs CBC & Chem 7: 06/05/23 06:56 06/05/23 06:56 Labs: Abnormal Lab Results - Last 24 Hours (Table) 06/06/23 Range/Units 06:25 PT 24.2 H (9.0-12.0) sec INR 2.5 H (<1.2) Assessment and Plan (1) Bilateral lower leg cellulitis Current Visit: Yes Status: Acute Code(s): L03.116 - CELLULITIS OF LEFT LOWER LIMB; L03.115 - CELLULITIS OF RIGHT LOWER LIMB SNOMED Code(s): 699366666 Plan: 1patient presented to hospital with redness to the lower extremity also did have significant swelling which is more likely due to the fluid overload in this patient with underlying CHF and renal insufficiency, the patient lower extremity was noted to be significantly cold and the patient did have a history of smoking underlying PAD need to be ruled out and possible component of mild cellulitis. 2patient to continue local wound care with Aquacel dressing changed every 48 hours 3patient has shown improvement as far as lower extremity wound cellulitis is concerned 4- patient to continue with oral Keflex and monitor his clinical course closely Dictation was produced using [employer] dictation software. please excuse any grammatical, word or spelling errors. Time with Patient: Less than 30
[2023-06-06] MEDS ORDERED: WARFARIN 1.25 MG TAB PO ONE (18:00)
[2023-06-07] MEDS: MIDODRINE 5 MG TAB PO SCH ×2 (06:18→09:57)
[2023-06-07] MEDS: LEVOTHYROXINE 100 MCG TAB PO SCH (06:18)
[2023-06-07 07:29] LABS: Basophils % (A) 1 %; Eosinophils # (A) 0.1 k/uL (0-0.7); Eosinophils % (A) 2 %; HCT 36.2 % (39.0-53.0); HGB 10.8 gm/dL (13.0-17.5); Hypochromasia Marked; Lymphocytes # (A) 1.1 k/uL (1.0-4.8); Lymphocytes % (A) 18 %; MCH 26.1 pg (25.0-35.0); MCHC 29.8 g/dL (31.0-37.0); MCV 87.7 fL (80.0-100.0); Mean Platelet Volume 8.2; Monocytes # (A) 0.3 k/uL (0-1.0); Monocytes % (A) 5 %; Neutrophils # (A) 4.5 k/uL (1.3-7.7); Neutrophils % (A) 73 %; Platelet Count 204 k/uL (150-450); RBC 4.13 m/uL (4.30-5.90); RDW 15.7 % (11.5-15.5); WBC 6.2 k/uL (3.8-10.6)
[2023-06-07 07:33] LABS: INR 2.5 (<1.2); Prothrombin Time 24.8 sec (9.0-12.0)
[2023-06-07] MEDS: BUDESONIDE 0.5 MG/2 ML NEBU INHALATION SCH (07:57)
[2023-06-07] MEDS: IPRATROPIUM-ALBUTEROL 3 ML NEB INHALATION SCH ×2 (07:57→15:26)
[2023-06-07 07:58] LABS: ALT 10 U/L (4-49); AST 29 U/L (17-59); African American GFR (CKD) 20 (>60 ml/min/1.73 sqM); Albumin 3.1 g/dL (3.5-5.0); Albumin/Globulin Ratio 1.2; Alkaline Phosphatase 115 U/L (38-126); Anion Gap 7 mmol/L; Blood Urea Nitrogen 58 mg/dL (9-20); Calcium 8.6 mg/dL (8.4-10.2); Carbon Dioxide 28 mmol/L (22-30); Chloride 99 mmol/L (98-107); Globulin 2.6 g/dL; Glucose 87 mg/dL (74-99); Non-African American GFR(CKD) 18 (>60 ml/min/1.73 sqM); Potassium 4.9 mmol/L (3.5-5.1); Sodium 134 mmol/L (137-145); Total Bilirubin 0.6 mg/dL (0.2-1.3); Total Protein 5.7 g/dL (6.3-8.2)
[2023-06-07] MEDS: ASPIRIN 81 MG PO SCH (08:04)
[2023-06-07] MEDS: AMIODARONE 100 MG TAB PO SCH (08:04)
[2023-06-07] MEDS: MULTIVITAMINS, THERA 1 EACH TAB PO SCH (08:04)
[2023-06-07] MEDS: CEPHALEXIN 500 MG CAP PO SCH (08:04)
[2023-06-07] MEDS: FERROUS SULFATE 325 MG TAB PO SCH (08:04)
[2023-06-07] MEDS: TAMSULOSIN 0.4 MG CAP.ER.24H PO SCH (08:04)
[2023-06-07] MEDS: TORSEMIDE 20 MG TAB PO SCH (08:05)
[2023-06-07 11:23] VITALS: BMI 22.1
--- NOTE | 2023-06-07 11:43 | P.PN ---
Subjective patient is seen for follow-up for acute kidney injury. patient has underlying chronic kidney disease. started hemodialysis on 05/30/2023. Patient is currently seen on hemodialysis. Tolerating treatment fairly okay. Blood pressure was low and patient received an extra dose of midodrine. Goal UF of about 1 L. No significant complaints today. Objective - Vital Signs Vital signs: Vital Signs Temp 97.9 F 06/07/23 07:05 Pulse 85 06/07/23 08:12 Resp 16 06/07/23 07:05 BP 108/63 06/07/23 07:05 Pulse Ox 95 06/07/23 07:05 FiO2 Intake & Output 06/06/23 06/07/23 06/07/23 18:59 06:59 18:59 Intake Total 160 Output Total 125 Balance 160 -125 Weight 70 kg Intake: Intake, IV Titration 160 Amount Sodium Chloride 0.9% 1, 160 000 ml @ 20 mls/hr IV . Q24H [facility] Rx#:[id number] Output: Urine 125 Other: Voiding Method Urinal - Exam patient is awake, comfortable, no acute distress Examination of the heart S1 and S2 Examination of the lungs bilateral breath sounds are heard Abdomen is soft nontender Examination of lower extremity shows 1+ edema bilaterally [employer] exam grossly intact - Labs CBC & Chem 7: 06/07/23 06:50 06/07/23 06:50 Labs: Abnormal Lab Results - Last 24 Hours (Table) 06/07/23 06/07/23 06/07/23 Range/Units 06:50 06:50 06:50 RBC 4.13 L (4.30-5.90) m/uL Hgb 10.8 L (13.0-17.5) gm/dL Hct 36.2 L (39.0-53.0) % MCHC 29.8 L (31.0-37.0) g/dL RDW 15.7 H (11.5-15.5) % PT 24.8 H (9.0-12.0) sec INR 2.5 H (<1.2) Sodium 134 L (137-145) mmol/L BUN 58 H (9-20) mg/dL Creatinine 3.07 H (0.66-1.25) mg/dL Total Protein 5.7 L (6.3-8.2) g/dL Albumin 3.1 L (3.5-5.0) g/dL Assessment and Plan Assessment: 1. Acute kidney injury nonoliguric mostly cardiorenal. started hemodialysis on 05/30/2023 due to worsening renal function and persistent volume overload. No obstruction on computed tomography scan in March 2023. UA is benign. 24-hour urine output currently documented at about 200 mL 2. Cardiomyopathy with EF 25%. Ischemic cardiomyopathy 3. Volume overload 4. Paroxysmal A. fib 5. Chronic kidney disease NKF stage IV with baseline creatinine around 2.7-3.1 mg/dL secondary to nephrosclerosis 6. CK D mineral bone disorder maintained on calcitriol. 7. Lower extremity cellulitis maintained on antibiotics 8. Acute on chronic systolic CHF with ejection fraction 25% with moderate to severe mitral regurgitation and moderate aortic and tricuspid regurgitation Plan: continue with midodrine Hemodialysis today. We will try to get him back on TTS schedule around time of discharge. continue with Demadex
--- NOTE | 2023-06-07 12:44 | P.PN ---
Subjective Progress Note Date: 06/07/23 Principal diagnosis: Bilateral Leg Cellulitis Patient is a 87-year-old male with a past medical history significant for atrial fibrillation coronary artery disease COPD diabetes mellitus heart failure liver disease patient presenting to the hospital 2 days ago for evalu ation of red legs apparently the patient symptom has been going on for a week before presentation to the hospital, patient has been diagnosed with cellulitis started on cefazolin. On today's evaluation that is 06/07/2023 patient remains to be afebrile, patient is breathing comfortably on 4 L nasal cannula oxygen, the patient denies any chest pain shortness of breath or cough no nausea vomiting abdominal pain or pain to the lower extremity. Patient did have a hemoglobin of 10.8 white count of 6.2 creatinine 3.07 , blood culture has been negative Objective - Vital Signs Vital signs: Vital Signs Temp 97.9 F 06/07/23 07:05 Pulse 85 06/07/23 08:12 Resp 16 06/07/23 07:05 BP 108/63 06/07/23 07:05 Pulse Ox 95 06/07/23 07:05 FiO2 Intake & Output 06/06/23 06/07/23 06/07/23 18:59 06:59 18:59 Intake Total 160 Output Total 125 Balance 160 -125 Intake: Intake, IV Titration 160 Amount Sodium Chloride 0.9% 1, 160 000 ml @ 20 mls/hr IV . Q24H [facility] Rx#:[id number] Output: Urine 125 Other: Voiding Method Urinal - Exam GENERAL DESCRIPTION: Elderly male lying in bed in no distress RESPIRATORY SYSTEM: Unlabored breathing , decreased breath sounds at bases HEART: S1 S2 regular rate and rhythm ,no loud murmurs ABDOMEN: Soft , no tenderness EXTREMITIES: Right lower extremity swelling redness has improved did have superficial ulceration with no slough tissue - Labs CBC & Chem 7: 06/07/23 06:50 06/07/23 06:50 Labs: Abnormal Lab Results - Last 24 Hours (Table) 06/07/23 06/07/23 06/07/23 Range/Units 06:50 06:50 06:50 RBC 4.13 L (4.30-5.90) m/uL Hgb 10.8 L (13.0-17.5) gm/dL Hct 36.2 L (39.0-53.0) % MCHC 29.8 L (31.0-37.0) g/dL RDW 15.7 H (11.5-15.5) % PT 24.8 H (9.0-12.0) sec INR 2.5 H (<1.2) Sodium 134 L (137-145) mmol/L BUN 58 H (9-20) mg/dL Creatinine 3.07 H (0.66-1.25) mg/dL Total Protein 5.7 L (6.3-8.2) g/dL Albumin 3.1 L (3.5-5.0) g/dL Assessment and Plan (1) Bilateral lower leg cellulitis Current Visit: Yes Status: Acute Code(s): L03.116 - CELLULITIS OF LEFT LOWER LIMB; L03.115 - CELLULITIS OF RIGHT LOWER LIMB SNOMED Code(s): 499238616 Plan: 1patient presented to hospital with redness to the lower extremity also did have significant swelling which is more likely due to the fluid overload in this patient with underlying CHF and renal insufficiency, the patient lower extremity was noted to be significantly cold and the patient did have a history of smoking underlying PAD need to be ruled out and possible component of mild cellulitis. 2patient to continue local wound care with Aquacel dressing changed every 48 hours 3patient has shown improvement as far as lower extremity wound cellulitis is concerned and we will continue the patient on oral Keflex and monitor his clinical course closely Dictation was produced using [employer] dictation software. please excuse any grammatical, word or spelling errors. Time with Patient: Less than 30
[2023-06-07 13:16] VITALS: RESP 18; TEMP 97.7
--- NOTE | 2023-06-07 15:27 | PN ---
PROGRESS NOTE SUBJECTIVE: Dialysis has helped him. His legs are much less swollen. He is breathing better. He is more happy. His hemoglobin is 10.9. 26 GFR. OBJECTIVE: VITAL SIGNS: Temperature 97.9, O2 saturation 94% on 3 L, pulse 80, respiratory rate 16 to 18, blood pressure is 90s over 50s. LUNGS: Scattered rhonchi and wheeze. CARDIOVASCULAR: S1, S2. GASTROINTESTINAL: Soft. HEMATOLOGY: Negative for Homans. ASSESSMENT: Acute hypoxemic respiratory failure, chronic obstructive pulmonary disease, pulmonary hypertension, diastolic congestive heart failure, end-stage renal disease. We have to figure out whether he is going to continue with dialysis or not long-term. His GFR is 26 at this point. Wait for Dr. Luis's recommendations. He appears to be improved though. His leg swelling has almost gone. He has an abrasion where he has a blister pop on his right leg about 2 x 2 cm, which is improving. It is red. His moods are much better. He is wearing oxygen. He has hypoxemic respiratory failure. Continue current treatment. Prognosis is guarded. Wait for dialysis recommendations. Continue all his home medications. He is doing better. MMODL / IJN: [id number] /
--- NOTE | 2023-06-07 15:27 | PN ---
PROGRESS NOTE SUBJECTIVE: An 87-year-old white male, improving. GFR is 24, little bit decreased from 26 yesterday. He is breathing better. His leg swelling is down. He is 97% on 3 L, pulse 74, blood pressure is low 90s over 50s. He has been getting dialysis often in the hospital. He is supposed to get it again today sometime. He is admitted for orthostatic hypotension. Dr. Luis has gotten him on Demadex 40 mg a day. He is on Coumadin for atrial fibrillation. He is on breathing treatments. Condition is stable. Long-term dialysis is what needs to be decided. His leg swelling has greatly improved. etc., talking more. OBJECTIVE: CARDIOVASCULAR: S1, S2. LUNGS: Mild wheeze and rhonchi. HEMATOLOGIC: Shows very little edema in his legs over the wound on the right tibia. Prognosis is guarded. Continue current treatment. Long-term dialysis will have to be addressed. Otherwise, he is pretty stable to go home or go to rehab. He is on Keflex for prophylactic antibiotics on his leg infection. MMODL / IJN: [id number] /
--- NOTE | 2023-06-07 15:29 | PN ---
PROGRESS NOTE SUBJECTIVE: An 87-year-old white male. He has had dialysis Monday, but he has not had it for 2 days now. His last GFR was 26 to 24. We are going to as his blood pressure is severely low. Monitor his blood pressures and see if his kidney function stays up prior to treatment. He has treatment for, has resolved. His renal function is in the mid 20s. He remains on his breathing treatments, his thyroid medicines, midodrine for orthostatic hypotension. He is feeling much better. We will get PT/OT involved. OBJECTIVE: CARDIOVASCULAR: S1, S2. LUNGS: Decreased breath sounds. HEMATOLOGY: Negative Homans. PSYCH: Fair mood and affect. NEUROLOGIC: Alert and oriented x3. ASSESSMENT: 1. Acute on chronic renal failure, much improved. 2. Congestive heart failure, much improved. 3. Cellulitis of the legs, much improved. We will do dialysis p.r.n. Monitor his orthostatic hypotension. Try to keep his renal function up now on his own. If it continues to decline with GFR, may be do more dialysis because his blood pressure is severely low and his GFR is in the mid 20s. MMODL / IJN: [id number] /
--- NOTE | 2023-06-07 15:29 | PN ---
PROGRESS NOTE SUBJECTIVE: This is an 87-year-old white male, underlying kidney disease. He has been admitted to the hospital for severe leg swelling after a road trip where his medicines were not taken effectively. He has had dialysis about 3 or 4 times. We were going to hold off on dialysis for few days, but has been reordered. Temperature 97.5, pulse 89, respiratory rate 16, blood pressure is 90s over 60s. BUN is 63, creatinine is 3.7, hemoglobin is 10.4. He is mostly cardiorenal, nonoliguric are limited, urine output, persistent volume overload. Ejection fraction 25%, ischemic cardiomyopathy. Paroxysmal atrial fib, chronic kidney disease stage 4. Continue with midodrine, dialysis is on 06/07/2023 he says which is 2 days from now. Continue with Demadex. Hopefully, we can figure this out. If he needs outpatient dialysis, we can send him home and monitor for orthostatic hypotension. He remains on high-dose midodrine at this point. PROGNOSIS: Guarded. BRITTNY / TURNERN: [id number] /
--- NOTE | 2023-06-07 15:31 | PN ---
PROGRESS NOTE SUBJECTIVE: The patient has had dialysis today, weaning to set up outpatient dialysis. Hemoglobin is 10.8, white count 7.0, creatinine is 3.7. OBJECTIVE: VITAL SIGNS: Blood pressure 106/65, O2 of 100%, 2-3 L, temp 98.3, pulse 80, respiratory rate 16 to 18. HEART: S1, S2. LUNGS: Clear. GI: Soft. EXTREMITIES: Mild edema in the legs. LABORATORY DATA: Hemoglobin is 10.4, BUN 63, creatinine 3.7. ASSESSMENT: Acute kidney injury, nonoliguric cardiomyopathy, poor ejection fraction, paroxysmal atrial fibrillation, fluid overload, chronic kidney disease, chronic mineral deficiencies, chronic systolic congestive heart failure. Midodrine, Demadex, and possible discharge after dialysis tomorrow. PLAN: He remains on antibiotics per Dr. Fernandez for the mild cellulitis, Aquacel Silver changes. Waiting for the patient to get set up for possible outpatient hemodialysis at home due to poor urine output and he can possibly go home since this is set up. MMODL / IJN: [id number] /
[2023-06-07] MEDS ORDERED: WARFARIN 2.5 MG TAB PO ONE (18:00)
[2023-06-07 20:30] VITALS: BP 100/55; PULSE 83
== END 2023-06-07 15:57 | disposition home or self-care (01) | DRG 291 ==
LOC: EC 09:35 → 4SSUR 11:45 → OBSVTOIN 05-26 08:59 → 4SSUR 05-31 15:42
PROVIDERS: ADMIT Family Medicine; ATTEND Family Medicine
PROC: 02HV33Z Insertion of Infusion Device into Superior Vena Cava, Percutaneous Approach (ICD-10-PCS; principal; 2023-05-30 08:30)
PROC: 5A1D70Z Performance of Urinary Filtration, Intermittent, Less than 6 Hours Per Day (ICD-10-PCS; 2023-05-31)
DX: I13.0 Hypertensive heart and chronic kidney disease with heart failure and stage 1 through stage 4 chronic kidney disease, or unspecified chronic kidney disease (principal); I50.43 Acute on chronic combined systolic (congestive) and diastolic (congestive) heart failure; J96.01 Acute respiratory failure with hypoxia; N17.0 Acute kidney failure with tubular necrosis; I48.21 Permanent atrial fibrillation; L03.115 Cellulitis of right lower limb; L03.116 Cellulitis of left lower limb; N18.4 Chronic kidney disease, stage 4 (severe); I25.5 Ischemic cardiomyopathy; D63.1 Anemia in chronic kidney disease; E78.5 Hyperlipidemia, unspecified; I08.3 Combined rheumatic disorders of mitral, aortic and tricuspid valves; I25.2 Old myocardial infarction; I27.20 Pulmonary hypertension, unspecified; J44.9 Chronic obstructive pulmonary disease, unspecified; M10.9 Gout, unspecified; E83.9 Disorder of mineral metabolism, unspecified; N40.0 Benign prostatic hyperplasia without lower urinary tract symptoms; R79.1 Abnormal coagulation profile; Z95.1 Presence of aortocoronary bypass graft; Z79.01 Long term (current) use of anticoagulants; Z79.82 Long term (current) use of aspirin; Z79.890 Hormone replacement therapy; Z79.899 Other long term (current) drug therapy; Z85.72 Personal history of non-Hodgkin lymphomas; Z91.148 Patient's other noncompliance with medication regimen for other reason; Z91.158 Patient's noncompliance with renal dialysis for other reason; Z95.810 Presence of automatic (implantable) cardiac defibrillator; Z91.199 Patient's noncompliance with other medical treatment and regimen due to unspecified reason; Z92.21 Personal history of antineoplastic chemotherapy
CPT/HCPCS: 36415; 36556; 71045; 71046; 71250; 76937; 80048; 80053; 81003; 82040; 82533; 83605; 83735; 83880; 84100; 85025; 85610; 85730; 86706; 87040; 87340; 90935; 93005; 94640; 94760; 96365; 96375; 99285

== ENCOUNTER 2023-09-23 17:04 | Emergency (ER) | payer MEDICARE ==
[2023-09-23 17:35] VITALS: TEMP 98.2
[2023-09-23] MEDS ORDERED: SODIUM CHLORIDE 0.9% 500 ML 500 ML IV ONE (17:47)
[2023-09-23 17:57] VITALS: RESP 18
[2023-09-23 18:05] LABS: Anisocytosis Slight; Basophils # (A) 0.1 k/uL (0-0.2); Basophils % (A) 1 %; Eosinophils # (A) 0.1 k/uL (0-0.7); Eosinophils % (A) 2 %; HCT 41.4 % (39.0-53.0); HGB 12.7 gm/dL (13.0-17.5); Hypochromasia Slight; Lymphocytes % (A) 17 %; MCH 28.1 pg (25.0-35.0); MCHC 30.6 g/dL (31.0-37.0); MCV 91.7 fL (80.0-100.0); Mean Platelet Volume 7.5; Monocytes # (A) 0.4 k/uL (0-1.0); Monocytes % (A) 6 %; Neutrophils # (A) 4.3 k/uL (1.3-7.7); Neutrophils % (A) 73 %; Platelet Count 154 k/uL (150-450); RBC 4.51 m/uL (4.30-5.90); RDW 17.5 % (11.5-15.5)
[2023-09-23 18:19] VITALS: PULSE 84
[2023-09-23 18:23] LABS: ALT 14 U/L (4-49); AST 33 U/L (17-59); African American GFR (CKD) 32 (>60 ml/min/1.73 sqM); Albumin 3.6 g/dL (3.5-5.0); Alkaline Phosphatase 111 U/L (38-126); Anion Gap 13 mmol/L; Blood Urea Nitrogen 17 mg/dL (9-20); Calcium 8.5 mg/dL (8.4-10.2); Carbon Dioxide 25 mmol/L (22-30); Chloride 98 mmol/L (98-107); Glucose 96 mg/dL (74-99); Non-African American GFR(CKD) 28 (>60 ml/min/1.73 sqM); Sodium 136 mmol/L (137-145); Total Bilirubin 0.9 mg/dL (0.2-1.3); Total Protein 6.3 g/dL (6.3-8.2)
[2023-09-23 18:38] LABS: Potassium 4.5 mmol/L (3.5-5.1)
[2023-09-23] MEDS ORDERED: MIDODRINE 5 MG TAB PO STA (19:33)
--- NOTE | 2023-09-23 19:33 | ED ---
Recheck HPI - General Chief Complaint: Recheck/Abnormal Lab/Rx Stated Complaint: Low Blood Pressure Time Seen by Provider: 09/23/23 17:20 Source: patient Mode of arrival: wheelchair Limitations: no limitations - History of Present Illness Initial Comments: Ramone is a pleasant 88-year-old male who presents the ER today for evaluation of hypotension. Patient is currently on hemodialysis Monday, he still had some lower extremity edema that was recommended to have a fourth dialysis this week but he declined it. They have been aggressive with fluid removal this week ago due to hypotension had to give him some fluids during dialysis on . Today they noted that his blood pressure was low and they gave him 2 or 3 doses of Midrin which is his normal home medication during dialysis. They advised him to have a wound on his right forearm checked urgent care after he left and when he arrived urgent care to have the wound checked he was found to have a blood pressure 77 over 40s and was advised to come to the ER for evaluation. Upon evaluation here blood pressure was low but not critical patient had no complaints of head and this chest pain or shortness of breath. Reports he is otherwise in his usual state of health. - Related Data Home Medications Medication Instructions Recorded Confirmed Aspirin EC [Ecotrin Low Dose] 81 mg PO DAILY 01/31/15 09/23/23 Levothyroxine Sodium [Synthroid] 100 mcg PO DAILY 06/22/17 09/23/23 Warfarin [Coumadin] 1.25 mg PO SUMOWETHFR 01/28/22 09/23/23 Warfarin [Coumadin] 2.5 mg PO TUSA 01/28/22 09/23/23 calcitrioL [Calcitriol] 0.25 mcg PO TU 01/28/22 09/23/23 Ipratropium-Albuterol Nebulize 3 ml INHALATION RT-TID 05/25/23 09/23/23 [Duoneb 0.5 mg-3 mg/3 ml Soln] Ascorbic Acid [Vitamin C chew] 250 mg PO DAILY 09/23/23 09/23/23 Budesonide [Pulmicort] 1 mg INHALATION RT-BID 09/23/23 09/23/23 Clotrimazole/Betameth Cream 1 applic TOPICAL BID PRN 09/23/23 09/23/23 [Lotrisone] Docusate [Colace] 100 mg PO DAILY 09/23/23 09/23/23 FLUoxetine HCL [PROzac] 10 mg PO DIRECTED 09/23/23 09/23/23 Folic Acid/Vit B Complex and C 0.8 mg PO TUTHSA 09/23/23 09/23/23 [Nephro-Rowan Tablet] Midodrine HCl [ProAmatine] 10 mg PO TID 09/23/23 09/23/23 Multivitamin [Multivitamins Adult 1 tab PO DAILY 09/23/23 09/23/23 Gummies] Omeprazole 40 mg PO DAILY 09/23/23 09/23/23 Sennosides/Docusate Sodium [Senna 1 cap PO TUTHSA@2100 09/23/23 09/23/23 Plus 8.6-50 mg Softgel] Tamsulosin [Flomax] 0.4 mg PO DAILY 09/23/23 09/23/23 allopurinoL [Zyloprim] 100 mg PO DAILY 09/23/23 09/23/23 Previous Rx's Medication Instructions Recorded Torsemide [Demadex] 40 mg PO DAILY 90 Days #90 tab 06/06/23 Allergies Allergy/AdvReac Type Severity Reaction Status Date / Time No Known Allergies Allergy Verified 09/23/23 19:29 Review of Systems ROS Statement: Those systems with pertinent positive or pertinent negative responses have been documented in the HPI. ROS Other: All systems not noted in ROS Statement are negative. 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 Past Anesthesia/Blood Transfusion Reactions: No Reported Reaction Type of Cardiac Device: Permanent Pacemaker, AICD Device Placement Date:: 2004 implant/2018 gen change Past Psychological History: No Psychological Hx Reported Smoking Status: Former smoker Past Alcohol Use History: None Reported Past Drug Use History: None Reported - Past Family History Mother Family Medical History: No Reported History Additional Family Medical History / Comment(s): Mother was healthy and lived to be 86yrs old. Brother(s) Family Medical History: Cancer Father Family Medical History: Cancer Additional Family Medical History / Comment(s): Father had bone cancer. He also had "heart problems." He at the age of 82 yrs. General Exam - General Exam Comments Initial Comments: Physical Exam GENERAL: Medically ill appearing elderly man in no acute distress Patient is well-developed and well-nourished. Patient is nontoxic and well-hydrated and is in no distress. HENT: Normocephalic, Atraumatic. EYES: PERRL, EOMI PULMONARY: Unlabored respirations. CARDIOVASCULAR: RRR Warm and well perfused extremities Vascular access in the right groin ABDOMEN: Non-distended SKIN: No rashes or bruising There is a colloid bandage over a skin tear on the right forearm. There is a fluid bubble under the bandage, there is no tenderness to palpation. : Deferred NEUROLOGIC: Alert and oriented Normal speech MUSCULOSKELETAL: Moving all extremities with no apparent injury 2+ pitting edema bilateral lower extremities PSYCHIATRIC: No SI/HI Limitations: no limitations Course Vital Signs 09/23/23 09/23/23 09/23/23 17:11 17:43 18:15 Temperature 98.2 F Pulse Rate 83 86 84 Respiratory 16 18 18 Rate Blood Pressure 110/75 91/61 106/59 O2 Sat by Pulse 99 96 96 Oximetry 09/23/23 20:02 Temperature Pulse Rate 84 Respiratory 18 Rate Blood Pressure 102/60 O2 Sat by Pulse 98 Oximetry Medical Decision Making - Medical Decision Making Was pt. sent in by a medical professional or institution (, PA, EMERGENCY DEPARTMENT TECHNICIAN, urgent care, hospital, or correction...) When possible be specific @ -No Did you speak to anyone other than the patient for history (EMS, parent, family, police, friend...)? What history was obtained from this source @ -No Did you review nursing and triage notes (agree or disagree)? Why? @ -I reviewed and agree with nursing and triage notes Were old charts reviewed (outside hosp., previous admission, EMS record, old EKG, old radiological studies, urgent care reports/EKG's, correction records)? Report findings @ -No old charts were reviewed Differential Diagnosis (chest pain, altered mental status, abdominal pain women, abdominal pain men, vaginal bleeding, weakness, fever, dyspnea, syncope, headache, dizziness, GI bleed, back pain, seizure, CVA, palpatations, mental health)? @ -dehydration, sepsis EKG interpreted by me (3pts min.). @ -As above X-rays interpreted by me (1pt min.). @ -None done CT interpreted by me (1pt min.). @ -None done U/S interpreted by me (1pt. min.). @ -None done What testing was considered but not performed or refused? (CT, X-rays, U/S, labs)? Why? @ -None What meds were considered but not given or refused? Why? @ -None Did you discuss the management of the patient with other professionals (professionals i.e. , PA, EMERGENCY DEPARTMENT TECHNICIAN, lab, RT, psych nurse, bilingual social worker, lens block gauger, teacher, security officers and guards, case consultant)? Give summary @ -No Was smoking cessation discussed for >3mins.? @ -No Was critical care preformed (if so, how long)? @ -No Were there social determinants of health that impacted care today? How? (Homelessness, low income, unemployed, alcoholism, drug addiction, transportation, low edu. Level, literacy, decrease access to med. care, residential, rehab)? @ -No Was there de-escalation of care discussed even if they declined (Discuss DNR or withdrawal of care, Hospice)? DNR status @ -No What co-morbidities impacted this encounter? (DM, HTN, Smoking, COPD, CAD, Cancer, CVA, ARF, Chemo, Hep., AIDS, mental health diagnosis, sleep apnea, morbid obesity)? @ -None Was patient admitted / discharged? Hospital course, mention meds given and route, prescriptions, significant lab abnormalities, going to OR and other pertinent info. @ Discharge The patient was seen and evaluated history is obtained from patient and family at bedside. Clinically the patient appears intravascularly depleted though he does have some lower extremity edema. Labs in the 250 mL bolus of fluids were ordered. Patient received this his labs are within normal limits for him. There are no clinical findings no actionable finding on labs. Patient reported feeling well. I see no signs of infection the patient received his nighttime dose of Midodrine was discharged home in stable condition. Undiagnosed new problem with uncertain prognosis? @ -No Drug Therapy requiring intensive monitoring for toxicity (Heparin, Nitro, Insulin, Cardizem)? @ -No Were any procedures done? @ -No Diagnosis/symptom? @ Hypotension, dehydration Acute, or Chronic, or Acute on Chronic? @ -default Uncomplicated (without systemic symptoms) or Complicated (systemic symptoms)? @ -default Side effects of treatment? @ -No Exacerbation, Progression, or Severe Exacerbation? @ -No Poses a threat to life or bodily function? How? (Chest pain, [place], [place], pneumonia, PE, COPD, DKA, ARF, appy, cholecystitis, CVA, Diverticulitis, Homicidal, Suicidal, threat to staff... and all critical care pts) @ -No - Lab Data Result diagrams: 09/23/23 17:56 09/23/23 17:56 Lab Results 09/23/23 09/23/23 Range/Units 17:56 17:56 WBC 6.0 (3.8-10.6) k/uL RBC 4.51 (4.30-5.90) m/uL Hgb 12.7 L (13.0-17.5) gm/dL Hct 41.4 (39.0-53.0) % MCV 91.7 (80.0-100.0) fL MCH 28.1 (25.0-35.0) pg MCHC 30.6 L (31.0-37.0) g/dL RDW 17.5 H (11.5-15.5) % Plt Count 154 (150-450) k/uL MPV 7.5 Neutrophils % 73 % Lymphocytes % 17 % Monocytes % 6 % Eosinophils % 2 % Basophils % 1 % Neutrophils # 4.3 (1.3-7.7) k/uL Lymphocytes # 1.0 (1.0-4.8) k/uL Monocytes # 0.4 (0-1.0) k/uL Eosinophils # 0.1 (0-0.7) k/uL Basophils # 0.1 (0-0.2) k/uL Hypochromasia Slight Anisocytosis Slight Sodium 136 L (137-145) mmol/L Potassium 4.5 (3.5-5.1) mmol/L Chloride 98 (98-107) mmol/L Carbon Dioxide 25 (22-30) mmol/L Anion Gap 13 mmol/L BUN 17 (9-20) mg/dL Creatinine 2.08 H (0.66-1.25) mg/dL Est GFR (CKD-EPI)AfAm 32 (>60 ml/min/1.73 sqM) Est GFR (CKD-EPI)NonAf 28 (>60 ml/min/1.73 sqM) Glucose 96 (74-99) mg/dL Calcium 8.5 (8.4-10.2) mg/dL Magnesium 2.0 (1.6-2.3) mg/dL Total Bilirubin 0.9 (0.2-1.3) mg/dL AST 33 (17-59) U/L ALT 14 (4-49) U/L Alkaline Phosphatase 111 (38-126) U/L Total Protein 6.3 (6.3-8.2) g/dL Albumin 3.6 (3.5-5.0) g/dL - EKG Data -: EKG Interpreted by In EKG Comments: EKG interpreted by mn EKG obtained due to hypertension EKG obtained at 1724 rate is 87 rhythm is ventricular paced wide-complex QRS 1 a 70 Q[address] elevations or depressions no evidence of acute infarction. Disposition Clinical Impression: Dehydration Disposition: HOME SELF-CARE Condition: Stable Is patient prescribed a controlled substance at d/c from ED?: No Referrals: Quentin Pedraza MD [Primary Care Provider] - 1-2 days
[2023-09-23 20:09] VITALS: BP 102/60
== END 2023-09-23 20:13 | disposition home or self-care (01) ==
LOC: EC 17:04
DX: I95.9 Hypotension, unspecified (principal); E86.0 Dehydration; E11.9 Type 2 diabetes mellitus without complications; I11.0 Hypertensive heart disease with heart failure; I25.10 Atherosclerotic heart disease of native coronary artery without angina pectoris; I25.2 Old myocardial infarction; I50.9 Heart failure, unspecified; J44.9 Chronic obstructive pulmonary disease, unspecified; I48.91 Unspecified atrial fibrillation; E07.9 Disorder of thyroid, unspecified; Z79.01 Long term (current) use of anticoagulants; Z79.82 Long term (current) use of aspirin; Z79.890 Hormone replacement therapy; Z79.51 Long term (current) use of inhaled steroids; Z79.899 Other long term (current) drug therapy; Z87.891 Personal history of nicotine dependence; Z95.1 Presence of aortocoronary bypass graft; Z95.810 Presence of automatic (implantable) cardiac defibrillator
CPT/HCPCS: 36415; 80053; 83735; 85025; 99285

== ENCOUNTER 2023-11-08 14:11 | Inpatient (IN) | payer MEDICARE ==
--- NOTE | 2023-11-08 16:03 | ED ---
SOB HPI - General Chief Complaint: Shortness of Breath Stated Complaint: SERGIO Time Seen by Provider: 11/08/23 15:34 Source: patient, RN notes reviewed, old records reviewed, Caregiver Mode of arrival: wheelchair Limitations: no limitations - History of Present Illness Initial Comments: This is a 88-year-old male to the ER for evaluation today. Patient presents today for evaluation in regards to CHF shortness of breath and COPD patient does have pulse ox but difficulty keeping oxygen in the patient's nose due to difficulty breathing. Patient complaining of shortness of breath and weakness and was unable to go to dialysis today MD Complaint: shortness of breath, anxiety -: days(s) Radiation: back, jaw Severity: mild Severity scale (1-10): 2 Quality: aching Consistency: constant Improves With: nothing Worsens With: nothing Known History Of: congestive heart failure Context: recent illness Associated Symptoms: denies other symptoms - Related Data Home Medications Medication Instructions Recorded Confirmed Aspirin EC [Ecotrin Low Dose] 81 mg PO DAILY 01/31/15 11/08/23 Levothyroxine Sodium [Synthroid] 100 mcg PO DAILY 06/22/17 11/08/23 Warfarin [Coumadin] 1.25 mg PO SUMOWETHFR 01/28/22 11/08/23 Warfarin [Coumadin] 2.5 mg PO TUSA 01/28/22 11/08/23 Ipratropium-Albuterol Nebulize 3 ml INHALATION RT-TID 05/25/23 11/08/23 [Duoneb 0.5 mg-3 mg/3 ml Soln] Budesonide [Pulmicort] 1 mg INHALATION RT-BID 09/23/23 11/08/23 Clotrimazole/Betameth Cream 1 applic TOPICAL BID PRN 09/23/23 11/08/23 [Lotrisone] Docusate [Colace] 100 mg PO DAILY 09/23/23 11/08/23 FLUoxetine HCL [PROzac] 10 mg PO DAILY 09/23/23 11/08/23 Folic Acid/Vit B Complex and C 0.8 mg PO TUTHSA 09/23/23 11/08/23 [Nephro-Rowan Tablet] Midodrine HCl [ProAmatine] 10 mg PO TID 09/23/23 11/08/23 Multivitamin [Multivitamins Adult 1 tab PO DAILY 09/23/23 11/08/23 Gummies] Omeprazole 40 mg PO DAILY 09/23/23 11/08/23 Sennosides/Docusate Sodium [Senna 1 cap PO TUTHSA@2100 09/23/23 11/08/23 Plus 8.6-50 mg Softgel] Tamsulosin [Flomax] 0.4 mg PO DAILY 09/23/23 11/08/23 allopurinoL [Zyloprim] 100 mg PO DAILY 09/23/23 11/08/23 Torsemide [Demadex] 20 mg PO BID 11/08/23 11/08/23 Allergies Allergy/AdvReac Type Severity Reaction Status Date / Time No Known Allergies Allergy Verified 11/08/23 16:14 Review of Systems ROS Statement: Those systems with pertinent positive or pertinent negative responses have been documented in the HPI. ROS Other: All systems not noted in ROS Statement are negative. 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 Past Anesthesia/Blood Transfusion Reactions: No Reported Reaction Type of Cardiac Device: Permanent Pacemaker, AICD Device Placement Date:: 2004 implant/2017 gen change Past Psychological History: No Psychological Hx Reported Smoking Status: Former smoker Past Alcohol Use History: None Reported Past Drug Use History: None Reported - Past Family History Mother Family Medical History: No Reported History Additional Family Medical History / Comment(s): Mother was healthy and lived to be 86yrs old. Brother(s) Family Medical History: Cancer Father Family Medical History: Cancer Additional Family Medical History / Comment(s): Father had bone cancer. He also had "heart problems." He at the age of 82 yrs. General Exam General appearance: alert, in no apparent distress, anxious, in distress Head exam: Present: atraumatic, normocephalic, normal inspection Eye exam: Present: normal appearance, PERRL, EOMI. Absent: scleral icterus, conjunctival injection, periorbital swelling ENT exam: Present: normal exam, mucous membranes moist Neck exam: Present: normal inspection. Absent: tenderness, meningismus, lymphadenopathy Respiratory exam: Present: respiratory distress, wheezes, accessory muscle use, decreased breath sounds, prolonged expiratory. Absent: rales, rhonchi, stridor Cardiovascular Exam: Present: regular rate, normal rhythm, normal heart sounds. Absent: systolic murmur, diastolic murmur, rubs, gallop, clicks GI/Abdominal exam: Present: soft, normal bowel sounds. Absent: distended, tenderness, guarding, rebound, rigid Extremities exam: Present: normal inspection, full ROM, normal capillary refill. Absent: tenderness, pedal edema, joint swelling, calf tenderness Back exam: Present: normal inspection Neurological exam: Present: alert, oriented X3, CN II-XII intact Psychiatric exam: Present: normal affect, normal mood Skin exam: Present: warm, dry, intact, normal color. Absent: rash Course Vital Signs 11/08/23 11/08/23 11/08/23 15:08 16:00 16:15 Temperature 98.2 F Pulse Rate 79 84 80 Pulse Rate [ Mail Clerk ] Respiratory 38 H 20 Rate Blood Pressure 80/40 98/53 Blood Pressure [Left Arm] O2 Sat by Pulse 90 L 95 Oximetry Fraction of Inspired Oxygen (FIO2) 11/08/23 11/08/23 11/08/23 16:30 16:36 17:00 Temperature Pulse Rate 81 82 78 Pulse Rate [ Mail Clerk ] Respiratory 22 20 Rate Blood Pressure 96/60 104/69 Blood Pressure [Left Arm] O2 Sat by Pulse 96 94 L Oximetry Fraction of Inspired Oxygen (FIO2) 11/08/23 11/08/23 11/08/23 17:30 18:00 18:30 Temperature Pulse Rate 78 80 76 Pulse Rate [ Mail Clerk ] Respiratory 20 22 24 Rate Blood Pressure 110/97 95/54 96/58 Blood Pressure [Left Arm] O2 Sat by Pulse 96 96 96 Oximetry Fraction of Inspired Oxygen (FIO2) 11/08/23 11/08/23 11/08/23 19:00 19:36 20:33 Temperature Pulse Rate 90 82 87 Pulse Rate [ Mail Clerk ] Respiratory 24 18 25 H Rate Blood Pressure 102/60 95/56 99/60 Blood Pressure [Left Arm] O2 Sat by Pulse 94 L 94 L 92 L Oximetry Fraction of Inspired Oxygen (FIO2) 11/08/23 11/08/23 11/08/23 21:36 22:17 23:12 Temperature Pulse Rate 86 79 Pulse Rate [ Mail Clerk ] Respiratory 29 H 21 Rate Blood Pressure 98/63 98/58 Blood Pressure [Left Arm] O2 Sat by Pulse 91 L 94 L 93 L Oximetry Fraction of 40 Inspired Oxygen (FIO2) 11/09/23 11/09/23 11/09/23 00:00 00:05 00:39 Temperature Pulse Rate 96 Pulse Rate [ Mail Clerk ] Respiratory 17 Rate Blood Pressure 99/64 Blood Pressure [Left Arm] O2 Sat by Pulse 97 86 L Oximetry Fraction of 100 Inspired Oxygen (FIO2) 11/09/23 11/09/23 11/09/23 00:45 00:51 01:00 Temperature Pulse Rate 116 H Pulse Rate [ Mail Clerk ] Respiratory 30 H 15 Rate Blood Pressure 112/81 112/81 Blood Pressure [Left Arm] O2 Sat by Pulse 95 97 97 Oximetry Fraction of Inspired Oxygen (FIO2) 11/09/23 11/09/23 11/09/23 01:08 03:00 03:12 Temperature Pulse Rate 87 Pulse Rate [ Mail Clerk ] Respiratory 36 H Rate Blood Pressure 96/72 Blood Pressure [Left Arm] O2 Sat by Pulse 94 L Oximetry Fraction of 50 50 Inspired Oxygen (FIO2) 11/09/23 11/09/23 11/09/23 04:23 04:44 05:00 Temperature 98.8 F Pulse Rate 88 79 84 Pulse Rate [ Mail Clerk ] Respiratory 20 20 21 Rate Blood Pressure 99/60 105/68 116/79 Blood Pressure [Left Arm] O2 Sat by Pulse 96 96 97 Oximetry Fraction of Inspired Oxygen (FIO2) 11/09/23 11/09/23 11/09/23 05:49 06:15 06:46 Temperature Pulse Rate 84 73 87 Pulse Rate [ Mail Clerk ] Respiratory 21 18 18 Rate Blood Pressure 115/69 101/72 112/60 Blood Pressure [Left Arm] O2 Sat by Pulse 95 96 98 Oximetry Fraction of Inspired Oxygen (FIO2) 11/09/23 11/09/23 11/09/23 07:37 08:00 08:10 Temperature 97.5 F L Pulse Rate 82 Pulse Rate [ 82 Mail Clerk ] Respiratory 22 31 H Rate Blood Pressure 103/68 Blood Pressure 114/66 [Left Arm] O2 Sat by Pulse 99 98 Oximetry Fraction of 100 Inspired Oxygen (FIO2) 11/09/23 11/09/23 11/09/23 08:11 08:32 08:33 Temperature Pulse Rate 86 86 Pulse Rate [ Mail Clerk ] Respiratory Rate Blood Pressure Blood Pressure [Left Arm] O2 Sat by Pulse 93 L Oximetry Fraction of Inspired Oxygen (FIO2) 11/09/23 11/09/23 11/09/23 09:00 09:37 09:38 Temperature 97.5 F L Pulse Rate 89 89 Pulse Rate [ Mail Clerk ] Respiratory 28 H 20 Rate Blood Pressure 103/57 86/52 Blood Pressure [Left Arm] O2 Sat by Pulse 87 L 93 L Oximetry Fraction of 50 Inspired Oxygen (FIO2) 11/09/23 11/09/23 11/09/23 10:00 11:00 11:45 Temperature Pulse Rate 89 87 80 Pulse Rate [ Mail Clerk ] Respiratory 24 22 Rate Blood Pressure 97/66 101/58 Blood Pressure [Left Arm] O2 Sat by Pulse 96 96 Oximetry Fraction of Inspired Oxygen (FIO2) 11/09/23 11/09/23 11/09/23 11:46 12:00 12:07 Temperature Pulse Rate 78 84 Pulse Rate [ Mail Clerk ] Respiratory 22 Rate Blood Pressure 106/57 Blood Pressure [Left Arm] O2 Sat by Pulse 97 Oximetry Fraction of 50 Inspired Oxygen (FIO2) 11/09/23 11/09/23 11/09/23 13:00 14:00 14:30 Temperature Pulse Rate 81 79 61 Pulse Rate [ Mail Clerk ] Respiratory 24 24 22 Rate Blood Pressure 101/59 98/60 Blood Pressure [Left Arm] O2 Sat by Pulse 97 98 97 Oximetry Fraction of Inspired Oxygen (FIO2) 11/09/23 11/09/23 11/09/23 15:00 15:58 16:00 Temperature Pulse Rate 84 77 Pulse Rate [ Mail Clerk ] Respiratory 24 22 Rate Blood Pressure 94/58 111/76 Blood Pressure [Left Arm] O2 Sat by Pulse 97 97 98 Oximetry Fraction of Inspired Oxygen (FIO2) 11/09/23 11/09/23 16:12 17:00 Temperature Pulse Rate 77 Pulse Rate [ Mail Clerk ] Respiratory 22 Rate Blood Pressure 118/66 Blood Pressure [Left Arm] O2 Sat by Pulse 96 96 Oximetry Fraction of Inspired Oxygen (FIO2) - Reevaluation(s) Reevaluation #1: 11/08/23 17:48 Medical record is reviewed Reevaluation #2: 11/08/23 17:48 Patient symptoms are improving Reevaluation #3: 11/08/23 17:48 Patient informed of results and questions answered Reevaluation #4: 11/08/23 17:48 Was pt. sent in by a medical professional or institution (, [facility], MARINE PAINTER, urgent care, hospital, or half-way...) When possible be specific @ -no Did you speak to anyone other than the patient for history (EMS, parent, family, police, friend...)? What history was obtained from this source @ -no Did you review nursing and triage notes (agree or disagree)? Why? @ -agree Are old charts reviewed (outside hosp., previous admission, EMS record, old EKG, old radiological studies, urgent care reports/EKG's, half-way records)? Report findings @ -yes Differential Diagnosis (chest pain, altered mental status, abdominal pain women, abdominal pain men, vaginal bleeding, weakness, fever, dyspnea, syncope, headache, dizziness, GI bleed, back pain, seizure, CVA, palpatations, mental health, musculoskeletal)? @ -prior EKG interpreted by me (3pts min.). @ -yes X-rays interpreted by me (1pt min.). @ -yes n difficult for CHF e CT interpreted by me (1pt min.). @ -no U/S interpreted by me (1pt. min.). @ -no What testing was considered but not performed or refused? (CT, X-rays, U/S, labs)? Why? @ -none What meds were considered but not given or refused? Why? @ -none Did you discuss the management of the patient with other professionals (pr ofessionals i.e. [facility] Wolf, MARINE PAINTER, lab, RT, psych nurse, social work professor, gear machine operator general, teacher, county records management officer, director case)? Give summary @ -no Was smoking cessation discussed for >3mins.? @ -no Was critical care preformed (if so, how long)? @ -no Were there social determinants of health that impacted care today? How? (Homelessness, low income, unemployed, alcoholism, drug addiction, transportation, low edu. Level, literacy, decrease access to med. care, custodial, rehab)? @ -none Was there de-escalation of care discussed even if they declined (Discuss DNR or withdrawal of care, Hospice)? DNR status @ -no What co-morbidities impacted this encounter? (DM, HTN, Smoking, COPD, CAD, Cancer, CVA, ARF, Chemo, Hep., AIDS, mental health diagnosis, sleep apnea, morbid obesity)? @ -none Was patient admitted / discharged? Hospital course, mention meds given and route, prescriptions, significant lab abnormalities, going to OR and other pertinent info. @ - 88 male to ER for evaluation of dyspnea shortness of breath with hypoxia he does have COPD and oxygen does have heart failure and low blood pressure. Patient will be admitted for supportive care Admitted Undiagnosed new problem with uncertain prognosis? @ -no Drug Therapy requiring intensive monitoring for toxicity (Heparin, Nitro, Insulin, Cardizem)? @ -no Were any procedures done? @ -no Diagnosis/symptom? @ -CHF, COPD, heart failure and hypoxia Acute, or Chronic, or Acute on Chronic? @ -Acute Uncomplicated (without systemic symptoms) or Complicated (systemic symptoms)? @ -Complicated Side effects of treatment? @ -no Exacerbation, Progression, or Severe Exacerbation? @ -exacerbation Poses a threat to life or bodily function? How? (Chest pain, USA, NM, pneumonia, PE, COPD, DKA, ARF, appy, cholecystitis, CVA, Diverticulitis, Homicidal, Suicidal, threat to staff... and all critical care pts) @ -yes extremes of age and respiratory distress Reevaluation #5: 11/08/23 17:48 Differential Dyspnea: Coronary syndrome, arrhythmia, tamponade, asthma, COPD, pulmonary embolism, pneumonia, pneumothorax, pulmonary effusion, anaphylaxis, diabetic ketoacidosis, flailed chest, pulmonary contusion, diaphragmatic rupture, anemia, neuromuscular, this is not meant to be an all-inclusive list. - Consultations Consultation #1: Spoke with Dr. Castañeda who agrees to admit this patient Medical Decision Making - Medical Decision Making 88 male to ER for evaluation of dyspnea shortness of breath with hypoxia he does have COPD and oxygen does have heart failure and low blood pressure. Patient will be admitted for supportive care - Lab Data Result diagrams: 11/13/23 06:42 11/13/23 06:42 Lab Results 11/08/23 11/08/23 11/08/23 Range/Units 15:44 15:44 15:44 WBC 6.7 (3.8-10.6) k/uL RBC 4.23 L (4.30-5.90) m/uL Hgb 12.7 L (13.0-17.5) gm/dL Hct 39.5 (39.0-53.0) % MCV 93.3 (80.0-100.0) fL MCH 30.1 (25.0-35.0) pg MCHC 32.2 (31.0-37.0) g/dL RDW 15.6 H (11.5-15.5) % Plt Count 155 (150-450) k/uL MPV 8.1 Neutrophils % 80 % Lymphocytes % 12 % Monocytes % 4 % Eosinophils % 1 % Basophils % 1 % Neutrophils # 5.4 (1.3-7.7) k/uL Lymphocytes # 0.8 L (1.0-4.8) k/uL Monocytes # 0.3 (0-1.0) k/uL Eosinophils # 0.1 (0-0.7) k/uL Basophils # 0.1 (0-0.2) k/uL Hypochromasia Slight PT 21.5 H (10.0-12.5) sec INR 2.2 H (<1.2) APTT 31.1 H (22.0-30.0) sec Sodium 137 (137-145) mmol/L Potassium 4.8 (3.5-5.1) mmol/L Chloride 100 (98-107) mmol/L Carbon Dioxide 22 (22-30) mmol/L Anion Gap 15 mmol/L BUN 54 H (9-20) mg/dL Creatinine 5.17 H (0.66-1.25) mg/dL Est GFR (CKD-EPI)AfAm 11 (>60 ml/min/1.73 sqM) Est GFR (CKD-EPI)NonAf 9 (>60 ml/min/1.73 sqM) Glucose 104 H (74-99) mg/dL Calcium 8.6 (8.4-10.2) mg/dL Magnesium 2.1 (1.6-2.3) mg/dL Total Bilirubin 0.9 (0.2-1.3) mg/dL AST 23 (17-59) U/L ALT 15 (4-49) U/L Alkaline Phosphatase 118 (38-126) U/L Troponin I (0.000-0.034) ng/mL NT-Pro-B Natriuret Pep 201525 pg/mL Total Protein 6.2 L (6.3-8.2) g/dL Albumin 3.6 (3.5-5.0) g/dL Influenza Type A (PCR) (Not Detectd) Influenza Type B (PCR) (Not Detectd) RSV (PCR) (Not Detectd) SARS-CoV-2 (PCR) (Not Detectd) 11/08/23 11/08/23 Range/Units 15:44 15:46 WBC (3.8-10.6) k/uL RBC (4.30-5.90) m/uL Hgb (13.0-17.5) gm/dL Hct (39.0-53.0) % MCV (80.0-100.0) fL MCH (25.0-35.0) pg MCHC (31.0-37.0) g/dL RDW (11.5-15.5) % Plt Count (150-450) k/uL MPV Neutrophils % % Lymphocytes % % Monocytes % % Eosinophils % % Basophils % % Neutrophils # (1.3-7.7) k/uL Lymphocytes # (1.0-4.8) k/uL Monocytes # (0-1.0) k/uL Eosinophils # (0-0.7) k/uL Basophils # (0-0.2) k/uL Hypochromasia PT (10.0-12.5) sec INR (<1.2) APTT (22.0-30.0) sec Sodium (137-145) mmol/L Potassium (3.5-5.1) mmol/L Chloride (98-107) mmol/L Carbon Dioxide (22-30) mmol/L Anion Gap mmol/L BUN (9-20) mg/dL Creatinine (0.66-1.25) mg/dL Est GFR (CKD-EPI)AfAm (>60 ml/min/1.73 sqM) Est GFR (CKD-EPI)NonAf (>60 ml/min/1.73 sqM) Glucose (74-99) mg/dL Calcium (8.4-10.2) mg/dL Magnesium (1.6-2.3) mg/dL Total Bilirubin (0.2-1.3) mg/dL AST (17-59) U/L ALT (4-49) U/L Alkaline Phosphatase (38-126) U/L Troponin I 0.017 (0.000-0.034) ng/mL NT-Pro-B Natriuret Pep pg/mL Total Protein (6.3-8.2) g/dL Albumin (3.5-5.0) g/dL Influenza Type A (PCR) Not Detected (Not Detectd) Influenza Type B (PCR) Not Detected (Not Detectd) RSV (PCR) Not Detected (Not Detectd) SARS-CoV-2 (PCR) Not Detected (Not Detectd) - EKG Data -: EKG Interpreted by Me (EKG sinus tachycardia 100 NV 130 QRS 108 QTc 412) EKG shows normal: sinus rhythm (EKG is paced 79 QRS 132 QTc 460) - Radiology Data Radiology results: report reviewed (Chest x-ray is positive for CHF), image reviewed Critical Care Time Critical Care Time: Yes Total Critical Care Time: 31 Disposition Clinical Impression: Weakness generalized, Congestive heart disease, Acute renal failure (ARF), Systolic CHF, acute on chronic, Chronic renal failure, COPD (chronic obstructive pulmonary disease), Hypoxia Disposition: ADMITTED IP TO THIS HOSP Condition: Fair Is patient prescribed a controlled substance at d/c from ED?: No Time of Disposition: 17:30
[2023-11-08 16:14] LABS: Basophils # (A) 0.1 k/uL (0-0.2); Basophils % (A) 1 %; Eosinophils # (A) 0.1 k/uL (0-0.7); Eosinophils % (A) 1 %; HCT 39.5 % (39.0-53.0); HGB 12.7 gm/dL (13.0-17.5); Hypochromasia Slight; Lymphocytes # (A) 0.8 k/uL (1.0-4.8); Lymphocytes % (A) 12 %; MCH 30.1 pg (25.0-35.0); MCHC 32.2 g/dL (31.0-37.0); MCV 93.3 fL (80.0-100.0); Mean Platelet Volume 8.1; Monocytes # (A) 0.3 k/uL (0-1.0); Monocytes % (A) 4 %; Neutrophils # (A) 5.4 k/uL (1.3-7.7); Neutrophils % (A) 80 %; Platelet Count 155 k/uL (150-450); RBC 4.23 m/uL (4.30-5.90); RDW 15.6 % (11.5-15.5); WBC 6.7 k/uL (3.8-10.6)
[2023-11-08] MEDS: IPRATROPIUM-ALBUTEROL 3 ML NEB INHALATION STA (16:14)
[2023-11-08] MEDS: SODIUM CHLORIDE 0.9% 1,000 ML IV STA (16:21)
[2023-11-08] MEDS: FLUTICASONE 50MCG/SPRAY NASAL 16GM EA NOSTRIL ONE (16:23)
[2023-11-08] MEDS: DEXAMETHASONE SOD PHOSPHATE 10 MG/ML 1 ML VIAL IVP STA (16:23)
[2023-11-08 16:32] LABS: ALT 15 U/L (4-49); AST 23 U/L (17-59); African American GFR (CKD) 11 (>60 ml/min/1.73 sqM); Albumin 3.6 g/dL (3.5-5.0); Alkaline Phosphatase 118 U/L (38-126); Anion Gap 15 mmol/L; Blood Urea Nitrogen 54 mg/dL (9-20); Calcium 8.6 mg/dL (8.4-10.2); Carbon Dioxide 22 mmol/L (22-30); Chloride 100 mmol/L (98-107); Glucose 104 mg/dL (74-99); Magnesium 2.1 mg/dL (1.6-2.3); Non-African American GFR(CKD) 9 (>60 ml/min/1.73 sqM); Potassium 4.8 mmol/L (3.5-5.1); Sodium 137 mmol/L (137-145); Total Bilirubin 0.9 mg/dL (0.2-1.3); Total Protein 6.2 g/dL (6.3-8.2)
[2023-11-08 16:38] LABS: INR 2.2 (<1.2); Partial Thromboplastin Time 31.1 sec (22.0-30.0); Prothrombin Time 21.5 sec (10.0-12.5)
--- NOTE | 2023-11-08 17:16 | XR ---
EXAMINATION TYPE: XR chest 2V DATE OF EXAM: 11/08/2023 5:08 PM CLINICAL INDICATION:Male, 88 years old with history of difficulty breathing; [facility] COMPARISON: Chest radiographs from 06/02/2023 TECHNIQUE: XR chest 2V Frontal and lateral views of the chest. FINDINGS: Lungs/Pleura: No evidence of focal consolidation or pneumothorax. Blunting of the costophrenic angles is present. Pulmonary vascularity: Pulmonary vascular congestion. Heart/mediastinum: Cardiomediastinal silhouette is enlarged and stable. Atherosclerotic calcificatio ns are seen in the aorta. Three lead cardiac conduction device overlying the left hemithorax with janis d tips projecting over the right ventricle, right atrium and coronary sinus. Musculoskeletal: No acute osseous pathology. Other findings: None IMPRESSION: Cardiomegaly, pulmonary vascular congestion and bilateral pleural effusions. Correlate with BNP for c ongestive heart failure.
[2023-11-08 17:20] LABS: NT-Pro-B-Type Natriuretic Pept 195000 pg/mL
[2023-11-08] MEDS ORDERED: NALOXONE 0.4 MG/ML 1 ML VIAL IV PRN (17:46)
[2023-11-08] MEDS ORDERED: ONDANSETRON 4 MG/2 ML VIAL IVP PRN (17:46)
[2023-11-08] MEDS: SODIUM CHLORIDE 0.9% 1,000 ML IV SCH (19:16)
[2023-11-08] MEDS: OXYMETAZOLINE 0.05% NASL SPRAY 1 SPRAY BOTTLE NASAL STA (19:16)
[2023-11-09] MEDS: LORazepam 2 MG/ML INJ IV PRN (00:50)
[2023-11-09] MEDS: FUROSEMIDE 10 MG/ML 2 ML VIAL IV SCH (00:54)
[2023-11-09] MEDS: methylPREDNISolone SOD SUCCI 125 MG/2 ML VIAL IV SCH (01:39)
[2023-11-09] MEDS: PIPERACILLIN-TAZOBACTAM 3.375 GM in SODIUM CHLORIDE 0.9% 100 ML IVPB SCH ×2 (01:40→11:40)
--- NOTE | 2023-11-09 02:02 | CT ---
EXAMINATION TYPE: CT chest wo con DATE OF EXAM: 11/09/2023 COMPARISON: Chest CT May 25, 2023 HISTORY: ? ? Pt here with family for eval for sob which has become increasingly worse over the t week. Today pt is saying that he can't breathe. Skin w/p/d. Increased resp effort. Moderate res p distress. O2 15l mask. CT DLP: 311.5 mGycm. Automated Exposure Control for Dose Reduction was Utilized. TECHNIQUE: CT scan of the thorax is performed without IV contrast. FINDINGS: LUNGS: There is small to moderate-sized right pleural effusion which has increased in size from prior CT. There is small left-sided pleural fluid collection which is more prominent in the lung apex rede monstrated similar in appearance to prior. Tiny cystic change in the upper lungs is again seen. Areas of groundglass opacity bilaterally are redemonstrated. Some irregular consolidation in the left lung base is again seen. No pneumothorax seen bilaterally. MEDIASTINUM: Lack of IV contrast is noted to limit evaluation for mediastinal and especially hilar ad enopathy. Stable slightly enlarged 2.6 x 1.2 cm prevascular lymph node axial image 47. Persistent car diomegaly with multi lead pacemaker/defibrillator. No pericardial effusion. Mild to moderate calcifie d plaque throughout the thoracic aorta. 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 Dependent density consistent with small stones and/or gallbladder sludge is red emonstrated. Bridging osteophytes in the thoracic spine are noted. IMPRESSION: Cardiomegaly is redemonstrated. Stable small left-sided pleural fluid collection which jung s a more prominent apical component. Small to moderate size right-sided pleural effusion is increased in size from prior CT. Bilateral mosaic attenuation suggesting bilateral edema with slight nodularit y raises concern for atypical infection. Correlate clinically. There is definitive CHF exacerbation.
--- NOTE | 2023-11-09 02:24 | HP ---
HISTORY AND PHYSICAL 88-year-old white male, seen in the ER shortness of breath, difficulty breathing. MEDICATIONS: Reviewed. ALLERGIES: Negative. PAST MEDICAL HISTORY: Heart catheterization, CABG, cardioversion. FAMILY HISTORY: Brother cancer. Father cancer. REVIEW OF SYSTEMS: 14-point review of systems, see chart. PHYSICAL EXAMINATION: VITAL SIGNS: Temp 98.2, pulse 70 to 80, blood pressure 80/40, O2 of 98% on room air. CARDIOVASCULAR: S1, S2. LUNGS: Transmitted upper sounds. GI: Soft. HEMATOLOGY: Negative Homans. NEUROLOGIC: Cranial nerves intact. LABORATORY DATA: Hemoglobin is 12.7, white count 6.7. Blood cultures are negative. He has generalized weakness, CHF, acute on chronic renal failure, systolic CHF, COPD, . Prognosis is guarded. Follow up in next 24 to 48 hours. Please see further orders. MMODL / IJN: [id number] /
--- NOTE | 2023-11-09 04:40 | P.CNPUL ---
History of Present Illness Consult date: 11/09/23 Requesting physician: Quentin Pedraza Reason for consult: other (Fluid overload, BiPAP support) Chief complaint: Shortness of breath History of present illness: I am seeing this patient in consultation today November 09, 2023 in the emergency room after missing hemodialysis earlier in the week. He was severely short of breath and in a fluid overload state. Patient is a 88-year-old male with past medical history significant for chronic systolic congestive heart failure, end- stage renal disease receiving hemodialysis 3 times a week (, , Mon), COPD, coronary artery disease with previous CABG, ischemic cardiomyopathy with AICD/pacemaker, diabetes, hyperlipidemia, hypertension, atrial fibrillation, mantle cell lymphoma with previous chemotherapy, among other things. Patient presented to the emergency room yesterday afternoon with mostly complaints of shortness of breath. He reportedly received half a treatment of hemodialysis on Monday and was unable to go to hemodialysis on Monday. He is in a significant fluid overload state. Denies any infectious like symptoms. Denies any chest pain, heart palpitations, syncope. Chest x-ray done on arrival showed cardiomegaly, pulmonary vascular congestion, and bilateral pleural effusions. There is an AICD. Follow-up chest CT redemonstrates the above-mentioned findings. There is stable small left-sided pleural effusion which appears loculated and a small to moderate size right pleural effusion that is increased in size. There is a mosaic attenuation suggesting bilateral edema with slight nodularity raising concern for superimposed atypical infection, however, there is definitive CHF exacerbation. On my evaluation, the patient is on a 50% Ventimask, he is surprisingly not in any distress. SpO2 is 90 to 92%. There is marked lower extremity pitting edema. NT proBNP was 195,000. He does have a right femoral hemodialysis catheter. Blood pressure is normotensive at this time. Heart rhythm is V paced. CBC on arrival: WC count of 6.7, hemoglobin 12.7, hematocrit 39.5, platelets 155. BMP on arrival: Sodium 137, potassium 4.8, chloride 100, serum bicarb 22, BUN 54, creatinine 5.17, glucose 104. Patient does take warfarin outpatient. INR therapeutic at 2.2. Troponin 0.017. Negative for influenza, RSV, COVID. Patient is awaiting stat hemodialysis. Prognosis is guarded related to above-mentioned comorbidities. Review of Systems REVIEW OF SYSTEMS: CONSTITUTIONAL: Denies any recent significant weight loss or weight gain. Denies fever. EYES: Denies change in vision. EARS, NOSE, MOUTH, THROAT: Denies headaches, denies sore throat. CARDIOVASCULAR: Denies chest pain, palpitations or syncopal episodes. Admits shortness of breath RESPIRATORY: Denies cough, congestion or hemoptysis. GASTROINTESTINAL: Denies change in appetite, abdominal pain, nausea and vomiting, or diarrhea GENITOURINARY: Denies hematuria, denies infections. MUSKULOSKELETAL: Denies pain, denies swelling. INTEGUMENTARY: Denies rash, denies eczema. NEUROLOGICAL: Denies recent memory loss, no recent seizure activity. PSYCHIATRIC: Denies anxiety, denies depression. HEMATOLOGIC/LYMPHATIC: Denies anemia, denies enlarged lymph node Past Medical History Past Medical History: Atrial Fibrillation, Coronary Artery Disease (CAD), Cancer, Heart Failure, COPD, Diabetes Mellitus, Hypertension, Liver Disease, Myocardial Infarction ([place]), Renal Disease, Thyroid Disorder Additional Past Medical History / Comment(s): See Dr Carrera's H&P,mantle cell lymphoma treated 9-10 years ago with chemo, hx pleural effusion L side with thoracentesis x2, sepsis, urinary retention, hepatitis in 1950 type unknown, diff swallowing, decreased kidney function Last Myocardial Infarction Date:: 1998 History of Any Multi-Drug Resistant Organisms: None Reported Past Surgical History: AICD, Coronary Bypass/CABG, Heart Catheterization, Pacemaker Additional Past Surgical History / Comment(s): PTCA, 1998 4 vessel CABG, cardioversion, L thoracentesis x2, colonoscopy, bone marrow bx, bilateral cataract removal, mediport. Past Anesthesia/Blood Transfusion Reactions: No Reported Reaction Type of Cardiac Device: Permanent Pacemaker, AICD Device Placement Date:: 2004 implant/2017 gen change Past Psychological History: No Psychological Hx Reported Smoking Status: Former smoker Past Alcohol Use History: None Reported Past Drug Use History: None Reported - Past Family History Mother Family Medical History: No Reported History Additional Family Medical History / Comment(s): Mother was healthy and lived to be 86yrs old. Brother(s) Family Medical History: Cancer Father Family Medical History: Cancer Additional Family Medical History / Comment(s): Father had bone cancer. He also had "heart problems." He at the age of 82 yrs. Medications and Allergies Home Medications Medication Instructions Recorded Confirmed Type Aspirin EC [Ecotrin Low Dose] 81 mg PO DAILY 01/31/15 11/08/23 History Levothyroxine Sodium [Synthroid] 100 mcg PO DAILY 06/22/17 11/08/23 History Warfarin [Coumadin] 1.25 mg PO SUMOWETHFR 01/28/22 11/08/23 History Warfarin [Coumadin] 2.5 mg PO TUSA 01/28/22 11/08/23 History Ipratropium-Albuterol Nebulize 3 ml INHALATION RT-TID 05/25/23 11/08/23 History [Duoneb 0.5 mg-3 mg/3 ml Soln] Budesonide [Pulmicort] 1 mg INHALATION RT-BID 09/23/23 11/08/23 History Clotrimazole/Betameth Cream 1 applic TOPICAL BID PRN 09/23/23 11/08/23 History [Lotrisone] Docusate [Colace] 100 mg PO DAILY 09/23/23 11/08/23 History FLUoxetine HCL [PROzac] 10 mg PO DAILY 09/23/23 11/08/23 History Folic Acid/Vit B Complex and C 0.8 mg PO TUTHSA 09/23/23 11/08/23 History [Nephro-Rowan Tablet] Midodrine HCl [ProAmatine] 10 mg PO TID 09/23/23 11/08/23 History Multivitamin [Multivitamins Adult 1 tab PO DAILY 09/23/23 11/08/23 History Gummies] Omeprazole 40 mg PO DAILY 09/23/23 11/08/23 History Sennosides/Docusate Sodium [Senna 1 cap PO TUTHSA@2100 09/23/23 11/08/23 History Plus 8.6-50 mg Softgel] Tamsulosin [Flomax] 0.4 mg PO DAILY 09/23/23 11/08/23 History allopurinoL [Zyloprim] 100 mg PO DAILY 09/23/23 11/08/23 History Torsemide [Demadex] 20 mg PO BID 11/08/23 11/08/23 History Allergies Allergy/AdvReac Type Severity Reaction Status Date / Time No Known Allergies Allergy Verified 11/08/23 16:14 Physical Exam Vitals: Vital Signs Temp Pulse Resp BP Pulse Ox FiO2 11/09/23 03:12 50 11/09/23 03:00 87 36 H 96/72 94 L 11/09/23 01:08 50 11/09/23 01:00 116 H 15 112/81 97 11/09/23 00:51 30 H 112/81 97 11/09/23 00:45 95 11/09/23 00:39 100 11/09/23 00:05 86 L 11/09/23 00:00 96 17 99/64 97 11/08/23 23:12 79 21 98/58 93 L 11/08/23 22:17 94 L 40 11/08/23 21:36 86 29 H 98/63 91 L 11/08/23 20:33 87 25 H 99/60 92 L 11/08/23 19:36 82 18 95/56 94 L 11/08/23 19:00 90 24 102/60 94 L 11/08/23 18:30 76 24 96/58 96 11/08/23 18:00 80 22 95/54 96 11/08/23 17:30 78 20 110/97 96 11/08/23 17:00 78 20 104/69 94 L 11/08/23 16:36 82 11/08/23 16:30 81 22 96/60 96 11/08/23 16:15 80 11/08/23 16:00 84 20 98/53 95 11/08/23 15:08 98.2 F 79 38 H 80/40 90 L Intake and Output 11/08/23 11/08/23 11/09/23 14:59 22:59 06:59 Other: Weight 65.317 kg GENERAL EXAM: Alert, 88-year-old white male, frail and fatigued, but comfortable in no apparent respiratory distress. HEAD: Normocephalic and atraumatic EYES: Normal reaction of pupils, equal size. NOSE: Clear with pink turbinates. THROAT: No erythema or exudates. NECK: No masses. There is moderate JVD CHEST: No chest wall deformity. Right chest Mediport. LUNGS: Equal air entry with diffuse rales. On a 50% Ventimask. SpO2 currently 90%. no conversational dyspnea or accessory muscle use. CVS: S1 and S2 normal with no audible murmur, regular rhythm. No extra heart sounds ABDOMEN: No hepatosplenomegaly, active bowel sounds, no guarding or rigidity. SPINE: No scoliosis or deformity SKIN: No rashes, scattered ecchymosis CENTRAL NERVOUS SYSTEM: No focal deficits, tone is normal in all 4 extremities. EXTREMITIES: There is 3-4+ bilateral lower extremity pitting edema. Right groin hemodialysis cath. No clubbing, or cyanosis. Peripheral pulses are intact. Results - Laboratory Findings CBC and BMP: 11/08/23 15:44 11/08/23 15:44 PT/INR, D-dimer PT 21.5 sec (10.0-12.5) H 11/08/23 15:44 INR 2.2 (<1.2) H 11/08/23 15:44 Abnormal lab findings: Abnormal Labs 11/08/23 11/08/23 11/08/23 15:44 15:44 15:44 RBC 4.23 L Hgb 12.7 L RDW 15.6 H Lymphocytes # 0.8 L PT 21.5 H INR 2.2 H APTT 31.1 H BUN 54 H Creatinine 5.17 H Glucose 104 H Total Protein 6.2 L - Diagnostic Findings Chest x-ray: image reviewed CT scan - chest: image reviewed Assessment and Plan Assessment: Acute hypoxemic respiratory failure, secondary to fluid overload related to missing hemodialysis earlier in the week and an exacerbation of chronic systolic congestive heart failure. Chest x-ray done on arrival showed cardiomegaly, pulmonary vascular congestion, and bilateral pleural effusions. There is an AICD. Follow-up chest CT redemonstrates the above-mentioned findings. There is stable small left-sided pleural effusion which appears loculated and a small to moderate size right pleural effusion that is increased in size. There is a mosaic attenuation suggesting bilateral pulmonary edema with slight nodularity raising concern for possible superimposed atypical infection, however, there is definitive CHF exacerbation. NT proBNP was 195,000. History of ischemic cardiomyopathy, with a baseline ejection fraction less than 20%, status post AICD/pacemaker End-stage renal disease, maintained on hemodialysis 3 times a week (, , MON). He reportedly missed dialysis on Monday and only received half treatment on Monday. Coronary artery disease, with previous CABG Diabetes mellitus History of hyperlipidemia History of hypertension History of atrial fibrillation, anticoagulated on warfarin outpatient, INR is therapeutic History of hypothyroidism History of mantle cell lymphoma with previous chemotherapy History of chronic obstructive pulmonary disease, stable on my evaluation Plan: Patient's medications, labs, imaging reviewed Transition the patient to BiPAP with settings 10/5 and FiO2 50% to support patient's work of breathing until emergent hemodialysis can be arranged. We have reached out to nephrology to facilitate this. Patient has already received 20 mg of IV Lasix this morning, give an additional 40 mg of IV Lasix once now. Patient still makes urine. His brief is wet currently. Patient was started on antibiotics, which are essentially empiric. Maintenance COPD medications already restarted. Patient's prognosis is guarded related above-mentioned comorbidities. We will continue to follow I have personally seen and examined the patient, performed the documentation and the assessment and plan as written. Number of minutes spent on the visit:20 Time with Patient: Greater than 30
[2023-11-09] MEDS: FUROSEMIDE 10 MG/ML 4 ML VIAL IV STA (04:45)
[2023-11-09 06:43] LABS: ALT 15 U/L (4-49); AST 21 U/L (17-59); African American GFR (CKD) 16 (>60 ml/min/1.73 sqM); Albumin 3.4 g/dL (3.5-5.0); Alkaline Phosphatase 119 U/L (38-126); Anion Gap 10 mmol/L; Blood Urea Nitrogen 39 mg/dL (9-20); Calcium 7.9 mg/dL (8.4-10.2); Carbon Dioxide 24 mmol/L (22-30); Chloride 102 mmol/L (98-107); Glucose 134 mg/dL (74-99); Magnesium 1.9 mg/dL (1.6-2.3); Non-African American GFR(CKD) 14 (>60 ml/min/1.73 sqM); Phosphorus 4.4 mg/dL (2.5-4.5); Potassium 4.3 mmol/L (3.5-5.1); Sodium 136 mmol/L (137-145); Total Bilirubin 0.8 mg/dL (0.2-1.3)
[2023-11-09] MEDS: IPRATROPIUM-ALBUTEROL 3 ML NEB INHALATION SCH (08:10)
[2023-11-09] MEDS: BUDESONIDE 1 MG/2 ML NEBU INHALATION SCH (08:10)
[2023-11-09] MEDS: DOCUSATE 100 MG CAP PO SCH (09:18)
[2023-11-09] MEDS: MULTIVITAMINS, THERA 1 EACH TAB PO SCH (09:18)
[2023-11-09] MEDS: LEVOTHYROXINE 100 MCG TAB PO SCH (09:18)
[2023-11-09] MEDS: ASPIRIN 81 MG PO SCH (09:18)
[2023-11-09] MEDS: MIDODRINE 5 MG TAB PO SCH (09:18)
[2023-11-09] MEDS: PANTOPRAZOLE 40 MG TABLET PO SCH (09:18)
[2023-11-09] MEDS: FLUoxetine HCL 10 MG CAP PO SCH (09:39)
[2023-11-09] MEDS: FOLIC ACID-VIT B COMPLEX-VIT C 1 CAP PO SCH (09:39)
[2023-11-09] MEDS: TAMSULOSIN 0.4 MG CAP.ER.24H PO SCH (11:41)
--- NOTE | 2023-11-09 12:15 | P.NPCON ---
History of Present Illness - Reason for Consult end stage renal disease - History of Present Illness Reason for consultation: End-stage renal disease History of present illness: Patient is a 88-year-old male seen in renal consultation for end-stage renal disease. Patient was seen and examined in the emergency room. Patient is maintained on hemodialysis on Monday schedule. Patient s ángel he missed hemodialysis treatment on Monday due to not feeling well and weak. Patient denies history of diabetes. He does have history of CABG. Patient was initially on a nonrebreather and is now on a BiPAP. He underwent emergent hemodialysis this morning. He denies fever or chills. Hemodynamically stable. Chest CT showed pleural effusions. It appears patient did receive a liter bolus of normal saline on admission. Patient does have history of AICD placement. Patient has a right femoral hemodialysis catheter. Vital signs are stable. General: No acute distress. HEENT: On BiPAP. LUNGS: Scattered rhonchi. HEART: Rate and Rhythm are regular. ABDOMEN: Nontender. EXTREMITITES: 2+ edema. Past Medical History Past Medical History: Atrial Fibrillation, Coronary Artery Disease (CAD), Cancer, Heart Failure, COPD, Diabetes Mellitus, Hypertension, Liver Disease, Myocardial Infarction ([place]), Renal Disease, Thyroid Disorder Additional Past Medical History / Comment(s): See Dr Carrera's H&P,mantle cell lymphoma treated 9-10 years ago with chemo, hx pleural effusion L side with thoracentesis x2, sepsis, urinary retention, hepatitis in 1950 type unknown, diff swallowing, decreased kidney function Last Myocardial Infarction Date:: 1998 History of Any Multi-Drug Resistant Organisms: None Reported Past Surgical History: AICD, Coronary Bypass/CABG, Heart Catheterization, Pacemaker Additional Past Surgical History / Comment(s): PTCA, 1998 4 vessel CABG, cardioversion, L thoracentesis x2, colonoscopy, bone marrow bx, bilateral cataract removal, mediport. Past Anesthesia/Blood Transfusion Reactions: No Reported Reaction Type of Cardiac Device: Permanent Pacemaker, AICD Device Placement Date:: 2004 implant/2017 gen change Past Psychological History: No Psychological Hx Reported Smoking Status: Former smoker Past Alcohol Use History: None Reported Past Drug Use History: None Reported - Past Family History Mother Family Medical History: No Reported History Additional Family Medical History / Comment(s): Mother was healthy and lived to be 86yrs old. Brother(s) Family Medical History: Cancer Father Family Medical History: Cancer Additional Family Medical History / Comment(s): Father had bone cancer. He also had "heart problems." He at the age of 82 yrs. Medications and Allergies Home Medications Medication Instructions Recorded Confirmed Type Aspirin EC [Ecotrin Low Dose] 81 mg PO DAILY 01/31/15 11/08/23 History Levothyroxine Sodium [Synthroid] 100 mcg PO DAILY 06/22/17 11/08/23 History Warfarin [Coumadin] 1.25 mg PO SUMOWETHFR 01/28/22 11/08/23 History Warfarin [Coumadin] 2.5 mg PO TUSA 01/28/22 11/08/23 History Ipratropium-Albuterol Nebulize 3 ml INHALATION RT-TID 05/25/23 11/08/23 History [Duoneb 0.5 mg-3 mg/3 ml Soln] Budesonide [Pulmicort] 1 mg INHALATION RT-BID 09/23/23 11/08/23 History Clotrimazole/Betameth Cream 1 applic TOPICAL BID PRN 09/23/23 11/08/23 History [Lotrisone] Docusate [Colace] 100 mg PO DAILY 09/23/23 11/08/23 History FLUoxetine HCL [PROzac] 10 mg PO DAILY 09/23/23 11/08/23 History Folic Acid/Vit B Complex and C 0.8 mg PO TUTHSA 09/23/23 11/08/23 History [Nephro-Rowan Tablet] Midodrine HCl [ProAmatine] 10 mg PO TID 09/23/23 11/08/23 History Multivitamin [Multivitamins Adult 1 tab PO DAILY 09/23/23 11/08/23 History Gummies] Omeprazole 40 mg PO DAILY 09/23/23 11/08/23 History Sennosides/Docusate Sodium [Senna 1 cap PO TUTHSA@2100 09/23/23 11/08/23 History Plus 8.6-50 mg Softgel] Tamsulosin [Flomax] 0.4 mg PO DAILY 09/23/23 11/08/23 History allopurinoL [Zyloprim] 100 mg PO DAILY 09/23/23 11/08/23 History Torsemide [Demadex] 20 mg PO BID 11/08/23 11/08/23 History Allergies Allergy/AdvReac Type Severity Reaction Status Date / Time No Known Allergies Allergy Verified 11/08/23 16:14 Physical Exam Vitals: Vital Signs Temp Pulse Resp BP Pulse Ox FiO2 11/09/23 11:46 50 11/09/23 11:45 80 11/09/23 11:00 87 22 101/58 96 11/09/23 10:00 89 24 97/66 96 11/09/23 09:38 50 11/09/23 09:37 97.5 F L 89 20 86/52 93 L 11/09/23 09:00 89 28 H 103/57 87 L 11/09/23 08:33 93 L 11/09/23 08:32 86 11/09/23 08:11 86 11/09/23 08:10 98 100 11/09/23 07:37 82 22 103/68 99 11/09/23 06:46 87 18 112/60 98 11/09/23 06:15 73 18 101/72 96 11/09/23 05:49 84 21 115/69 95 11/09/23 05:00 84 21 116/79 97 11/09/23 04:44 79 20 105/68 96 11/09/23 04:23 98.8 F 88 20 99/60 96 11/09/23 03:12 50 11/09/23 03:00 87 36 H 96/72 94 L 11/09/23 01:08 50 11/09/23 01:00 116 H 15 112/81 97 11/09/23 00:51 30 H 112/81 97 11/09/23 00:45 95 11/09/23 00:39 100 11/09/23 00:05 86 L 11/09/23 00:00 96 17 99/64 97 11/08/23 23:12 79 21 98/58 93 L 11/08/23 22:17 94 L 40 11/08/23 21:36 86 29 H 98/63 91 L 11/08/23 20:33 87 25 H 99/60 92 L 11/08/23 19:36 82 18 95/56 94 L 11/08/23 19:00 90 24 102/60 94 L 11/08/23 18:30 76 24 96/58 96 11/08/23 18:00 80 22 95/54 96 11/08/23 17:30 78 20 110/97 96 11/08/23 17:00 78 20 104/69 94 L 11/08/23 16:36 82 11/08/23 16:30 81 22 96/60 96 11/08/23 16:15 80 11/08/23 16:00 84 20 98/53 95 11/08/23 15:08 98.2 F 79 38 H 80/40 90 L Intake and Output 11/08/23 11/09/23 11/09/23 22:59 06:59 14:59 Other: Weight 65.317 kg Results - Lab Results Most recent lab results Calcium 7.9 mg/dL (8.4-10.2) L 11/09/23 06:18 Phosphorus 4.4 mg/dL (2.5-4.5) 11/09/23 06:18 Magnesium 1.9 mg/dL (1.6-2.3) 11/09/23 06:18 11/08/23 15:44 11/09/23 06:18 Assessment and Plan Plan: Assessment: 1. End-stage renal disease maintained on hemodialysis on Monday schedule via right femoral catheter. 2. Noncompliance with hemodialysis. 3. Fluid overload. 4. Acute on chronic systolic CHF status post AICD placement. 5. Acute hypoxic respiratory failure. 6. Coronary artery disease status post CABG. Plan: Patient completed a short hemodialysis earlier this morning. Plan for another 2 hours of hemodialysis treatment today. Another treatment tomorrow for fluid overload. Maintain midodrine. Hold for systolic blood pressure greater than 115. Wean FiO2. Check phosphorus level. Follow-up echocardiogram. Thank you for the consultation. I will continue to follow the patient with you during his hospital stay.
--- NOTE | 2023-11-09 12:59 | CA ---
Transthoracic Echo Report Name: Ramone Patel Age: 88 Gender: M : 1935 Exam Date: 11/09/2023 09:47 Exam Location: [facility] Ht (in): 70 Wt (lb): 144 Ordering Physician: Quentin Pedraza MD Attending/Referring Phys: Restaurant Hostess Lalo Carmen RD Procedure CPT: Indications: dyspnea Cardiac Hx: Technical Quality: Fair Contrast 1: Total Dose (mL): Contrast 2: Total Dose (mL): MEASUREMENTS (Male / Female) Normal Values 2D ECHO LV Diastolic Diameter PLAX 6.5 cm 4.2 - 5.9 / 3.9 - 5.3 cm LV Systolic Diameter PLAX 5.6 cm IVS Diastolic Thickness 0.9 cm 0.6 - 1.0 / 0.6 - 0.9 cm LVPW Diastolic Thickness 1.0 cm 0.6 - 1.0 / 0.6 - 0.9 cm LV Relative Wall Thickness 0.3 RV Internal Dim ED PLAX 3.2 cm LVOT Diameter 1.9 cm Aortic Root Diameter 2.4 cm LA Systolic Diameter LX 4.0 cm 3.0 - 4.0 / 2.7 - 3.8 cm LV Diastolic Volume MOD BP 149.6 cm??? 67 - 155 / 56 - 104 cm??? LV Systolic Volume MOD BP 105.6 cm??? - 58 / 19 - 49 cm??? LV Ejection Fraction MOD BP 29.4 % >= 55 % LV Cardiac Index MOD BP 2042.2 cm???/min???m??? LV Diastolic Volume MOD 4C 109.7 cm??? LV Systolic Volume MOD 4C 91.8 cm??? LV Ejection Fraction MOD 4C 16.3 % LV Cardiac Index MOD 4C 827.1 cm???/min???m??? LV Diastolic Length 4C 8.2 cm LV Systolic Length 4C 7.6 cm LV Diastolic Volume MOD 2C 182.6 cm??? LV Systolic Volume MOD 2C 112.4 cm??? LV Ejection Fraction MOD 2C 38.5 % LV Cardiac Index MOD 2C 3256.3 cm???/min???m??? LV Diastolic Length 2C 9.2 cm LV Systolic Length 2C 8.2 cm LA Volume 79.3 cm??? 18 - 58 / 22 - 52 cm??? LA Volume Index 44.3 cm???/m??? 16 - 28 cm???/m??? DOPPLER AV Peak Velocity 152.3 cm/s AV Peak Gradient 9.3 mmHg AV Mean Velocity 101.5 cm/s AV Mean Gradient 4.9 mmHg AV Velocity Time Integral 26.4 cm AI Peak Velocity 264.1 cm/s AI Peak Gradient 27.9 mmHg AI Pressure Half Time 653.5 ms LVOT Peak Velocity 81.2 cm/s LVOT Peak Gradient 2.6 mmHg LVOT Velocity Time Integral 13.1 cm LVOT Stroke Volume 35.4 cm??? LVOT Stroke Volume Index 19.5 ml/m??? LVOT Cardiac Index 1641.6 cm???/min???m??? AV Area Cont Eq vti 1.3 cm??? AV Area Cont Eq pk 1.4 cm??? MV Peak Velocity 147.7 cm/s MV Peak Gradient 8.7 mmHg MV Mean Velocity 62.4 cm/s MV Mean Gradient 2.1 mmHg MV Velocity Time Integral 31.5 cm MR Peak Velocity 364.2 cm/s MR Peak Gradient 53.1 mmHg TR Peak Velocity 291.6 cm/s TR Peak Gradient 34.0 mmHg Right Ventricular Systolic Press 39.1 mmHg PV Peak Velocity 95.1 cm/s PV Peak Gradient 3.6 mmHg FINDINGS Left Ventricle Severe left ventricular dilatation. Normal wall thickness. Left ventricular ejection fraction is estimated at 10-15 %. Right Ventricle Normal right ventricular size. Catheter/pacemaker wire in the right ventricular cavity. RVSP= 42mmHg. Right Atrium Right atrial dilatation. RA area= 22.0 cm2. Catheter/pacemaker wire in the right atrial cavity. Left Atrium Moderate left atrial dilatation. LA volume index= 44ml/m2 Mitral Valve Mild mitral valve thickening. Moderate MR. Aortic Valve At least moderate AV calcification. Moderate AI. Tricuspid Valve Structurally normal tricuspid valve. Moderate TR. Pulmonic Valve Pulmonic valve not well visualized. Moderate PI. Pericardium No pericardial effusion Aorta Normal size aortic root. CONCLUSIONS Severe left ventricular dilatation. Severely reduced global LV systolic function LVEF is estimated at 10-15 %. Moderate biatrial dilatation PPM wire noted and RA and RV Moderate MR. Moderate AI. No pericardial effusion Previewed by: Dr Tex Villalpando (Electronically Signed) Final Date: 09 November 2023 12:58
[2023-11-09] MEDS: allopurinoL 100 MG TAB PO SCH (13:09)
[2023-11-09 13:13] LABS: Basophils % (A) 0 %; Eosinophils % (A) 0 %; HCT 38.5 % (39.0-53.0); HGB 12.2 gm/dL (13.0-17.5); Hypochromasia Slight; Lymphocytes # (A) 0.2 k/uL (1.0-4.8); Lymphocytes % (A) 6 %; MCH 29.9 pg (25.0-35.0); MCHC 31.6 g/dL (31.0-37.0); MCV 94.5 fL (80.0-100.0); Mean Platelet Volume 8.4; Monocytes # (A) 0.1 k/uL (0-1.0); Monocytes % (A) 3 %; Neutrophils # (A) 3.8 k/uL (1.3-7.7); Neutrophils % (A) 91 %; Platelet Count 128 k/uL (150-450); RBC 4.07 m/uL (4.30-5.90); RDW 15.4 % (11.5-15.5); WBC 4.2 k/uL (3.8-10.6)
[2023-11-09 13:33] LABS: INR 2.6 (<1.2); Prothrombin Time 25.3 sec (10.0-12.5)
--- NOTE | 2023-11-09 16:38 | P.CRDCN ---
History of Present Illness Consult date: 11/09/23 Consult reason: congestive heart failure, shortness of breath Chief complaint: shortness of breath History of present illness: History of present illness: Patient is a pleasant 88-year-old male with significant past medical history of CAD with prior CABG, ischemic cardiomyopathy with previous AICD implantation, systolic heart failure, hypertension, hyperlipidemia, paroxysmal atrial fibrillation, end-stage renal disease on dialysis who presented to the emergency department with worsening shortness of breath. He does follow in the office with Dr. Carrera. He apparently had missed dialysis on Monday of this week because he had not been feeling well. He then proceeded to have worsening shortness of breath and feeling weak. He denies any chest pain or pressure. Denies any dizziness or syncope. He is currently on BiPAP. Echocardiogram today shows EF 10-15%, RVSP 42, severe LV dilation, moderate mitral reg urgitation, moderate aortic insufficiency. Prior echo from 12/29 with ejection fraction 25%. He did have a prior Lexiscan stress test 08/29 that was reported negative. Labs reviewed: Sodium 136, potassium 4.3, creatinine 3.69, troponin normal x 1, BNP elevated 667007, INR 2.2. He underwent emergent dialysis this morning. He was planned for another 2 hours of hemodialysis today per nephrology however he has refused this. REVIEW OF SYSTEMS: No fever or chills. No cough or expectoration. No di aphoresis. Patient denies headache, dizziness, blurred vision, double vision. Patient denies any stomach discomfort. No nausea, vomiting. No hematochezia. No hematemesis. Denies any black stools or blood in his stools. Denies dysuria or hematuria. No numbness. No chest pain or pressure. Reports shortness of breath and generalized weakness. PHYSICAL EXAMINATION: This is a 88-year-old male in no apparent distress at the time of my examination. HEENT: Head is atraumatic, normocephalic. Pupils are equal, round. Sclerae anicteric. Conjunctivae are clear. Mucous membranes of the mouth are moist. Neck is supple. There is no jugular venous distention. No carotid bruit is heard. CHEST EXAMINATION: Lungs are diminished with scattered wheezes, on BiPAP. No chest wall tenderness is noted on palpation or with deep breathing. HEART EXAMINATION: Heart regular rate and rhythm. S1, S2 heard. No murmurs, gallops or rub. ABDOMEN: Soft, nontender. Bowel sounds are heard. EXTREMITIES: 2+ peripheral pulses with +1 BLE edema and no calf tenderness noted. NEUROLOGIC EXAMINATION: Patient is awake, alert and oriented x3. IMPRESSION AND PLAN: Acute on chronic heart failure with reduced EF 10-15%, proBNP Ischemic cardiomyopathy with previous AICD implantation CAD with previous CABG End-stage renal disease on dialysis Hypertension Hyperlipidemia Paroxysmal atrial fibrillation Lower extremity edema Dyspnea PLAN: Symptoms appear to be related to fluid overload likely related to worsening heart failure and kidney failure. Recommend increasing Lasix to 80 mg IV twice daily and monitor response. Dialysis as per nephrology. We will follow. I am dictating on behalf of Dr. Hoang Keyes's history/physical and assessment/plan. Past Medical History Past Medical History: Atrial Fibrillation, Coronary Artery Disease (CAD), Cancer, Heart Failure, COPD, Diabetes Mellitus, Hypertension, Liver Disease, Myocardial Infarction (AR), Renal Disease, Thyroid Disorder Additional Past Medical History / Comment(s): See Dr Carrera's H&P,mantle cell lymphoma treated 9-10 years ago with chemo, hx pleural effusion L side with th oracentesis x2, sepsis, urinary retention, hepatitis in 1950 type unknown, diff swallowing, decreased kidney function Last Myocardial Infarction Date:: 1998 History of Any Multi-Drug Resistant Organisms: None Reported Past Surgical History: AICD, Coronary Bypass/CABG, Heart Catheterization, Pacemaker Additional Past Surgical History / Comment(s): PTCA, 1998 4 vessel CABG, cardioversion, L thoracentesis x2, colonoscopy, bone marrow bx, bilateral cataract removal, mediport. Past Anesthesia/Blood Transfusion Reactions: No Reported Reaction Type of Cardiac Device: Permanent Pacemaker, AICD Device Placement Date:: 2004 implant/2017 gen change Past Psychological History: No Psychological Hx Reported Smoking Status: Former smoker Past Alcohol Use History: None Reported Past Drug Use History: None Reported - Past Family History Mother Family Medical History: No Reported History Additional Family Medical History / Comment(s): Mother was healthy and lived to be 86yrs old. Brother(s) Family Medical History: Cancer Father Family Medical History: Cancer Additional Family Medical History / Comment(s): Father had bone cancer. He also had "heart problems." He at the age of 82 yrs. Medications and Allergies Home Medications Medication Instructions Recorded Confirmed Type Aspirin EC [Ecotrin Low Dose] 81 mg PO DAILY 01/31/15 11/08/23 History Levothyroxine Sodium [Synthroid] 100 mcg PO DAILY 06/22/17 11/08/23 History Warfarin [Coumadin] 1.25 mg PO SUMOWETHFR 01/28/22 11/08/23 History Warfarin [Coumadin] 2.5 mg PO TUSA 01/28/22 11/08/23 History Ipratropium-Albuterol Nebulize 3 ml INHALATION RT-TID 05/25/23 11/08/23 History [Duoneb 0.5 mg-3 mg/3 ml Soln] Budesonide [Pulmicort] 1 mg INHALATION RT-BID 09/23/23 11/08/23 History Clotrimazole/Betameth Cream 1 applic TOPICAL BID PRN 09/23/23 11/08/23 History [Lotrisone] Docusate [Colace] 100 mg PO DAILY 09/23/23 11/08/23 History FLUoxetine HCL [PROzac] 10 mg PO DAILY 09/23/23 11/08/23 History Folic Acid/Vit B Complex and C 0.8 mg PO TUTHSA 09/23/23 11/08/23 History [Nephro-Rowan Tablet] Midodrine HCl [ProAmatine] 10 mg PO TID 09/23/23 11/08/23 History Multivitamin [Multivitamins Adult 1 tab PO DAILY 09/23/23 11/08/23 History Gummies] Omeprazole 40 mg PO DAILY 09/23/23 11/08/23 History Sennosides/Docusate Sodium [Senna 1 cap PO TUTHSA@2100 09/23/23 11/08/23 History Plus 8.6-50 mg Softgel] Tamsulosin [Flomax] 0.4 mg PO DAILY 09/23/23 11/08/23 History allopurinoL [Zyloprim] 100 mg PO DAILY 09/23/23 11/08/23 History Torsemide [Demadex] 20 mg PO BID 11/08/23 11/08/23 History Allergies Allergy/AdvReac Type Severity Reaction Status Date / Time No Known Allergies Allergy Verified 11/08/23 16:14 Physical Exam Vitals: Vital Signs Temp Pulse Resp BP Pulse Ox FiO2 11/09/23 12:07 84 11/09/23 12:00 78 22 106/57 97 11/09/23 11:46 50 11/09/23 11:45 80 11/09/23 11:00 87 22 101/58 96 11/09/23 10:00 89 24 97/66 96 11/09/23 09:38 50 11/09/23 09:37 97.5 F L 89 20 86/52 93 L 11/09/23 09:00 89 28 H 103/57 87 L 11/09/23 08:33 93 L 11/09/23 08:32 86 11/09/23 08:11 86 11/09/23 08:10 98 100 11/09/23 07:37 82 22 103/68 99 11/09/23 06:46 87 18 112/60 98 11/09/23 06:15 73 18 101/72 96 11/09/23 05:49 84 21 115/69 95 11/09/23 05:00 84 21 116/79 97 11/09/23 04:44 79 20 105/68 96 11/09/23 04:23 98.8 F 88 20 99/60 96 11/09/23 03:12 50 11/09/23 03:00 87 36 H 96/72 94 L 11/09/23 01:08 50 11/09/23 01:00 116 H 15 112/81 97 11/09/23 00:51 30 H 112/81 97 11/09/23 00:45 95 11/09/23 00:39 100 11/09/23 00:05 86 L 11/09/23 00:00 96 17 99/64 97 11/08/23 23:12 79 21 98/58 93 L 11/08/23 22:17 94 L 40 11/08/23 21:36 86 29 H 98/63 91 L 11/08/23 20:33 87 25 H 99/60 92 L 11/08/23 19:36 82 18 95/56 94 L 11/08/23 19:00 90 24 102/60 94 L 11/08/23 18:30 76 24 96/58 96 11/08/23 18:00 80 22 95/54 96 11/08/23 17:30 78 20 110/97 96 11/08/23 17:00 78 20 104/69 94 L 01/31/24 16:36 82 11/08/23 16:30 81 22 96/60 96 11/08/23 16:15 80 11/08/23 16:00 84 20 98/53 95 11/08/23 15:08 98.2 F 79 38 H 80/40 90 L Results 11/09/23 13:02 11/09/23 06:18 Cardiac Enzymes 11/08/23 11/08/23 11/09/23 Range/Units 15:44 15:44 06:18 AST 23 21 (17-59) U/L Troponin I 0.017 (0.000-0.034) ng/mL Coagulation 11/08/23 11/09/23 Range/Units 15:44 13:02 PT 21.5 H 25.3 H (10.0-12.5) sec APTT 31.1 H (22.0-30.0) sec CBC 11/08/23 11/09/23 Range/Units 15:44 13:02 WBC 6.7 4.2 (3.8-10.6) k/uL RBC 4.23 L 4.07 L (4.30-5.90) m/uL Hgb 12.7 L 12.2 L (13.0-17.5) gm/dL Hct 39.5 38.5 L (39.0-53.0) % Plt Count 155 128 L (150-450) k/uL Comprehensive Metabolic Panel 11/08/23 11/09/23 Range/Units 15:44 06:18 Sodium 137 136 L (137-145) mmol/L Potassium 4.8 4.3 (3.5-5.1) mmol/L Chloride 100 102 (98-107) mmol/L Carbon Dioxide 22 24 (22-30) mmol/L BUN 54 H 39 H (9-20) mg/dL Creatinine 5.17 H 3.69 H (0.66-1.25) mg/dL Glucose 104 H 134 H (74-99) mg/dL Calcium 8.6 7.9 L (8.4-10.2) mg/dL AST 23 21 (17-59) U/L ALT 15 15 (4-49) U/L Alkaline Phosphatase 118 119 (38-126) U/L Total Protein 6.2 L 6.0 L (6.3-8.2) g/dL Albumin 3.6 3.4 L (3.5-5.0) g/dL Current Medications Generic Name Dose Route Start Last Admin Trade Name Freq PRN Reason Stop Dose Admin Albuterol/Ipratropium 3 ml 11/09/23 08:00 11/09/23 11:45 Ipratropium-Albuterol 3 Ml Neb INHALATION 3 ml RT-TID MAME Administration Allopurinol 100 mg 11/09/23 09:00 11/09/23 13:09 Allopurinol 100 Mg Tab PO Not Given DAILY MAME Aspirin 81 mg 11/09/23 09:00 11/09/23 09:18 Aspirin 81 Mg PO 81 mg DAILY MAME Administration Budesonide 1 mg 11/09/23 08:00 11/09/23 08:10 Budesonide 1 Mg/2 Ml Nebu INHALATION 1 mg RT-BID MAME Administration Docusate Sodium 100 mg 11/09/23 09:00 11/09/23 09:18 Docusate 100 Mg Cap PO 100 mg DAILY MAME Administration Fluoxetine HCl 10 mg 11/09/23 09:00 11/09/23 09:39 Fluoxetine Hcl 10 Mg Cap PO 10 mg DAILY MAME Administration Furosemide 20 mg 11/09/23 00:45 11/09/23 09:18 Furosemide 10 Mg/Ml 2 Ml Vial IV 20 mg Q12HR MAME Administration Piperacillin Sod/Tazobactam 100 mls @ 25 mls/hr 11/09/23 12:00 11/09/23 11:40 Sod 3.375 gm/ Sodium Chloride IVPB 25 mls/hr Q12H MAME Administration Protocol Levothyroxine Sodium 100 mcg 11/09/23 06:30 11/09/23 09:18 Levothyroxine 100 Mcg Tab PO 100 mcg DAILY@0630 MAME Administration Lorazepam 0.5 mg 11/09/23 00:42 Lorazepam 2 Mg/Ml Inj IV Q6HR PRN Anxiety Methylprednisolone Sodium Succinate 60 mg 11/09/23 02:00 11/09/23 10:52 Methylprednisolone Sod Succi 125 Mg/2 Ml Vial IV 60 mg Q8H MAME Administration Midodrine 10 mg 11/09/23 07:30 11/09/23 14:12 Midodrine 5 Mg Tab PO 10 mg AC-TID MAME Administration Miscellaneous Information 0 each 11/09/23 09:09 Warfarin Per Pharmacy MISCELLANE DIRECTED PRN INR Morphine Sulfate 4 mg 11/08/23 17:46 Morphine Sulfate 4 Mg/Ml Syringe IV Q4HR PRN Severe Pain (Scale 7 to 10) Multivit/Ca Carb/B Cmplx/FA/Prenat 1 each 11/09/23 09:00 11/09/23 09:39 Folic Acid-Vit B Complex-Vit C 1 Cap PO 1 each TuThSa@0900 [facility] Administration Multivitamins 1 each 11/09/23 09:00 11/09/23 09:18 Multivitamins, Thera 1 Each Tab PO 1 each DAILY MAME Administration Naloxone HCl 0.2 mg 11/08/23 17:46 Naloxone 0.4 Mg/Ml 1 Ml Vial IV Q2M PRN Opioid Reversal Ondansetron HCl 4 mg 11/08/23 17:46 Ondansetron 4 Mg/2 Ml Vial IVP Q8HR PRN Nausea And Vomiting Pantoprazole Sodium 40 mg 11/09/23 09:00 11/09/23 09:18 Pantoprazole 40 Mg Tablet PO 40 mg DAILY [facility] Administration Senna/Docusate Sodium 1 each 11/09/23 21:00 Sennosides-Docusate Sodium 1 Each Tab PO TUTHSA@2100 [facility] Tamsulosin HCl 0.4 mg 11/09/23 09:00 11/09/23 11:41 Tamsulosin 0.4 Mg Cap.Er.24h PO 0.4 mg DAILY MAME Administration Warfarin Sodium 1.25 mg 11/09/23 18:00 Warfarin 2.5 Mg Tab PO SuMoWeThFr@1800 [facility] Protocol Warfarin Sodium 2.5 mg 11/11/23 18:00 Warfarin 2.5 Mg Tab PO TuSa@1800 [facility] Protocol 11/09/23 13:02 11/09/23 06:18
[2023-11-09] MEDS: WARFARIN 2.5 MG TAB PO SCH (18:06)
[2023-11-09 20:41] LABS: Glucose,Whole Blood 136 mg/dL (70-110)
[2023-11-09] MEDS: FUROSEMIDE 10 MG/ML 10 ML VIAL IV SCH (20:52)
[2023-11-09] MEDS: SENNOSIDES-DOCUSATE SODIUM 1 EACH TAB PO SCH (20:52)
[2023-11-09] MEDS: SACUBITRIL/VALSARTAN 24 MG-26 MG TABLET PO SCH (20:52)
--- NOTE | 2023-11-09 22:46 | US ---
EXAMINATION TYPE: US chest DATE OF EXAM: 11/09/2023 COMPARISON: CT: Today CLINICAL INDICATION: Male, 88 years old with history of effusion; Pleural effusion TECHNIQUE: Targeted ultrasound of the posterior lower bilateral hemithoraces EXAM MEASUREMENTS: Right Pleural Effusion pocket size: 10.0 cm Right skin surface to fluid distance: 1.4 cm Left Pleural Effusion pocket size: 3.3 cm Left skin surface to fluid distance: 1.9 cm Right side marked for possible thoracentesis outside the dept. Left side NOT marked for possible thoracentesis outside the dept. Pulmonologists are able to review the images in the patient?s EMR. Small dependent right pleural fluid collection on images saved. Tiny left basilar pleural fluid colle ction. Images correlate with CT earlier today. IMPRESSIONS: As above
--- NOTE | 2023-11-09 23:46 | PN ---
PROGRESS NOTE SUBJECTIVE: Ramone is an 88-year-old white male, who has hypotension, weakness, dehydration. Kidney function is better today. OBJECTIVE: VITAL SIGNS: Blood pressure is 116/74. He is on BiPAP 10/50, total of 5, 100% BiPAP. Temp 96.7. CARDIOVASCULAR: S1, S2. LUNGS: Scattered wheeze and rhonchi. HEMATOLOGY: Negative for Homans. Hemoglobin is 12.7, white count is 4.2, INR is 2.6, sugar is mid 100s, albumin is 3.4. ASSESSMENT: End-stage renal disease, prerenal azotemia, severe dehydration. Prognosis guarded. Continue current treatment. Possibly hold dialysis today and see if the patient's strength improves. MMODL / IJN: [id number] /
[2023-11-10 06:09] LABS: Glucose,Whole Blood 129 mg/dL (70-110)
[2023-11-10 06:10] LABS: Hepatitis B Surface Antigen Nonreactive
[2023-11-10 08:52] LABS: Basophils % (A) 0 %; Eosinophils % (A) 0 %; HCT 37.9 % (39.0-53.0); HGB 11.9 gm/dL (13.0-17.5); Hypochromasia Slight; Lymphocytes # (A) 0.4 k/uL (1.0-4.8); Lymphocytes % (A) 7 %; MCHC 31.5 g/dL (31.0-37.0); MCV 95.4 fL (80.0-100.0); Mean Platelet Volume 8.6; Monocytes # (A) 0.2 k/uL (0-1.0); Monocytes % (A) 4 %; Neutrophils # (A) 4.8 k/uL (1.3-7.7); Neutrophils % (A) 89 %; Platelet Count 142 k/uL (150-450); RBC 3.97 m/uL (4.30-5.90); RDW 15.5 % (11.5-15.5); WBC 5.4 k/uL (3.8-10.6)
[2023-11-10 09:11] LABS: Prothrombin Time 29.1 sec (10.0-12.5)
[2023-11-10 09:37] LABS: ALT 13 U/L (4-49); AST 19 U/L (17-59); African American GFR (CKD) 11 (>60 ml/min/1.73 sqM); Albumin 3.1 g/dL (3.5-5.0); Alkaline Phosphatase 90 U/L (38-126); Anion Gap 13 mmol/L; Blood Urea Nitrogen 58 mg/dL (9-20); Calcium 8.2 mg/dL (8.4-10.2); Carbon Dioxide 22 mmol/L (22-30); Chloride 103 mmol/L (98-107); Glucose 124 mg/dL (74-99); Non-African American GFR(CKD) 9 (>60 ml/min/1.73 sqM); Potassium 5.8 mmol/L (3.5-5.1); Sodium 138 mmol/L (137-145); Total Bilirubin 0.7 mg/dL (0.2-1.3); Total Protein 5.5 g/dL (6.3-8.2)
--- NOTE | 2023-11-10 10:05 | P.PN ---
Subjective Patient is seen in follow-up for end-stage renal disease. 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 He refused another treatment. Scheduled to undergo dialysis today. Currently on high flow nasal cannula. Vital signs are stable. General: No acute distress. HEENT: Head exam is unremarkable. On high flow nasal cannula. LUNGS: Scattered rhonchi. HEART: Rate and Rhythm are regular. ABDOMEN: Nontender. EXTREMITITES: Trace edema. Objective - Vital Signs Vital signs: Vital Signs Temp 97.1 F L 11/10/23 04:00 Pulse 75 11/10/23 08:07 Resp 22 11/10/23 04:00 BP 99/60 11/10/23 04:00 Pulse Ox 97 11/10/23 07:51 FiO2 50 11/10/23 04:00 Intake & Output 11/09/23 11/10/23 11/10/23 18:59 06:59 18:59 Intake Total 500 120 Output Total 1500 Balance -1000 120 Weight 65.317 kg Intake: Oral 120 Hemodialysis 500 Output: Hemodialysis 1500 Other: Voiding Method Urinal Urinal Diaper # Voids 1 - Labs CBC & Chem 7: 11/10/23 07:55 11/10/23 07:55 Labs: Abnormal Lab Results - Last 24 Hours (Table) 11/09/23 11/09/23 11/09/23 Range/Units 13:02 13:02 13:02 RBC 4.07 L (4.30-5.90) m/uL Hgb 12.2 L (13.0-17.5) gm/dL Hct 38.5 L (39.0-53.0) % Plt Count 128 L (150-450) k/uL Lymphocytes # 0.2 L (1.0-4.8) k/uL PT 25.3 H (10.0-12.5) sec INR 2.6 H (<1.2) Potassium (3.5-5.1) mmol/L BUN (9-20) mg/dL Creatinine (0.66-1.25) mg/dL Glucose (74-99) mg/dL POC Glucose (mg/dL) (70-110) mg/dL Calcium (8.4-10.2) mg/dL Phosphorus 5.7 H (2.5-4.5) mg/dL Total Protein (6.3-8.2) g/dL Albumin (3.5-5.0) g/dL 11/09/23 11/10/23 11/10/23 Range/Units 20:24 05:54 07:55 RBC 3.97 L (4.30-5.90) m/uL Hgb 11.9 L (13.0-17.5) gm/dL Hct 37.9 L (39.0-53.0) % Plt Count 142 L (150-450) k/uL Lymphocytes # 0.4 L (1.0-4.8) k/uL PT (10.0-12.5) sec INR (<1.2) Potassium (3.5-5.1) mmol/L BUN (9-20) mg/dL Creatinine (0.66-1.25) mg/dL Glucose (74-99) mg/dL POC Glucose (mg/dL) 136 H 129 H (70-110) mg/dL Calcium (8.4-10.2) mg/dL Phosphorus (2.5-4.5) mg/dL Total Protein (6.3-8.2) g/dL Albumin (3.5-5.0) g/dL 11/10/23 11/10/23 Range/Units 07:55 07:55 RBC (4.30-5.90) m/uL Hgb (13.0-17.5) gm/dL Hct (39.0-53.0) % Plt Count (150-450) k/uL Lymphocytes # (1.0-4.8) k/uL PT 29.1 H (10.0-12.5) sec INR 3.0 H (<1.2) Potassium 5.8 H (3.5-5.1) mmol/L BUN 58 H (9-20) mg/dL Creatinine 5.22 H (0.66-1.25) mg/dL Glucose 124 H (74-99) mg/dL POC Glucose (mg/dL) (70-110) mg/dL Calcium 8.2 L (8.4-10.2) mg/dL Phosphorus (2.5-4.5) mg/dL Total Protein 5.5 L (6.3-8.2) g/dL Albumin 3.1 L (3.5-5.0) g/dL Assessment and Plan Plan: Assessment: 1. End-stage renal disease maintained on hemodialysis on Monday schedule via right femoral catheter. 2. Noncompliance with hemodialysis. 3. Fluid overload. 4. Acute on chronic systolic CHF status post AICD placement. Ejection fraction 10 to 15% with moderate MR, AI, TR and PI. 5. Acute hypoxic respiratory failure. 6. Coronary artery disease status post CABG. 7. Chronic kidney disease mineral bone disease. Phosphorus level 4.4 dated November 09, 2023. 8. Hyperkalemia secondary to chronic kidney disease and Entresto. Expect improvement postdialysis. Plan: Hemodialysis today and again tomorrow for fluid overload. Maintain midodrine. Hold for systolic blood pressure greater than 115. Wean FiO2. Prognosis guarded.
[2023-11-10] MEDS: MIDODRINE 5 MG TAB PO STA (10:59)
--- NOTE | 2023-11-10 11:26 | P.PN ---
Subjective Progress Note Date: 11/10/23 Principal diagnosis: Shortness of breath. I am seeing this patient in consultation today November 09, 2023 in the emergency room after missing hemodialysis earlier in the week. He was severely short of breath and in a fluid overload state. Patient is a 88-year-old male with past medical history significant for chronic systolic congestive heart failure, end- stage renal disease receiving hemodialysis 3 times a week (T, TH, Mon), COPD, coronary artery disease with previous CABG, ischemic cardiomyopathy with AICD/pacemaker, diabetes, hyperlipidemia, hypertension, atrial fibrillation, mantle cell lymphoma with previous chemotherapy, among other things. Patient presented to the emergency room yesterday afternoon with mostly complaints of shortness of breath. He reportedly received half a treatment of hemodialysis on Monday and was unable to go to hemodialysis on Monday. He is in a significant fluid overload state. Denies any infectious like symptoms. Denies any chest pain, heart palpitations, syncope. Chest x-ray done on arrival showed cardiomegaly, pulmonary vascular congestion, and bilateral pleural effusions. There is an AICD. Follow-up chest CT redemonstrates the above-mentioned findings. There is stable small left-sided pleural effusion which appears loculated and a small to moderate size right pleural effusion that is increased in size. There is a mosaic attenuation suggesting bilateral edema with slight nodularity raising concern for superimposed atypical infection, however, there is definitive CHF exacerbation. On my evaluation, the patient is on a 50% Ventimask, he is surprisingly not in any distress. SpO2 is 90 to 92%. There is marked lower extremity pitting edema. NT proBNP was 195,000. He does have a right femoral hemodialysis catheter. Blood pressure is normotensive at this time. Heart rhythm is V paced. CBC on arrival: WC count of 6.7, hemoglobin 12.7, hematocrit 39.5, platelets 155. BMP on arrival: Sodium 137, potassium 4.8, chloride 100, serum bicarb 22, BUN 54, creatinine 5.17, glucose 104. Patient does take warfarin outpatient. INR therapeutic at 2.2. Troponin 0.017. Negative for influenza, RSV, COVID. Patient is awaiting stat hemodialysis. Prognosis is guarded related to above-mentioned comorbidities. Progress note dated November 10, 2023. This is a patient who was seen in consultation yesterday. The patient has a large right pleural effusion. Currently, he is on 10 L high flow O2. He is not receiving any IV fluids. He did use his BiPAP last night, with settings of 10/5, and 50%. Currently, he is on 10 L high flow. An ultrasound of the chest reveals a large right-sided pleural effusion, measuring 10 cm. The patient's Coumadin will be held, and the patient will likely have thoracentesis, either Monday or Monday. White count is 5.4, hemoglobin 9.9, hematocrit 37.9, and platelet count 142,000. PT is 29.1 with INR 3. Sodium 138, potassium 5.8, chlorides 103, CO2 22, BUN 58, creatinine 5.22. The albumin is 3.1. Chest ultrasound was reviewed. Objective - Vital Signs Vital signs: Vital Signs Temp 97.1 F L 11/10/23 04:00 Pulse 75 11/10/23 08:07 Resp 22 11/10/23 04:00 BP 99/60 11/10/23 04:00 Pulse Ox 97 11/10/23 07:51 FiO2 50 11/10/23 04:00 Intake & Output 11/09/23 11/10/23 11/10/23 18:59 06:59 18:59 Intake Total 500 120 Output Total 1500 Balance -1000 120 Weight 65.317 kg Intake: Oral 120 Hemodialysis 500 Output: Hemodialysis 1500 Other: Voiding Method Urinal Urinal Diaper # Voids 1 - Exam No acute distress, oriented 3. Currently on high flow nasal cannula. HEENT examination is grossly unremarkable. Mucous membranes are moist. No oral lesions. Neck supple. Full range of motion. No adenopathy thyromegaly or neck vein distention. Cardiovascular examination reveals regular rhythm rate. S1-S2 normal. No S3 or S4. No discernible murmur noted. Heart rate is 90 bpm. Lungs reveal bibasilar crackles. Breath sounds are diminished on the right. No wheezes. Saturations are 95% on 10 L high flow oxygen. Abdomen soft bowel sounds are heard. No masses or tenderness. Extremities are intact. No cyanosis clubbing or edema. Skin is without rash or lesion. Neurologic examination is brief but nonfocal. - Labs CBC & Chem 7: 11/10/23 07:55 11/10/23 07:55 Labs: Abnormal Lab Results - Last 24 Hours (Table) 11/09/23 11/09/23 11/09/23 Range/Units 13:02 13:02 13:02 RBC 4.07 L (4.30-5.90) m/uL Hgb 12.2 L (13.0-17.5) gm/dL Hct 38.5 L (39.0-53.0) % Plt Count 128 L (150-450) k/uL Lymphocytes # 0.2 L (1.0-4.8) k/uL PT 25.3 H (10.0-12.5) sec INR 2.6 H (<1.2) Potassium (3.5-5.1) mmol/L BUN (9-20) mg/dL Creatinine (0.66-1.25) mg/dL Glucose (74-99) mg/dL POC Glucose (mg/dL) (70-110) mg/dL Calcium (8.4-10.2) mg/dL Phosphorus 5.7 H (2.5-4.5) mg/dL Total Protein (6.3-8.2) g/dL Albumin (3.5-5.0) g/dL 11/09/23 11/10/23 11/10/23 Range/Units 20:24 05:54 07:55 RBC 3.97 L (4.30-5.90) m/uL Hgb 11.9 L (13.0-17.5) gm/dL Hct 37.9 L (39.0-53.0) % Plt Count 142 L (150-450) k/uL Lymphocytes # 0.4 L (1.0-4.8) k/uL PT (10.0-12.5) sec INR (<1.2) Potassium (3.5-5.1) mmol/L BUN (9-20) mg/dL Creatinine (0.66-1.25) mg/dL Glucose (74-99) mg/dL POC Glucose (mg/dL) 136 H 129 H (70-110) mg/dL Calcium (8.4-10.2) mg/dL Phosphorus (2.5-4.5) mg/dL Total Protein (6.3-8.2) g/dL Albumin (3.5-5.0) g/dL 11/10/23 11/10/23 Range/Units 07:55 07:55 RBC (4.30-5.90) m/uL Hgb (13.0-17.5) gm/dL Hct (39.0-53.0) % Plt Count (150-450) k/uL Lymphocytes # (1.0-4.8) k/uL PT 29.1 H (10.0-12.5) sec INR 3.0 H (<1.2) Potassium 5.8 H (3.5-5.1) mmol/L BUN 58 H (9-20) mg/dL Creatinine 5.22 H (0.66-1.25) mg/dL Glucose 124 H (74-99) mg/dL POC Glucose (mg/dL) (70-110) mg/dL Calcium 8.2 L (8.4-10.2) mg/dL Phosphorus (2.5-4.5) mg/dL Total Protein 5.5 L (6.3-8.2) g/dL Albumin 3.1 L (3.5-5.0) g/dL Assessment and Plan Assessment: Acute hypoxemic respiratory failure, secondary to fluid overload related to missing hemodialysis earlier in the week and an exacerbation of chronic systolic congestive heart failure. History of ischemic cardiomyopathy, with a baseline ejection fraction less than 20%, status post AICD/pacemaker. End-stage renal disease, maintained on hemodialysis 3 times a week (, , MON). Coronary artery disease, with previous CABG. Diabetes mellitus. History of hyperlipidemia. History of hypertension. History of atrial fibrillation, anticoagulated on warfarin. History of hypothyroidism. History of mantle cell lymphoma with previous chemotherapy. History of chronic obstructive pulmonary disease, stable. Plan: Plan dated November 10, 2023. The patient has bilateral pleural effusions, right greater than left. In fact the right pleural effusion is 10 cm. The patient's Coumadin will be held. Will do a daily PT/INR. Once it is safe to do a thoracentesis, it will be performed. This was explained to the patient, and he does agree. Labs, x-rays, and medications are reviewed. The patient's overall prognosis remains guarded. We will continue to follow make recommendations along the way. Time with Patient: Less than 30
[2023-11-10 11:31] LABS: Glucose,Whole Blood 126 mg/dL (70-110)
--- NOTE | 2023-11-10 14:19 | P.PN ---
Subjective Progress Note Date: 11/10/23 Consult reason: congestive heart failure, shortness of breath Chief complaint: shortness of breath History of present illness: History of present illness: Patient is a pleasant 88-year-old male with significant past medical history of CAD with prior CABG, ischemic cardiomyopathy with previous AICD implantation, systolic heart failure, hypertension, hyperlipidemia, paroxysmal atrial fibrillation, end-stage renal disease on dialysis who presented to the emergency department with worsening shortness of breath. He does follow in the office with Dr. Carrera. He apparently had missed dialysis on Monday of this week because he had not been feeling well. He then proceeded to have worsening shortness of breath and feeling weak. He denies any chest pain or pressure. Denies any dizziness or syncope. He is currently on BiPAP. Echocardiogram today shows EF 10-15%, RVSP 42, severe LV dilation, moderate mitral regurgitatio n, moderate aortic insufficiency. Prior echo from 12/29 with ejection fraction 25%. He did have a prior Lexiscan stress test 08/29 that was reported negative. Labs reviewed: Sodium 136, potassium 4.3, creatinine 3.69, troponin normal x 1, BNP elevated [id number], INR 2.2. He underwent emergent dialysis this morning. He was planned for another 2 hours of hemodialysis today per nephrology however he has refused this. 2/ Patient states that he is feeling little better from yesterday. He is to un dergo hemodialysis today for blood pressure is low. He did receive Entresto this morning. This is not his normally scheduled dialysis today. Coumadin is currently on hold for thoracentesis which is expected to take place on Monday or Monday. Patient states that he has not been urinating very much. He is on IV Lasix 80 mg every 12 hours. Blood pressure 90/54, heart rate 70, pulse ox 100% on 7 L high flow nasal cannula. Repeat blood work reveals WBC 5.4, hemoglobin 0.9, platelet count 142. Sodium 138, potassium 5.8, BUN 58 and creatinine 5.22. PHYSICAL EXAMINATION: This is a 88-year-old male in no apparent distress at the time of my examination. HEENT: Head is atraumatic, normocephalic. Pupils are equal, round. Sclerae anicteric. Conjunctivae are clear. Mucous membranes of the mouth are moist. Neck is supple. There is no jugular venous distention. No carotid bruit is heard. CHEST EXAMINATION: Lungs are diminished with scattered wheezes, on BiPAP. No chest wall tenderness is noted on palpation or with deep breathing. HEART EXAMINATION: Heart regular rate and rhythm. S1, S2 heard. No murmurs, gallops or rub. ABDOMEN: Soft, nontender. Bowel sounds are heard. EXTREMITIES: 2+ peripheral pulses with +1 BLE edema and no calf tenderness noted. NEUROLOGIC EXAMINATION: Patient is awake, alert and oriented x3. IMPRESSION AND PLAN: Acute on chronic heart failure with reduced EF 10-15%, proBNP [id number] Ischemic cardiomyopathy with previous AICD implantation CAD with previous CABG End-stage renal disease on dialysis Hypertension Hyperlipidemia Paroxysmal atrial fibrillation Lower extremity edema Thrombocytopenia PLAN: Continue current cardiac medications Continue increased dose of Lasix 80 mg every 12 hours Monitor GUILLERMINA, daily weights, electrolytes and renal function Further recommendations as patient progresses. Recommend increasing Lasix to 80 mg IV twice daily and monitor response. Dialysis as per nephrology. We will follow. Objective - Vital Signs Vital signs: Vital Signs Temp 97.1 F L 11/10/23 04:00 Pulse 75 11/10/23 08:07 Resp 22 11/10/23 04:00 BP 99/60 11/10/23 04:00 Pulse Ox 97 11/10/23 07:51 FiO2 50 11/10/23 04:00 Intake & Output 11/09/23 11/10/23 11/10/23 18:59 06:59 18:59 Intake Total 500 120 Output Total 1500 Balance -1000 120 Weight 65.317 kg Intake: Oral 120 Hemodialysis 500 Output: Hemodialysis 1500 Other: Voiding Method Urinal Urinal Diaper # Voids 1 - Labs CBC & Chem 7: 11/10/23 07:55 11/10/23 07:55 Labs: Abnormal Lab Results - Last 24 Hours (Table) 11/09/23 11/09/23 11/09/23 Range/Units 13:02 13:02 13:02 RBC 4.07 L (4.30-5.90) m/uL Hgb 12.2 L (13.0-17.5) gm/dL Hct 38.5 L (39.0-53.0) % Plt Count 128 L (150-450) k/uL Lymphocytes # 0.2 L (1.0-4.8) k/uL PT 25.3 H (10.0-12.5) sec INR 2.6 H (<1.2) Potassium (3.5-5.1) mmol/L BUN (9-20) mg/dL Creatinine (0.66-1.25) mg/dL Glucose (74-99) mg/dL POC Glucose (mg/dL) (70-110) mg/dL Calcium (8.4-10.2) mg/dL Phosphorus 5.7 H (2.5-4.5) mg/dL Total Protein (6.3-8.2) g/dL Albumin (3.5-5.0) g/dL 11/09/23 11/10/23 11/10/23 Range/Units 20:24 05:54 07:55 RBC 3.97 L (4.30-5.90) m/uL Hgb 11.9 L (13.0-17.5) gm/dL Hct 37.9 L (39.0-53.0) % Plt Count 142 L (150-450) k/uL Lymphocytes # 0.4 L (1.0-4.8) k/uL PT (10.0-12.5) sec INR (<1.2) Potassium (3.5-5.1) mmol/L BUN (9-20) mg/dL Creatinine (0.66-1.25) mg/dL Glucose (74-99) mg/dL POC Glucose (mg/dL) 136 H 129 H (70-110) mg/dL Calcium (8.4-10.2) mg/dL Phosphorus (2.5-4.5) mg/dL Total Protein (6.3-8.2) g/dL Albumin (3.5-5.0) g/dL 11/10/23 11/10/23 Range/Units 07:55 07:55 RBC (4.30-5.90) m/uL Hgb (13.0-17.5) gm/dL Hct (39.0-53.0) % Plt Count (150-450) k/uL Lymphocytes # (1.0-4.8) k/uL PT 29.1 H (10.0-12.5) sec INR 3.0 H (<1.2) Potassium 5.8 H (3.5-5.1) mmol/L BUN 58 H (9-20) mg/dL Creatinine 5.22 H (0.66-1.25) mg/dL Glucose 124 H (74-99) mg/dL POC Glucose (mg/dL) (70-110) mg/dL Calcium 8.2 L (8.4-10.2) mg/dL Phosphorus (2.5-4.5) mg/dL Total Protein 5.5 L (6.3-8.2) g/dL Albumin 3.1 L (3.5-5.0) g/dL
[2023-11-10 16:07] LABS: Glucose,Whole Blood 118 mg/dL (70-110)
[2023-11-10] MEDS ORDERED: WARFARIN 1 MG TAB PO ONE (18:00)
[2023-11-10 19:56] LABS: Glucose,Whole Blood 133 mg/dL (70-110)
[2023-11-10] MEDS: SACUBITRIL/VALSARTAN 24 MG-26 MG TABLET PO SCH (21:53)
--- NOTE | 2023-11-11 04:52 | PN ---
PROGRESS NOTE SUBJECTIVE: An 88-year-old white male with end-stage renal disease, hypotensive today. He has a right large 10 cm perfusion on the right side of the lung, decided we can get thoracentesis Monday or Monday. White count is 5.4, hemoglobin is 9.9, platelets 142,000. INR is 3. Sodium 138, potassium 5.8, CO2 of 22, BUN 58, creatinine 5.22, albumin 3.1. OBJECTIVE: HEENT: Normocephalic, atraumatic. Pupils equal, round, reactive. VITAL SIGNS: O2 of 97% on FiO2 of 50. Blood pressure 99/60, pulse 75, respiratory rate 18 to 22, temp 97.1. LUNGS: Decreased breath sounds. ABDOMEN: Soft, nontender. EXTREMITIES: No cyanosis, clubbing, or edema. SKIN: No rash, excoriations, or lesions. CARDIOVASCULAR: S1, S2. No murmurs, rubs, or gallops. NECK: Supple. No mass. LABORATORY DATA: Hemoglobin 9.9, BUN is 58, creatinine 5.22, albumin 3.1. ASSESSMENT: Acute hypoxemic respiratory failure secondary to fluid overload, missing dialysis earlier in the week. Exacerbation of chronic systolic heart failure, ischemic cardiomyopathy, ejection fraction 20%, AICD, pacemaker, end-stage renal disease, coronary artery disease, diabetes mellitus, dyslipidemia, hypertension, atrial fibrillation, hypothyroidism. History of beta cell lymphoma, history of chronic obstructive pulmonary disease. Prognosis extremely guarded. Thoracentesis will be done. Hold his Coumadin, maybe reduce INR. May be on Monday we can tap his lung, get some fluid off and so his breathing improves. Continue with dialysis as tolerated. We will have to be careful due to the hypotension. Prognosis extremely guarded. MMODL / IJN: [id number] /
[2023-11-11 05:50] LABS: Glucose,Whole Blood 133 mg/dL (70-110)
[2023-11-11 09:34] LABS: INR 3.3 (<1.2); Prothrombin Time 32.4 sec (10.0-12.5)
--- NOTE | 2023-11-11 09:39 | P.PN ---
Subjective Progress Note Date: 11/11/23 Principal diagnosis: Shortness of breath. I am seeing this patient in consultation today November 09, 2023 in the emergency room after missing hemodialysis earlier in the week. He was severely short of breath and in a fluid overload state. Patient is a 88-year-old male with past medical history significant for chronic systolic congestive heart failure, end- stage renal disease receiving hemodialysis 3 times a week (T, TH, Mon), COPD, coronary artery disease with previous CABG, ischemic cardiomyopathy with AICD/pacemaker, diabetes, hyperlipidemia, hypertension, atrial fibrillation, mantle cell lymphoma with previous chemotherapy, among other things. Patient presented to the emergency room yesterday afternoon with mostly complaints of shortness of breath. He reportedly received half a treatment of hemodialysis on Monday and was unable to go to hemodialysis on Monday. He is in a significant fluid overload state. Denies any infectious like symptoms. Denies any chest pain, heart palpitations, syncope. Chest x-ray done on arrival showed cardiomegaly, pulmonary vascular congestion, and bilateral pleural effusions. There is an AICD. Follow-up chest CT redemonstrates the above-mentioned findings. There is stable small left-sided pleural effusion which appears loculated and a small to moderate size right pleural effusion that is increased in size. There is a mosaic attenuation suggesting bilateral edema with slight nodularity raising concern for superimposed atypical infection, however, there is definitive CHF exacerbation. On my evaluation, the patient is on a 50% Ventimask, he is surprisingly not in any distress. SpO2 is 90 to 92%. There is marked lower extremity pitting edema. NT proBNP was 195,000. He does have a right femoral hemodialysis catheter. Blood pressure is normotensive at this time. Heart rhythm is V paced. CBC on arrival: WC count of 6.7, hemoglobin 12.7, hematocrit 39.5, platelets 155. BMP on arrival: Sodium 137, potassium 4.8, chloride 100, serum bicarb 22, BUN 54, creatinine 5.17, glucose 104. Patient does take warfarin outpatient. INR therapeutic at 2.2. Troponin 0.017. Negative for influenza, RSV, COVID. Patient is awaiting stat hemodialysis. Prognosis is guarded related to above-mentioned comorbidities. Progress note dated November 10, 2023. This is a patient who was seen in consultation yesterday. The patient has a large right pleural effusion. Currently, he is on 10 L high flow O2. He is not receiving any IV fluids. He did use his BiPAP last night, with settings of 10/5, and 50%. Currently, he is on 10 L high flow. An ultrasound of the chest reveals a large right-sided pleural effusion, measuring 10 cm. The patient's Coumadin will be held, and the patient will likely have thoracentesis, either Monday or Monday. White count is 5.4, hemoglobin 9.9, hematocrit 37.9, and platelet count 142,000. PT is 29.1 with INR 3. Sodium 138, potassium 5.8, chlorides 103, CO2 22, BUN 58, creatinine 5.22. The albumin is 3.1. Chest ultrasound was reviewed. Progress note dated November 11, 2023. 88-year-old male seen in room 352. The patient is currently undergoing hemodialysis. He is on 6 L nasal cannula. No IV fluids. The patient's PT/INR today was 32.4 and 3.3 respectively. We will give the patient some vitamin K. Were hoping to do a thoracentesis on this patient. No additional labs today other than a glucose of 133. Clinically, the patient appears well. He denies being overwhelmingly short of breath. He does have an oxygen requirement, i.e. of 6 L. Objective - Vital Signs Vital signs: Vital Signs Temp 97.4 F L 11/10/23 20:00 Pulse 80 11/11/23 08:01 Resp 22 11/11/23 04:00 BP 92/57 11/11/23 04:00 Pulse Ox 97 11/11/23 04:00 FiO2 50 11/10/23 04:00 Intake & Output 11/10/23 11/11/23 11/11/23 18:59 06:59 18:59 Intake Total 760 0 Output Total 1900 Balance -1140 0 Intake: Oral 360 0 Hemodialysis 400 Output: Hemodialysis 1900 Other: Voiding Method Urinal Urinal Diaper Diaper # Voids 1 1 - Exam No acute distress, oriented 3. Currently on high flow nasal cannula. HEENT examination is grossly unremarkable. Mucous membranes are moist. No oral lesions. Neck supple. Full range of motion. No adenopathy thyromegaly or neck vein distention. Cardiovascular examination reveals regular rhythm rate. S1-S2 normal. No S3 or S4. No discernible murmur noted. Heart rate is 80 bpm. Lungs reveal bibasilar crackles. Breath sounds are diminished on the right. No wheezes. Saturations are 97% on 6 L high flow oxygen. Abdomen soft bowel sounds are heard. No masses or tenderness. Extremities are intact. No cyanosis clubbing or edema. Skin is without rash or lesion. Neurologic examination is brief but nonfocal. - Labs CBC & Chem 7: 11/10/23 07:55 11/10/23 07:55 Labs: Abnormal Lab Results - Last 24 Hours (Table) 11/10/23 11/10/23 11/10/23 Range/Units 07:55 11:30 16:06 PT (10.0-12.5) sec INR (<1.2) Potassium 5.8 H (3.5-5.1) mmol/L BUN 58 H (9-20) mg/dL Creatinine 5.22 H (0.66-1.25) mg/dL Glucose 124 H (74-99) mg/dL POC Glucose (mg/dL) 126 H 118 H (70-110) mg/dL Calcium 8.2 L (8.4-10.2) mg/dL Total Protein 5.5 L (6.3-8.2) g/dL Albumin 3.1 L (3.5-5.0) g/dL 11/10/23 11/11/23 11/11/23 Range/Units 19:54 05:47 07:05 PT 32.4 H (10.0-12.5) sec INR 3.3 H (<1.2) Potassium (3.5-5.1) mmol/L BUN (9-20) mg/dL Creatinine (0.66-1.25) mg/dL Glucose (74-99) mg/dL POC Glucose (mg/dL) 133 H 133 H (70-110) mg/dL Calcium (8.4-10.2) mg/dL Total Protein (6.3-8.2) g/dL Albumin (3.5-5.0) g/dL Assessment and Plan Assessment: Acute hypoxemic respiratory failure, secondary to fluid overload related to missing hemodialysis earlier in the week and an exacerbation of chronic systolic congestive heart failure. History of ischemic cardiomyopathy, with a baseline ejection fraction less than 20%, status post AICD/pacemaker. End-stage renal disease, maintained on hemodialysis 3 times a week (T, TH, SAT). Coronary artery disease, with previous CABG. Diabetes mellitus. History of hyperlipidemia. History of hypertension. History of atrial fibrillation, anticoagulated on warfarin. History of hypothyroidism. History of mantle cell lymphoma with previous chemotherapy. History of chronic obstructive pulmonary disease, stable. Plan: Plan dated November 10, 2023. The patient has bilateral pleural effusions, right greater than left. In fact the right pleural effusion is 10 cm. The patient's Coumadin will be held. Will do a daily PT/INR. Once it is safe to do a thoracentesis, it will be performed. This was explained to the patient, and he does agree. Labs, x-rays, and medications are reviewed. The patient's overall prognosis remains guarded. We will continue to follow make recommendations along the way. Plan dated November 11, 2023. The patient's INR actually went up. The patient will get a small dose of vitamin K. Hopefully, we can do the thoracentesis tomorrow. The patient is in no clinical distress and actually his oxygen requirements have come down. The patient is having hemodialysis today. Additional recommendations and suggestions are forthcoming. Prognosis is guarded. Labs, x-rays, and medications are reviewed. We will continue to follow the patient, and make recommendations along the way. Time with Patient: Less than 30
--- NOTE | 2023-11-11 10:04 | P.PN ---
Subjective Progress Note Date: 11/11/23 Consult reason: congestive heart failure, shortness of breath Chief complaint: shortness of breath History of present illness: History of present illness: Patient is a pleasant 88-year-old male with significant past medical history of CAD with prior CABG, ischemic cardiomyopathy with previous AICD implantation, systolic heart failure, hypertension, hyperlipidemia, paroxysmal atrial fibrillation, end-stage renal disease on dialysis who presented to the emergency department with worsening shortness of breath. He does follow in the office with Dr. Carrera. He apparently had missed dialysis on Monday of this week because he had not been feeling well. He then proceeded to have worsening shortness of breath and feeling weak. He denies any chest pain or pressure. Denies any dizziness or syncope. He is currently on BiPAP. Echocardiogram today shows EF 10-15%, RVSP 42, severe LV dilation, moderate mitral regurgitatio n, moderate aortic insufficiency. Prior echo from 12/29 with ejection fraction 25%. He did have a prior Lexiscan stress test 08/29 that was reported negative. Labs reviewed: Sodium 136, potassium 4.3, creatinine 3.69, troponin normal x 1, BNP elevated [id number], INR 2.2. He underwent emergent dialysis this morning. He was planned for another 2 hours of hemodialysis today per nephrology however he has refused this. 11/10 Patient states that he is feeling little better from yesterday. He is to un dergo hemodialysis today for blood pressure is low. He did receive Entresto this morning. This is not his normally scheduled dialysis today. Coumadin is currently on hold for thoracentesis which is expected to take place on Monday or Monday. Patient states that he has not been urinating very much. He is on IV Lasix 80 mg every 12 hours. Blood pressure 90/54, heart rate 70, pulse ox 100% on 7 L high flow nasal cannula. Repeat blood work reveals WBC 5.4, hemoglobin 0.9, platelet count 142. Sodium 138, potassium 5.8, BUN 58 and creatinine 5.22. 11/11 Coumadin remains on hold for thoracentesis to be performed soon. INR 3.3 same we change his Entresto yesterday. Patient is maintained on IV Lasix 80 mg IV every 12 hours. Yesterday, we decreased Entresto to half dose due to hypotension. Blood pressure today is at 92/57, heart rates in the 70s and 80s, pulse ox 97% on 6 L nasal cannula. Patient underwent hemodialysis yesterday and is scheduled again today. PHYSICAL EXAMINATION: This is a 88-year-old male in no apparent distress at the time of my examination. HEENT: Head is atraumatic, normocephalic. Pupils are equal, round. Sclerae anicteric. Conjunctivae are clear. Mucous membranes of the mouth are moist. Neck is supple. There is no jugular venous distention. No carotid bruit is heard. CHEST EXAMINATION: Lungs are diminished with scattered wheezes, on BiPAP. No chest wall tenderness is noted on palpation or with deep breathing. HEART EXAMINATION: Heart regular rate and rhythm. S1, S2 heard. No murmurs, gallops or rub. ABDOMEN: Soft, nontender. Bowel sounds are heard. EXTREMITIES: 2+ peripheral pulses with +1 BLE edema and no calf tenderness noted. NEUROLOGIC EXAMINATION: Patient is awake, alert and oriented x3. IMPRESSION AND PLAN: Acute on chronic heart failure with reduced EF 10-15%, proBNP [id number] Ischemic cardiomyopathy with previous AICD implantation CAD with previous CABG End-stage renal disease on hemodialysis Hypertension Hyperlipidemia Paroxysmal atrial fibrillation Lower extremity edema Thrombocytopenia PLAN: Continue current cardiac medications Continue increased dose of Lasix 80 mg every 12 hours Monitor GUILLERMINA, daily weights, electrolytes and renal function Continue other cardiac medications Entresto decreased to half tablet twice daily on 11/10 due to hypotension Further recommendations as patient progresses. Recommend increasing Lasix to 80 mg IV twice daily and monitor response. Dialysis as per nephrology. We will follow. Objective - Vital Signs Vital signs: Vital Signs Temp 97.4 F L 11/10/23 20:00 Pulse 80 11/11/23 08:01 Resp 22 11/11/23 04:00 BP 92/57 11/11/23 04:00 Pulse Ox 97 11/11/23 04:00 FiO2 50 11/10/23 04:00 Intake & Output 11/10/23 11/11/23 11/11/23 18:59 06:59 18:59 Intake Total 760 0 Output Total 1900 Balance -1140 0 Intake: Oral 360 0 Hemodialysis 400 Output: Hemodialysis 1900 Other: Voiding Method Urinal Urinal Diaper Diaper # Voids 1 1 - Labs CBC & Chem 7: 11/10/23 07:55 11/10/23 07:55 Labs: Abnormal Lab Results - Last 24 Hours (Table) 11/10/23 11/10/23 11/10/23 Range/Units 07:55 07:55 07:55 RBC 3.97 L (4.30-5.90) m/uL Hgb 11.9 L (13.0-17.5) gm/dL Hct 37.9 L (39.0-53.0) % Plt Count 142 L (150-450) k/uL Lymphocytes # 0.4 L (1.0-4.8) k/uL PT 29.1 H (10.0-12.5) sec INR 3.0 H (<1.2) Potassium 5.8 H (3.5-5.1) mmol/L BUN 58 H (9-20) mg/dL Creatinine 5.22 H (0.66-1.25) mg/dL Glucose 124 H (74-99) mg/dL POC Glucose (mg/dL) (70-110) mg/dL Calcium 8.2 L (8.4-10.2) mg/dL Total Protein 5.5 L (6.3-8.2) g/dL Albumin 3.1 L (3.5-5.0) g/dL 11/10/23 11/10/23 11/10/23 Range/Units 11:30 16:06 19:54 RBC (4.30-5.90) m/uL Hgb (13.0-17.5) gm/dL Hct (39.0-53.0) % Plt Count (150-450) k/uL Lymphocytes # (1.0-4.8) k/uL PT (10.0-12.5) sec INR (<1.2) Potassium (3.5-5.1) mmol/L BUN (9-20) mg/dL Creatinine (0.66-1.25) mg/dL Glucose (74-99) mg/dL POC Glucose (mg/dL) 126 H 118 H 133 H (70-110) mg/dL Calcium (8.4-10.2) mg/dL Total Protein (6.3-8.2) g/dL Albumin (3.5-5.0) g/dL 11/11/23 Range/Units 05:47 RBC (4.30-5.90) m/uL Hgb (13.0-17.5) gm/dL Hct (39.0-53.0) % Plt Count (150-450) k/uL Lymphocytes # (1.0-4.8) k/uL PT (10.0-12.5) sec INR (<1.2) Potassium (3.5-5.1) mmol/L BUN (9-20) mg/dL Creatinine (0.66-1.25) mg/dL Glucose (74-99) mg/dL POC Glucose (mg/dL) 133 H (70-110) mg/dL Calcium (8.4-10.2) mg/dL Total Protein (6.3-8.2) g/dL Albumin (3.5-5.0) g/dL
--- NOTE | 2023-11-11 10:21 | P.PN ---
Subjective Progress Note Date: 11/11/23 Patient is seen in follow-up for end-stage renal disease. Had HD completed yesterday with 1.9L removed. Vital signs are stable. General: No acute distress. HEENT: Head exam is unremarkable. On high flow nasal cannula. LUNGS: Scattered rhonchi. HEART: Rate and Rhythm are regular. ABDOMEN: Nontender. EXTREMITITES: Trace edema. Objective - Vital Signs Vital signs: Vital Signs Temp 97.4 F L 11/10/23 20:00 Pulse 80 11/11/23 08:01 Resp 22 11/11/23 04:00 BP 92/57 11/11/23 04:00 Pulse Ox 97 11/11/23 04:00 FiO2 50 11/10/23 04:00 Intake & Output 11/10/23 11/11/23 11/11/23 18:59 06:59 18:59 Intake Total 760 0 Output Total 1900 Balance -1140 0 Intake: Oral 360 0 Hemodialysis 400 Output: Hemodialysis 1900 Other: Voiding Method Urinal Urinal Diaper Diaper # Voids 1 1 # Bowel Movements 1 - Labs CBC & Chem 7: 11/10/23 07:55 11/10/23 07:55 Labs: Abnormal Lab Results - Last 24 Hours (Table) 11/10/23 11/10/23 11/10/23 Range/Units 11:30 16:06 19:54 PT (10.0-12.5) sec INR (<1.2) POC Glucose (mg/dL) 126 H 118 H 133 H (70-110) mg/dL 11/11/23 11/11/23 Range/Units 05:47 07:05 PT 32.4 H (10.0-12.5) sec INR 3.3 H (<1.2) POC Glucose (mg/dL) 133 H (70-110) mg/dL Assessment and Plan Plan: Assessment: 1. End-stage renal disease maintained on hemodialysis on Monday schedule via right femoral catheter. 2. Noncompliance with hemodialysis. 3. Fluid overload. 4. Acute on chronic systolic CHF status post AICD placement. Ejection fraction 10 to 15% with moderate MR, AI, TR and PI. 5. Acute hypoxic respiratory failure. 6. Coronary artery disease status post CABG. 7. Chronic kidney disease mineral bone disease. Phosphorus level 4.4 dated Nov ruary 2023. 8. Hyperkalemia secondary to chronic kidney disease and Entresto. Expect improvement postdialysis. Plan: Hemodialysis today to maintain TTS schedule Maintain midodrine. Hold for systolic blood pressure greater than 115. Wean FiO2. Prognosis guarded.
[2023-11-11 11:39] LABS: Glucose,Whole Blood 97 mg/dL (70-110)
[2023-11-11] MEDS: PHYTONADIONE ORAL 5 MG/5 ML ORAL.SYRG PO STA (12:42)
[2023-11-11 16:31] LABS: Glucose,Whole Blood 151 mg/dL (70-110)
[2023-11-11] MEDS: methylPREDNISolone SOD SUCCI 40 MG/ML 1 ML VIAL IV SCH (17:01)
[2023-11-11] MEDS: WARFARIN 0.5 MG TAB PO ONE (17:02)
[2023-11-11] MEDS ORDERED: WARFARIN 2.5 MG TAB PO SCH (18:00)
--- NOTE | 2023-11-11 19:13 | PN ---
PROGRESS NOTE SUBJECTIVE: This is an 88-year-old white male. He is getting maybe a liter dialysis today. He is having hard times due to hypotension. Stopped the dialysis due to hypotension today. Yesterday 1.5 L removed. OBJECTIVE: VITAL SIGNS: As mentioned, his blood pressure really low about 89 to 90/60, pulse 80, respiratory rate 18 to 20, and O2 saturation 97%. HEENT: Normocephalic and atraumatic. LUNGS: Clear. GI: Soft. HEMATOLOGY: Negative Homans. PSYCH: Fair mood and affect. NEUROLOGIC: Awake, alert, and oriented x3. End-stage renal disease, 3 times a week dialysis; fluid overload; CHF acute on chronic; systolic ejection fraction; acute hypoxic respiratory failure; coronary artery disease, status post CABG; right disease; hyperkalemia; COPD; and pulmonary hypertension. We are going to keep him on his breathing treatments. Continue midodrine and monitor him. PROGNOSIS: Extremely guarded due to hypotension. MMODL / IJN: [id number] /
[2023-11-11 20:18] LABS: Glucose,Whole Blood 169 mg/dL (70-110)
[2023-11-11] MEDS: FORMOTEROL FUMARATE 20 MCG/2 ML NEBU INHALATION SCH (20:52)
[2023-11-12 06:02] LABS: Glucose,Whole Blood 151 mg/dL (70-110)
--- NOTE | 2023-11-12 09:01 | P.PN ---
Subjective Progress Note Date: 11/12/23 live is seen in follow-up for end-stage renal disease. Still feels short of breath after HD yesterday. Hoping to undergo thoracentesis. Vital signs are stable. General: No acute distress. HEENT: Head exam is unremarkable. On high flow nasal cannula. LUNGS: Scattered rhonchi. HEART: Rate and Rhythm are regular. ABDOMEN: Nontender. EXTREMITITES: Trace edema. Objective - Vital Signs Vital signs: Vital Signs Temp 97.9 F 11/11/23 20:00 Pulse 73 11/12/23 03:48 Resp 22 11/12/23 03:48 BP 92/51 11/12/23 03:48 Pulse Ox 98 11/12/23 03:48 FiO2 50 11/10/23 04:00 Intake & Output 11/11/23 11/12/23 11/12/23 18:59 06:59 18:59 Intake Total 100 0 Balance 100 0 Intake: Intake, IV Titration 100 Amount Piperacillin-Tazobactam 3 100 .375 gm In Sodium Chloride 0.9% 100 ml @ 25 mls/hr IVPB Q12H [facility] Rx# :[id number] Oral 0 Other: Voiding Method Urinal Diaper Diaper # Voids 1 # Bowel Movements 1 - Labs CBC & Chem 7: 11/10/23 07:55 11/12/23 08:51 Labs: Abnormal Lab Results - Last 24 Hours (Table) 11/11/23 11/11/23 11/11/23 Range/Units 07:05 16:30 20:16 PT 32.4 H (10.0-12.5) sec INR 3.3 H (<1.2) POC Glucose (mg/dL) 151 H 169 H (70-110) mg/dL 11/12/23 Range/Units 06:00 PT (10.0-12.5) sec INR (<1.2) POC Glucose (mg/dL) 151 H (70-110) mg/dL Assessment and Plan Plan: Assessment: 1. End-stage renal disease maintained on hemodialysis on Monday schedule via right femoral catheter. 2. Noncompliance with hemodialysis. 3. Fluid overload. 4. Acute on chronic systolic CHF status post AICD placement. Ejection fraction 10 to 15% with moderate MR, AI, TR and PI. 5. Acute hypoxic respiratory failure likely related to pleural effusions. 6. Coronary artery disease status post CABG. 7. Chronic kidney disease mineral bone disease. Phosphorus level 4.4 dated November 09, 2023. 8. Hyperkalemia secondary to chronic kidney disease and Entresto. Expect improvement postdialysis. Plan: Hemodialysis today to maintain TTS schedule, will reassess tomorrow for possible need of extra session given volume overload. Maintain midodrine. Hold for systolic blood pressure greater than 115. Wean FiO2. Recommend right throacentesis as HD will not help resolve pleural effusion quickly. Prognosis guarded.
[2023-11-12 09:57] LABS: INR 1.9 (<1.2)
[2023-11-12 10:06] LABS: ALT 17 U/L (4-49); AST 20 U/L (17-59); African American GFR (CKD) 25 (>60 ml/min/1.73 sqM); Albumin 3.1 g/dL (3.5-5.0); Alkaline Phosphatase 79 U/L (38-126); Anion Gap 9 mmol/L; Blood Urea Nitrogen 29 mg/dL (9-20); Calcium 8.3 mg/dL (8.4-10.2); Carbon Dioxide 27 mmol/L (22-30); Chloride 98 mmol/L (98-107); Glucose 165 mg/dL (74-99); Non-African American GFR(CKD) 22 (>60 ml/min/1.73 sqM); Potassium 3.8 mmol/L (3.5-5.1); Sodium 134 mmol/L (137-145); Total Protein 5.5 g/dL (6.3-8.2)
--- NOTE | 2023-11-12 11:13 | XR ---
EXAMINATION TYPE: XR chest 1V portable DATE OF EXAM: 11/12/2023 HISTORY: Shortness of breath. COMPARISON: 11/08/2023 TECHNIQUE: Single view of the chest is submitted. FINDINGS: Demonstrated are scattered senescent parenchymal change. Pulmonary venous congestion with scattered interstitial edema and small effusions. Hilar and mediastinal structures are within normal limits. Degenerative changes are seen of the dorsal spine. IMPRESSION: 1. Findings compatible with congestive failure. No evidence for pneumothorax status post thoracentes is.
[2023-11-12 11:50] LABS: Basophils % (A) 0 %; Eosinophils % (A) 0 %; HCT 38.4 % (39.0-53.0); Hypochromasia Slight; Lymphocytes # (A) 0.3 k/uL (1.0-4.8); Lymphocytes % (A) 4 %; MCH 29.7 pg (25.0-35.0); MCHC 31.3 g/dL (31.0-37.0); MCV 94.8 fL (80.0-100.0); Mean Platelet Volume 8.4; Monocytes # (A) 0.2 k/uL (0-1.0); Monocytes % (A) 4 %; Neutrophils # (A) 5.6 k/uL (1.3-7.7); Neutrophils % (A) 91 %; Platelet Count 128 k/uL (150-450); RBC 4.06 m/uL (4.30-5.90); RDW 15.5 % (11.5-15.5); WBC 6.1 k/uL (3.8-10.6)
--- NOTE | 2023-11-12 11:58 | P.PN ---
Subjective Progress Note Date: 11/12/23 Principal diagnosis: Shortness of breath. I am seeing this patient in consultation today November 09, 2023 in the emergency room after missing hemodialysis earlier in the week. He was severely short of breath and in a fluid overload state. Patient is a 88-year-old male with past medical history significant for chronic systolic congestive heart failure, end- stage renal disease receiving hemodialysis 3 times a week (T, TH, Mon), COPD, coronary artery disease with previous CABG, ischemic cardiomyopathy with AICD/pacemaker, diabetes, hyperlipidemia, hypertension, atrial fibrillation, mantle cell lymphoma with previous chemotherapy, among other things. Patient presented to the emergency room yesterday afternoon with mostly complaints of shortness of breath. He reportedly received half a treatment of hemodialysis on Monday and was unable to go to hemodialysis on Monday. He is in a significant fluid overload state. Denies any infectious like symptoms. Denies any chest pain, heart palpitations, syncope. Chest x-ray done on arrival showed cardiomegaly, pulmonary vascular congestion, and bilateral pleural effusions. There is an AICD. Follow-up chest CT redemonstrates the above-mentioned findings. There is stable small left-sided pleural effusion which appears loculated and a small to moderate size right pleural effusion that is increased in size. There is a mosaic attenuation suggesting bilateral edema with slight nodularity raising concern for superimposed atypical infection, however, there is definitive CHF exacerbation. On my evaluation, the patient is on a 50% Ventimask, he is surprisingly not in any distress. SpO2 is 90 to 92%. There is marked lower extremity pitting edema. NT proBNP was 195,000. He does have a right femoral hemodialysis catheter. Blood pressure is normotensive at this time. Heart rhythm is V paced. CBC on arrival: WC count of 6.7, hemoglobin 12.7, hematocrit 39.5, platelets 155. BMP on arrival: Sodium 137, potassium 4.8, chloride 100, serum bicarb 22, BUN 54, creatinine 5.17, glucose 104. Patient does take warfarin outpatient. INR therapeutic at 2.2. Troponin 0.017. Negative for influenza, RSV, COVID. Patient is awaiting stat hemodialysis. Prognosis is guarded related to above-mentioned comorbidities. Progress note dated November 10, 2023. This is a patient who was seen in consultation yesterday. The patient has a large right pleural effusion. Currently, he is on 10 L high flow O2. He is not receiving any IV fluids. He did use his BiPAP last night, with settings of 10/5, and 50%. Currently, he is on 10 L high flow. An ultrasound of the chest reveals a large right-sided pleural effusion, measuring 10 cm. The patient's Coumadin will be held, and the patient will likely have thoracentesis, either Monday or Monday. White count is 5.4, hemoglobin 9.9, hematocrit 37.9, and platelet count 142,000. PT is 29.1 with INR 3. Sodium 138, potassium 5.8, chlorides 103, CO2 22, BUN 58, creatinine 5.22. The albumin is 3.1. Chest ultrasound was reviewed. Progress note dated November 11, 2023. 88-year-old male seen in room 352. The patient is currently undergoing hemodialysis. He is on 6 L nasal cannula. No IV fluids. The patient's PT/INR today was 32.4 and 3.3 respectively. We will give the patient some vitamin K. Were hoping to do a thoracentesis on this patient. No additional labs today other than a glucose of 133. Clinically, the patient appears well. He denies being overwhelmingly short of breath. He does have an oxygen requirement, i.e. of 6 L. Progress note dated November 12, 2023. 88-year-old male who was seen in room 352. The patient is on 4 L of oxygen. He continues on Zosyn. His INR was 1.9. We did a right sided thoracentesis today. The patient tolerated the procedure well. His postthoracentesis chest x-ray, looked very good. He was feeling much better after the procedure. Current labs include a white count 6.1, hemoglobin 12, hematocrit 38.4, and platelet count 128,000. PT was 19. INR is 1.9. Sodium 134, potassium 3.8, chloride 98, CO2 27, BUN 29, creatinine 2.54. Albumin is 3.1. Calcium is 8.3. Objective - Vital Signs Vital signs: Vital Signs Temp 96.5 F L 11/12/23 08:00 Pulse 80 11/12/23 09:57 Resp 22 11/12/23 08:00 BP 75/49 11/12/23 08:00 Pulse Ox 97 11/12/23 09:34 FiO2 50 11/10/23 04:00 Intake & Output 11/11/23 11/12/23 11/12/23 18:59 06:59 18:59 Intake Total 100 0 Output Total 650 Balance 100 0 -650 Intake: Intake, IV Titration 100 Amount Piperacillin-Tazobactam 3 100 .375 gm In Sodium Chloride 0.9% 100 ml @ 25 mls/hr IVPB Q12H [facility] Rx# :[id number] Oral 0 Output: Drainage 650 Right Chest 650 Other: Voiding Method Urinal Diaper Diaper Diaper # Voids 1 # Bowel Movements 1 1 - Exam No acute distress, oriented 3. Currently on 4 L nasal cannula. HEENT examination is grossly unremarkable. Mucous membranes are moist. No oral lesions. Neck supple. Full range of motion. No adenopathy thyromegaly or neck vein distention. Cardiovascular examination reveals regular rhythm rate. S1-S2 normal. No S3 or S4. No discernible murmur noted. Heart rate is 80 bpm. Lungs reveal bibasilar crackles. Breath sounds are diminished on the right. No wheezes. Saturations are 97% on 4 L high flow oxygen. Abdomen soft bowel sounds are heard. No masses or tenderness. Extremities are intact. No cyanosis clubbing or edema. Skin is without rash or lesion. Neurologic examination is brief but nonfocal. - Labs CBC & Chem 7: 11/12/23 10:56 11/12/23 08:51 Labs: Abnormal Lab Results - Last 24 Hours (Table) 11/11/23 11/11/23 11/12/23 Range/Units 16:30 20:16 06:00 RBC (4.30-5.90) m/uL Hgb (13.0-17.5) gm/dL Hct (39.0-53.0) % Plt Count (150-450) k/uL Lymphocytes # (1.0-4.8) k/uL PT (10.0-12.5) sec INR (<1.2) Sodium (137-145) mmol/L BUN (9-20) mg/dL Creatinine (0.66-1.25) mg/dL Glucose (74-99) mg/dL POC Glucose (mg/dL) 151 H 169 H 151 H (70-110) mg/dL Calcium (8.4-10.2) mg/dL Total Protein (6.3-8.2) g/dL Albumin (3.5-5.0) g/dL 11/12/23 11/12/23 11/12/23 Range/Units 08:51 08:51 10:56 RBC 4.06 L (4.30-5.90) m/uL Hgb 12.0 L (13.0-17.5) gm/dL Hct 38.4 L (39.0-53.0) % Plt Count 128 L (150-450) k/uL Lymphocytes # 0.3 L (1.0-4.8) k/uL PT 19.0 H (10.0-12.5) sec INR 1.9 H (<1.2) Sodium 134 L (137-145) mmol/L BUN 29 H (9-20) mg/dL Creatinine 2.54 H (0.66-1.25) mg/dL Glucose 165 H (74-99) mg/dL POC Glucose (mg/dL) (70-110) mg/dL Calcium 8.3 L (8.4-10.2) mg/dL Total Protein 5.5 L (6.3-8.2) g/dL Albumin 3.1 L (3.5-5.0) g/dL Assessment and Plan Assessment: Acute hypoxemic respiratory failure, secondary to fluid overload related to missing hemodialysis earlier in the week and an exacerbation of chronic systolic congestive heart failure. S/P right thoracentesis, November 12, 2023. History of ischemic cardiomyopathy, with a baseline ejection fraction less than 20%, status post AICD/pacemaker. End-stage renal disease, maintained on hemodialysis 3 times a week (, , MON). Coronary artery disease, with previous CABG. Diabetes mellitus. History of hyperlipidemia. History of hypertension. History of atrial fibrillation, anticoagulated on warfarin. History of hypothyroidism. History of mantle cell lymphoma with previous chemotherapy. History of chronic obstructive pulmonary disease, stable. Plan: Plan dated November 10, 2023. The patient has bilateral pleural effusions, right greater than left. In fact the right pleural effusion is 10 cm. The patient's Coumadin will be held. Will do a daily PT/INR. Once it is safe to do a thoracentesis, it will be performed. This was explained to the patient, and he does agree. Labs, x-rays, and medica tions are reviewed. The patient's overall prognosis remains guarded. We will continue to follow make recommendations along the way. Plan dated November 11, 2023. The patient's INR actually went up. The patient will get a small dose of vitamin K. Hopefully, we can do the thoracentesis tomorrow. The patient is in no clinical distress and actually his oxygen requirements have come down. The patient is having hemodialysis today. Additional recommendations and suggestions are forthcoming. Prognosis is guarded. Labs, x-rays, and medications are reviewed. We will continue to follow the patient, and make recommendations along the way. Plan dated November 12, 2023. The patient's INR was 1.9. We did a right-sided thoracentesis on the patient today. He tolerated the procedure very well. His post thoracentesis chest x- ray, showed nearly no fluid in the right pleural space. There is no pneumothorax. Labs, x-rays, and medications are reviewed. We will continue to follow the patient, and make recommendations along the way. He currently is on 4 L of oxygen. He continues on Zosyn. Prognosis is guarded. Time with Patient: Less than 30
[2023-11-12 12:09] LABS: Glucose,Whole Blood 164 mg/dL (70-110)
--- NOTE | 2023-11-12 12:45 | P.PN ---
Subjective Progress Note Date: 11/12/23 Consult reason: congestive heart failure, shortness of breath Chief complaint: shortness of breath History of present illness: History of present illness: Patient is a pleasant 88-year-old male with significant past medical history of CAD with prior CABG, ischemic cardiomyopathy with previous AICD implantation, systolic heart failure, hypertension, hyperlipidemia, paroxysmal atrial fibrillation, end-stage renal disease on dialysis who presented to the emergency department with worsening shortness of breath. He does follow in the office with Dr. Carrera. He apparently had missed dialysis on Monday of this week because he had not been feeling well. He then proceeded to have worsening shortness of breath and feeling weak. He denies any chest pain or pressure. Denies any dizziness or syncope. He is currently on BiPAP. Echocardiogram today shows EF 10-15%, RVSP 42, severe LV dilation, moderate mitral regurgitatio n, moderate aortic insufficiency. Prior echo from 12/29 with ejection fraction 25%. He did have a prior Lexiscan stress test 08/29 that was reported negative. Labs reviewed: Sodium 136, potassium 4.3, creatinine 3.69, troponin normal x 1, BNP elevated [id number], INR 2.2. He underwent emergent dialysis this morning. He was planned for another 2 hours of hemodialysis today per nephrology however he has refused this. 11/10 Patient states that he is feeling little better from yesterday. He is to un dergo hemodialysis today for blood pressure is low. He did receive Entresto this morning. This is not his normally scheduled dialysis today. Coumadin is currently on hold for thoracentesis which is expected to take place on Monday or Monday. Patient states that he has not been urinating very much. He is on IV Lasix 80 mg every 12 hours. Blood pressure 90/54, heart rate 70, pulse ox 100% on 7 L high flow nasal cannula. Repeat blood work reveals WBC 5.4, hemoglobin 0.9, platelet count 142. Sodium 138, potassium 5.8, BUN 58 and creatinine 5.22. 11/11 Coumadin remains on hold for thoracentesis to be performed soon. INR 3.3. Patient is maintained on IV Lasix 80 mg IV every 12 hours. Yesterday, we decreased Entresto to half dose due to hypotension. Blood pressure today is at 92/57, heart rates in the 70s and 80s, pulse ox 97% on 6 L nasal cannula. Patient underwent hemodialysis yesterday and is scheduled again today. 11/12 Patient has been maintained on IV Lasix 80 mg every 12 hours. He underwent hemodialysis yesterday. Blood pressures have been low and patient maintained on midodrine 10 mg 3 times daily and Entresto was decreased to half tablet twice daily. Blood pressure this morning 92/51, heart rate in the 70s and 80s, pulse ox 98% on 5 L nasal cannula. Telemetry is paced rhythm. Patient underwent thoracentesis today with Dr. Hughes. Plan to resume Coumadin. PHYSICAL EXAMINATION: This is a 88-year-old male in no apparent distress at the time of my examination. HEENT: Head is atraumatic, normocephalic. Pupils are equal, round. Sclerae anicteric. Conjunctivae are clear. Mucous membranes of the mouth are moist. Neck is supple. There is no jugular venous distention. No carotid bruit is heard. CHEST EXAMINATION: Lungs are diminished with scattered wheezes, on BiPAP. No chest wall tenderness is noted on palpation or with deep breathing. HEART EXAMINATION: Heart regular rate and rhythm. S1, S2 heard. No murmurs, gallops or rub. ABDOMEN: Soft, nontender. Bowel sounds are heard. EXTREMITIES: 2+ peripheral pulses with minimal BLE edema and no calf tenderness noted. NEUROLOGIC EXAMINATION: Patient is awake, alert and oriented x3. IMPRESSION AND PLAN: Acute on chronic heart failure with reduced EF 10-15%, proBNP [id number] Ischemic cardiomyopathy with previous AICD implantation CAD with previous CABG End-stage renal disease on hemodialysis Hypertension Hyperlipidemia Paroxysmal atrial fibrillation Valvular heart disease with moderate MR, moderate AI, moderate TR, moderate PI Bilateral pleural effusions status postthoracentesis 11/12 Thrombocytopenia History of mantle cell lymphoma with previous chemotherapy COPD Hypothyroidism PLAN: Continue current cardiac medications Continue increased dose of Lasix 80 mg every 12 hours IV Monitor GUILLERMINA, daily weights, electrolytes and renal function Continue other cardiac medications Entresto decreased to half tablet twice daily on 11/10 due to hypotension Resume Coumadin, pharmacy to dose Further recommendations as patient progresses. Recommend increasing Lasix to 80 mg IV twice daily and monitor response. Dialysis as per nephrology. We will follow. Objective - Vital Signs Vital signs: Vital Signs Temp 97.9 F 11/11/23 20:00 Pulse 73 11/12/23 03:48 Resp 22 11/12/23 03:48 BP 92/51 11/12/23 03:48 Pulse Ox 98 11/12/23 03:48 FiO2 50 11/10/23 04:00 Intake & Output 11/11/23 11/12/23 11/12/23 18:59 06:59 18:59 Intake Total 100 0 Balance 100 0 Intake: Intake, IV Titration 100 Amount Piperacillin-Tazobactam 3 100 .375 gm In Sodium Chloride 0.9% 100 ml @ 25 mls/hr IVPB Q12H [facility] Rx# :[id number] Oral 0 Other: Voiding Method Urinal Diaper Diaper # Voids 1 # Bowel Movements 1 - Labs CBC & Chem 7: 11/12/23 10:56 11/12/23 08:51 Labs: Abnormal Lab Results - Last 24 Hours (Table) 11/11/23 11/11/23 11/11/23 Range/Units 07:05 16:30 20:16 PT 32.4 H (10.0-12.5) sec INR 3.3 H (<1.2) POC Glucose (mg/dL) 151 H 169 H (70-110) mg/dL 11/12/23 Range/Units 06:00 PT (10.0-12.5) sec INR (<1.2) POC Glucose (mg/dL) 151 H (70-110) mg/dL
[2023-11-12 16:40] LABS: Glucose,Whole Blood 183 mg/dL (70-110)
[2023-11-12] MEDS: MORPHINE SULFATE 4 MG/ML SYRINGE IV PRN (16:45)
[2023-11-12] MEDS: WARFARIN 2.5 MG TAB PO ONE (17:34)
--- NOTE | 2023-11-12 18:40 | PCN ---
PROCEDURE NOTE PROCEDURE: Right-sided thoracentesis. PREOPERATIVE DIAGNOSIS: Right pleural effusion. POSTOPERATIVE DIAGNOSIS: Right pleural effusion. There was informed consent and universal time-out. The procedure was done in room number 352. The posterior right chest was marked by ultrasound. [employer]: Dr. Ana Dubon. A time-out was completed verifying correct patient, procedure, site, positioning , and implant (s) or special equipment if applicable. Ultrasound guidance was/was not used and appropriate fluid pocket was identified and marked. Patient was positioned, prepped and draped in usual sterile fashion. Lidocaine was used to anesthetize the area. A Thoracentesis catheter was introduced into the pleural space and fluid was removed. Blood loss was none. A chest x-ray was ordered to evaluate for pneumothorax. Total Fluid Removed: 600 mL of dark yellow fluid was removed from the right pleural space. The patient tolerated and did well without complication. The fluid will be sent for analysis including chemistry, cytology, and microbiology. There were no complications. The patient tolerated the procedure well. The catheter was removed, after the procedure was completed, a CXR was performed. MMODL / IJN: [id number] / [facility]
[2023-11-12 20:19] LABS: Glucose,Whole Blood 164 mg/dL (70-110)
[2023-11-12 23:09] LABS: Glucose, BF Source Pleural Fluid; Glucose, Body Fluid 174 mg/dL; LDH, Body Fluid Source Pleural Fluid; T. Protein, Body Fluid Source Pleural Fluid; Total Protein, Body Fluid 1660 mg/dL
[2023-11-12 23:30] LABS: Appearance,BF Clear (Clear)
--- NOTE | 2023-11-13 00:40 | PN ---
PROGRESS NOTE SUBJECTIVE: An 88-year-old white male with COPD, pulmonary hypertension, end-stage renal disease, generalized weakness, hypotension after dialysis, systolic CHF. OBJECTIVE: VITAL SIGNS: Blood pressure has been running 92-104 over 50s, O2 98% on 5 L, pulse 73, respiratory rate 18 to 22. CARDIOVASCULAR: S1, S2. LUNGS: Scattered rhonchi and wheeze. Decreased breath sounds x4. HEMATOLOGY: 2+ edema. NEUROLOGIC: Cranial nerves intact. PSYCH: Poor mood and affect. ASSESSMENT: He is supposed to have a thoracentesis once his INR comes down. End-stage renal disease, coronary artery disease, diabetes mellitus, dyslipidemia, hypertension, atrial fibrillation, ischemic cardiomyopathy, hypoxemic respiratory failure, history of beta cell lymphoma, hypothyroidism, chronic obstructive pulmonary disease, a small dose of vitamin K. Do thoracentesis hopefully in the next day or two. Prognosis guarded. Continue current treatment. MMODL / IJN: [id number] /
[2023-11-13 06:14] LABS: Glucose,Whole Blood 139 mg/dL (70-110)
[2023-11-13 07:36] LABS: Basophils % (A) 0 %; Eosinophils % (A) 0 %; HCT 38.6 % (39.0-53.0); HGB 12.3 gm/dL (13.0-17.5); Hypochromasia Slight; Lymphocytes # (A) 0.3 k/uL (1.0-4.8); Lymphocytes % (A) 4 %; MCH 30.3 pg (25.0-35.0); MCV 94.8 fL (80.0-100.0); Mean Platelet Volume 8.7; Monocytes # (A) 0.3 k/uL (0-1.0); Monocytes % (A) 4 %; Neutrophils # (A) 6.1 k/uL (1.3-7.7); Neutrophils % (A) 92 %; Platelet Count 104 k/uL (150-450); RBC 4.07 m/uL (4.30-5.90); RDW 15.5 % (11.5-15.5); WBC 6.6 k/uL (3.8-10.6)
[2023-11-13 07:45] LABS: INR 1.5 (<1.2); Prothrombin Time 15.8 sec (10.0-12.5)
[2023-11-13 08:23] LABS: ALT 17 U/L (4-49); AST 16 U/L (17-59); African American GFR (CKD) 18 (>60 ml/min/1.73 sqM); Albumin 3.1 g/dL (3.5-5.0); Alkaline Phosphatase 72 U/L (38-126); Anion Gap 11 mmol/L; Blood Urea Nitrogen 43 mg/dL (9-20); Calcium 8.3 mg/dL (8.4-10.2); Carbon Dioxide 26 mmol/L (22-30); Chloride 99 mmol/L (98-107); Glucose 146 mg/dL (74-99); Non-African American GFR(CKD) 15 (>60 ml/min/1.73 sqM); Potassium 4.3 mmol/L (3.5-5.1); Sodium 136 mmol/L (137-145); Total Bilirubin 0.9 mg/dL (0.2-1.3); Total Protein 5.3 g/dL (6.3-8.2)
--- NOTE | 2023-11-13 11:23 | P.PN ---
Subjective Patient is seen for follow-up for end-stage renal disease. Maintained on hemodialysis on a Monday schedule. Status post right thoracentesis on 11/12/2023 for 600 mL of fluid.. Shortness of breath has improved significantly. Objective - Vital Signs Vital signs: Vital Signs Temp 97.8 F 11/13/23 08:00 Pulse 80 11/13/23 11:11 Resp 24 11/13/23 08:00 BP 77/39 11/13/23 08:00 Pulse Ox 99 11/13/23 08:00 FiO2 50 11/10/23 04:00 Intake & Output 11/12/23 11/13/23 11/13/23 18:59 06:59 18:59 Intake Total 118 118 Output Total 650 Balance -532 118 Intake: Oral 118 118 Output: Drainage 650 Right Chest 650 Other: Voiding Method Diaper Diaper # Voids 1 # Bowel Movements 1 - Exam Patient is awake, comfortable, no acute distress Examination of the heart S1 and S2 Examination of the lungs decreased breath sounds at the bases Abdomen is soft nontender Examination of lower extremities shows edema 2+ bilaterally with chronic skin changes. SHOT PACKER exam grossly intact - Labs CBC & Chem 7: 11/13/23 06:42 11/13/23 06:42 Labs: Abnormal Lab Results - Last 24 Hours (Table) 11/12/23 11/12/23 11/12/23 Range/Units 10:56 12:07 16:38 RBC 4.06 L (4.30-5.90) m/uL Hgb 12.0 L (13.0-17.5) gm/dL Hct 38.4 L (39.0-53.0) % Plt Count 128 L (150-450) k/uL Lymphocytes # 0.3 L (1.0-4.8) k/uL PT (10.0-12.5) sec INR (<1.2) Sodium (137-145) mmol/L BUN (9-20) mg/dL Creatinine (0.66-1.25) mg/dL Glucose (74-99) mg/dL POC Glucose (mg/dL) 164 H 183 H (70-110) mg/dL Calcium (8.4-10.2) mg/dL AST (17-59) U/L Total Protein (6.3-8.2) g/dL Albumin (3.5-5.0) g/dL 11/12/23 11/13/23 11/13/23 Range/Units 20:17 06:12 06:42 RBC (4.30-5.90) m/uL Hgb (13.0-17.5) gm/dL Hct (39.0-53.0) % Plt Count (150-450) k/uL Lymphocytes # (1.0-4.8) k/uL PT 15.8 H (10.0-12.5) sec INR 1.5 H (<1.2) Sodium (137-145) mmol/L BUN (9-20) mg/dL Creatinine (0.66-1.25) mg/dL Glucose (74-99) mg/dL POC Glucose (mg/dL) 164 H 139 H (70-110) mg/dL Calcium (8.4-10.2) mg/dL AST (17-59) U/L Total Protein (6.3-8.2) g/dL Albumin (3.5-5.0) g/dL 11/13/23 11/13/23 Range/Units 06:42 06:42 RBC 4.07 L (4.30-5.90) m/uL Hgb 12.3 L (13.0-17.5) gm/dL Hct 38.6 L (39.0-53.0) % Plt Count 104 L (150-450) k/uL Lymphocytes # 0.3 L (1.0-4.8) k/uL PT (10.0-12.5) sec INR (<1.2) Sodium 136 L (137-145) mmol/L BUN 43 H (9-20) mg/dL Creatinine 3.42 H (0.66-1.25) mg/dL Glucose 146 H (74-99) mg/dL POC Glucose (mg/dL) (70-110) mg/dL Calcium 8.3 L (8.4-10.2) mg/dL AST 16 L (17-59) U/L Total Protein 5.3 L (6.3-8.2) g/dL Albumin 3.1 L (3.5-5.0) g/dL Assessment and Plan Assessment: 1. End-stage renal disease maintained on hemodialysis on Monday schedule via right femoral catheter. 2. Noncompliance with hemodialysis. 3. Fluid overload. 4. Acute on chronic systolic CHF status post AICD placement. Ejection fraction 10 to 15% with moderate MR, AI, TR and PI. 5. Acute hypoxic respiratory failure likely related to pleural effusions. 6. Coronary artery disease status post CABG. 7. Chronic kidney disease mineral bone disease. Phosphorus level 4.4 dated November 09, 2023. 8. Hyperkalemia secondary to chronic kidney disease and Entresto. Improved with dialysis 9. Right pleural effusion status postthoracentesis of about 600 mL on 11/12/2023 Plan: Hemodialysis in a.m. Continue with oral Lasix
[2023-11-13 11:43] LABS: Glucose,Whole Blood 171 mg/dL (70-110)
--- NOTE | 2023-11-13 12:14 | P.PN ---
Subjective HISTORY OF PRESENT ILLNESS: History of present illness: Patient is a pleasant 88-year-old male with significant past medical history of CAD with prior CABG, ischemic cardiomyopathy with previous AICD implantation, systolic heart failure, hypertension, hyperlipidemia, paroxysmal atrial fibrillation, end-stage renal disease on dialysis who presented to the emergency department with worsening shortness of breath. He does follow in the office wi Dr. Carrera. He apparently had missed dialysis on Monday of this week because he had not been feeling well. He then proceeded to have worsening shortness of breath and feeling weak. He denies any chest pain or pressure. Denies any dizziness or syncope. He is currently on BiPAP. Echocardiogram today shows EF 10-15%, RVSP 42, severe LV dilation, moderate mitral regurgitation, moderate aortic insufficiency. Prior echo from 12/29 with ejection fraction 25%. He did have a prior Lexiscan stress test 08/29 that was reported negative. Labs reviewed: Sodium 136, potassium 4.3, creatinine 3.69, troponin normal x 1, BNP elevated [id number], INR 2.2. He underwent emergent dialysis this morning. He was planned for another 2 hours of hemodialysis today per nephrology however he has refused this. 11/10 Patient states that he is feeling little better from yesterday. He is to undergo hemodialysis today for blood pressure is low. He did receive Entresto this morning. This is not his normally scheduled dialysis today. Coumadin is currently on hold for thoracentesis which is expected to take place on Monday or Monday. Patient states that he has not been urinating very much. He is on I V Lasix 80 mg every 12 hours. Blood pressure 90/54, heart rate 70, pulse ox 100% on 7 L high flow nasal cannula. Repeat blood work reveals WBC 5.4, hemoglobin 0.9, platelet count 142. Sodium 138, potassium 5.8, BUN 58 and creatinine 5.22. 11/11 Coumadin remains on hold for thoracentesis to be performed soon. INR 3.3. Patient is maintained on IV Lasix 80 mg IV every 12 hours. Yesterday, we decre ased Entresto to half dose due to hypotension. Blood pressure today is at 92/57, heart rates in the 70s and 80s, pulse ox 97% on 6 L nasal cannula. Patient underwent hemodialysis yesterday and is scheduled again today. 11/12 Patient has been maintained on IV Lasix 80 mg every 12 hours. He underwent hemodialysis yesterday. Blood pressures have been low and patient maintained on midodrine 10 mg 3 times daily and Entresto was decreased to half tablet twice daily. Blood pressure this morning 92/51, heart rate in the 70s and 80s, pulse ox 98% on 5 L nasal cannula. Telemetry is paced rhythm. Patient underwent thoracentesis today with Dr. Hughes. Plan to resume Coumadin. November 13, 2023 Patient examined this morning at the bedside. Patient reports improvement in his shortness of breath. He denies chest pain or pressure. He remains on IV Lasix 80 mg every 12 hours. Patient's blood pressure remains low this morning with a systolic in the 70s. Telemetry reveals paced rhythm. Patient remains on anticoagulation with Coumadin. PHYSICAL EXAM: VITAL SIGNS: Reviewed. GENERAL: Well-developed in no acute distress. NECK: Supple. No JVD or thyromegaly LUNGS: Respirations even and unlabored. Lungs essentially clear to auscultation bilaterally. HEART: Regular rate and rhythm. S1 and S2 heard. EXTREMITIES: Normal range of motion. No clubbing or cyanosis. Peripheral pulses intact. 1-2+ lower extremity edema ASSESSMENT: Acute on chronic heart failure with reduced EF 10-15%, proBNP 195,000 Ischemic cardiomyopathy with previous AICD implantation CAD with previous CABG End-stage renal disease on hemodialysis Hypertension Hyperlipidemia Paroxysmal atrial fibrillation Valvular heart disease with moderate MR, moderate AI, moderate TR, moderate PI Bilateral pleural effusions status post right-sided thoracentesis 11/12 with removal of 600 cc Thrombocytopenia History of mantle cell lymphoma with previous chemotherapy COPD Hypothyroidism PLAN: Discontinue IV Lasix Begin oral Lasix 80 mg twice a day Continue additional cardiac medications Continue to monitor blood pressure. Entresto has been decreased over the weekend secondary to hypotension Hemodialysis per nephrology. Patient currently on a Monday schedule Further recommendations pending patient course Nurse practitioner note has been reviewed by physician. Signing provider agrees with the documented findings, assessment, and plan of care documented by ASSURANCE SOURCING MANAGER as a scribe. Objective - Vital Signs Vital signs: Vital Signs Temp 97.8 F 11/13/23 08:00 Pulse 80 11/13/23 11:24 Resp 24 11/13/23 08:00 BP 77/39 02/05/24 08:00 Pulse Ox 99 11/13/23 08:00 FiO2 50 11/10/23 04:00 Intake & Output 11/12/23 11/13/23 11/13/23 18:59 06:59 18:59 Intake Total 118 118 Output Total 650 Balance -532 118 Intake: Oral 118 118 Output: Drainage 650 Right Chest 650 Other: Voiding Method Diaper Diaper # Voids 1 # Bowel Movements 1 - Labs CBC & Chem 7: 11/13/23 06:42 11/13/23 06:42 Labs: Abnormal Lab Results - Last 24 Hours (Table) 11/12/23 11/12/23 11/12/23 Range/Units 12:07 16:38 20:17 RBC (4.30-5.90) m/uL Hgb (13.0-17.5) gm/dL Hct (39.0-53.0) % Plt Count (150-450) k/uL Lymphocytes # (1.0-4.8) k/uL PT (10.0-12.5) sec INR (<1.2) Sodium (137-145) mmol/L BUN (9-20) mg/dL Creatinine (0.66-1.25) mg/dL Glucose (74-99) mg/dL POC Glucose (mg/dL) 164 H 183 H 164 H (70-110) mg/dL Calcium (8.4-10.2) mg/dL AST (17-59) U/L Total Protein (6.3-8.2) g/dL Albumin (3.5-5.0) g/dL 11/13/23 11/13/23 11/13/23 Range/Units 06:12 06:42 06:42 RBC 4.07 L (4.30-5.90) m/uL Hgb 12.3 L (13.0-17.5) gm/dL Hct 38.6 L (39.0-53.0) % Plt Count 104 L (150-450) k/uL Lymphocytes # 0.3 L (1.0-4.8) k/uL PT 15.8 H (10.0-12.5) sec INR 1.5 H (<1.2) Sodium (137-145) mmol/L BUN (9-20) mg/dL Creatinine (0.66-1.25) mg/dL Glucose (74-99) mg/dL POC Glucose (mg/dL) 139 H (70-110) mg/dL Calcium (8.4-10.2) mg/dL AST (17-59) U/L Total Protein (6.3-8.2) g/dL Albumin (3.5-5.0) g/dL 11/13/23 11/13/23 Range/Units 06:42 11:42 RBC (4.30-5.90) m/uL Hgb (13.0-17.5) gm/dL Hct (39.0-53.0) % Plt Count (150-450) k/uL Lymphocytes # (1.0-4.8) k/uL PT (10.0-12.5) sec INR (<1.2) Sodium 136 L (137-145) mmol/L BUN 43 H (9-20) mg/dL Creatinine 3.42 H (0.66-1.25) mg/dL Glucose 146 H (74-99) mg/dL POC Glucose (mg/dL) 171 H (70-110) mg/dL Calcium 8.3 L (8.4-10.2) mg/dL AST 16 L (17-59) U/L Total Protein 5.3 L (6.3-8.2) g/dL Albumin 3.1 L (3.5-5.0) g/dL
--- NOTE | 2023-11-13 13:36 | P.PN ---
Subjective Progress Note Date: 11/13/23 On today's evaluation of 11/13/2023, I am seeing the patient for a follow-up. The patient is currently on 4 l of oxygen by nasal cannula. The patient seems to be calm and comfortable. The patient has multiple medical problems and comorbidities. The patient has CHF and the patient also has end-stage renal disease and the patient is on hemodialysis 3 times a week, TTS, in addition to COPD, coronary artery disease with previous bypass surgery and ischemic cardiomyopathy and the patient has a pacer/AICD in place. He also has diabetes mellitus, hypertension, chronic A-fib maintained on anticoagulation with warfarin and history of mantle cell lymphoma with previous chemotherapy. The patient was hospitalized for worsening shortness of breath. His viral panel was negative. Note that yesterday, the patient underwent a thoracentesis. A total of 600 cc of fluid was aspirated from the right lung. The patient has a fluid that is low in LDH and protein and this is essentially translates. The patient remains on Zosyn as a broad-spectrum antibiotic coverage. The patient is currently on 4 L of O2 nasal cannula. The patient is also on Lasix 80 mg p.o. twice a day. He is on bronchodilators with DuoNeb updrafts. He is also on IV Solu-Medrol. He remains on warfarin 2.5 mg p.o. daily. In terms of his labs, the WBC count is at 6.6 with a hemoglobin 12.3 and a platelet count of 104. BUN is at 43 with a creatinine of 3.4 and sodium is at 136 with a potassium level of 4.3. Awake and alert and sitting up in a chair. Denies having any other specific complaints. He feels better since the thoracentesis. Objective - Vital Signs Vital signs: Vital Signs Temp 97.8 F 11/13/23 08:00 Pulse 72 11/13/23 08:10 Resp 24 11/13/23 08:00 BP 77/39 11/13/23 08:00 Pulse Ox 99 11/13/23 08:00 FiO2 50 11/10/23 04:00 Intake & Output 11/12/23 11/13/23 11/13/23 18:59 06:59 18:59 Intake Total 118 Output Total 650 Balance -532 Intake: Oral 118 Output: Drainage 650 Right Chest 650 Other: Voiding Method Diaper Diaper # Voids 1 # Bowel Movements 1 - Exam No acute distress, oriented 3. Currently on 4 L nasal cannula. HEENT examination is grossly unremarkable. Mucous membranes are moist. No oral lesions. Neck supple. Full range of motion. No adenopathy thyromegaly or neck vein distention. Cardiovascular examination reveals regular rhythm rate. S1-S2 normal. No S3 or S4. No discernible murmur noted. Lungs reveal bibasilar crackles. Breath sounds are diminished on the right. No wheezes. Abdomen soft bowel sounds are heard. No masses or tenderness. Extremities are intact. No cyanosis clubbing or edema. Skin is without rash or lesion. Neurologic examination is brief but nonfocal. - Labs CBC & Chem 7: 11/13/23 06:42 11/13/23 06:42 Labs: Abnormal Lab Results - Last 24 Hours (Table) 11/12/23 11/12/23 11/12/23 Range/Units 08:51 08:51 10:56 RBC 4.06 L (4.30-5.90) m/uL Hgb 12.0 L (13.0-17.5) gm/dL Hct 38.4 L (39.0-53.0) % Plt Count 128 L (150-450) k/uL Lymphocytes # 0.3 L (1.0-4.8) k/uL PT 19.0 H (10.0-12.5) sec INR 1.9 H (<1.2) Sodium 134 L (137-145) mmol/L BUN 29 H (9-20) mg/dL Creatinine 2.54 H (0.66-1.25) mg/dL Glucose 165 H (74-99) mg/dL POC Glucose (mg/dL) (70-110) mg/dL Calcium 8.3 L (8.4-10.2) mg/dL AST (17-59) U/L Total Protein 5.5 L (6.3-8.2) g/dL Albumin 3.1 L (3.5-5.0) g/dL 11/12/23 11/12/23 11/12/23 Range/Units 12:07 16:38 20:17 RBC (4.30-5.90) m/uL Hgb (13.0-17.5) gm/dL Hct (39.0-53.0) % Plt Count (150-450) k/uL Lymphocytes # (1.0-4.8) k/uL PT (10.0-12.5) sec INR (<1.2) Sodium (137-145) mmol/L BUN (9-20) mg/dL Creatinine (0.66-1.25) mg/dL Glucose (74-99) mg/dL POC Glucose (mg/dL) 164 H 183 H 164 H (70-110) mg/dL Calcium (8.4-10.2) mg/dL AST (17-59) U/L Total Protein (6.3-8.2) g/dL Albumin (3.5-5.0) g/dL 11/13/23 11/13/23 11/13/23 Range/Units 06:12 06:42 06:42 RBC 4.07 L (4.30-5.90) m/uL Hgb 12.3 L (13.0-17.5) gm/dL Hct 38.6 L (39.0-53.0) % Plt Count 104 L (150-450) k/uL Lymphocytes # 0.3 L (1.0-4.8) k/uL PT 15.8 H (10.0-12.5) sec INR 1.5 H (<1.2) Sodium (137-145) mmol/L BUN (9-20) mg/dL Creatinine (0.66-1.25) mg/dL Glucose (74-99) mg/dL POC Glucose (mg/dL) 139 H (70-110) mg/dL Calcium (8.4-10.2) mg/dL AST (17-59) U/L Total Protein (6.3-8.2) g/dL Albumin (3.5-5.0) g/dL 11/13/23 Range/Units 06:42 RBC (4.30-5.90) m/uL Hgb (13.0-17.5) gm/dL Hct (39.0-53.0) % Plt Count (150-450) k/uL Lymphocytes # (1.0-4.8) k/uL PT (10.0-12.5) sec INR (<1.2) Sodium 136 L (137-145) mmol/L BUN 43 H (9-20) mg/dL Creatinine 3.42 H (0.66-1.25) mg/dL Glucose 146 H (74-99) mg/dL POC Glucose (mg/dL) (70-110) mg/dL Calcium 8.3 L (8.4-10.2) mg/dL AST 16 L (17-59) U/L Total Protein 5.3 L (6.3-8.2) g/dL Albumin 3.1 L (3.5-5.0) g/dL Assessment and Plan Plan: Acute hypoxemic respiratory failure, secondary to fluid overload related to missing hemodialysis earlier in the week and an exacerbation of chronic systolic congestive heart failure. The patient presented with worsening fluid overload and the patient is improving with dialysis and furthermore thoracentesis of the right lung was done to remove a total of 6 ounces of pleural fluid from the right. Right-sided pleural effusion S/P right thoracentesis, November 12, 2023. The fluid is a transudate. History of ischemic cardiomyopathy, with a baseline ejection fraction less than 20%, status post AICD/pacemaker. End-stage renal disease, maintained on hemodialysis 3 times a week (T, TH, MON). Coronary artery disease, with previous CABG. Diabetes mellitus. History of hyperlipidemia. History of hypertension. History of atrial fibrillation, anticoagulated on warfarin. The current rhythm is paced. History of hypothyroidism. History of mantle cell lymphoma with previous chemotherapy. History of chronic obstructive pulmonary disease, stable. Plan: Plan Continue oral Lasix 80 mg p.o. twice a day Dialysis per nephrology Continue anticoagulation with warfarin, INR is at 1.5 Continue aspirin Continue Entresto Continue updrafts Will wean the patient off the IV Solu-Medrol start prednisone burst taper as of tomorrow Comfortable on 40s of oxygen by nasal cannula Full CODE STATUS and will continue to follow.
[2023-11-13] MEDS: FUROSEMIDE 80 MG TAB PO SCH (15:28)
[2023-11-13] MEDS: WARFARIN 2.5 MG TAB PO ONE (15:28)
[2023-11-13 16:39] LABS: Glucose,Whole Blood 157 mg/dL (70-110)
[2023-11-13] MEDS: TAMSULOSIN 0.4 MG CAP.ER.24H PO SCH (19:38)
[2023-11-13 19:49] LABS: Glucose,Whole Blood 167 mg/dL (70-110)
[2023-11-13] MEDS: MIDODRINE 5 MG TAB PO STA (20:50)
--- NOTE | 2023-11-13 23:06 | PN ---
PROGRESS NOTE SUBJECTIVE: The patient underwent pleural tap today, status post right thoracentesis to take 600 mL out. Shortness of breath has improved significantly. Blood pressure is low 177/39, temperature 97.8, respiratory rate 24, pulse 84. BUN is 43, creatinine 3.42. Sugars in mid 100s. End-stage renal disease, noncompliant with hemodialysis, fluid overload, systolic CHF, AICD, hypoxic respiratory failure, coronary artery disease, chronic kidney disease, mineral bone disease, hyperkalemia, right pleural effusion. Monitor for his blood pressure. He is hypotensive, status post tap, possibly have to increase midodrine. Sat 98 on 4 L. Prognosis guarded. May be hold off on sedation a little bit. Please see further orders. PROGNOSIS: Extremely guarded. MMODL / IJN: [id number] /
[2023-11-13] MEDS: MIDODRINE 5 MG TAB PO ONE (23:59)
--- NOTE | 2023-11-14 05:40 | XR ---
EXAMINATION TYPE: XR chest 1V portable DATE OF EXAM: 11/14/2023 CLINICAL HISTORY: Shortness of breath and hypoxia. TECHNIQUE: Single AP portable semiupright view of the chest is obtained. COMPARISON: Chest x-ray from 2 days earlier FINDINGS: There is cardiomegaly with multi lead pacemaker/defibrillator redemonstrated. Overlying st ernal wires and mediastinal clips are redemonstrated. There is increasing bibasilar lateral opacities and small bilateral pleural effusions on current study. Osseous structures remain demineralized. IMPRESSION: Findings consistent with CHF exacerbation/fluid overload state are redemonstrated and sli ghtly more prominent from most recent study. Correlate clinically.
[2023-11-14 06:04] LABS: Glucose,Whole Blood 165 mg/dL (70-110)
[2023-11-14] MEDS: FUROSEMIDE 10 MG/ML 10 ML VIAL IV STA (06:20)
[2023-11-14 10:02] LABS: INR 1.7 (<1.2); Prothrombin Time 17.1 sec (10.0-12.5)
[2023-11-14] MEDS: MIDODRINE 5 MG TAB PO STA (10:49)
--- NOTE | 2023-11-14 10:53 | P.PN ---
Subjective Progress Note Date: 11/14/23 On today's evaluation of 11/13/2023, I am seeing the patient for a follow-up. The patient is currently on 4 l of oxygen by nasal cannula. The patient seems to be calm and comfortable. The patient has multiple medical problems and comorbidities. The patient has CHF and the patient also has end-stage renal disease and the patient is on hemodialysis 3 times a week, TTS, in addition to COPD, coronary artery disease with previous bypass surgery and ischemic cardiomyopathy and the patient has a pacer/AICD in place. He also has diabetes mellitus, hypertension, chronic A-fib maintained on anticoagulation with warfarin and history of mantle cell lymphoma with previous chemotherapy. The patient was hospitalized for worsening shortness of breath. His viral panel was negative. Note that yesterday, the patient underwent a thoracentesis. A total of 600 cc of fluid was aspirated from the right lung. The patient has a fluid that is low in LDH and protein and this is essentially translates. The patient remains on Zosyn as a broad-spectrum antibiotic coverage. The patient is currently on 4 L of O2 nasal cannula. The patient is also on Lasix 80 mg p.o. twice a day. He is on bronchodilators with DuoNeb updrafts. He is also on IV Solu-Medrol. He remains on warfarin 2.5 mg p.o. daily. In terms of his labs, the WBC count is at 6.6 with a hemoglobin 12.3 and a platelet count of 104. BUN is at 43 with a creatinine of 3.4 and sodium is at 136 with a potassium level of 4.3. Awake and alert and sitting up in a chair. Denies having any other specific complaints. He feels better since the thoracentesis. On today's evaluation of chest x-ray the patient is being seen for a follow-up. The patient had some increased shortness of breath earlier this morning and the patient was brought up to 6 L of oxygen by nasal cannula. The patient seems to be calm and comfortable on this oxygen flow. Chest x-ray showing bilateral pulm infiltrates consistent with CHF. Pneumonia is possible and not completely excluded. The patient is afebrile. The patient is running a softer blood pressure. The aim is to do another session of hemodialysis with a goal of ultrafiltration of 1-2 L. His mean arterial pressure is currently at 64. His pulse ox is 97% on 6 L of oxygen by nasal cannula. He remains on oral Lasix 80 mg twice a day. Urine output is quite diminished and minimal. The patient is also on IV Zosyn. He is known to have cardiomyopathy with impaired LV function. He is on Entresto 1 tablet a day. He is weak, quite lethargic, arousable. He is back on Coumadin his INR is at 1.7. Objective - Vital Signs Vital signs: Vital Signs Temp 97.9 F 11/14/23 04:00 Pulse 80 11/14/23 07:59 Resp 18 11/14/23 06:32 BP 91/54 11/14/23 06:32 Pulse Ox 97 11/14/23 06:32 FiO2 50 11/10/23 04:00 Intake & Output 11/13/23 11/14/23 11/14/23 18:59 06:59 18:59 Intake Total 236 Output Total 0 Balance 236 0 Intake: Oral 236 Output: Post Void Residual 0 Other: Voiding Method Diaper # Voids 0 # Bowel Movements 0 - Exam Lethargic, weak, looks quite debilitated.. Currently on 6 L/min nasal cannula HEENT examination is grossly unremarkable. Mucous membranes are moist. No oral lesions. Neck supple. Full range of motion. No adenopathy thyromegaly or neck vein distention. Cardiovascular examination reveals regular rhythm rate. S1-S2 normal. No S3 or S4. No discernible murmur noted. Lungs reveal bibasilar crackles. Breath sounds are diminished on the right. No wheezes. Abdomen soft bowel sounds are heard. No masses or tenderness. Extremities are intact. No cyanosis clubbing or edema. Skin is without rash or lesion. Neurologic examination is brief but nonfocal. - Labs CBC & Chem 7: 11/13/23 06:42 11/13/23 06:42 Labs: Abnormal Lab Results - Last 24 Hours (Table) 11/13/23 11/13/23 11/13/23 Range/Units 11:42 16:37 19:33 POC Glucose (mg/dL) 171 H 157 H 167 H (70-110) mg/dL 11/14/23 Range/Units 05:48 POC Glucose (mg/dL) 165 H (70-110) mg/dL Microbiology - Last 24 Hours (Table) 11/12/23 10:30 Acid Fast Bacilli Smear - Preliminary Pleural Fluid 11/12/23 10:30 Gram Stain - Preliminary Pleural Fluid Body Fluid Culture - Preliminary Assessment and Plan Plan: Acute hypoxemic respiratory failure, secondary to fluid overload related to missing hemodialysis earlier in the week and an exacerbation of chronic systolic congestive heart failure. The patient presented with worsening fluid overload and the patient is improving with dialysis and furthermore thoracentesis of the right lung was done to remove a total of 600 cc of transudative fluid from the right lung. Chest x-ray showing bilateral pulm infiltrates could be related to CHF and pulm vascular congestion. Pneumonia is felt to be less likely at this point in time. The patient is covered with IV Zosyn. The patient is currently on 60 days of oxygen by nasal cannula. Right-sided pleural effusion S/P right thoracentesis, November 12, 2023. The fluid is a transudate. History of ischemic cardiomyopathy, with a baseline ejection fraction less than 20%, status post AICD/pacemaker. End-stage renal disease, maintained on hemodialysis 3 times a week (, , MON). Chronic hypotension secondary to above, not requiring any pressors Coronary artery disease, with previous CABG. Diabetes mellitus. History of hyperlipidemia. History of hypertension. History of atrial fibrillation, anticoagulated on warfarin. The current rhythm is paced. INR subtherapeutic at 1.7 History of hypothyroidism. History of mantle cell lymphoma with previous chemotherapy. History of chronic obstructive pulmonary disease, stable. Plan: Plan Titrate oxygen flow to maintain a saturation above 90%. Currently on 6 L Continue oral Lasix 80 mg p.o. twice a day Dialysis per nephrology, another session of dialysis with ultrafiltration to be done today with a goal of removal of 1 to 2 L depending on his blood pressure response. Continue anticoagulation with warfarin, INR is at 1.7 Continue aspirin Continue Entresto Continue updrafts Prednisone 20 mg p.o. daily as part of a burst taper Full CODE STATUS and will continue to follow.
--- NOTE | 2023-11-14 11:06 | P.PN ---
Subjective Patient is seen for follow-up for end-stage renal disease. Maintained on hemodialysis on a Monday schedule. Status post right thoracentesis on 11/12/2023 for 600 mL of fluid.. Patient was noted to be significantly short of breath early this morning. Chest x-ray showed pulmonary vascular congestion and CHF exacerbation. Patient was started on hemodialysis earlier today. Blood pressure has been in the 90s for systolic. Currently seen on hemodialysis. Shortness of breath seems to have improved. Goal UF about 1 to 1.5 L as tolerated. Patient remains on midodrine. Discussed with patient's over the phone regarding need to continue with renal replacement therapy for fluid management. Patient has not had significant urine output. CODE STATUS will need to be discussed further including options of hospice care if discontinuation of renal replacement therapy is desired. Objective - Vital Signs Vital signs: Vital Signs Temp 97.9 F 11/14/23 10:42 Pulse 72 11/14/23 10:42 Resp 18 11/14/23 10:42 BP 92/52 11/14/23 10:42 Pulse Ox 99 11/14/23 10:42 FiO2 50 11/10/23 04:00 Intake & Output 11/13/23 11/14/23 11/14/23 18:59 06:59 18:59 Intake Total 236 0 Output Total 0 Balance 236 0 0 Intake: Oral 236 0 Output: Post Void Residual 0 Other: Voiding Method Diaper Diaper # Voids 0 # Bowel Movements 0 - Exam Patient is awake, comfortable, no acute distress Examination of the heart S1 and S2 Examination of the lungs decreased breath sounds at the bases Abdomen is soft nontender Examination of lower extremities shows edema 2+ bilaterally with chronic skin changes. 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 End-stage renal disease maintained on hemodialysis on Monday schedule via right femoral catheter. 2. Noncompliance with hemodialysis. 3. Fluid overload and CHF exacerbation 4. Acute on chronic systolic CHF status post AICD placement. Ejection fraction 10 to 15% with moderate MR, AI, TR and PI. 5. Acute hypoxic respiratory failure likely related to pleural effusions. 6. Coronary artery disease status post CABG. 7. Chronic kidney disease mineral bone disease. Phosphorus level 4.4 dated November 09, 2023. 8. Hyperkalemia secondary to chronic kidney disease and Entresto. Improved with dialysis 9. Right pleural effusion status postthoracentesis of about 600 mL on 11/12/2023 Plan: Hemodialysis today and possibly again in a.m Continue with oral Lasix Had discussion with patient's regarding need to continue with renal replacement therapy and discussed options of hospice care if discontinuation of dialysis is desired. Patient remains dependent on hemodialysis for fluid management. He is currently oliguric.
--- NOTE | 2023-11-14 11:09 | P.PN ---
Subjective HISTORY OF PRESENT ILLNESS: History of present illness: Patient is a pleasant 88-year-old male with significant past medical history of CAD with prior CABG, ischemic cardiomyopathy with previous AICD implantation, systolic heart failure, hypertension, hyperlipidemia, paroxysmal atrial fibrillation, end-stage renal disease on dialysis who presented to the emergency department with worsening shortness of breath. He does follow in the office wi Dr. Carrera. He apparently had missed dialysis on Monday of this week because he had not been feeling well. He then proceeded to have worsening shortness of breath and feeling weak. He denies any chest pain or pressure. Denies any dizziness or syncope. He is currently on BiPAP. Echocardiogram today shows EF 10-15%, RVSP 42, severe LV dilation, moderate mitral regurgitation, moderate aortic insufficiency. Prior echo from 12/29 with ejection fraction 25%. He did have a prior Lexiscan stress test 08/29 that was reported negative. Labs reviewed: Sodium 136, potassium 4.3, creatinine 3.69, troponin normal x 1, BNP elevated [id number], INR 2.2. He underwent emergent dialysis this morning. He was planned for another 2 hours of hemodialysis today per nephrology however he has refused this. 11/10 Patient states that he is feeling little better from yesterday. He is to undergo hemodialysis today for blood pressure is low. He did receive Entresto this morning. This is not his normally scheduled dialysis today. Coumadin is currently on hold for thoracentesis which is expected to take place on Monday or Monday. Patient states that he has not been urinating very much. He is on I V Lasix 80 mg every 12 hours. Blood pressure 90/54, heart rate 70, pulse ox 100% on 7 L high flow nasal cannula. Repeat blood work reveals WBC 5.4, hemoglobin 0.9, platelet count 142. Sodium 138, potassium 5.8, BUN 58 and creatinine 5.22. 11/11 Coumadin remains on hold for thoracentesis to be performed soon. INR 3.3. Patient is maintained on IV Lasix 80 mg IV every 12 hours. Yesterday, we decre ased Entresto to half dose due to hypotension. Blood pressure today is at 92/57, heart rates in the 70s and 80s, pulse ox 97% on 6 L nasal cannula. Patient underwent hemodialysis yesterday and is scheduled again today. 11/12 Patient has been maintained on IV Lasix 80 mg every 12 hours. He underwent hemodialysis yesterday. Blood pressures have been low and patient maintained on midodrine 10 mg 3 times daily and Entresto was decreased to half tablet twice daily. Blood pressure this morning 92/51, heart rate in the 70s and 80s, pulse ox 98% on 5 L nasal cannula. Telemetry is paced rhythm. Patient underwent thoracentesis today with Dr. Hughes. Plan to resume Coumadin. November 13, 2023 Patient examined this morning at the bedside. Patient reports improvement in his shortness of breath. He denies chest pain or pressure. He remains on IV Lasix 80 mg every 12 hours. Patient's blood pressure remains low this morning with a systolic in the 70s. Telemetry reveals paced rhythm. Patient remains on anticoagulation with Coumadin. November 14, 2023 Patient examined this morning at the bedside. Patient currently denies chest pain or pressure. He reports mild shortness of breath. He is currently undergoing hemodialysis at the time of evaluation with a goal of 1 L of fluid removal. Blood pressure remained stable with a systolic in the 90s. PHYSICAL EXAM: VITAL SIGNS: Reviewed. GENERAL: Well-developed in no acute distress. NECK: Supple. No JVD or thyromegaly LUNGS: Respirations even and unlabored. Lungs essentially clear to auscultation bilaterally. HEART: Regular rate and rhythm. S1 and S2 heard. EXTREMITIES: Normal range of motion. No clubbing or cyanosis. Peripheral pulses intact. 1-2+ lower extremity edema ASSESSMENT: Acute on chronic heart failure with reduced EF 10-15%, proBNP 195,000 Ischemic cardiomyopathy with previous AICD implantation CAD with previous CABG End-stage renal disease on hemodialysis Hypertension Hyperlipidemia Paroxysmal atrial fibrillation Valvular heart disease with moderate MR, moderate AI, moderate TR, moderate PI Bilateral pleural effusions status post right-sided thoracentesis 11/12 with removal of 600 cc Thrombocytopenia History of mantle cell lymphoma with previous chemotherapy COPD Hypothyroidism PLAN: Continue oral diuretics Continue additional cardiac medications Continue to monitor blood pressure. Entresto has been decreased over the weekend secondary to hypotension Hemodialysis per nephrology. Patient currently on a Monday schedule Further recommendations pending patient course Nurse practitioner note has been reviewed by physician. Signing provider agrees with the documented findings, assessment, and plan of care documented by SENIOR EXAMINER as a scribe. Objective - Vital Signs Vital signs: Vital Signs Temp 97.9 F 11/14/23 10:42 Pulse 72 11/14/23 10:42 Resp 18 11/14/23 10:42 BP 92/52 11/14/23 10:42 Pulse Ox 99 11/14/23 10:42 FiO2 50 11/10/23 04:00 Intake & Output 11/13/23 11/14/23 11/14/23 18:59 06:59 18:59 Intake Total 236 0 Output Total 0 Balance 236 0 0 Intake: Oral 236 0 Output: Post Void Residual 0 Other: Voiding Method Diaper Diaper # Voids 0 # Bowel Movements 0 - Labs CBC & Chem 7: 11/13/23 06:42 11/13/23 06:42 Labs: Abnormal Lab Results - Last 24 Hours (Table) 11/13/23 11/13/23 11/13/23 Range/Units 11:42 16:37 19:33 PT (10.0-12.5) sec INR (<1.2) POC Glucose (mg/dL) 171 H 157 H 167 H (70-110) mg/dL 11/14/23 11/14/23 Range/Units 05:48 08:58 PT 17.1 H (10.0-12.5) sec INR 1.7 H (<1.2) POC Glucose (mg/dL) 165 H (70-110) mg/dL Microbiology - Last 24 Hours (Table) 11/12/23 10:30 Acid Fast Bacilli Smear - Preliminary Pleural Fluid 11/12/23 10:30 Gram Stain - Preliminary Pleural Fluid Body Fluid Culture - Preliminary
[2023-11-14 11:39] LABS: Glucose,Whole Blood 101 mg/dL (70-110)
[2023-11-14] MEDS: predniSONE 20 MG TAB PO SCH (12:35)
[2023-11-14] MEDS ORDERED: ACETAMINOPHEN TAB 325 MG TAB PO PRN (12:54)
[2023-11-14 13:05] VITALS: BMI 20.6
[2023-11-14 16:35] LABS: Glucose,Whole Blood 91 mg/dL (70-110)
[2023-11-14] MEDS: WARFARIN 2.5 MG TAB PO ONE (17:22)
[2023-11-14 20:35] LABS: Glucose,Whole Blood 78 mg/dL (70-110)
[2023-11-14] MEDS: SODIUM CHLORIDE 0.9% 1,000 ML IV SCH (23:17)
--- NOTE | 2023-11-14 23:30 | PN ---
PROGRESS NOTE SUBJECTIVE: This is an 88-year-old white male who has had postop hypotension, for the last few days severe hypotension. His medicines have been adjusted, he has poor ejection fraction. He has congestive heart failure, systolic and diastolic. He has end-stage renal disease, AICD, ischemic cardiomyopathy. He is status post thoracentesis, 600 mL of fluid taken out yesterday. He has been hypotensive since. Talked to nephrology about holding dialysis, but he still went dialysis despite hypotension, took a liter of fluid off. Blood pressure has been stable in the 90s. He looks weak, fatigued, dry skin turgor. OBJECTIVE: CARDIOVASCULAR: S1, S2. LUNGS: Fairly clear. EXTREMITIES: 2+ edema. Acute on chronic systolic heart failure, ejection fraction 15% to 10%. BNP is 195, AICD, ischemic cardiomyopathy, coronary artery disease, end-stage renal disease, hypertension, dyslipidemia, DM, paroxysmal atrial fibrillation, moderate mitral regurg, bilateral pleural effusions, thoracentesis, thrombocytopenia, pulmonary hypertension, COPD. Nephrology is going to continue dialyzing and will stabilize blood pressure and breathing and possibly send him home when we can. PROGNOSIS: Extremely guarded. MMODL / IJN: [id number] /
[2023-11-14 23:39] LABS: Glucose,Whole Blood 87 mg/dL (70-110)
[2023-11-15 01:24] VITALS: RESP 16
[2023-11-15 06:16] LABS: Glucose,Whole Blood 78 mg/dL (70-110)
[2023-11-15 10:20] LABS: INR 1.8 (<1.2); Prothrombin Time 18.1 sec (10.0-12.5)
--- NOTE | 2023-11-15 11:08 | P.PN ---
Subjective Patient is seen for follow-up for end-stage renal disease. Maintained on hemodialysis on a Monday schedule. Status post hemodialysis yesterday with UF of 1 L. Respiratory status improved yesterday post hemodialysis but patient remains lethargic. Systolic blood pressure in the 90s. Family is present at bedside and hospice has been consulted. Objective - Vital Signs Vital signs: Vital Signs Temp 97.5 F L 11/15/23 08:00 Pulse 76 11/15/23 10:58 Resp 16 11/15/23 08:45 BP 90/59 11/15/23 08:00 Pulse Ox 97 11/15/23 08:00 FiO2 50 11/10/23 04:00 Intake & Output 11/14/23 11/15/23 11/15/23 18:59 06:59 18:59 Intake Total 520 275 Output Total 1200 0 0 Balance -680 275 0 Weight 65.317 kg Intake: Intake, IV Titration 100 275 Amount Piperacillin-Tazobactam 3 100 100 .375 gm In Sodium Chloride 0.9% 100 ml @ 25 mls/hr IVPB Q12H [facility] Rx# :[id number] Sodium Chloride 0.9% 1, 175 000 ml @ 50 mls/hr IV . Q20H [facility] Rx#:[id number] Oral 20 0 Hemodialysis 400 Output: Urine 0 0 Hemodialysis 1200 Other: Voiding Method Diaper Diaper Diaper # Voids 0 0 - Exam Patient is awake, comfortable, no acute distress Examination of lower extremities shows edema trace bilaterally with chronic skin changes. NUMERICAL CONTROL TOOL PROGRAMMER exam grossly intact - Labs CBC & Chem 7: 11/13/23 06:42 11/13/23 06:42 Labs: Abnormal Lab Results - Last 24 Hours (Table) 11/14/23 11/15/23 Range/Units 13:21 08:57 PT 18.1 H (10.0-12.5) sec INR 1.8 H (<1.2) Procalcitonin 0.18 H (0.02-0.09) ng/mL Microbiology - Last 24 Hours (Table) 11/12/23 10:30 Gram Stain - Preliminary Pleural Fluid Body Fluid Culture - Preliminary Assessment and Plan Assessment: 1. End-stage renal disease maintained on hemodialysis on Monday schedule via right femoral catheter. 2. Noncompliance with hemodialysis. 3. Fluid overload and CHF exacerbation 4. Acute on chronic systolic CHF status post AICD placement. Ejection fraction 10 to 15% with moderate MR, AI, TR and PI. 5. Acute hypoxic respiratory failure likely related to pleural effusions. 6. Coronary artery disease status post CABG. 7. Chronic kidney disease mineral bone disease. Phosphorus level 4.4 dated November 09, 2023. 8. Hyperkalemia secondary to chronic kidney disease and Entresto. Improved with dialysis 9. Right pleural effusion status postthoracentesis of about 600 mL on 11/12/2023 Plan: Had discussion with patient's regarding need to continue with renal replacement therapy and discussed options of hospice care if discontinuation of dialysis is desired. Patient remains dependent on hemodialysis for fluid management. He is currently oliguric. Family with like to proceed with hospice care which is appropriate as patient has not been able to tolerate hemodialysis/UF.
--- NOTE | 2023-11-15 11:18 | P.PN ---
Subjective HISTORY OF PRESENT ILLNESS: History of present illness: Patient is a pleasant 88-year-old male with significant past medical history of CAD with prior CABG, ischemic cardiomyopathy with previous AICD implantation, systolic heart failure, hypertension, hyperlipidemia, paroxysmal atrial fibrillation, end-stage renal disease on dialysis who presented to the emergency department with worsening shortness of breath. He does follow in the office wi Dr. Carrera. He apparently had missed dialysis on Monday of this week because he had not been feeling well. He then proceeded to have worsening shortness of breath and feeling weak. He denies any chest pain or pressure. Denies any dizziness or syncope. He is currently on BiPAP. Echocardiogram today shows EF 10-15%, RVSP 42, severe LV dilation, moderate mitral regurgitation, moderate aortic insufficiency. Prior echo from 12/29 with ejection fraction 25%. He did have a prior Lexiscan stress test 08/29 that was reported negative. Labs reviewed: Sodium 136, potassium 4.3, creatinine 3.69, troponin normal x 1, BNP elevated [id number], INR 2.2. He underwent emergent dialysis this morning. He was planned for another 2 hours of hemodialysis today per nephrology however he has refused this. 11/10 Patient states that he is feeling little better from yesterday. He is to undergo hemodialysis today for blood pressure is low. He did receive Entresto this morning. This is not his normally scheduled dialysis today. Coumadin is currently on hold for thoracentesis which is expected to take place on Monday or Monday. Patient states that he has not been urinating very much. He is on I V Lasix 80 mg every 12 hours. Blood pressure 90/54, heart rate 70, pulse ox 100% on 7 L high flow nasal cannula. Repeat blood work reveals WBC 5.4, hemoglobin 0.9, platelet count 142. Sodium 138, potassium 5.8, BUN 58 and creatinine 5.22. 11/11 Coumadin remains on hold for thoracentesis to be performed soon. INR 3.3. Patient is maintained on IV Lasix 80 mg IV every 12 hours. Yesterday, we decre ased Entresto to half dose due to hypotension. Blood pressure today is at 92/57, heart rates in the 70s and 80s, pulse ox 97% on 6 L nasal cannula. Patient underwent hemodialysis yesterday and is scheduled again today. 11/12 Patient has been maintained on IV Lasix 80 mg every 12 hours. He underwent hemodialysis yesterday. Blood pressures have been low and patient maintained on midodrine 10 mg 3 times daily and Entresto was decreased to half tablet twice daily. Blood pressure this morning 92/51, heart rate in the 70s and 80s, pulse ox 98% on 5 L nasal cannula. Telemetry is paced rhythm. Patient underwent thoracentesis today with Dr. Hughes. Plan to resume Coumadin. November 13, 2023 Patient examined this morning at the bedside. Patient reports improvement in his shortness of breath. He denies chest pain or pressure. He remains on IV Lasix 80 mg every 12 hours. Patient's blood pressure remains low this morning with a systolic in the 70s. Telemetry reveals paced rhythm. Patient remains on anticoagulation with Coumadin. November 14, 2023 Patient examined this morning at the bedside. Patient currently denies chest pain or pressure. He reports mild shortness of breath. He is currently undergoing hemodialysis at the time of evaluation with a goal of 1 L of fluid removal. Blood pressure remained stable with a systolic in the 90s. November 15, 2023 Patient examined this morning at the bedside. Patient is status post hemodialysis yesterday with UF of 1 L. Blood pressure remains on the lower side with a systolic in the 90s. Discussion was had this morning with the family and nephrology. Patient apparently has been signed into hospice. PHYSICAL EXAM: VITAL SIGNS: Reviewed. GENERAL: Well-developed in no acute distress. NECK: Supple. No JVD or thyromegaly LUNGS: Respirations even and unlabored. Lungs essentially clear to auscultation bilaterally. HEART: Regular rate and rhythm. S1 and S2 heard. EXTREMITIES: Normal range of motion. No clubbing or cyanosis. Peripheral pulses intact. 1-2+ lower extremity edema ASSESSMENT: Acute on chronic heart failure with reduced EF 10-15%, proBNP 195,000 Ischemic cardiomyopathy with previous AICD implantation CAD with previous CABG End-stage renal disease on hemodialysis Hypertension Hyperlipidemia Paroxysmal atrial fibrillation Valvular heart disease with moderate MR, moderate AI, moderate TR, moderate PI Bilateral pleural effusions status post right-sided thoracentesis 11/12 with removal of 600 cc Thrombocytopenia History of mantle cell lymphoma with previous chemotherapy COPD Hypothyroidism PLAN: Continue current cardiac medications Discussion was had this morning with the family and nephrology. Patient apparently would like to be signed into hospice. We will sign off. Please reconsult if needed. Nurse practitioner note has been reviewed by physician. Signing provider agrees with the documented findings, assessment, and plan of care documented by POULTRY TENDER as a scribe. Objective - Vital Signs Vital signs: Vital Signs Temp 97.5 F L 11/15/23 08:00 Pulse 80 11/15/23 11:09 Resp 16 11/15/23 08:45 BP 90/59 11/15/23 08:00 Pulse Ox 97 11/15/23 08:00 FiO2 50 11/10/23 04:00 Intake & Output 11/14/23 11/15/23 11/15/23 18:59 06:59 18:59 Intake Total 520 275 Output Total 1200 0 0 Balance -680 275 0 Weight 65.317 kg Intake: Intake, IV Titration 100 275 Amount Piperacillin-Tazobactam 3 100 100 .375 gm In Sodium Chloride 0.9% 100 ml @ 25 mls/hr IVPB Q12H [facility] Rx# :[id number] Sodium Chloride 0.9% 1, 175 000 ml @ 50 mls/hr IV . Q20H [facility] Rx#:[id number] Oral 20 0 Hemodialysis 400 Output: Urine 0 0 Hemodialysis 1200 Other: Voiding Method Diaper Diaper Diaper # Voids 0 0 - Labs CBC & Chem 7: 11/13/23 06:42 11/13/23 06:42 Labs: Abnormal Lab Results - Last 24 Hours (Table) 11/14/23 11/15/23 Range/Units 13:21 08:57 PT 18.1 H (10.0-12.5) sec INR 1.8 H (<1.2) Procalcitonin 0.18 H (0.02-0.09) ng/mL Microbiology - Last 24 Hours (Table) 11/12/23 10:30 Gram Stain - Preliminary Pleural Fluid Body Fluid Culture - Preliminary
[2023-11-15 11:45] VITALS: BP 89/54; PULSE 75; TEMP 97.4
[2023-11-15 11:50] LABS: Glucose,Whole Blood 71 mg/dL (70-110)
--- NOTE | 2023-11-15 12:04 | P.PN ---
Subjective Progress Note Date: 11/15/23 On today's evaluation of 11/13/2023, I am seeing the patient for a follow-up. The patient is currently on 4 l of oxygen by nasal cannula. The patient seems to be calm and comfortable. The patient has multiple medical problems and comorbidities. The patient has CHF and the patient also has end-stage renal disease and the patient is on hemodialysis 3 times a week, TTS, in addition to COPD, coronary artery disease with previous bypass surgery and ischemic cardiomyopathy and the patient has a pacer/AICD in place. He also has diabetes mellitus, hypertension, chronic A-fib maintained on anticoagulation with warfarin and history of mantle cell lymphoma with previous chemotherapy. The patient was hospitalized for worsening shortness of breath. His viral panel was negative. Note that yesterday, the patient underwent a thoracentesis. A total of 600 cc of fluid was aspirated from the right lung. The patient has a fluid that is low in LDH and protein and this is essentially translates. The patient remains on Zosyn as a broad-spectrum antibiotic coverage. The patient is currently on 4 L of O2 nasal cannula. The patient is also on Lasix 80 mg p.o. twice a day. He is on bronchodilators with DuoNeb updrafts. He is also on IV Solu-Medrol. He remains on warfarin 2.5 mg p.o. daily. In terms of his labs, the WBC count is at 6.6 with a hemoglobin 12.3 and a platelet count of 104. BUN is at 43 with a creatinine of 3.4 and sodium is at 136 with a potassium level of 4.3. Awake and alert and sitting up in a chair. Denies having any other specific complaints. He feels better since the thoracentesis. On today's evaluation of chest x-ray and the patient is being seen for a follow-up. The patient had some increased shortness of breath earlier this morning and the patient was brought up to 6 L of oxygen by nasal cannula. The patient seems to be calm and comfortable on this oxygen flow. Chest x-ray showing bilateral pulm infiltrates consistent with CHF. Pneumonia is possible and not completely excluded. The patient is afebrile. The patient is running a softer blood pressure. The aim is to do another session of hemodialysis with a goal of ultrafiltration of 1-2 L. His mean arterial pressure is currently at 64. His pulse ox is 97% on 6 L of oxygen by nasal cannula. He remains on oral Lasix 80 mg twice a day. Urine output is quite diminished and minimal. The patient is also on IV Zosyn. He is known to have cardiomyopathy with impaired LV function. He is on Entresto 1 tablet a day. He is weak, quite lethargic, arousable. He is back on Coumadin his INR is at 1.7. On today's evaluation of 11/15/2023, the patient is resting comfortably in bed and the patient is currently on Oxygen 7 L oxygen per minute nasal cannula to maintain a saturation above 90%. In fact his pulse ox is 100% at this point in time. Blood pressure remains soft 89/54. Family is at the bedside. Note that the patient underwent hemodialysis yesterday with a total of 1 L of ultrafiltration. Respiratory status is stable and the patient is denying having any significant shortness of breath. However, based on his age and various comorbidities, the patient and his family have decided to take the patient home with hospice care. Obviously, the event interested in future dialysis. Nephrology was agreeable to that. Based on this, cessation will be discontinued and hospice consultation will be obtained. Meanwhile, the patient seems to be comfortable at this point on nasal cannula. Objective - Vital Signs Vital signs: Vital Signs Temp 97.5 F L 11/15/23 08:00 Pulse 78 11/15/23 08:45 Resp 16 11/15/23 08:45 BP 90/59 11/15/23 08:00 Pulse Ox 97 11/15/23 08:00 FiO2 50 11/10/23 04:00 Intake & Output 11/14/23 11/15/23 11/15/23 18:59 06:59 18:59 Intake Total 520 275 Output Total 1200 0 0 Balance -680 275 0 Weight 65.317 kg Intake: Intake, IV Titration 100 275 Amount Piperacillin-Tazobactam 3 100 100 .375 gm In Sodium Chloride 0.9% 100 ml @ 25 mls/hr IVPB Q12H [facility] Rx# :[id number] Sodium Chloride 0.9% 1, 175 000 ml @ 50 mls/hr IV . Q20H [facility] Rx#:[id number] Oral 20 0 Hemodialysis 400 Output: Urine 0 0 Hemodialysis 1200 Other: Voiding Method Diaper Diaper Diaper # Voids 0 0 - Exam Lethargic, weak, looks quite debilitated.. Currently on 7 L O2 nasal cannula,, comfortable, no use of accessory muscles of breathing HEENT examination is grossly unremarkable. Mucous membranes are moist. No oral lesions. Neck supple. Full range of motion. No adenopathy thyromegaly or neck vein distention. Cardiovascular examination reveals regular rhythm rate. S1-S2 normal. No S3 or S4. No discernible murmur noted. Lungs reveal bibasilar crackles. Breath sounds are diminished on the right. No wheezes. Abdomen soft bowel sounds are heard. No masses or tenderness. Extremities are intact. No cyanosis clubbing or edema. Skin is without rash or lesion. Neurologic examination is brief but nonfocal. - Labs CBC & Chem 7: 11/13/23 06:42 11/13/23 06:42 Labs: Abnormal Lab Results - Last 24 Hours (Table) 11/14/23 Range/Units 13:21 Procalcitonin 0.18 H (0.02-0.09) ng/mL Microbiology - Last 24 Hours (Table) 11/12/23 10:30 Gram Stain - Preliminary Pleural Fluid Body Fluid Culture - Preliminary Assessment and Plan Plan: Acute hypoxemic respiratory failure, secondary to fluid overload related to missing hemodialysis earlier in the week and an exacerbation of chronic systolic congestive heart failure. The patient presented with worsening fluid overload and the patient is improving with dialysis and furthermore thoracentesis of the right lung was done to remove a total of 600 cc of transudative fluid from the right lung. Chest x-ray showing bilateral pulm infiltrates could be related to CHF and pulm vascular congestion. Pneumonia is felt to be less likely at this point in time. The patient is covered with IV Zosyn. The patient is currently on 7 L O2 nasal cannula. Right-sided pleural effusion S/P right thoracentesis, November 12, 2023. The fluid is a transudate. History of ischemic cardiomyopathy, with a baseline ejection fraction less than 20%, status post AICD/pacemaker. End-stage renal disease, maintained on hemodialysis 3 times a week (T, , MON). Underwent hemodialysis yesterday with a total of 1 L of ultrafiltration Chronic hypotension secondary to above, not requiring any pressors Coronary artery disease, with previous CABG. Diabetes mellitus. History of hyperlipidemia. History of hypertension. History of atrial fibrillation, anticoagulated on warfarin. The current rhythm is paced. INR subtherapeutic at 1.8 History of hypothyroidism. History of mantle cell lymphoma with previous chemotherapy. History of chronic obstructive pulmonary disease, stable. Plan: Plan Titrate oxygen flow to maintain a saturation above 90%. Currently on 7 L nasal cannula Continue aspirin Continue Entresto Continue updrafts Prednisone 20 mg p.o. daily as part of a burst taper Family opted to take this patient home with hospice care. They want to discontinue the hemodialysis. The patient is agreeable today. I think it is reasonable option based on his age and comorbidities. Nephrology is also on the case and they are agreeable. The plan is to consult hospice care of this patie nt. He is comfortable on 7 L O2 nasal cannula.
[2023-11-15] MEDS ORDERED: WARFARIN 2.5 MG TAB PO ONE (18:00)
== END 2023-11-15 18:09 | disposition hospice, inpatient (51) | DRG 291 ==
LOC: EC 14:11 → 3SCARD 17:46
PROVIDERS: ADMIT Family Medicine; ATTEND Family Medicine
PROC: 5A1D70Z Performance of Urinary Filtration, Intermittent, Less than 6 Hours Per Day (ICD-10-PCS; principal; 2023-11-09)
PROC: 0W993ZZ Drainage of Right Pleural Cavity, Percutaneous Approach (ICD-10-PCS; 2023-11-12)
DX: I13.2 Hypertensive heart and chronic kidney disease with heart failure and with stage 5 chronic kidney disease, or end stage renal disease (principal); I50.43 Acute on chronic combined systolic (congestive) and diastolic (congestive) heart failure; J96.01 Acute respiratory failure with hypoxia; N18.6 End stage renal disease; J91.8 Pleural effusion in other conditions classified elsewhere; C85.90 Non-Hodgkin lymphoma, unspecified, unspecified site; I48.20 Chronic atrial fibrillation, unspecified; N17.9 Acute kidney failure, unspecified; Z11.52 Encounter for screening for COVID-19; Z95.810 Presence of automatic (implantable) cardiac defibrillator; I25.5 Ischemic cardiomyopathy; Z99.2 Dependence on renal dialysis; E11.22 Type 2 diabetes mellitus with diabetic chronic kidney disease; I48.0 Paroxysmal atrial fibrillation; Z79.01 Long term (current) use of anticoagulants; Z51.5 Encounter for palliative care; J44.9 Chronic obstructive pulmonary disease, unspecified; E78.5 Hyperlipidemia, unspecified; I25.10 Atherosclerotic heart disease of native coronary artery without angina pectoris; Z95.1 Presence of aortocoronary bypass graft; E03.9 Hypothyroidism, unspecified; M89.8X9 Other specified disorders of bone, unspecified site; Z92.21 Personal history of antineoplastic chemotherapy; D69.6 Thrombocytopenia, unspecified; Z79.890 Hormone replacement therapy; E86.0 Dehydration; E87.5 Hyperkalemia; I08.3 Combined rheumatic disorders of mitral, aortic and tricuspid valves; F41.9 Anxiety disorder, unspecified; I25.2 Old myocardial infarction; I27.20 Pulmonary hypertension, unspecified; I95.3 Hypotension of hemodialysis; Z79.82 Long term (current) use of aspirin; Z79.899 Other long term (current) drug therapy; Z87.891 Personal history of nicotine dependence; Z91.158 Patient's noncompliance with renal dialysis for other reason; Z98.42 Cataract extraction status, left eye; Z98.41 Cataract extraction status, right eye
CPT/HCPCS: 36415; 71045; 71046; 71250; 76604; 80053; 82945; 83615; 83735; 83880; 84100; 84145; 84157; 84484; 85025; 85610; 85730; 86706; 87070; 87102; 87116; 87205; 87206; 87340; 87496; 87498; 87636; 87798; 88108; 88305; 89050; 90935; 93005; 93306; 94640; 94660; 94760; 96361; 96365; 96366; 96375; 96376; 99285